=== PATIENT | male | born 1965 | race Caucasian/White ===

== ENCOUNTER 2018-09-24 10:40 | Emergency (ER) | payer MEDICAID, SELFPAY ==
[2018-09-24 10:42] VITALS: BP 162/88; PULSE 69; RESP 16; TEMP 36.2; O2SAT 96; BMI 37.3
--- NOTE | 2018-09-24 11:02 | US_ITS ---
STUDY: SCROTUM ULTRASOUND REASON FOR EXAM: Male, 52 years old. Swelling in the right testicle. TECHNIQUE: Ultrasound evaluation of the scrotum was performed with color Doppler and static sagastume-scale imaging. COMPARISON: None. FINDINGS: RIGHT TESTICLE INTRATESTICULAR: There is a normal size of the right testicle. The right testicle measures 4.3 cm x 3.5 cm x 3.6 cm. There is a homogenous echotexture. There is normal arterial and normal venous vascularity. There is no demonstrated right testicular mass or cyst. EXTRATESTICULAR: The epididymis is normal in size. The epididymis head measures 1.3 cm x 0.7 cm x 0.8 cm. There is normal vascularity of the epididymis. There is no demonstrated epididymal cystic structure. There is a moderate size hydrocele. There is no demonstrated varicocele. There is no demonstrated extratesticular mass or cyst. LEFT TESTICLE INTRATESTICULAR: There is a normal size of the left testicle. The left testicle measures 4.2 cm x 3.5 cm x 3.4 cm. There is a homogenous echotexture. There is normal arterial and normal venous vascularity. There is no demonstrated left testicular mass or cyst. EXTRATESTICULAR: The epididymis is normal in size. The epididymis head measures 1.2 cm x 1 cm. cm. There is normal vascularity of the epididymis. There is no demonstrated epididymal cystic structure. There is a moderate size hydrocele. There is no demonstrated varicocele. There is no demonstrated extratesticular mass or cyst. US/Testicular with Arterial Flow IMPRESSION: Moderate sized bilateral hydroceles. Electronically Signed: Melquiades Stallings MD at 13:40 EDT Tel [phone], Service support ,
[2018-09-24 11:40] VITALS: RESP 14
[2018-09-24 11:49] LABS: Bacteria 0 SEEN /hpf (None Seen); Color, Urine Yellow (Yellow); Glucose, Dipstick Normal (Normal); Ketone-Dipstick Negative (Negative); Leukocyte Esterase-Dipstick 500 /ul (Negative); Mucous, Urine 0 SEEN /hpf (<or=2+); Nitrite-Dipstick Negative (Negative); Occult Blood-Urine 250 /ul (Negative); Protein-Dipstick 30 mg/dl (Negative); Urine Bilirubin Dipstick Negative (Negative); Urine Clarity Sl. Cloudy (Clear); Urine Urobilinogen Normal (Normal)
[2018-09-24 11:56] LABS: Red Blood Cells-Urine 25-50 SEEN /hpf (0-5); Squamous Epithelial Cells - UA 0-5 SEEN /hpf (0-5); White Blood Cells 25-50 SEEN /hpf (0-5)
--- NOTE | 2018-09-24 12:24 | ED.VISSUMM ---
- ER Visit Summary Date of Service: 09/24/18 Chief Complaint: Testicular swelling History of Present Illness: The patient is a 52 M presenting for evaluation secondary to testicular swelling. Patient reports that today when he was washing himself he noted that his right testicle swollen. He is unsure if there is any sort of injury associated with this, and states that he did not really notice it yesterday. He reports that he recently has been having some issues with urinary urgency, and this week he had a single episode of hematuria. Patient denies any presence of fevers or flank pain. Denies any penile discharge. He denies any significant rashes over his groin area. He does have an underlying history of diabetes. Patient reports that he has lost about 100 pounds in the last year and a half that this was intentional. Review of systems otherwise negative. Physical Examination: Vital signs notable for mild hypertension 162/88. Obese male no acute distress. Moist mucous membranes no conjunctival pallor or scleral icterus. Heart was regular rate and rhythm, no JVD was noted. Lung sounds clear no respiratory distress. Abdomen soft nontender. exam shows right testicular swelling with some tenderness to palpation. There is a very minimal amount of scrotal erythema with no evidence of tracking into the perineum no evidence of Mary Jane's gangrene or subcutaneous emphysema. No penile discharge. Testicles appear to be in a normal lie. Test Results: Urinalysis shows up to 50 whites and 50 reds. Testicular ultrasound shows good flow with no evidence of masses Emergency Department Course and Treatment: Patient presented for evaluation secondary to blood in the urine and enlargement of his right testicle. Workup is noted as above and shows some evidence of infection. Patient likely has an element of epididymitis at this point. He will be treated with a course of Cipro and will follow up with primary care. Disposition: Discharge Impression: 1. Epididymitis This note was generated with [employer] dictation software. It may contain incorrect words, spelling, and punctuation that were not noted in review of the chart prior to signing ED Disposition - Plan for ED Patient: Disposition: Home or Assisted Living Chief Complaint: Complaint Diagnosis: Acute epididymitis Instructions: ED Epididymitis Prescriptions: Ciprofloxacin [Cipro] 500 mg PO BID #14 tab Referrals: Galina Darden NP-C [Primary Care Provider] - 5-7 Days
[2018-09-24 14:21] VITALS: BP 176/90; PULSE 80; RESP 17; O2SAT 99
--- NOTE | 2018-09-24 14:21 | ED.RN ---
DISCHARGE INSTRUCTIONS GIVEN TO AND REVIEWED WITH PATIENT, PATIENT DENIES QUESTIONS OR CONCERNS AND VOICES UNDERSTANDING OF DISCHARGE INSTRUCTIONS. PT AMBULATES OUT OF ROOM WITHOUT DIFFICULTY.
== END 2018-09-24 14:23 | disposition home or self-care (01) ==
PROVIDERS: Emergency Provider Emergency Medicine; Family Provider Nurse Practitioner Family; PCP Nurse Practitioner Family
DX: N45.1 Epididymitis (principal); R31.9 Hematuria, unspecified; E66.9 Obesity, unspecified; I11.0 Hypertensive heart disease with heart failure; I50.9 Heart failure, unspecified; J44.9 Chronic obstructive pulmonary disease, unspecified; E11.9 Type 2 diabetes mellitus without complications; I48.91 Unspecified atrial fibrillation; Z79.899 Other long term (current) drug therapy
CPT/HCPCS: 76870; 81001; 93976; 99283

== ENCOUNTER → 2018-10-05 09:57 | Outpatient (CLI) | payer MEDICAID, SELFPAY ==
--- NOTE | 2018-10-05 12:59 | PFT ---
INTRODUCTION: The patient is a 53-year-old male that presents for pulmonary function testing secondary to a diagnosis of COPD. Respiratory therapy reports good patient effort. Bronchodilators were used during testing. INTERPRETATION: Forced expiration spirometry demonstrates no evidence of a large airways obstructive ventilatory defect. There was no significant response to aerosolized bronchodilators. Spirograms are of good quality and plateau normally. The respiratory flow volume loop appears normal. Body plethysmography was performed and reveals lung volumes to be within normal limits. Diffusing capacity by single breath CO is also within normal limits. There has been improvement in the patient's PFTs since they were last completed in 2017. IMPRESSION: Grossly normal pulmonary function testing.
== END ==
PROVIDERS: Family Provider Nurse Practitioner Family; PCP Nurse Practitioner Family; Referring Provider Nurse Practitioner Acute Care; Visit Provider Nurse Practitioner Acute Care
DX: J44.9 Chronic obstructive pulmonary disease, unspecified (principal)
CPT/HCPCS: 94060; 94726; 94729

== ENCOUNTER → 2018-10-06 11:05 | Outpatient (CLI) | payer MEDICAID, SELFPAY ==
[2018-10-06 11:22] VITALS: PULSE 55; PULSE 70; PULSE 88; PULSE 89; PULSE 90; PULSE 91; PULSE 92; O2SAT 92; O2SAT 94; O2SAT 95; O2SAT 96
--- NOTE | 2018-10-06 13:22 | PCM.PSN.6M ---
PSN 6 Minute Walk Test - 6 Minute Walk Test 6 Minute Walk Test: 6 Minute Walk Test PSN:6-Minute Walk Test Start: 10/06/18 11:22 Freq: Status: Active Protocol: RESP.6MINW Document 10/06/18 11:22 PRIETO (Rec: 10/06/18 11:24 PRIETO [id number]) 6 Minute Walk Test Date Performed 10/06/18 Time Performed 11:15 Height 6 ft 4 in Weight: 323 lb Weight in Pounds 323.[address]: Pee Castillo Assistive device used: None Pre-test Oxygen Delivery Method Room Air Pulse Ox (%) 95 Pulse Rate (60-100 beats/min) 55 L Dyspnea Darnell Scale (0-10) 0 Exertion Darnell Scale (6-20) 6 1st minute Oxygen Delivery Method Room Air Pulse Ox (%) 95 Pulse Rate (60-100 beats/min) 88 2nd minute Oxygen Delivery Method Room Air Pulse Ox (%) 92 Pulse Rate (60-100 beats/min) 92 3rd minute Oxygen Delivery Method Room Air Pulse Ox (%) 94 Pulse Rate (60-100 beats/min) 89 4th minute Oxygen Delivery Method Room Air Pulse Ox (%) 94 Pulse Rate (60-100 beats/min) 91 5th minute Oxygen Delivery Method Room Air Pulse Ox (%) 94 Pulse Rate (60-100 beats/min) 90 6th minute Oxygen Delivery Method Room Air Pulse Ox (%) 96 Pulse Rate (60-100 beats/min) 90 Dyspnea Darnell Scale (0-10) 1 Exertion Darnell Scale (6-20) 12 Post-test Oxygen Delivery Method Room Air Pulse Ox (%) 95 Pulse Rate (60-100 beats/min) 70 Full Laps Walked 19 Partial Lap, Number of Tiles Walked 0 Total Distance Walked (ft) 1121 - Interpretation Interpretation: The patient ambulated 1121 feet over the course of 6 minutes beginning on room air without assistive devices or breaks. Pretesting oxygen saturation was noted to be 95% on room air. With ambulation, the yaneth oxygen saturation was 92%. There was no significant exertional oxygen desaturation. - Recommendations Recommendations: There is no indication for the use of supplemental oxygen at this time.
== END ==
PROVIDERS: Family Provider Nurse Practitioner Family; PCP Nurse Practitioner Family; Referring Provider Nurse Practitioner Acute Care; Visit Provider Nurse Practitioner Acute Care
DX: J44.9 Chronic obstructive pulmonary disease, unspecified (principal)
CPT/HCPCS: 94618

== ENCOUNTER 2019-02-21 07:40 | Emergency (ER) | payer MEDICAID, SELFPAY ==
[2018-10-18 13:11] VITALS: BMI 39.4
[2019-02-21 07:42] VITALS: BP 157/89; PULSE 81; RESP 16; TEMP 36.8; O2SAT 97; BMI 37.6
--- NOTE | 2019-02-21 07:58 | RAD_ITS ---
STUDY: X-RAY CHEST REASON FOR EXAM: Male, 53 years old. 12 hour history of shortness of breath. TECHNIQUE: PA and lateral views of the chest. COMPARISON: Comparison is made with prior examination dated November 08, 2010. FINDINGS: EKG electrodes are seen. There is evidence of a focal area of infiltrate in the lateral aspect of the right mid lung. There is also evidence of bowel widening of the right paratracheal space suggestive of possible adenopathy. There is blunting of the right costophrenic angle. Normal size heart. Normal mediastinum and inge. Normal visualized pulmonary arteries. There is atherosclerotic calcification of the aortic arch with tortuosity. There are diffuse degenerative changes of the visualized thoracic spine. Normal visualized ribs, clavicles, and shoulders. There is no demonstrated abnormality of the visualized soft tissue structures of the upper abdomen. RAD/Chest PA and Lateral IMPRESSION: Focal infiltrate in the lateral aspect of the right mid lung with possible right paratracheal lymph nodes. Follow-up is recommended. Electronically Signed: Melquiades Stallings, at 9:02 EDT , Service support ,
--- NOTE | 2019-02-21 08:02 | ED.DCSUM_ITS ---
- ER Visit Summary Date of Service: 02/21/19 Chief Complaint: Shortness of breath History of Present Illness: The patient is a 53 M who presents with shortness of breath that has been getting worse over the past 12 hours. Patient states he has been having some cough with some clear sputum. Patient states the sputum did appear to be pink at times but states she was eaten candy canes last night prior to that. Patient denies any fevers but admits to subjective chills. Patient states he has had an upper respiratory infection with rhinorrhea and sore throat. Patient also admits to right-sided pleuritic chest pain. Patient denies any nausea or vomiting. Patient denies any abdominal pain. Physical Examination: Vital signs are stable. Patient is afebrile. Patient is in no acute distress. Oral mucosa is pink and moist. Neck is supple. Trachea is midline. There is no JVD noted. Heart was irregularly irregular. Lungs were diminished bilaterally. There is adequate respiratory effort noted. Abdomen is soft. Bowel sounds are normal. There is no tenderness. Cranial nerves II through XII are intact. There are no focal motor or sensory deficits noted. The remaining physical exam is within normal limits. Test Results: CBC and comprehensive metabolic profile within normal limits. PA and lateral chest x-ray shows an infiltrate in the lateral right mid lung field. Emergency Department Course and Treatment: Patient was given a DuoNeb aerosol here. Patient was given a prescription for Zithromax. Patient was instructed to follow-up with his primary care physician in 5-7 days. Patient understood and was agreeable with the plan. All questions were answered. Disposition: Discharge home Impression: Community-acquired pneumonia This note was generated with [employer] dictation software. It may contain incorrect words, spelling, and punctuation that were not noted in review of the chart prior to signing ED Disposition - Plan for ED Patient: Disposition: Home or Assisted Living Diagnosis: Community acquired pneumonia Instructions: ED Pneumonia Adult Prescriptions: Azithromycin [Zithromax Z-Robert] 250 mg PO UD #1 box Referrals: Galina Darden, LORI-C [Primary Care Provider] - 5-7 Days
[2019-02-21] MEDS: Ipratropium/Albuterol Sulfate 3 ML AMPUL.NEB INHALATION (08:11)
[2019-02-21 08:13] VITALS: PULSE 64; RESP 17; O2SAT 96
[2019-02-21 08:20] LABS: Absolute Lymphocyte Count 1.44 X10^3/ul (0.83-4.51); Absolute Neutrophil Count 5.2 X10^3/uL (2.0-7.7); Basophil# 0.01 X10^3/uL; Basophil% 0.1 % (0-1); Eosinophil# 0.06 X10^3/uL; Eosinophils% 0.8 % (0-5); Hematocrit 46.2 % (40-54); Hemoglobin 15.7 g/dl (13.0-16.5); Lymphocyte # 1.44 X10^3/ul (4.0); Lymphocyte % 20.1 % (19-41); Mean Corpuscular Hgb 30.4 pg (27.0-32.0); Mean Corpuscular Volume 89.5 fL (80-94); Mean Platelet Vol. 9.9 fl (6.2-12.0); Monocyte# 0.43 X10^3/uL; Neutrophil # 5.23 X10^3/uL (2.7-7.7); POSITIVE COUNT NO; POSITIVE DIFFERENTIAL NO; POSITIVE MORPHOLOGY NO; Platelet Count 211 K/mm3 (150-450); RBC Distribution Width CV 13.5 % (11.6-14.6); RBC Distribution Width SD 44.7 fl (35.1-43.9); Red Blood Count 5.16 M/mm3 (4.6-6.2); White Blood Count 7.2 K/mm3 (4.4-11.0)
[2019-02-21 08:23] VITALS: O2SAT 97
[2019-02-21 08:24] VITALS: BP 159/94; PULSE 74; RESP 18; O2SAT 96; O2SAT 97
[2019-02-21 08:29] LABS: ALB/GLOB Ratio 0.9 RATIO (0.9-2.4); AST(SGOT) 12 U/L (15-37); Alanine Aminotransfer ALT/SGPT 17 U/L (16-61); Albumin, Serum 3.6 g/dL (3.2-5.0); Alkaline Phosphatase 61 U/L (45-117); Anion Gap 7 (5-15); BUN 9 mg/dL (7-18); Calcium,Total 9.3 mg/dL (8.5-10.1); Chloride 103 mmol/L (98-107); EST Glomerular Filtration Rate 83 mL/min (>60); Est Glom Filt Rate - Afr Amer 100 mL/min (>60); Estimated Creatinine Clearance 103.68 ml/min; Glucose 97 mg/dL (74-106); Potassium 3.9 mmol/L (3.5-5.1); Protein, Total 7.6 g/dL (6.4-8.2); Sodium Level 139 mmol/L (136-145)
[2019-02-21] MEDS: Acetaminophen 500 MG Tablet 1000 MG PO (08:51)
[2019-02-21 09:21] VITALS: PULSE 70; RESP 20; O2SAT 94
== END 2019-02-21 09:22 | disposition home or self-care (01) ==
PROVIDERS: Emergency Provider Emergency Medicine; Family Provider Nurse Practitioner Family; PCP Nurse Practitioner Family
DX: J18.9 Pneumonia, unspecified organism (principal); J45.909 Unspecified asthma, uncomplicated; I10 Essential (primary) hypertension; E78.00 Pure hypercholesterolemia, unspecified; G47.33 Obstructive sleep apnea (adult) (pediatric); I48.91 Unspecified atrial fibrillation; Z72.0 Tobacco use; Z79.51 Long term (current) use of inhaled steroids; Z79.899 Other long term (current) drug therapy
CPT/HCPCS: 71046; 80053; 85025; 94640; 99285; A4216

== ENCOUNTER 2019-02-26 13:50 | Inpatient (IN) | payer MEDICAID, SELFPAY ==
[2019-02-26] VITALS (12 sets, daily range): BP systolic 170–202; BP diastolic 68–98; PULSE 85–111; RESP 16–26; TEMP 36.9–38.8; O2SAT 92–96; BMI 36.6; BMI 36.4; BMI 36.5
--- NOTE | 2019-02-26 13:58 | EKG12_ITS ---
Test Reason : SOB Blood Pressure : / mmHG Vent. Rate : 098 BPM Atrial Rate : 083 BPM P-R Int : 000 ms QRS Dur : 074 ms QT Int : 334 ms P-R-T Axes : 000 -38 074 degrees QTc Int : 426 ms Atrial fibrillation Left axis deviation Anteroseptal infarct (cited on or before 11-APR-2016), age undetermined Abnormal ECG Confirmed by ANNA BARKLEY, HÉCTOR ([id number]), features editor SARY OLIVO ([id number]) on 03/01/2019 1:09:38 PM Referred By: DEANNE Confirmed By:HÉCTOR CASTILLO MD
--- NOTE | 2019-02-26 15:25 | RAD_ITS ---
STUDY: X-RAY CHEST REASON FOR EXAM: Male, 53 years old. Coughing up blood TECHNIQUE: AP COMPARISON: 02/21/2019 FINDINGS: EKG leads project over the chest. Airspace consolidation of the lateral right upper lobe is worse since the prior study. There is no demonstrated pleural abnormality. Normal size heart. Normal mediastinum and inge. Normal visualized pulmonary arteries. Normal visualized aortic arch and descending thoracic aorta. Normal visualized thoracic spine. Normal visualized ribs, clavicles, and shoulders. There is no demonstrated abnormality of the visualized soft tissue structures of the upper abdomen. RAD/Chest 1 View (Portable) IMPRESSION: 1. Worsening right upper lobe consolidation compatible with pneumonia. Electronically Signed: Wilfred Burgess MD at 15:51 EDT , Service support ,
--- NOTE | 2019-02-26 15:28 | ED.VISSUMM ---
- ER Visit Summary Date of Service: 02/26/19 Chief Complaint: Cough History of Present Illness: The patient is a 53 M who was seen in the ER on the for pneumonia. He was treated with a Z-Robert and states he took his last dose yesterday. Patient still has significant cough, short of breath with any exertion, and chills. He states he was using his CPAP a couple nights ago when the water ran out. He woke up very dry and it did have some bloody sputum when he was coughing. Today he sat with his CPAP on all day because he felt like he could not catch his breath. Past history is significant for COPD, diabetes, hypertension, high cholesterol, atrial fibrillation. Patient is currently on Xarelto. Physical Examination: Blood pressure is 185/95, temperature 99.2 in triage, heart rate 85, respiratory rate 26, pulse ox 95% on room air. The time of my exam his oral temperature is 100.4. Patient sitting upright in bed. He is nontoxic appearing. He has dry mucous membranes. Heart is irregular. Lungs sounds are slightly diminished throughout. Abdomen is soft nontender. Test Results: EKG is A. fib at 98 with no sign of acute ischemia. Portable chest x-ray shows worsening right upper lobe consolidation compatible with pneumonia. CBC was normal white count but left shift is noted with 80% neutrophils. Chemistry studies reveal a sodium of 133. Lactate is normal at 1.2. Blood cultures were sent. Emergency Department Course and Treatment: Patient was given Tylenol for fever along with a DuoNeb treatment and IV fluids. Patient had only been given Zithromax previously. He is given Rocephin and Zithromax at this time. Patient be admitted for further antibiotic treatment. Treatment Plan: [] Disposition: Admit Impression: Pneumonia with failed outpatient management This note was generated with [employer] dictation software. It may contain incorrect words, spelling, and punctuation that were not noted in review of the chart prior to signing ED Disposition - Plan for ED Patient: Referrals: Galina Darden NP-C [Primary Care Provider] -
[2019-02-26] MEDS: Acetaminophen 500 MG Tablet 1000 MG PO (15:31)
[2019-02-26] MEDS: 0.9% Normal Saline 1,000 ML 150 ML IV (15:31)
[2019-02-26] MEDS: Ipratropium/Albuterol Sulfate 3 ML AMPUL.NEB INHALATION (15:42)
[2019-02-26 15:46] LABS: Absolute Lymphocyte Count 0.72 X10^3/ul (0.83-4.51); Absolute Neutrophil Count 7.2 X10^3/uL (2.0-7.7); Basophil# 0.01 X10^3/uL; Basophil% 0.1 % (0-1); Eosinophil# 0.01 X10^3/uL; Eosinophils% 0.1 % (0-5); Hematocrit 46.1 % (40-54); Hemoglobin 15.8 g/dl (13.0-16.5); Lymphocyte # 0.72 X10^3/ul (4.0); Lymphocyte % 8.1 % (19-41); Mean Corp Hgb Conc 34.3 g/gl (32-36); Mean Corpuscular Hgb 30.3 pg (27.0-32.0); Mean Corpuscular Volume 88.3 fL (80-94); Mean Platelet Vol. 10.4 fl (6.2-12.0); Monocyte# 1.02 X10^3/uL; Monocyte% 11.4 % (0-10); Neutrophil # 7.17 X10^3/uL (2.7-7.7); Neutrophil % 80.2 % (47-70); Platelet Count 239 K/mm3 (150-450); RBC Distribution Width CV 13.1 % (11.6-14.6); RBC Distribution Width SD 42.4 fl (35.1-43.9); Red Blood Count 5.22 M/mm3 (4.6-6.2); White Blood Count 8.9 K/mm3 (4.4-11.0)
[2019-02-26 15:48] LABS: POSITIVE COUNT NO; POSITIVE DIFFERENTIAL NO; POSITIVE MORPHOLOGY NO
[2019-02-26 15:53] LABS: Anion Gap 5 (5-15); BUN 8 mg/dL (7-18); BUN/Creat Ratio 9.2 RATIO (10-20); Calcium,Total 9.2 mg/dL (8.5-10.1); Chloride 103 mmol/L (98-107); Creatinine, Serum 0.87 mg/dL (0.70-1.30); EST Glomerular Filtration Rate 97 mL/min (>60); Est Glom Filt Rate - Afr Amer 118 mL/min (>60); Estimated Creatinine Clearance 119.17 ml/min; Glucose 114 mg/dL (74-106); Potassium 4.5 mmol/L (3.5-5.1); Sodium Level 133 mmol/L (136-145)
[2019-02-26] MEDS: Azithromycin 250 MG Tablet 500 MG PO (16:29)
[2019-02-26 16:33] LABS: Lactic Acid 1.2 mmol/L (0.4-2.0)
[2019-02-26] MEDS: Ceftriaxone 1 GM/50 ML BAG IV (16:41)
--- NOTE | 2019-02-26 17:42 | PCM.HP.STD ---
<Hernandez Haynesssica - Last Filed: 02/26/19 17:58> Problem List (1) 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 classification Status: Chronic Comment: 76% predicted (2) Marijuana abuse Status: Chronic (3) Tobacco abuse Status: Chronic (4) Lung nodule Status: Chronic (5) Edema Status: Chronic (6) ALEX (obstructive sleep apnea) Status: Chronic Comment: CPAP 10 cm of water (7) Asthma, moderate persistent Status: Chronic (8) HTN (hypertension) Status: Chronic (9) Nicotine abuse Status: Chronic (10) Persistent atrial fibrillation Status: Chronic (11) Diabetes mellitus Status: Chronic (12) Hyperlipidemia Status: Chronic History of Present Illness Date of Admission: 02/26/19 Chief Complaint: Cough, fever, malaise. The patient is a 53 year old M who presents emergency room due to cough, fever and general malaise. He reports he initially presented to ER on Thursday and was diagnosed with pneumonia and discharged on Z-Robert which he completed last dose yesterday. His symptoms have not improved. He reports shortness of breath, productive cough. He also reports intermittent nausea, vomiting, diarrhea which he states is currently resolved. He denies other associated symptoms. He has a past medical history of COPD, ALEX, persistent atrial fibrillation, type 2 diabetes mellitus, hypertension, hyperlipidemia, marijuana and tobacco dependence. Past Medical History Past Medical History (Chronic Problems): Chronic Problems (Last Reviewed 10/18/18 @ 13:27 by Yesi Zuniga) 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 classification (Chronic) 76% predicted Marijuana abuse (Chronic) Tobacco abuse (Chronic) Lung nodule (Chronic) Edema (Chronic) ALEX (obstructive sleep apnea) (Chronic) CPAP 10 cm of water Asthma, moderate persistent (Chronic) HTN (hypertension) (Chronic) Nicotine abuse (Chronic) Persistent atrial fibrillation (Chronic) Diabetes mellitus (Chronic) Hyperlipidemia (Chronic) Medical History: Medical History (Last Reviewed 10/18/18 @ 13:27 by Yesi Zuniga) Marijuana abuse (Chronic) F12.10 Tobacco abuse (Chronic) Z72.0 Lung nodule (Chronic) R91.1 Chest pain (Chronic) R07.9 Edema (Chronic) R60.9 ALEX (obstructive sleep apnea) (Chronic) G47.33 CPAP 10 cm of water Asthma, moderate persistent (Chronic) J45.40 HTN (hypertension) (Chronic) I10 Persistent atrial fibrillation (Chronic) I48.1 Diabetes mellitus (Chronic) E11.9 Hyperlipidemia (Chronic) E78.5 Allergies pioglitazone HCl [From [employer]] Adverse Reaction (Verified 02/26/19 13:54) Other Home Medications: Ambulatory Orders Medication Instructions Recorded Fluoxetine [Prozac] 60 mg PO DAILY 02/05/15 Metoprolol(XL)Succ [Toprol Xl 50 mg PO DAILY 02/05/15 (Beta Eufemia)] Albuterol Sulfate [Proair 2 puff IH Q4H PRN PRN 04/11/16 Respiclick] Fluticasone 0.05% [Flonase Nasal 2 spray NASAL DAILY PRN PRN 04/11/16 [place]] Furosemide [Lasix] 40 mg PO MOWEFR 04/11/16 Pravastatin [Pravachol] 40 mg PO QHS 04/11/16 rivaroxaban 20 mg tablet 20 mg PO QDAY #30 tab 01/18/18 fluticasone furoate 200 1 inh INHALATION QDAY #60 ea 09/17/18 mcg-vilanterol 25 mcg/dose inhalation powder tiotropium bromide 2.5 2 puff INHALATION DAILY #4 g 10/18/18 mcg/actuation mist for inhalation amlodipine 5 mg tablet 5 mg PO DAILY #30 tab 12/17/18 doxazosin 2 mg tablet 2 mg PO QHS #30 tab 12/17/18 losartan 50 mg tablet 50 mg PO BID #180 tab 12/17/18 Azithromycin [Zithromax Z-Robert] 250 mg PO UD #1 box 02/21/19 Surgical History: Surgical History (Last Reviewed 02/26/19 @ 17:47 by ROBERT Torres) History of stomach ulcers Z87.19 cauterization History of tonsillectomy (Resolved) Z98.890, Z90.89 Pilonidal cyst (Resolved) Onset Date: ~1986 L Surgical History: tonsillectomy Psychiatric History: No pertinent psych hx Lives: With Family Smoking Status: Current every day smoker Tobacco Use: Cigarettes Alcohol: None Drugs: Marijuana - *Family History Maternal Family History: Family History (Last Reviewed 02/26/19 @ 17:48 by ROBERT Torres) Father CVA (cerebral vascular accident) Hypertension CAD (coronary artery disease) Mother Sudden cardiac Other Family history of hyperlipidemia Family history of hypertension Family history of sudden cardiac Paternal Family History: Family History (Last Reviewed 02/26/19 @ 17:48 by ROBERT Torres) Father CVA (cerebral vascular accident) Hypertension CAD (coronary artery disease) Mother Sudden cardiac Other Family history of hyperlipidemia Family history of hypertension Family history of sudden cardiac Review of Systems Constitutional: Reports: Chills, Fever, Malaise HEENT: Reports: Sinus Congestion. Denies: Head Aches, Sinus Drainage Cardiovascular: Denies: Chest Pain, Palpitations Respiratory: Reports: Cough, Shortness of Breath, Sputum production Gastrointestinal: Reports: Diarrhea, Nausea, Vomiting. Denies: Abdominal Pain Genitourinary: Denies: Dysuria Musculoskeletal: Denies: Joint Pain, Joint Tenderness Skin: Denies: Rash, Wounds Neurological: Denies: Numbness, Tingling, Focal weakness Psychiatric: Denies: Anxiety, Depression, Homicidal Ideations, Suicidal Ideations Hematologic/ Lymphatic: Denies: Easy Bruising, Easy Bleeding VTE Information - Inpt Only VTE Present on Admission: No VTE Mechan Device Prophylaxis: None VTE Pharm Prophylaxis ordered?: Yes - Physical Exam General: Alert, Oriented x3, Cooperative HEENT: Atraumatic, PERRLA, EOMI, Normocephalic Oral: Moist Mucosa Neck: Supple, No JVD, Negative Carotid Bruits Lungs: Clear to auscultation, Diminished Cardiovascular: Regular Rhythm, Normal S1, Normal S2, No murmurs, Tachycardic Abdomen: Bowel Sounds Present, Soft, Non Tender, Non-Distended, Obese Extremities: No clubbing, No cyanosis, No edema, Capillary Refill Less than 3 Seconds Skin: No rashes, No breakdown, - - Chronic skin changes with hyperpigmentation bilateral lower extremities. Musculoskeletal: No Tenderness to Palpation of Joints or Extremities Neurological: Cranial nerves II-XII grossly intact, Neuro grossly intact Psych/Mental Status: Normal Affect, Appropriate Vital Signs Temp Pulse Resp BP Pulse Ox 100.4 F H 110 H 16 184/71 H 96 02/26/19 16:13 02/26/19 16:13 02/26/19 16:13 02/26/19 16:13 02/26/19 16:13 Oxygen Flow Rate (L/min) 2 Oxygen Delivery Method Nasal Cannula Weight: 301 lb Body Mass Index (BMI) 36.6 Laboratory Tests Past 24 Hrs 02/26/19 02/26/19 02/26/19 15:34 15:34 15:50 WBC 8.9 RBC 5.22 Hgb 15.8 Hct 46.1 MCV 88.3 MCH 30.3 MCHC 34.3 RDW 13.1 RDW Differential 42.4 Plt Count 239 MPV 10.4 Immature Gran % (Auto) 0.100 Neut % (Auto) 80.2 H Lymph % (Auto) 8.1 L [place] % (Auto) 11.4 H Eos % (Auto) 0.1 Baso % (Auto) 0.1 Absolute Neuts (auto) 7.2 Absolute Lymphs (auto) 0.72 L Total Counted Not Reportable Sodium 133 L Potassium 4.5 Chloride 103 Carbon Dioxide 25.0 Anion Gap 5 BUN 8 Creatinine 0.87 Estim Creat Clear Calc 119.17 Est GFR (MDRD) Af Amer 118 Est GFR (MDRD) Non-Af 97 BUN/Creatinine Ratio 9.2 L Glucose 114 H Lactic Acid 1.2 Calcium 9.2 Assessment/Plan All Active Problems (Last Reviewed 02/26/19 @ 17:47 by Yesi Haynes, LORI-C) History of tonsillectomy (Resolved) Pilonidal cyst (Resolved ~1986) 1. Acute community-acquired right upper lobe pneumonia, failed outpatient antibiotic therapy with Z-Robert-chest x-ray on admission with worsening right upper lobe consolidation compatible with pneumonia. Patient was placed on supplemental oxygen although he was not noted to be hypoxic. Send sputum for culture. Blood cultures pending. Urine for strep and Legionella. Albuterol and DuoNeb aerosols. Wean oxygen as tolerated. IV unasyn. Given patient's report of nausea/vomiting/diarrhea which has since resolved, suspicious for viral etiology along with pneumonia. Will check respiratory panel/influenza. 2. Chronic COPD-no acute exacerbation. Follows with Dr. Castillo. 3. ALEX-continue home CPAP regimen. 4. Persistent atrial fibrillation-continue home metoprolol, Xarelto regimen. 5. Type 2 diabetes mellitus-hold oral regimen. Accu-Cheks AC at bedtime with sliding scale insulin. 6. Hypertension-stable, continue home amlodipine, losartan, metoprolol regimen. 7. Hyperlipidemia- continue statin. 8. Marijuana and tobacco dependence-encourage smoking cessation. Requesting nicotine replacement patch. 9. Obesity-reports 140 pound weight loss in the past year. Encouraged continued diet lifestyle modifications. DVT prophylaxis-Lovenox subcu This patient was seen by ROBERT Torres under the supervision of Dr. Peace. <Soham Peace Mariano - Last Filed: 02/26/19 18:03> History of Present Illness The patient is a 53 year old M [] Past Medical History Medical History: Medical History (Last Reviewed 10/18/18 @ 13:27 by Yesi Zuniga) Marijuana abuse (Chronic) F12.10 Tobacco abuse (Chronic) Z72.0 Lung nodule (Chronic) R91.1 Chest pain (Chronic) R07.9 Edema (Chronic) R60.9 ALEX (obstructive sleep apnea) (Chronic) G47.33 CPAP 10 cm of water Asthma, moderate persistent (Chronic) J45.40 HTN (hypertension) (Chronic) I10 Persistent atrial fibrillation (Chronic) I48.1 Diabetes mellitus (Chronic) E11.9 Hyperlipidemia (Chronic) E78.5 Allergies pioglitazone HCl [From [employer]] Adverse Reaction (Verified 02/26/19 13:54) Other Surgical History: Surgical History (Last Reviewed 02/26/19 @ 17:47 by ROBERT Torres) History of stomach ulcers Z87.19 cauterization History of tonsillectomy (Resolved) Z98.890, Z90.89 Pilonidal cyst (Resolved) Onset Date: ~1986 L05.91 - *Family History Maternal Family History: Family History (Last Reviewed 02/26/19 @ 17:48 by ROBERT Torres) Father CVA (cerebral vascular accident) Hypertension CAD (coronary artery disease) Mother Sudden cardiac Other Family history of hyperlipidemia Family history of hypertension Family history of sudden cardiac Paternal Family History: Family History (Last Reviewed 02/26/19 @ 17:48 by ROBERT Torres) Father CVA (cerebral vascular accident) Hypertension CAD (coronary artery disease) Mother Sudden cardiac Other Family history of hyperlipidemia Family history of hypertension Family history of sudden cardiac - Physical Exam Vital Signs Temp Pulse Resp BP Pulse Ox 100.4 F H 110 H 16 184/71 H 96 02/26/19 16:13 02/26/19 16:13 02/26/19 16:13 02/26/19 16:13 02/26/19 16:13 Oxygen Flow Rate (L/min) 2 Oxygen Delivery Method Nasal Cannula Weight: 301 lb Body Mass Index (BMI) 36.6 Laboratory Tests Past 24 Hrs 02/26/19 02/26/19 02/26/19 15:34 15:34 15:50 WBC 8.9 RBC 5.22 Hgb 15.8 Hct 46.1 MCV 88.3 MCH 30.3 MCHC 34.3 RDW 13.1 RDW Differential 42.4 Plt Count 239 MPV 10.4 Immature Gran % (Auto) 0.100 Neut % (Auto) 80.2 H Lymph % (Auto) 8.1 L [place] % (Auto) 11.4 H Eos % (Auto) 0.1 Baso % (Auto) 0.1 Absolute Neuts (auto) 7.2 Absolute Lymphs (auto) 0.72 L Total Counted Not Reportable Sodium 133 L Potassium 4.5 Chloride 103 Carbon Dioxide 25.0 Anion Gap 5 BUN 8 Creatinine 0.87 Estim Creat Clear Calc 119.17 Est GFR (MDRD) Af Amer 118 Est GFR (MDRD) Non-Af 97 BUN/Creatinine Ratio 9.2 L Glucose 114 H Lactic Acid 1.2 Calcium 9.2 Code Visit Addendum: Dr. Peace I personally examined the patient and reviewed the chart. I agree with the above. 53-year-old male who presented to the ER 5 days ago was found to have a right midlung infiltrate and was discharged on Z-Robert. He presents back today with no improvement and actually feels a little bit worse than when he was in the ER previously. He is found to have a larger consolidation on his right mid lung and is now requiring oxygen via nasal cannula to maintain his O2 sat above 92%. Will admit for community-acquired pneumonia and provide Unasyn and azithromycin. He did receive a dose of azithromycin in the ER today. Inpatient E&M: 78443 Init Hosp L3
[2019-02-26] MEDS: 0.9% Normal Saline 1,000 ML 125 ML IV (19:48)
--- NOTE | 2019-02-26 20:10 | EKG12_ITS ---
Test Reason : CHEST PAIN Blood Pressure : / mmHG Vent. Rate : 102 BPM Atrial Rate : 127 BPM P-R Int : 000 ms QRS Dur : 074 ms QT Int : 338 ms P-R-T Axes : 000 -42 099 degrees QTc Int : 440 ms Atrial fibrillation with premature ventricular or aberrantly conducted complexes Left axis deviation Septal infarct , age undetermined , cannot be excluded T wave abnormality, consider lateral ischemia Abnormal ECG Confirmed by TOMAS BARKLEY, ANDREY ([id number]), photograph editor SARY OLIVO ([id number]) on 03/07/2019 11:58:20 AM Referred By: PRIMO Confirmed By:ANDREY MARIN MD
[2019-02-26] MEDS: Metoprolol(XL)Succ 50 MG Tablet PO (20:19)
[2019-02-26] MEDS: Pravastatin 40 MG Tablet PO (20:19)
[2019-02-26] MEDS: Rivaroxaban 20 MG Tablet PO (20:20)
[2019-02-26] MEDS: Losartan Potassium 50 MG Tablet PO (20:20)
[2019-02-26] MEDS: ALPRAZolam 0.5 MG Tablet PO (22:20)
[2019-02-27] VITALS (11 sets, daily range): BP systolic 136–188; BP diastolic 76–104; PULSE 72–111; RESP 16–22; TEMP 36.9–38.2; O2SAT 90–96
[2019-02-27] MEDS: 0.9% Normal Saline 1,000 ML 125 ML IV ×3 (04:06→22:26)
[2019-02-27 06:37] LABS: Absolute Lymphocyte Count 1.22 X10^3/ul (0.83-4.51); Absolute Neutrophil Count 9.5 X10^3/uL (2.0-7.7); Basophil# 0.01 X10^3/uL; Basophil% 0.1 % (0-1); Hematocrit 45.8 % (40-54); Hemoglobin 15.7 g/dl (13.0-16.5); Lymphocyte # 1.22 X10^3/ul (4.0); Lymphocyte % 9.8 % (19-41); Mean Corp Hgb Conc 34.3 g/gl (32-36); Mean Corpuscular Hgb 30.3 pg (27.0-32.0); Mean Corpuscular Volume 88.4 fL (80-94); Mean Platelet Vol. 10.6 fl (6.2-12.0); Monocyte# 1.72 X10^3/uL; Monocyte% 13.8 % (0-10); Neutrophil % 76.1 % (47-70); Platelet Count 238 K/mm3 (150-450); RBC Distribution Width CV 13.1 % (11.6-14.6); RBC Distribution Width SD 42.8 fl (35.1-43.9); Red Blood Count 5.18 M/mm3 (4.6-6.2); White Blood Count 12.5 K/mm3 (4.4-11.0)
[2019-02-27 06:40] LABS: Anion Gap 8 (5-15); BUN 7 mg/dL (7-18); BUN/Creat Ratio 8.4 RATIO (10-20); Chloride 105 mmol/L (98-107); Creatinine, Serum 0.83 mg/dL (0.70-1.30); Differential Indicated SCAN CRITERIA MET; EST Glomerular Filtration Rate 103 mL/min (>60); Est Glom Filt Rate - Afr Amer 124 mL/min (>60); Estimated Creatinine Clearance 124.91 ml/min; Glucose 119 mg/dL (74-106); POSITIVE COUNT NO; POSITIVE DIFFERENTIAL YES; POSITIVE MORPHOLOGY NO; Potassium 3.2 mmol/L (3.5-5.1); Sodium Level 136 mmol/L (136-145)
[2019-02-27] MEDS: hydroCHLOROthiazide 12.5mg 12.5 MG PO (07:11)
[2019-02-27] MEDS: Acetaminophen 325 MG Tablet 650 MG PO ×2 (07:11→13:39)
[2019-02-27] MEDS: levoFLOXacin IV 750 MG/150 ML BAG 100 MG IV (09:37)
[2019-02-27] MEDS: guaiFENesin 1,200 MG Tablet 1200 MG PO ×2 (09:37→22:17)
[2019-02-27] MEDS: Doxazosin 1 MG Tablet 2 MG PO (09:38)
[2019-02-27] MEDS: Losartan Potassium 50 MG Tablet PO ×2 (09:38→22:17)
[2019-02-27] MEDS: FLUoxetine 20 MG Capsule 60 MG PO (09:38)
[2019-02-27] MEDS: amLODIPine 5 MG Tablet PO (09:39)
[2019-02-27] MEDS: Ensure Clear 120 ML Liquid PO ×2 (09:59→13:28)
[2019-02-27] MEDS: Ipratropium/Albuterol Sulfate 3 ML AMPUL.NEB INHALATION ×2 (10:42→15:24)
--- NOTE | 2019-02-27 11:54 | PN_ITS ---
Subjective: Patient seen and examined. Reports he continues to feel terrible. Reports multiple episodes of diarrhea this morning with one episode of incontinence where he was not able to make it to the bathroom. - Physical Exam General: Alert, Oriented x3, Cooperative HEENT: Atraumatic, PERRLA, EOMI, Normocephalic Oral: Moist Mucosa Neck: Supple, No JVD, Negative Carotid Bruits Lungs: Clear to auscultation, Diminished Cardiovascular: Regular rate, Regular Rhythm, Normal S1, Normal S2, No murmurs Abdomen: Bowel Sounds Present, Soft, Non Tender, Non-Distended, Obese Extremities: No clubbing, No cyanosis, No edema, Capillary Refill Less than 3 Seconds Skin: No rashes, No breakdown, - - Chronic skin changes with hyperpigmentation bilateral lower extremities. Musculoskeletal: No Tenderness to Palpation of Joints or Extremities Neurological: Cranial nerves II-XII grossly intact, Neuro grossly intact Psych/Mental Status: Normal Affect, Appropriate Vital Signs Temp Pulse Resp BP Pulse Ox 98.9 F 84 20 H 136/84 H 92 02/27/19 09:29 02/27/19 10:42 02/27/19 10:42 02/27/19 09:29 02/27/19 11:27 Oxygen Flow Rate (L/min) 2 Oxygen Delivery Method Room Air Weight: 299 lb 9.731 oz Body Mass Index (BMI) 36.4 Intake and Output for Last 24 Hours 02/25/19 02/26/19 02/27/19 23:59 23:59 23:59 Intake Total 2278 / 2278 Balance 2278 / 2278 Microbiology Past 72 Hours 02/26/19 19:45 Respiratory Panel (PCR) - Final Mucosa - Nasopharyngeal Laboratory Tests Past 24 Hrs 02/26/19 02/26/19 02/26/19 15:34 15:34 15:50 WBC 8.9 RBC 5.22 Hgb 15.8 Hct 46.1 MCV 88.3 MCH 30.3 MCHC 34.3 RDW 13.1 RDW Differential 42.4 Plt Count 239 MPV 10.4 Immature Gran % (Auto) 0.100 Neut % (Auto) 80.2 H Lymph % (Auto) 8.1 L [place] % (Auto) 11.4 H Eos % (Auto) 0.1 Baso % (Auto) 0.1 Absolute Neuts (auto) 7.2 Absolute Lymphs (auto) 0.72 L Total Counted Not Reportable Sodium 133 L Potassium 4.5 Chloride 103 Carbon Dioxide 25.0 Anion Gap 5 BUN 8 Creatinine 0.87 Estim Creat Clear Calc 119.17 Est GFR (MDRD) Af Amer 118 Est GFR (MDRD) Non-Af 97 BUN/Creatinine Ratio 9.2 L Glucose 114 H Lactic Acid 1.2 Calcium 9.2 MRSA (PCR) 02/27/19 02/27/19 02/27/19 05:48 05:48 10:00 WBC 12.5 H RBC 5.18 Hgb 15.7 Hct 45.8 MCV 88.4 MCH 30.3 MCHC 34.3 RDW 13.1 RDW Differential 42.8 Plt Count 238 MPV 10.6 Immature Gran % (Auto) 0.200 Neut % (Auto) 76.1 H Lymph % (Auto) 9.8 L [place] % (Auto) 13.8 H Eos % (Auto) 0.0 Baso % (Auto) 0.1 Absolute Neuts (auto) 9.5 H Absolute Lymphs (auto) 1.22 Total Counted Not Reportable Sodium 136 Potassium 3.2 L Chloride 105 Carbon Dioxide 23.0 Anion Gap 8 BUN 7 Creatinine 0.83 Estim Creat Clear Calc 124.91 Est GFR (MDRD) Af Amer 124 Est GFR (MDRD) Non-Af 103 BUN/Creatinine Ratio 8.4 L Glucose 119 H Lactic Acid Calcium 9.0 MRSA (PCR) Pending Medical Necessity - Tobacco Use Smoking Status: Current every day smoker Tobacco Use: Cigarettes Assessment/Plan All Active Problems (Last Reviewed 02/26/19 @ 17:47 by Yesi Haynes NP-C) History of tonsillectomy (Resolved) Pilonidal cyst (Resolved ~1986) 1. Acute community-acquired right upper lobe pneumonia, failed outpatient antibiotic therapy with Z-Robert-chest x-ray on admission with worsening right upper lobe consolidation compatible with pneumonia. Patient was placed on supplemental oxygen although he was not noted to be hypoxic. Wean oxygen as tolerated. Sputum culture pending. Blood cultures pending. Albuterol and DuoNeb aerosols. IV Levaquin. Respiratory panel negative. 2. Acute diarrhea- stool for c.diff and enteric bacteriology pending. If negative, can initiate Imodium. 3. Chronic COPD-no acute exacerbation. Follows with Dr. Castillo. 4. ALEX-continue home CPAP regimen. 5. Persistent atrial fibrillation-continue home metoprolol, Xarelto regimen. 6. Type 2 diabetes mellitus-hold oral regimen. Accu-Cheks AC at bedtime with sliding scale insulin. 7. Hypertension-stable, continue home amlodipine, losartan, metoprolol regimen. 8. Hyperlipidemia- continue statin. 9. Marijuana and tobacco dependence-encourage smoking cessation. Requesting nicotine replacement patch. 10. Obesity-reports 140 pound weight loss in the past year. Encouraged continued diet lifestyle modifications. DVT prophylaxis-Xarelto This patient was seen by ROBERT Torres under the supervision of Dr. Dallas.
[2019-02-27 12:09] LABS: M R Staph aureus DNA By PCR Negative (Negative); Probe Check PASS; Specimen Processing Control PASS
[2019-02-27 13:27] LABS: Hemoglobin A1c 5.9 % (4.2-6.3)
[2019-02-27 16:16] LABS: Bedside Glucose 104 mg/dL (70-110)
[2019-02-27] MEDS: Pravastatin 40 MG Tablet PO (18:07)
[2019-02-27] MEDS: Rivaroxaban 20 MG Tablet PO (18:08)
[2019-02-27] MEDS: Metoprolol(XL)Succ 50 MG Tablet PO (18:08)
[2019-02-28] MEDS: Loperamide 2 MG Capsule 4 MG PO (03:53)
[2019-02-28 03:55] VITALS: BP 169/89; PULSE 88; RESP 18; TEMP 37.3; O2SAT 95
[2019-02-28] MEDS: 0.9% Normal Saline 1,000 ML 125 ML IV (06:23)
[2019-02-28 06:49] LABS: Absolute Lymphocyte Count 1.47 X10^3/ul (0.83-4.51); Absolute Neutrophil Count 9.2 X10^3/uL (2.0-7.7); Basophil# 0.01 X10^3/uL; Basophil% 0.1 % (0-1); Eosinophil# 0.02 X10^3/uL; Eosinophils% 0.2 % (0-5); Hematocrit 43.2 % (40-54); Hemoglobin 14.9 g/dl (13.0-16.5); Lymphocyte # 1.47 X10^3/ul (4.0); Lymphocyte % 12.2 % (19-41); Mean Corp Hgb Conc 34.5 g/gl (32-36); Mean Corpuscular Hgb 30.4 pg (27.0-32.0); Mean Corpuscular Volume 88.2 fL (80-94); Mean Platelet Vol. 9.8 fl (6.2-12.0); Monocyte# 1.41 X10^3/uL; Monocyte% 11.7 % (0-10); Neutrophil # 9.16 X10^3/uL (2.7-7.7); Neutrophil % 75.6 % (47-70); Platelet Count 244 K/mm3 (150-450); RBC Distribution Width CV 13.1 % (11.6-14.6); RBC Distribution Width SD 42.1 fl (35.1-43.9); White Blood Count 12.1 K/mm3 (4.4-11.0)
[2019-02-28 06:50] VITALS: PULSE 92; RESP 20; O2SAT 93
[2019-02-28] MEDS: Ipratropium/Albuterol Sulfate 3 ML AMPUL.NEB INHALATION (06:50)
[2019-02-28 06:58] LABS: POSITIVE COUNT NO; POSITIVE DIFFERENTIAL NO; POSITIVE MORPHOLOGY NO
[2019-02-28 07:17] LABS: Anion Gap 9 (5-15); BUN 9 mg/dL (7-18); Calcium,Total 9.2 mg/dL (8.5-10.1); Chloride 107 mmol/L (98-107); Creatinine, Serum 0.82 mg/dL (0.70-1.30); EST Glomerular Filtration Rate 104 mL/min (>60); Est Glom Filt Rate - Afr Amer 126 mL/min (>60); Estimated Creatinine Clearance 126.44 ml/min; Glucose 111 mg/dL (74-106); Potassium 3.5 mmol/L (3.5-5.1); Sodium Level 139 mmol/L (136-145)
--- NOTE | 2019-02-28 09:21 | DCINST_ITS ---
You will use the following diet at home:: Cardiac Discharge Activity: Return to Normal Activity Call your doctor if you observe: Fever of 101 or Higher, Shortness of breath, Dizziness, Fainting spells, Chest pain Allergies/Adverse Reactions: Allergies pioglitazone HCl [From [employer]] Adverse Reaction (Verified 02/26/19 13:54) Other Medications to take at Discharge Fluoxetine [Prozac] 60 mg PO DAILY 02/05/15 Metoprolol(XL)Succ [Toprol Xl (Beta Eufemia)] 50 mg PO DINNER 02/05/15 Albuterol Sulfate [Proair Respiclick] 2 puff IH Q4H PRN PRN 04/11/16 Fluticasone 0.05% [Flonase Nasal [place]] 2 spray NASAL DAILY PRN PRN 04/11/16 Furosemide [Lasix] 40 mg PO MOWEFR 04/11/16 Pravastatin [Pravachol] 40 mg PO DINNER 04/11/16 rivaroxaban 20 mg tablet 20 mg PO QDAY #30 tab 01/18/18 fluticasone furoate 200 mcg-vilanterol 25 mcg/dose inhalation powder 1 inh INHALATION QDAY #60 ea 09/17/18 tiotropium bromide 2.5 mcg/actuation mist for inhalation 2 puff INHALATION DAILY #4 g 10/18/18 doxazosin 2 mg tablet 2 mg PO QHS #30 tab 12/17/18 losartan 50 mg tablet 50 mg PO BID #180 tab 12/17/18 Amlodipine [Norvasc] 10 mg PO DAILY #30 tablet 02/28/19 Levofloxacin [Levaquin] 750 mg PO DAILY #5 tablet 02/28/19 Loperamide [Imodium] 4 mg PO Q6H PRN PRN #10 capsule 02/28/19 hydroCHLOROthiazide [Hydrochlorothiazide] 12.5 mg PO DAILY #30 capsule 02/28/19 The following prescriptions were given: Loperamide [Imodium] 4 mg PO Q6H PRN PRN #10 capsule PRN Reason: Diarrhea Amlodipine [Norvasc] 10 mg PO DAILY #30 tablet hydroCHLOROthiazide [Hydrochlorothiazide] 12.5 mg PO DAILY #30 capsule Levofloxacin [Levaquin] 750 mg PO DAILY #5 tablet Primary Care Physician: Galina Darden NP-C [Primary Care Provider] - Please follow up with your Primary Care Physician in: 1 Week Test Results: Test results from this visit will be discussed in further detail at your follow- up appointment, if applicable. Please Follow Up With: Pee Castillo MD - Or Amanda Rivero When: 2 Weeks Please Follow Up With: Tamanna Fischer PA When: As scheduled, 03/01/19 Proposed Discharge Date: 02/28/19
[2019-02-28 09:52] VITALS: BP 162/95; PULSE 103; RESP 18; TEMP 37.6; O2SAT 95
--- NOTE | 2019-02-28 09:52 | PCM.DC.SUM ---
<Yesi Haynes - Last Filed: 02/28/19 10:06> Discharge Date and Diagnosis Date of Admission: 02/26/19 Date of Discharge: 02/28/19 - Primary Discharge Diagnosis 1. Acute community-acquired right upper lobe pneumonia, failed outpatient antibiotic therapy 2. Acute diarrhea, suspected secondary to #1 3. Hypertensive urgency 4. ALEX 5. Persistent atrial fibrillation 6. Chronic COPD 7. Type 2 diabetes mellitus? Reported history however hemoglobin A1c WNL 8. Hyperlipidemia 9. Marijuana and tobacco dependence 10. Obesity - Secondary Discharge Diagnosis Chronic Problems (Last Reviewed 10/18/18 @ 13:27 by Yesi Zuniga) 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 classification (Chronic) 76% predicted Marijuana abuse (Chronic) Tobacco abuse (Chronic) Lung nodule (Chronic) Edema (Chronic) ALEX (obstructive sleep apnea) (Chronic) CPAP 10 cm of water Asthma, moderate persistent (Chronic) HTN (hypertension) (Chronic) Nicotine abuse (Chronic) Persistent atrial fibrillation (Chronic) Diabetes mellitus (Chronic) Hyperlipidemia (Chronic) Hospital Course and Treatment Imaging Results: Diagnostic Data Chest X-Ray 02/26/19 15:25 IMPRESSION: 1. Worsening right upper lobe consolidation compatible with pneumonia. Electronically Signed: Wilfred Burgess MD at 15:51 EDT , Service support , Operations: None Procedures: None Summary of Care Provided: The patient is a 53 year old M admitted 02/26/2019 due to cough, fever, malaise. 1. Acute community-acquired right upper lobe pneumonia, failed outpatient antibiotic therapy with Z-Robert-chest x-ray on admission with worsening right upper lobe consolidation compatible with pneumonia. Patient was placed on supplemental oxygen although he was not noted to be hypoxic. Oxygen stable on room air. Sputum culture unremarkable. Blood cultures show no growth thus far. Respiratory panel negative. Continue home inhaler/aerosol regimen. Levaquin 750 mg p.o. daily times 5 days at discharge. Follow-up with primary care provider in 1 week. 2. Acute diarrhea, suspected secondary to #1. C. difficile and enteric bacteriology negative. Can continue as needed Imodium. 3. Hypertensive urgency-blood pressure poorly controlled. Home metoprolol and losartan regimen continued. Home amlodipine regimen increased to 10 mg daily. He was additionally started on HCTZ 12.5 mg daily. May require further titration as outpatient. He has cardiology follow-up tomorrow, 03/01/19. 4. ALEX-continue home CPAP regimen. 5. Persistent atrial fibrillation-continue home metoprolol, Xarelto regimen. 6. Type 2 diabetes mellitus-patient has documented history of type 2 diabetes mellitus however hemoglobin A1c 5.9%. This may be due to significant weight loss in the past year. Continue carb controlled diet. 7. Chronic COPD-no acute exacerbation. Follows with Dr. Castillo. 8. Hyperlipidemia- continue statin. 9. Marijuana and tobacco dependence-encourage smoking cessation. 10. Obesity-reports 140 pound weight loss in the past year. Encouraged continued diet lifestyle modifications. General: Alert, Oriented x3, Cooperative HEENT: Atraumatic, PERRLA, EOMI, Normocephalic Oral: Moist Mucosa Neck: Supple, No JVD, Negative Carotid Bruits Lungs: Clear to auscultation, Diminished Cardiovascular: Regular rate, Regular Rhythm, Normal S1, Normal S2, No murmurs Abdomen: Bowel Sounds Present, Soft, Non Tender, Non-Distended, Obese Extremities: No clubbing, No cyanosis, No edema, Capillary Refill Less than 3 Seconds Skin: No rashes, No breakdown, - - Chronic skin changes with hyperpigmentation bilateral lower extremities. Musculoskeletal: No Tenderness to Palpation of Joints or Extremities Neurological: Cranial nerves II-XII grossly intact, Neuro grossly intact Psych/Mental Status: Normal Affect, Appropriate Patient seen and examined prior to discharge. Physical assessment as noted above. Patient is stable for discharge with follow up recommendations as noted above. This patient was seen by ROBERT Torres under the supervision of Dr. Peace. - Physical Exam Vital Signs Temp Pulse Resp BP Pulse Ox 99.1 F 92 20 H 169/89 H 93 02/28/19 03:55 02/28/19 06:50 02/28/19 06:50 02/28/19 03:55 02/28/19 06:50 Oxygen Flow Rate (L/min) 2 Oxygen Delivery Method Room Air Weight: 299 lb 9.731 oz Body Mass Index (BMI) 36.4 Intake and Output for Last 24 Hours 02/26/19 02/27/19 02/28/19 23:59 23:59 23:59 Intake Total 4769 / 4769 7 / 2217 Output Total 350 / 350 Balance 4419 / 4419 2216 / 221 Microbiology Past 72 Hours 02/27/19 09:35 Gram Stain - Final Sputum, Expectorated/Coughed 02/27/19 14:30 Streptococcus pneumoniae Antigen (M - Final Urine, Clean Catch 02/27/19 14:30 Legionella Antigen - Final Urine, Clean Catch 02/27/19 11:00 Enteric Bacteriology - Final Stool 02/27/19 11:00 C. difficile DNA Amplification - Final Stool 02/26/19 19:45 Respiratory Panel (PCR) - Final Mucosa - Nasopharyngeal Laboratory Tests Past 24 Hrs 02/27/19 02/27/19 02/28/19 05:48 10:00 06:30 WBC 12.1 H RBC 4.90 Hgb 14.9 Hct 43.2 MCV 88.2 MCH 30.4 MCHC 34.5 RDW 13.1 RDW Differential 42.1 Plt Count 244 MPV 9.8 Immature Gran % (Auto) 0.200 Neut % (Auto) 75.6 H Lymph % (Auto) 12.2 L [place] % (Auto) 11.7 H Eos % (Auto) 0.2 Baso % (Auto) 0.1 Absolute Neuts (auto) 9.2 H Absolute Lymphs (auto) 1.47 Total Counted Not Reportable Sodium Potassium Chloride Carbon Dioxide Anion Gap BUN Creatinine Estim Creat Clear Calc Est GFR (MDRD) Af Amer Est GFR (MDRD) Non-Af BUN/Creatinine Ratio Glucose Hemoglobin A1c 5.9 Calcium MRSA (PCR) Negative 02/28/19 06:30 WBC RBC Hgb Hct MCV MCH MCHC RDW RDW Differential Plt Count MPV Immature Gran % (Auto) Neut % (Auto) Lymph % (Auto) [place] % (Auto) Eos % (Auto) Baso % (Auto) Absolute Neuts (auto) Absolute Lymphs (auto) Total Counted Sodium 139 Potassium 3.5 Chloride 107 Carbon Dioxide 23.0 Anion Gap 9 BUN 9 Creatinine 0.82 Estim Creat Clear Calc 126.44 Est GFR (MDRD) Af Amer 126 Est GFR (MDRD) Non-Af 104 BUN/Creatinine Ratio 11.0 Glucose 111 H Hemoglobin A1c Calcium 9.2 MRSA (PCR) POC Glucose 02/27/19 16:11 POC Glucose 104 Discharge Diet: Low fat/ Low Cholesterol Discharge Activity: Return to Normal Activity Call your doctor if you observe: Fever of 101 or Higher, Shortness of breath, Dizziness, Fainting spells, Chest pain Home Medications: Medications to take at Discharge Fluoxetine [Prozac] 60 mg PO DAILY 02/05/15 Metoprolol(XL)Succ [Toprol Xl (Beta Efuemia)] 50 mg PO DINNER 02/05/15 Albuterol Sulfate [Proair Respiclick] 2 puff IH Q4H PRN PRN 04/11/16 Fluticasone 0.05% [Flonase Nasal [place]] 2 spray NASAL DAILY PRN PRN 04/11/16 Furosemide [Lasix] 40 mg PO MOWEFR 04/11/16 Pravastatin [Pravachol] 40 mg PO DINNER 04/11/16 rivaroxaban 20 mg tablet 20 mg PO QDAY #30 tab 01/18/18 fluticasone furoate 200 mcg-vilanterol 25 mcg/dose inhalation powder 1 inh INHALATION QDAY #60 ea 09/17/18 tiotropium bromide 2.5 mcg/actuation mist for inhalation 2 puff INHALATION DAILY #4 g 10/18/18 doxazosin 2 mg tablet 2 mg PO QHS #30 tab 12/17/18 losartan 50 mg tablet 50 mg PO BID #180 tab 12/17/18 Amlodipine [Norvasc] 10 mg PO DAILY #30 tablet 02/28/19 Levofloxacin [Levaquin] 750 mg PO DAILY #5 tablet 02/28/19 Loperamide [Imodium] 4 mg PO Q6H PRN PRN #10 capsule 02/28/19 hydroCHLOROthiazide [Hydrochlorothiazide] 12.5 mg PO DAILY #30 capsule 02/28/19 Following Prescrptions Were Given to Patient: Loperamide [Imodium] 4 mg PO Q6H PRN PRN #10 capsule PRN Reason: Diarrhea Amlodipine [Norvasc] 10 mg PO DAILY #30 tablet hydroCHLOROthiazide [Hydrochlorothiazide] 12.5 mg PO DAILY #30 capsule Levofloxacin [Levaquin] 750 mg PO DAILY #5 tablet Primary Care Physician: Galina Darden NP-C [Primary Care Provider] - Please follow up with your Primary Care Physician in: 1 Week Please Follow Up With: Pee Castillo MD - Or Amanda Rivero When: 2 Weeks Please Follow Up With: Tamanna Fischer PA When: As scheduled, 03/01/19 Disposition: Home Minutes spent on discharge:: 35 Patient Condition:: Stable Medical Necessity - Tobacco Use Smoking Status: Current every day smoker Tobacco Use: Cigarettes Meaningful Use Info Meaningful Use Diagnoses (Choose all that apply): None applicable <Soham Peace Mariano - Last Filed: 02/28/19 11:48> Discharge Date and Diagnosis - Secondary Discharge Diagnosis Chronic Problems (Last Reviewed 10/18/18 @ 13:27 by Yesi Zuniga) 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 classification (Chronic) 76% predicted Marijuana abuse (Chronic) Tobacco abuse (Chronic) Lung nodule (Chronic) Edema (Chronic) ALEX (obstructive sleep apnea) (Chronic) CPAP 10 cm of water Asthma, moderate persistent (Chronic) HTN (hypertension) (Chronic) Nicotine abuse (Chronic) Persistent atrial fibrillation (Chronic) Diabetes mellitus (Chronic) Hyperlipidemia (Chronic) Hospital Course and Treatment Summary of Care Provided: The patient is a 53 year old M [] - Physical Exam Vital Signs Temp Pulse Resp BP Pulse Ox 99.6 F H 103 H 18 159/97 H 96 02/28/19 09:52 02/28/19 09:52 02/28/19 09:52 02/28/19 10:24 02/28/19 10:14 Oxygen Flow Rate (L/min) 2 Oxygen Delivery Method Room Air Weight: 299 lb 9.731 oz Body Mass Index (BMI) 36.4 Intake and Output for Last 24 Hours 02/26/19 02/27/19 02/28/19 23:59 23:59 23:59 Intake Total 4769 / 4769 2217 / 2217 Output Total 350 / 350 Balance 4419 / 4419 2217 / 2217 Microbiology Past 72 Hours 02/27/19 09:35 Gram Stain - Final Sputum, Expectorated/Coughed Respiratory Culture - Preliminary Presumptive C albicans Gram negative ap 02/27/19 14:30 Streptococcus pneumoniae Antigen (M - Final Urine, Clean Catch 02/27/19 14:30 Legionella Antigen - Final Urine, Clean Catch 02/27/19 11:00 Enteric Bacteriology - Final Stool 02/27/19 11:00 C. difficile DNA Amplification - Final Stool 02/26/19 19:45 Respiratory Panel (PCR) - Final Mucosa - Nasopharyngeal Laboratory Tests Past 24 Hrs 02/27/19 02/27/19 02/28/19 05:48 10:00 06:30 WBC 12.1 H RBC 4.90 Hgb 14.9 Hct 43.2 MCV 88.2 MCH 30.4 MCHC 34.5 RDW 13.1 RDW Differential 42.1 Plt Count 244 MPV 9.8 Immature Gran % (Auto) 0.200 Neut % (Auto) 75.6 H Lymph % (Auto) 12.2 L [place] % (Auto) 11.7 H Eos % (Auto) 0.2 Baso % (Auto) 0.1 Absolute Neuts (auto) 9.2 H Absolute Lymphs (auto) 1.47 Total Counted Not Reportable Sodium Potassium Chloride Carbon Dioxide Anion Gap BUN Creatinine Estim Creat Clear Calc Est GFR (MDRD) Af Amer Est GFR (MDRD) Non-Af BUN/Creatinine Ratio Glucose Hemoglobin A1c 5.9 Calcium MRSA (PCR) Negative 02/28/19 06:30 WBC RBC Hgb Hct MCV MCH MCHC RDW RDW Differential Plt Count MPV Immature Gran % (Auto) Neut % (Auto) Lymph % (Auto) [place] % (Auto) Eos % (Auto) Baso % (Auto) Absolute Neuts (auto) Absolute Lymphs (auto) Total Counted Sodium 139 Potassium 3.5 Chloride 107 Carbon Dioxide 23.0 Anion Gap 9 BUN 9 Creatinine 0.82 Estim Creat Clear Calc 126.44 Est GFR (MDRD) Af Amer 126 Est GFR (MDRD) Non-Af 104 BUN/Creatinine Ratio 11.0 Glucose 111 H Hemoglobin A1c Calcium 9.2 MRSA (PCR) POC Glucose 02/27/19 16:11 POC Glucose 104 Code Visit Addendum: Dr. Peace I personally reviewed the chart. I agree with the above. 53-year-old male who I admitted 2 days ago presenting with community-acquired pneumonia that had worsened over the course of the previous week. He completed a Z-Robert as well as 2 doses of azithromycin and then was transitioned to Levaquin. He has continued to improve and was stable for discharge today. He will be discharged on Levaquin for 5 more days. Inpatient E&M: [id number] Disch Hosp
[2019-02-28] MEDS: Ensure Clear 120 ML Liquid PO (09:56)
[2019-02-28] MEDS: Doxazosin 1 MG Tablet 2 MG PO (09:56)
[2019-02-28] MEDS: guaiFENesin 1,200 MG Tablet 1200 MG PO (09:57)
[2019-02-28] MEDS: hydroCHLOROthiazide 12.5mg 12.5 MG PO (09:57)
[2019-02-28] MEDS: Losartan Potassium 50 MG Tablet PO (09:57)
[2019-02-28] MEDS: FLUoxetine 20 MG Capsule 60 MG PO (09:58)
[2019-02-28] MEDS: amLODIPine 10 MG Tablet PO (10:12)
[2019-02-28 10:14] VITALS: O2SAT 96
[2019-02-28 10:24] VITALS: BP 159/97
[2019-02-28 10:30] VITALS: BP 159/97; PULSE 103; RESP 18; TEMP 37.6; O2SAT 95
--- NOTE | 2019-02-28 10:54 | CASEMGMT ---
RN CM attempted to complete assessment with patient. Patient was discharged to home prior to RN CM completing assessment.
--- NOTE | 2019-03-01 16:21 | CASEMGMT ---
CORTNEY CM DC PHONE CALL DC DATE: 02/28/19 DC Disposition: [phone] LACE/STRATA: 11/02 Attempted call to phone. Message not left as there was no identifier. Jewell PRITCHARDN RN ACM
== END 2019-02-28 10:30 | disposition home or self-care (01) | DRG 139 ==
LOC: ED 15:34 → MS3 18:13
PROVIDERS: Family Medicine; Admitting Provider Family Medicine; Emergency Provider Emergency Medicine; Family Provider Nurse Practitioner Family; PCP Nurse Practitioner Family; Visit Provider Family Medicine
DX: J18.9 Pneumonia, unspecified organism (principal); G47.33 Obstructive sleep apnea (adult) (pediatric); E78.5 Hyperlipidemia, unspecified; I10 Essential (primary) hypertension; Z79.84 Long term (current) use of oral hypoglycemic drugs; E66.9 Obesity, unspecified; Z68.36 Body mass index [BMI] 36.0-36.9, adult; I48.1 Persistent atrial fibrillation; Z79.01 Long term (current) use of anticoagulants; I16.0 Hypertensive urgency; J44.9 Chronic obstructive pulmonary disease, unspecified; F17.210 Nicotine dependence, cigarettes, uncomplicated; R19.7 Diarrhea, unspecified; F12.20 Cannabis dependence, uncomplicated; J45.40 Moderate persistent asthma, uncomplicated
CPT/HCPCS: 36415; 71045; 80048; 82962; 83036; 83605; 85025; 87040; 87070; 87106; 87186; 87205; 87449; 87493; 87506; 87633; 87641; 93005; 94640; 94660; 94760; 97802; 99283; J7030; J0295

== ENCOUNTER → 2019-04-08 | Outpatient (CLI) | payer MEDICAID, SELFPAY ==
[2019-03-11 09:53] VITALS: BMI 36.7
--- NOTE | 2019-04-08 08:10 | CT_ITS ---
STUDY: CT CHEST WITHOUT CONTRAST REASON FOR EXAM: Male, 53 years old. Nodule follow-up RADIATION DOSAGE (If Supplied By Facility): CTDIvol = ( 20.15 ) mGy, DLP = ( 760.27 ) mGycm TECHNIQUE: Transaxial imaging was performed without the administration of intravenous contrast material. Multiplanar coronal and sagittal images were reformatted. Individualized dose optimization techniques were used for this CT. COMPARISON: 09/25/2017 FINDINGS: Moderate volume pleural effusion with compressive atelectasis of the right lower lobe. There are multiple spiculated masslike consolidations of the right upper lobe with the largest along the periphery measuring 2.9 x 3.6 cm. Bulky adenopathy of the mediastinum and right hilum new since the prior study. Anterior and superior mediastinal (Station 2R) lymph nodes measure 1.5 cm in short axis on image 42. Paratracheal (station 4) adenopathy measure up to 1.3 cm in short axis on image 43. Precarinal (station 4) kristin mass is a short axis of 2.1 cm on image 54. A kristin mass in the subcarinal (station 7) measures 2.8 x 4.9 cm. The mediastinal adenopathy is contiguous with right hilar (station 10-11) adenopathy although measurements are difficult given lack of IV contrast. No obvious adenopathy of the left side. There is an enlarged lymph node posterior to the right jugular vein (Station 1) on image 5 with short axis measuring 1.4 cm with additional small lymph nodes extending inferiorly to the mediastinum. A 1.1 cm lymph node anterior to the right jugular vein is seen on image 7. Left lung is unremarkable without evidence of mass or focal infiltrate. Normal heart and pericardium. There are calcifications of the coronary arteries. Normal unenhanced pulmonary arteries. There is atherosclerotic calcification of the aortic arch with tortuosity and elongation of the aortic arch and descending thoracic aorta. There are multi-level degenerative changes of the thoracic spine. There is no demonstrated abnormality of the visualized upper abdomen. CT/Chest without Contrast IMPRESSION: 1. Masslike consolidation of the right upper lobe (multifocal) with bulky mediastinal, right hilar and right supraclavicular adenopathy very worrisome for neoplasm. Tissue sampling suggested. Moderate size right pleural effusion with compressive atelectasis of the right lower lobe. Electronically Signed: Wilfred Burgess MD at 22:17 EDT , Service support ,
== END | disposition home or self-care (01) ==
LOC: CT 08:09
PROVIDERS: Family Provider Nurse Practitioner Family; PCP Nurse Practitioner Family; Referring Provider Nurse Practitioner Acute Care; Visit Provider Nurse Practitioner Acute Care
DX: R91.1 Solitary pulmonary nodule (principal)
CPT/HCPCS: 71250

== ENCOUNTER → 2019-04-15 | Outpatient (CLI) | payer MEDICAID, SELFPAY ==
[2019-03-01 09:50] VITALS: BMI 36.7
[2019-03-11 09:53] VITALS: BMI 36.7
--- NOTE | 2019-04-15 13:54 | ECHOD_ITS ---
Reason For Study: Afib, Aflutter Procedure This was a 2D Doppler, Color Flow transthoracic echocardiogram. Exam performed in department. Left Ventricle Normal LV size. Left ventricular systolic function is normal. The estimated ejection fraction is 60 %. Unable to assess diastolic dysfunction due to arrhythmia. No regional wall motion abnormalities noted. Right Ventricle Normal RV size. Normal systolic function. Atria Normal left atrium. Normal right atrium. Mitral Valve Normal mitral valve. Trivial eccentric mitral valve insufficiency. Tricuspid Valve Normal tricuspid valve. Mild (1+) tricuspid valve insufficiency. Pulmonary artery systolic pressure is 30 mmHg. Aortic Valve Normal aortic valve. Trisinus/trileaflet aortic valve. Pulmonic Valve Normal pulmonic valve. Great Vessels Normal aortic root. The pulmonary artery is normal size. Normal inferior vena cava. Pericardium/Pleural No pericardial effusion. MMode/2D Measurements & Calculations LVIDd: 4.7 cm IVSd: 2.0 cm Ao root diam: 3.6 cm LVIDs: 3.4 cm LVPWd: 1.5 cm RVDd: 3.5 cm FS: 26.8 % LAV(MOD-bp): 93.3 ml LVAd ap4: 31.2 cm2 SV(MOD-sp4): 55.2 ml LAV(MOD-bp) Indexed: 35.6 ml/m2 EDV(MOD-sp4): 99.1 ml LAV(MOD-sp2): 92.4 ml EDV(sp4-el): 103.8 ml LAV(MOD-sp4): 88.3 ml LVAs ap4: 19.2 cm2 ESV(MOD-sp4): 43.9 ml ESV(sp4-el): 45.3 ml EF(MOD-sp4): 55.7 % EF(sp4-el): 56.3 % SV(sp4-el): 58.5 ml LA A4 area: 25.7 cm2 LA dimension(2D): 5.4 cm RA A4 area: 18.7 cm2 Doppler Measurements & Calculations MV E max raad: 109.7 cm/sec Ao V2 max: 132.6 cm/sec LV V1 max: 105.6 cm/sec Ao max P.1 mmHg LV V1 max P.5 mmHg Ao V2 mean: 97.1 cm/sec Ao mean P.1 mmHg Ao V2 VTI: 27.2 cm PA V2 max: 91.8 cm/sec TR max raad: 259.4 cm/sec TR max P.9 mmHg Interpretation Summary Normal LV size. Left ventricular systolic function is normal. The estimated ejection fraction is 60 %. Unable to assess diastolic dysfunction due to arrhythmia. Mild (1+) tricuspid valve insufficiency. Compared to prior study, there is no significant change. Ordering Physician: Tamanna Fischer Referring Physician: Olga Amor [facility] Performed By: Beckie Ashley, NA, RVT
== END | disposition home or self-care (01) ==
LOC: CVS 13:50
PROVIDERS: Referring Provider Physician Assistant Medical; Visit Provider Physician Assistant Medical
DX: I48.1 Persistent atrial fibrillation (principal); I10 Essential (primary) hypertension; R06.00 Dyspnea, unspecified
CPT/HCPCS: 93306

== ENCOUNTER 2019-04-29 11:34 | Day surgery (SDC) | payer MEDICAID, SELFPAY ==
[2019-04-15 14:47] VITALS: BMI 36.7
[2019-04-28 10:43] LABS: Platelet Count 262 K/mm3 (150-450)
[2019-04-28 10:53] LABS: International Normalized Ratio 1.2; Partial Thromboplast Time 34.8 Seconds (24.1-36.2); Prothrombin Time (Protime)PT. 15.3 SECONDS (11.7-14.9)
[2019-04-29] VITALS (9 sets, daily range): BP systolic 89–125; BP diastolic 49–81; PULSE 58–73; RESP 16–22; TEMP 36.1–36.6; O2SAT 87–95; BMI 35.2
--- NOTE | 2019-04-29 | IMM_PTH ---
PATIENT: RONALDO ADAM LOC: EN U#:[id number] AGE/SX: 53/M ROOM: RE04/29/[address]: Dr. Pee Castillo MD : 1965 BED: DIS: 04/29/2019 SPEC #: [id number] RECD: 05/03/19 10:19 STATUS: WALE REQ #: [id number] WILFREDO: 04/29/19 00:[address]: Pee Castillo DEPT: IMMUNOHISTOCHEMISTRY RECD BY: Marybeth Olguin ENTERED: 05/03/19 10:21 SP TYPE: IMMUNO OTHR DR: Galina Darden, PRUNER-C [facility] Tissues: E - Lung, NOS Procedures: Synapto (add) NAPSIN A (add) CD45 (add) CD56 (add) CHROMO (add) CK20 (add) CK7 (add) CK8 (add) GORDON-2 (add) KI-67 (add) P53 (add) TTF1 (add) NEUROFIL (add) Pankeratin (initial) P40 (add) NSE (add) PHYSICIAN & INSTITUTION [address] [address] SPECIMEN INFORMATION: Tissue Source: E - TBNA, site 7 Clinical Info: Lung mass Specimen Number: [id number] CPT code: 33528, 83195 x15 METHODOLOGY: Deparaffinized sections of prefer/formalin-fixed tissue or PAP/DQ stained slides are incubated with monoclonal/polyclonal antibodies/oligonucleotide probes. Localization is made via biotin free immunoperoxidase method. Appropriate controls are performed and reacted as expected. Results on target cell population are indicated in the following table: RESULTS: ANTIBODY / CLONE RESULT Block E AE1-3 (AE1/AE3/PCK26) positive CK7 (OV-TL12/30) positive CK8 (19ksljN51) positive CK20 (KS20.8) negative CD45 (RP2/18) negative P40 (BC28) negative CD56 (123C3.D5) positive Chromo (LK2H10) positive, focal Synapto (polyclonal) positive Neurofil (2F11) negative NSE Neuron Specific Enolase positive TTF-1 (8G7G3/1) positive, dim, focal Napsin A (Rabbit Polyclonal) negative Ki-67 (30-9) positive, >95% P53 (DO-7) positive, 10% GORDON-2 (SP21) negative These tests were developed and their performance characteristics determined by [facility]. They may not have been cleared or approved by the U.S. Food and Drug Administration. The FDA has determined that such clearance or approval is not necessary. INTERPRETATION: E. TBNA, EBUS, site 7: Positive for malignant cells consistent with small cell carcinoma of lung. AM:terra 05/04/19
--- NOTE | 2019-04-29 | FLU_PTH ---
PATIENT: RONALDO ADAM LOC: EN U#:[id number] AGE/SX: 53/M ROOM: RE04/29/[address]: Dr. Pee Castillo MD : 1965 BED: DIS: 04/29/2019 SPEC #: [id number] RECD: 04/29/19 14:23 STATUS: WALE KODI #: [id number] WILFREDO: 04/29/19 00:[address]: Pee Castillo DEPT: CYTOLOGY RECD BY: Joselito Ling ENTERED: 04/29/19 14:24 SP TYPE: Fluid OTHR DR: Galina Darden, FORKLIFT OPERATOR-C [facility] Tissues: A - Lung, NOS B - Lung, NOS C - Lung, NOS D - Lung, NOS E - Lung, NOS F - Lung, NOS Procedures: Special Stain Group II Surgery Specimen Level IV Cytospin Fluid Cytology Other HEADER OPERATION: Endobronchial ultrasound PRE-OP DIAGNOSIS: Lung mass TISSUE SUBMITTED: A & B - EBUS, site 4R, C & D - EBUS, site 7, E - TBNA, site 7, F - TBNR, site?7, G - Fluid DIAGNOSIS CYTOLOGY A. EBUS, aspiration 1, site 4R (smears): Blood and macrophages. B. EBUS, aspiration 2, site 4R (smears): Blood, macrophages and respiratory epithelial cells. C. EBUS, aspiration 3, site 7 (smears): Positive for malignant cells consistent with small cell carcinoma of lung origin. D. EBUS, aspiration 4, site 7 (smears): Positive for malignant cells consistent with small cell carcinoma of lung origin. E. 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 F. Transbronchial needle aspiration, EBUS, site 7 (cytospin and cell block): Positive for malignant cells consistent with small cell carcinoma. See comment. G. Lung washings (cytospin and cell block): Negative for malignant cells. Scattered bacterial colonies present. AM:terra 05/04/19 AM:terra 07/31/20 COMMENT The specimen is evaluated at the time of procedure by Dr. Post. Immediate evaluation: A. EBUS, aspiration 1, site 4R: Blood and macrophages. Reported at 1:09 p.m. B. EBUS, aspiration 2, site 4R: Blood and respiratory epithelial cells. Reported at 1:14 p.m. C. EBUS, aspiration 3, site 7: Positive for malignant cells suspicious for small cell carcinoma. Reported at 1:27 p.m. D. EBUS, aspiration 4, site 7: Positive for malignant cells suspicious for small cell carcinoma. Reported at 1:29 p.m. F. Immunohistochemistry ([id number]) supports the above diagnosis. Case has been reviewed in consultation with Dr. Alvarenga who concurs with the above diagnosis. IDC:SJ CYTOLOGY STUDY Slides are reviewed. CYTOLOGY GROSS A - Received labeled with the patient's name and , and designated EBUS, aspiration 1, site 4R. The specimen consists of two smears that are submitted for immediate cytologic evaluation (wet read). B - Received labeled with the patient's name and , and designated EBUS, aspiration 2, site 4R. The specimen consists of two smears that are submitted for immediate cytologic evaluation (wet read). C - Received labeled with the patient's name and , and designated EBUS, aspiration 3, site 7. The specimen consists of two smears that are submitted for immediate cytologic evaluation (wet read). D - Received labeled with the patient's name and , and designated EBUS, aspiration 4, site 7. The specimen consists of two smears that are submitted for immediate cytologic evaluation (wet read). E - Received labeled with the patient's name and , and designated TBNA, site 7. The specimen consists of two smears. F - Received labeled with the patient's name and , and designated TBNR, site 7. The specimen consists of two smears and cell block. G - Received is 20 ml of red cloudy fluid labeled with the patient's name and and designated per the requisition as washing. Submitted for cytology preparation including cell block. / AM:terra 04/29/19 TC:0 CPT: 94207 x2, 92092 x4, 96478 x2, 60794 x3
--- NOTE | 2019-04-29 | FLU_PTH ---
PATIENT: RONALDO ADAM LOC: EN U#:[id number] AGE/SX: 53/M ROOM: RE04/29/[address]: Dr. Pee Castillo MD : 1965 BED: DIS: 04/29/2019 SPEC #: [id number] RECD: 04/29/19 14:23 STATUS: WALE KODI #: [id number] WILFREDO: 04/29/19 00:[address]: Pee Castillo DEPT: CYTOLOGY RECD BY: Joselito Ling ENTERED: 04/29/19 14:24 SP TYPE: Fluid OTHR DR: Galina Darden, [employer] Tissues: A - Lung, NOS B - Lung, NOS C - Lung, NOS D - Lung, NOS E - Lung, NOS F - Lung, NOS Procedures: Special Stain Group II Surgery Specimen Level IV Cytospin Fluid Cytology Other HEADER OPERATION: Endobronchial ultrasound PRE-OP DIAGNOSIS: Lung mass TISSUE SUBMITTED: A & B - EBUS, site 4R, C & D - EBUS, site 7, E - TBNA, site 7, F - TBNR, site 7, G - Fluid DIAGNOSIS CYTOLOGY A. EBUS, aspiration 1, site 4R (smears): Blood and macrophages. B. EBUS, aspiration 2, site 4R (smears): Blood, macrophages and respiratory epithelial cells. C. EBUS, aspiration 3, site 7 (smears): Positive for malignant cells consistent with small cell carcinoma of lung origin. D. EBUS, aspiration 4, site 7 (smears): Positive for malignant cells consistent with small cell carcinoma of lung origin. E. Transbronchial needle aspiration, EBUS, site 7 (cytospin and cell block): Positive for malignant cells consistent with small cell carcinoma of lung origin. F. Transbronchial needle aspiration, EBUS, site 7 (cytospin and cell block): Positive for malignant cells consistent with small cell carcinoma. See comment. G. Lung washings (cytospin and cell block): Negative for malignant cells. Scattered bacterial colonies present. AM:terra 05/04/19 COMMENT The specimen is evaluated at the time of procedure by Dr. Post. Immediate evaluation: A. EBUS, aspiration 1, site 4R: Blood and macrophages. Reported at 1:09 p.m. B. EBUS, aspiration 2, site 4R: Blood and respiratory epithelial cells. Reported at 1:14 p.m. C. EBUS, aspiration 3, site 7: Positive for malignant cells suspicious for small cell carcinoma. Reported at 1:27 p.m. D. EBUS, aspiration 4, site 7: Positive for malignant cells suspicious for small cell carcinoma. Reported at 1:29 p.m. F. Immunohistochemistry ([id number]) supports the above diagnosis. Case has been reviewed in consultation with Dr. Alvarenga who concurs with the above diagnosis. IDC:SJ CYTOLOGY STUDY Slides are reviewed. CYTOLOGY GROSS A - Received labeled with the patient's name and , and designated EBUS, aspiration 1, site 4R. The specimen consists of two smears that are submitted for immediate cytologic evaluation (wet read). B - Received labeled with the patient's name and , and designated EBUS, aspiration 2, site 4R. The specimen consists of two smears that are submitted for immediate cytologic evaluation (wet read). C - Received labeled with the patient's name and , and designated EBUS, aspiration 3, site 7. The specimen consists of two smears that are submitted for immediate cytologic evaluation (wet read). D - Received labeled with the patient's name and , and designated EBUS, aspiration 4, site 7. The specimen consists of two smears that are submitted for immediate cytologic evaluation (wet read). E - Received labeled with the patient's name and , and designated TBNA, site 7. The specimen consists of two smears and cell block. F - Received labeled with the patient's name and , and designated TBNR, site 7. The specimen consists of two smears and cell block. G - Received is 20 ml of red cloudy fluid labeled with the patient's name and and designated per the requisition as washing. Submitted for cytology preparation including cell block. / AM:terra 04/29/19 TC:0 CPT: 02801 x2, 92150 x4, 81610 x2, 67937 x3
--- NOTE | 2019-04-29 12:09 | PCM.HP.STD ---
Problem List (1) Lung mass Status: Acute (2) 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 classification Status: Chronic Comment: 76% predicted (3) Marijuana abuse Status: Chronic (4) Tobacco abuse Status: Chronic (5) Lung nodule Status: Chronic (6) Edema Status: Chronic (7) ALEX (obstructive sleep apnea) Status: Chronic Comment: CPAP 10 cm of water (8) Asthma, moderate persistent Status: Chronic Qualifiers: (9) HTN (hypertension) Status: Chronic Qualifiers: (10) Persistent atrial fibrillation Status: Chronic (11) Diabetes mellitus Status: Chronic (12) Hyperlipidemia Status: Chronic Qualifiers: History of Present Illness Date of Admission: 04/29/19 Chief Complaint: Bronchoscopy The patient is a 53 year old M, with past medical history listed below and well-known to me from the outpatient office, who presents today for bronchoscopy secondary to lung mass and mediastinal lymphadenopathy. Patient is on Brio and Spiriva at baseline. Patient also takes Xarelto therapy on a daily basis secondary to A. fib. CT scan of the chest was completed on March 09, 2019 showing a masslike consolidation of the right upper lobe, pleural effusion and mediastinal lymphadenopathy. After review in the outpatient setting, it was determined patient would benefit from an endobronchial ultrasound bronchoscopy. Patient has not used his inhalers today. Past Medical History Past Medical History (Chronic Problems): Chronic Problems (Last Reviewed 04/15/19 @ 14:45 by Betsy Junior) 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 classification (Chronic) 76% predicted Marijuana abuse (Chronic) Tobacco abuse (Chronic) Lung nodule (Chronic) Edema (Chronic) ALEX (obstructive sleep apnea) (Chronic) CPAP 10 cm of water Asthma, moderate persistent (Chronic) HTN (hypertension) (Chronic) Nicotine abuse (Chronic) Persistent atrial fibrillation (Chronic) Diabetes mellitus (Chronic) Hyperlipidemia (Chronic) Medical History: Medical History (Last Reviewed 04/15/19 @ 14:45 by Betsy Junior) Marijuana abuse (Chronic) F12.10 Tobacco abuse (Chronic) Z72.0 Lung nodule (Chronic) R91.1 Edema (Chronic) R60.9 ALEX (obstructive sleep apnea) (Chronic) G47.33 CPAP 10 cm of water Asthma, moderate persistent (Chronic) J45.40 HTN (hypertension) (Chronic) I10 Persistent atrial fibrillation (Chronic) I48.1 Diabetes mellitus (Chronic) E11.9 Hyperlipidemia (Chronic) E78.5 Allergies pioglitazone HCl [From Netlist] Adverse Reaction (Verified 04/26/19 12:04) Other Home Medications: Ambulatory Orders Medication Instructions Recorded Fluoxetine [Prozac] 60 mg PO DAILY 02/05/15 Metoprolol(XL)Succ [Toprol Xl 50 mg PO DINNER 02/05/15 (Beta Eufemia)] Fluticasone 0.05% [Flonase Nasal 2 spray NASAL DAILY PRN PRN 04/11/16 [place]] Furosemide [Lasix] 40 mg PO DAILY 04/11/16 Pravastatin [Pravachol] 40 mg PO DINNER 04/11/16 rivaroxaban 20 mg tablet 20 mg PO QDAY #30 tab 01/18/18 fluticasone furoate 200 1 inh INHALATION QDAY #60 ea 09/17/18 mcg-vilanterol 25 mcg/dose inhalation powder tiotropium bromide 2.5 2 puff INHALATION DAILY #4 g 10/18/18 mcg/actuation mist for inhalation losartan 50 mg tablet 50 mg PO BID #180 tab 12/17/18 Amlodipine [Norvasc] 10 mg PO DAILY #30 tab 02/28/19 Loperamide [Imodium] 4 mg PO Q6H PRN PRN #10 cap 02/28/19 doxazosin 2 mg tablet 2 mg PO DAILY tab 03/01/19 albuterol sulfate 90 mcg/actuation 2 inh INHALATION Q4H PRN PRN #1 ea 04/13/19 breath activated powder inhaler Surgical History: Surgical History (Last Reviewed 04/15/19 @ 14:45 by Betsy Junior) History of stomach ulcers Z87.19 cauterization History of tonsillectomy (Resolved) Z98.890, Z90.89 Pilonidal cyst (Resolved) Onset Date: ~1986 L05.91 Surgical History: tonsillectomy Psychiatric History: No pertinent psych hx Smoking Status: Light Smoker (<10/day) Tobacco Use: Cigarettes Review of Systems Comment: See HPI, otherwise negative x10 systems VTE Information - Inpt Only VTE Present on Admission: No VTE Mechan Device Prophylaxis: SCD's VTE Pharm Prophylaxis ordered?: No Reason prophylaxis not ordered:: Treatment Not Indicated Objective: Ct reviewed just prior to the procedure. 4R and 7 are areas of concern - Physical Exam General: Alert, Oriented x3, Cooperative, No apparent distress, Well developed, Well nourished HEENT: Atraumatic, PERRLA, EOMI, Normocephalic Oral: Moist Mucosa, No Gingival or Mucosal Lesions/ Ulcerations, - - Fair dentition. M3 Neck: Supple, No JVD, No Nodes, Trachea Midline Lungs: No rhonchi, No wheeze, No rales, Diminished Cardiovascular: Normal S1, Normal S2, No murmurs, Irregular Rate, No rub noted, No Gallop Abdomen: Bowel Sounds Present, Soft, Non Tender, Non-Distended, No Hepato-splenomegaly, Obese Extremities: No clubbing, No cyanosis, No edema Skin: No rashes, No breakdown Musculoskeletal: No Tenderness to Palpation of Joints or Extremities Lymphatic: No Cervical, Supraclavicular, or Inguinal Adenopathy Neurological: Cranial nerves II-XII grossly intact, Neuro grossly intact, Motor Exam 5/5 strength throughout Psych/Mental Status: Alert and oriented to time, place, person, mood and affect Vital Signs Temp Pulse Resp BP Pulse Ox 36.6 C 73 16 125/81 H 95 04/29/19 11:55 04/29/19 11:55 04/29/19 11:55 04/29/19 11:55 04/29/19 11:55 Oxygen Delivery Method Room Air Weight: 131.4 kg Body Mass Index (BMI) 35.2 Laboratory Tests 04/29/19 04/28/19 04/28/19 Range/Units 12:04 10:12 10:12 Plt Count 262 (150-450) K/mm3 PT 15.3 H (11.7-14.9) SECONDS INR 1.2 APTT 34.8 (24.1-36.2) Seconds POC Glucose 100 (70-110) mg/dL Assessment/Plan All Active Problems (Last Reviewed 04/15/19 @ 14:45 by Betsy Junior) Lung mass (Acute) History of tonsillectomy (Resolved) Pilonidal cyst (Resolved ~1986) RECOMMENDATIONS: 1. Proceed with endobronchial ultrasound 2. Await outcome of SANTOSH evaluation 3. Further instructions following the procedure IMPRESSIONS: 1. Lung mass with mediastinal adenopathy We will proceed with operative procedure as previously planned. Patient will receive general anesthesia per anesthesia. All questions were answered prior to the procedure. Sisters at bedside also.
[2019-04-29 12:15] LABS: Bedside Glucose 100 mg/dL (70-110)
--- NOTE | 2019-04-29 14:18 | OP.ENDO_ITS ---
Patient Name: Syd Cantu Procedure Date: 04/29/2019 12:12 PM Date of : 1965 Age: 53 Procedure: Bronchoscopy Indications: Atelectasis of the right upper lobe, Hilar lymphadenopathy of the right side, Mediastinal adenopathy, Lung mass, Abnormal CT scan of chest, Hemoptysis with abnormal CXR, Shortness of breath Providers: Pee Castillo MD Referring MD: Pee Castillo MD Medicines: General Anesthesia Complications: No immediate complications Procedure: Pre-Anesthesia Assessment: - A History and Physical has been performed. The patient's medications, allergies and sensitivities have been reviewed. - The risks and benefits of the procedure and the sedation options and risks were discussed with the patient. All questions were answered and informed consent was obtained. - Patient identification and proposed procedure were verified prior to the procedure by the physician, the nurse and the anesthesiologist. The procedure was verified in the procedure room. - The anesthesia plan was to use monitored anesthesia care (MAC). After I obtained informed consent, the scope was passed under direct vision. Throughout the procedure, the patient's blood pressure, pulse, and oxygen saturations were monitored continuously. The ultrasound bronchoscope was introduced through the mouth, via laryngeal mask airway and advanced to the tracheobronchial tree of both lungs. The procedure was unusually difficult due to the presence of excessive secretions, the patient's respiratory instability (hypoxia) and the patient's body habitus. Successful completion of the procedure was aided by increasing supplemental oxygen and receiving assistance from Anesthesiology. Findings: The laryngeal mask airway is in good position. The vocal cords appear normal. The subglottic space is normal. The trachea is of normal caliber. The scott is sharp. The tracheobronchial tree of the left lung was examined to at least the first subsegmental level. Bronchial mucosa and anatomy are normal; there are no endobronchial lesions, and no secretions. Right Lung Abnormalities: Notable, mucoid, tenacious, white secretions were found throughout the right tracheobronchial tree. They were not obstructing the airway. Extrinsic compression was found in the bronchus intermedius, in the anterior segment of the right upper lobe (B3), in the right middle lobe and in the right lower lobe. The airway lumen is about 50% occluded. The lesion was successfully traversed. Transbronchial needle aspiration of a mass was performed in the right paratracheal area and in the subcarinal area using an Olympus EBUS-TBNA 19 gauge needle and sent for cell count and differential and routine cytology. The procedure was guided by ultrasound. 4 samples (2 from 4R and 2 from 7) were obtained. Stage N2. Suctioning was performed and the airway was cleared. Rapid On-Site Evaluation (SANTOSH): Preliminary cytology of the lesions in the right paratracheal area and in the subcarinal area was suggestive of small cell carcinoma (final results are pending). Impression: - Atelectasis of the right upper lobe - Hilar lymphadenopathy of the right side - Mediastinal adenopathy - Lung mass - Abnormal CT scan of chest - Hemoptysis with abnormal CXR - Shortness of breath - The airway examination of the left lung was normal. - Notable, mucoid, tenacious, white secretions were found throughout the tracheobronchial tree. - Extrinsic compression was found in the bronchus intermedius, in the anterior segment of the right upper lobe (B3), in the right middle lobe and in the right lower lobe likely secondary to a mass. - A transbronchial needle aspiration was performed. - Rapid On-Site Evaluation (SANTOSH): Preliminary cytology of the lesion in the right paratracheal area and in the subcarinal area was suggestive of small cell carcinoma (final results are pending). - The findings are suspicious for aspiration of foreign body. - Lung cancer was identified. Recommendation: - The patient will be observed post-procedure, until all discharge criteria are met. - Await cytology and washing results. - Patient has a contact number available for emergencies. The signs and symptoms of potential delayed complications were discussed with the patient. Return to normal activities tomorrow. Written discharge instructions were provided to the patient. Procedure Code(s): --- Professional --- 79338, Bronchoscopy, rigid or flexible, including fluoroscopic guidance, when performed; with transbronchial needle aspiration biopsy(s), trachea, main stem and/or lobar bronchus(i) 69743, Bronchoscopy, rigid or flexible, including fluoroscopic guidance, when performed; with transendoscopic endobronchial ultrasound (EBUS) during bronchoscopic diagnostic or therapeutic intervention(s) for peripheral lesion(s) (List separately in addition to code for primary procedure[s]) Diagnosis Code(s): --- Professional --- R59.0, Localized enlarged lymph nodes J98.11, Atelectasis C34.90, Malignant neoplasm of unspecified part of unspecified bronchus or lung R09.89, Other specified symptoms and signs involving the circulatory and respiratory systems CPT copyright 2017 [employer]. All rights reserved. The codes documented in this report are preliminary and upon unix developer review may be revised to meet current compliance requirements. MD Pee Ceron MD 04/29/2019 2:17:58 PM This report has been signed electronically. Number of Addenda: 0 Note Initiated On: 04/29/2019 12:12 PM
[2019-04-29 14:30] LABS: Bedside Glucose 108 mg/dL (70-110)
[2019-04-29 14:45] LABS: Cytology, Washings SEE PATHOLOGY REPORT
[2019-04-29 16:24] LABS: Appearance/Body Fluid TURBID; Color/Body Fluid RED
[2019-04-29 18:30] LABS: White Blood Count/Body Fluid 27 /mm3
[2019-04-29 18:46] LABS: Lymphocytes 3 %; Neutrophil (Segs) 29 %
[2019-04-29 18:47] LABS: Mesothelial Cells 68 %
[2019-04-29 18:48] LABS: Body Fluid QC Type(s) BF1Q,BF2Q
[2019-04-29 18:54] LABS: Source- Body Fluid BRONCHIAL LAVAGE
[2019-05-02 15:08] LABS: Pathologist Comment/Body Fluid Reviewed
== END 2019-04-29 16:13 | disposition home or self-care (01) ==
LOC: EN 11:36 → AC 11:37
PROVIDERS: Nurse Practitioner Acute Care; Referring Provider Internal Medicine Critical Care Medicine; Visit Provider Internal Medicine Critical Care Medicine
PROC: BB4BZZZ Ultrasonography of Pleura (ICD-10-PCS; CPT 31629; principal; 2019-04-29 12:00)
DX: C34.91 Malignant neoplasm of unspecified part of right bronchus or lung (principal); J98.11 Atelectasis; J44.9 Chronic obstructive pulmonary disease, unspecified; J45.40 Moderate persistent asthma, uncomplicated; G47.33 Obstructive sleep apnea (adult) (pediatric); I10 Essential (primary) hypertension; I48.1 Persistent atrial fibrillation; E11.9 Type 2 diabetes mellitus without complications; E78.5 Hyperlipidemia, unspecified; F41.9 Anxiety disorder, unspecified; F32.9 Major depressive disorder, single episode, unspecified; Z87.19 Personal history of other diseases of the digestive system; Z86.2 Personal history of diseases of the blood and blood-forming organs and certain disorders involving the immune mechanism; Z79.01 Long term (current) use of anticoagulants; Z79.899 Other long term (current) drug therapy; F12.10 Cannabis abuse, uncomplicated; F17.210 Nicotine dependence, cigarettes, uncomplicated
CPT/HCPCS: 31629; 31652; 36415; 82962; 85049; 85610; 85730; 88108; 88161; 88305; 88313; 88341; 88342; 89050; J7120; J2405

== ENCOUNTER → 2019-05-21 | Outpatient (CLI) | payer MEDICAID, SELFPAY ==
[2019-05-05 14:44] VITALS: BMI 35.3
[2019-05-21 08:18] LABS: Creatinine, Serum 0.94 mg/dL (0.70-1.30); EST Glomerular Filtration Rate 88 mL/min (>60); Est Glom Filt Rate - Afr Amer 107 mL/min (>60)
== END | disposition home or self-care (01) ==
LOC: LAB 07:51
PROVIDERS: Referring Provider Nurse Practitioner Acute Care; Visit Provider Nurse Practitioner Acute Care
DX: C34.90 Malignant neoplasm of unspecified part of unspecified bronchus or lung (principal)
CPT/HCPCS: 36415; 82565

== ENCOUNTER → 2019-05-23 | Outpatient (CLI) | payer MEDICAID, SELFPAY ==
[2019-05-05 14:44] VITALS: BMI 35.3
--- NOTE | 2019-05-23 09:45 | PET_ITS ---
EXAMINATION: FDG PET CT INDICATIONS: A 53-year-old male with reported history of primary lung carcinoma presenting for initial staging examination. COMPARISON EXAMINATION: CT of the chest report dated 04/08/19. INDEX LESION SIZE SUV INTERPRETATION Mediastinal structures, right thoracic perihilum 60.5 mm x 31.3 mm largest (frame 217) 8.9 (max) Fulfills quantitative criteria for viable neoplasm Right supraclavicular region, right anterior neck 32.5 mm largest (frame 263) 7.1 (max) Fulfills quantitative criteria for viable neoplasm Right upper-mid posterior lung field heterogeneous 6.1 cm (frame 238) 2.8 May necessitate histopathologic investigation Distal rectal vault nodular 41.3 mm (frame 49) 9.7 Warrants further evaluation-digital examination NON-INDEX LESION SIZE SUV INTERPRETATION Left lateral neck level II B 1.9 Quantitative criteria for viable neoplasm are not fulfilled TECHNIQUE: Following the intravenous administration of 15.27 mCi of F-18 deoxyglucose via the right antecubital fossa, multiplanar image acquisitions of the neck, chest, abdomen and pelvis to level of mid thigh, obtained at one hour post radiopharmaceutical administration contemporaneously interpreted with the current CT of the neck, chest, abdomen and pelvis to level of mid thigh, dated 05/23/[address] of the chest report dated 04/08/19 reveal: SERUM GLUCOSE LEVEL: 93 mg/dl. HEIGHT: 76 inches. WEIGHT: 286 lbs. FINDINGS: 1. Increased glucose metabolism is defined in the right upper-mid hemithorax pulmonary parenchyma, heterogeneous in presentation. The calculated maximum standard uptake value is 2.8. The maximal axial diameter of the largest conglomerate density on review of CT of the chest dated 05/23/19 is 6.1 cm (AP). 2. Facilitated FDG concentration is noted in the superior, subcarinal mediastinum and right thoracic perihilar region generating a calculated maximum standard uptake value of 8.9. The maximal axial diameter of the largest metabolic, morphologic abnormality on review of CT of the chest dated 05/23/19 is 60.5 mm (transverse) x 31.3 mm (AP). 3. Enhanced fluorine-labeled glucose uptake is demonstrated in the right supraclavicular region, right paramedian anterior neck involving level VII generating a calculated maximum standard uptake value of 7.1. The maximal axial diameter of the largest individual hypermetabolic soft tissue density on review of CT of the chest dated 05/23/19 is 32.5 mm (transverse). 4. An intense focus of increased FDG concentration is noted in the lower midline perineum contiguous to the distal rectal vault, nodular in presentation generating a calculated maximum standard uptake value of 9.7. The maximal axial diameter of the corresponding metabolic abnormality on review of CT of the pelvis dated 05/23/19 is 41.3 mm (AP). 5. Subtle increased glucose concentration is observed in the left lateral neck involving level II B with a calculated standard uptake value of 1.9. The corresponding soft tissue density demonstrates fatty hilus formation on review of the neck dated 05/23/19. 6. Normal physiologic distribution of the radiopharmaceutical is apparent in the hepatic (2.7) and splenic parenchyma, both renal units, bladder and visualized intestinal tract. There is uniform distribution of the radiopharmaceutical concentration defined in the visualized cerebellar hemispheres and cerebral cortical structures.? Prominent glucose metabolism is defined in the pharyngeal mucosal space, tongue base without evidence of soft tissue thickening most consistent with physiologic distribution of the radiopharmaceutical. Pertinent CT findings are as follows. CHEST: Atherosclerotic calcification is defined in the thoracic aorta without evidence of dilatation, aneurysm formation. Subtle coronary arterial calcification is observed. A right hemithorax pleural effusion is defined without evidence of quantitatively significant enhanced FDG uptake. Bilateral axillary soft tissue densities are ametabolic. ABDOMEN AND PELVIS: Atherosclerotic calcification is defined in the abdominal aorta without evidence of dilatation, aneurysm formation. Abdominal-pelvic arterial calcification is observed. Right-left inguinal subcentimeter soft tissue densities with fatty hilus formation are non-glucose avid. SKELETAL: Degenerative changes defined in the cervical, thoracic and lumbar spine demonstrate no evidence for glucose hypermetabolism. PET/PET/CT Tumor Base -Thigh Init IMPRESSION: 1. ABNORMAL EXAMINATION INDICATIVE OF MALIGNANT-VIABLE NEOPLASM. 2. Increased glucose concentration identified in the superior-subcarinal mediastinum and right thoracic perihilum fulfills quantitative criteria for malignant transformation. (Norma et al, Journal of Clinical Oncology 16:2142, 1998). 3. Viable neoplastic transformation appears evident in the right supraclavicular region and right anterior neck. 4. Facilitated uptake visualized in the right upper-mid posterior lung field fulfills quantitative criteria for viable neoplasm with single-point technique. 5. The increase in fluorine-labeled glucose uptake noted in the distal rectal vault may be further investigated with digital examination secondary to the quantitative degree of uptake. (Cally et al, Journal of Nuclear Medicine, 30:W418, 2003). 6. Mild facilitated tracer concentration noted in the left lateral neck associated with soft tissue with fatty hilus formation does not fulfill quantitative criteria for viable neoplasm. Electronic Signature Pb Zamarripa D.O. Electronically Signed: Pb Zamarripa DO at 10:51 EDT Tel , Service support ,
== END | disposition home or self-care (01) ==
PROVIDERS: Family Provider Nurse Practitioner Family; PCP Nurse Practitioner Family; Referring Provider Nurse Practitioner Acute Care; Visit Provider Nurse Practitioner Acute Care
DX: C34.90 Malignant neoplasm of unspecified part of unspecified bronchus or lung (principal)
CPT/HCPCS: 78815; A9552

== ENCOUNTER → 2019-05-24 | Outpatient (CLI) | payer MEDICAID, SELFPAY ==
[2019-05-05 14:44] VITALS: BMI 35.3
--- NOTE | 2019-05-24 06:28 | MRI_ITS ---
STUDY: MRI BRAIN WITH AND WITHOUT CONTRAST REASON FOR EXAM: Male, 53 years old. small cell lung ca staging, headaches. TECHNIQUE: Standardized multiplanar fat and water weighted pulse sequences were obtained. 25 IV Dotarem was administered for the contrast portion of the examination. COMPARISON: None. FINDINGS: Normal size of the ventricles and extra-axial spaces for the patient's age. Normal white matter tracts of the supratentorial brain. Normal bilateral basal ganglia. Normal thalami. There is no extra-axial fluid accumulation. Normal flow voids within the major intracranial circulation suggesting patency by spin echo criteria. Normal venous enhancement. There is no enhancing intra-axial or extra-axial abnormality. Normal sella turcica, pituitary gland, infundibular stalk, optic chiasm and hypothalamus. Normal tectal plate and pineal gland. Normal midbrain, yuliana and medulla. Normal cerebellum. Normal basal cisterns. MRI/Brain W/WO Contrast IMPRESSION: No evidence of intracranial metastatic disease. Electronically Signed: Wesley Bansal MD at 9:05 EDT Tel , Service support ,
== END | disposition home or self-care (01) ==
LOC: MRI 06:27
PROVIDERS: Referring Provider Nurse Practitioner Acute Care; Visit Provider Nurse Practitioner Acute Care
DX: C34.90 Malignant neoplasm of unspecified part of unspecified bronchus or lung (principal)
CPT/HCPCS: 70553; A9575

== ENCOUNTER → 2019-06-07 | Outpatient (CLI) | payer MEDICAID, SELFPAY ==
[2019-05-30 13:43] VITALS: BMI 34.2
[2019-06-01 10:36] VITALS: BMI 34.1
--- NOTE | 2019-06-07 | FLU_PTH ---
PATIENT: RONALDO ADAM LOC: [facility]#:[id number] AGE/SX: 53/M ROOM: RE06/07/[address]: Dr. Cristiana Johnson MD : [id number] BED: DIS: 06/07/2019 SPEC #: [id number] RECD: 06/08/19 14:13 STATUS: WALE KODI #: [id number] WILFREDO: 06/07/19 00:[address]: Cristiana Johnson DEPT: CYTOLOGY RECD BY: Joselito Ling ENTERED: 06/08/19 14:13 SP TYPE: Fluid OTHR DR: Galina Darden, LAUNDRY AGENT-C [facility] Tissues: THORACIC FLUID Procedures: Special Stain Group II Surgery Specimen Level IV Cytospin Fluid HEADER OPERATION: Ultrasound-guided thoracentesis PRE-OP DIAGNOSIS: Right pleural effusion TISSUE SUBMITTED: Thoracentesis fluid for cytology DIAGNOSIS CYTOLOGY Thoracentesis fluid for cytology (cytospin and cell block): Negative for malignant cells. See cytology study and comment. SJ:rg 06/09/19 COMMENT Please make reference to previous specimen ([id number]) EBUS, aspiration site 7 with diagnosis of small cell carcinoma of lung origin. Case has been reviewed in consultation with Dr. Post who concurs with the above diagnosis. IDC:AM CYTOLOGY STUDY Slides are reviewed. The specimen consists of mesothelial cells, macrophages and inflammatory cells including numerous small lymphocytes. The findings are consistent with lymphocytic effusion. CYTOLOGY GROSS Received is 120 ml of yellow cloudy fluid labeled with the patient's name and and designated per the requisition as thoracentesis. Submitted for cytology preparation including cell block. / 06/08/19 TC:5 CPT: 95942, 98912
[2019-06-07 10:59] VITALS: BMI 33.7
--- NOTE | 2019-06-07 12:27 | US_ITS ---
PROCEDURE: ULTRASOUND GUIDED THORACENTESIS. DATE: June 07, 2019.. INDICATION: Male, 53 years old. Right pleural effusion. PHYSICIAN: Melquiades Stallings M.D. PROCEDURE: The risks, benefits, and alternatives to the procedure were explained to the patient. The specific risks of bleeding, infection, and pneumothorax requiring chest tube insertion were discussed and accepted. Written informed consent was obtained. Ultrasonographic evaluation of the right lower pleural space was carried out. An adequate pocket was identified. The patient was placed in the sitting, upright position. The overlying skin was prepped and draped in sterile fashion. 1% lidocaine was administered subcutaneously for local anesthesia. Under ultrasound guidance, a 5 Lao thoracentesis needle/catheter system was advanced into the right posterior lower pleural fluid collection. Approximately 2220 mL of linda-colored fluid was drained. The catheter was removed, and a sterile dressing was applied. A specimen was collected and sent to the laboratory for analysis, as requested by the referring clinician. The patient tolerated the procedure well. A chest x-ray was ordered. US/Thoracentesis W US IMPRESSION: Ultrasound-guided right thoracentesis. Electronically Signed: Melquiades Stallings, at 15:55 EDT , Service support ,
[2019-06-07 13:43] VITALS: BP 117/76; BP 126/71; BP 129/61; PULSE 62; PULSE 76; PULSE 78; RESP 18; O2SAT 96; O2SAT 97; O2SAT 98
--- NOTE | 2019-06-07 13:59 | RAD_ITS ---
STUDY: X-RAY CHEST REASON FOR EXAM: Male, 53 years old. Status post right thoracentesis. TECHNIQUE: AP inspiration and expiration views. COMPARISON: Comparison is made with prior study dated February 26, 2019. FINDINGS: The patient is status post right thoracentesis. There is no evidence of pneumothorax. Residual patchy right upper lobe infiltrates.. RAD/Chest Insp/Exp 2 View IMPRESSION: Status post right thoracentesis. There is no evidence of pneumothorax. Electronically Signed: Melquiades Stallings, at 15:41 EDT , Service support ,
[2019-06-07 14:12] LABS: Cytology, Body Fluid / CSF SEE PATHOLOGY REPORT
== END | disposition home or self-care (01) ==
LOC: US 12:25
PROVIDERS: Referring Provider Internal Medicine Hematology & Oncology; Visit Provider Internal Medicine Hematology & Oncology
DX: J90 Pleural effusion, not elsewhere classified (principal)
CPT/HCPCS: 32555; 36415; 71046; 85025; 85610; 85730; 87070; 87075; 87205; 88108; 88305; 88313

== ENCOUNTER 2019-06-13 11:58 | Day surgery (SDC) | payer MEDICAID, SELFPAY ==
--- NOTE | 2019-05-31 01:20 | HP_ITS ---
Intake Vital Signs 05/31/19 Body Mass Index (BMI) 34.2 05/31/19 Height 6 ft 5 in 05/31/19 Weight: 281 lb 05/31/19 Body Mass Index (BMI) 33.3 05/31/19 Blood Pressure 113/68 05/31/19 Blood Pressure Location Lt brachial 05/31/19 Blood Pressure Position Sitting 05/31/19 Respiratory Rate 16 Intake Visit Reasons: Port Placement Consult Chief Complaint: Lung cancer, new diagnosis Lime Mixer Required: No Is patient in pain?: No Allergies pioglitazone HCl [From [employer]] Adverse Reaction (Severe, Verified 05/31/19 13:03) Other Medications Fluoxetine [Prozac] 60 mg PO DAILY 02/05/15 [History Confirmed 05/31/19] Metoprolol(XL)Succ [Toprol Xl (Beta Eufemia)] 50 mg PO DINNER 02/05/15 [History Confirmed 05/31/19] Fluticasone 0.05% [Flonase Nasal [place]] 2 spray NASAL DAILY PRN PRN 04/11/16 [History Confirmed 05/31/19] Furosemide [Lasix] 40 mg PO DAILY 04/11/16 [History Confirmed 05/31/19] Pravastatin [Pravachol] 40 mg PO DINNER 04/11/16 [History Confirmed 05/31/19] rivaroxaban 20 mg tablet 20 mg PO QDAY #30 tab 01/18/18 [Rx Confirmed 05/31/19] tiotropium bromide 2.5 mcg/actuation mist for inhalation 2 puff INHALATION DAILY #4 g 10/18/18 [Rx Confirmed 05/31/19] losartan 50 mg tablet 50 mg PO BID #180 tab 12/17/18 [Rx Confirmed 05/31/19] Amlodipine [Norvasc] 10 mg PO DAILY #30 tab 02/28/19 [Rx Confirmed 05/31/19] Loperamide [Imodium] 4 mg PO Q6H PRN PRN #10 cap 02/28/19 [Rx Confirmed 05/31/19] doxazosin 2 mg tablet 2 mg PO DAILY tab 03/01/19 [History Confirmed 05/31/19] albuterol sulfate 90 mcg/actuation breath activated powder inhaler 2 inh INHALATION Q4H PRN PRN #1 ea 04/13/19 [Rx Confirmed 05/31/19] fluconazole 100 mg tablet 100 mg PO QDAY #7 tab 05/05/19 [Rx Confirmed 05/31/19] fluticasone furoate 200 mcg-vilanterol 25 mcg/dose inhalation powder 1 inh INHALATION QDAY #60 ea 05/09/19 [Rx Confirmed 05/31/19] [facility] Medical History Marijuana abuse (Chronic) Tobacco abuse (Chronic) Edema (Chronic) ALEX (obstructive sleep apnea) (Chronic) Asthma, moderate persistent (Chronic) HTN (hypertension) (Chronic) Persistent atrial fibrillation (Chronic) Diabetes mellitus (Chronic) Hyperlipidemia (Chronic) Surgical History History of stomach ulcers (Resolved) History of tonsillectomy (Resolved) Pilonidal cyst (Resolved ~1986) Family History Father CAD (coronary artery disease) Hx CABG Hypertension CVA (cerebral vascular accident) Family history of hyperlipidemia Family history of hypertension Mother , Age 55 Sudden cardiac Family history of hypertension Sister Family history of hyperlipidemia Family history of hypertension Grandfather CVA (cerebral vascular accident) Grandmother CVA (cerebral vascular accident) Social History (Updated 05/31/19 @ 13:20 by Eric Vance MD) Smoking Status: Current every day smoker quit status: considering quitting alcohol intake: never details: occasional substance use type: marijuana caffeine: Yes Type: carbonated beverages, coffee what type of physical activity do you participate in: none seatbelt use: always do you feel safe at home: Yes HPI HPI HPI: RONALDO ADAM, is a 53 M who presents to the office today for HPI HPI Surgical H&P: Yes HPI: RONALDO ADAM, is a 53 M who presents to the office today for evaluation for port placement. Patient was recently diagnosed with right lung cancer with pleural effusion. Patient was sent for port placement. Patient also was noted to have increased uptake in the distal rectal vault. Patient reports that he is not having any pain with defecation but he has had some black tarry stools. He does not have any distal rectal pain. ROS General General: Yes weight change and fatigue Musc Musculoskeletal: Yes back problems Cardio Cardiovascular: Yes atrial fibrillation and high blood pressure; no murmur, pacemaker, heart disease, heart attack, heart stent, palpitations, shortness of breat with exertion or chest pain Psych Psychiatric: Yes depression; no anxiety Resp Respiratory: Yes shortness of breath, Yes sleep apnea, No cough, No COPD, No asthma, No emphysema, No wheezing Gastro Gastrointestinal: No abdominal pain, No nausea or vomiting, Yes diarrhea, No constipation, Yes blood in stool, No acid reflux, Yes hemorrhoids, No ulcers, No gallbladder problem, Yes black,tarry stools Cornel Hematologic: Yes blood thinners Exam Const General: cooperative Orientation: alert, oriented x3 Resp Effort & Inspection: normal respiratory effort Auscultation: diminished lung sounds on the right Cardio Rate: regular rate Rhythm: regular rhythm Heart Sounds: no murmurs GI Inspection: non-distended Palpation: soft, nontender Rectal Exam: visual inspection normal, normal sphincter tone, No lesions, No mass Assessment & Plan Problems 1. Small cell lung cancer, right upper lobe C34.11 2. Encounter for insertion of venous access port Z45.2 Plan The patient has a lung mass and needs port access for chemotherapy. I will place a left chest port. I discussed chest port placement with the patient in detail. I discussed the risks including but not limited to bleeding, infection, pneumothorax, DVT. Patient understands the risks and is willing to proceed. I have asked the patient to hold his Xarelto for 2 days prior to the procedure. The patient had uptake in the distal rectal vault on PET scan. On digital rectal exam I did not feel any masses or note any lesions. After reviewing the PET scan I am concerned for possible ability that this is prostate. I will order a PSA. If the PSA is significantly elevated I will refer him to urology. If the PSA is normal I will perform a flex sig at the same time as port placement to check the distal rectal vault. Patient had full colonoscopy 2 to 3 years ago which was normal. Eric Vance MD Pager: [facility] [address] [place] [address], [address] [place] [address] Office: Orders Orders: PSA,Total- Diagnostic Today Z12.5 Coding Level of Care Code Off vis,new,level 3 Diagnoses Small cell lung cancer, right upper lobe C34.11 Encounter for insertion of venous access port Z45.2 05/31/19 1320 <Electronically signed by Eric garcia MD> Date _ Eric Vance MD I have re-examined the patient. There are no clinical changes since date of exam.
[2019-06-01 10:36] VITALS: BMI 34.1
[2019-06-07 10:59] VITALS: BMI 33.7
[2019-06-13] VITALS (7 sets, daily range): BP systolic 107–144; BP diastolic 62–93; PULSE 68–88; RESP 16–18; TEMP 36.2–36.3; O2SAT 89–97; BMI 33.5
[2019-06-13 13:20] LABS: Bedside Glucose 99 mg/dL (70-110)
[2019-06-13] MEDS: Cefazolin 2 GM in 0.9% Normal Saline 100 ML IV (14:10)
[2019-06-13] MEDS: Bupiv/Epi 0.5% Mpf 30 ML Vial (14:47)
--- NOTE | 2019-06-13 15:04 | RAD_ITS ---
STUDY: X-RAY CHEST REASON FOR EXAM: Male, 53 years old. Line placement TECHNIQUE: Frontal view of the chest COMPARISON: 06/07/2019 FINDINGS: There is a left-sided port with its tip in the superior vena cava. There is no pneumothorax. There is stable patchy opacity in the right mid to upper lung field. The left lung is clear. There is stable scarring in the right apex. The heart is normal in size. The visualized osseous structures are within normal limits. RAD/CXR for Line Placement IMPRESSION: Left-sided port with its tip in the superior vena cava. No pneumothorax. Electronically Signed: Jozef Oswald, at 16:14 EDT Tel , Service support ,
--- NOTE | 2019-06-13 15:15 | OP.ENDO_ITS ---
06/13/2019 Olga Amor [facility] Re : Flexible Sigmoid[facility] This procedure was performed on Thursday, June 13, 2019. My impressions and recommendations are as follows: Impressions : - The entire examined colon is normal. - No specimens collected. Recommendations : - Continue present medications. - Discharge patient to home (ambulatory). - Continue anticoagulant medication at prior dose. My findings are described in the full procedure note, which is enclosed. If I can be of further assistance, please feel free to contact me at Doctor phone number(s): , Work: . Sincerely, Eric Vance MD 06/13/2019 3:14:41 PM This report has been signed electronically.
--- NOTE | 2019-06-13 15:16 | SUR.OPER ---
OR NURSES & TECHS REMAIN IN ROOM DURING FLEX SIG.
--- NOTE | 2019-06-13 15:36 | PCM.OPRPT ---
Problem List (1) Encounter for adjustment or management of vascular access device Status: Acute (2) Abnormal PET scan of colon Status: Acute (3) Small cell lung cancer, right upper lobe Status: Acute Report of Operation Date of Procedure: 06/13/19 Pre-Operative Diagnosis: 1. Need for vascular access for chemotherapy. 2. Right lung cancer. 3. Abnormal PET scan of anal canal Post-Operative Diagnosis: Need for vascular access. Normal flexible sigmoidoscopy Surgery/Procedure Performed:: 1. Ultrasound and fluoroscopy guided left chest port placement utilizing left IJ. 2. Flexible sigmoidoscopy Description of Procedure: After obtaining informed consent patient was brought back to the operating room MAC anesthesia was induced and the left chest and neck were prepped in normal sterile fashion. Ultrasound was used to evaluate both IJs and the left IJ was selected. Next, using a needle, the left IJ was accessed and a guidewire was passed on into the superior vena cava under fluoroscopy guidance. A small incision was made over the puncture site and the dilator introducer was placed over the guidewire. Next this was capped and the pocket was made for the port. 1% lidocaine with epinephrine was injected in the proposed port site. An incision was made with scalpel. Electrocautery was used to make a pocket under the skin and subcutaneous tissue. Hemostasis was obtained. Next, the catheter was tunneled up to the neck incision site and placed through the introducer. The peel-away introducer was removed and the position of the catheter was confirmed on fluoroscopy. Next, the catheter was trimmed and attached to the port with the locking device. Interrupted 2-0 Vicryl sutures were used to anchor the port to the chest wall and then the port was placed inside the pocket. The pocket was then flushed with saline and the port irrigated with saline. There was good blood return and the port flushed easily. Next, heparin was injected into the port. The skin was closed with subcutaneous interrupted 3-0 Vicryl sutures. A single 3-0 Vicryl sutures placed under the skin at the neck incision site. Steri-Strips were placed as well as op sites. Patient was turned in the left lateral decubitus position and a well-lubricated finger was placed into the anus. The patient did have some rectal bleeding on digital rectal exam but the anal canal is soft with no appreciable masses. Next a well-lubricated scope was placed into the anus and retroflexed. The rectum appeared normal as did the distal rectum and anal canal. There were no hemorrhoids only to skin piles. There were no appreciable masses in the rectum. The scope was straightened and slowly withdrawn through the anal canal. The anal canal appeared normal with no masses or mucosal abnormalities. The external anus was normal as well. Patient tolerated procedure well, was taken to PACU in stable condition. Chest x-ray will be obtained. Grafts/Implants Used: 8 [employer] PowerPort - Admit VTE Documentation VTE Present on Admission: No VTE Mechan Device Prophylaxis: SCD's
== END 2019-06-13 16:37 | disposition home or self-care (01) ==
LOC: SDC 11:59 → AC 12:00
PROVIDERS: Referring Provider Surgery; Visit Provider Surgery
PROC: (CPT 36561; principal; 2019-06-13 13:45)
PROC: 0DJD8ZZ Inspection of Lower Intestinal Tract, Via Natural or Artificial Opening Endoscopic (ICD-10-PCS; CPT 45330; principal; 2019-06-13 13:55)
DX: Z45.2 Encounter for adjustment and management of vascular access device (principal); C34.11 Malignant neoplasm of upper lobe, right bronchus or lung; E11.9 Type 2 diabetes mellitus without complications; F41.9 Anxiety disorder, unspecified; F32.9 Major depressive disorder, single episode, unspecified; I10 Essential (primary) hypertension; J44.9 Chronic obstructive pulmonary disease, unspecified; G47.33 Obstructive sleep apnea (adult) (pediatric); E78.5 Hyperlipidemia, unspecified; Z79.01 Long term (current) use of anticoagulants; Z79.899 Other long term (current) drug therapy; I48.1 Persistent atrial fibrillation; F17.200 Nicotine dependence, unspecified, uncomplicated; R94.8 Abnormal results of function studies of other organs and systems
CPT/HCPCS: 36561; 45330; 71045; 77001; 82962; J7120; C1788

== ENCOUNTER → 2019-07-01 | Outpatient (CLI) | payer MEDICAID, SELFPAY ==
[2019-06-07 10:59] VITALS: BMI 33.7
[2019-06-27 12:08] VITALS: BMI 34.2
--- NOTE | 2019-07-01 07:33 | MRI_ITS ---
STUDY: MR PELVIS WITH T WITHOUT CONTRAST REASON FOR EXAM: Male, 53 years old. Abnormal findings on PET scan. Rectal pain. Bloody stools. PET/CT scan of 05/23/2019 increased radiotracer uptake associated with the distal rectal vault. TECHNIQUE: Standardized fat and water weighted pulse sequences were obtained in all 3 orthogonal planes, pre-and post contrast administration. 25 IV Dotarem was administered for the contrast portion of the examination. COMPARISON: PET/CT 05/23/2019 FINDINGS: Body wall soft tissues and osseous structures within the [id number] exhibit no acute process. Circumferential thickening of wall the urinary bladder is likely associated with detrusor muscle hypertrophy. There is mild prostatomegaly, craniocaudal 4.1 cm, transverse 4.7 cm, anterior-posterior 3.6) meters. No discrete prostate lesion is apparent. The study is not optimized for prostatic evaluation. Normal seminal vesicles. Evaluated portions of small bowel are unremarkable. A few small inguinal lymph nodes are present bilaterally. Small lymph nodes are present in the distal iliac chains bilaterally, just deep to the inguinal rings. There is no perirectal adenopathy. Anorectum: Localizing to the mid rectum, there is an ill-defined nodular focus projecting from the mucosa measuring approximately 18 x 13 x 14 mm. This focus is best observed on sagittal series 7 image 15, coronal oblique series 10 image 9, axial series 9 image 6 on axial postcontrast series 16 image 40 this focus exhibits increased enhancement and aberrant morphology as compared to adjacent normal mucosa. Miller images are saved to the PACS archive. This may merely represent a fold in the gastric mucosa. There is a sharp turn of the rectum at this location. There is no apparent extension of any abnormal process from the wall of the perirectal fat. This focus lies at a depth of approximately 4.4 cm cephalad of the incisure of the puborectalis muscle, and 8 cm proximal to the anal verge. Direct visualization is recommended. There appears to be mild circumferential thickening of wall the intravenous, without masslike features. Of note, the FDG uptake seen on the recent PET scan was confined to the anus, and was circumferential, circular in morphology, conforming to the wall of the anus. Inflammatory features are favored. MRI/Pelvis W/WO Contrast IMPRESSION: Questionable lesion of the mid rectum. Differential considerations include benign fold in the rectal wall, or polypoid neoplasm. Direct visualization is recommended. There is no perirectal lymphadenopathy. There is mild circumferential thickening of the wall of the anus without masslike features which conforms to the morphology of the FDG uptake on recent PET scan. Likely inflammatory. Electronically Signed: Pb De Oliveira MD at 14:30 EDT Tel , Service support ,
== END | disposition home or self-care (01) ==
LOC: MRI 07:31
PROVIDERS: Referring Provider Student in an Organized Health Care Education/Training Program; Visit Provider Student in an Organized Health Care Education/Training Program
DX: K62.89 Other specified diseases of anus and rectum (principal)
CPT/HCPCS: 72197; A9575; A4216

== ENCOUNTER 2019-07-06 10:52 | Outpatient (RCR) | payer MEDICAID, SELFPAY ==
[2019-06-07 10:59] VITALS: BMI 33.7
[2019-06-27 12:08] VITALS: BMI 34.2
== END 2019-07-30 23:59 ==
LOC: NS 10:52
PROVIDERS: Visit Provider Student in an Organized Health Care Education/Training Program
DX: C34.91 Malignant neoplasm of unspecified part of right bronchus or lung (principal); R63.4 Abnormal weight loss

== ENCOUNTER 2019-07-09 08:25 | Inpatient (IN) | payer MEDICAID, SELFPAY ==
[2019-06-07 10:59] VITALS: BMI 33.7
[2019-07-08 12:58] VITALS: BMI 34.7
[2019-07-09] VITALS (24 sets, daily range): BP systolic 127–167; BP diastolic 79–105; PULSE 76–110; RESP 17–27; TEMP 36.7–38.1; O2SAT 89–99; BMI 34.7; BMI 34.1
--- NOTE | 2019-07-09 08:32 | EKG12_ITS ---
Test Reason : CP Blood Pressure : / mmHG Vent. Rate : 095 BPM Atrial Rate : 468 BPM P-R Int : 000 ms QRS Dur : 088 ms QT Int : 328 ms P-R-T Axes : 000 029 131 degrees QTc Int : 412 ms Atrial fibrillation Nonspecific T wave abnormality Abnormal ECG Confirmed by TOMAS BARKLEY, ANDREY ([id number]), assistant film editor FRANSISCA SOLARSE ([id number]) on 07/11/2019 1:41:53 PM Referred By: Dwayne Amezcua Confirmed By:ANDREY MARIN MD
--- NOTE | 2019-07-09 08:40 | RAD_ITS ---
STUDY: X-RAY CHEST REASON FOR EXAM: Male, 53 years old. Chest pain, shortness of breath, history of lung cancer TECHNIQUE: Single AP portable view of the chest. COMPARISON: 06/13/2019 FINDINGS: EKG leads overlie the chest. Stable appearance of a left subclavian port. Chronic interstitial changes in the left lung which is free of superimposed process there is increased opacification the right lung base, a likely combination of atelectasis and effusion. Follow-up recommended to assure complete resolution. There is no demonstrated pleural abnormality. Normal size heart. Normal mediastinum and inge. Normal visualized pulmonary arteries. Normal visualized aortic arch and descending thoracic aorta. There are diffuse degenerative changes of the visualized thoracic spine. Normal visualized ribs, clavicles, and shoulders. There is no demonstrated abnormality of the visualized soft tissue structures of the upper abdomen. RAD/Chest 1 View (Portable) IMPRESSION: Increased opacification in the right lung base compared to the previous study suggests a combination of atelectasis, effusion and perhaps infiltrate, follow-up recommended to assure resolution Electronically Signed: Arnel Chawla MD at 9:17 EDT , Service support ,
--- NOTE | 2019-07-09 08:45 | ED.VIS.GEN ---
History of Present Illness Chief Complaint: Shortness of Breath Detail of Chief Complaint: Chest pain, shortness of breath Informant: Patient, Family Onset: Today Current Severity: Moderate Maximum Severity: Moderate Narrative: Patient has a history of lung cancer and is undergoing radiation and chemotherapy treatments. Patient states he woke at 2:00 this morning with chest pressure and heaviness along with shortness of breath. He does not feel like he is wheezing. He has had mild cough. Pain does not radiate into the neck or abdomen. Past Medical History - Allergies and Home Meds Allergies/Adverse Reactions: Allergies pioglitazone HCl [From [employer]] Adverse Reaction (Severe, Verified 07/04/19 08:58) Other WEIGHT GAIN Primary Care Physician: Olga Wisdom [Primary Care Provider] - Prior records reviewed: Yes Past Medical History: - - Reviewed Surgical History: tonsillectomy Lives: Spouse/ Significant Other Smoking Status: Current every day smoker Review of Systems General: Denies: Chills, Fever Eyes: Denies: Visual changes - bilaterally ENT: Denies: Bilateral ear pain Cardiovascular: Reports: Chest pain Respiratory: Reports: Dyspnea, Cough Gastrointestinal: Denies: Abdominal pain, Vomiting, Diarrhea Genitourinary: Denies: Dysuria Musculoskeletal: Denies: Back pain Skin: Denies: Rash Neurological: Denies: Headache Hematologic: Denies: Easy bruising Allergy: Denies: Uticaria Physical Exam Vital Signs/Narrative: Vital Signs Temp Pulse Resp BP Pulse Ox 07/09/19 08:26 99 F 107 H 24 H 158/79 H 99 Inital Vital Signs reviewed: Yes General: Well nourished, Well developed Head: Normocephalic ENT: Moist mucous membranes Neck: Supple Cardiovascular: Irregular, Tachycardia Respiratory: CTA bilaterally - Tachypneic. Diminished at right lung base. Abdomen: Soft, Nontender Extremities: Nontender, No edema Skin: Normal color Neurological: Alert, Oriented x3 Psychological: Normal affect Diagnostic/Tx/Re-eval Impressions Chest X-Ray 07/09/19 08:40 IMPRESSION: Increased opacification in the right lung base compared to the previous study suggests a combination of atelectasis, effusion and perhaps infiltrate, follow-up recommended to assure resolution Electronically Signed: Arnel Chawla MD at 9:17 EDT , Service support , 07/09/19 08:40 Chest 1 View (Portable) [RAD] Stat Laboratory Results 07/09/19 07/09/19 07/09/19 08:40 08:40 08:40 WBC 16.2 H RBC 4.31 L Hgb 12.8 L Hct 38.9 L MCV 90.3 MCH 29.7 MCHC 32.9 RDW Std Deviation 47.1 H RDW Coeff of Benjamin 14.7 H Plt Count 342 MPV 9.1 Immature Gran % (Auto) 0.800 Neut % (Auto) 96.2 H Lymph % (Auto) 2.2 L [place] % (Auto) 0.7 Eos % (Auto) 0.0 Baso % (Auto) 0.1 Absolute Neuts (auto) 15.6 H Absolute Lymphs (auto) 0.36 L Nucleated RBC % 0 PT 17.4 H INR 1.4 APTT 50.9 H Sodium 137 Potassium 4.1 Chloride 103 Carbon Dioxide 27.0 Anion Gap 7 BUN 12 Creatinine 0.72 Estim Creat Clear Calc 144.00 Est GFR (MDRD) Af Amer 147 Est GFR (MDRD) Non-Af 122 BUN/Creatinine Ratio 16.8 Glucose 128 H Calcium 8.9 Total Bilirubin 0.60 Direct Bilirubin 0.19 AST 10 L ALT 19 Alkaline Phosphatase 56 Troponin I < 0.015 B-Natriuretic Peptide Total Protein 7.3 Albumin 3.4 Globulin 3.9 07/09/19 08:40 WBC RBC Hgb Hct MCV MCH MCHC RDW Std Deviation RDW Coeff of Benjamin Plt Count MPV Immature Gran % (Auto) Neut % (Auto) Lymph % (Auto) [place] % (Auto) Eos % (Auto) Baso % (Auto) Absolute Neuts (auto) Absolute Lymphs (auto) Nucleated RBC % PT INR APTT Sodium Potassium Chloride Carbon Dioxide Anion Gap BUN Creatinine Estim Creat Clear Calc Est GFR (MDRD) Af Amer Est GFR (MDRD) Non-Af BUN/Creatinine Ratio Glucose Calcium Total Bilirubin Direct Bilirubin AST ALT Alkaline Phosphatase Troponin I B-Natriuretic Peptide 280.8 H Total Protein Albumin Globulin - EKG Initial EKG Interpretation: Atrial Fibrillation - A. fib at [address] change. - Medical Decision Making Patient presents with onset of chest heaviness and shortness of breath since 2 AM. He has been undergoing radiation and chemotherapy this past week for lung cancer. He is currently anticoagulated with Xarelto. DuoNeb treatment was attempted. He states this did not help his breathing at all. His O2 sats were here in the high 80s on nasal cannula. He is noted to be mouth breathing. He is currently in a 50% Ventimask and satting 92%. I discussed x-ray results with him. Patient does not feel he can lay down currently for a CT scan. I offered a BiPAP mask to help redistribute fluid but patient is refusing that at this time. Patient will be admitted for further care and treatment. Talk with hospitalist regarding concern for possible aspiration. We will cover him with a dose of Unasyn and Zithromax at this time. Patient does not have significant cough or fever. His white count may be elevated secondary to his recent treatments. This will continue to be monitored on the floor. ED Disposition - Plan for ED Patient: Disposition: Acute Care Hospital [facility] Diagnosis: Dyspnea, Lung cancer, Consolidation of right lower lobe of lung Referrals: Olga Wisdom [Primary Care Provider] -
[2019-07-09 08:54] LABS: Absolute Lymphocyte Count 0.36 X10^3/uL (0.83-4.51); Absolute Neutrophil Count 15.6 X10^3/uL (2.0-7.7); Basophil# 0.02 X10^3/uL; Basophil% 0.1 % (0-1); Hematocrit 38.9 % (40-54); Hemoglobin 12.8 g/dL (13.0-16.5); Lymphocyte # 0.36 X10^3/ul (4.0); Lymphocyte % 2.2 % (19-41); Mean Corp Hgb Conc 32.9 g/dL (32-36); Mean Corpuscular Hgb 29.7 pg (27.0-32.0); Mean Corpuscular Volume 90.3 fL (80-94); Mean Platelet Vol. 9.1 fl (6.2-12.0); Monocyte# 0.12 X10^3/uL; Monocyte% 0.7 % (0-10); NRBC Flagged by Analyzer 0 % (0-5); Neutrophil # 15.57 X10^3/uL (2.7-7.7); Neutrophil % 96.2 % (47-70); POSITIVE DIFFERENTIAL YES; Platelet Count 342 K/mm3 (150-450); RBC Distribution Width CV 14.7 % (11.6-14.6); RBC Distribution Width SD 47.1 fl (35.1-43.9); Red Blood Count 4.31 M/mm3 (4.6-6.2); White Blood Count 16.2 K/mm3 (4.4-11.0)
[2019-07-09 08:59] LABS: Differential Indicated SCAN CRITERIA MET; International Normalized Ratio 1.4; Prothrombin Time (Protime)PT. 17.4 SECONDS (11.7-14.9)
[2019-07-09 09:00] LABS: Partial Thromboplast Time 50.9 Seconds (24.1-36.2)
[2019-07-09] MEDS: Ipratropium/Albuterol Sulfate 3 ML AMPUL.NEB INHALATION ×2 (09:00→19:32)
[2019-07-09 09:11] LABS: AST(SGOT) 10 U/L (15-37); Alanine Aminotransfer ALT/SGPT 19 U/L (16-61); Albumin, Serum 3.4 g/dL (3.2-5.0); Alkaline Phosphatase 56 U/L (45-117); Anion Gap 7 (5-15); BUN 12 mg/dL (7-18); BUN/Creat Ratio 16.8 RATIO (10-20); Bilirubin, Direct 0.19 mg/dL (0.00-0.30); Calcium,Total 8.9 mg/dL (8.5-10.1); Chloride 103 mmol/L (98-107); Creatinine, Serum 0.72 mg/dL (0.70-1.30); EST Glomerular Filtration Rate 122 mL/min (>60); Est Glom Filt Rate - Afr Amer 147 mL/min (>60); Globulin 3.9 g/dL (2.2-4.2); Glucose 128 mg/dL (74-106); Potassium 4.1 mmol/L (3.5-5.1); Protein, Total 7.3 g/dL (6.4-8.2); Sodium Level 137 mmol/L (136-145)
[2019-07-09] MEDS: 0.9% Normal Saline 1,000 ML 150 ML IV (09:20)
[2019-07-09] MEDS: Ondansetron 4 MG/2 ML Vial IV (09:20)
[2019-07-09] MEDS: Morphine 4 MG/ML Syringe IV (09:20)
[2019-07-09 09:23] LABS: BNP,B-Type NATRIURETIC PEPTIDE 280.8 pg/mL (0-100)
--- NOTE | 2019-07-09 12:32 | HP.PCM_ITS ---
Problem List (1) 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 classification Status: Chronic Comment: 76% predicted (2) Small cell lung cancer, right upper lobe Status: Acute (3) Regional lymph node metastasis present Status: Acute (4) Dyspnea Status: Acute (5) Consolidation of right lower lobe of lung Status: Acute (6) ALEX (obstructive sleep apnea) Status: Chronic Comment: CPAP 10 cm of water (7) HTN (hypertension) Status: Chronic Qualifiers: Hypertension type: essential hypertension Qualified Code(s): I10 - Essential (primary) hypertension (8) Persistent atrial fibrillation Status: Chronic (9) Diabetes mellitus Status: Chronic (10) Hyperlipidemia Status: Chronic Qualifiers: Hyperlipidemia type: pure hypercholesterolemia Qualified Code(s): E78.00 - Pure hypercholesterolemia, unspecified; E78.0 - Pure hypercholesterolemia History of Present Illness Date of Admission: 07/09/19 Chief Complaint: Shortness of breath The patient is a 53 year old M with a PMH as below who presents with acute onset shortness of breath and chest pressure. He states that it started around this morning at 2 AM and has slowly gotten worse. He presented to the ER where a chest x-ray was obtained demonstrating a right lower lobe consolidation compared to a chest x-ray obtained on 06/07/2019. He also had an elevated white blood cell count and a fever. He denies any cough, but he did have a pneumonia in his middle lobe in January of this year. BNP in the ER was elevated to 280, however he has an echo in March of this year with a normal EF, however because he is in A. fib there is no diastolic evaluation. He denies any history of orthopnea until today, and does not have any lower extremity swelling. He is also on Xarelto w hich makes PE extremely unlikely. A CT scan could not be done in the ER because of his inability to lie flat. He states that he is started chemotherapy and radiation, he had his first round of chemo this week and has been having 2 rounds of radiation therapy each day this week and he has 2 more weeks of that radiation schedule followed by another round of chemotherapy. Past Medical History Past Medical History (Chronic Problems): Chronic Problems (Last Reviewed 07/04/19 @ 08:58 by Carine Dave) Nicotine abuse (Chronic) 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 classification (Chronic) 76% predicted Marijuana abuse (Chronic) Tobacco abuse (Chronic) Edema (Chronic) ALEX (obstructive sleep apnea) (Chronic) CPAP 10 cm of water Asthma, moderate persistent (Chronic) HTN (hypertension) (Chronic) Persistent atrial fibrillation (Chronic) Diabetes mellitus (Chronic) Hyperlipidemia (Chronic) Medical History: Medical History (Last Reviewed 07/04/19 @ 08:58 by Carine Dave) Marijuana abuse (Chronic) F12.10 Tobacco abuse (Chronic) Z72.0 Edema (Chronic) R60.9 ALEX (obstructive sleep apnea) (Chronic) G47.33 CPAP 10 cm of water Asthma, moderate persistent (Chronic) J45.40 HTN (hypertension) (Chronic) I10 Persistent atrial fibrillation (Chronic) I48.1 Diabetes mellitus (Chronic) E11.9 Hyperlipidemia (Chronic) E78.5 PORT PLACEMENT 05-31-19 Allergies pioglitazone HCl [From [employer]] Adverse Reaction (Severe, Verified 07/04/19 08:58) Other WEIGHT GAIN Home Medications: Ambulatory Orders Medication Instructions Recorded Fluoxetine [Prozac] 60 mg PO DAILY 02/05/15 Metoprolol(XL)Succ [Toprol Xl 50 mg PO DINNER 02/05/15 (Beta Eufemia)] Fluticasone 0.05% [Flonase Nasal 2 spray NASAL DAILY PRN PRN 04/11/16 [place]] Furosemide [Lasix] 40 mg PO DAILY 04/11/16 Pravastatin [Pravachol] 40 mg PO DINNER 04/11/16 rivaroxaban 20 mg tablet 20 mg PO QDAY #30 tab 01/18/18 losartan 50 mg tablet 50 mg PO BID #180 tab 12/17/18 Amlodipine [Norvasc] 10 mg PO DAILY #30 tab 02/28/19 Loperamide [Imodium] 4 mg PO Q6H PRN PRN #10 cap 02/28/19 doxazosin 2 mg tablet 2 mg PO DAILY tab 03/01/19 albuterol sulfate 90 mcg/actuation 2 inh INHALATION Q4H PRN PRN #1 ea 04/13/19 breath activated powder inhaler fluticasone furoate 200 1 inh INHALATION QDAY #60 ea 05/09/19 mcg-vilanterol 25 mcg/dose inhalation powder Lidocaine/Prilocaine 1 applicatio TP DAILY PRN PRN 30 06/01/19 [Lidocaine-Prilocaine Cream] Days #1 tube Ondansetron [Ondansetron Odt] 8 mg PO Q8H PRN PRN 10 Days #30 06/01/19 tab.yohan Prochlorperazine Maleate 10 mg PO Q6H PRN PRN 5 Days #30 tab 06/14/19 tiotropium bromide 2.5 2 puff INHALATION DAILY #4 g 06/24/19 mcg/actuation mist for inhalation Omeprazole 20 mg PO DAILY #30 tablet. 07/05/19 Sucralfate [Carafate] 1 gm PO 4X/DAY #60 tab 07/05/19 Surgical History: Surgical History (Last Reviewed 07/04/19 @ 08:58 by Carine Dave) History of stomach ulcers Z87.19 cauterization History of tonsillectomy (Resolved) Z98.890, Z90.89 Pilonidal cyst (Resolved) Onset Date: ~1986 L05. Surgical History: tonsillectomy Psychiatric History: No pertinent psych hx Lives: Spouse/ Significant Other Smoking Status: Former smoker Review of Systems Constitutional: Reports: Fever, Weakness. Denies: Chills, Weight Change HEENT: Denies: Head Aches, Sinus Congestion, Sinus Drainage Cardiovascular: Reports: Chest Pressure. Denies: Chest Pain, Palpitations Respiratory: Reports: Shortness of Breath. Denies: Cough, Shortness of breath at rest, Sputum production Gastrointestinal: Denies: Abdominal Pain, Nausea, Vomiting Genitourinary: Denies: Dysuria Musculoskeletal: Denies: Joint Pain, Joint Tenderness Skin: Denies: Rash, Wounds Neurological: Denies: Numbness, Tingling, Focal weakness Psychiatric: Denies: Anxiety, Depression Hematologic/ Lymphatic: Denies: Easy Bruising, Easy Bleeding VTE Information - Inpt Only VTE Present on Admission: No Patient Problems: Active and Suspected Problems (Last Reviewed 07/04/19 @ 08:58 by Carine Dave) Rectal pain (Acute) Nocturia (Acute) Dyspnea (Acute) Lung cancer (Acute) Consolidation of right lower lobe of lung (Acute) - Physical Exam General: Alert, Oriented x3, Cooperative, - - Difficulty breathing HEENT: Atraumatic, PERRLA, EOMI, Normocephalic Oral: Dry Mucosa Neck: Supple, No JVD Lungs: Clear to auscultation, Normal air movement, No rhonchi, No wheeze, No rales, - - Breath sounds significantly diminished on the right compared to the left Cardiovascular: Normal S1, Normal S2, No murmurs, Tachycardic, - - Irregular rhythm Abdomen: Soft, Non Tender, Non-Distended, No Hepato-splenomegaly Extremities: No edema, Capillary Refill Less than 3 Seconds Skin: No rashes, No breakdown Neurological: Neuro grossly intact, Sensory exam intact to light touch and pain Psych/Mental Status: Normal Affect, Appropriate Vital Signs Temp Pulse Resp BP Pulse Ox 99.1 F 108 H 26 H 167/105 H 93 07/09/19 11:40 07/09/19 11:40 07/09/19 11:40 07/09/19 11:40 07/09/19 11:40 Oxygen Flow Rate (L/min) 5 Oxygen Delivery Method Nasal Cannula Weight: 280 lb 3.2 oz Body Mass Index (BMI) 34.1 Laboratory Tests Past 24 Hrs 07/09/19 07/09/19 07/09/19 08:40 08:40 08:40 WBC 16.2 H RBC 4.31 L Hgb 12.8 L Hct 38.9 L MCV 90.3 MCH 29.7 MCHC 32.9 RDW Std Deviation 47.1 H RDW Coeff of Benjamin 14.7 H Plt Count 342 MPV 9.1 Immature Gran % (Auto) 0.800 Neut % (Auto) 96.2 H Lymph % (Auto) 2.2 L [place] % (Auto) 0.7 Eos % (Auto) 0.0 Baso % (Auto) 0.1 Absolute Neuts (auto) 15.6 H Absolute Lymphs (auto) 0.36 L Nucleated RBC % 0 PT 17.4 H INR 1.4 APTT 50.9 H Sodium 137 Potassium 4.1 Chloride 103 Carbon Dioxide 27.0 Anion Gap 7 BUN 12 Creatinine 0.72 Estim Creat Clear Calc 144.00 Est GFR (MDRD) Af Amer 147 Est GFR (MDRD) Non-Af 122 BUN/Creatinine Ratio 16.8 Glucose 128 H Lactic Acid Calcium 8.9 Total Bilirubin 0.60 Direct Bilirubin 0.19 AST 10 L ALT 19 Alkaline Phosphatase 56 Troponin I < 0.015 B-Natriuretic Peptide Total Protein 7.3 Albumin 3.4 Globulin 3.9 07/09/19 07/09/19 08:40 11:44 WBC RBC Hgb Hct MCV MCH MCHC RDW Std Deviation RDW Coeff of Benjamin Plt Count MPV Immature Gran % (Auto) Neut % (Auto) Lymph % (Auto) [place] % (Auto) Eos % (Auto) Baso % (Auto) Absolute Neuts (auto) Absolute Lymphs (auto) Nucleated RBC % PT INR APTT Sodium Potassium Chloride Carbon Dioxide Anion Gap BUN Creatinine Estim Creat Clear Calc Est GFR (MDRD) Af Amer Est GFR (MDRD) Non-Af BUN/Creatinine Ratio Glucose Lactic Acid 1.0 Calcium Total Bilirubin Direct Bilirubin AST ALT Alkaline Phosphatase Troponin I B-Natriuretic Peptide 280.8 H Total Protein Albumin Globulin Assessment/Plan All Active Problems (Last Reviewed 07/04/19 @ 08:58 by Carine Dave) Small cell lung cancer, right upper lobe (Acute) Regional lymph node metastasis present (Acute) Pleural effusion, right (Acute) Encounter for education (Acute) Tooth pain (Acute) Encounter for adjustment or management of vascular access device (Acute) Abnormal PET scan of colon (Acute) Rectal pain (Acute) Nocturia (Acute) Dyspnea (Acute) Lung cancer (Acute) Consolidation of right lower lobe of lung (Acute) History of tonsillectomy (Resolved) Pilonidal cyst (Resolved ~1986) 1. Sepsis secondary to RLL community-acquired pneumonia from gram-positive organism/acute hypoxic respiratory failure secondary to RLL pneumonia -We will start on Unasyn and azithromycin, he states that he did have 2 L thoracentesis done about a month ago -We will obtain blood cultures, lactate was 1 -We will try to obtain a sputum culture as well as Legionella and strep urine antigens -He is refusing to wear BiPAP because he does not like her masks or our machines, I have indicated to him that he needs to then have his bring in his CPAP mask, because it his respiratory rate currently he will not be able to remain off of the vent if this continues. 2. Persistent A. fib/HTN/HLD/ALEX -Rates are currently in the low 100s, will discontinue to monitor for now -We can continue his home blood pressure medications, as well as his cholesterol medications -Continue with Xarelto, but will hold the Lasix while receiving IV fluids for his sepsis -His will bring in his CPAP machine 3. Limited stage small cell lung cancer involving the right hilum/continued tobacco use -Once again advised cessation of tobacco especially given that he is being treated for lung cancer which was caused by his tobacco use -He is undergoing chemoradiation currently, he is received his first week of radiation treatments, and he is received 10 with 2 treatments every day, there could be a component of radiation pneumonitis causing his shortness of breath DVT: Xarelto Code Visit Inpatient E&M: 95283 Init Hosp L3
[2019-07-09] MEDS: FLUoxetine 20 MG Capsule 60 MG PO (15:04)
[2019-07-09] MEDS: amLODIPine 10 MG Tablet PO (15:05)
[2019-07-09] MEDS: Losartan Potassium 50 MG Tablet PO ×2 (15:05→22:28)
[2019-07-09] MEDS: Acetaminophen 325 MG Tablet 650 MG PO (15:37)
[2019-07-09] MEDS: Pravastatin 40 MG Tablet PO (15:38)
[2019-07-09] MEDS: Metoprolol(XL)Succ 50 MG Tablet PO (15:39)
[2019-07-09] MEDS: Rivaroxaban 20 MG Tablet PO (15:42)
--- NOTE | 2019-07-09 17:24 | CM.UR ---
Attempted to meet with patient for RN case mgmt assessment approx 2pm however he was sleeping quietly on bipap. New admission today. Joce Hector RN, CCM.
[2019-07-09] MEDS: 0.9% Normal Saline 1,000 ML 100 ML IV (18:02)
[2019-07-09] MEDS: Budesonide Respules 0.5 MG/2 ML AMPUL.NEB. INHALATION (19:32)
[2019-07-09] MEDS: Sucralfate 1 GM Tablet PO (22:27)
[2019-07-10] VITALS (13 sets, daily range): BP systolic 132–148; BP diastolic 69–87; PULSE 77–93; RESP 16–20; TEMP 36.6–36.8; O2SAT 93–97
--- NOTE | 2019-07-10 00:49 | NURSING ---
Placed STAT Mg lab order in per Dr. Madden for lab to come and draw on patient for a VTACH run of 6. Lab added Mg on from blood that was drawn from 0840 this AM. Called lab for them to come up to obtain a fresh tube for his Mg level. Lab is unable to delete the Mg level they placed as an add on and requested I put in a new stat order for Mg so they can complete it.
[2019-07-10 00:58] LABS: Magnesium 1.8 mg/dL (1.6-2.6)
[2019-07-10] MEDS: 0.9% Normal Saline 1,000 ML 100 ML IV (05:20)
[2019-07-10 06:20] LABS: Absolute Lymphocyte Count 0.51 X10^3/uL (0.83-4.51); Basophil# 0.01 X10^3/uL; Basophil% 0.2 % (0-1); Hematocrit 33.8 % (40-54); Lymphocyte # 0.51 X10^3/ul (4.0); Lymphocyte % 8.9 % (19-41); Mean Corp Hgb Conc 32.5 g/dL (32-36); Mean Corpuscular Hgb 29.2 pg (27.0-32.0); Mean Corpuscular Volume 89.7 fL (80-94); Mean Platelet Vol. 9.6 fl (6.2-12.0); Monocyte# 0.09 X10^3/uL; Monocyte% 1.6 % (0-10); NRBC Flagged by Analyzer 0 % (0-5); Neutrophil # 5.04 X10^3/uL (2.7-7.7); Neutrophil % 88.1 % (47-70); POSITIVE DIFFERENTIAL YES; Platelet Count 254 K/mm3 (150-450); RBC Distribution Width SD 47.5 fl (35.1-43.9); Red Blood Count 3.77 M/mm3 (4.6-6.2); White Blood Count 5.7 K/mm3 (4.4-11.0)
[2019-07-10 06:24] LABS: Differential Indicated SCAN CRITERIA MET
[2019-07-10] MEDS: Pantoprazole Sodium 20 MG Tablet PO (06:31)
[2019-07-10] MEDS: Sucralfate 1 GM Tablet PO ×4 (06:31→22:02)
[2019-07-10 06:33] LABS: Anion Gap 3 (5-15); BUN 10 mg/dL (7-18); BUN/Creat Ratio 17.4 RATIO (10-20); Calcium,Total 8.8 mg/dL (8.5-10.1); Chloride 105 mmol/L (98-107); Creatinine, Serum 0.57 mg/dL (0.70-1.30); EST Glomerular Filtration Rate 157 mL/min (>60); Est Glom Filt Rate - Afr Amer 190 mL/min (>60); Estimated Creatinine Clearance 177.07 ml/min; Glucose 107 mg/dL (74-106); Potassium 4.2 mmol/L (3.5-5.1); Sodium Level 137 mmol/L (136-145)
[2019-07-10] MEDS: Budesonide Respules 0.5 MG/2 ML AMPUL.NEB. INHALATION ×2 (07:25→19:55)
[2019-07-10] MEDS: Ipratropium/Albuterol Sulfate 3 ML AMPUL.NEB INHALATION ×3 (07:25→19:45)
[2019-07-10] MEDS: Losartan Potassium 50 MG Tablet PO ×2 (08:20→22:02)
[2019-07-10] MEDS: amLODIPine 10 MG Tablet PO (08:20)
[2019-07-10] MEDS: FLUoxetine 20 MG Capsule 60 MG PO (08:20)
--- NOTE | 2019-07-10 13:21 | PCM.PN.HOSP ---
Patient Problems: Active and Suspected Problems (Last Reviewed 07/04/19 @ 08:58 by Carine Dave) Rectal pain (Acute) Nocturia (Acute) Dyspnea (Acute) Lung cancer (Acute) Consolidation of right lower lobe of lung (Acute) Subjective: Breathing much better today after his brought him in his CPAP, he is currently on room air. Vitals/I&O's: Vital Signs Temp Pulse Resp BP Pulse Ox 98.3 F 87 20 H 145/69 H 96 07/10/19 08:13 07/10/19 08:13 07/10/19 08:13 07/10/19 08:13 07/10/19 08:13 Oxygen Flow Rate (L/min) 5 Oxygen Delivery Method Room Air Weight: 280 lb 3.2 oz Body Mass Index (BMI) 34.1 Intake and Output for Last 24 Hours 07/08/19 07/09/19 07/10/19 23:59 23:59 23:59 Intake Total 1746 / 1746 1953 / 1953 Output Total 700 / 700 750 / 750 Balance 1046 / 1046 1203 / 1203 General: Alert, Oriented x3, Cooperative, no acute distress HEENT: Atraumatic, PERRLA, EOMI, Normocephalic Oral: Dry Mucosa Neck: Supple, No JVD Lungs: Clear to auscultation, Normal air movement, No rhonchi, No wheeze, No rales, diminished on right compared to left Cardiovascular: Normal S1, Normal S2, No murmurs, Tachycardic, - - Irregular rhythm Abdomen: Soft, Non Tender, Non-Distended, No Hepato-splenomegaly Extremities: No edema, Capillary Refill Less than 3 Seconds Skin: No rashes, No breakdown Neurological: Neuro grossly intact, Sensory exam intact to light touch and pain Psych/Mental Status: Normal Affect, Appropriate Microbiology Past 72 Hours 07/10/19 04:50 Urine, Random Legionella Antigen - Final 07/10/19 04:50 Urine, Random Streptococcus pneumoniae Antigen (M - Final Laboratory Results 07/09/19 08:40: Magnesium Cancelled 07/10/19 00:35: Magnesium 1.8 07/10/19 05:40: Sodium 137, Potassium 4.2, Chloride 105, Carbon Dioxide 29.0, Anion Gap 3 L, BUN 10, Creatinine 0.57 L, Estim Creat Clear Calc 177.07, Est GFR (MDRD) Af Amer 190, Est GFR (MDRD) Non-Af 157, BUN/Creatinine Ratio 17.4, Glucose 107 H, Calcium 8.8 07/10/19 05:40: WBC 5.7, RBC 3.77 L, Hgb 11.0 L, Hct 33.8 L, MCV 89.7, MCH 29.2, MCHC 32.5, RDW Std Deviation 47.5 H, RDW Coeff of Benjamin 15.0 H, Plt Count 254, MPV 9.6, Immature Gran % (Auto) 1.200 H, Neut % (Auto) 88.1 H, Lymph % (Auto) 8.9 L, [place] % (Auto) 1.6, Eos % (Auto) 0.0, Baso % (Auto) 0.2, Absolute Neuts (auto) 5.0, Absolute Lymphs (auto) 0.51 L, Nucleated RBC % 0, Differential Comment Current Medications Acetaminophen (Tylenol) 650 mg PO Q6H PRN PRN PRN Reason: fever Last Admin: 07/09/19 15:37 Dose: 650 mg Documented by: Albuterol Sulfate (Ventolin Aerosols) 2.5 mg INHALATION Q4H PRN PRN PRN Reason: SOB &/OR WHEEZING Albuterol/Ipratropium (Duoneb) 3 ml INHALATION Q6HWA.RT [facility] Last Admin: 07/10/19 13:15 Dose: 3 ml Documented by: Amlodipine Besylate (Norvasc) 10 mg PO DAILY CLINT Last Admin: 07/10/19 08:20 Dose: 10 mg Documented by: Budesonide (Pulmicort Aerosol) 0.5 mg INHALATION Q12H.RT CLINT Last Admin: 07/10/19 07:25 Dose: 0.5 mg Documented by: Fluoxetine HCl (Prozac) 60 mg PO DAILY CLINT Last Admin: 07/10/19 08:20 Dose: 60 mg Documented by: Heparin Sodium (Beef Lung) () 50 units IV UD PRN PRN Reason: HEPARIN FLUSH Sodium Chloride () 1,000 mls @ 100 mls/hr IV .Q10H CLINT Last Admin: 07/10/19 05:20 Dose: 100 mls/hr Documented by: Azithromycin 500 mg/ Dextrose 255 mls @ 250 mls/hr IV Q24 CLINT Stop: 07/11/19 11:02 Last Admin: 07/10/19 08:21 Dose: 250 mls/hr Documented by: Sodium Chloride () 250 mls @ 15 mls/hr IV .[id number] PRN PRN Reason: SALINE FLUSH Ampicillin Sodium/Sulbactam Sodium 3,000 mg/ Sodium Chloride 100 mls @ 150 mls/hr IV Q8 [facility] Stop: 07/14/19 22:01 Loperamide HCl (Imodium) 4 mg PO Q6H PRN PRN PRN Reason: Diarrhea Losartan Potassium (Cozaar) 50 mg PO BID [facility] Last Admin: 07/10/19 08:20 Dose: 50 mg Documented by: Metoprolol Succinate (Toprol Xl (Beta Eufemia)) 50 mg PO DINNER [facility] Last Admin: 07/09/19 15:39 Dose: 50 mg Documented by: Ondansetron HCl (Zofran) 8 mg PO Q8H PRN PRN PRN Reason: NAUSEA Pantoprazole Sodium (Protonix) 20 mg PO DAILY@0730 [facility] Last Admin: 07/10/19 06:31 Dose: 20 mg Documented by: Pravastatin Sodium (Pravachol) 40 mg PO DINNER [facility] Last Admin: 07/09/19 15:38 Dose: 40 mg Documented by: Rivaroxaban (Xarelto) 20 mg PO DINNER [facility] Last Admin: 07/09/19 15:42 Dose: 20 mg Documented by: Sodium Chloride () 10 - 40 ml IV UD PRN PRN Reason: VAD FLUSH Sucralfate (Carafate) 1 gm PO 1HR_ACHS [facility] Last Admin: 07/10/19 11:04 Dose: 1 gm Documented by: Medical Necessity - Tobacco Use Smoking Status: Former smoker Assessment/Plan All Active Problems (Last Reviewed 07/04/19 @ 08:58 by Carine Dave) Small cell lung cancer, right upper lobe (Acute) Regional lymph node metastasis present (Acute) Pleural effusion, right (Acute) Encounter for education (Acute) Tooth pain (Acute) Encounter for adjustment or management of vascular access device (Acute) Abnormal PET scan of colon (Acute) Rectal pain (Acute) Nocturia (Acute) Dyspnea (Acute) Lung cancer (Acute) Consolidation of right lower lobe of lung (Acute) History of tonsillectomy (Resolved) Pilonidal cyst (Resolved ~1986) 1. Sepsis secondary to RLL community-acquired pneumonia from gram-positive organism/acute hypoxic respiratory failure secondary to RLL pneumonia -We will start on Unasyn and azithromycin, he states that he did have 2 L thoracentesis done about a month ago -We will obtain blood cultures, lactate was 1 -We will try to obtain a sputum culture, Legionella and strep urine antigens are negative -Continue with CPAP at night, and oxygen as needed -We will discontinue his IV fluids, and monitor fluid status 2. Persistent A. fib/HTN/HLD/ALEX -Rates are now under control, will continue to monitor -We can continue his home blood pressure medications, as well as his cholesterol medications -Continue with Xarelto, but will hold the Lasix, monitor and if he becomes overloaded can restart his Lasix otherwise plan to restart Lasix on discharge -His will bring in his CPAP machine 3. Limited stage small cell lung cancer involving the right hilum/continued tobacco use -Once again advised cessation of tobacco especially given that he is being treated for lung cancer which was caused by his tobacco use -He is undergoing chemoradiation currently, he is received his first week of radiation treatments, and he is received 10 with 2 treatments every day, there could be a component of radiation pneumonitis causing his shortness of breath DVT: Dinah Code Visit Inpatient E&M: 50068 Subs Hosp L2
[2019-07-10] MEDS: Acetaminophen 325 MG Tablet 650 MG PO (13:47)
[2019-07-10] MEDS: Ondansetron 8 MG Tablet PO (13:48)
[2019-07-10] MEDS: Metoprolol(XL)Succ 50 MG Tablet PO (16:07)
[2019-07-10] MEDS: Pravastatin 40 MG Tablet PO (16:07)
[2019-07-10] MEDS: Rivaroxaban 20 MG Tablet PO (16:07)
[2019-07-11 02:59] VITALS: PULSE 98
[2019-07-11 04:00] VITALS: BP 141/81; PULSE 76; RESP 18; TEMP 36.7; O2SAT 95
[2019-07-11] MEDS: Pantoprazole Sodium 20 MG Tablet PO (06:34)
[2019-07-11] MEDS: Sucralfate 1 GM Tablet PO ×2 (06:34→10:18)
[2019-07-11] MEDS: 0.9% NaCl VAD Flush IV ×2 (06:35→11:56)
[2019-07-11 06:50] VITALS: PULSE 89; RESP 20; O2SAT 96
[2019-07-11] MEDS: Ipratropium/Albuterol Sulfate 3 ML AMPUL.NEB INHALATION (06:50)
[2019-07-11] MEDS: Budesonide Respules 0.5 MG/2 ML AMPUL.NEB. INHALATION (06:50)
[2019-07-11 07:10] VITALS: PULSE 91
[2019-07-11 10:00] VITALS: BP 137/87; PULSE 91; RESP 16; TEMP 36.6; O2SAT 94
[2019-07-11] MEDS: Doxazosin 1 MG Tablet 2 MG PO (10:18)
[2019-07-11] MEDS: Losartan Potassium 50 MG Tablet PO (10:22)
[2019-07-11] MEDS: amLODIPine 10 MG Tablet PO (10:22)
[2019-07-11] MEDS: FLUoxetine 20 MG Capsule 60 MG PO (10:22)
--- NOTE | 2019-07-11 11:14 | DCINST_ITS ---
- Discharge Diagnoses Current Active Problems: Current Active and Chronic Problems (Last Reviewed 07/04/19 @ 08:58 by Carine Dave) Rectal pain (Acute) Nocturia (Acute) Dyspnea (Acute) Lung cancer (Acute) Consolidation of right lower lobe of lung (Acute) You will use the following diet at home:: Calorie/Carbohydrate Controlled (specify 1200, 1400, etc) - 1800 Your food should be the consistency of: Regular Discharge Activity: Return to Normal Activity Allergies/Adverse Reactions: Allergies pioglitazone HCl [From [employer]] Adverse Reaction (Severe, Verified 07/11/19 08:41) Other WEIGHT GAIN Medications to take at Discharge Fluoxetine [Prozac] 60 mg PO DAILY 02/05/15 Metoprolol(XL)Succ [Toprol Xl (Beta Eufemia)] 50 mg PO DINNER 02/05/15 Fluticasone 0.05% [Flonase Nasal [place]] 2 spray NASAL DAILY PRN PRN 04/11/16 Furosemide [Lasix] 40 mg PO DAILY 04/11/16 Pravastatin [Pravachol] 40 mg PO DINNER 04/11/16 Loperamide [Imodium] 4 mg PO Q6H PRN PRN #10 cap 02/28/19 doxazosin 2 mg tablet 2 mg PO DAILY tab 03/01/19 albuterol sulfate 90 mcg/actuation breath activated powder inhaler 2 inh INHALATION Q4H PRN PRN #1 ea 04/13/19 Lidocaine/Prilocaine [Lidocaine-Prilocaine Cream] 1 applicatio TP DAILY PRN PRN 30 Days #1 tube 06/01/19 Ondansetron [Ondansetron Odt] 8 mg PO Q8H PRN PRN 10 Days #30 tab.rapdis 06/01/19 Prochlorperazine Maleate 10 mg PO Q6H PRN PRN 5 Days #30 tab 06/14/19 Omeprazole 20 mg PO DAILY #30 tablet.dr 07/05/19 Sucralfate [Carafate] 1 gm PO 4X/DAY #60 tab 07/05/19 Amlodipine [Norvasc] 10 mg PO DAILY 07/09/19 Fluticasone/Vilanterol [Breo Ellipta 200-25 Mcg INH] 1 inh INHALATION QDAY 07/09/19 Losartan Potassium [Cozaar] 50 mg PO BID 07/09/19 Rivaroxaban [Xarelto] 20 mg PO QDAY 07/09/19 Tiotropium [place] [Spiriva Respimat] 2 puff INHALATION DAILY 07/09/19 Levofloxacin [Levaquin] 750 mg PO DAILY #5 tab 07/11/19 The following prescriptions were given: Levofloxacin [Levaquin] 750 mg PO DAILY #5 tab Transmission Status: Pending to [facility]/pharmacy #[id number] Primary Care Physician: Olga Wisdom [Primary Care Provider] - Test Results: Test results from this visit will be discussed in further detail at your follow- up appointment, if applicable. Please Follow Up With: Cristiana Johnson MD When: FOR RADIATION THERAPY ON 07/11/2019 Proposed Discharge Date: 07/11/19
--- NOTE | 2019-07-11 11:16 | PCM.DC.SUM ---
<Azeem Huerta - Last Filed: 07/11/19 15:15> Discharge Date and Diagnosis - Problem List Patient Problems: Active and Suspected Problems (Last Reviewed 07/04/19 @ 08:58 by Carine Dave) Rectal pain (Acute) Nocturia (Acute) - Primary Discharge Diagnosis Active and Suspected Problems (Last Reviewed 07/04/19 @ 08:58 by Carine Dave) Rectal pain (Acute) Nocturia (Acute) - Secondary Discharge Diagnosis Chronic Problems (Last Reviewed 07/04/19 @ 08:58 by Carine Dave) Nicotine abuse (Chronic) 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 classification (Chronic) 76% predicted Marijuana abuse (Chronic) Tobacco abuse (Chronic) Edema (Chronic) ALEX (obstructive sleep apnea) (Chronic) CPAP 10 cm of water Asthma, moderate persistent (Chronic) HTN (hypertension) (Chronic) Persistent atrial fibrillation (Chronic) Diabetes mellitus (Chronic) Hyperlipidemia (Chronic) Hospital Course and Treatment Consults: Seven - radiation oncology Operations: None Procedures: None Summary of Care Provided: Hospital course: The patient is a 53 year old M with past medical history of small cell lung cancer currently undergoing radiation therapy, also with a history of obstructive sleep apnea, tobacco abuse, COPD, type 2 diabetes, chronic atrial fibrillation, hypertension hyperlipidemia, who presented to the emergency room with increased shortness of breath that began the morning of presentation. This progressively worsened until he came to the emergency room. Chest x-ray demonstrated right lower lobe infiltrate and he had significant leukocytosis and a fever of 100.1. He was also tachycardic. Lactic acid was negative. He was felt to have right lower lobe community-acquired pneumonia. He was admitted to the PCU on telemetry. He initially required oxygen delivered by a 50% Ventimask in order to maintain good sats. The patient responded very well to antibiotics over the next 2 days. He was treated with IV Unasyn is in azithromycin. Urine antigens were negative, blood cultures were negative at 48 hours. His fevers resolved. His leukocytosis resolved. He was able to be weaned completely off oxygen. He had no further shortness of breath at rest or with exertion. The patient continued his radiation therapy while here. He was transitioned to oral Levaquin for discharge. He was discharged home in stable condition. He will need follow-up with his PCP in 1 to 2 weeks. He should follow-up with oncology as directed. This patient was seen by Azeem Huerta PA-C under the supervision of Doctor Kia. [] Patient Problems: Active and Suspected Problems (Last Reviewed 07/04/19 @ 08:58 by Carine Dave) Rectal pain (Acute) Nocturia (Acute) - Physical Exam General: Alert, Oriented x3, Cooperative HEENT: Atraumatic, PERRLA, EOMI, Normocephalic Neck: Supple, No JVD, Negative Carotid Bruits Lungs: Clear to auscultation, Normal air movement Cardiovascular: Regular rate, No murmurs Abdomen: Bowel Sounds Present, Soft, Non Tender Extremities: No edema, Capillary Refill Less than 3 Seconds Skin: No rashes, No breakdown Musculoskeletal: No Tenderness to Palpation of Joints or Extremities Neurological: Cranial nerves II-XII grossly intact Psych/Mental Status: Normal Affect, Appropriate Vital Signs Temp Pulse Resp BP Pulse Ox 98 F 91 16 137/87 H 94 07/11/19 10:00 07/11/19 10:00 07/11/19 10:00 07/11/19 10:00 07/11/19 10:00 Oxygen Flow Rate (L/min) 5 Oxygen Delivery Method Room Air Weight: 280 lb 3.2 oz Body Mass Index (BMI) 34.1 Intake and Output for Last 24 Hours 07/09/19 07/10/19 07/11/19 23:59 23:59 23:59 Intake Total 1746 / 1746 3557 / 3557 240 / 240 Output Total 700 / 700 750 / 750 Balance 1046 / 1046 2807 / 2807 240 / 240 Microbiology Past 72 Hours 07/09/19 11:48 Blood Culture - Preliminary Blood Culture (Wb) - Right Forearm No growth in 48 hours. 07/09/19 11:44 Blood Culture - Preliminary Blood Culture (Wb) - Anticubital Right No growth in 48 hours. 07/10/19 04:50 Legionella Antigen - Final Urine, Random 07/10/19 04:50 Streptococcus pneumoniae Antigen (M - Final Urine, Random Home Medications: Medications to take at Discharge Fluoxetine [Prozac] 60 mg PO DAILY 02/05/15 Metoprolol(XL)Succ [Toprol Xl (Beta Eufemia)] 50 mg PO DINNER 02/05/15 Fluticasone 0.05% [Flonase Nasal [place]] 2 spray NASAL DAILY PRN PRN 04/11/16 Furosemide [Lasix] 40 mg PO DAILY 04/11/16 Pravastatin [Pravachol] 40 mg PO DINNER 04/11/16 Loperamide [Imodium] 4 mg PO Q6H PRN PRN #10 cap 02/28/19 doxazosin 2 mg tablet 2 mg PO DAILY tab 03/01/19 albuterol sulfate 90 mcg/actuation breath activated powder inhaler 2 inh INHALATION Q4H PRN PRN #1 ea 04/13/19 Lidocaine/Prilocaine [Lidocaine-Prilocaine Cream] 1 applicatio TP DAILY PRN PRN 30 Days #1 tube 06/01/19 Ondansetron [Ondansetron Odt] 8 mg PO Q8H PRN PRN 10 Days #30 tab.rapdis 06/01/19 Prochlorperazine Maleate 10 mg PO Q6H PRN PRN 5 Days #30 tab 06/14/19 Omeprazole 20 mg PO DAILY #30 tablet. 07/05/19 Sucralfate [Carafate] 1 gm PO 4X/DAY #60 tab 07/05/19 Amlodipine [Norvasc] 10 mg PO DAILY 07/09/19 Fluticasone/Vilanterol [Breo Ellipta 200-25 Mcg INH] 1 inh INHALATION QDAY 07/09/19 Losartan Potassium [Cozaar] 50 mg PO BID 07/09/19 Rivaroxaban [Xarelto] 20 mg PO QDAY 07/09/19 Tiotropium [place] [Spiriva Respimat] 2 puff INHALATION DAILY 07/09/19 Levofloxacin [Levaquin] 750 mg PO DAILY #5 tab 07/11/19 Following Prescrptions Were Given to Patient: Levofloxacin [Levaquin] 750 mg PO DAILY #5 tab Transmission Status: Received by [facility]/pharmacy #[id number] Primary Care Physician: Olga Wisdom [Primary Care Provider] - Meaningful Use Info Meaningful Use Diagnoses (Choose all that apply): None applicable <Eren Adam - Last Filed: 07/11/19 15:35> Discharge Date and Diagnosis Date of Admission: 07/09/19 Date of Discharge: 07/11/19 - Primary Discharge Diagnosis Active and Suspected Problems (Last Reviewed 07/04/19 @ 08:58 by Cairne Dave) Rectal pain (Acute) Nocturia (Acute) Dyspnea (Acute) Lung cancer (Acute) Consolidation of right lower lobe of lung (Acute) - Secondary Discharge Diagnosis Chronic Problems (Last Reviewed 07/04/19 @ 08:58 by Carine Dave) Nicotine abuse (Chronic) 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 classification (Chronic) 76% predicted Marijuana abuse (Chronic) Tobacco abuse (Chronic) Edema (Chronic) ALEX (obstructive sleep apnea) (Chronic) CPAP 10 cm of water Asthma, moderate persistent (Chronic) HTN (hypertension) (Chronic) Persistent atrial fibrillation (Chronic) Diabetes mellitus (Chronic) Hyperlipidemia (Chronic) Hospital Course and Treatment Operations: None Summary of Care Provided: This patient was seen in conjunction with Azeem Huerta PA-C . I have independently interviewed and examined the patient and reviewed pertinent historical, laboratory, and other data. Please refer to Azeem Huerta PA-C note for details of this patient's presentation, findings, and recommendations. I have reviewed Azeem Huerta PA-C note and concur with documented findings. In brief, patient is a 53-year-old male currently undergoing chemoradiation for small cell lung cancer admitted with sepsis secondary to community-acquired pneumonia involving the right lower lobe. Patient was admitted to a regular nursing floor managed per protocol. He did experience rapid improvement discharged home to continue with his therapy Hospital course as documented above by Azeem Huerta PA-C - Physical Exam Vital Signs Temp Pulse Resp BP Pulse Ox 98 F 91 16 137/87 H 94 07/11/19 10:00 07/11/19 10:00 07/11/19 10:00 07/11/19 10:00 07/11/19 10:00 Oxygen Flow Rate (L/min) 5 Oxygen Delivery Method Room Air Weight: 127.097 kg Body Mass Index (BMI) 34.1 Intake and Output for Last 24 Hours 07/09/19 07/10/19 07/11/19 23:59 23:59 23:59 Intake Total 1746 / 1746 3557 / 3557 240 / 240 Output Total 700 / 700 750 / 750 Balance 1046 / 1046 2807 / 2807 240 / 240 Microbiology Past 72 Hours 07/10/19 04:50 Legionella Antigen - Final Urine, Random 07/10/19 04:50 Streptococcus pneumoniae Antigen (M - Final Urine, Random Discharge Activity: Return to Normal Activity Please Follow Up With: Cristiana Johnson MD When: FOR RADIATION THERAPY ON 07/11/2019 Medical Necessity - Tobacco Use Smoking Status: Former smoker Code Visit Inpatient E&M: 51856 Disch Hosp
--- NOTE | 2019-07-11 11:35 | CASEMGMT ---
CORTNEY MORA assessment: Face to Face with patient for initial transition planning/care coordination assessment. CORTNEY MORA introduced self and role at [facility], pt voices understanding and consents to assessment at this time. Pt is lying in bed in no distress at this time. Pt is A/Ox4 at this time and answers all questions appropriately at this time. Pt has acute small cell lung CA with regional lymph node mets and is currently getting radiation and chemo. Pt states next radiation treatment is at 1500 today and pt would like to be discharged to go straight there. Care providers, pharmacy, and demographics verified/updated at this time. PCP: Olga Amor Specialists: Vitaliy onc; dell Amezcua onc Preferred Pharmacy: [facility] Insurance: [facility] Prescription Benefit: CRS Living Will/HPOA: Pt states does not have LW/HPOA and declines info at this time. LNOK: Eimly Gomez, sister; Heather Cantu, sister Living Arrangements: Pt states lives with his sister, Emily, his niece, and her 3 children in a duplex with stairs. Pt states no concerns with ADL's at this time. Transportation: Pt states drives self and states no transportation concerns at this time. DME/HHC: Pt states has a cane that he uses occasionally and cpap thru [employer] that he uses nightly. Pt states no need for any further DME at this time. Pt states no hx of HHC or SNF in the past. Pt states no concerns with going home at time of discharge. 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 Pt states that he quit smoking once he found out he had cancer but states that he smoked a pack/day for 40 years prior to that. Pt states rarely drinks ETOH, but states that he occasionally smokes cannabis. Pt states no further concerns/needs at this time. CM to follow for any further discharge planning/needs. Advised pt to ask for CM if any further questions/concerns/needs arise, voices understanding. Pt Goal: Home Plan: [place] CORTNEY MORA
--- NOTE | 2019-07-11 11:42 | PHA.DC.COU ---
Pharmacy Services has performed discharge medication counseling for this patient. The patient was counseled on the following discharge medications and changes in medications for homegoing review. 1. LEVOFLOXACIN 750MT PO DAILY X5 DAYS The Reason for Use, instructions for use, and potential side effects were reviewed for all new medications. The patient's questions regarding all of their medications were answered. The patient was able to verbally demonstrate an understanding of their discharge medications.
--- NOTE | 2019-07-12 13:18 | CASEMGMT ---
CORTNEY CM DC PHONE CALL DC DATE: 07/12/19 DC Disposition: Home Diagnosis on Discharge: LACE/STRATA: 11/02 Attempted call to patient. Voicemail did not have name identifier. Jewell PRITCHARDN RN ACM
== END 2019-07-11 14:29 | disposition home or self-care (01) | DRG 720 ==
LOC: ED 09:27 → PCU 11:10
PROVIDERS: Hospitalist; Admitting Provider Family Medicine; Emergency Provider Emergency Medicine; Referring Provider Student in an Organized Health Care Education/Training Program; Visit Provider Internal Medicine
DX: A41.9 Sepsis, unspecified organism (principal); J18.9 Pneumonia, unspecified organism; J96.01 Acute respiratory failure with hypoxia; I48.1 Persistent atrial fibrillation; E78.5 Hyperlipidemia, unspecified; G47.33 Obstructive sleep apnea (adult) (pediatric); I10 Essential (primary) hypertension; C34.11 Malignant neoplasm of upper lobe, right bronchus or lung; Z92.3 Personal history of irradiation; Z87.891 Personal history of nicotine dependence; Z79.899 Other long term (current) drug therapy
CPT/HCPCS: 36415; 36591; 71045; 77014; 77290; 77336; 77386; 80048; 80076; 83605; 83735; 83880; 84484; 85025; 85610; 85730; 87040; 87449; 93005; 94640; 97802; 99285; J7030; J7040; Q9967; A4216; J0295; J2405; J9181

== ENCOUNTER → 2019-09-21 12:51 | Outpatient (CLI) | payer MEDICAID, SELFPAY ==
[2019-06-07 10:59] VITALS: BMI 33.7
[2019-08-23 09:25] VITALS: BMI 32.8
[2019-08-26 13:50] VITALS: BMI 34.0
--- NOTE | 2019-09-21 12:52 | CT_ITS ---
HISTORY: RESTAGINGLUNG CA W/ CHEMO Tamp; RAD TX TECHNIQUE: Helically acquired images were obtained of the abdomen and pelvis following the intravenous administration of 100CC ml of Isovue 370 Iodinated contrast. 2D reformats. Oral contrast was administered. A radiation dose optimization technique was used for this scan. COMPARISON: None FINDINGS: # of images incl. paperwork: 404 LUNG BASES: Large right pleural effusion. Minimal basilar atelectasis. CT abdomen: Degenerative disc disease The gallbladder is distended. There appears to be some pericolic cystic fluid near the gallbladder fundus. This is new.. Liver, spleen, pancreas,, left adrenal gland are normal . An 11 mm right adrenal nodule has a central density of 36 Hounsfield units I believe this is new since May 23, 2019, and suspicious for metastasi.. The kidneys are normal. The aorta is diseased with severe atherosclerotic plaque, but without aneurysm or dissection CT/Abdomen WITH IV Contrast IMPRESSION: Gallbladder wall thickening with pericholecystic fluid and a distended gallbladder suggestive of acute cholecystitis. Persistent large right pleural effusion with basilar atelectasis. Right adrenal nodule that is new and/or larger since May 23, 2019 and suspicious for metastatic disease. Individualized dose optimization techniques were used for this CT. at 0609 Reported and signed by: Anibal Farris MD Electronically Signed: Anibal Farris MD at 6:07 EDT Tel , Service support ,
--- NOTE | 2019-09-21 12:52 | CT_ITS ---
STUDY: CT CHEST WITH CONTRAST REASON FOR EXAM: Male, 53 years old. Restaging. Patient has history of the lung cancer treated with chemotherapy and radiation therapy. RADIATION DOSAGE (If Supplied By Facility): CTDIvol = ( 22.01 ) mGy, DLP = ( 1932.07 ) mGycm TECHNIQUE: Transaxial imaging was performed following intravenous administration of IV Isovue 370 100CC. Multiplanar coronal and sagittal images were reformatted. Individualized dose optimization techniques were used for this CT. COMPARISON: Comparison is made with prior study dated April 08, 2019. FINDINGS: A left-sided portacatheter is once again seen in the superior vena cava. Moderate sized right pleural effusion. This has increased slightly as compared to prior study. Since prior study, the pleural-based masses in the lateral aspect of the right upper lobe have decreased in size. Air bronchogram is seen within it suggestive of possible post radiation pneumonitis. The largest measures 3.3 cm x 2.5 cm. The previously seen mass lesions in the right middle lobe and peripheral aspect of the right lower lobe have almost completely resolved. There are calcifications of the coronary arteries. Residual right hilar lymphadenopathy although there has been a marked degree of improvement as compared to prior study. Mild residual mediastinal lymphadenopathy. Improvement in the right paratracheal adenopathy. This is worse in the subcarinal region. Normal enhanced pulmonary arteries. Normal aorta arch and descending thoracic aorta. There are multi-level degenerative changes of the thoracic spine. There is no demonstrated abnormality of the visualized upper abdomen. CT/Chest WITH Contrast IMPRESSION: Residual moderate size right pleural effusion with improvement of the masses seen in the right middle lobe and right lower lobe as described. Interval improvement of the mediastinal and right hilar lymphadenopathy. Electronically Signed: Melquiades Stallings, at 15:51 EDT , Service support ,
== END ==
PROVIDERS: Referring Provider Internal Medicine Hematology & Oncology; Visit Provider Internal Medicine Hematology & Oncology
DX: C34.11 Malignant neoplasm of upper lobe, right bronchus or lung (principal); C77.9 Secondary and unspecified malignant neoplasm of lymph node, unspecified
CPT/HCPCS: 71260; 74160; Q9967; A4216

== ENCOUNTER → 2019-10-06 10:25 | Outpatient (CLI) | payer MEDICAID, SELFPAY ==
[2019-06-07 10:59] VITALS: BMI 33.7
[2019-08-26 13:50] VITALS: BMI 34.0
[2019-09-26 11:29] VITALS: BMI 33.5
--- NOTE | 2019-10-06 10:32 | MRI_ITS ---
STUDY: MRI BRAIN WITH AND WITHOUT CONTRAST REASON FOR EXAM: Male, 54 years old. Small cell lung cancer TECHNIQUE: Standardized multiplanar fat and water weighted pulse sequences were obtained. IV Dotarem 25 was administered for the contrast portion of the examination. COMPARISON: 05/24/2019 FINDINGS: There is mild cerebral atrophy with widening of the extra-axial spaces and ventricular dilatation. Normal white matter tracts of the supratentorial brain. There is no evidence for recent intracranial ischemia or other cause of cytotoxic edema on diffusion weighted imaging (DWI). Normal T2* images of the brain without demonstrated susceptibility artifact. There is no demonstrated hemosiderin stain. Chronic lacunar infarct of the left putamen. Normal thalami. There is no extra-axial fluid accumulation. Normal flow voids within the major intracranial circulation suggesting patency by spin echo criteria. Normal venous enhancement. There is no enhancing intra-axial or extra-axial abnormality. Normal sella turcica, pituitary gland, infundibular stalk, optic chiasm and hypothalamus. Normal tectal plate and pineal gland. Normal midbrain, yuliana and medulla. Normal cerebellum. Normal basal cisterns. Normal bilateral temporal bones. Normal bilateral internal auditory canals. No demonstrated orbital abnormality, within the constraints of a routine brain study. Normal visualized paranasal sinuses. Normal calvarium and skull base. Normal visualized soft tissue structures. Normal visualized upper cervical spine. MRI/Brain W/WO Contrast IMPRESSION: No MR evidence of metastatic disease per Electronically Signed: Pb Troncoso MD at 11:51 EST Tel , Service support ,
== END ==
PROVIDERS: Referring Provider Student in an Organized Health Care Education/Training Program; Visit Provider Student in an Organized Health Care Education/Training Program
DX: C34.90 Malignant neoplasm of unspecified part of unspecified bronchus or lung (principal)
CPT/HCPCS: 70553; A9575

== ENCOUNTER → 2019-11-28 09:02 | Outpatient (CLI) | payer MEDICAID, SELFPAY ==
[2019-06-07 10:59] VITALS: BMI 33.7
[2019-09-26 11:29] VITALS: BMI 33.5
[2019-11-28 07:31] VITALS: BMI 30.7
--- NOTE | 2019-11-28 09:03 | CT_ITS ---
STUDY: CT ABDOMEN WITH CONTRAST REASON FOR EXAM: Male, 54 years old. F/U SMALL CELL LUNG CA -- LAST CHEMO 06/2019, RAD TX 05/2019 -- +SMOKER RADIATION DOSAGE (If Supplied By Facility): CTDIvol = ( 22.81 ) mGy, DLP = ( 2927.86 ) mGycm TECHNIQUE: Transaxial images were obtained post I.V. administration of IV 100mL Isovue-300, and without oral contrast. Sagittal and coronal images were reconstructed. Individualized dose optimization techniques were used for this CT. COMPARISON: Previous study of 09/21/2019 FINDINGS: There is a moderate right-sided pleural effusion. This is stable in the interval. The visualized portions of the heart are within normal limits. Normal liver. Normal gallbladder and extrahepatic biliary system. Normal spleen. Normal pancreas. Normal bilateral adrenal glands. Normal right kidney. Normal left kidney. Normal visualized stomach. Normal small intestine. Normal colon. The appendix is visualized and appears normal. There are calcified plaques of the abdominal aorta. Normal inferior vena cava. Normal retroperitoneum. Normal abdominal wall. There are degenerative changes of the visualized thoracolumbar spine. CT/Abdomen WITH IV Contrast IMPRESSION: 1. Moderate right-sided pleural effusion, stable in the interval. 2. Calcified plaques of the abdominal aorta. 3. Degenerative changes of the visualized thoracolumbar spine. 4. There is no evidence of free intra-abdominal or intrapelvic air, fluid, or inflammatory process. 5. A suspected right adrenal nodule reported on the prior study is not identified at this time. Electronically Signed: Malvin Vasquez MD at 20:04 EST , Service support ,
--- NOTE | 2019-11-28 09:03 | CT_ITS ---
STUDY: CT CHEST WITH CONTRAST REASON FOR EXAM: Male, 54 years old. F/U SMALL CELL LUNG CA -- LAST CHEMO 06/2019, RAD TX 05/2019 -- +SMOKER RADIATION DOSAGE (If Supplied By Facility): CTDIvol = ( 22.81 ) mGy, DLP = ( 2927.86 ) mGycm TECHNIQUE: Transaxial imaging was performed following intravenous administration of IV 100mL Isovue-300. Multiplanar coronal and sagittal images were reformatted. Individualized dose optimization techniques were used for this CT. COMPARISON: CT chest September 21, 2019 FINDINGS: There is a left-sided portacatheter tip is in the right atrium. There is a persistent large effusion right chest with right upper lobe and especially right middle lobe patchy groundglass opacity and atelectasis crowding in the right hilum with associated bronchiectasis. Findings are similar to the prior study. The left lung is relatively clear. There is a peripheral nodule within the right upper lobe stable since prior study measuring 1.3 cm. The heart is of normal size. There is minimal coronary calcification. Normal mediastinum. There is a carotid appearance of the right hilum narrowed appearance of the right mainstem bronchus. Normal enhanced pulmonary arteries. There is atherosclerotic calcification of the aortic arch with tortuosity and elongation of the aortic arch and descending thoracic aorta. There are multi-level degenerative changes of the thoracic spine. There is no demonstrated abnormality of the visualized upper abdomen. CT/Chest WITH Contrast IMPRESSION: Relatively stable chest large right effusion stable right upper lobe nodule stable crowding ground glass opacities in the right upper lobe. Electronically Signed: Ree Ang MD at 9:20 EST Tel , Service support ,
--- NOTE | 2019-11-28 09:03 | CT_ITS ---
STUDY: CT SOFT TISSUE NECK WITH CONTRAST REASON FOR EXAM: Male, 54 years old. F/U SMALL CELL LUNG CA -- LAST CHEMO 06/2019, RAD TX 05/2019 -- +SMOKER RADIATION DOSAGE (If Supplied By Facility): CTDIvol = ( 22.81 ) mGy, DLP = ( 2927.86 ) mGycm TECHNIQUE: The patient was scanned in a multi-detector CT scanner. High resolution transaxial imaging was performed following intravenous administration of IV 100mL Isovue-300. Sagittal and coronal images were reconstructed. Individualized dose optimization techniques were used for this CT. COMPARISON: None. FINDINGS: Normal bilateral parotid glands. 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 Normal bilateral parapharyngeal spaces. Normal bilateral carotid spaces. Normal bilateral sublingual and submandibular glands and spaces. Normal visualized nasopharynx. Normal retropharyngeal space. Normal perivertebral space. There is enlargement and nodularity of the faucial tonsils. The right faucial tonsil demonstrates a 4 mm low-attenuation focus within. The visualized tongue, tongue base and oropharynx are normal. The visualized cervical lymph nodes (levels I-) are within normal size limits, and maintain normal morphology. There is no demonstrated solid or cystic mass lesion. There is no abnormal contrast enhancement. Normal epiglottis, bilateral vallecula and hypopharynx. The pre-epiglottic and paraglottic adipose spaces are normal. Normal visualized bilateral piriform sinuses, aryepiglottic folds, vocal cords, and arytenoid-cricoid articulations. Normal subglottic trachea. Normal bilateral lobes of the thyroid gland. There is extensive pleural thickening of the visualized right upper hemithorax. There is mucosal thickening of the right maxillary sinus. There is mucosal thickening and opacification of multiple ethmoid air cells bilaterally. The right frontal sinus is aplastic. There are diffuse degenerative changes of the mid to lower cervical spine. CT/Soft Tissue Neck WITH Contrast IMPRESSION: 1. Enlargement and nodularity of the tonsils. The right tonsil demonstrates a 4 mm low-attenuation focus within which is of unknown significance. 2. Extensive pleural thickening of the visualized right upper hemithorax. 3. Chronic pansinusitis. Aplastic right frontal sinus. 4. Diffuse degenerative changes of the mid to lower cervical spine. 5. No pathologically enlarged cervical nodes are evident. Electronically Signed: Malvin Vasquez MD at 22:23 EST , Service support ,
[2019-11-28 09:31] LABS: CREATININE FINGERSTICK 1.2 mg/dL (0.70-1.30); EGFR FINGERSTICK > 60.0000 mL/min (>60)
[2019-11-28] MEDS: 0.9% Saline Lock 10 ML Syringe IV (09:57)
== END ==
PROVIDERS: Referring Provider Internal Medicine Hematology & Oncology; Visit Provider Internal Medicine Hematology & Oncology
DX: C34.11 Malignant neoplasm of upper lobe, right bronchus or lung (principal); C77.9 Secondary and unspecified malignant neoplasm of lymph node, unspecified
CPT/HCPCS: 70491; 71260; 74160; Q9967; A4216

== ENCOUNTER → 2020-01-03 12:26 | Outpatient (CLI) | payer MEDICAID, SELFPAY ==
[2019-06-07 10:59] VITALS: BMI 33.7
[2019-09-26 11:29] VITALS: BMI 33.5
[2019-12-06 11:36] VITALS: BMI 34.4
--- NOTE | 2020-01-03 12:34 | MRI_ITS ---
STUDY: MRI BRAIN WITH AND WITHOUT CONTRAST REASON FOR EXAM: Male, 54 years old. Observation for mets, Small cell lung cancer. No complaints from patient TECHNIQUE: Standardized multiplanar fat and water weighted pulse sequences were obtained. 25ml Dotarem via port injection was administered for the contrast portion of the examination. COMPARISON: October 06, 2019 FINDINGS: Normal size of the ventricles and extra-axial spaces for the patient''s age. Normal white matter tracts of the supratentorial brain. Small perivascular space within the left basal ganglia. Normal right basal ganglia. Normal thalami. There is no extra-axial fluid accumulation. Normal flow voids within the major intracranial circulation suggesting patency by spin echo criteria. Normal venous enhancement. There is no enhancing intra-axial or extra-axial abnormality. Normal sella turcica, pituitary gland, infundibular stalk, optic chiasm and hypothalamus. Normal tectal plate and pineal gland. Normal midbrain, yuliana and medulla. Normal cerebellum. Normal basal cisterns. Normal bilateral temporal bones. Normal bilateral internal auditory canals. No demonstrated orbital abnormality, within the constraints of a routine brain study. Normal visualized paranasal sinuses. Normal calvarium and skull base. Normal visualized soft tissue structures. Normal visualized upper cervical spine. No significant change since prior exam MRI/Brain W/WO Contrast IMPRESSION: Normal unenhanced and enhanced MRI of the brain. Electronically Signed: Jamir Soto MD at 18:32 EST , Service support ,
[2020-01-03] MEDS: 0.9% Saline Lock 10 ML Syringe IV (13:30)
== END ==
PROVIDERS: Referring Provider Student in an Organized Health Care Education/Training Program; Visit Provider Student in an Organized Health Care Education/Training Program
DX: C34.90 Malignant neoplasm of unspecified part of unspecified bronchus or lung (principal)
CPT/HCPCS: 70553; A9575; A4216

== ENCOUNTER → 2020-01-31 09:47 | Outpatient (CLI) | payer MEDICAID, SELFPAY ==
[2019-06-07 10:59] VITALS: BMI 33.7
[2019-08-10 09:25] VITALS: BMI 32.1
[2019-12-06 11:36] VITALS: BMI 34.4
--- NOTE | 2020-01-31 15:29 | PFTCOMP_ITS ---
COMPLETE PULMONARY FUNCTION TEST INTERPRETATION Brief HPI: Patient is a 54 year old male, currently under the care of myself, who presents to [facility] for complete pulmonary function tests secondary to diagnosis of ALEX. Respiratory therapist reports good effort and reproducible results. Interpretation: Forced expiration spirometry shows no large airways obstructive ventilatory defect with an FEV1 of 69% predicted. There is no significant bronchodilator response by strict ATS criteria. Spirograms are of good quality and plateau normally. The respiratory flow volume loop shows decreased expiratory flow rates at high lung volumes consistent with small airways obstruction. Lung volumes by body plethysmography show decreased total lung capacity at 6.79 L, 83% predicted. All other lung volumes are reduced symmetrically. Diffusion capacity by carbon monoxide is decreased at 72% predicted. The airway resistance is elevated. Compared to previous pulmonary function tests from 10/05/2018, there is been a significant reduction in FVC, FEV1, TLC and DLCO by 24%, 24%, 18% and 34% respectively. Impression: Mild restrictive ventilatory defect with a symmetric reduction diffusing capacity and significant worsening compared to previous testing.
== END ==
PROVIDERS: PCP Nurse Practitioner Family; Referring Provider Internal Medicine Critical Care Medicine; Visit Provider Internal Medicine Critical Care Medicine
DX: J45.40 Moderate persistent asthma, uncomplicated (principal); G47.33 Obstructive sleep apnea (adult) (pediatric)
CPT/HCPCS: 94060; 94726; 94729

== ENCOUNTER → 2020-02-15 12:26 | Outpatient (CLI) | payer MEDICAID, SELFPAY ==
[2019-06-07 10:59] VITALS: BMI 33.7
[2019-12-06 11:36] VITALS: BMI 34.4
[2020-02-14 08:59] LABS: International Normalized Ratio 1.2; Partial Thromboplast Time 34.4 Seconds (24.1-36.2); Platelet Count 213 K/mm3 (150-450); Prothrombin Time (Protime)PT. 15.3 SECONDS (11.7-14.9)
--- NOTE | 2020-02-15 12:26 | US_ITS ---
PROCEDURE: ULTRASOUND GUIDED THORACENTESIS. DATE: February 15, 2020. INDICATION: Male, 54 years old. Right pleural effusion PHYSICIAN: Melquiades Stallings M.D. PROCEDURE: The risks, benefits, and alternatives to the procedure were explained to the patient. The specific risks of bleeding, infection, and pneumothorax requiring chest tube insertion were discussed and accepted. Written informed consent was obtained. Ultrasonographic evaluation of the right lower pleural space was carried out. An adequate pocket was identified. The patient was placed in the sitting, upright position. The overlying skin was prepped and draped in sterile fashion. 1% lidocaine was administered subcutaneously for local anesthesia. Under ultrasound guidance, a 5French thoracentesis needle/catheter system was advanced into the right posterior lower pleural fluid collection. Approximately 2100 mL of linda-colored fluid was drained. The catheter was removed, and a sterile dressing was applied. The patient tolerated the procedure well. A chest x-ray was ordered. US/Thoracentesis W US IMPRESSION: Ultrasound-guided right thoracentesis. Electronically Signed: Melquiades Stallnigs, at 13:39 EDT , Service support ,
[2020-02-15 12:42] VITALS: BP 120/70; BP 126/80; BP 128/67; BP 133/70; PULSE 63; PULSE 73; PULSE 74; PULSE 78; RESP 16; RESP 18; TEMP 36.7; O2SAT 96; O2SAT 97
--- NOTE | 2020-02-15 13:00 | RAD_ITS ---
STUDY: X-RAY CHEST REASON FOR EXAM: Male, 54 years old. Post thorax TECHNIQUE: AP inspiration and expiration views. COMPARISON: Comparison is made with prior study July 09, 2019. FINDINGS: The patient is status post right thoracentesis. There is no evidence of pneumothorax. Stable tenting of the right hemidiaphragm. RAD/Chest Insp/Exp 2 View IMPRESSION: Status post right thoracentesis. There is no evidence of pneumothorax. Electronically Signed: Melquiades Stallings, at 13:20 EDT , Service support ,
== END ==
PROVIDERS: Referring Provider Nurse Practitioner Acute Care; Visit Provider Nurse Practitioner Acute Care
DX: J90 Pleural effusion, not elsewhere classified (principal)
CPT/HCPCS: 32555; 36415; 71046; 85049; 85610; 85730

== ENCOUNTER → 2020-02-27 07:56 | Outpatient (CLI) | payer MEDICAID, SELFPAY ==
[2019-06-07 10:59] VITALS: BMI 33.7
[2019-12-06 11:36] VITALS: BMI 34.4
--- NOTE | 2020-02-27 07:57 | CT_ITS ---
STUDY: CT ABDOMEN WITH CONTRAST REASON FOR EXAM: Male, 54 years old. SURVEILLANCE OF LUNG CA-HAD CHEMO AND RAD TX, HTN, ASTHMA, A-FIB, DB, PREV STOMACH ULCER REPAIR, +SMOKER RADIATION DOSAGE (If Supplied By Facility): CTDIvol = ( 23.30 ) mGy, DLP = ( 1930.49 ) mGycm TECHNIQUE: Transaxial images were obtained post I.V. administration of IV 100mL OPTIRAY 320, and without oral contrast. Sagittal and coronal images were reconstructed. Individualized dose optimization techniques were used for this CT. COMPARISON: Comparison is made with prior examination dated November 28, 2019. FINDINGS: Moderate size right pleural effusion. This is essentially unchanged. Fluid is also seen in the right major fissure. The visualized portions of the heart are within normal limits. Normal liver. Normal gallbladder and extrahepatic biliary system. Normal spleen. Normal pancreas. There is a small, circumscribed, smooth, low attenuation right adrenal mass, consistent with an adrenal adenoma. This measures 1.7 cm. Normal left adrenal gland. Normal right kidney. Normal left kidney. Normal visualized stomach. Normal small intestine. Normal colon. The appendix is visualized and appears normal. There is diffuse atherosclerotic calcification of the abdominal aorta and major visceral branches, without a demonstrated aneurysm. Normal inferior vena cava. There is borderline retroperitoneal lymphadenopathy with enlarged nodes no greater than 10mm in the short axis diameter. Normal abdominal wall. There are degenerative changes of the visualized lumbar spine. CT/Abdomen WITH IV Contrast IMPRESSION: Moderate size right pleural effusion. There has been essentially no change since prior study. Electronically Signed: Melquiades Stallings, at 8:46 EDT , Service support ,
--- NOTE | 2020-02-27 07:57 | CT_ITS ---
STUDY: CT CHEST WITH CONTRAST REASON FOR EXAM: Male, 54 years old. SURVEILLANCE OF LUNG CA-HAD CHEMO AND RAD TX, HTN, ASTHMA, A-FIB, DB, PREV STOMACH ULCER REPAIR, +SMOKER RADIATION DOSAGE (If Supplied By Facility): CTDIvol = ( 23.30 ) mGy, DLP = ( 1930.49 ) mGycm TECHNIQUE: Transaxial imaging was performed following intravenous administration of IV 100mL OPTIRAY 320. Multiplanar coronal and sagittal images were reformatted. Individualized dose optimization techniques were used for this CT. COMPARISON: Comparison is made with prior examination dated November 28, 2019. FINDINGS: A left-sided portacatheter is seen with the tip in the superior vena cava. Stable moderate-sized right pleural effusion. Stable appearance of the bronchiectasis and scarring in the right upper lobe and right middle lobe most likely secondary to prior radiation and post radiation fibrosis. Stable 1.3 cm nodule in the peripheral aspect of the right upper lobe. The left lung remains clear. Normal heart and pericardium. Stable soft tissue fullness in the precarinal and subcarinal regions. Stable prominence of the right hilum with evidence of scarring in the region of the right hilum. Normal enhanced pulmonary arteries. There is atherosclerotic calcification of the aortic arch with tortuosity and elongation of the aortic arch and descending thoracic aorta. There are multi-level degenerative changes of the thoracic spine. The findings in the abdomen were discussed on the dedicated CT scan of the abdomen examination. CT/Chest WITH Contrast IMPRESSION: Essentially stable examination with evidence of a right pleural effusion with post radiation scarring in the right upper and right lower lobes as described. Stable 1.3 cm nodule in the peripheral lateral aspect of the right upper lobe. Electronically Signed: Melquiades Stallings, at 8:52 EDT , Service support ,
[2020-02-27 08:21] LABS: EGFR FINGERSTICK > 60.0000 mL/min (>60)
[2020-02-27] MEDS: 0.9% Saline Lock 10 ML Syringe IV (08:25)
== END ==
PROVIDERS: Referring Provider Internal Medicine Hematology & Oncology; Visit Provider Internal Medicine Hematology & Oncology
DX: C34.11 Malignant neoplasm of upper lobe, right bronchus or lung (principal); C77.9 Secondary and unspecified malignant neoplasm of lymph node, unspecified; E27.9 Disorder of adrenal gland, unspecified
CPT/HCPCS: 71260; 74160; Q9967; A4216

== ENCOUNTER → 2020-03-02 08:02 | Outpatient (CLI) | payer MEDICAID, SELFPAY ==
[2019-06-07 10:59] VITALS: BMI 33.7
[2019-12-06 11:36] VITALS: BMI 34.4
--- NOTE | 2020-03-02 08:06 | NM_ITS ---
CLINICAL: 54-year-old male with reported history of primary lung carcinoma status post recent traumatic fall. WHOLE BODY 99m Tc MDP RADIONUCLIDE BONE SCINTIGRAPHY COMPARISON: CT of the chest abdomen and pelvis reports 02/27/2020 FINDINGS: Following the intravenous administration of 26.0 mCi of 99m Tc MDP, whole body bone images reveal: 1. Increased radiopharmaceutical concentration is identified in the acromioclavicular compartments of both shoulders, patellofemoral compartments of the right and left knees, medial tibiofemoral compartment of the left knee, the bilateral mid foot and right ankle. 2. The remaining skeletal structures are scintigraphically unremarkable with normal-appearing renal images and urinary bladder activity identified. NM/Bone Scan Whole Body IMPRESSION: 1. The increase in radiopharmaceutical concentration identified in the bilateral shoulders, knees bilaterally, right-left mid foot and right ankle is commensurate with degenerative arthritis. 2. There is no definitive typical scintigraphic evidence of diffuse axial skeletal metastatic disease or trauma-fracture on the current examination. Electronically Signed: Pb Zamarripa DO at 9:33 EDT Tel , Service support ,
== END ==
PROVIDERS: Referring Provider Internal Medicine Hematology & Oncology; Visit Provider Internal Medicine Hematology & Oncology
DX: C34.11 Malignant neoplasm of upper lobe, right bronchus or lung (principal); C77.9 Secondary and unspecified malignant neoplasm of lymph node, unspecified; E27.9 Disorder of adrenal gland, unspecified
CPT/HCPCS: 78306

== ENCOUNTER → 2020-04-02 09:27 | Outpatient (CLI) | payer MEDICAID, SELFPAY ==
[2019-06-07 10:59] VITALS: BMI 33.7
[2019-12-06 11:36] VITALS: BMI 34.4
[2020-03-06 13:31] VITALS: BMI 36.3
--- NOTE | 2020-04-02 09:32 | MRI_ITS ---
STUDY: MRI BRAIN WITH AND WITHOUT CONTRAST REASON FOR EXAM: Male, 54 years old. recheck for mets, small cell lung ca TECHNIQUE: Standardized multiplanar fat and water weighted pulse sequences were obtained. IV Dotarem 25ml was administered for the contrast portion of the examination. COMPARISON: 01/03/2020 FINDINGS: Normal size of the ventricles and extra-axial spaces for the patient''s age. Normal white matter tracts of the supratentorial brain. There is no evidence for recent intracranial ischemia or other cause of cytotoxic edema on diffusion weighted imaging (DWI). Normal T2* images of the brain without demonstrated susceptibility artifact. There is no demonstrated hemosiderin stain. Normal bilateral basal ganglia. Normal thalami. There is no extra-axial fluid accumulation. Normal flow voids within the major intracranial circulation suggesting patency by spin echo criteria. Normal venous enhancement. There is no enhancing intra-axial or extra-axial abnormality. Normal sella turcica, pituitary gland, infundibular stalk, optic chiasm and hypothalamus. Normal tectal plate and pineal gland. Normal midbrain, yuliana and medulla. Normal cerebellum. Normal basal cisterns. Normal bilateral temporal bones. Normal bilateral internal auditory canals. No demonstrated orbital abnormality, within the constraints of a routine brain study. Normal visualized paranasal sinuses. Normal calvarium and skull base. Normal visualized soft tissue structures. Normal visualized upper cervical spine. MRI/Brain W/WO Contrast IMPRESSION: Normal unenhanced and enhanced MRI of the brain. No MR evidence of metastatic disease. Electronically Signed: Pb Troncoso MD at 11:05 EDT Tel , Service support ,
[2020-04-02] MEDS: 0.9% Saline Lock 10 ML Syringe IV (10:20)
== END ==
PROVIDERS: Referring Provider Student in an Organized Health Care Education/Training Program; Visit Provider Student in an Organized Health Care Education/Training Program
DX: C34.90 Malignant neoplasm of unspecified part of unspecified bronchus or lung (principal)
CPT/HCPCS: 70553; A9575; A4216

== ENCOUNTER → 2020-07-05 09:38 | Outpatient (CLI) | payer MEDICAID, SELFPAY ==
[2019-06-07 10:59] VITALS: BMI 33.7
[2020-03-06 13:31] VITALS: BMI 36.3
[2020-07-05 08:57] VITALS: BMI 38.5
--- NOTE | 2020-07-05 09:38 | MRI_ITS ---
STUDY: MRI BRAIN WITH AND WITHOUT CONTRAST REASON FOR EXAM: Male, 54 years old. follow up monitoring for brain mets, hx small cell lung ca TECHNIQUE: Standardized multiplanar fat and water weighted pulse sequences were obtained. IV Yes YES was administered for the contrast portion of the examination. COMPARISON: 04/02/2020 FINDINGS: Normal size of the ventricles and extra-axial spaces for the patient''s age. Normal white matter tracts of the supratentorial brain. There is no evidence for recent intracranial ischemia or other cause of cytotoxic edema on diffusion weighted imaging (DWI). Normal T2* images of the brain without demonstrated susceptibility artifact. There is no demonstrated hemosiderin stain. Normal bilateral basal ganglia. Normal thalami. There is no extra-axial fluid accumulation. Normal flow voids within the major intracranial circulation suggesting patency by spin echo criteria. Normal venous enhancement. There is no enhancing intra-axial or extra-axial abnormality. Normal sella turcica, pituitary gland, infundibular stalk, optic chiasm and hypothalamus. Normal tectal plate and pineal gland. Normal midbrain, yuliana and medulla. Normal cerebellum. Normal basal cisterns. Normal bilateral temporal bones. Normal bilateral internal auditory canals. No demonstrated orbital abnormality, within the constraints of a routine brain study. Normal visualized paranasal sinuses. Normal calvarium and skull base. Normal visualized soft tissue structures. Normal visualized upper cervical spine. MRI/Brain W/WO Contrast IMPRESSION: Normal unenhanced and enhanced MRI of the brain. No MR evidence metastatic disease. Electronically Signed: Pb Troncoso MD at 12:15 EDT Tel , Service support ,
--- NOTE | 2020-07-05 09:38 | RAD_ITS ---
STUDY: X-RAY CHEST REASON FOR EXAM: Male, 54 years old. right side pleural effusion TECHNIQUE: PA and lateral views of the chest. COMPARISON: 02/15/2020 FINDINGS: Left internal jugular chest port which is unchanged. The lungs are clear and expanded. Moderate size right-sided pleural effusion. Normal size heart. Normal mediastinum and inge. Normal visualized pulmonary arteries. Normal visualized aortic arch and descending thoracic aorta. Normal visualized thoracic spine. Normal visualized ribs, clavicles, and shoulders. There is no demonstrated abnormality of the visualized soft tissue structures of the upper abdomen. RAD/Chest PA and Lateral IMPRESSION: Moderate right pleural effusion. Electronically Signed: Pb Troncoso MD at 17:13 EDT Tel , Service support ,
[2020-07-05] MEDS: 0.9% Saline Lock 10 ML Syringe IV (11:46)
[2020-07-06 07:53] LABS: SARS-COV-2 TOTAL ABS Nonreactive (Nonreactive)
== END ==
PROVIDERS: Internal Medicine Critical Care Medicine; Referring Provider Student in an Organized Health Care Education/Training Program; Visit Provider Student in an Organized Health Care Education/Training Program
DX: C34.11 Malignant neoplasm of upper lobe, right bronchus or lung (principal); J90 Pleural effusion, not elsewhere classified
CPT/HCPCS: 70553; 71046; 86769; A9575; A4216

== ENCOUNTER → 2020-07-13 11:59 | Outpatient (CLI) | payer MEDICAID, SELFPAY ==
[2019-06-07 10:59] VITALS: BMI 33.7
[2020-07-05 08:57] VITALS: BMI 38.5
--- NOTE | 2020-07-13 12:00 | US_ITS ---
PROCEDURE: ULTRASOUND GUIDED THORACENTESIS. DATE: 07/13/2020. INDICATION: Male, 54 years old. Right pleural effusion. PHYSICIAN: Melquiades Stallings M.D. PROCEDURE: The risks, benefits, and alternatives to the procedure were explained to the patient. The specific risks of bleeding, infection, and pneumothorax requiring chest tube insertion were discussed and accepted. Written informed consent was obtained. Ultrasonographic evaluation of the right lower pleural space was carried out. An adequate pocket was identified. The patient was placed in the sitting, upright position. The overlying skin was prepped and draped in sterile fashion. 1% lidocaine was administered subcutaneously for local anesthesia. Under ultrasound guidance, a 5 Mongolian thoracentesis needle/catheter system was advanced into the right posterior lower pleural fluid collection. Approximately 1700 mL of linda and blood-tinged fluid was drained. The catheter was removed, and a sterile dressing was applied. The patient tolerated the procedure well. A chest x-ray was ordered. US/Thoracentesis W US IMPRESSION: Ultrasound-guided right thoracentesis. Electronically Signed: Melquiades Stallings, at 13:35 EDT , Service support ,
[2020-07-13 12:25] VITALS: BP 107/70; BP 96/57; BP 99/60; PULSE 69; PULSE 83; PULSE 85; RESP 18; RESP 20; TEMP 37.4; O2SAT 96; O2SAT 97
--- NOTE | 2020-07-13 12:50 | RAD_ITS ---
STUDY: X-RAY CHEST REASON FOR EXAM: Male, 54 years old. Post thoracentesis INS and EXP TECHNIQUE: AP inspiration and expiration views. COMPARISON: Comparison is made with prior study dated 07/05/2020. FINDINGS: A left-sided portacatheter is seen with the tip at the junction of the superior vena cava and right atrium. The patient is status post right thoracentesis. There is no evidence of pneumothorax. Residual pleural parenchymal changes at the right lung base. RAD/Chest Insp/Exp 2 View IMPRESSION: Status post right thoracentesis. There is no evidence of pneumothorax. Electronically Signed: Melquiades Stallings, at 13:13 EDT , Service support ,
== END ==
PROVIDERS: Referring Provider Internal Medicine Critical Care Medicine; Visit Provider Internal Medicine Critical Care Medicine
DX: J90 Pleural effusion, not elsewhere classified (principal)
CPT/HCPCS: 32555; 71046

== ENCOUNTER → 2020-07-24 07:38 | Outpatient (CLI) | payer MEDICAID, SELFPAY ==
[2019-06-07 10:59] VITALS: BMI 33.7
[2020-07-05 08:57] VITALS: BMI 38.5
--- NOTE | 2020-07-24 07:39 | ECHOCS_ITS ---
Reason For Study: DYSPNEA Procedure This was a 2D Doppler, Color Flow transthoracic echocardiogram. The study was technically difficult. Due to body habitus. Contrast injection was performed. Exam performed in department. Left Ventricle Normal LV size. Left ventricular systolic function is normal. The estimated ejection fraction is 60 %. No regional wall motion abnormalities noted. Right Ventricle Normal RV size. Normal systolic function. Atria The left atrium is moderately enlarged. Normal right atrium. Mitral Valve Mitral valve not well visualized. Tricuspid Valve The tricuspid valve is not well visualized. Aortic Valve The aortic valve is not well visualized. Pulmonic Valve The pulmonic valve is not well visualized. Great Vessels Normal aortic root. The pulmonary artery is normal size. Normal inferior vena cava. Pericardium/Pleural No pericardial effusion. Medication 22 gauge I.V. with prn adaptor inserted into right arm. Diluted definity 3.0ml given slow IV push to enhance endocardial definition. MMode/2D Measurements & Calculations LVIDd: 5.7 cm IVSd: 1.3 cm Ao root diam: 3.6 cm LVIDs: 4.2 cm LVPWd: 1.3 cm RVDd: 4.2 cm FS: 26.4 % LAV(MOD-bp): 92.0 ml LA A4 area: 27.1 cm2 LA dimension(2D): 4.8 cm LAV(MOD-bp) Indexed: 34.2 ml/m2 LAV(MOD-sp2): 92.4 ml LAV(MOD-sp4): 90.8 ml Doppler Measurements & Calculations MV E max raad: 120.6 cm/sec Ao V2 max: 112.3 cm/sec LV V1 max: 75.8 cm/sec Ao max P.0 mmHg LV V1 max P.3 mmHg PA V2 max: 81.9 cm/sec Interpretation Summary Normal LV size. Left ventricular systolic function is normal. The estimated ejection fraction is 60 %. Contrast injection was performed. The study was technically limited. The study was technically difficult. Ordering Physician: Regan Schaefer Referring Physician: Olga [facility] Performed By: Gardenia Mayers RDCS, RVT
--- NOTE | 2020-07-24 07:50 | RAD_ITS ---
STUDY: X-RAY CHEST REASON FOR EXAM: Male, 54 years old. PLEURAL EFF., SOB, PAIN TECHNIQUE: PA and lateral views of the chest. COMPARISON: Comparison is made with prior study dated 07/13/2020. FINDINGS: A left-sided portacatheter is seen with the tip at the junction of the superior vena cava and right atrium. Since prior study, there has been a progression of the right pleural effusion with right basilar infiltration. There is evidence of a decreased bronchovascular markings in the upper lobes suggestive of emphysematous changes. Normal size heart. Normal mediastinum and inge. Normal visualized pulmonary arteries. There is atherosclerotic calcification of the aortic arch with tortuosity. There are diffuse degenerative changes of the visualized thoracic spine. Normal visualized ribs, clavicles, and shoulders. There is no demonstrated abnormality of the visualized soft tissue structures of the upper abdomen. RAD/Chest PA and Lateral IMPRESSION: Increasing pleural-parenchymal changes on the right side as compared to prior study. The remainder the examination is unchanged. Electronically Signed: Melquiades Stallings, at 8:18 EDT , Service support ,
== END ==
PROVIDERS: Referring Provider Internal Medicine Cardiovascular Disease; Visit Provider Internal Medicine Cardiovascular Disease
DX: I48.11 Longstanding persistent atrial fibrillation (principal); R06.00 Dyspnea, unspecified
CPT/HCPCS: 71046; 93306; Q9957; A4216; C8929

== ENCOUNTER → 2020-07-27 12:50 | Outpatient (CLI) | payer MEDICAID, SELFPAY ==
[2019-06-07 10:59] VITALS: BMI 33.7
[2020-07-05 08:57] VITALS: BMI 38.5
--- NOTE | 2020-07-27 | FLU_PTH ---
PATIENT: RONALDO ADAM LOC: [facility]#:[id number] AGE/SX: 60/M ROOM: RE07/27/[address]: Dr. Cristiana Johnson MD : 1965 BED: DIS: SPEC #: [id number] RECD: 07/27/20 13:47 STATUS: WALE KODI #: [id number] WILFREDO: 07/27/20 00:[address]: Cristiana Johnson DEPT: CYTOLOGY RECD BY: Joselito Ling ENTERED: 07/30/20 09:03 SP TYPE: Fluid OTHR DR: Galina Darden, LAY OUT MAKER-C [facility] Tissues: THORACIC FLUID Procedures: Special Stain Group II Surgery Specimen Level IV Cytospin Fluid HEADER OPERATION: Ultrasound-guided right thoracentesis PRE-OP DIAGNOSIS: Pleural effusion TISSUE SUBMITTED: Thoracentesis fluid for cytology DIAGNOSIS CYTOLOGY Thoracentesis fluid for cytology (cytospin and cell block): Rare atypical cells with degenerative changes noted. See comment. SJ:terra 07/31/20 COMMENT Please make reference to previous specimens ([id number]) EBUS, aspiration, site 7 with diagnosis of positive for malignant cells consistent with small cell carcinoma and ([id number]) thoracentesis fluid for cytology with diagnosis of negative for malignant cells. Clinical correlation and appropriate follow up are necessary. Case has been reviewed in consultation with Dr. Post who concurs with the above diagnosis. IDC:AM CYTOLOGY STUDY Slides are reviewed. CYTOLOGY GROSS Received is 40 ml of red cloudy fluid labeled with the patient's name and and designated per the requisition as thoracentesis. Submitted for cytology preparation including cell block. / terra 07/30/20 TC:5 CPT: 86269, 70674
--- NOTE | 2020-07-27 12:50 | US_ITS ---
PROCEDURE: ULTRASOUND GUIDED THORACENTESIS. DATE: 07/27/2020. INDICATION: Male, 54 years old. Right pleural effusion. PHYSICIAN: Melquiades Stallings M.D. PROCEDURE: The risks, benefits, and alternatives to the procedure were explained to the patient. The specific risks of bleeding, infection, and pneumothorax requiring chest tube insertion were discussed and accepted. Written informed consent was obtained. Ultrasonographic evaluation of the right lower pleural space was carried out. An adequate pocket was identified. The patient was placed in the sitting, upright position. The overlying skin was prepped and draped in sterile fashion. 1% lidocaine was administered subcutaneously for local anesthesia. Under ultrasound guidance, a 5 Yoruba thoracentesis needle/catheter system was advanced into the right posterior lower pleural fluid collection. Approximately 70 mL of blood tinged fluid was drained. The catheter was removed, and a sterile dressing was applied. A specimen was collected and sent to the laboratory for analysis, as requested by the referring clinician. The patient tolerated the procedure well. A chest x-ray was ordered. US/Thoracentesis W US IMPRESSION: Ultrasound-guided right thoracentesis. Electronically Signed: Melquiades Stallings, at 14:10 EDT , Service support ,
[2020-07-27 13:09] LABS: Absolute Lymphocyte Count 0.87 X10^3/uL (0.83-4.51); Basophil# 0.02 X10^3/uL; Basophil% 0.3 % (0-1); Eosinophil# 0.15 X10^3/uL; Eosinophils% 2.3 % (0-5); Hematocrit 40.7 % (40-54); Hemoglobin 13.3 g/dL (13.0-16.5); Lymphocyte # 0.87 X10^3/ul (4.0); Lymphocyte % 13.4 % (19-41); Mean Corp Hgb Conc 32.7 g/dL (32-36); Mean Corpuscular Hgb 30.4 pg (27.0-32.0); Mean Corpuscular Volume 93.1 fL (80-94); Mean Platelet Vol. 8.8 fl (6.2-12.0); Monocyte# 0.43 X10^3/uL; Monocyte% 6.6 % (0-10); NRBC Flagged by Analyzer 0 % (0-5); Neutrophil # 4.98 X10^3/uL (2.7-7.7); Neutrophil % 76.9 % (47-70); Platelet Count 265 K/mm3 (150-450); RBC Distribution Width SD 47.8 fl (35.1-43.9); Red Blood Count 4.37 M/mm3 (4.6-6.2); White Blood Count 6.5 K/mm3 (4.4-11.0)
[2020-07-27 13:19] LABS: International Normalized Ratio 1.1; Prothrombin Time (Protime)PT. 14.1 SECONDS (11.7-14.9)
[2020-07-27 13:20] LABS: Partial Thromboplast Time 29.6 Seconds (24.1-36.2)
--- NOTE | 2020-07-27 13:30 | RAD_ITS ---
STUDY: X-RAY CHEST REASON FOR EXAM: Male, 54 years old. POST THORA TECHNIQUE: AP inspiration and expiration views. COMPARISON: Comparison is made with prior examination dated 07/24/2020. FINDINGS: A left-sided portacatheter is seen with the tip at the junction of the superior vena cava and right atrium. The patient is status post right thoracentesis. Residual pleural parenchymal changes at the right lung base. No evidence of pneumothorax. RAD/Chest Insp/Exp 2 View IMPRESSION: Residual pleural parenchymal changes at the right lung base. No evidence of pneumothorax. Electronically Signed: Melquiades Stallings, at 13:56 EDT , Service support ,
[2020-07-27 13:50] LABS: Cytology, Body Fluid / CSF SEE PATHOLOGY REPORT
[2020-07-27 13:57] VITALS: BP 100/47; BP 103/60; BP 104/51; BP 98/50; BP 98/57; PULSE 68; PULSE 77; PULSE 81; PULSE 86; PULSE 90; RESP 14; RESP 16; TEMP 38.6; O2SAT 95
== END ==
PROVIDERS: Referring Provider Internal Medicine Hematology & Oncology; Visit Provider Internal Medicine Hematology & Oncology
DX: Z01.818 Encounter for other preprocedural examination (principal); C34.11 Malignant neoplasm of upper lobe, right bronchus or lung; J90 Pleural effusion, not elsewhere classified; Z79.01 Long term (current) use of anticoagulants
CPT/HCPCS: 32555; 36415; 71046; 85025; 85610; 85730; 88108; 88305; 88313

== ENCOUNTER 2020-08-13 09:46 | Emergency (ER) | payer MEDICAID, SELFPAY ==
[2019-06-07 10:59] VITALS: BMI 33.7
[2020-08-13 09:46] VITALS: BMI 38.5
[2020-08-13 09:48] VITALS: BP 141/63; PULSE 92; RESP 17; TEMP 37.3; O2SAT 97; BMI 36.9
[2020-08-13 10:27] VITALS: BP 141/63; PULSE 92; RESP 17; TEMP 37.3; O2SAT 97
--- NOTE | 2020-08-13 10:40 | CT_ITS ---
STUDY: CT ABDOMEN AND PELVIS WITHOUT CONTRAST REASON FOR EXAM: Male, 54 years old. ABD PAIN SINCE JUL 13, FEVER SINCE THU, BLOOD IN STOOL. RADIATION DOSAGE (If Supplied By Facility): CTDIvol = ( 23.98 ) mGy, DLP = ( 1330.10 ) mGycm TECHNIQUE: Transaxial images were obtained from the dome of the diaphragm to the symphysis pubis without oral contrast, and without intravenous contrast. Sagittal and coronal images were reconstructed. Individualized dose optimization techniques were used for this CT. COMPARISON: Comparison is made with prior study dated 02/27/2020. FINDINGS: Small joint effusion with air-fluid levels seen within it. This may represent either infection or changes due to a recent thoracentesis. There is also evidence of infiltration with bronchiectasis in the right middle lobe and right lower lobes. Coronary artery calcifications. Normal liver. Normal gallbladder and extrahepatic biliary system. Normal spleen. Normal pancreas. There is a small, circumscribed, smooth, low attenuation right adrenal mass, consistent with an adrenal adenoma. This is unchanged. Normal left adrenal gland. Normal right kidney. Normal left kidney. Normal visualized stomach. Normal small intestine. Normal colon. The appendix is visualized and appears normal. There is diffuse atherosclerotic calcification of the abdominal aorta and its major visceral branches, without a demonstrated aneurysm. Normal inferior vena cava. There is borderline retroperitoneal lymphadenopathy with enlarged nodes no greater than 10mm in the short axis diameter. Contracted urinary bladder with thickening of the bladder wall.. There are prostatic calcifications. Normal abdominal wall. There are diffuse degenerative changes of the visualized lumbar spine. CT/Abdomen/Pelvis without Cont IMPRESSION: Small right pleural effusion with multiple air-fluid levels suggestive of either infection versus recent thoracentesis. Infiltration in the right middle lobe and right lower lobe. The remainder of the examination is unchanged. Electronically Signed: Melquiades Stallings, at 11:20 EDT , Service support ,
--- NOTE | 2020-08-13 10:52 | ED.VIS.GEN ---
History of Present Illness Chief Complaint: Abd Pain Narrative: Patient presents with abdominal pain that is right upper quadrant that is been somewhat chronic but worse recently he also has some sweats with it and subjective fevers. No documented fevers. No radiation to the back. He does have chronic pleural effusion, he just had a PET scan and is due to get the results in the next 15 minutes but did not go to his appointment because of his abdominal pain. The pain is right upper quadrant. Some epigastric pain. No lower abdominal pain no urinary symptoms. Currently no dyspnea. He continues to smoke. Past Medical History - Allergies and Home Meds Allergies/Adverse Reactions: Allergies pioglitazone HCl [From Actos] Adverse Reaction (Severe, Verified 08/13/20 09:47) Other WEIGHT GAIN [facility] - Past Medical History: - - Hypertension, hypercholesterolemia, diabetes, diet controlled Surgical History: tonsillectomy Smoking Status: Current every day smoker Review of Systems General: Reports: Fever, Subjective Eyes: Denies: Visual changes - bilaterally ENT: Denies: Rhinorrhea, Sore throat Cardiovascular: Denies: Chest pain Respiratory: Denies: Dyspnea, Cough Gastrointestinal: Reports: Abdominal pain. Denies: Nausea, Vomiting, Diarrhea, Constipation Genitourinary: Denies: Dysuria Musculoskeletal: Denies: Myalgias Skin: Denies: Rash, Abscess Neurological: Denies: Headache, Weakness Endocrine: Denies: Polyuria Hematologic: Denies: Easy bruising Physical Exam Vital Signs/Narrative: Vital Signs Temp Pulse Resp BP Pulse Ox 08/13/20 10:27 99.2 F H 92 17 141/63 H 97 08/13/20 09:48 99.2 F H 92 17 141/63 H 97 General: Obese, - - Appears chronically ill. He does not appear in acute distress ENT: Moist mucous membranes Neck: Supple, Nontender Cardiovascular: Regular rate, Regular rhythm, No murmurs Respiratory: - - Diminished breath sounds in the right lung region. Otherwise speaks in full sentences with no respiratory distress. He is not tachypneic. Abdomen: - - Soft, there is epigastric and right upper quadrant abdominal pain without any guarding or rebound. No lower abdominal pain Back: Nontender. Negative for: CVA tenderness Extremities: Nontender Skin: Normal color Neurological: Alert, Normal Strength, Normal Sensation Diagnostic/Tx/Re-eval - Medical Decision Making The ED work-up is negative. I did review his PET scan, I does show metastatic disease. I discussed with oncology they were able to accommodate and he has an appointment at 3 which is 2-1/2 hours from now. He tells me he will follow-up with them in 2-1/2 hours. Otherwise he is stable for discharge. ED Disposition - Plan for ED Patient: Disposition: LEFT WITHOUT BEING SEEN Diagnosis: Abdominal pain, Metastatic disease Instructions: ED Unknown Causes of Abdominal Pain Male Additional Instructions: Follow-up with your oncologist at 3 PM today.
[2020-08-13 11:03] LABS: Absolute Lymphocyte Count 0.45 X10^3/uL (0.83-4.51); Absolute Neutrophil Count 2.9 X10^3/uL (2.0-7.7); Basophil# 0.01 X10^3/uL; Basophil% 0.2 % (0-1); Eosinophil# 0.06 X10^3/uL; Eosinophils% 1.5 % (0-5); Hematocrit 40.1 % (40-54); Hemoglobin 13.3 g/dL (13.0-16.5); Lymphocyte # 0.45 X10^3/ul (4.0); Mean Corp Hgb Conc 33.2 g/dL (32-36); Mean Corpuscular Volume 90.5 fL (80-94); Mean Platelet Vol. 9.3 fl (6.2-12.0); Monocyte# 0.63 X10^3/uL; Monocyte% 15.4 % (0-10); NRBC Flagged by Analyzer 0 % (0-5); Neutrophil # 2.93 X10^3/uL (2.7-7.7); Neutrophil % 71.4 % (47-70); POSITIVE DIFFERENTIAL YES; Platelet Count 224 K/mm3 (150-450); RBC Distribution Width SD 46.5 fl (35.1-43.9); Red Blood Count 4.43 M/mm3 (4.6-6.2); White Blood Count 4.1 K/mm3 (4.4-11.0)
[2020-08-13 11:09] LABS: Differential Indicated SCAN CRITERIA MET
[2020-08-13 11:22] LABS: ALB/GLOB Ratio 0.6 RATIO (0.9-2.4); AST(SGOT) 14 U/L (15-37); Alanine Aminotransfer ALT/SGPT 15 U/L (16-61); Albumin, Serum 2.8 g/dL (3.2-5.0); Alkaline Phosphatase 59 U/L (45-117); Anion Gap 4 (5-15); BUN 10 mg/dL (7-18); BUN/Creat Ratio 10.9 RATIO (10-20); Chloride 107 mmol/L (98-107); Creatinine, Serum 0.92 mg/dL (0.70-1.30); EST Glomerular Filtration Rate 91 mL/min (>60); Est Glom Filt Rate - Afr Amer 110 mL/min (>60); Estimated Creatinine Clearance 111.38 ml/min; Globulin 4.5 g/dL (2.2-4.2); Glucose 104 mg/dL (74-106); Lipase 105 U/L (73-393); Potassium 3.7 mmol/L (3.5-5.1); Protein, Total 7.3 g/dL (6.4-8.2); Sodium Level 138 mmol/L (136-145)
[2020-08-13 11:57] LABS: Differential Comment SCANNED
[2020-08-13 12:43] VITALS: PULSE 87; RESP 17; TEMP 37.4; O2SAT 98
[2020-08-14 13:02] LABS: Pathologist Review Reviewed
--- NOTE | 2021-03-22 09:13 | ONC.CONS.INP ---
Subjective Chief Complaint: 3 month f/u Past Medical History: Chronic Problems (Last Reviewed 03/15/21 @ 08:23 by Shabana Garcia) Anxiety and depression (Chronic) Dyspnea (Chronic) Longstanding persistent atrial fibrillation (Chronic) Essential (primary) hypertension (Chronic) Hyperlipidemia (Chronic) Small cell lung cancer, right upper lobe (Chronic) Regional lymph node metastasis present (Chronic) Consolidation of right lower lobe of lung (Chronic) Pleural effusion, right (Chronic) Adrenal nodule (Chronic) Chemotherapy induced neutropenia (Chronic) ALEX (obstructive sleep apnea) (Chronic) CPAP 18 cm of water Nicotine dependence (Chronic) 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 classification (Chronic) 76% predicted Past Medical/Surgical History: Past Medical History (Last Reviewed 03/15/21 @ 08:23 by Shabana Garcia) Dyspnea (Chronic) Longstanding persistent atrial fibrillation (Chronic) Essential (primary) hypertension (Chronic) Hyperlipidemia (Chronic) Small cell lung cancer, right upper lobe (Chronic) Regional lymph node metastasis present (Chronic) Consolidation of right lower lobe of lung (Chronic) Pleural effusion, right (Chronic) Adrenal nodule (Chronic) Chemotherapy induced neutropenia (Chronic) ALEX (obstructive sleep apnea) (Chronic) Nicotine dependence (Chronic) 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 classification (Chronic) Abnormal PET scan of colon (Chronic) Asthma, moderate persistent (Chronic) Diabetes mellitus (Chronic) Lung cancer (Chronic) Marijuana abuse (Chronic) Nocturia (Chronic) Obesity (Chronic) Radiation dermatitis (Chronic) Rectal pain (Chronic) Persistent atrial fibrillation (Inactive) Past Surgical History (Last Reviewed 03/15/21 @ 08:23 by Shabana Garcia) History of cardioversion (Resolved 03/2016) History of stomach ulcers (Resolved) History of thoracentesis (Resolved 01/2020) History of tonsillectomy (Resolved) PORT PLACEMENT (Resolved) Pilonidal cyst (Resolved ~1986) - Social History Smoking Status: Former smoker Allergies/Adverse Reactions: Allergy/AdvReac Type Severity Reaction Status Date / Time pioglitazone HCl [From Actos] AdvReac Severe Other Verified 03/15/21 08:20 Vital Signs Temperature 99.3 F H 08/13/20 12:43 Temperature Source Temporal 08/13/20 10:27 Pulse Rate 87 08/13/20 12:43 Respiratory Rate 17 08/13/20 12:43 Blood Pressure 141/63 H 09/14/20 10:27 Blood Pressure Mean 89 08/13/20 10:27 Pulse Ox 98 08/13/20 12:43 Oxygen Delivery Method Room Air 08/13/20 10:27 Diagnostic Data: Diagnostic Data Abdomen/Pelvis CT 08/13/20 10:40 IMPRESSION: Small right pleural effusion with multiple air-fluid levels suggestive of either infection versus recent thoracentesis. Infiltration in the right middle lobe and right lower lobe. The remainder of the examination is unchanged. Electronically Signed: Melquiades Stallings, at 11:20 EDT , Service support , Assessment and Plan Primary Care Provider: [facility] Referring Provider:
== END 2020-08-13 12:44 | disposition left against medical advice (07) ==
PROVIDERS: Emergency Provider Emergency Medicine
DX: R10.11 Right upper quadrant pain (principal); C79.9 Secondary malignant neoplasm of unspecified site; J90 Pleural effusion, not elsewhere classified; I10 Essential (primary) hypertension; E11.9 Type 2 diabetes mellitus without complications; E78.00 Pure hypercholesterolemia, unspecified; Z79.899 Other long term (current) drug therapy; F17.200 Nicotine dependence, unspecified, uncomplicated
CPT/HCPCS: 74176; 80053; 83690; 85025; 99283; A4216

== ENCOUNTER → 2020-08-13 17:50 | Outpatient (CLI) | payer MEDICAID, SELFPAY ==
[2019-06-07 10:59] VITALS: BMI 33.7
[2020-08-13 09:48] VITALS: BMI 36.9
[2020-08-14 00:27] LABS: Probe Check PASS; Specimen Processing Control PASS
== END ==
PROVIDERS: Referring Provider Internal Medicine Hematology & Oncology; Visit Provider Internal Medicine Hematology & Oncology
DX: Z01.812 Encounter for preprocedural laboratory examination (principal); R50.9 Fever, unspecified; R10.11 Right upper quadrant pain; C79.9 Secondary malignant neoplasm of unspecified site; J90 Pleural effusion, not elsewhere classified; I10 Essential (primary) hypertension; E11.9 Type 2 diabetes mellitus without complications; E78.00 Pure hypercholesterolemia, unspecified; Z79.899 Other long term (current) drug therapy; F17.200 Nicotine dependence, unspecified, uncomplicated
CPT/HCPCS: 74176; 80053; 83690; 85025; 87635; 99283; C9803; A4216; U0003

== ENCOUNTER 2020-08-17 10:02 | Day surgery (SDC) | payer MEDICAID, SELFPAY ==
[2019-06-07 10:59] VITALS: BMI 33.7
--- NOTE | 2020-08-17 | IMM_PTH ---
PATIENT: RONALDO ADAM LOC: EN U#:[id number] AGE/SX: 54/M ROOM: RE08/17/[address]: Dr. Pee Castillo MD : 1965 BED: DIS: 08/17/2020 SPEC #: [id number] RECD: 08/20/20 13:12 STATUS: WALE REQ #: [id number] WILFREDO: 08/17/20 00:[address]: Pee Castillo DEPT: IMMUNOHISTOCHEMISTRY RECD BY: Marybeth Olguin ENTERED: 08/20/20 13:14 SP TYPE: IMMUNO OTHR DR: Galina Darden, IT SECURITY ANALYST-C [facility] Tissues: C - Lung, NOS Procedures: Synapto (add) CD45 (add) CD56 (add) CHROMO (add) CK20 (add) CK7 (add) CK8 (add) TTF1 (add) Pankeratin (initial) PHYSICIAN & INSTITUTION [place] [phone] SPECIMEN INFORMATION: Tissue Source: C - EBUS, TBNA site 7 Clinical Info: Small lung CA Specimen Number: [id number] CPT code: 58502, 91014 x8 METHODOLOGY: Deparaffinized sections of prefer/formalin-fixed tissue or PAP/DQ stained slides are incubated with monoclonal/polyclonal antibodies/oligonucleotide probes. Localization is made via biotin free immunoperoxidase method. Appropriate controls are performed and reacted as expected. Results on target cell population are indicated in the following table: RESULTS: ANTIBODY / CLONE RESULT Block C AE1-3 (AE1/AE3/PCK26) positive CK7 (OV-TL12/30) negative CK8 (57pgkoY47) positive CK20 (KS20.8) negative CD45 (RP2/18) negative CD56 (123C3.D5) positive Chromo (LK2H10) positive, rare cells Synapto (polyclonal) positive TTF-1 (8G7G3/1) positive These tests were developed and their performance characteristics determined by [facility]. They may not have been cleared or approved by the U.S. Food and Drug Administration. The FDA has determined that such clearance or approval is not necessary. The above immunohistochemical/dualISH markers are ordered and reviewed by the Pathologist. INTERPRETATION: C. EBUS, TBNA site 7: Malignant cells present derived from small cell carcinoma. SJ:terra 08/20/20
--- NOTE | 2020-08-17 | ASPIG_PTH ---
PATIENT: RONALDO ADAM LOC: EN U#:[id number] AGE/SX: 54/M ROOM: RE08/17/[address]: Dr. Pee Castillo MD : 1965 BED: DIS: 08/17/2020 SPEC #: [id number] RECD: 08/17/20 12:52 STATUS: WALE KODI #: [id number] WILFREDO: 08/17/20 00:[address]: Pee Castillo DEPT: CYTOLOGY RECD BY: Yo Guaman ENTERED: 08/17/20 12:53 SP TYPE: ASP OUT OTHR DR: Galina Darden, POKER MANAGER-C [facility] Tissues: A - Lung, NOS B - Lung, NOS C - Lung, NOS Procedures: FNA Specimen Adequacy Special Stain Group II Surgery Specimen Level IV Cytology Other HEADER OPERATION: Endobronchial ultrasound PRE-OP DIAGNOSIS: Small lung CA TISSUE SUBMITTED: A - EBUS, TBNA site 7 #1, B - EBUS, TBNA site 7 #2, C - EBUS, TBNA site 7 DIAGNOSIS CYTOLOGY A. EBUS, TBNA site 7 #1 (smears): Malignant cells present derived from small cell carcinoma. B. EBUS, TBNA site 7 #2 (smears): Malignant cells present derived from small cell carcinoma. C. EBUS, TBNA site 7 fluid (cell block): Malignant cells present derived from small cell carcinoma. SJ:terra 08/20/20 COMMENT The specimen is evaluated at the time of procedure by Dr. Alvarenga. Rapid onsite evaluation: A. EBUS, TBNA site 7 #1: Positive for small cell carcinoma. B. EBUS, TBNA site 7 #2: Positive for small cell carcinoma. C. Immunohistochemistry ([id number]) supports the above diagnosis. Molecular studies on the tumor can be performed if clinically indicated. Please make reference to previous specimens ([id number]) transbronchial needle aspiration, EBUS site 7 (cytospin and cell block) with diagnosis of positive for malignant cells consistent with small cell carcinoma and ([id number]) thoracentesis fluid for cytology with diagnosis of rare atypical cells with degenerative changes and ([id number]) thoracentesis fluid for cytology with diagnosis of negative for malignant cells. CYTOLOGY STUDY Slides are reviewed. CYTOLOGY GROSS A - Received labeled with the patient's name and and designated EBUS, TBNA site 7 #1. The specimen consists of two stained smears for SANTOSH. B - Received labeled with the patient's name and and designated EBUS, TBNA site 7 #2. The specimen consists of two stained smears for SANTOSH. C - Received in RPMI is 30 ml of pink fluid, needle rinsed fluid (#1 and 2) labeled with the patient's name and and designated EBUS, TBNA site 7. The specimen is submitted for cell block preparation. / SUMAN:terra 08/17/20 TC:0 CPT: 18904, 84507, 30779, 90865
--- NOTE | 2020-08-17 10:30 | PCM.HP.BLA ---
Problem List (1) Longstanding persistent atrial fibrillation Status: Chronic (2) Essential (primary) hypertension Status: Chronic (3) Hyperlipidemia Status: Chronic Qualifiers: (4) Small cell lung cancer, right upper lobe Status: Chronic (5) Pleural effusion, right Status: Chronic (6) Chemotherapy induced neutropenia Status: Chronic (7) ALEX (obstructive sleep apnea) Status: Chronic Comment: CPAP 18 cm of water (8) Nicotine dependence Status: Chronic (9) 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 classification Status: Chronic Comment: 76% predicted History and Physical Date of Admission: 08/17/20 Patient is a 54-year-old male, well-known to me from the office, who presents today for an elective endobronchial ultrasound secondary to a positive PET scan. Patient has been diagnosed with small cell lung cancer in the past that was thought to be in remission. Patient had developed a pleural effusion showing malignant cells. This was followed by a PET scan showing hypermetabolic areas in the subcarinal and right hilar area. Oncology has requested the patient have an endobronchial ultrasound for evaluation. Patient has been reporting URI type symptoms recently. Patient has had increased shortness of breath, fever and cough. Patient did have a COVID test that was negative earlier this week. Patient has been holding anticoagulation for 2 days. Workup otherwise negative Most recent testing showed: Compliance report (May 2020): Attempted therapy only 4 out of the last 30 days for an average of 9 hours 33 minutes on CPAP 14 cmH2O with a residual AHI of 10.15 and well-controlled leak. CT chest (11/28/2019): Relatively large stable right pleural effusion with right upper lobe nodule and groundglass opacities Complete PFT (01/31/2020): Mild restrictive ventilatory defect with a symmetric reduction diffusion capacity and significant worsening compared to previous (FVC 67%, FEV1 69%, TLC 83%, DLCO 72%) Thoracentesis (02/15/2020): 2100 cc of linda-colored fluid were removed from the right chest CT chest (02/27/2020): Stable examination with evidence of a right pleural effusion, radiation scarring and a stable 1.3 cm nodule in the peripheral aspect of the right upper lobe Intake Visit Reasons: 3 M FU DME Vendor: Jackie Allergies pioglitazone HCl [From Actos] Adverse Reaction (Severe, Verified 06/11/20 10:34) Other Medications Fluoxetine [Prozac] 60 mg PO DAILY 02/05/15 [History Confirmed 06/11/20] Metoprolol(XL)Succ [Toprol Xl (Beta Eufemia)] 50 mg PO DINNER 02/05/15 [History Confirmed 06/11/20] Fluticasone 0.05% [Flonase Nasal [place]] 2 spray NASAL DAILY PRN PRN 04/11/16 [History Confirmed 06/11/20] Furosemide [Lasix] 40 mg PO DAILY 04/11/16 [History Confirmed 06/11/20] Pravastatin [Pravachol] 40 mg PO DINNER 04/11/16 [History Confirmed 06/11/20] albuterol sulfate 90 mcg/actuation breath activated powder inhaler 2 inh INHALATION Q4H PRN PRN #1 ea 04/13/19 [Rx Confirmed 06/11/20] Lidocaine/Prilocaine [Lidocaine-Prilocaine Cream] 1 applicatio TP DAILY PRN PRN 30 Days #1 tube 06/01/19 [Rx Confirmed 06/11/20] Amlodipine [Norvasc] 10 mg PO DAILY 07/09/19 [History Confirmed 06/11/20] Tiotropium [place] [Spiriva Respimat] 2 puff INHALATION DAILY 07/09/19 [History Confirmed 06/11/20] doxazosin 2 mg tablet 2 mg PO DAILY #90 tab 12/22/19 [Rx Confirmed 06/11/20] losartan 50 mg tablet 50 mg PO BID #180 tab 01/02/20 [Rx Confirmed 06/11/20] budesonide-formoterol HFA 160 mcg-4.5 mcg/actuation aerosol inhaler 2 puff INHALATION BID #1 ea 02/21/20 [Rx Confirmed 06/11/20] rivaroxaban 20 mg tablet 20 mg PO QDAY #30 tab 04/17/20 [Rx Confirmed 06/11/20] [facility] Medical History Marijuana abuse (Chronic) Tobacco abuse (Chronic) Edema (Chronic) ALEX (obstructive sleep apnea) (Chronic) Asthma, moderate persistent (Chronic) HTN (hypertension) (Chronic) Persistent atrial fibrillation (Chronic) Diabetes mellitus (Chronic) Hyperlipidemia (Chronic) PORT PLACEMENT (Acute) Surgical History History of stomach ulcers (Resolved) History of tonsillectomy (Resolved) Pilonidal cyst (Resolved ~1986) Family History Father CAD (coronary artery disease) Hx CABG Family history of hypertension Family history of hyperlipidemia Hypertension CVA (cerebral vascular accident) Mother , Age 55 Sudden cardiac Family history of hypertension Sister Family history of hypertension Family history of hyperlipidemia Grandfather CVA (cerebral vascular accident) Grandmother CVA (cerebral vascular accident) Uncle Lung cancer Social History (Updated 06/11/20 @ 12:[address] Pee Castillo MD) Smoking Status: Current every day smoker tobacco type: cigarettes quit status: considering quitting alcohol intake: never details: occasional substance use type: marijuana caffeine: Yes Type: carbonated beverages, coffee what type of physical activity do you participate in: none seatbelt use: always do you feel safe at home: Yes Review of Systems Const CONSTITUTIONAL: No anorexia, No body ache, No chills, No daytime sleepiness, No fever(s), No night sweats, No stops breathing during sleep, No weight loss, No weight gain, No sleeping in chair, No orthopnea, No fatigue, No headache(s), No frequent colds, No seasonal allergies, No other EETM Ear Nose Throat Mouth: No hoarseness, No Dry mouth in morning, No change in vision, No itchy eyes, No eye pain, No Swallowing Difficulty, No ear pain, No nose bleed, No headache(s), No mouth pain, No nasal congestion, No nasal discharge, No sinus pain, No sinus pressure, No sore throat, No other Cardio Cadriovascular: No chest pain, No chest pain at rest, No chest pain with activity, No irregular heart rhythm, No shortness of breath when lying down, No palpitations, No other Resp Respiratory: Yes as per HPI Gastro Gastrointestional: Negative bloody stools, change in appetite, difficulty swallowing, reflux, hematemesis, melena stool, loose stool, constipation or other Genitourinary: Negative blood in urine, nocturia, pain with urination or other Musc Musculoskeletal: Negative body pain, back pain, neck pain or other Skin/Breast Skin/Breast: No dry skin, No itching, No unusual bruising, No breast lump, No other Neuro Neurological: Negative restless legs, confusion, weakness or other Psych Psychocological: Negative abnormal sleep pattern, anxiety, thoughts of hurting self/others, hopelessness or other Lymph Lymphatic: No easy bleeding, No easy bruising, No other Exam Const Constitutional: Positive conversant, cooperative, in no acute respiratory distress, healthy appearing, well developed, well nourished, obese and appears older than stated age; negative dyspenic, wearing supplemental oxygen or ill appearing Head Head: Yes normocephalic, Yes atraumatic Eyes Eye: Positive clear conjunctiva; negative nystagmus Ears Ear: Positive hearing normal and external ears normal; negative hard of hearing Nose Nose: Yes external nose normal, No nasal polyp, Yes septum normal Mouth Mouth: Positive oral mucosae normal, no lesions, poor dentition and crowded posterior oropharynx; negative malodorous breath, oral thrush present or post nasal drip Mallampati Score: IV: Mallampati Score Neck Neck: Positive normal visual inspection, thick neck, full ROM and trachea midline; negative lymphadenopathy or JVD Chest Wall Chest: Positive normal inspection of the chest and symmetric chest movement; negative crepitus or tenderness Resp lung sounds: Positive diminished and prolonged expiratory time; negative wheezes, wheeze present on forced exhalation, rhonchi, rales, dullness to percussion or use of accessory muscles Cardio Cardiac: Positive regular rate, regular rhythm, S1 normal and S2 normal; negative murmur, rub or gallop GI GI: Positive obese Genitourinary: Positive deferred Musc Musculoskeletal: Positive steady gait; negative using an assistive device for ambulation, kyphosis or scoliosis Skin Pulmonary Skin Exam: Positive intact and dermal atrophy; negative lesion, rash, ulcers, erythema or scaly Erythema noted at the right sternal clavicular area. No skin breakdown or exudate noted. No fluctuance appreciated. Pulses Pulse: Yes radial pulses present Extremities Extremities: Yes capillary refill normal, No clubbing, No cyanosis, No edema, Yes stasis dermatitis Neuro Neurologic: Yes conversant Lymph Lymphatic: No lymphadenopathy, No tenderness, No cervical adenopathy Psych Appearance: Positive grossly normal Mental Status: Positive mental status grossly normal Mood: Positive anxious mood Affect: Positive animated and anxious affect A/P: Plan to proceed with endobronchial ultrasound for verification of probable recurrence of small cell lung cancer. Await findings of biopsy results.
[2020-08-17 10:46] VITALS: BP 124/82; PULSE 94; RESP 18; TEMP 36.5; O2SAT 96; BMI 36.4
[2020-08-17] MEDS: Lactated Ringers 1,000 ML 75 ML IV ×2 (11:20→12:43)
[2020-08-17] MEDS: Lidocaine 2% Jelly 1 APPLIC Tube (11:55)
--- NOTE | 2020-08-17 12:03 | SUR.PREOP ---
AT 11:10, ACCESSED LEFT SUBCLAVIAN VAD WITHOUT DIFFICULTY. VAD FLUSHES EASILY WITH STERILE NS, BUT DOES NOT HAVE A BLOOD RETURN. DECISION MADE TO START PERIPHERAL IV. VAD FLUSHED WITH STERILE DILUTE HEPARIN AND DEACCESSED. NO BLEEDING FROM INSERTION SITE.
[2020-08-17 12:33] VITALS: BP 124/82; BP 80/60; PULSE 83; RESP 18; TEMP 36.8; O2SAT 96
[2020-08-17 12:45] VITALS: BP 124/82; BP 88/54; PULSE 83; RESP 18; O2SAT 97
--- NOTE | 2020-08-17 12:55 | OP.BRONCH_ITS ---
Patient Name: Syd Cantu Procedure Date: 08/17/2020 11:33 AM Date of : 1965 Age: 54 Procedure: Bronchoscopy Indications: Right lower lobe lung mass suspicious for cancer, Mediastinal adenopathy Providers: Pee Castillo MD Referring MD: Olga Amor [facility] Medicines: See the Anesthesia note for documentation of the administered medications Complications: No immediate complications Procedure: Pre-Anesthesia Assessment: - A History and Physical has been performed. Patient meds and allergies have been reviewed. The risks and benefits of the procedure and the sedation options and risks were discussed with the patient. All questions were answered and informed consent was obtained. Patient identification and proposed procedure were verified prior to the procedure by the physician and the nurse in the pre-procedure area. Mental Status Examination: alert and oriented. Airway Examination: normal oropharyngeal airway. Respiratory Examination: clear to auscultation in the left lung and rhonchi in the right lung. CV Examination: normal. Prior Anticoagulants: The patient has taken Xarelto (rivaroxaban), last dose was 2 days prior to procedure. ASA Grade Assessment: III - A patient with severe systemic disease. After reviewing the risks and benefits, the patient was deemed in satisfactory condition to undergo the procedure. The anesthesia plan was to use monitored anesthesia care (MAC). Immediately prior to administration of medications, the patient was re-assessed for adequacy to receive sedatives. The heart rate, respiratory rate, oxygen saturations, blood pressure, adequacy of pulmonary ventilation, and response to care were monitored throughout the procedure. The physical status of the patient was re-assessed after the procedure. After I obtained informed consent, the scope was passed under direct vision. Throughout the procedure, the patient's blood pressure, pulse, and oxygen saturations were monitored continuously. The ultrasound bronchoscope was introduced through the mouth, via laryngeal mask airway and advanced to the tracheobronchial tree. The patient tolerated the procedure well. Findings: The nasopharynx/oropharynx appears normal. The larynx appears normal. The vocal cords appear normal. The subglottic space is normal. The trachea is of normal caliber. The scott is sharp. The tracheobronchial tree of the left lung was examined to at least the first subsegmental level. Bronchial mucosa and anatomy in the left lung are normal; there are no endobronchial lesions, and no secretions. Right Lung Abnormalities: Narrowing was found in the anterior segment of the right upper lobe (B3) and in the right middle lobe. The narrowing appears to be from an extrinsic mass. The airway lumen is about 75% occluded. The lesion was not traversed. Transbronchial needle aspiration of a mass was performed in the subcarinal area using an Olympus EBUS-TBNA 19 gauge needle and sent for routine cytology. The procedure was guided by ultrasound. Three samples were obtained. Stage N2. Rapid On-Site Evaluation (SANTOSH): Preliminary cytology of the lesion in the subcarinal area was suggestive of small cell carcinoma (final results are pending). The patient's condition was unchanged after the intervention. Estimated blood loss: minimal. Impression: - Right lower lobe lung mass suspicious for cancer - Mediastinal adenopathy - The airway examination of the left lung was normal. - A narrowing was found in the anterior segment of the right upper lobe (B3) and in the right middle lobe. The narrowing appears to be from an extrinsic mass. - A transbronchial needle aspiration was performed. - Rapid On-Site Evaluation (SANTOSH): Preliminary cytology of the lesion in the subcarinal area was suggestive of small cell carcinoma (final results are pending). - The patient's condition was unchanged after the intervention. - Systematic lymph node sizing, sampling, ultrasound visualization and preliminary cytology was performed. Tissue was obtained from this exam. The preliminary diagnosis is malignancy. This was staged as N2. Recommendation: - The patient will be observed post-procedure, until all discharge criteria are met. - Await cytology results. - Patient has a contact number available for emergencies. The signs and symptoms of potential delayed complications were discussed with the patient. Return to normal activities tomorrow. Written discharge instructions were provided to the patient. - Follow up with bronchoscopist as previously scheduled. - The patient was advised to call or return to the clinic if there are signs or symptoms suggesting a complication/adverse reaction from the procedure. Procedure Code(s): --- Professional --- 04087, Bronchoscopy, rigid or flexible, including fluoroscopic guidance, when performed; with transbronchial needle aspiration biopsy(s), trachea, main stem and/or lobar bronchus(i) 97786, Bronchoscopy, rigid or flexible, including fluoroscopic guidance, when performed; with transendoscopic endobronchial ultrasound (EBUS) during bronchoscopic diagnostic or therapeutic intervention(s) for peripheral lesion(s) (List separately in addition to code for primary procedure[s]) Diagnosis Code(s): --- Professional --- R59.0, Localized enlarged lymph nodes R91.8, Other nonspecific abnormal finding of lung field CPT copyright 2017 [employer]. All rights reserved. The codes documented in this report are preliminary and upon medical biller coder review may be revised to meet current compliance requirements. MD Pee Ceron MD 08/17/2020 12:55:00 PM This report has been signed electronically. Number of Addenda: 0 Note Initiated On: 08/17/2020 11:33 AM
[2020-08-17 13:00] VITALS: BP 124/82; BP 86/64; PULSE 78; RESP 16; O2SAT 92
[2020-08-17 13:09] VITALS: BP 103/68; BP 124/82; PULSE 79; RESP 16; TEMP 36.3; O2SAT 98
[2020-08-17 13:42] VITALS: BP 105/73; BP 124/82; PULSE 79; RESP 16; TEMP 36.4; O2SAT 96
== END 2020-08-17 13:49 | disposition home or self-care (01) ==
LOC: EN 10:02 → AC 10:03
PROVIDERS: Visit Provider Internal Medicine Critical Care Medicine
PROC: BB4BZZZ Ultrasonography of Pleura (ICD-10-PCS; CPT 31653; principal; 2020-08-17 11:00)
DX: C34.31 Malignant neoplasm of lower lobe, right bronchus or lung (principal); J44.9 Chronic obstructive pulmonary disease, unspecified; J45.40 Moderate persistent asthma, uncomplicated; G47.33 Obstructive sleep apnea (adult) (pediatric); I10 Essential (primary) hypertension; F32.9 Major depressive disorder, single episode, unspecified; F41.9 Anxiety disorder, unspecified; E11.9 Type 2 diabetes mellitus without complications; E78.5 Hyperlipidemia, unspecified; I48.11 Longstanding persistent atrial fibrillation; E78.00 Pure hypercholesterolemia, unspecified; Z86.2 Personal history of diseases of the blood and blood-forming organs and certain disorders involving the immune mechanism; Z79.01 Long term (current) use of anticoagulants; Z79.899 Other long term (current) drug therapy; F17.210 Nicotine dependence, cigarettes, uncomplicated
CPT/HCPCS: 31653; 88161; 88172; 88305; 88313; 88341; 88342; J7120; A4216; J2405

== ENCOUNTER 2020-09-12 10:27 | Day surgery (SDC) | payer MEDICAID, SELFPAY ==
[2019-06-07 10:59] VITALS: BMI 33.7
[2020-09-03 08:35] VITALS: BMI 36.3
[2020-09-12] VITALS (7 sets, daily range): BP systolic 115–129; BP diastolic 70–94; PULSE 69–79; RESP 16–18; TEMP 36.1; O2SAT 96–100; BMI 36.3
[2020-09-12] MEDS: Lactated Ringers 1,000 ML 100 ML IV (11:12)
--- NOTE | 2020-09-12 11:12 | PCM.HP.BLA ---
Problem List (1) Abnormal PET scan of colon Status: Acute History and Physical Date of Admission: 09/12/20 Intake Vital Signs 09/03/20 Height 6 ft 4 in 09/03/20 Weight: 306 lb 09/03/20 BMI 37.2 09/03/20 BP 100/64 09/03/20 Blood Pressure Location Rt brachial 09/03/20 Position Sitting 09/03/20 Respiration 16 09/03/20 Pulse 61 09/03/20 Pulse Source Monitor 09/03/20 Temp 97.8 F 09/03/20 Temp Source Temporal 09/03/20 Pulse Oximetry (%) 97 09/03/20 Oxygen Delivery Method room air Intake Visit Reasons: Sigmoidscopy abnormal pet Chief Complaint: Discuss Sigmoidoscopy Automation And Controls Instructor Required: No Is patient in pain?: No Allergies pioglitazone HCl [From [place] ([employer])] Adverse Reaction (Severe, Verified 09/03/20 08:30) Other Medications Fluoxetine [Prozac] 60 mg PO DAILY 02/05/15 [History Confirmed 09/03/20] Fluticasone 0.05% [Flonase Nasal [place]] 2 spray NASAL DAILY PRN PRN 04/11/16 [History Confirmed 09/03/20] albuterol sulfate 90 mcg/actuation breath activated powder inhaler 2 inh INHALATION Q4H PRN PRN #1 ea 04/13/19 [Rx Confirmed 09/03/20] Lidocaine/Prilocaine [Lidocaine-Prilocaine Cream] 1 applicatio TP DAILY PRN PRN 30 Days #1 tube 06/01/19 [Rx Confirmed 09/03/20] doxazosin 2 mg tablet 2 mg PO DAILY #90 tab 12/22/19 [Rx Confirmed 09/03/20] rivaroxaban 20 mg tablet 20 mg PO QDAY #30 tab 04/17/20 [Rx Confirmed 09/03/20] amlodipine 10 mg tablet 10 mg PO DAILY #90 tab 07/05/20 [Rx Confirmed 09/03/20] furosemide 40 mg tablet 40 mg PO DAILY #90 tab 07/05/20 [Rx Confirmed 09/03/20] losartan 50 mg tablet 50 mg PO BID #180 tab 07/05/20 [Rx Confirmed 09/03/20] metoprolol succinate 50 mg tablet,extended release 24 hr 50 mg PO DINNER #90 tab 07/05/20 [Rx Confirmed 09/03/20] pravastatin 40 mg tablet 40 mg PO DINNER #90 tab 07/05/20 [Rx Confirmed 09/03/20] tiotropium bromide 2.5 mcg/actuation mist for inhalation 2 puff INHALATION DAILY #4 g 07/25/20 [Rx Confirmed 09/03/20] Ondansetron [Zofran] 8 mg PO Q8H PRN PRN 30 Days #30 tab 08/23/20 [Rx Confirmed 09/03/20] Prochlorperazine Maleate 10 mg PO Q6H PRN PRN 10 Days #30 tab 08/23/20 [Rx Confirmed 09/03/20] budesonide-formoterol HFA 160 mcg-4.5 mcg/actuation aerosol inhaler 2 puff INHALATION BID #1 ea 08/31/20 [Rx Confirmed 09/03/20] Loperamide [Imodium] 2 mg PO Q2H PRN PRN 30 Days #30 cap 09/04/20 [Rx] PFSH Medical History Dyspnea (Chronic) Longstanding persistent atrial fibrillation (Chronic) Essential (primary) hypertension (Chronic) Hyperlipidemia (Chronic) Small cell lung cancer, right upper lobe (Acute) Regional lymph node metastasis present (Acute) Consolidation of right lower lobe of lung (Chronic) Pleural effusion, right (Chronic) Adrenal nodule (Chronic) Chemotherapy induced neutropenia (Chronic) ALEX (obstructive sleep apnea) (Chronic) Nicotine dependence (Chronic) 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 classification (Chronic) Abnormal PET scan of colon (Chronic) Asthma, moderate persistent (Chronic) Diabetes mellitus (Chronic) Lung cancer (Chronic) Marijuana abuse (Chronic) Nocturia (Chronic) Obesity (Chronic) Radiation dermatitis (Chronic) Rectal pain (Chronic) Persistent atrial fibrillation (Inactive) Surgical History History of cardioversion (Resolved 03/2016) History of stomach ulcers (Resolved) History of thoracentesis (Resolved 01/2020) History of tonsillectomy (Resolved) PORT PLACEMENT (Resolved) Pilonidal cyst (Resolved ~1986) Family History Father CAD (coronary artery disease) Hx CABG Family history of hypertension Family history of hyperlipidemia Hypertension CVA (cerebral vascular accident) Mother , Age 55 Sudden cardiac Family history of hypertension Sister Family history of hypertension Family history of hyperlipidemia Grandfather CVA (cerebral vascular accident) Grandmother CVA (cerebral vascular accident) Uncle Lung cancer Social History (Updated 09/04/20 @ 11:[address] Eric Vance MD) Smoking Status: Current every day smoker tobacco type: cigarettes how long ago did patient quit smokin days ago quit status: quit date established alcohol intake: never details: occasional substance use type: marijuana caffeine: Yes Type: carbonated beverages, coffee what type of physical activity do you participate in: none seatbelt use: always do you feel safe at home: Yes HPI HPI HPI: RONALDO ADAM, is a 54 M who presents to the office today for HPI HPI HPI: RONALDO ADAM, is a 54 M who presents to the office today for evaluation of rectal vault. The patient had a PET scan which showed increased uptake in the rectal vault. His last colonoscopy was 3 years ago and was normal. Patient has not been having abdominal pain but he does note that he has had some blood in the stool and ribbonlike stools. ROS General General: Yes weight change and fatigue; no appetite, colon cancer, breast cancer or weakness HEENT HEENT: Yes difficulty swallowing; no eye injury, eye surgery, swollen glands or hoarseness Endo Endocrine: No thyroid disease, diabetes mellitus, thyroid cancer, Hair loss, heat intolerance or cold intolerance Skin Skin: No rash or changing moles Musc Musculoskeletal: Yes back problems; no arthritis, rheumatoid arthritis, gout or joint pain Cardio Cardiovascular: Yes atrial fibrillation and high blood pressure; no murmur, pacemaker, heart disease, heart attack, heart stent, palpitations, shortness of breat with exertion or chest pain Psych Psychiatric: Yes depression; no anxiety or hearing voices Resp Respiratory: Yes shortness of breath, Yes sleep apnea, No cough, No COPD, No asthma, No emphysema, No wheezing Gastro Gastrointestinal: No abdominal pain, No nausea or vomiting, Yes diarrhea, No constipation, Yes blood in stool, No acid reflux, Yes hemorrhoids, No ulcers, No gallbladder problem, Yes black,tarry stools Cornel Hematologic: Yes blood thinners, No blood disorders, No bleeding, No anemia, No blood clots Neuro Neurologic: No system reviewed and no additional complaints, except as docu, No as per HPI, No abnormal walking, No abnormal hearing, No abnormal movements, No abnormal speech, No behavioral changes, No burning sensations, No confusion, No seizure-like activity, No unsteadiness, No dizziness, No localized weakness, No frequent falls, No headache(s), No lack of coordination, No loss of vision, No memory loss, No numbness, No other visual disturbances, No radiating pain, No restless legs, No sensory deficit, No fainting, No tingling, No tremor(s), No weakness, No other Exam Const General: cooperative Orientation: alert, oriented x3 Resp Effort & Inspection: normal respiratory effort Auscultation: clear to auscultation bilaterally Cardio Rate: regular rate Rhythm: regular rhythm Heart Sounds: no murmurs GI Inspection: non-distended Palpation: soft, nontender Assessment & Plan Problems 1. Abnormal positron emission tomography (PET) of colon R94.8 Plan Patient had increased uptake in the rectal vault. He refused rectal exam. I discussed flexible sigmoidoscopy with him in detail. I discussed the risks including not limited to bleeding, perforation. Patient understands the risks. I will have him stop his blood thinners for 2 days prior to the procedure. He will take a fleets enema the night prior and the morning of. Plan for flexible sigmoidoscopy with possible biopsies. Eric Vance MD Pager: [facility] [address] [place] [address], [address] [place] [address] Office: I have re-examined the patient. There are no clinical changes since date of exam.
[2020-09-12 11:20] LABS: Bedside Glucose 102 mg/dL (70-110)
--- NOTE | 2020-09-12 11:38 | OP.FLEXSIG_ITS ---
Patient Name: Syd Cantu Procedure Date: 09/12/2020 10:57 AM Date of : 1965 Age: 54 Procedure: Flexible Sigmoidoscopy Indications: Abnormal PET scan of the GI tract Providers: Eric Vance MD Referring MD: Olga Amor [facility] Medicines: Monitored Anesthesia Care Patient Profile: This is a 54 year old male. Refer to note in patient chart for documentation of history and physical. Complications: No immediate complications. Estimated blood loss: Minimal. Procedure: Pre-Anesthesia Assessment: - Prior to the procedure, a History and Physical was performed, and patient medications and allergies were reviewed. The patient's tolerance of previous anesthesia was also reviewed. The risks and benefits of the procedure and the sedation options and risks were discussed with the patient. All questions were answered, and informed consent was obtained. Prior Anticoagulants: The patient has taken Eliquis (apixaban), last dose was 2 days prior to procedure. After reviewing the risks and benefits, the patient was deemed in satisfactory condition to undergo the procedure. After obtaining informed consent, the endoscope was passed under direct vision. Throughout the procedure, the patient's blood pressure, pulse, and oxygen saturations were monitored continuously. The Colonoscope was introduced through the anus and advanced to the rectosigmoid junction. The flexible sigmoidoscopy was accomplished without difficulty. The patient tolerated the procedure well. The quality of the bowel preparation was good. Scope In: 11:30:23 AM Scope Out: 11:33:02 AM Total Procedure Duration Time 0 hours 2 minutes 39 seconds Findings: An anal fissure was found on perianal exam. The entire examined colon appeared normal. Impression: - Anal fissure found on perianal exam. - The entire examined colon is normal. - No specimens collected. Recommendation: - Continue present medications. Procedure Code(s): --- Professional --- 49790, 52, Sigmoidoscopy, flexible; diagnostic, including collection of specimen(s) by brushing or washing, when performed (separate procedure) Diagnosis Code(s): --- Professional --- K60.2, Anal fissure, unspecified R93.3, Abnormal findings on diagnostic imaging of other parts of digestive tract CPT copyright 2017 [employer]. All rights reserved. The codes documented in this report are preliminary and upon defensive driving instructor review may be revised to meet current compliance requirements. Eric Vance MD 09/12/2020 11:37:23 AM This report has been signed electronically. Number of Addenda: 0 Note Initiated On: 09/12/2020 10:57 AM
--- NOTE | 2020-09-12 11:38 | OP.CCLET_ITS ---
09/12/2020 Cristiana Johnson [address] [place] [address] Re : Flexible Sigmoidoscopy procedure for Syd Cantu Dear Dr. Johnson This procedure was performed on Saturday, September 12, 2020. My impressions and recommendations are as follows: Impressions : - Anal fissure found on perianal exam. - The entire examined colon is normal. - No specimens collected. Recommendations : - Continue present medications. My findings are described in the full procedure note, which is enclosed. If I can be of further assistance, please feel free to contact me at Doctor phone number(s): , Work: . Sincerely, Eric Vance MD 09/12/2020 11:37:23 AM This report has been signed electronically.
== END 2020-09-12 12:25 | disposition home or self-care (01) ==
LOC: EN 10:27 → AC 10:28
PROVIDERS: Anesthesiology; Visit Provider Surgery
PROC: 0DJD8ZZ Inspection of Lower Intestinal Tract, Via Natural or Artificial Opening Endoscopic (ICD-10-PCS; CPT 45330; principal; 2020-09-12 11:25)
DX: K60.2 Anal fissure, unspecified (principal); Z11.59 Encounter for screening for other viral diseases; I10 Essential (primary) hypertension; I48.11 Longstanding persistent atrial fibrillation; G47.33 Obstructive sleep apnea (adult) (pediatric); J44.9 Chronic obstructive pulmonary disease, unspecified; J45.40 Moderate persistent asthma, uncomplicated; E11.9 Type 2 diabetes mellitus without complications; F32.9 Major depressive disorder, single episode, unspecified; F41.9 Anxiety disorder, unspecified; E66.9 Obesity, unspecified; Z68.37 Body mass index [BMI] 37.0-37.9, adult; E78.00 Pure hypercholesterolemia, unspecified; C34.11 Malignant neoplasm of upper lobe, right bronchus or lung; Z86.2 Personal history of diseases of the blood and blood-forming organs and certain disorders involving the immune mechanism; Z87.19 Personal history of other diseases of the digestive system; Z79.01 Long term (current) use of anticoagulants; Z79.899 Other long term (current) drug therapy; F12.10 Cannabis abuse, uncomplicated; F17.210 Nicotine dependence, cigarettes, uncomplicated
CPT/HCPCS: 45330; 82962; 87635; C9803; J7120; U0003

== ENCOUNTER → 2020-10-11 06:41 | Outpatient (CLI) | payer MEDICAID, SELFPAY ==
[2019-06-07 10:59] VITALS: BMI 33.7
[2020-07-05 08:57] VITALS: BMI 38.5
[2020-10-10 08:14] VITALS: BMI 35.5
--- NOTE | 2020-10-11 06:42 | MRI_ITS ---
STUDY: MRI BRAIN WITH AND WITHOUT CONTRAST REASON FOR EXAM: Male, 55 years old. small cell lung ca, eval for mets TECHNIQUE: Standardized multiplanar fat and water weighted pulse sequences were obtained. IV Yes YES was administered for the contrast portion of the examination. COMPARISON: 07/05/2020 FINDINGS: There is mild cerebral atrophy with widening of the extra-axial spaces and ventricular dilatation. Normal white matter tracts of the supratentorial brain. Normal bilateral basal ganglia. Normal thalami. There is no extra-axial fluid accumulation. Normal flow voids within the major intracranial circulation suggesting patency by spin echo criteria. Normal venous enhancement. There is no enhancing intra-axial or extra-axial abnormality. Normal sella turcica, pituitary gland, infundibular stalk, optic chiasm and hypothalamus. Normal tectal plate and pineal gland. Normal midbrain, yuliana and medulla. Normal cerebellum. MRI/Brain W/WO Contrast IMPRESSION: No evidence of metastatic disease. Electronically Signed: Wesley Bansal MD at 15:57 EST Tel , Service support ,
== END ==
PROVIDERS: Referring Provider Student in an Organized Health Care Education/Training Program; Visit Provider Student in an Organized Health Care Education/Training Program
DX: C34.11 Malignant neoplasm of upper lobe, right bronchus or lung (principal)
CPT/HCPCS: 70553; A9575

== ENCOUNTER → 2020-10-23 07:50 | Outpatient (CLI) | payer MEDICAID, SELFPAY ==
[2019-06-07 10:59] VITALS: BMI 33.7
[2020-06-05 13:33] VITALS: BMI 37.5
[2020-10-12 11:00] VITALS: BMI 35.5
--- NOTE | 2020-10-23 07:51 | CT_ITS ---
STUDY: CT CHEST WITH CONTRAST REASON FOR EXAM: Male, 55 years old. LUNG CA -CURRENTLY CHEMO, HAD RAD TX LAST YEAR, JUST QUIT SMOKING, HX-A-FIB, HTN, ASTHMA, DB, HAS POWER PORT RADIATION DOSAGE (If Supplied By Facility): CTDIvol = ( 22.99 ) mGy, DLP = ( 2122.73 ) mGycm TECHNIQUE: Transaxial imaging was performed following intravenous administration of IV 100mL Isovue-300. Multiplanar coronal and sagittal images were reformatted. Individualized dose optimization techniques were used for this CT. COMPARISON: PET scan 08/07/2020, CT 02/27/2020 FINDINGS: Left jugular chest port is stable. Stable moderate-sized pleural effusion at the right lung base similar since prior PET scan. Stable bronchiectasis and scarring in the right upper lobe and right middle lobe likely due to to post radiation fibrosis. The nodule in the right lower lobe with abnormal FDG activity on prior PET scan has involuted with only a small reticular density in this same region (image 75 of the current study) without a discrete mass. The left lung is unchanged. Normal heart and pericardium. There are calcifications of the coronary arteries. Subcarinal lymph node has decreased in size currently measuring 1.1 x 2.1 cm (previously measured 2.6 x 4.7 cm on prior PET scan). Persistent soft tissue thickening in the right hilum without discrete solid mass. Normal enhanced pulmonary arteries. There is atherosclerotic calcification of the aortic arch with tortuosity and elongation of the aortic arch and descending thoracic aorta. There are multi-level degenerative changes of the thoracic spine. Upper abdomen described on abdomen/pelvis CT report. CT/Chest WITH Contrast IMPRESSION: 1. Since 08/07/2020, favorable change. Complete involution of right lower lobe solid PET positive nodule with only minimal residual reticulation. Decreased size of Station 7 subcarinal adenopathy. 2. 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 3. Similar volume right pleural effusion, predominantly at the right chest base. Electronically Signed: Wilfred Burgess MD ([place]) at 18:37 EST , Service support ,
--- NOTE | 2020-10-23 07:51 | CT_ITS ---
EXAMINATION: CT ABDOMEN WITH IV CONTRAST CT Abdomen W/ Contrast Injection CLINICAL HISTORY: 55 years Male, LUNG CA -CURRENTLY CHEMO, HAD RAD TX LAST YEAR, JUST QUIT SMOKING, HX-A-FIB, HTN, ASTHMA, DB, HAS POWER PORT COMPARISON: Previous CT scan of the abdomen and pelvis obtained on 08/13/2020 TECHNIQUE: A CT scan of the abdomen was performed with IV contrast contrast administration. Coronal and sagittal reconstruction images were reviewed. This exam was performed according to our departmental dose-optimization program, which includes automated exposure control, adjustment of the mA and/or kV according to patient size and/or use of iterative reconstruction technique. FINDINGS: The lung bases show a moderate right lung base pleural effusion. This is unchanged from the previous CT scan. The liver is normal.The spleen is normal.The adrenal glands are normal.The head, body, and tail of the pancreas are normal. The right and left kidneys were examined and appear to be normal. Both ureters appear to be normal, and no obstructive uropathy is identified. The abdominal aortal is normal along its course and distribution. No paraortic lymphadenopathy is seen. No abdominal masses or lesions are seen. Bone scanning windows of the lumbar spine and pelvis were reviewed in the coronal and sagittal planes and appear to be normal. CT/Abdomen WITH IV Contrast IMPRESSION: A moderate right lung base pleural effusion is again identified, in this otherwise normal CT scan of the abdomen. Electronically Signed: Cosmo Pinon, at 11:52 EST Tel , Service support ,
== END ==
PROVIDERS: Referring Provider Internal Medicine Hematology & Oncology; Visit Provider Internal Medicine Hematology & Oncology
DX: C34.11 Malignant neoplasm of upper lobe, right bronchus or lung (principal)
CPT/HCPCS: 71260; 74160; Q9967; A4216

== ENCOUNTER → 2020-11-27 07:58 | Outpatient (CLI) | payer MEDICAID, SELFPAY ==
[2019-06-07 10:59] VITALS: BMI 33.7
[2020-11-26 13:23] VITALS: BMI 34.4
--- NOTE | 2020-11-27 08:04 | CT_ITS ---
STUDY: CTA CHEST REASON FOR EXAM: Male, 55 years old. WORSENING EXERTIONAL DYSPNEA, LUNG CANCER WITH CHEMO/RADIATION RADIATION DOSAGE (If Supplied By Facility): CTDIvol = ( 18.6 ) mGy, DLP = ( 561.23 ) mGycm TECHNIQUE: The examination was performed with the intravenous administration of IV 100mL Isovue-370. Post-processing of the angiographic images was performed, with multiplanar reformation and 3D reconstruction. Individualized dose optimization techniques were used for this CT. COMPARISON: 10/23/2020 FINDINGS: Normal enhancement of the main pulmonary artery and right and left pulmonary arteries. Normal enhancement of the bilateral peripheral pulmonary arteries. There is no demonstrated pulmonary embolism. There is atherosclerotic calcification of the aortic arch with tortuosity. There is no demonstrated aortic dissection. Normal heart and pericardium. Normal mediastinum. No change in the scarring in the hilum of the right lung and right-sided mediastinum. Normal visualized trachea and bronchi. The lungs are well expanded. Normal pulmonary parenchyma. Moderate right pleural effusion. Normal chest wall structures. Normal osseous structures. Normal visualized upper abdomen. CT/CTA Chest W/WO Contrast IMPRESSION: 1. No CT evidence of pulmonary embolism. 2. Scarring and pleural effusion at the right lung consistent with treated bronchial carcinoma. Electronically Signed: Pb Troncoso MD at 8:56 EST Tel , Service support ,
== END ==
PROVIDERS: PCP Internal Medicine; Referring Provider Nurse Practitioner Family; Visit Provider Nurse Practitioner Family
DX: C34.11 Malignant neoplasm of upper lobe, right bronchus or lung (principal); R06.00 Dyspnea, unspecified
CPT/HCPCS: 71275; Q9967

== ENCOUNTER → 2020-12-24 12:08 | Outpatient (CLI) | payer MEDICAID, SELFPAY ==
[2019-06-07 10:59] VITALS: BMI 33.7
[2020-12-11 09:31] VITALS: BMI 34.2
[2020-12-18 09:18] VITALS: BMI 35.3
--- NOTE | 2020-12-24 12:09 | CT_ITS ---
STUDY: CT CHEST WITH CONTRAST REASON FOR EXAM: Male, 55 years old. SMALL CELL LUNG CA - RESPONSE TO TREATMENT. RADIATION DOSAGE (If Supplied By Facility): CTDIvol = ( 24.54 ) mGy, DLP = ( 2258.48 ) mGycm TECHNIQUE: Transaxial imaging was performed following intravenous administration of IV 100mL Isovue-300. Multiplanar coronal and sagittal images were reformatted. Individualized dose optimization techniques were used for this CT. COMPARISON: CT chest 11/27/2020. 10/23/2020. FINDINGS: Left internal jugular approach catheter with tip in the superior vena cava. Stable volume loss in the right hemithorax with shift of heart, mediastinum and trachea to the right, stable right inge and right mediastinal scarring with distortion of parenchyma, central airspace opacification, bronchiectasis and fibrotic changes. Stable irregular pleural thickening along the anterior right upper lobe and right middle lobe, thickening of the major fissure. Faint nodular right upper lobe opacification on previous examination imaged 113 series 2 of 0.5 cm in longest faintly visualized on current examination image 34 series 6. The left upper lobe demonstrate faint areas off groundglass opacities. Stable moderate right pleural effusion in the base which may be loculated.. Normal heart and pericardium. There are calcifications of the coronary arteries. There is no pericardial fluid. There are subcarinal lymph nodes, largest 1 x 1.4 cm image 68 series 2 with mild enhancement and adjacent smaller lymph nodes appears stable. There is a stable left paraesophageal low-attenuation nodule image 46 series 2 measuring 0.75 cm. There are additional smaller periesophageal nodules. Right hilar lymph node may be present measuring 1.2 x 1.5 cm image 56 series 2. The esophageal wall appears thickened. The minimal fluid in the mediastinum appears more pronounced. Normal enhanced pulmonary arteries. There is atherosclerotic tortuosity of the aortic arch and descending thoracic aorta. There are multi-level degenerative changes of the thoracic spine. There are no destructive osseous lesions. For a description of findings in the abdomen, please refer to the dedicated CT report performed by the abdominal imaging section the same day. CT/Chest WITH Contrast IMPRESSION: Stable central airspace disease with volume loss, scarring, bronchiectasis likely fibrosis along the right hilum and right para mediastinal pleura with moderate right pleural effusion. Stable mediastinal and probable right hilar lymph node enlargement. Interval development of hazy groundglass opacities in the left upper lobe, possible inflammatory in nature. Previously seen faint nodular density posterior right upper lobe without enlargement. Other nonacute findings as outlined above. Electronically Signed: Joselyn Mccartney MD at 5:44 EST , Service support ,
--- NOTE | 2020-12-24 12:09 | CT_ITS ---
STUDY: CT ABDOMEN WITH CONTRAST REASON FOR EXAM: Male, 55 years old. SMALL CELL LUNG CA - RESPONSE TO TREATMENT. RADIATION DOSAGE (If Supplied By Facility): CTDIvol = ( 24.54 ) mGy, DLP = ( 2258.48 ) mGycm TECHNIQUE: Transaxial images were obtained post I.V. administration of IV 100mL Isovue-300, and without oral contrast. Sagittal and coronal images were reconstructed. Individualized dose optimization techniques were used for this CT. COMPARISON: CT abdomen 10/23/2020. CT abdomen pelvis 08/13/2020 FINDINGS: For a description of findings in the chest, please refer to the dedicated CT report performed by the Chest Imaging section the same day. There is lobular in contour with an enlarged right hepatic lobe measuring 17.5 cm craniocaudal. There is no focal liver lesion. Normal gallbladder and extrahepatic biliary system. Normal spleen. Normal pancreas. Normal bilateral adrenal glands. Normal right kidney. Normal left kidney. Normal visualized stomach. Normal small intestine. Normal colon. The appendix is visualized and appears normal. There is diffuse atherosclerotic calcification of the abdominal aorta and greater branches, without a demonstrated aneurysm. Normal inferior vena cava. Normal retroperitoneum. Normal abdominal wall. There are degenerative changes of the visualized lumbar spine. There are no destructive osseous lesions. CT/Abdomen WITH IV Contrast IMPRESSION: Stable lobular liver with enlargement of the right hepatic lobe. No lymphadenopathy, masses in the liver or adrenal glands. Diffuse arterial sclerosis without change. Electronically Signed: Joselyn Mccartney MD at 6:15 EST , Service support ,
== END ==
PROVIDERS: Referring Provider Internal Medicine Hematology & Oncology; Visit Provider Internal Medicine Hematology & Oncology
DX: C34.11 Malignant neoplasm of upper lobe, right bronchus or lung (principal); C77.9 Secondary and unspecified malignant neoplasm of lymph node, unspecified
CPT/HCPCS: 71260; 74160; Q9967; A4216

== ENCOUNTER → 2021-01-08 11:57 | Outpatient (CLI) | payer MEDICAID, SELFPAY ==
[2019-06-07 10:59] VITALS: BMI 33.7
[2021-01-01 09:03] VITALS: BMI 34.5
--- NOTE | 2021-01-08 12:08 | US_ITS ---
PROCEDURE: ULTRASOUND GUIDED THORACENTESIS. DATE: 01/08/2021. INDICATION: Male, 55 years old. Right pleural effusion. PHYSICIAN: Melquiades Stallings M.D. PROCEDURE: The risks, benefits, and alternatives to the procedure were explained to the patient. The specific risks of bleeding, infection, and pneumothorax requiring chest tube insertion were discussed and accepted. Written informed consent was obtained. Ultrasonographic evaluation of the right lower pleural space was carried out. An adequate pocket was identified. The patient was placed in the sitting, upright position. The overlying skin was prepped and draped in sterile fashion. 1% lidocaine was administered subcutaneously for local anesthesia. Under ultrasound guidance, a 5 Ethiopian thoracentesis needle/catheter system was advanced into the right posterior lower pleural fluid collection. Approximately 100 mL of linda-colored fluid was drained. The catheter was removed, and a sterile dressing was applied. A specimen was collected and sent to the laboratory for analysis, as requested by the referring clinician. The patient tolerated the procedure well. A chest x-ray was ordered. US/Thoracentesis W US IMPRESSION: Ultrasound-guided right thoracentesis. Electronically Signed: Melquiades Stallings MD at 13:04 EST , Service support ,
[2021-01-08 12:22] VITALS: BP 109/74; BP 95/58; BP 96/47; PULSE 65; PULSE 75; PULSE 83; RESP 18; TEMP 36.9; O2SAT 97; O2SAT 98
--- NOTE | 2021-01-08 12:40 | RAD_ITS ---
STUDY: X-RAY CHEST REASON FOR EXAM: Male, 55 years old. Post thoracentesis TECHNIQUE: AP inspiration and expiration views. COMPARISON: Comparison is made with prior examination dated 07/27/2020. FINDINGS: A left-sided Port-A-Cath is seen with the tip at the junction of the superior vena cava and right atrium. The patient is status post right thoracentesis. There is no evidence of pneumothorax. Residual pleural parenchymal changes are seen at the right lung base. RAD/Chest Insp/Exp 2 View IMPRESSION: Status post right thoracentesis. No evidence of pneumothorax. Stable pleural parenchymal changes at the right lung base. Electronically Signed: Melquiades Stallings MD at 12:55 EST , Service support ,
--- NOTE | 2021-01-08 12:43 | FLU_PTH ---
PATIENT: RONALDO ADAM LOC: [facility]#:[id number] AGE/SX: 60/M ROOM: RE01/08/[address]: Dr. Cristiana Johnson MD : 1965 BED: DIS: SPEC #: [id number] RECD: 01/09/21 13:18 STATUS: WALE KODI #: [id number] WILFREDO: 01/08/21 12:[address]: Cristiana Johnson DEPT: CYTOLOGY RECD BY: Yolanda Pressley ENTERED: 01/09/21 13:18 SP TYPE: Fluid OTHR DR: Dr. Lizzeth Velasquez MD Tissues: THORACIC FLUID Procedures: Special Stain Group II Surgery Specimen Level IV Cytospin Fluid HEADER OPERATION: Thoracentesis PRE-OP DIAGNOSIS: Pleural effusion TISSUE SUBMITTED: Thoracentesis fluid for cytology DIAGNOSIS CYTOLOGY Thoracentesis fluid for cytology (cytospin and cell block): Negative for malignant cells. AM:terra 01/10/2021 CYTOLOGY STUDY Slides are reviewed. CYTOLOGY GROSS Received is 90 ml of yellow cloudy fluid labeled with the patient's name and and designated per the requisition as thoracentesis. Submitted for cytology preparation including cell block. / rg 01/09/2021 TC:5 CPT: 07894, 84717
[2021-01-08 12:50] VITALS: BP 111/69; PULSE 75; RESP 18; O2SAT 98
[2021-01-08 13:04] LABS: Cytology, Body Fluid / CSF SEE PATHOLOGY REPORT
[2021-01-08 13:26] LABS: Absolute Neutrophil Count 4.1 X10^3/uL (2.0-7.7); Basophil# 0.02 X10^3/uL; Basophil% 0.3 % (0-1); Eosinophil# 0.04 X10^3/uL; Eosinophils% 0.6 % (0-5); Hematocrit 34.5 % (40-54); Hemoglobin 10.6 g/dL (13.0-16.5); Lymphocyte % 20.7 % (19-41); Mean Corp Hgb Conc 30.7 g/dL (32-36); Mean Corpuscular Hgb 32.1 pg (27.0-32.0); Mean Corpuscular Volume 104.5 fL (80-94); Mean Platelet Vol. 9.5 fl (6.2-12.0); Monocyte# 0.81 X10^3/uL; Monocyte% 12.9 % (0-10); NRBC Flagged by Analyzer 0 % (0-5); Neutrophil # 4.07 X10^3/uL (2.7-7.7); POSITIVE MORPHOLOGY YES; Platelet Count 287 K/mm3 (150-450); RBC Distribution Width CV 18.9 % (11.6-14.6); RBC Distribution Width SD 72.3 fl (35.1-43.9); White Blood Count 6.3 K/mm3 (4.4-11.0)
[2021-01-08 13:31] LABS: International Normalized Ratio 1.2; Prothrombin Time (Protime)PT. 14.5 SECONDS (11.7-14.9)
[2021-01-08 13:32] LABS: Partial Thromboplast Time 33.4 Seconds (24.1-36.2)
[2021-01-08 13:39] LABS: Differential Indicated SCAN CRITERIA MET
[2021-01-08 14:01] LABS: Anisocytosis 1+; Macrocytosis 1+; Polychromasia 1+; Rouleaux 1+
[2021-01-08 20:01] LABS: Xtra Tube EP Lab EXTRA TUBE
== END ==
PROVIDERS: PCP Internal Medicine; Referring Provider Internal Medicine Hematology & Oncology; Visit Provider Internal Medicine Hematology & Oncology
DX: Z01.818 Encounter for other preprocedural examination (principal); J90 Pleural effusion, not elsewhere classified; R06.00 Dyspnea, unspecified; C34.11 Malignant neoplasm of upper lobe, right bronchus or lung
CPT/HCPCS: 32555; 36415; 71046; 85025; 85610; 85730; 88108; 88305; 88313

== ENCOUNTER → 2021-03-22 07:54 | Outpatient (CLI) | payer MEDICAID, SELFPAY ==
[2019-06-07 10:59] VITALS: BMI 33.7
[2021-03-05 08:35] VITALS: BMI 34.5
[2021-03-15 08:16] VITALS: BMI 34.0
--- NOTE | 2021-03-22 08:03 | CT_ITS ---
STUDY: CT CHEST T ABDOMEN WITH CONTRAST REASON FOR EXAM: Male, 55 years old. Assess response to treatment. The patient has a history of small cell lung cancer. RADIATION DOSAGE (If Supplied By Facility): CTDIvol = ( 24.60 ) mGy, DLP = ( 2134.72 ) mGycm TECHNIQUE: Transaxial imaging was performed following intravenous administration of . Individualized dose optimization techniques were used for this CT. COMPARISON: Comparison is made with prior examination dated 12/24/2020. FINDINGS: CHEST A left-sided portacatheter is seen with the tip in the superior vena cava. Stable volume loss in the right hemithorax. 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 Stable small right pleural effusion with a loculated fluid in the lateral aspect of the right hemithorax. The left lung is clear and hyperexpanded. There are calcifications of the coronary arteries. Stable appearance of the subcarinal lymph nodes. Normal hilar regions. Normal unenhanced pulmonary arteries. Atherosclerotic calcific plaques of the aortic arch. There are multi-level degenerative changes of the thoracic spine. There is no demonstrated abnormality of the visualized upper abdomen. ABDOMEN Normal liver. Normal gallbladder and extrahepatic biliary system. Normal spleen. Normal pancreas. Normal bilateral adrenal glands. Normal right kidney. Normal left kidney. Normal visualized stomach. Normal small intestine. Normal colon. The appendix is visualized and appears normal. There is diffuse atherosclerotic calcification of the abdominal aorta and its major visceral branches, without a demonstrated aneurysm. Normal inferior vena cava. Normal retroperitoneum. Normal abdominal wall. There are diffuse degenerative changes of the visualized lumbar spine. CT/CT Chest AND Abd W/ Contrast IMPRESSION: Stable examination of the chest. No new abnormality is seen. Electronically Signed: Melquiades Stallings MD at 9:50 EDT , Service support ,
[2021-03-22 08:28] LABS: AST(SGOT) 9 U/L (15-37); Alanine Aminotransfer ALT/SGPT 11 U/L (16-61); Albumin, Serum 2.9 g/dL (3.2-5.0); Alkaline Phosphatase 72 U/L (45-117); Bilirubin, Direct 0.12 mg/dL (0.00-0.30); Cholesterol 153 mg/dL (200); Globulin 5.5 g/dL (2.2-4.2); High Density Lipoprotein 40 mg/dL; Protein, Total 8.4 g/dL (6.4-8.2); Triglycerides 99 mg/dL; Very Low Density Lipoprotein 20 mg/dL (5-40)
[2021-03-22] MEDS: 0.9% Saline Lock 10 ML Syringe IV (08:30)
== END ==
PROVIDERS: Nurse Practitioner Family; PCP Internal Medicine; Referring Provider Nurse Practitioner Family; Visit Provider Nurse Practitioner Family
DX: C34.11 Malignant neoplasm of upper lobe, right bronchus or lung (principal); E78.5 Hyperlipidemia, unspecified; I10 Essential (primary) hypertension; I48.11 Longstanding persistent atrial fibrillation
CPT/HCPCS: 36415; 71260; 74160; 80061; 80076; Q9967; A4216

== ENCOUNTER → 2021-04-15 07:10 | Outpatient (CLI) | payer MEDICAID, SELFPAY ==
[2019-06-07 10:59] VITALS: BMI 33.7
[2021-04-08 11:09] VITALS: BMI 33.9
--- NOTE | 2021-04-15 07:11 | MRI_ITS ---
STUDY: MRI BRAIN WITH AND WITHOUT CONTRAST REASON FOR EXAM: Male, 55 years old. fatigue, small cell lung cancer TECHNIQUE: Standardized multiplanar fat and water weighted pulse sequences were obtained. IV 25ml Dotarem was administered for the contrast portion of the examination. COMPARISON: 10/11/2020 FINDINGS: Normal size of the ventricles and extra-axial spaces for the patient''s age. Normal white matter tracts of the supratentorial brain. There is no evidence for recent intracranial ischemia or other cause of cytotoxic edema on diffusion weighted imaging (DWI). Normal T2* images of the brain without demonstrated susceptibility artifact. There is no demonstrated hemosiderin stain. Normal bilateral basal ganglia. Normal thalami. There is no extra-axial fluid accumulation. Normal flow voids within the major intracranial circulation suggesting patency by spin echo criteria. Normal venous enhancement. There is no enhancing intra-axial or extra-axial abnormality. Normal sella turcica, pituitary gland, infundibular stalk, optic chiasm and hypothalamus. Normal tectal plate and pineal gland. Normal midbrain, yuliana and medulla. Normal cerebellum. Normal basal cisterns. Normal bilateral temporal bones. Normal bilateral internal auditory canals. No demonstrated orbital abnormality, within the constraints of a routine brain study. Normal visualized paranasal sinuses. Normal calvarium and skull base. Normal visualized soft tissue structures. Normal visualized upper cervical spine. MRI/Brain W/WO Contrast IMPRESSION: Normal unenhanced and enhanced MRI of the brain. No MR evidence metastatic disease. Electronically Signed: Pb Troncoso MD at 9:02 EDT Tel , Service support ,
== END ==
PROVIDERS: PCP Internal Medicine; Referring Provider Nurse Practitioner Family; Visit Provider Nurse Practitioner Family
DX: C34.11 Malignant neoplasm of upper lobe, right bronchus or lung (principal); R53.83 Other fatigue
CPT/HCPCS: 70553; A9575

== ENCOUNTER → 2021-05-14 12:17 | Outpatient (CLI) | payer MEDICAID, SELFPAY ==
[2019-06-07 10:59] VITALS: BMI 33.7
[2021-03-11 08:10] VITALS: BMI 34.2
[2021-05-07 08:13] VITALS: BMI 33.8
[2021-05-14 12:48] VITALS: PULSE 104; PULSE 109; PULSE 112; PULSE 114; PULSE 75; PULSE 83; PULSE 89; PULSE 98; O2SAT 94; O2SAT 95
--- NOTE | 2021-05-15 14:19 | WT_ITS ---
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 Assistive device used: None Pre-test Oxygen Delivery Method Room Air Pulse Ox (%) 94 Pulse Rate (60-100 beats/min) 83 Dyspnea Darnell Scale (0-10) 0 1st minute Oxygen Delivery Method Room Air Pulse Ox (%) 95 Pulse Rate (60-100 beats/min) 89 Dyspnea Darnell Scale (0-10) 1 Number of Rests Taken 0 2nd minute Oxygen Delivery Method Room Air Pulse Ox (%) 94 Pulse Rate (60-100 beats/min) 98 Dyspnea Darnell Scale (0-10) 1 Number of Rests Taken 0 3rd minute Oxygen Delivery Method Room Air Pulse Ox (%) 95 Pulse Rate (60-100 beats/min) 104 H Dyspnea Darnell Scale (0-10) 2 Number of Rests Taken 0 Reported Symptoms Increased Work of Breathing 4th minute Oxygen Delivery Method Room Air Pulse Ox (%) 94 Pulse Rate (60-100 beats/min) 109 H Dyspnea Darnell Scale (0-10) 2 Number of Rests Taken 0 Reported Symptoms Increased Work of Breathing 5th minute Oxygen Delivery Method Room Air Pulse Ox (%) 95 Pulse Rate (60-100 beats/min) 112 H Dyspnea Darnell Scale (0-10) 2 Number of Rests Taken 0 Reported Symptoms Increased Work of Breathing 6th minute Oxygen Delivery Method Room Air Pulse Ox (%) 95 Pulse Rate (60-100 beats/min) 114 H Dyspnea Darnell Scale (0-10) 2 Number of Rests Taken 0 Reported Symptoms Increased Work of Breathing Post-test Oxygen Delivery Method Room Air Pulse Ox (%) 95 Pulse Rate (60-100 beats/min) 75 Dyspnea Darnell Scale (0-10) 0 Full Laps Walked 17 Partial Lap, Number of Tiles Walked 37 Total Distance Walked (ft) 1040 Interpretation Interpretation: The patient ambulated 1040 feet over the course of 6 minutes beginning on room air without assistive devices. Pretesting oxygen saturation was noted to be 94% on room air. With ambulation, the yaneth oxygen saturation was 94%. There was no significant exertional oxygen desaturation. Recommendations Recommendations: There is no indication for the use of supplemental oxygen at this time.
== END ==
PROVIDERS: PCP Internal Medicine; Referring Provider Nurse Practitioner Acute Care; Visit Provider Nurse Practitioner Acute Care
DX: R06.00 Dyspnea, unspecified (principal)
CPT/HCPCS: 94618

== ENCOUNTER → 2021-05-16 06:54 | Outpatient (CLI) | payer MEDICAID, SELFPAY ==
[2019-06-07 10:59] VITALS: BMI 33.7
[2021-03-11 08:10] VITALS: BMI 34.2
[2021-05-07 08:13] VITALS: BMI 33.8
--- NOTE | 2021-05-17 08:04 | PFT ---
INTRODUCTION: The patient is a 55-year-old male that presents for pulmonary function studies secondary to a diagnosis of dyspnea. Respiratory therapy reports good patient effort. Bronchodilators were used during testing. INTERPRETATION: Forced expiration spirometry demonstrates the presence of a moderate large airways obstructive ventilatory defect. There was a significant response to aerosolized bronchodilators. Spirograms are of good quality and plateau gradually indicating slow emptying of the lungs. Body plethysmography was performed and revealed a decreased TLC to 6.29 L, 77% of predicted, indicative of a mild restrictive ventilatory impairment. Diffusing capacity by single breath CO is reduced to 67% of predicted. IMPRESSION: Fully reversible moderate mixed ventilatory defect with symmetric reduction in diffusing capacity.
== END ==
PROVIDERS: PCP Internal Medicine; Referring Provider Nurse Practitioner Acute Care; Visit Provider Nurse Practitioner Acute Care
DX: R06.00 Dyspnea, unspecified (principal)
CPT/HCPCS: 94060; 94726; 94729

== ENCOUNTER 2021-06-05 14:03 | Inpatient (IN) | payer MEDICAID, SELFPAY ==
[2019-06-07 10:59] VITALS: BMI 33.7
[2021-06-05] VITALS (24 sets, daily range): BP systolic 81–153; BP diastolic 64–106; PULSE 19–137; RESP 16–134; TEMP 36.1–37.1; O2SAT 85–944; BMI 33.1; BMI 33.0; BMI 33.5
--- NOTE | 2021-06-05 14:20 | EKG12_ITS ---
Test Reason : SOB Blood Pressure : / mmHG Vent. Rate : 144 BPM Atrial Rate : 166 BPM P-R Int : 000 ms QRS Dur : 092 ms QT Int : 272 ms P-R-T Axes : 000 -16 115 degrees QTc Int : 421 ms Atrial fibrillation Abnormal ECG Confirmed by ANNA BARKLEY, HÉCTOR ([id number]), newspaper editor managing SARY OLIVO ([id number]) on 06/10/2021 12:52:26 PM Referred By: HAMIDA Confirmed By:HÉCTOR CASTILLO MD
--- NOTE | 2021-06-05 14:21 | EX.ED.DYSGE1 ---
HPI <Dr. Charles Cage, DO - Last Filed: 06/05/21 16:38> History of Present Illness Chief Complaint: Shortness of Breath Informant: patient Narrative Narrative: 55-year-old male presents to the emergency department with a chief complaint of dyspnea. Patient states he has a history of atrial fibrillation and feels that his heart is really racing fast today. He states that the dyspnea has been ongoing for about 1 week. There is been no change in his chronic cough. He has a history of recurrent small cell lung cancer. He is currently on immunotherapy. He was noted to be 88% at his oncologist office. He was given supplemental oxygen which she states is greatly helping him. He notes increasing nausea in the past week. He notes a chest pressure. Patient reports he has not missed any doses of his Xarelto. He states he has not drank as much as he normally would because he was not feeling well over the weekend. He states that his veins look very flat to him. He states he went camping last week and the heat and the smoke really affected his lungs. He eventually left and came home. He notes that he had T-max 101.3 last week. Labs were drawn at his oncologist office today showed a white count was 7.7 platelet count of 371 and hemoglobin level of 10.2. CMP was essentially negative. [facility] <Dr. Charles Cage, DO - Last Filed: 06/05/21 16:38> [facility] Medical History Abnormal PET scan of colon Adrenal nodule Asthma, moderate persistent Chemotherapy induced neutropenia Chest pain Consolidation of right lower lobe of lung Diabetes mellitus Dyspnea Encounter for education Essential (primary) hypertension Fatigue Hyperlipidemia Longstanding persistent atrial fibrillation Lung cancer Marijuana abuse Nausea Nicotine dependence Nocturia Obesity ALEX (obstructive sleep apnea) Persistent atrial fibrillation Pleural effusion, right Radiation dermatitis Rectal pain Regional lymph node metastasis present 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 classification Home Medications fluticasone propionate 2 spray NASAL DAILY PRN PRN 04/11/16 [History Last Taken Unknown] lidocaine-prilocaine 1 applicatio TP DAILY PRN PRN 30 Days #1 tube 06/01/19 [Rx Last Taken Unknown] rivaroxaban 20 mg tablet 20 mg PO QDAY #30 tablet 04/17/20 [Rx Last Taken Unknown] tiotropium bromide 2.5 mcg/actuation mist for inhalation 2 puff INHALATION DAILY #4 gm 07/25/20 [Rx Last Taken Unknown] ondansetron HCl 8 mg PO Q8H PRN PRN 30 Days #30 tablet 08/23/20 [Rx Last Taken Unknown] prochlorperazine maleate 10 mg PO Q6H PRN PRN 10 Days #30 tablet 08/23/20 [Rx Last Taken Unknown] doxazosin 2 mg tablet 2 mg PO DAILY #90 tablet 12/27/20 [Rx Last Taken Unknown] albuterol sulfate 90 mcg/actuation breath activated powder inhaler 2 inh INHALATION Q4H PRN PRN #1 each 01/21/21 [Rx Last Taken Unknown] fluoxetine 20 mg capsule 60 mg PO DAILY #270 cap 02/05/21 [Rx Last Taken Unknown] Disability Placard #1 ea 03/11/21 [Rx Last Taken Unknown] polyethylene glycol 3350 17 gram oral powder packet 17 g PO DAILY PRN 30 Days #30 packet 05/02/21 [Rx Last Taken Unknown] pravastatin 40 mg tablet 40 mg PO DINNER #90 tablet 05/02/21 [Rx Last Taken Unknown] budesonide-formoterol [Symbicort] 2 puff INHALATION BID 06/05/21 [History Last Taken Unknown] cholecalciferol (vitamin D3) 1,250 mcg PO QWEEK 06/05/21 [History Last Taken Unknown] Allergy/AdvReac Type Severity Reaction Status Date / Time pioglitazone HCl [From Actos] AdvReac Severe Other Verified 06/05/21 13:20 Family History Father CAD (coronary artery disease) Hx CABG Family history of hypertension Family history of hyperlipidemia Hypertension CVA (cerebral vascular accident) Mother , Age 55 Sudden cardiac Family history of hypertension Sister Family history of hypertension Family history of hyperlipidemia Diabetes Grandfather CVA (cerebral vascular accident) Grandmother CVA (cerebral vascular accident) Uncle Lung cancer Surgical History History of cardioversion (03/2016) History of stomach ulcers History of thoracentesis (01/2020) History of tonsillectomy Pilonidal cyst (~1986) PORT PLACEMENT Social History Smoking Status: Unknown if ever smoked alcohol intake: never details: occasional substance use type: marijuana caffeine: Yes Type: carbonated beverages and coffee what type of physical activity do you participate in: none romero/pentecostalism: Yarsani seatbelt use: always do you feel safe at home: Yes ROS <Dr. Charles Cage, DO - Last Filed: 06/05/21 16:38> ROS ED Constitutional Constitutional ED: Denies chills or weight loss Eyes Eyes: Denies change in vision or diplopia ENT ENT ED: Denies ear pain, rhinorrhea or sore throat Cardiovascular Cardiovascular: Reports chest pain and racing heartbeat; Denies orthopnea or palpitations Respiratory/Chest Respiratory/Chest: Reports cough and dyspnea; Denies orthopnea Gastrointestinal Gastrointestinal: Denies abdominal pain, diarrhea, nausea or vomiting Genitourinary Genitourinary ED: Denies dysuria, hematuria or urinary frequency Musculoskeletal Musculoskeletal: Denies arthralgias or myalgias Integumentary Denies abscess or rash Neurologic Neurologic: Denies headache(s) or weakness Psychiatric Psychiatric: Denies anxiety, depression, suicidal ideation or suicidal thoughts Endocrine Endocrinology: Denies polydipsia, polyphagia or polyuria Allergic/Immunologic Allergic/Immunologic ED: Denies mouth swelling, tongue swelling or urticaria EXAM <Dr. Charles Cage, DO - Last Filed: 06/05/21 16:38> Physical Exam Const Vital Signs: 06/05/21 14:04 06/05/21 14:07 06/05/21 14:35 Temperature 97.8 F 97.8 F Temperature Source Temporal Temporal Pulse Rate 129 H 129 H Respiratory Rate 20 H 20 H Respiratory Effort Blood Pressure 97/64 97/64 Blood Pressure Mean 75 75 Pulse Ox 88 88 94 Oxygen Delivery Method Room Air Room Air Room Air Oxygen Flow Rate (L/min) 06/05/21 14:37 06/05/21 14:54 06/05/21 15:01 Temperature Temperature Source Pulse Rate 130 H Respiratory Rate 134 H Respiratory Effort Non-Labored Blood Pressure 81/72 L 110/73 Blood Pressure Mean 75 85 Pulse Ox 96 Oxygen Delivery Method Room Air Nasal Cannula Oxygen Flow Rate (L/min) 2 06/05/21 15:07 06/05/21 16:00 06/05/21 16:11 Temperature 98 F 97 F L Temperature Source Temporal Temporal Pulse Rate 120 H 19 L 127 H Respiratory Rate 29 H 17 18 Respiratory Effort Blood Pressure 110/73 121/89 H Blood Pressure Mean 85 99 Pulse Ox 95 95 96 Oxygen Delivery Method Nasal Cannula Room Air Nasal Cannula Oxygen Flow Rate (L/min) 2 2.5 06/05/21 16:57 06/05/21 17:00 Temperature 98.8 F 98.7 F Temperature Source Temporal Temporal Pulse Rate 112 H 120 H Respiratory Rate 24 H 18 Respiratory Effort Blood Pressure 127/106 H 127/106 H Blood Pressure Mean 113 113 Pulse Ox 944 94 Oxygen Delivery Method Nasal Cannula Nasal Cannula Oxygen Flow Rate (L/min) 2 2 Positive well nourished and well developed General Appearance ED: well developed HEENT Reports normocephalic, head/scalp atraumatic and moist mucous membranes Eyes PERRL and EOMs intact bilaterally Neck no lymphadenopathy, supple and no JVD Chest Wall Chest Narrative: Port site has been accessed appears clean dry and intact Resp normal respiratory effort and clear to auscultation bilaterally Cardio no murmurs Rate: other Other Details: Irregularly irregular tachycardic rhythm GI normal to inspection, nondistended, normoactive bowel sounds and non-tender Palpation: soft Back/Spine no CVA tenderness and normal ROM Extremity normal to inspection General Extremety ED: Yes edema General Extremity: edema Neuro oriented x3 and CN's II-XII intact bilaterally Sensorium / Orientation: alert Motor Exam: strength 5/5 throughout Psych mental status grossly normal Mood & Affect: Negative for depressed or tearful Skin no rashes or lesions noted and no wounds <Dr. Román Richards MD - Last Filed: 06/05/21 17:33> Physical Exam Const Vital Signs: 06/05/21 14:04 06/05/21 14:07 06/05/21 14:35 Temperature 97.8 F 97.8 F Temperature Source Temporal Temporal Pulse Rate 129 H 129 H Respiratory Rate 20 H 20 H Respiratory Effort Blood Pressure 97/64 97/64 Blood Pressure Mean 75 75 Pulse Ox 88 88 94 Oxygen Delivery Method Room Air Room Air Room Air Oxygen Flow Rate (L/min) 06/05/21 14:37 06/05/21 14:54 06/05/21 15:01 Temperature Temperature Source Pulse Rate 130 H Respiratory Rate 134 H Respiratory Effort Non-Labored Blood Pressure 81/72 L 110/73 Blood Pressure Mean 75 85 Pulse Ox 96 Oxygen Delivery Method Room Air Nasal Cannula Oxygen Flow Rate (L/min) 2 06/05/21 15:07 06/05/21 16:00 06/05/21 16:11 Temperature 98 F 97 F L Temperature Source Temporal Temporal Pulse Rate 120 H 19 L 127 H Respiratory Rate 29 H 17 18 Respiratory Effort Blood Pressure 110/73 121/89 H Blood Pressure Mean 85 99 Pulse Ox 95 95 96 Oxygen Delivery Method Nasal Cannula Room Air Nasal Cannula Oxygen Flow Rate (L/min) 2 2.5 06/05/21 16:57 06/05/21 17:00 Temperature 98.8 F 98.7 F Temperature Source Temporal Temporal Pulse Rate 112 H 120 H Respiratory Rate 24 H 18 Respiratory Effort Blood Pressure 127/106 H 127/106 H Blood Pressure Mean 113 113 Pulse Ox 944 94 Oxygen Delivery Method Nasal Cannula Nasal Cannula Oxygen Flow Rate (L/min) 2 2 [facility] <Dr. Charles Cage, DO - Last Filed: 06/05/21 16:38> [facility] Narrative Medical decision making narrative: Beta natruretic peptide is 232. Lactic acid 1.1. Troponin I 7.4. INR 2.5 with a PTT of 49.7. Blood cultures were obtained. Patient received 2 L bolus of IV fluids. Blood pressure has significantly improved. Heart rate has come down to around 110. My interpretation of the chest x-ray is left-sided infiltrates.CTA of the chest was ordered. Results of this is pending. He has received vancomycin and Zosyn. He also received a DuoNeb. Did not really hear any significant wheezing. At this point I will touch base with the hospitalist for admission. Lab Data Attestation: I reviewed the patient's lab results. Labs: Laboratory Results - last 24 hr 06/05/21 06/05/21 06/05/21 14:37 14:37 14:37 PT 26.2 H INR 2.5 APTT 49.7 H Lactic Acid 1.1 Troponin I High Sens 7.4 B-Natriuretic Peptide 06/05/21 14:37 PT INR APTT Lactic Acid Troponin I High Sens B-Natriuretic Peptide 232.2 H Radiography Diagnostic Testing: Radiology Impression Chest CTA 06/05/21 15:34 IMPRESSION: 1. No CT evidence of pulmonary embolism. 2. No change in moderate right pleural effusion and right lung scarring with volume loss. 3. Diffuse bilateral groundglass opacities consistent with subsegmental atelectasis, pneumonitis, pulmonary edema, or ARDS. Imaging features can be seen with Covid 19 pneumonia, though are nonspecific and can occur with a variety of infectious and noninfectious processes. Electronically Signed: Pb Troncoso MD at 17:09 EDT Tel , Service support , EKG Initial EKG: Attestation: I personally reviewed and interpreted this EKG as follows: Comments: Atrial fibrillation with rapid ventricular response of 144 bpm. No concerning features of ACS or ectopy noted <Dr. Román Richards MD - Last Filed: 06/05/21 17:33> [facility] MDM Narrative Medical decision making narrative: To go over for this patient. CT angiography of the chest as below, no evidence of pulmonary embolism. Shows evidence of infectious etiology, patient is already being treated for that. Will be admitted. Lab Data Labs: Laboratory Results - last 24 hr 06/05/21 06/05/21 06/05/21 14:37 14:37 14:37 PT 26.2 H INR 2.5 APTT 49.7 H Lactic Acid 1.1 Troponin I High Sens 7.4 B-Natriuretic Peptide 06/05/21 14:37 PT INR APTT Lactic Acid Troponin I High Sens B-Natriuretic Peptide 232.2 H Radiography Diagnostic Testing: Radiology Impression Chest CTA 06/05/21 15:34 IMPRESSION: 1. No CT evidence of pulmonary embolism. 2. No change in moderate right pleural effusion and right lung scarring with volume loss. 3. Diffuse bilateral groundglass opacities consistent with subsegmental atelectasis, pneumonitis, pulmonary edema, or ARDS. Imaging features can be seen with Covid 19 pneumonia, though are nonspecific and can occur with a variety of infectious and noninfectious processes. Electronically Signed: Pb Troncoso MD at 17:09 EDT Tel , Service support , Discharge Plan Dx/Rx/DC Orders Clinical Impression: Pneumonia, Severe sepsis, Hypoxia, Atrial fibrillation with rapid ventricular response Disposition Disposition: Acute Care Hospital [facility]
[2021-06-05 14:57] LABS: International Normalized Ratio 2.5; Partial Thromboplast Time 49.7 Seconds (24.1-36.2); Prothrombin Time (Protime)PT. 26.2 SECONDS (11.7-14.9)
[2021-06-05] MEDS: 0.9% Normal Saline 1,000 ML 999 ML IV ×2 (15:00→16:14)
[2021-06-05 15:01] LABS: BNP,B-Type NATRIURETIC PEPTIDE 232.2 pg/mL (0-100)
[2021-06-05 15:04] LABS: Troponin-I HS 7.4 pg/mL (3.0-78.5)
[2021-06-05 15:11] LABS: Lactic Acid 1.1 mmol/L (0.4-1.9)
--- NOTE | 2021-06-05 15:13 | ED.RN ---
provider of sepsis alert, no new orders at this time.
--- NOTE | 2021-06-05 15:23 | RAD_ITS ---
STUDY: X-RAY CHEST REASON FOR EXAM: Male, 55 years old. PT CONCERNED HE HAS PNEUMONIA. STATES SOB ON THURSDAY. TECHNIQUE: Single AP portable view of the chest. COMPARISON: Comparison is made with prior examination dated 01/08/2021. FINDINGS: A left-sided portacatheter is in psych unit with the tip at the junction of the superior vena cava and right atrium. Stable pleural parenchymal changes with volume loss in the right hemithorax. New infiltrates in the left lung. Follow-up is recommended. Normal size heart. Normal mediastinum and inge. Normal visualized pulmonary arteries. Normal visualized aortic arch and descending thoracic aorta. There are diffuse degenerative changes of the visualized thoracic spine. Normal visualized ribs, clavicles, and shoulders. There is no demonstrated abnormality of the visualized soft tissue structures of the upper abdomen. RAD/Chest 1 View (Portable) IMPRESSION: New pulmonary infiltrates in the left hemithorax. Stable changes in the right hemithorax. Electronically Signed: Melquiades Stallings MD at 15:35 EDT , Service support ,
--- NOTE | 2021-06-05 15:34 | CT_ITS ---
STUDY: CTA CHEST REASON FOR EXAM: Male, 55 years old. hypoxia RADIATION DOSAGE (If Supplied By Facility): CTDIvol = ( 14.96 ) mGy, DLP = ( 603.09 ) mGycm TECHNIQUE: The examination was performed with the intravenous administration of IV 100mL [id number]-[id number]. Post-processing of the angiographic images was performed, with multiplanar reformation and 3D reconstruction. Individualized dose optimization techniques were used for this CT. COMPARISON: Chest x-ray earlier today, CT 03/22/2021 FINDINGS: Left internal jugular chest port. Normal enhancement of the main pulmonary artery and right and left pulmonary arteries. Normal enhancement of the bilateral peripheral pulmonary arteries. There is no demonstrated pulmonary embolism. Normal thoracic aorta and visualized great vessels. There is no demonstrated aortic dissection. Normal heart and pericardium. Normal mediastinum. Normal hilar regions. Normal visualized trachea and bronchi. The lungs are well expanded. Bilateral diffuse groundglass opacities consistent with subsegmental atelectasis, pneumonitis, pulmonary edema, or ARDS. Moderate right pleural effusion with right lung scarring which is unchanged. Normal chest wall structures. Normal osseous structures. Normal visualized upper abdomen. CT/CTA Chest W/WO Contrast IMPRESSION: 1. No CT evidence of pulmonary embolism. 2. No change in moderate right pleural effusion and right lung scarring with volume loss. 3. Diffuse bilateral groundglass opacities consistent with subsegmental atelectasis, pneumonitis, pulmonary edema, or ARDS. Imaging features can be seen with Covid 19 pneumonia, though are nonspecific and can occur with a variety of infectious and noninfectious processes. Electronically Signed: Pb Troncoso MD at 17:09 EDT Tel , Service support ,
[2021-06-05] MEDS: Ipratropium/Albuterol Sulfate 3 ML AMPUL.NEB INHALATION ×2 (16:07→21:10)
--- NOTE | 2021-06-05 17:16 | PCM.HP.STD ---
Documented by User: ROBERT Manuel 06/05/21 17:46 HPI - General General Date of Admission: 06/05/21 Date of Service: 06/05/21 Chief Complaint: Dyspnea HPI Narrative RONALDO ADAM, is a 55 M who presents with complaints of shortness of breath. Patient states that he has been dyspneic x1 week and has been experiencing racing heart during this time. Previous to arrival at ER patient was noted to be hypoxic at 88% at oncologist office which was improved by supplemental oxygen. Patient reports a history of small cell lung cancer for which he receives immunotherapy, last treatment May 28, 2021. Patient states that he has not had any change to his chronic cough. Patient also reports fever, chest pressure, nausea. Patient denies chest pain, vomiting, diarrhea, constipation. [facility] Medical History Abnormal PET scan of colon Adrenal nodule Asthma, moderate persistent Atrial fibrillation BiPAP (biphasic positive airway pressure) dependence Bipolar disorder Chemotherapy induced neutropenia Chest pain Consolidation of right lower lobe of lung Diabetes mellitus Dyspnea Encounter for education Essential (primary) hypertension Fatigue Hyperlipidemia Irregular heart beat Longstanding persistent atrial fibrillation Lung cancer Marijuana abuse Migraines Nausea Nicotine dependence Nocturia Obesity ALEX (obstructive sleep apnea) Persistent atrial fibrillation Pleural effusion, right Radiation dermatitis Rectal pain Regional lymph node metastasis present Sleep apnea Smoker 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 classification Home Medications fluticasone propionate 2 spray NASAL DAILY PRN PRN 04/11/16 [History Last Taken Unknown] rivaroxaban 20 mg tablet 20 mg PO QDAY #30 tablet 04/17/20 [Rx Last Taken 06/05/21] tiotropium bromide 2.5 mcg/actuation mist for inhalation 2 puff INHALATION DAILY #4 gm 07/25/20 [Rx Last Taken 06/05/21] ondansetron HCl 8 mg PO Q8H PRN PRN 30 Days #30 tablet 08/23/20 [Rx Last Taken Unknown] prochlorperazine maleate 10 mg PO Q6H PRN PRN 10 Days #30 tablet 08/23/20 [Rx Last Taken Unknown] doxazosin 2 mg tablet 2 mg PO DAILY #90 tablet 12/27/20 [Rx Last Taken 06/05/21] albuterol sulfate 90 mcg/actuation breath activated powder inhaler 2 inh INHALATION Q4H PRN PRN #1 each 01/21/21 [Rx Last Taken 06/05/21] fluoxetine 20 mg capsule 60 mg PO DAILY #270 cap 02/05/21 [Rx Last Taken 06/05/21] Disability Placard #1 ea 03/11/21 [Rx Last Taken Unknown] polyethylene glycol 3350 17 gram oral powder packet 17 g PO DAILY PRN 30 Days #30 packet 05/02/21 [Rx Last Taken Unknown] pravastatin 40 mg tablet 40 mg PO DINNER #90 tablet 05/02/21 [Rx Last Taken 06/05/21] budesonide-formoterol [Symbicort] 2 puff INHALATION BID 06/05/21 [History Last Taken 06/05/21] cholecalciferol (vitamin D3) 1,250 mcg PO SA 06/05/21 [History Last Taken 06/01/21] Allergy/AdvReac Type Severity Reaction Status Date / Time pioglitazone HCl [From Actos] AdvReac Severe Other Verified 06/05/21 13:20 Family History Father CAD (coronary artery disease) Hx CABG Family history of hypertension Family history of hyperlipidemia Hypertension CVA (cerebral vascular accident) Mother , Age 55 Sudden cardiac Family history of hypertension Sister Family history of hypertension Family history of hyperlipidemia Diabetes Grandfather CVA (cerebral vascular accident) Grandmother CVA (cerebral vascular accident) Uncle Lung cancer Surgical History History of cardioversion (03/2016) History of stomach ulcers History of thoracentesis (01/2020) History of tonsillectomy Pilonidal cyst (~1986) PORT PLACEMENT Social History Smoking Status: Unknown if ever smoked alcohol intake: never details: occasional substance use type: marijuana caffeine: Yes Type: carbonated beverages and coffee what type of physical activity do you participate in: none romero/denominational: Anglican seatbelt use: always do you feel safe at home: Yes ROS Constitutional Constitutional: Reports fever(s) and malaise; Denies chills or weakness Cardiovascular Cardiovascular: Reports dyspnea, nausea and racing heartbeat; Denies chest pain Respiratory/Chest Respiratory/Chest: Reports cough; Denies hemoptysis Gastrointestinal Gastrointestinal: Reports nausea; Denies abdominal pain, constipation, diarrhea or vomiting Genitourinary Genitourinary: Denies dysuria Musculoskeletal Musculoskeletal: Denies back pain, extremity pain, joint pain or joint stiffness Integumentary Integumentary: Denies dry skin Neurologic Neurologic: Denies abnormal gait, abnormal speech, confusion, dizziness or focal weakness Psychiatric Psychiatric: Denies anxiety or depression Endocrine Endocrinology: Denies change in body appearance Hematologic/Lymphatic Hematologic/Lymphatic: Denies easy bleeding or easy bruising Vital Signs Vital Signs Vital Signs: 06/05/21 14:04 06/05/21 14:07 06/05/21 14:35 Temperature 97.8 F 97.8 F Temperature Source Temporal Temporal Pulse Rate 129 H 129 H Respiratory Rate 20 H 20 H Respiratory Effort Blood Pressure 97/64 97/64 Blood Pressure Mean 75 75 Pulse Ox 88 88 94 Oxygen Delivery Method Room Air Room Air Room Air Oxygen Flow Rate (L/min) 06/05/21 14:37 06/05/21 14:54 06/05/21 15:01 Temperature Temperature Source Pulse Rate 130 H Respiratory Rate 134 H Respiratory Effort Non-Labored Blood Pressure 81/72 L 110/73 Blood Pressure Mean 75 85 Pulse Ox 96 Oxygen Delivery Method Room Air Nasal Cannula Oxygen Flow Rate (L/min) 2 06/05/21 15:07 06/05/21 16:00 06/05/21 16:11 Temperature 98 F 97 F L Temperature Source Temporal Temporal Pulse Rate 120 H 19 L 127 H Respiratory Rate 29 H 17 18 Respiratory Effort Blood Pressure 110/73 121/89 H Blood Pressure Mean 85 99 Pulse Ox 95 95 96 Oxygen Delivery Method Nasal Cannula Room Air Nasal Cannula Oxygen Flow Rate (L/min) 2 2.5 06/05/21 16:57 06/05/21 17:00 Temperature 98.8 F 98.7 F Temperature Source Temporal Temporal Pulse Rate 112 H 120 H Respiratory Rate 24 H 18 Respiratory Effort Blood Pressure 127/106 H 127/106 H Blood Pressure Mean 113 113 Pulse Ox 944 94 Oxygen Delivery Method Nasal Cannula Nasal Cannula Oxygen Flow Rate (L/min) 2 2 Weight Weight: 272 lb Body Mass Index (BMI) 33.0 Physical Exam Const alert and oriented x3 General Appearance: cooperative HEENT normocephalic and head/scalp atraumatic Eyes conjunctivae normal and no scleral icterus Neck no lymphadenopathy, supple and no JVD General: trachea midline Resp normal respiratory effort and normal air movement Auscultation: diminished lung sounds Cardio S1 normal heart sound and S2 normal heart sound Rate: tachycardic Rhythm: abnormal rhythm irregularly irregular GI normal to inspection, nondistended, normoactive bowel sounds, soft to palpation and non-tender Extremity normal capillary refill and no clubbing, cyanosis or edema General Extremity: no tenderness to palpation of joints or extremities Skin General Skin Exam: no breakdown and turgor normal Lesions: no lesions Rashes: no rashes Neuro no focal motor deficits and no sensory deficits noted Speech: speech normal Motor Exam: general weakness Psych thought process normal, cooperative and affect normal Appearance: appropriate Results Lab / Micro Data Labs: Laboratory Results - last 24 hr 06/05/21 06/05/21 06/05/21 14:37 14:37 14:37 PT 26.2 H INR 2.5 APTT 49.7 H Lactic Acid 1.1 Troponin I High Sens 7.4 B-Natriuretic Peptide 06/05/21 14:37 PT INR APTT Lactic Acid Troponin I High Sens B-Natriuretic Peptide 232.2 H Radiology Impression Chest CTA 06/05/21 15:34 IMPRESSION: 1. No CT evidence of pulmonary embolism. 2. No change in moderate right pleural effusion and right lung scarring with volume loss. 3. Diffuse bilateral groundglass opacities consistent with subsegmental atelectasis, pneumonitis, pulmonary edema, or ARDS. Imaging features can be seen with Covid 19 pneumonia, though are nonspecific and can occur with a variety of infectious and noninfectious processes. Electronically Signed: Pb Troncoso MD at 17:09 EDT Tel , Service support , Assessment & Plan Assessment/Plan (1) Pneumonia: QUALIFIERS: Laterality: bilateral Lung location: unspecified part of lung Pneumonia type: due to unspecified organism Qualified Code(s): J18.9 - Pneumonia, unspecified organism (2) Atrial fibrillation with rapid ventricular response: PLAN: 1. Pneumonia -Admit to PCU for cardiac monitoring -Continue on Vanco and Zosyn, first dose given in ER -Urine strep and Legionella ordered -Encourage incentive spirometry -Oxygen per protocol -CBC and BMP ordered daily -PT and OT to eval and treat -Scheduled duo nebs with as needed albuterol nebulizer treatments ordered 2. Atrial fibrillation with rapid ventricular response -Continuous cardiac monitoring -Echo ordered for a.m. -Cardizem bolus with continuous Cardizem drip ordered -Cardiac heart healthy diet ordered -Consult cardiology -Patient currently on Xarelto, will continue 3. Anxiety and depression -Continue fluoxetine 4. Essential hypertension -Continue doxazosin -Vital signs as ordered per protocol 5. Hyperlipidemia -Continue atorvastatin 6. Small cell lung cancer, right upper lobe -Per patient report currently stable, patient receives immunotherapy last dose 05/28/2021 -Patient quit smoking August 2020 -We will continue as needed antiemetics per home regimen DVT prophylaxis-SCDs This patient was seen by Taylor Guzman NP-C under the supervision of Dr. Broussard. Documented by User: Dr. Fredi Broussard DO 06/05/21 18:38 HPI - General General Date of Admission: 06/05/21 Date of Service: 06/05/21 Chief Complaint: shortness of breath HPI Narrative 55-year-old male presents with progressive shortness of breath. Has been ongoing for a week. At home was having a fever. Resented to the emergency room hypoxic and a subsequent improved with submental oxygen. Patient had a CAT scan that showed no PE but did show areas are concerning for pneumonia or ARDS. Patient did receive vancomycin and Pipracil and tazobactam. Patient was also in atrial fibrillation with RVR which she has not had before. Patient has been vaccinated for COVID-19. Patient had recently done camping trip but was not feeling well while he was there. [facility] Medical History Abnormal PET scan of colon Adrenal nodule Asthma, moderate persistent Atrial fibrillation BiPAP (biphasic positive airway pressure) dependence Bipolar disorder Chemotherapy induced neutropenia Chest pain Consolidation of right lower lobe of lung Diabetes mellitus Dyspnea Encounter for education Essential (primary) hypertension Fatigue Hyperlipidemia Irregular heart beat Longstanding persistent atrial fibrillation Lung cancer Marijuana abuse Migraines Nausea Nicotine dependence Nocturia Obesity ALEX (obstructive sleep apnea) Persistent atrial fibrillation Pleural effusion, right Radiation dermatitis Rectal pain Regional lymph node metastasis present Sleep apnea Smoker 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 classification Home Medications fluticasone propionate 2 spray NASAL DAILY PRN PRN 04/11/16 [History Last Taken Unknown] rivaroxaban 20 mg tablet 20 mg PO QDAY #30 tablet 04/17/20 [Rx Last Taken 06/05/21] tiotropium bromide 2.5 mcg/actuation mist for inhalation 2 puff INHALATION DAILY #4 gm 07/25/20 [Rx Last Taken 06/05/21] ondansetron HCl 8 mg PO Q8H PRN PRN 30 Days #30 tablet 08/23/20 [Rx Last Taken Unknown] prochlorperazine maleate 10 mg PO Q6H PRN PRN 10 Days #30 tablet 08/23/20 [Rx Last Taken Unknown] doxazosin 2 mg tablet 2 mg PO DAILY #90 tablet 12/27/20 [Rx Last Taken 06/05/21] albuterol sulfate 90 mcg/actuation breath activated powder inhaler 2 inh INHALATION Q4H PRN PRN #1 each 01/21/21 [Rx Last Taken 06/05/21] fluoxetine 20 mg capsule 60 mg PO DAILY #270 cap 02/05/21 [Rx Last Taken 06/05/21] Disability Placard #1 ea 03/11/21 [Rx Last Taken Unknown] polyethylene glycol 3350 17 gram oral powder packet 17 g PO DAILY PRN 30 Days #30 packet 05/02/21 [Rx Last Taken Unknown] pravastatin 40 mg tablet 40 mg PO DINNER #90 tablet 05/02/21 [Rx Last Taken 06/05/21] budesonide-formoterol [Symbicort] 2 puff INHALATION BID 06/05/21 [History Last Taken 06/05/21] cholecalciferol (vitamin D3) 1,250 mcg PO SA 06/05/21 [History Last Taken 06/01/21] Allergy/AdvReac Type Severity Reaction Status Date / Time pioglitazone HCl [From Actos] AdvReac Severe Other Verified 06/05/21 13:20 Family History Father CAD (coronary artery disease) Hx CABG Family history of hypertension Family history of hyperlipidemia Hypertension CVA (cerebral vascular accident) Mother , Age 55 Sudden cardiac Family history of hypertension Sister Family history of hypertension Family history of hyperlipidemia Diabetes Grandfather CVA (cerebral vascular accident) Grandmother CVA (cerebral vascular accident) Uncle Lung cancer Surgical History History of cardioversion (03/2016) History of stomach ulcers History of thoracentesis (01/2020) History of tonsillectomy Pilonidal cyst (~1986) PORT PLACEMENT Social History Smoking Status: Unknown if ever smoked alcohol intake: never details: occasional substance use type: marijuana caffeine: Yes Type: carbonated beverages and coffee what type of physical activity do you participate in: none romero/denominational: Anglican seatbelt use: always do you feel safe at home: Yes ROS ROS Narrative All review of systems were negative except as mentioned above in the history of present illness and the other review of systems. Physical Exam Narrative No respiratory stress. No conversational dyspnea. Patient goes on a lot of tangents but is very reorientable and appropriate. Nontoxic-appearing. Const alert and no apparent distress General Appearance: cooperative HEENT normocephalic and head/scalp atraumatic Eyes Eyes Narrative: No icterus Neck supple and no JVD Resp normal respiratory effort Resp Narrative: Coarse breath sounds bilaterally Cardio regular rate, regular rhythm, S1 normal heart sound and S2 normal heart sound GI normal to inspection, nondistended, normoactive bowel sounds, soft to palpation, non-tender and non-distended Extremity no clubbing, cyanosis or edema Psych affect normal Appearance: appropriate Results Lab / Micro Data Attestation: I reviewed the patient's lab results. Labs: CBC: White count 7.7, hemoglobin 10.2 and platelets of 371 INR 2.5 BMP: Sodium 135, potassium 4.1, chloride 98 creatinine 0.91 High-sensitivity troponin of 7.4 BNP 232.2 COVID-[address] of the chest personally reviewed and shows a right lower lobe pleural effusion. Groundglass opacity bilaterally but more prominent on the left emphysematous changes. Effusion was present back CAT scan from March 20 but does appear to be more prominent now. The groundglass opacity was not present at that time. Assessment & Plan Assessment/Plan (1) Hypoxia: (2) Pleural effusion, right: (3) Pneumonia: PLAN: 1. Pneumonia Presumed pneumococcal given the extent of it we will treat him with broad-spectrum antibiotics with vancomycin and Pipracil/tazobactam. Check urinary antigens for Streptococcus and Legionella Follow-up COVID-19 testing. Patient has been vaccinated for COVID-19 but certainly is immunocompromise and could be resistant susceptible to recurrent or new delta variance. Pulmonary toilet Patient does not have a white count nor fever at this time but was having fever apparently as outpatient. Other possibilities could be ARDS versus COVID-19 versus CHF versus radiation pneumonitis. Patient echo June 2020 where his EF was 60% at that time 2. A. fib with RVR Exacerbated due to the underlying pulmonary process Not on any rate controlling medication at baseline Will bolus with diltiazem and start drip Patient already anticoagulated on rivaroxaban 3. Acute hypoxic respiratory insufficiency Pulse ox 88% on room air when he presented. Currently stable on 2 L nasal cannula. Wean oxygen as tolerated 4. Lung cancer, metastatic small cell Stage IIIb Complicates overall care and recovery Follow-up with oncology 5. VTE prophylaxis: Not indicated as patient is already anticoagulated. Charges/Coding Visit Charges Inpatient E&M: 39246 Init Hosp L3
--- NOTE | 2021-06-05 18:00 | ECHOCS_ITS ---
Reason For Study: AFIB/FLUTTER Procedure This was a 2D Doppler, Color Flow transthoracic echocardiogram. The study was technically difficult. Due to body habitus. Contrast injection was performed. Exam performed portable in patient room. Left Ventricle Normal left ventricle. Left ventricular systolic function is normal. The estimated ejection fraction is 55 %. No regional wall motion abnormalities noted. Right Ventricle Normal RV size. Normal systolic function. Atria No thrombus is detected in the left atrial appendage. Mitral Valve Normal mitral valve. Tricuspid Valve Normal tricuspid valve. Aortic Valve The aortic valve is not well visualized. Great Vessels Normal aortic root. The pulmonary artery is normal size. Normal inferior vena cava. Pericardium/Pleural No pericardial effusion. Medication Diluted definity 4.0ml given slow IV push to enhance endocardial definition. MMode/2D Measurements & Calculations Ao root diam: 3.8 cm LAV(MOD-bp): 109.3 ml LVAd ap4: 36.0 cm2 LAV(MOD-bp) Indexed: 43.1 ml/m2 LVLd ap4: 9.1 cm LAV(MOD-sp2): 103.8 ml EDV(MOD-sp4): 115.7 ml LAV(MOD-sp4): 110.2 ml EDV(sp4-el): 121.3 ml LVAs ap4: 20.5 cm2 LVLs ap4: 7.8 cm ESV(MOD-sp4): 43.8 ml ESV(sp4-el): 45.9 ml EF(MOD-sp4): 62.2 % EF(sp4-el): 62.2 % LVAd ap2: 46.1 cm2 SV(MOD-sp4): 71.9 ml SV(MOD-sp2): 97.6 ml LVLd ap2: 10.3 cm EDV(MOD-sp2): 163.4 ml EDV(sp2-el): 174.4 ml LVAs ap2: 26.4 cm2 LVLs ap2: 8.6 cm ESV(MOD-sp2): 65.7 ml ESV(sp2-el): 68.3 ml EF(MOD-sp2): 59.8 % SV(sp4-el): 75.4 ml LA dimension(2D): 4.3 cm LA A4 area: 30.9 cm2 RA A4 area: 22.9 cm2 Doppler Measurements & Calculations MV E max raad: 115.3 cm/sec Ao V2 max: 124.8 cm/sec LV V1 max: 96.4 cm/sec Ao max P.2 mmHg LV V1 max P.7 mmHg ECHO/Echo Complete W/ Contrast Interpretation Summary Normal left ventricle. Left ventricular systolic function is normal. The estimated ejection fraction is 55 %. Contrast injection was performed. Ordering Physician: Taylor Guzman Referring Physician: Lizzeth Velasquez Performed By: Gardenia Mayers RDCS, RVT
[2021-06-05] MEDS: dilTIAZem 25 MG/5 ML Vial 10 MG IV BOLUS (18:38)
[2021-06-05] MEDS: 0.9% Saline Lock 10 ML Syringe IV ×3 (18:38→21:46)
--- NOTE | 2021-06-05 18:56 | PCM.CONS.C ---
Assessment & Plan Assessment/Plan (1) Atrial fibrillation with rapid ventricular response: PLAN: He does have a known history of atrial fibrillation with a controlled ventricular response rate. He has failed DC cardioversion previously and has been relegated to rate control and anticoagulation. I would recommend that he continue with his anticoagulation regimen at this time. He is being started on intravenous diltiazem for rate control and this should be continued and transitioned eventually to his beta-rashi. (2) Dyspnea: QUALIFIERS: Dyspnea type: dyspnea on exertion Qualified Code(s): R06.00 - Dyspnea, unspecified PLAN: He does have dyspnea which appears to be mild diastolic dysfunction, and congestive heart failure. I would recommend a regimen of diuresis as he improves from his lung condition. (3) Essential (primary) hypertension: PLAN: His blood pressure appears to be stable at this time I would not recommend that we make any major changes. Thank you for allowing me to participate in the care of your patient. Please don't hesitate to call if any issues arise. HPI Consult Data Date of Consult: 06/05/21 HPI Narrative HPI Narrative: RONALDO ADAM, is a 55 M who presents with progressive shortness of breath which has been going on for approximately a week. He has also noted that he has been having fever which has been ongoing. He does have a history of non-small cell carcinoma. He was noted to be hypoxic at his oncologist office and therefore was sent to the emergency room. In the emergency room he was noted to be in atrial fibrillation with rapid ventricular response rate which was apparently new for him. A chest x-ray demonstrated evidence of a right pleural effusion and a CAT scan of the chest confirmed the same, with no pulmonary emboli, with diffuse groundglass changes noted. He was started on intravenous antibiotics. He apparently has been vaccinated against COVID-19 but recently went on a camping trip. He denies any chest pain. He does have a history of chronic persistent atrial fibrillation with a controlled ventricular response rate and preserved ejection fraction. He had an echocardiogram performed in June 2020 demonstrating preserved ejection fraction and left atrial enlargement. [facility] Medical History Abnormal PET scan of colon Adrenal nodule Asthma, moderate persistent Atrial fibrillation BiPAP (biphasic positive airway pressure) dependence Bipolar disorder Chemotherapy induced neutropenia Chest pain Consolidation of right lower lobe of lung Diabetes mellitus Dyspnea Encounter for education Essential (primary) hypertension Fatigue Hyperlipidemia Irregular heart beat Longstanding persistent atrial fibrillation Lung cancer Marijuana abuse Migraines Nausea Nicotine dependence Nocturia Obesity ALEX (obstructive sleep apnea) Persistent atrial fibrillation Pleural effusion, right Radiation dermatitis Rectal pain Regional lymph node metastasis present Sleep apnea Smoker 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 classification Home Medications fluticasone propionate 2 spray NASAL DAILY PRN PRN 04/11/16 [History Last Taken Unknown] rivaroxaban 20 mg tablet 20 mg PO QDAY #30 tablet 04/17/20 [Rx Last Taken 06/05/21] tiotropium bromide 2.5 mcg/actuation mist for inhalation 2 puff INHALATION DAILY #4 gm 07/25/20 [Rx Last Taken 06/05/21] ondansetron HCl 8 mg PO Q8H PRN PRN 30 Days #30 tablet 08/23/20 [Rx Last Taken Unknown] prochlorperazine maleate 10 mg PO Q6H PRN PRN 10 Days #30 tablet 08/23/20 [Rx Last Taken Unknown] doxazosin 2 mg tablet 2 mg PO DAILY #90 tablet 12/27/20 [Rx Last Taken 06/05/21] albuterol sulfate 90 mcg/actuation breath activated powder inhaler 2 inh INHALATION Q4H PRN PRN #1 each 01/21/21 [Rx Last Taken 06/05/21] fluoxetine 20 mg capsule 60 mg PO DAILY #270 cap 02/05/21 [Rx Last Taken 06/05/21] Disability Placard #1 ea 03/11/21 [Rx Last Taken Unknown] polyethylene glycol 3350 17 gram oral powder packet 17 g PO DAILY PRN 30 Days #30 packet 05/02/21 [Rx Last Taken Unknown] pravastatin 40 mg tablet 40 mg PO DINNER #90 tablet 05/02/21 [Rx Last Taken 06/05/21] budesonide-formoterol [Symbicort] 2 puff INHALATION BID 06/05/21 [History Last Taken 06/05/21] cholecalciferol (vitamin D3) 1,250 mcg PO SA 06/05/21 [History Last Taken 06/01/21] Allergy/AdvReac Type Severity Reaction Status Date / Time pioglitazone HCl [From Actos] AdvReac Severe Other Verified 06/05/21 13:20 Family History Father CAD (coronary artery disease) Hx CABG Family history of hypertension Family history of hyperlipidemia Hypertension CVA (cerebral vascular accident) Mother , Age 55 Sudden cardiac Family history of hypertension Sister Family history of hypertension Family history of hyperlipidemia Diabetes Grandfather CVA (cerebral vascular accident) Grandmother CVA (cerebral vascular accident) Uncle Lung cancer Surgical History History of cardioversion (03/2016) History of stomach ulcers History of thoracentesis (01/2020) History of tonsillectomy Pilonidal cyst (~1986) PORT PLACEMENT Social History Smoking Status: Unknown if ever smoked alcohol intake: never details: occasional substance use type: marijuana caffeine: Yes Type: carbonated beverages and coffee what type of physical activity do you participate in: none romero/taoist: Sikhism seatbelt use: always do you feel safe at home: Yes ROS Constitutional Constitutional: Denies fever(s) or weight loss Eyes Eyes: Reports as per HPI ENT HEENT: Reports as per HPI Cardiovascular Cardiovascular: Reports other Respiratory/Chest Respiratory/Chest: Reports other Gastrointestinal Gastrointestinal: Denies change in bowel habits, nausea, vomiting or weight changes Genitourinary Genitourinary: Denies difficulty urinating Musculoskeletal Musculoskeletal: Denies joint stiffness or muscle weakness Integumentary Integumentary: Denies lesions Neurologic Neurologic: Denies dizziness or syncope Psychiatric Psychiatric: Denies anxiety Endocrine Endocrinology: Denies excessive sweating or fatigue Hematologic/Lymphatic Hematologic/Lymphatic: Denies anemia Allergic/Immunologic Allergic/Immunologic: Denies seasonal rhinorrhea Physical Exam Const oriented x3 and healthy appearing Orientation / Consciousness: awake HEENT normocephalic Eyes PERRL and conjunctivae normal Neck supple, no JVD and no carotid bruits Chest inspection of chest normal Resp normal respiratory effort and clear to auscultation bilaterally Cardio Palpation: normal PMI Rate: regular rate Rhythm: abnormal rhythm irregularly irregular Heart Sounds: S1 normal and S2 normal Peripheral Pulses: pulses 2+ throughout GI normal to inspection, nondistended, normoactive bowel sounds Extremity normal to inspection and no clubbing, cyanosis or edema Psych mental status grossly normal Objective Data Vital Signs: Vital Signs Temp Pulse Resp BP Pulse Ox 97.9 F 114 H 16 126/80 H 94 06/05/21 18:45 06/05/21 18:45 06/05/21 18:45 06/05/21 18:45 06/05/21 18:45 Oxygen Flow Rate (L/min) 3 Oxygen Delivery Method Nasal Cannula Weight: 275 lb Body Mass Index (BMI) 33.5 Intake & Output: Intake and Output for Last 24 Hours 06/03/21 06/04/21 06/05/21 23:59 23:59 23:59 Intake Total 2099 Balance 2099 Lab / Micro Data Labs: Laboratory Results - last 24 hr 06/05/21 06/05/21 06/05/21 14:37 14:37 14:37 PT 26.2 H INR 2.5 APTT 49.7 H Lactic Acid 1.1 Troponin I High Sens 7.4 B-Natriuretic Peptide 06/05/21 14:37 PT INR APTT Lactic Acid Troponin I High Sens B-Natriuretic Peptide 232.2 H Cardiology Labs/Tests 06/05/21 14:37: PT 26.2 H, INR 2.5, APTT 49.7 H 06/05/21 14:37: Lactic Acid 1.1 06/05/21 14:37: B-Natriuretic Peptide 232.2 H Rhythm: Persistent atrial fibrillation with a controlled rate EKG: ECHO: Preserved ejection fraction of 60% from June 2020 Stress Test: Cardiac Cath: PCI: CT Surgery: Holter monitor: EPS: PPM: CXR: Chest CT Scan: Radiography Diagnostic Testing: Radiology Impression Chest CTA 06/05/21 15:34 IMPRESSION: 1. No CT evidence of pulmonary embolism. 2. No change in moderate right pleural effusion and right lung scarring with volume loss. 3. Diffuse bilateral groundglass opacities consistent with subsegmental atelectasis, pneumonitis, pulmonary edema, or ARDS. Imaging features can be seen with Covid 19 pneumonia, though are nonspecific and can occur with a variety of infectious and noninfectious processes. Electronically Signed: Pb Troncoso MD at 17:09 EDT Tel , Service support ,
[2021-06-05 19:45] LABS: Anion Gap 5 (5-15); BUN 9 mg/dL (7-18); BUN/Creat Ratio 9.6 RATIO (10-20); Calcium,Total 9.8 mg/dL (8.5-10.1); Chloride 100 mmol/L (98-107); Creatinine, Serum 0.94 mg/dL (0.70-1.30); EST Glomerular Filtration Rate 88 mL/min (>60); Est Glom Filt Rate - Afr Amer 107 mL/min (>60); Estimated Creatinine Clearance 107.73 ml/min; Glucose 105 mg/dL (74-106); Potassium 4.2 mmol/L (3.5-5.1); Sodium Level 133 mmol/L (136-145)
--- NOTE | 2021-06-05 20:02 | PCM.RX.CS ---
Consult Pharmacy has been consulted to manage selected antiobiotic: Vancomycin Type of Consult: New start Labs: Sodium 133 mmol/L (136-145) L 06/05/21 14:37 Potassium 4.2 mmol/L (3.5-5.1) 06/05/21 14:37 Chloride 100 mmol/L (98-107) 06/05/21 14:37 Carbon Dioxide 28.0 mmol/L (21.0-32.0) 06/05/21 14:37 Anion Gap 5 (5-15) 06/05/21 14:37 BUN 9 mg/dL (7-18) 06/05/21 14:37 Creatinine 0.94 mg/dL (0.70-1.30) 06/05/21 14:37 Est GFR (MDRD) Af Amer 107 mL/min (>60) 06/05/21 14:37 Est GFR (MDRD) Non-Af 88 mL/min (>60) 06/05/21 14:37 BUN/Creatinine Ratio 9.6 RATIO (10-20) L 06/05/21 14:37 Glucose 105 mg/dL (74-106) 06/05/21 14:37 Goal Trough: 15-20 mcg/mL Pharmacy Plan for Drug Dosing: NEW START IV VANCOMYCIN Consulting Physician: Taylor Guzman NP Indication: Pneumonia Goal Trough: 15-20 SrCr: 0.94 CrCl: 107 mL/min Comments: 22g x1 in ED 06/05 @1720 Vancomcyin Dose: 1500 mg IV Q8h to start 06/06/21 @0100 Pending Level: 06/06/21 @1630, prior to 4th total dose per protocol Pharmacy Service will continue to monitor and adjust dosing as required.
[2021-06-06] VITALS (42 sets, daily range): BP systolic 86–148; BP diastolic 50–104; PULSE 80–125; RESP 15–36; TEMP 36.6–37.1; O2SAT 50–98; BMI 33.5
[2021-06-06] MEDS: Ipratropium/Albuterol Sulfate 3 ML AMPUL.NEB INHALATION ×6 (00:18→20:45)
[2021-06-06 05:44] LABS: Absolute Lymphocyte Count 0.96 X10^3/uL (0.83-4.51); Absolute Neutrophil Count 6.3 X10^3/uL (2.0-7.7); Basophil# 0.03 X10^3/uL; Basophil% 0.4 % (0-1); Eosinophils% 4.8 % (0-5); Hematocrit 31.9 % (40-54); Hemoglobin 9.6 g/dL (13.0-16.5); Lymphocyte # 0.96 X10^3/ul (0.83-4.51); Lymphocyte % 11.4 % (19-41); Mean Corp Hgb Conc 30.1 g/dL (32-36); Mean Corpuscular Hgb 27.5 pg (27.0-32.0); Mean Corpuscular Volume 91.4 fL (80-94); Mean Platelet Vol. 9.6 fl (6.2-12.0); Monocyte# 0.66 X10^3/uL; Monocyte% 7.8 % (0-10); NRBC Flagged by Analyzer 0 % (0-5); Neutrophil # 6.33 X10^3/uL (2.7-7.7); Neutrophil % 75.1 % (47-70); Platelet Count 335 K/mm3 (150-450); RBC Distribution Width CV 16.1 % (11.6-14.6); Red Blood Count 3.49 M/mm3 (4.6-6.2); White Blood Count 8.4 K/mm3 (4.4-11.0)
[2021-06-06 06:06] LABS: Anion Gap 6 (5-15); BUN 7 mg/dL (7-18); Calcium,Total 9.3 mg/dL (8.5-10.1); Chloride 102 mmol/L (98-107); Creatinine, Serum 0.78 mg/dL (0.70-1.30); EST Glomerular Filtration Rate 109 mL/min (>60); Est Glom Filt Rate - Afr Amer 132 mL/min (>60); Estimated Creatinine Clearance 129.83 ml/min; Glucose 122 mg/dL (74-106); Potassium 3.9 mmol/L (3.5-5.1); Sodium Level 136 mmol/L (136-145)
[2021-06-06] MEDS: Acetaminophen 325 MG Tablet 650 MG PO ×3 (06:59→21:34)
[2021-06-06] MEDS: Budesonide Respules 0.5 MG/2 ML AMPUL.NEB. INHALATION ×2 (07:36→20:45)
--- NOTE | 2021-06-06 07:44 | PCM.PN.CARD ---
Subjective Subjective Patient seen and evaluated. Appears to be doing well. Objective Data Vital Signs: Vital Signs Temp Pulse Resp BP Pulse Ox 97.8 F 95 28 H 134/82 H 93 06/06/21 07:00 06/06/21 07:00 06/06/21 07:00 06/06/21 07:00 06/06/21 07:00 Oxygen Flow Rate (L/min) 4 Oxygen Delivery Method Venturi Mask Weight: 275 lb Body Mass Index (BMI) 33.5 Intake & Output: Intake and Output for Last 24 Hours 06/04/21 06/05/21 06/06/21 23:59 23:59 23:59 Intake Total 2806.25 / 3213.75 1356.50 / 1356.50 Output Total 1780 / 1780 Balance 2806.25 / 2913.75 -423.50 / -423.50 Lab / Micro Data Result Diagrams: 06/06/21 05:30 06/06/21 05:30 Labs: Laboratory Results - last 24 hr 06/05/21 06/05/21 06/05/21 14:37 14:37 14:37 WBC RBC Hgb Hct MCV MCH MCHC RDW Std Deviation RDW Coeff of Benjamin Plt Count MPV Immature Gran % (Auto) Neut % (Auto) Lymph % (Auto) [place] % (Auto) Eos % (Auto) Baso % (Auto) Absolute Neuts (auto) Absolute Lymphs (auto) Nucleated RBC % PT 26.2 H INR 2.5 APTT 49.7 H Sodium Potassium Chloride Carbon Dioxide Anion Gap BUN Creatinine Estim Creat Clear Calc Est GFR (MDRD) Af Amer Est GFR (MDRD) Non-Af BUN/Creatinine Ratio Glucose Lactic Acid 1.1 Calcium Troponin I High Sens 7.4 B-Natriuretic Peptide COVID-19 (DOV) 06/05/21 06/05/21 06/05/21 14:37 14:37 17:07 WBC RBC Hgb Hct MCV MCH MCHC RDW Std Deviation RDW Coeff of Benjamin Plt Count MPV Immature Gran % (Auto) Neut % (Auto) Lymph % (Auto) [place] % (Auto) Eos % (Auto) Baso % (Auto) Absolute Neuts (auto) Absolute Lymphs (auto) Nucleated RBC % PT INR APTT Sodium 133 L Potassium 4.2 Chloride 100 Carbon Dioxide 28.0 Anion Gap 5 BUN 9 Creatinine 0.94 Estim Creat Clear Calc 107.73 Est GFR (MDRD) Af Amer 107 Est GFR (MDRD) Non-Af 88 BUN/Creatinine Ratio 9.6 L Glucose 105 Lactic Acid Calcium 9.8 Troponin I High Sens B-Natriuretic Peptide 232.2 H COVID-19 (DOV) Not Detected 06/06/21 06/06/21 05:30 05:30 WBC 8.4 RBC 3.49 L Hgb 9.6 L Hct 31.9 L MCV 91.4 MCH 27.5 MCHC 30.1 L RDW Std Deviation 54.0 H RDW Coeff of Benjamin 16.1 H Plt Count 335 MPV 9.6 Immature Gran % (Auto) 0.500 Neut % (Auto) 75.1 H Lymph % (Auto) 11.4 L [place] % (Auto) 7.8 Eos % (Auto) 4.8 Baso % (Auto) 0.4 Absolute Neuts (auto) 6.3 Absolute Lymphs (auto) 0.96 Nucleated RBC % 0 PT INR APTT Sodium 136 Potassium 3.9 Chloride 102 Carbon Dioxide 28.0 Anion Gap 6 BUN 7 Creatinine 0.78 Estim Creat Clear Calc 129.83 Est GFR (MDRD) Af Amer 132 Est GFR (MDRD) Non-Af 109 BUN/Creatinine Ratio 9.0 L Glucose 122 H Lactic Acid Calcium 9.3 Troponin I High Sens B-Natriuretic Peptide COVID-19 (DOV) Micro: Microbiology 06/05/21 21:30 Urine, Clean Catch Legionella Antigen - Final 06/05/21 21:30 Urine, Clean Catch Streptococcus pneumoniae Antigen (M - Final Cardiology Labs/Tests 06/05/21 14:37: PT 26.2 H, INR 2.5, APTT 49.7 H 06/05/21 14:37: Lactic Acid 1.1 06/05/21 14:37: B-Natriuretic Peptide 232.2 H 06/05/21 14:37: Sodium 133 L, Potassium 4.2, Chloride 100, Carbon Dioxide 28.0, Anion Gap 5, BUN 9, Creatinine 0.94, Est GFR (MDRD) Af Amer 107, Est GFR (MDRD) Non-Af 88, BUN/Creatinine Ratio 9.6 L, Glucose 105, Calcium 9.8 06/06/21 05:30: WBC 8.4, RBC 3.49 L, Hgb 9.6 L, Hct 31.9 L, MCV 91.4, MCH 27.5, MCHC 30.1 L, Plt Count 335, MPV 9.6, Immature Gran % (Auto) 0.500, Neut % (Auto) 75.1 H, Lymph % (Auto) 11.4 L, [place] % (Auto) 7.8, Eos % (Auto) 4.8, Baso % (Auto) 0.4, Absolute Neuts (auto) 6.3, Nucleated RBC % 0 06/06/21 05:30: Sodium 136, Potassium 3.9, Chloride 102, Carbon Dioxide 28.0, Anion Gap 6, BUN 7, Creatinine 0.78, Est GFR (MDRD) Af Amer 132, Est GFR (MDRD) Non-Af 109, BUN/Creatinine Ratio 9.0 L, Glucose 122 H, Calcium 9.3 Rhythm: EKG: ECHO: Stress Test: Cardiac Cath: PCI: CT Surgery: Holter monitor: EPS: PPM: CXR: Chest CT Scan: Radiography Diagnostic Testing: Radiology Impression Chest CTA 06/05/21 15:[address]PRESS[address]: 1[address] No CT evidence of pulmonary embolism. 2. No change in moderate right pleural effusion and right lung scarring with volume loss. 3. Diffuse bilateral groundglass opacities consistent with subsegmental atelectasis, pneumonitis, pulmonary edema, or ARDS. Imaging features can be seen with Covid 19 pneumonia, though are nonspecific and can occur with a variety of infectious and noninfectious processes. Electronically Signed: Pb Troncoso MD at 17:09 EDT Tel , Service support , Physical Exam Const oriented x3 and healthy appearing Orientation / Consciousness: awake HEENT normocephalic Eyes PERRL and conjunctivae normal Neck supple, no JVD and no carotid bruits Chest inspection of chest normal Resp normal respiratory effort and clear to auscultation bilaterally Cardio Palpation: normal PMI Rate: regular rate Rhythm: abnormal rhythm irregularly irregular Heart Sounds: S1 normal and S2 normal Peripheral Pulses: pulses 2+ throughout GI normal to inspection, nondistended, normoactive bowel sounds Extremity normal to inspection and no clubbing, cyanosis or edema Psych mental status grossly normal Assessment & Plan Assessment/Plan (1) Atrial fibrillation with rapid ventricular response: PLAN: He does have a known history of atrial fibrillation with a controlled ventricular response rate. He has failed DC cardioversion previously and has been relegated to rate control and anticoagulation. I would recommend that he continue with his anticoagulation regimen at this time. He is being started on intravenous diltiazem for rate control and this should be continued and transitioned eventually to his beta-rashi. (2) Dyspnea: QUALIFIERS: Dyspnea type: dyspnea on exertion Qualified Code(s): R06.00 - Dyspnea, unspecified PLAN: He does have dyspnea which appears to be mild diastolic dysfunction, and congestive heart failure. I would recommend a regimen of diuresis as he improves from his lung condition. We will reevaluate his echocardiogram. (3) Essential (primary) hypertension: PLAN: His blood pressure appears to be stable at this time I would not recommend that we make any major changes. Thank you for allowing me to participate in the care of your patient. Please don't hesitate to call if any issues arise.
[2021-06-06] MEDS: FLUoxetine 20 MG Capsule 60 MG PO (09:27)
[2021-06-06] MEDS: Doxazosin 1 MG Tablet 2 MG PO (09:27)
--- NOTE | 2021-06-06 10:41 | PN.HOSP_ITS ---
Documented by User: Cosmo PACK 06/06/21 11:03 Subjective Subjective Patient is a 55-year-old male comfortably resting in bed, alert and orient x3. Patient reports improvement with his shortness of breath. Denies chest pain, palpitations, fever, chills, N/V/D. Objective Data Objective Data Vital Signs: Vital Signs Temp Pulse Resp BP Pulse Ox 97.8 F 92 27 H 98/71 92 06/06/21 10:00 06/06/21 10:00 06/06/21 10:00 06/06/21 10:00 06/06/21 10:00 Oxygen Flow Rate (L/min) 4 Oxygen Delivery Method Nasal Cannula Weight: 275 lb Body Mass Index (BMI) 33.5 Intake & Output: Intake and Output for Last 24 Hours 06/04/21 06/05/21 06/06/21 23:59 23:59 23:59 Intake Total 2806.25 / 3213.75 1401.50 / 1401.50 Output Total 1780 / 1780 Balance 2806.25 / 2913.75 -378.50 / -378.50 Lab / Micro Data Result Diagrams: 06/06/21 05:30 06/06/21 05:30 Labs: Laboratory Results - last 24 hr 06/05/21 06/05/21 06/05/21 14:37 14:37 14:37 WBC RBC Hgb Hct MCV MCH MCHC RDW Std Deviation RDW Coeff of Benjamin Plt Count MPV Immature Gran % (Auto) Neut % (Auto) Lymph % (Auto) [place] % (Auto) Eos % (Auto) Baso % (Auto) Absolute Neuts (auto) Absolute Lymphs (auto) Nucleated RBC % PT 26.2 H INR 2.5 APTT 49.7 H Sodium Potassium Chloride Carbon Dioxide Anion Gap BUN Creatinine Estim Creat Clear Calc Est GFR (MDRD) Af Amer Est GFR (MDRD) Non-Af BUN/Creatinine Ratio Glucose Lactic Acid 1.1 Calcium Troponin I High Sens 7.4 B-Natriuretic Peptide COVID-19 (DOV) 06/05/21 06/05/21 06/05/21 14:37 14:37 17:07 WBC RBC Hgb Hct MCV MCH MCHC RDW Std Deviation RDW Coeff of Benjamin Plt Count MPV Immature Gran % (Auto) Neut % (Auto) Lymph % (Auto) [place] % (Auto) Eos % (Auto) Baso % (Auto) Absolute Neuts (auto) Absolute Lymphs (auto) Nucleated RBC % PT INR APTT Sodium 133 L Potassium 4.2 Chloride 100 Carbon Dioxide 28.0 Anion Gap 5 BUN 9 Creatinine 0.94 Estim Creat Clear Calc 107.73 Est GFR (MDRD) Af Amer 107 Est GFR (MDRD) Non-Af 88 BUN/Creatinine Ratio 9.6 L Glucose 105 Lactic Acid Calcium 9.8 Troponin I High Sens B-Natriuretic Peptide 232.2 H COVID-19 (DOV) Not Detected 06/06/21 06/06/21 05:30 05:30 WBC 8.4 RBC 3.49 L Hgb 9.6 L Hct 31.9 L MCV 91.4 MCH 27.5 MCHC 30.1 L RDW Std Deviation 54.0 H RDW Coeff of Benjamin 16.1 H Plt Count 335 MPV 9.6 Immature Gran % (Auto) 0.500 Neut % (Auto) 75.1 H Lymph % (Auto) 11.4 L [place] % (Auto) 7.8 Eos % (Auto) 4.8 Baso % (Auto) 0.4 Absolute Neuts (auto) 6.3 Absolute Lymphs (auto) 0.96 Nucleated RBC % 0 PT INR APTT Sodium 136 Potassium 3.9 Chloride 102 Carbon Dioxide 28.0 Anion Gap 6 BUN 7 Creatinine 0.78 Estim Creat Clear Calc 129.83 Est GFR (MDRD) Af Amer 132 Est GFR (MDRD) Non-Af 109 BUN/Creatinine Ratio 9.0 L Glucose 122 H Lactic Acid Calcium 9.3 Troponin I High Sens B-Natriuretic Peptide COVID-19 (DOV) Micro: Microbiology 06/05/21 21:30 Urine, Clean Catch Legionella Antigen - Final 06/05/21 21:30 Urine, Clean Catch Streptococcus pneumoniae Antigen (M - Final Radiography Diagnostic Testing: Radiology Impression Chest CTA 06/05/21 15:34 IMPRESSION: 1. No CT evidence of pulmonary embolism. 2. No change in moderate right pleural effusion and right lung scarring with volume loss. 3. Diffuse bilateral groundglass opacities consistent with subsegmental atelectasis, pneumonitis, pulmonary edema, or ARDS. Imaging features can be seen with Covid 19 pneumonia, though are nonspecific and can occur with a variety of infectious and noninfectious processes. Electronically Signed: Pb Troncoso MD at 17:09 EDT Tel , Service support , Echocardiogram 06/05/21 18:00 Interpretation Summary Normal left ventricle. Left ventricular systolic function is normal. The estimated ejection fraction is 55 %. Contrast injection was performed. Ordering Physician: Taylor Guzman Referring Physician: Lizzeth Velasquez Performed By: Gardenia Mayers, MARISSACS, RVT Physical Exam Const alert, oriented x3 and no apparent distress HEENT head/scalp atraumatic and moist oral mucous membranes Head and Scalp: normocephalic Eyes PERRL, EOMs intact bilaterally and conjunctivae normal Neck no lymphadenopathy, supple and no JVD Resp normal respiratory effort, no retractions and no use of accessory muscles Cardio regular rate, regular rhythm, no murmurs and no JVD GI normal to inspection, nondistended, normoactive bowel sounds, soft to palpation and non-tender Extremity normal to inspection, full ROM and no clubbing, cyanosis or edema Skin no rashes or lesions noted, no wounds and skin turgor normal Neuro CN's II-XII intact bilaterally Psych affect normal Assessment & Plan Assessment/Plan (1) Pneumonia: (2) Atrial fibrillation with rapid ventricular response: (3) Anxiety and depression: (4) Essential (primary) hypertension: (5) Hyperlipidemia: QUALIFIERS: Hyperlipidemia type: unspecified Qualified Code(s): E78.5 - Hyperlipidemia, unspecified (6) Small cell lung cancer, right upper lobe: PLAN: Day 2: See subjective for patient presentation. Discharge planning: Patient remained admitted overnight however desires to return home upon discharge. 1) Dyspnea, suspect secondary to CHF vs Pneumonia vs Radiation pneumonitis . Respiratory rate still elevated at over 25 breaths/min, patient currently satting at 92% nasal cannula. Other vital signs stable and patient is afebrile. CBC is unremarkable and does not demonstrate a leukocytosis. Blood cultures ordered and pending. Legionella and strep pneumo urinary antigen is negative. ECHO 06/06; normal LV function and size, an estimated EF of 55%. Plan; continue empiric vancomycin and Zosyn until culutres return. 2) A. Fib w/ RVR Patient already anticoagulated on Xarelto. Patient not on any rate controlling medications at home, was on metoprolol but was taken off due to syncope. Plan; Continue diltiazem drip, reinitiate metoprolol at a lower dose. 3) Acute hypoxic respiratory insufficiency Hypoxic on admission. Currently stable on 4 L via nasal cannula. 4) Lung cancer, metastatic small cell Stage IIIb, follow with oncology as an oupatient. DVT Prophylaxis - continue home Xarelto. Patient seen by Cosmo Mane PA-C, under the supervision of Dr. Broussard. Documented by User: Dr. Fredi Broussard, 06/06/21 13:02 Objective Data Lab / Micro Data Attestation: I reviewed the patient's lab results. Result Diagrams: 06/06/21 05:30 06/06/21 05:30 Physical Exam Const alert Exam Limitations: no limitations HEENT head/scalp atraumatic Head and Scalp: normocephalic Neck Neck Narrative: +JVD Resp Resp Narrative: coarse breath sounds bilaterally. Cardio regular rate, regular rhythm, S1 normal heart sound and S2 normal heart sound Extremity no clubbing, cyanosis or edema Neuro Sensorium / Orientation: awake Psych affect normal Assessment & Plan Assessment/Plan (1) Hypoxia: (2) Pleural effusion, right: PLAN: 1. Pneumonia Presumed pneumococcal given the extent of it we will treat him with broad- spectrum antibiotics with vancomycin and Pipracil/tazobactam. Check urinary antigens for Streptococcus and Legionella Follow-up COVID-19 testing. Patient has been vaccinated for COVID-19 but certainly is immunocompromise and could be resistant susceptible to recurrent or new delta variance. Pulmonary toilet Patient does not have a white count nor fever at this time but was having fever apparently as outpatient. Other possibilities could be ARDS versus COVID-19 versus CHF versus radiation pneumonitis. Patient echo June 2020 where his EF was 60% at that time Unclear if infectious. Will continue abx for another 24h pending cx results. Add furosemide 2. A. fib with RVR improved Exacerbated due to the underlying pulmonary process Not on any rate controlling medication at baseline Will bolus with diltiazem and start drip Patient already anticoagulated on rivaroxaban 3. Acute hypoxic respiratory insufficiency Pulse ox 88% on room air when he presented. Currently stable on 2 L nasal cannula. Wean oxygen as tolerated 4. Lung cancer, metastatic small cell Stage IIIb Complicates overall care and recovery Follow-up with oncology 5. VTE prophylaxis: Not indicated as patient is already anticoagulated. Charges/Coding Visit Charges Inpatient E&M: 56348 [facility] L3
[2021-06-06] MEDS: 0.9% Saline Lock 10 ML Syringe IV ×4 (11:19→21:38)
[2021-06-06] MEDS: Furosemide 40 MG/4 ML Vial IV ×2 (11:19→17:04)
--- NOTE | 2021-06-06 11:22 | CASEMGMT ---
CORTNEY MORA assessment: Face to Face with patient for initial transition planning/care coordination assessment. RN MORGAN introduced self and role at [facility], pt voices understanding and consents to assessment. Pt is lying in bed in no distress on venti mask. Pt is A/Ox4 and answers all questions appropriately. Care providers, pharmacy, and demographics verified. Presentation: Pt c/o SOB since last week-pt is currently getting immunotherapy every 3 weeks Admitting dx: Pneumonia/sepsis PCP: Eva Specialists: Jonathan pulleo; Vitaliy, onc; Olive, cardio Preferred Pharmacy: [facility] Insurance: [facility] Prescription Benefit: [facility] Living Will/HPOA: Pt states does not have LW/HPOA and declines AD info. Pt aware he can complete at oncology office as well. LNOK: Emily Gomez, sister; Heather Cantu, sister Living Arrangements: Pt lives alone in duplex with flight of stairs to bathroom and states his sister, Emily, lives in other side of duplex with her kids and able to help, if needed. Pt states independent with ADL's. Transportation: Pt states drives self and states no transportation concerns. DME/HHC: Pt states has a cane and cpap thru [employer]. Pt states would like to use [employer], if qualifies for home oxygen at discharge. Pt states no hx of HHC or SNF. Pt states no concerns with going home at time of discharge. Pt is unemployed. Pt states quit smoking cigarettes on 09/01/20 after 40 year hx but has been smoking cannibis through out his cancer treatment for nausea and to help increased appetite. Pt states recently stopped cannibis and started vaping but that does not help. Pt states rarely drinks ETOH. Pt states no further concerns/needs. CM to follow for PT/OT evals, home oxygen need, and any further discharge planning/needs. Advised pt to ask for CM if any further questions/concerns/needs arise, voices understanding. Pt Goal: Home Plan: Home, pending PT/OT evals, home oxygen testing. SStaten CORTNEY MORA
--- NOTE | 2021-06-06 12:14 | NT.THERAPY_ITS ---
Medical Nutrition Therapy - History Nutrition Services has been consulted to:: Manage nutrient details of diet order Current diet/nutrition support order:: Cardiac - heart healthy diet. Regular food consistency. Regular/thin liquid consistency. No ONS at this time. - Anthropometric Measurements Height:: 6 ft 4 in Weight:: 124.738 kg Body Mass Index (BMI):: 33.5 - Relevant Labs Relevant Labs:: RBC 3.49 M/mm3 (4.6-6.2) L 06/06/21 05:30 Hgb 9.6 g/dL (13.0-16.5) L 06/06/21 05:30 Hct 31.9 % (40-54) L 06/06/21 05:30 MCHC 30.1 g/dL (32-36) L 06/06/21 05:30 RDW Std Deviation 54.0 fl (35.1-43.9) H 06/06/21 05:30 RDW Coeff of Benjamin 16.1 % (11.6-14.6) H 06/06/21 05:30 Neut % (Auto) 75.1 % (47-70) H 06/06/21 05:30 Lymph % (Auto) 11.4 % (19-41) L 06/06/21 05:30 PT 26.2 SECONDS (11.7-14.9) H 06/05/21 14:37 APTT 49.7 Seconds (24.1-36.2) H 06/05/21 14:37 Sodium 133 mmol/L (136-145) L 06/05/21 14:37 BUN/Creatinine Ratio 9.0 RATIO (10-20) L 06/06/21 05:30 Glucose 122 mg/dL (74-106) H 06/06/21 05:30 B-Natriuretic Peptide 232.2 pg/mL (0-100) H 06/05/21 14:37 - Assessment Food and Nutrient Intake: Pt states that he has been consuming approximately 1 cup of food per day x5 days because food doesn't taste good anymore. States that he was able to eat 50% of his breakfast this morning. Pt reports that he has been losing weight consistently since 2017 when he started his cancer treatment. Pt reports that he weighed 289# when he was weighed one month ago. Pt's UBW is 289# and CBW is 275# representing 14#/5% unintentional weight loss x1 month. - Nutrition Diagnosis: Clinical Problem Chronic Disease or Condition Related Malnutrition Clinical Problem - Etiology: moderate malnutrition r/t inadequate oral intake and increased metabolic needs d/t cancer Clinical Problem - Signs/Symptoms: as evidenced by pt reports of decreased appetite, pt meeting <75% of energy requirements x1 month, and unintentional weight loss of 14#/5% x1 month. Status: Active Problem - Protein Calorie Malnutrition Evidence of Malnutrition Exists: Yes Moderate Protein Calorie Malnutrition: Chronic - Nutrition Intervention Nutrition Prescription: 2,500-2,700kcal/day (RMR x 1.3 -500). Protein 120- 125g/day (1.0g/kg). Fluid 2,500-2,600mL/day (20mL/kg) - Food / Nutrient Delivery Interventions Summary of nutrition intervention:: Adjust diet order, Provide oral nutrition supplement Nutrition support ordered as / adjusted to:: Liberalize diet to regular - general diet given malnutrition. Add strawberry ensure enlive TID at meals to add more calories and protein to diet if consumed. - MNT Monitoring Active Nutrition Patient: Yes Nutrition Status: Requires Follow Up 3-5 Days
[2021-06-06 13:10] LABS: Magnesium 1.9 mg/dL (1.6-2.6)
--- NOTE | 2021-06-06 14:24 | CASEMGMT ---
[facility] palliative screening tool completed and pt qualifies for palliative referral. Dr. Broussard aware and agreeable to referral. Referral faxed to palliative. Pelon BARR CM
[2021-06-06] MEDS: Rivaroxaban 20 MG Tablet PO (17:04)
[2021-06-06] MEDS: Pravastatin 40 MG Tablet PO (17:04)
[2021-06-06 17:10] LABS: Vancomycin, Trough Level 23.9 ug/mL (5.0-15.0)
--- NOTE | 2021-06-06 18:47 | PCM.RX.CS ---
Consult Pharmacy has been consulted to manage selected antiobiotic: Vancomycin Type of Consult: Follow-up Prior Doses of Antibiotics Received/Current Regimen: VANCOMYCIN LOAD OF 2000MG AND 1500MG Q8H FOR 3 DOSES Labs: Sodium 136 mmol/L (136-145) 06/06/21 05:30 Potassium 3.9 mmol/L (3.5-5.1) 06/06/21 05:30 Chloride 102 mmol/L (98-107) 06/06/21 05:30 Carbon Dioxide 28.0 mmol/L (21.0-32.0) 06/06/21 05:30 Anion Gap 6 (5-15) 06/06/21 05:30 BUN 7 mg/dL (7-18) 06/06/21 05:30 Creatinine 0.78 mg/dL (0.70-1.30) 06/06/21 05:30 Est GFR (MDRD) Af Amer 132 mL/min (>60) 06/06/21 05:30 Est GFR (MDRD) Non-Af 109 mL/min (>60) 06/06/21 05:30 BUN/Creatinine Ratio 9.0 RATIO (10-20) L 06/06/21 05:30 Glucose 122 mg/dL (74-106) H 06/06/21 05:30 Vancomycin Trough 23.9 ug/mL (5.0-15.0) H 06/06/21 16:21 Microbiology: Microbiology 06/05/21 21:30 Urine, Clean Catch Legionella Antigen - Final 06/05/21 21:30 Urine, Clean Catch Streptococcus pneumoniae Antigen (M - Final Goal Trough: 15-20 mcg/mL Pharmacy Plan for Drug Dosing: RANDOM LEVEL OF VANCOMYCIN ORDERED FOR 06/07/21 WITH AM LABS DUE TO TROUGH LEVEL OF 23.9 06/06/21 Pharmacy Service will continue to monitor and adjust dosing as required. Follow-Up Labs: Trough Vancomycin Labs to be done on [date and time ordered]: 06/07/21 WITH AM LABS
[2021-06-06] MEDS: Ondansetron 4 MG/2 ML Vial IV (19:04)
--- NOTE | 2021-06-06 21:17 | CPS ---
pt on own cpap 18 with 15L bled in
[2021-06-06] MEDS: Amiodarone 200 MG Tablet PO (21:35)
[2021-06-07] VITALS (49 sets, daily range): BP systolic 83–118; BP diastolic 53–73; PULSE 65–99; RESP 14–33; TEMP 36.4–37.3; O2SAT 88–99
--- NOTE | 2021-06-07 04:56 | CPS ---
pts own cpap with 12 L o2 bled in
[2021-06-07 06:03] LABS: Absolute Lymphocyte Count 0.81 X10^3/uL (0.83-4.51); Basophil# 0.04 X10^3/uL; Basophil% 0.4 % (0-1); Eosinophil# 0.79 X10^3/uL; Eosinophils% 8.5 % (0-5); Hematocrit 32.4 % (40-54); Hemoglobin 9.8 g/dL (13.0-16.5); Lymphocyte # 0.81 X10^3/ul (0.83-4.51); Lymphocyte % 8.7 % (19-41); Mean Corp Hgb Conc 30.2 g/dL (32-36); Mean Corpuscular Hgb 27.5 pg (27.0-32.0); Mean Platelet Vol. 9.7 fl (6.2-12.0); Monocyte# 0.71 X10^3/uL; Monocyte% 7.6 % (0-10); NRBC Flagged by Analyzer 0 % (0-5); Neutrophil # 6.97 X10^3/uL (2.7-7.7); Neutrophil % 74.6 % (47-70); Platelet Count 338 K/mm3 (150-450); RBC Distribution Width CV 16.1 % (11.6-14.6); RBC Distribution Width SD 53.2 fl (35.1-43.9); Red Blood Count 3.56 M/mm3 (4.6-6.2); White Blood Count 9.3 K/mm3 (4.4-11.0)
[2021-06-07 06:44] LABS: Anion Gap 6 (5-15); BUN 11 mg/dL (7-18); BUN/Creat Ratio 9.5 RATIO (10-20); Calcium,Total 9.8 mg/dL (8.5-10.1); Chloride 99 mmol/L (98-107); Creatinine, Serum 1.16 mg/dL (0.70-1.30); EST Glomerular Filtration Rate 69 mL/min (>60); Est Glom Filt Rate - Afr Amer 84 mL/min (>60); Glucose 120 mg/dL (74-106); Potassium 3.6 mmol/L (3.5-5.1); Sodium Level 135 mmol/L (136-145)
[2021-06-07 06:46] LABS: Vancomycin, Random Level 19.9 ug/mL (0.0-15.0)
[2021-06-07] MEDS: Ipratropium/Albuterol Sulfate 3 ML AMPUL.NEB INHALATION ×4 (07:43→19:22)
[2021-06-07] MEDS: Budesonide Respules 0.5 MG/2 ML AMPUL.NEB. INHALATION (07:43)
[2021-06-07] MEDS: Ondansetron 4 MG/2 ML Vial IV (07:48)
[2021-06-07] MEDS: 0.9% Saline Lock 10 ML Syringe IV ×6 (07:49→23:51)
--- NOTE | 2021-06-07 07:50 | PCM.RX.CS ---
Consult Pharmacy has been consulted to manage selected antiobiotic: Vancomycin Type of Consult: Follow-up Suspected Infection: Pneumonia Prior Doses of Antibiotics Received/Current Regimen: the patient had been on 1500mg q8h until it was held yesterday evening Labs: Sodium 135 mmol/L (136-145) L 06/07/21 05:50 Potassium 3.6 mmol/L (3.5-5.1) 06/07/21 05:50 Chloride 99 mmol/L (98-107) 06/07/21 05:50 Carbon Dioxide 30.0 mmol/L (21.0-32.0) 06/07/21 05:50 Anion Gap 6 (5-15) 06/07/21 05:50 BUN 11 mg/dL (7-18) 06/07/21 05:50 Creatinine 1.16 mg/dL (0.70-1.30) 06/07/21 05:50 Est GFR (MDRD) Af Amer 84 mL/min (>60) 06/07/21 05:50 Est GFR (MDRD) Non-Af 69 mL/min (>60) 06/07/21 05:50 BUN/Creatinine Ratio 9.5 RATIO (10-20) L 06/07/21 05:50 Glucose 120 mg/dL (74-106) H 06/07/21 05:50 Vancomycin Trough 23.9 ug/mL (5.0-15.0) H 06/06/21 16:21 Random Vancomycin 19.9 ug/mL (0.0-15.0) H 06/07/21 05:50 Microbiology: Microbiology 06/05/21 21:30 Urine, Clean Catch Legionella Antigen - Final 06/05/21 21:30 Urine, Clean Catch Streptococcus pneumoniae Antigen (M - Final Weight used for dosin.7 kg Estimated Creatinine Clearance: 87ml/min Goal Trough: 15-20 mcg/mL Pharmacy Plan for Drug Dosing: The patient's dose of 1500mg q8h had been held yesterday evening after a high trough of 23.9. The vanc random level taken this morning at 05:50 was 19.9. Will resume dosing since it is back below 20. Noting also that the patient's SCr has gone up to 1.16, will resume at a reduced dose of 1500mg q12h. Will repeat a trough before the 4th dose of the new regimen. Pharmacy Service will continue to monitor and adjust dosing as required. Follow-Up Labs: Trough Vancomycin Labs to be done on [date and time ordered]: 06/08/21 20:30
[2021-06-07] MEDS: Doxazosin 1 MG Tablet 2 MG PO (09:41)
[2021-06-07] MEDS: Amiodarone 200 MG Tablet PO ×2 (09:41→21:30)
[2021-06-07] MEDS: Metoprolol Tartrate 50 MG Tablet PO (09:41)
[2021-06-07] MEDS: Furosemide 40 MG/4 ML Vial IV (09:41)
[2021-06-07] MEDS: FLUoxetine 20 MG Capsule 60 MG PO (09:41)
[2021-06-07] MEDS: Acetaminophen 325 MG Tablet 650 MG PO (11:19)
--- NOTE | 2021-06-07 11:20 | PCM.PN.HOSP ---
Documented by User: Cosmo PACK 06/07/21 11:30 Subjective Subjective Patient is a 55-year-old male comfortably resting in bed, alert and orient x3. Patient reports improvement of his shortness of breath from yesterday. Chest pain, palpitations, fever, chills, N/V/D. Objective Data Objective Data Vital Signs: Vital Signs Temp Pulse Resp BP Pulse Ox 97.6 F L 92 22 H 109/65 91 06/07/21 10:00 06/07/21 11:00 06/07/21 11:00 06/07/21 11:00 06/07/21 11:00 Oxygen Flow Rate (L/min) 12 Oxygen Delivery Method Venturi Mask Weight: 275 lb 0.003 oz Body Mass Index (BMI) 33.5 Intake & Output: Intake and Output for Last 24 Hours 06/05/21 06/06/21 06/07/21 23:59 23:59 23:59 Intake Total 2806.25 / 3213.75 3659.25 / 3914.25 1269.00 / 1269.00 Output Total 5230 / 5730 500 / 500 Balance 2806.25 / 2913.75 -1570.75 / -1815.75 769.00 / 769.00 Lab / Micro Data Result Diagrams: 06/07/21 05:50 06/07/21 05:50 Labs: Laboratory Results - last 24 hr 06/06/21 06/06/21 06/07/21 05:36 16:21 05:50 WBC 9.3 RBC 3.56 L Hgb 9.8 L Hct 32.4 L MCV 91.0 MCH 27.5 MCHC 30.2 L RDW Std Deviation 53.2 H RDW Coeff of Benjamin 16.1 H Plt Count 338 MPV 9.7 Immature Gran % (Auto) 0.200 Neut % (Auto) 74.6 H Lymph % (Auto) 8.7 L Howard % (Auto) 7.6 Eos % (Auto) 8.5 H Baso % (Auto) 0.4 Absolute Neuts (auto) 7.0 Absolute Lymphs (auto) 0.81 L Nucleated RBC % 0 Sodium Potassium Chloride Carbon Dioxide Anion Gap BUN Creatinine Estim Creat Clear Calc Est GFR (MDRD) Af Amer Est GFR (MDRD) Non-Af BUN/Creatinine Ratio Glucose Calcium Magnesium 1.9 Vancomycin Trough 23.9 H Random Vancomycin 06/07/21 06/07/21 05:50 05:50 WBC RBC Hgb Hct MCV MCH MCHC RDW Std Deviation RDW Coeff of Benjamin Plt Count MPV Immature Gran % (Auto) Neut % (Auto) Lymph % (Auto) Howard % (Auto) Eos % (Auto) Baso % (Auto) Absolute Neuts (auto) Absolute Lymphs (auto) Nucleated RBC % Sodium 135 L Potassium 3.6 Chloride 99 Carbon Dioxide 30.0 Anion Gap 6 BUN 11 Creatinine 1.16 Estim Creat Clear Calc 87.30 Est GFR (MDRD) Af Amer 84 Est GFR (MDRD) Non-Af 69 BUN/Creatinine Ratio 9.5 L Glucose 120 H Calcium 9.8 Magnesium Vancomycin Trough Random Vancomycin 19.9 H Micro: Microbiology 06/05/21 21:30 Urine, Clean Catch Legionella Antigen - Final 06/05/21 21:30 Urine, Clean Catch Streptococcus pneumoniae Antigen (M - Final Physical Exam Const alert, oriented x3 and no apparent distress HEENT head/scalp atraumatic and moist oral mucous membranes Head and Scalp: normocephalic Eyes EOMs intact bilaterally and conjunctivae normal Neck no lymphadenopathy, supple and no JVD Resp normal respiratory effort, no retractions, no use of accessory muscles and clear to auscultation bilaterally Cardio regular rate, regular rhythm, no murmurs and no JVD GI normal to inspection, nondistended, normoactive bowel sounds, soft to palpation, non-tender and non-distended Extremity normal to inspection, full ROM and no clubbing, cyanosis or edema Skin no rashes or lesions noted, no wounds and skin turgor normal Neuro CN's II-XII intact bilaterally Psych affect normal Assessment & Plan Assessment/Plan (1) Pneumonia: QUALIFIERS: Pneumonia type: due to unspecified organism Laterality: bilateral Lung location: unspecified part of lung Qualified Code(s): J18.9 - Pneumonia, unspecified organism (2) Small cell lung cancer, right upper lobe: (3) Atrial fibrillation with rapid ventricular response: (4) Hyperlipidemia: QUALIFIERS: Hyperlipidemia type: unspecified Qualified Code(s): E78.5 - Hyperlipidemia, unspecified (5) Essential (primary) hypertension: PLAN: Day 3: See subjective for patient presentation. Discharge planning: Patient remained admitted overnight however desires to return home upon discharge. 1) Dyspnea, suspect secondary to CHF vs Pneumonia vs Radiation pneumonitis . Respiratory rate currenty at 22 breaths per minute, patient currently satting at 91% via venturi mask. Other vital signs stable and patient is afebrile. CBC is unremarkable and does not demonstrate a leukocytosis. Blood cultures ordered and pending. Legionella and strep pneumo urinary antigen is negative. ECHO 06/06; normal LV function and size, an estimated EF of 55%. Plan; continue empiric vancomycin and Zosyn until culutres return, continue furosemide 40 mg IV twice daily. 2) A. Fib w/ RVR Patient already anticoagulated on Xarelto. Patient has been intiiated on Metoprolol 50 milligrams p.o. twice daily and amiodarone 200 mg p.o. twice daily for rate and rhythm control per cardiology. 3) Acute hypoxic respiratory insufficiency Hypoxic on admission. Plan; as above. 4) Lung cancer, metastatic small cell Stage IIIb, follow with oncology as an oupatient. DVT Prophylaxis - continue home Xarelto. Patient seen by Cosmo Mane PA-C, under the supervision of Dr. Broussard. Documented by User: Dr. Fredi Broussard, DO 06/07/21 11:44 Subjective Subjective Feels better overall. Placed on VM. Denies LE edema. Requesting pulmonary consult. Last had XRT ~1 year ago which was right sided. Objective Data Lab / Micro Data Attestation: I reviewed the patient's lab results. Result Diagrams: 06/07/21 05:50 06/07/21 05:50 Radiography Diagnostic Testing: Personally reviewed CT images. Right side loculated pleural effusion (present on 03/20), diffuse GGO, not present 03/20 Physical Exam Const alert Constitutional Narrative: on VM. no respiratory distress. No conversational dyspnea. HEENT moist oral mucous membranes Head and Scalp: normocephalic Eyes PERRL Neck no lymphadenopathy Resp normal respiratory effort and no retractions Resp Narrative: coarse breath sounds bilaterally. Cardio regular rate, regular rhythm, S1 normal heart sound and S2 normal heart sound GI normal to inspection, nondistended, normoactive bowel sounds, non-tender and non-distended Extremity normal to inspection Extremity Narrative: no edema Skin Skin Narrative: chronic stasis dermatitis Neuro Sensorium / Orientation: awake Assessment & Plan Assessment/Plan (1) Pneumonia: QUALIFIERS: Pneumonia type: due to unspecified organism Laterality: bilateral Lung location: unspecified part of lung Qualified Code(s): J18.9 - Pneumonia, unspecified organism (2) Respiratory failure: QUALIFIERS: Chronicity: acute Respiratory failure complication: hypoxia Qualified Code(s): J96.01 - Acute respiratory failure with hypoxia PLAN: Patient seen and examined independently. Data reviewed. I agree with the above note by the physician civil engineering assistant. 1. Pneumonia Presumed pneumococcal given the extent of it we will treat him with broad-spectrum antibiotics with vancomycin and Pipracil/tazobactam. urinary antigens for Streptococcus and Legionella negative Follow-up COVID-19 testing. Patient has been vaccinated for COVID-19 but certainly is immunocompromise and could be resistant susceptible to recurrent or new delta variance. Pulmonary toilet Patient does not have a white count nor fever at this time but was having fever apparently as outpatient. Other possibilities could be ARDS versus COVID-19 versus CHF versus radiation pneumonitis. Patient echo June 2020 where his EF was 60% at that time Unclear if infectious. Will continue abx for another 24h pending cx results. Add furosemide 2. A. fib with RVR improved Exacerbated due to the underlying pulmonary process Not on any rate controlling medication at baseline dilt gtt and amiodarone Patient already anticoagulated on rivaroxaban 3. Acute hypoxic respiratory insufficiency Ongoing 2/2 lung cancer, pleural effusion, GGO Pulse ox 88% on room air when he presented. Currently on VM. Wean oxygen as tolerated Pulm consult 4. Lung cancer, metastatic small cell Stage IIIb Complicates overall care and recovery Follow-up with oncology 5. VTE prophylaxis: Not indicated as patient is already anticoagulated. Charges/Coding Visit Charges Inpatient E&M: 50270 Subs Hosp L3
[2021-06-07] MEDS: MethylPREDNISolone 125 MG/2 ML Vial 250 MG IV (12:02)
--- NOTE | 2021-06-07 12:17 | CON.PCM.CC_ITS ---
Assessment & Plan Assessment/Plan (1) Respiratory failure: QUALIFIERS: Chronicity: acute Respiratory failure complication: hypoxia Qualified Code(s): J96.01 - Acute respiratory failure with hypoxia (2) Small cell lung cancer, right upper lobe: (3) Pancytopenia due to chemotherapy: (4) Atrial fibrillation with rapid ventricular response: (5) Pleural effusion, right: (6) ALEX (obstructive sleep apnea): PLAN: RECOMMENDATIONS: 1. Initiate systemic steroids with load 2. Transition to Airvo and BiPAP therapy to support oxygenation 3. Discontinue budesonide. Continue empiric antibiotics 4. Rate control and diuresis per cardiology 5. Hold Xarelto for possible thoracentesis on Thursday 6. Obtain sputum culture. Possible bronc if intubated IMPRESSIONS: 1. Acute hypoxic respiratory failure Unclear etiology at this time. Congestive heart failure secondary to A. fib with RVR would be a consideration. However, findings on CT scan are more consistent with pneumonitis on my review. This could be secondary to patient's immunotherapy. Will initiate IV steroids immediately. Infection would also be a consideration. Patient is already on broad-spectrum antibiotics. If patient deteriorates to the point of intubation, bronchoscopy would be a consideration for BAL to exclude atypical infection such as fungus. Patient is not on chronic steroid therapy to suggest PCP as an etiology. Patient has not improved with diuretic therapy and rate control suggesting CHF is less likely. Cardiology is following. Patient is willing to be intubated if necessary. Will transition to Airvo and BiPAP to help with oxygenation and respiratory muscle fatigue. Cannot exclude the need to move patient to the intensive care unit in the next 24 to 48 hours. Low clinical suspicion for PE given radiographic pattern and baseline anticoagulation. Patient's pleural effusion is significant on the right, but does not appear to be grossly changed from February when patient was relatively asymptomatic. 2. A. fib with RVR/chronic diastolic CHF Patient with significant A. fib with RVR on presentation. However, ejection fraction was preserved when tested recently. Cardiology is currently following. Defer to them on rate control. Anticoagulation will be held given patient's high likelihood of needing procedures during this hospitalization. Patient does not appear to be responding to diuretics and rate control from a respiratory standpoint. 3. 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 Radiographic pattern is concerning for grade 3/4 pneumonitis on my review. This may account for fever and relates temporally to the onset of symptoms. There is been a significant change compared to February surveillance by oncology. Patient does not have significant lobe collapse to suggest an etiology of progression of cancer leading to hypoxic respiratory failure. 4. Cannabis use/obesity/hypertension/hyperlipidemia/anxiety/depression Complicates care, management, recovery and prognosis. Okay to continue with baseline medications from my perspective. Anticoagulation will be held for possible needs for intervention. HPI Consult Data Date of Consult: 06/07/21 HPI Narrative HPI Narrative: RONALDO ADAM is a 55 M, with a past medical history listed below and well-known to me from the outpatient office, who presented to [facility] on 06/05/2021 secondary to progressive dyspnea over the prev ious week. Patient states that he had been having increased palpitations over the course of time. Patient is currently on suppressive therapy for recurrent small cell lung cancer and was noted to be 88% in his oncologist office. Patient had also reported increased nausea and chest pressure. Patient is on Xarelto at baseline and states he had not missed any doses. Patient was suspecting that he was dehydrated. Patient states he did go camping prior to presentation and also had a chemotherapy approximately a week ago. Patient states he did have a temperature of 101.3 ?F last week. Patient has had a cough, but states that her production is not different from baseline. In the ER, patient was afebrile, but tachycardic at 130 bpm and hypoxic at 88% on room air. Patient's blood pressure was lower at 97/64 and saturations improved on 2 L nasal cannula. Patient's BNP was slightly elevated at 232, but troponin was within normal limits. Patient received 2 L of IV fluids with the significant improvement in blood pressure and heart rate. Chest x-ray showed left-sided infiltrates, so CTA was obtained. Patient was given vancomycin, Zosyn and DuoNeb and was admitted to the hospital. Since being in the hospital, patient has progressively declined. Patient is currently requiring a 50% Ventimask to maintain saturations in the upper 80s and low 90s. Patient also had to have 15 L of oxygen bled into his baseline CPAP 18 cm of water to maintain saturations overnight while sleeping patient has been reporting palpitations and states he feels like the water is coming out of my right chest. Patient did state that he has had some diarrhea. Patient is decreased his cannabis by 50% secondary to feeling more ill. Patient has had more nausea associated with decrease cannabis use. Patient does state that he is willing to be intubated if necessary. Patient feels that a thoracentesis may be helpful. Review of systems otherwise negative from a constitutional, HEENT, respiratory, cardiovascular, GI, genitourinary, musculoskeletal, skin, neurologic, psychiatric and hematologic system unless stated above. [facility] Medical History Abnormal PET scan of colon Adrenal nodule Asthma, moderate persistent Atrial fibrillation BiPAP (biphasic positive airway pressure) dependence Bipolar disorder Chemotherapy induced neutropenia Chest pain Consolidation of right lower lobe of lung Diabetes mellitus Dyspnea Encounter for education Essential (primary) hypertension Fatigue Hyperlipidemia Irregular heart beat Longstanding persistent atrial fibrillation Lung cancer Marijuana abuse Migraines Nausea Nicotine dependence Nocturia Obesity ALEX (obstructive sleep apnea) Persistent atrial fibrillation Pleural effusion, right Radiation dermatitis Rectal pain Regional lymph node metastasis present Sleep apnea Smoker 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 classification Home Medications fluticasone propionate 2 spray NASAL DAILY PRN PRN 04/11/16 [History Last Taken Unknown] rivaroxaban 20 mg tablet 20 mg PO QDAY #30 tablet 04/17/20 [Rx Last Taken 06/05/21] tiotropium bromide 2.5 mcg/actuation mist for inhalation 2 puff INHALATION DAILY #4 gm 07/25/20 [Rx Last Taken 06/05/21] ondansetron HCl 8 mg PO Q8H PRN PRN 30 Days #30 tablet 08/23/20 [Rx Last Taken Unknown] prochlorperazine maleate 10 mg PO Q6H PRN PRN 10 Days #30 tablet 08/23/20 [Rx Last Taken Unknown] doxazosin 2 mg tablet 2 mg PO DAILY #90 tablet 12/27/20 [Rx Last Taken 06/05/21] albuterol sulfate 90 mcg/actuation breath activated powder inhaler 2 inh INHALATION Q4H PRN PRN #1 each 01/21/21 [Rx Last Taken 06/05/21] fluoxetine 20 mg capsule 60 mg PO DAILY #270 cap 02/05/21 [Rx Last Taken 06/05/21] Disability Placard #1 ea 03/11/21 [Rx Last Taken Unknown] polyethylene glycol 3350 17 gram oral powder packet 17 g PO DAILY PRN 30 Days #30 packet 05/02/21 [Rx Last Taken Unknown] pravastatin 40 mg tablet 40 mg PO DINNER #90 tablet 05/02/21 [Rx Last Taken 06/05/21] budesonide-formoterol [Symbicort] 2 puff INHALATION BID 06/05/21 [History Last Taken 06/05/21] cholecalciferol (vitamin D3) 1,250 mcg PO SA 06/05/21 [History Last Taken 06/01/21] Allergy/AdvReac Type Severity Reaction Status Date / Time pioglitazone HCl [From Actos] AdvReac Severe Other Verified 06/05/21 13:20 Family History Father CAD (coronary artery disease) Hx CABG Family history of hypertension Family history of hyperlipidemia Hypertension CVA (cerebral vascular accident) Mother , Age 55 Sudden cardiac Family history of hypertension Sister Family history of hypertension Family history of hyperlipidemia Diabetes Grandfather CVA (cerebral vascular accident) Grandmother CVA (cerebral vascular accident) Uncle Lung cancer Surgical History History of cardioversion (03/2016) History of stomach ulcers History of thoracentesis (01/2020) History of tonsillectomy Pilonidal cyst (~1986) PORT PLACEMENT Social History Smoking Status: Unknown if ever smoked alcohol intake: never details: occasional substance use type: marijuana caffeine: Yes Type: carbonated beverages and coffee what type of physical activity do you participate in: none romero/holiness: [employer] seatbelt use: always do you feel safe at home: Yes ROS ROS Narrative See HPI Physical Exam Const alert and oriented x3 General Appearance: cooperative, well developed and in distress Positive for moderate Nutritional Appearance: obese HEENT normocephalic, head/scalp atraumatic and moist oral mucous membranes Eyes PERRL and EOMs intact bilaterally Neck full ROM and no lymphadenopathy Chest inspection of chest normal Resp normal respiratory effort Effort and Inspection: able to speak in complete sentences and symmetric chest movement; Negative for uses accessory muscles, tracheal deviation or tripod positioning Auscultation: clear to auscultation bilaterally, rales right and wheezes expiratory wheezes; Negative for rhonchi Percussion: Negative for dullness Cardio regular rate, S1 normal heart sound, S2 normal heart sound, no murmurs, no rub and no gallops Rhythm: abnormal rhythm irregularly irregular GI normal to inspection, nondistended, normoactive bowel sounds no CVA tenderness Extremity no clubbing, cyanosis or edema Skin no rashes or lesions noted Neuro oriented x3, CN's II-XII intact bilaterally, moves all extremities and no focal motor deficits Psych cooperative and affect normal Lab / Micro Data Result Diagrams: 06/07/21 05:50 06/07/21 05:50 Labs: Laboratory Results - last 24 hr 06/06/21 06/06/21 06/07/21 05:36 16:21 05:50 WBC 9.3 RBC 3.56 L Hgb 9.8 L Hct 32.4 L MCV 91.0 MCH 27.5 MCHC 30.2 L RDW Std Deviation 53.2 H RDW Coeff of Benjamin 16.1 H Plt Count 338 MPV 9.7 Immature Gran % (Auto) 0.200 Neut % (Auto) 74.6 H Lymph % (Auto) 8.7 L [place] % (Auto) 7.6 Eos % (Auto) 8.5 H Baso % (Auto) 0.4 Absolute Neuts (auto) 7.0 Absolute Lymphs (auto) 0.81 L Nucleated RBC % 0 Sodium Potassium Chloride Carbon Dioxide Anion Gap BUN Creatinine Estim Creat Clear Calc Est GFR (MDRD) Af Amer Est GFR (MDRD) Non-Af BUN/Creatinine Ratio Glucose Calcium Magnesium 1.9 Vancomycin Trough 23.9 H Random Vancomycin 06/07/21 06/07/21 05:50 05:50 WBC RBC Hgb Hct MCV MCH MCHC RDW Std Deviation RDW Coeff of Benjamin Plt Count MPV Immature Gran % (Auto) Neut % (Auto) Lymph % (Auto) [place] % (Auto) Eos % (Auto) Baso % (Auto) Absolute Neuts (auto) Absolute Lymphs (auto) Nucleated RBC % Sodium 135 L Potassium 3.6 Chloride 99 Carbon Dioxide 30.0 Anion Gap 6 BUN 11 Creatinine 1.16 Estim Creat Clear Calc 87.30 Est GFR (MDRD) Af Amer 84 Est GFR (MDRD) Non-Af 69 BUN/Creatinine Ratio 9.5 L Glucose 120 H Calcium 9.8 Magnesium Vancomycin Trough Random Vancomycin 19.9 H Radiology Impression Chest X-Ray 06/05/21 15:23 IMPRESSION: New pulmonary infiltrates in the left hemithorax. Stable changes in the right hemithorax. Electronically Signed: Melquiades Stallings MD at 15:35 EDT , Service support , Charges/Coding Visit Charges Inpatient E&M: 28722 Init Hosp L3
--- NOTE | 2021-06-07 13:28 | CON.PCM.PA_ITS ---
Assessment & Plan Assessment/Plan (1) Dyspnea: QUALIFIERS: Dyspnea type: dyspnea on exertion Qualified Code(s): R06.00 - Dyspnea, unspecified (2) Fatigue: QUALIFIERS: Fatigue type: due to neoplasm Qualified Code(s): R53.0 - Neoplastic (malignant) related fatigue (3) Chest pain: QUALIFIERS: Chest pain type: unspecified Qualified Code(s): R07.9 - Chest pain, unspecified (4) Atrial fibrillation with rapid ventricular response: (5) Pneumonia: QUALIFIERS: Pneumonia type: due to unspecified organism Laterality: bilateral Lung location: unspecified part of lung Qualified Code(s): J18.9 - Pneumonia, unspecified organism (6) Small cell lung cancer, right upper lobe: (7) Thrombocytopenia: (8) Constipation: QUALIFIERS: Constipation type: chronic idiopathic constipation Qualified Code(s): K59.04 - Chronic idiopathic constipation (9) Anxiety and depression: (10) CINV (chemotherapy-induced nausea and vomiting): (11) Longstanding persistent atrial fibrillation: (12) Essential (primary) hypertension: (13) Hyperlipidemia: QUALIFIERS: Hyperlipidemia type: unspecified Qualified Code(s): E78.5 - Hyperlipidemia, unspecified (14) Regional lymph node metastasis present: (15) ALEX (obstructive sleep apnea): (16) 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 classification: (17) Acute respiratory failure with hypoxia: PLAN: 55-year-old male with small cell lung cancer, recent recurrence, on immunotherapy, seen today for palliative care consultation secondary to shortness of breath and cancer related symptom management. 1. Shortness of breath and fatigue: Has been progressive since hospitalized, cancer center director/pulmonary consulted. He does follow with Dr. Castillo as an outpatient. Now requiring Airvo and prn BiPAP. Treat underlying etiology. defer management 2. Small cell lung CA: possible progression. f/u with oncology. If symptoms arise r/t his cancer, we would be happy to assist with management if the patient desires to enroll in palliative. 3. Constipation: Chronic, controlled, he has MiraLAX as needed. 4. Anxiety and depression: Appears he is somewhat anxious, does have a history of bipolar as well. He is having a hard time staying on track with conversation. He takes fluoxetine 60 mg daily. He also states that he self medicates with daily cannabis since he was 15 years old. No recommendations at this time, states he is happy with current POC 5. ALEX/stage II COPD/hyperlipidemia/A. fib/thrombocytopenia/chemotherapy induced nausea and vomiting/pneumonia/chest pain: Complicates overall care, management, recovery, and prognosis. Follow-up with PCP. See below. Thank you for the opportunity to participate in this patient's care, please do not hesitate to contact [facility] with any further questions or concerns. Palliative direct line is [phone]. Patient has declined palliative services at this time. Offered a liaison to come out and explained in further detail, however he is quite anxious over the subject and would like to continue his current plan of care. Greater than 50% of F2F visit dedicated to education and counseling of palliative care services, medications, comorbid conditions and potential assistance with management, and plan of care moving forward. Reviewed medications. Start time: 1328 End time: 1430 HPI Consult Data Date of Consult: 06/07/21 HPI Narrative HPI Narrative: RONALDO ADAM, is a 55 M, H as below, who presented to [facility] 06/05/2021 from his oncologist office at the direction of Lo Bird NP secondary to fever, persistent nausea and vomiting, dyspnea, and progressive chest pain. Patient has history of recurrent small cell lung cancer and is currently on immunotherapy. He was admitted to the hospital for further evaluation management. Seen today for palliative care consultation secondary to his cancer and associated symptoms. Patient was hypoxic at 88% at his oncologist office. He had been camping over the weekend and has not been feeling well ever since. Complained of palpitations, has a history of A. fib. He was found to be in A. fib with RVR and was initiated on Cardizem drip, cardiology consulted. Already anticoagulated with Xarelto. Echocardiogram showed normal LV systolic function, estimated EF of 55%. Diuresis was recommended for suspected CHF with mild diastolic dysfunction. Chest x-ray showed left-sided infiltrate so CTA was performed. There was no evidence of PE, no change in moderate right pleural effusion and right lung scarring with volume loss, there was diffuse bilateral groundglass opacities consistent with subsegmental atelectasis, pneumonitis, pulmonary edema, or ARDS. Hypoxemia worsening and patient has been progressively declining. Chemistry Professor was consulted. He was on a 50% Ventimask and was placed on AirVo. He seems to be improving on that. He ate some of his lunch and tolerated it well. No N/V. Had some diarrhea but recently took some MiraLAX, which does help with his chronic constipation. He remains on broad-spectrum antibiotics. He has received some IV fluids and is feeling better. He was given a loading dose of systemic steroids. Pulmonary once Xarelto held for possible thoracentesis on Thursday. Also reports cannot exclude needing to transfer patient to the ICU in the next 24 to 48 hours, we will see how he does. Able to speak in complete sentences. Denies any current shortness of breath or chest discomfort. Lives at home by himself, no children. States he lives an alternative lifestyle. He is very candid about his life. He lives with his sister and helps care for her children. Patient has not been smoking as much cannabis secondary to feeling ill, but has smoked ever since he was 15 years old. He quit smoking cigarettes in August 2020. He is wondering if palliative care would be too many hands in the pot. I did explain palliative services to the patient and that we help with symptom management associated with his cancer, however his attention span was quite short. He states his cancer is fine and he is improving, does not feel he will ever get worse. I left him with a packet of information on services and contact information if he would be interested in the future. Encouraged him to reach out with any questions. Also informed him we could send out a liaison to give him more in-depth information if he would desire in the future. [facility] Medical History Abnormal PET scan of colon Adrenal nodule Asthma, moderate persistent Atrial fibrillation BiPAP (biphasic positive airway pressure) dependence Bipolar disorder Chemotherapy induced neutropenia Chest pain Consolidation of right lower lobe of lung Diabetes mellitus Dyspnea Encounter for education Essential (primary) hypertension Fatigue Hyperlipidemia Irregular heart beat Longstanding persistent atrial fibrillation Lung cancer Marijuana abuse Migraines Nausea Nicotine dependence Nocturia Obesity ALEX (obstructive sleep apnea) Persistent atrial fibrillation Pleural effusion, right Radiation dermatitis Rectal pain Regional lymph node metastasis present Sleep apnea Smoker 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 classification Home Medications fluticasone propionate 2 spray NASAL DAILY PRN PRN 04/11/16 [History Last Taken Unknown] rivaroxaban 20 mg tablet 20 mg PO QDAY #30 tablet 04/17/20 [Rx Last Taken 06/05/21] tiotropium bromide 2.5 mcg/actuation mist for inhalation 2 puff INHALATION DAILY #4 gm 07/25/20 [Rx Last Taken 06/05/21] ondansetron HCl 8 mg PO Q8H PRN PRN 30 Days #30 tablet 08/23/20 [Rx Last Taken Unknown] prochlorperazine maleate 10 mg PO Q6H PRN PRN 10 Days #30 tablet 08/23/20 [Rx Last Taken Unknown] doxazosin 2 mg tablet 2 mg PO DAILY #90 tablet 12/27/20 [Rx Last Taken 06/05/21] albuterol sulfate 90 mcg/actuation breath activated powder inhaler 2 inh INHALATION Q4H PRN PRN #1 each 01/21/21 [Rx Last Taken 06/05/21] fluoxetine 20 mg capsule 60 mg PO DAILY #270 cap 02/05/21 [Rx Last Taken 06/05/21] Disability Placard #1 ea 03/11/21 [Rx Last Taken Unknown] polyethylene glycol 3350 17 gram oral powder packet 17 g PO DAILY PRN 30 Days #30 packet 05/02/21 [Rx Last Taken Unknown] pravastatin 40 mg tablet 40 mg PO DINNER #90 tablet 05/02/21 [Rx Last Taken 06/05/21] budesonide-formoterol [Symbicort] 2 puff INHALATION BID 06/05/21 [History Last Taken 06/05/21] cholecalciferol (vitamin D3) 1,250 mcg PO SA 06/05/21 [History Last Taken 06/01/21] Allergy/AdvReac Type Severity Reaction Status Date / Time pioglitazone HCl [From Actos] AdvReac Severe Other Verified 06/05/21 13:20 Family History Father CAD (coronary artery disease) Hx CABG Family history of hypertension Family history of hyperlipidemia Hypertension CVA (cerebral vascular accident) Mother , Age 55 Sudden cardiac Family history of hypertension Sister Family history of hypertension Family history of hyperlipidemia Diabetes Grandfather CVA (cerebral vascular accident) Grandmother CVA (cerebral vascular accident) Uncle Lung cancer Surgical History History of cardioversion (03/2016) History of stomach ulcers History of thoracentesis (01/2020) History of tonsillectomy Pilonidal cyst (~1986) PORT PLACEMENT Social History Smoking Status: Unknown if ever smoked alcohol intake: never details: occasional substance use type: marijuana caffeine: Yes Type: carbonated beverages and coffee what type of physical activity do you participate in: none romero/jehovah's witness: [employer] seatbelt use: always do you feel safe at home: Yes ROS ROS Narrative Review of systems otherwise negative from a constitutional, HEENT, respiratory, cardiovascular, GI, genitourinary, musculoskeletal, skin, neurologic, psychiatric and hematologic system unless stated above. Physical Exam Const alert, oriented x3 and no apparent distress General Appearance: cooperative and comfortable HEENT normocephalic and head/scalp atraumatic Neck supple General: trachea midline Resp normal respiratory effort Effort and Inspection: able to speak in complete sentences and symmetric chest movement Auscultation: rales right, wheezes and diminished lung sounds; Negative for rhonchi Cardio S1 normal heart sound and S2 normal heart sound Rate: regular rate Rhythm: abnormal rhythm GI normal to inspection, nondistended, normoactive bowel sounds Extremity no clubbing, cyanosis or edema Skin no rashes or lesions noted Neuro CN's II-XII intact bilaterally and no focal motor deficits Psych Appearance: grossly normal Activity / Motor Behavior: appropriate eye contact Speech: normal speech Attention / Concentration: other attention fair. difficult to carry on a conversation. jumping from subject to subject. Memory / Cognition: memory grossly intact Insight: fair
--- NOTE | 2021-06-07 14:49 | PN.CARD_ITS ---
Subjective Subjective Patient seen and evaluated. Appears to be doing much better this morning. Heart rate is better. Objective Data Vital Signs: Vital Signs Temp Pulse Resp BP Pulse Ox 98.5 F 65 20 H 95/72 94 06/07/21 14:00 06/07/21 14:00 06/07/21 14:00 06/07/21 14:00 06/07/21 14:00 Oxygen Flow Rate (L/min) 12 Oxygen Delivery Method Airvo Weight: 275 lb 0.003 oz Body Mass Index (BMI) 33.5 Intake & Output: Intake and Output for Last 24 Hours 06/05/21 06/06/21 06/07/21 23:59 23:59 23:59 Intake Total 2806.25 / 3213.75 3659.25 / 3914.25 1670.25 / 1670.25 Output Total 5230 / 5730 1400 / 1400 Balance 2806.25 / 2913.75 -1570.75 / -1815.75 270.25 / 270.25 Lab / Micro Data Result Diagrams: 06/07/21 05:50 06/07/21 05:50 Labs: Laboratory Results - last 24 hr 06/06/21 06/07/21 06/07/21 16:21 05:50 05:50 WBC 9.3 RBC 3.56 L Hgb 9.8 L Hct 32.4 L MCV 91.0 MCH 27.5 MCHC 30.2 L RDW Std Deviation 53.2 H RDW Coeff of Benjamin 16.1 H Plt Count 338 MPV 9.7 Immature Gran % (Auto) 0.200 Neut % (Auto) 74.6 H Lymph % (Auto) 8.7 L [place] % (Auto) 7.6 Eos % (Auto) 8.5 H Baso % (Auto) 0.4 Absolute Neuts (auto) 7.0 Absolute Lymphs (auto) 0.81 L Nucleated RBC % 0 Sodium 135 L Potassium 3.6 Chloride 99 Carbon Dioxide 30.0 Anion Gap 6 BUN 11 Creatinine 1.16 Estim Creat Clear Calc 87.30 Est GFR (MDRD) Af Amer 84 Est GFR (MDRD) Non-Af 69 BUN/Creatinine Ratio 9.5 L Glucose 120 H Calcium 9.8 Vancomycin Trough 23.9 H Random Vancomycin 06/07/21 05:50 WBC RBC Hgb Hct MCV MCH MCHC RDW Std Deviation RDW Coeff of Benjamin Plt Count MPV Immature Gran % (Auto) Neut % (Auto) Lymph % (Auto) [place] % (Auto) Eos % (Auto) Baso % (Auto) Absolute Neuts (auto) Absolute Lymphs (auto) Nucleated RBC % Sodium Potassium Chloride Carbon Dioxide Anion Gap BUN Creatinine Estim Creat Clear Calc Est GFR (MDRD) Af Amer Est GFR (MDRD) Non-Af BUN/Creatinine Ratio Glucose Calcium Vancomycin Trough Random Vancomycin 19.9 H Micro: Microbiology 06/05/21 15:00 Blood Culture (Wb) - Right Wrist Blood Culture - Preliminary No growth in 48 hours. 06/05/21 14:37 Blood Culture (Wb) - Port Blood Culture - Preliminary No growth in 48 hours. 06/05/21 21:30 Urine, Clean Catch Legionella Antigen - Final 06/05/21 21:30 Urine, Clean Catch Streptococcus pneumoniae Antigen (M - Final Cardiology Labs/Tests 06/07/21 05:50: WBC 9.3, RBC 3.56 L, Hgb 9.8 L, Hct 32.4 L, MCV 91.0, MCH 27.5, MCHC 30.2 L, Plt Count 338, MPV 9.7, Immature Gran % (Auto) 0.200, Neut % (Auto) 74.6 H, Lymph % (Auto) 8.7 L, [place] % (Auto) 7.6, Eos % (Auto) 8.5 H, Baso % (Auto) 0.4, Absolute Neuts (auto) 7.0, Nucleated RBC % 0 06/07/21 05:50: Sodium 135 L, Potassium 3.6, Chloride 99, Carbon Dioxide 30.0, Anion Gap 6, BUN 11, Creatinine 1.16, Est GFR (MDRD) Af Amer 84, Est GFR (MDRD) Non-Af 69, BUN/Creatinine Ratio 9.5 L, Glucose 120 H, Calcium 9.8 Rhythm: Atrial fibrillation with a controlled ventricular response rate EKG: ECHO: Stress Test: Cardiac Cath: PCI: CT Surgery: Holter monitor: EPS: PPM: CXR: Chest CT Scan: Radiography Diagnostic Testing: Radiology Impression Chest X-Ray 06/05/21 15:23 IMPRESSION: New pulmonary infiltrates in the left hemithorax. Stable changes in the right hemithorax. Electronically Signed: Melquiades Stallings MD at 15:35 EDT , Service support , Physical Exam Const oriented x3 and healthy appearing Orientation / Consciousness: awake HEENT normocephalic Eyes PERRL and conjunctivae normal Neck supple, no JVD and no carotid bruits Chest inspection of chest normal Resp normal respiratory effort and clear to auscultation bilaterally Cardio Palpation: normal PMI Rate: regular rate Rhythm: abnormal rhythm irregularly irregular Heart Sounds: S1 normal and S2 normal Peripheral Pulses: pulses 2+ throughout GI normal to inspection, nondistended, normoactive bowel sounds Extremity normal to inspection and no clubbing, cyanosis or edema Psych mental status grossly normal Assessment & Plan Assessment/Plan (1) Atrial fibrillation with rapid ventricular response: PLAN: He does have a known history of atrial fibrillation with a controlled ventricular response rate. He has failed DC cardioversion previously and has been relegated to rate control and anticoagulation. I would recommend that he continue with his anticoagulation regimen at this time. He was started on intravenous diltiazem and will be transitioned to oral beta- rashi. (2) Dyspnea: QUALIFIERS: Dyspnea type: dyspnea on exertion Qualified Code(s): R06.00 - Dyspnea, unspecified PLAN: He does have dyspnea which appears to be mild diastolic dysfunction, and congestive heart failure. I would recommend a regimen of diuresis as he improves from his lung condition. His echocardiogram demonstrated preserved ejection fraction. (3) Essential (primary) hypertension: PLAN: His blood pressure appears to be stable at this time I would not recommend that we make any major changes. Thank you for allowing me to participate in the care of your patient. Please don't hesitate to call if any issues arise.
[2021-06-07] MEDS: Pravastatin 40 MG Tablet PO (17:06)
[2021-06-08] VITALS (22 sets, daily range): BP systolic 98–116; BP diastolic 56–74; PULSE 65–91; RESP 14–23; TEMP 35.6–37.6; O2SAT 92–99
[2021-06-08] MEDS: 0.9% Saline Lock 10 ML Syringe IV ×5 (05:02→23:46)
[2021-06-08 07:23] LABS: Absolute Neutrophil Count 7.5 X10^3/uL (2.0-7.7); Hematocrit 33.2 % (40-54); Hemoglobin 10.3 g/dL (13.0-16.5); Mean Corpuscular Hgb 28.1 pg (27.0-32.0); Mean Corpuscular Volume 90.5 fL (80-94); Monocyte# 0.24 X10^3/uL; Monocyte% 2.9 % (0-10); NRBC Flagged by Analyzer 0 % (0-5); Neutrophil # 7.48 X10^3/uL (2.7-7.7); Neutrophil % 90.3 % (47-70); POSITIVE DIFFERENTIAL YES; Platelet Count 369 K/mm3 (150-450); RBC Distribution Width CV 15.9 % (11.6-14.6); RBC Distribution Width SD 52.9 fl (35.1-43.9); Red Blood Count 3.67 M/mm3 (4.6-6.2); White Blood Count 8.3 K/mm3 (4.4-11.0)
[2021-06-08] MEDS: Acetaminophen 325 MG Tablet 650 MG PO (07:29)
[2021-06-08] MEDS: Ipratropium/Albuterol Sulfate 3 ML AMPUL.NEB INHALATION ×4 (07:34→19:35)
[2021-06-08 07:35] LABS: Differential Indicated SCAN CRITERIA MET
[2021-06-08 07:52] LABS: Anion Gap 5 (5-15); BUN 22 mg/dL (7-18); BUN/Creat Ratio 19.6 RATIO (10-20); Calcium,Total 10.2 mg/dL (8.5-10.1); Chloride 100 mmol/L (98-107); Creatinine, Serum 1.12 mg/dL (0.70-1.30); EST Glomerular Filtration Rate 72 mL/min (>60); Est Glom Filt Rate - Afr Amer 87 mL/min (>60); Estimated Creatinine Clearance 90.42 ml/min; Glucose 137 mg/dL (74-106); Potassium 3.9 mmol/L (3.5-5.1); Sodium Level 136 mmol/L (136-145)
--- NOTE | 2021-06-08 08:12 | PN.CC_ITS ---
Assessment & Plan Assessment/Plan (1) Respiratory failure: QUALIFIERS: Chronicity: acute Respiratory failure complication: hypoxia Qualified Code(s): J96.01 - Acute respiratory failure with hypoxia (2) Small cell lung cancer, right upper lobe: (3) Pancytopenia due to chemotherapy: (4) Atrial fibrillation with rapid ventricular response: (5) Pleural effusion, right: (6) ALEX (obstructive sleep apnea): PLAN: RECOMMENDATIONS: 1. Continue systemic steroids 2. Continue to Airvo and BiPAP therapy to support oxygenation. Wean oxygen as tolerated 3. Continue empiric antibiotics 4. Rate control and diuresis per cardiology 5. Hold Xarelto for possible thoracentesis on Thursday 6. Obtain sputum culture. Possible bronchoscopy if intubated IMPRESSIONS: 1. Acute hypoxic respiratory failure Unclear etiology at this time. Congestive heart failure secondary to A. fib with RVR would be a consideration. However, findings on CT scan are more consistent with pneumonitis on my review. This could be secondary to patient's immunotherapy. Will initiate IV steroids immediately. Infection would also be a consideration. Patient is already on broad-spectrum antibiotics. If patient deteriorates to the point of intubation, bronchoscopy would be a consideration for BAL to exclude atypical infection such as fungus. Patient is not on chronic steroid therapy to suggest PCP as an etiology. Patient has not improved with diuretic therapy and rate control suggesting CHF is less likely. Cardiology is following. Patient is willing to be intubated if necessary. Patient has responded well to Airvo and BiPAP therapy. Anticipate steroids will take 24 to 48 hours to see improvements. Continue to wean oxygen as tolerated. Heart rate much better controlled at this time. 2. A. fib with RVR/chronic diastolic CHF Patient with significant A. fib with RVR on presentation. However, ejection fraction was preserved when tested recently. Cardiology is currently following. Patient does appear to be rate controlled at this time. Anticoagulation will be held given patient's high likelihood of needing procedures during this hospitalization. Patient does not appear to be respo nding to diuretics and rate control from a respiratory standpoint. 3. 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 Radiographic pattern is concerning for grade 3/4 pneumonitis on my review. This may account for fever and relates temporally to the onset of symptoms. There is been a significant change in interstitial pattern compared to February surveillance by oncology. However, the pleural effusion appears to be relatively stable since that time. Patient does not have significant lobe collapse to suggest an etiology of progression of cancer leading to hypoxic respiratory failure. 4. Cannabis use/obesity/hypertension/hyperlipidemia/anxiety/depression Complicates care, management, recovery and prognosis. Okay to continue with baseline medications from my perspective. Anticoagulation will be held for possible needs for intervention. Subjective Subjective Patient did well overnight. Patient's respiratory status is much better controlled with Airvo during the day and BiPAP at night with sleep. Patient has developed a headache overnight, but appears to respond to Tylenol. Patient is not reporting any bleeding and feels subjectively that he is breathing better compared to yesterday. Objective Data Objective Data Vital Signs: Vital Signs Temp Pulse Resp BP Pulse Ox 36.7 C 79 21 H 116/69 92 06/08/21 06:00 06/08/21 07:42 06/08/21 07:35 06/08/21 06:00 06/08/21 07:35 Oxygen Flow Rate (L/min) 40 Oxygen Delivery Method Airvo Weight: 124.738 kg Body Mass Index (BMI) 33.5 Intake & Output: Intake and Output for Last 24 Hours 06/06/21 06/07/21 06/08/21 23:59 23:59 23:59 Intake Total 3659.25 / 3914.25 1820.25 / 1820.25 730 / 730 Output Total 5230 / 5730 1600 / 1600 625 / 625 Balance -1570.75 / -1815.75 220.25 / 220.25 105 / 105 Lab / Micro Data Result Diagrams: 06/08/21 07:03 06/08/21 07:03 Labs: Laboratory Results - last 24 hr 06/08/21 06/08/21 07:03 07:03 WBC 8.3 RBC 3.67 L Hgb 10.3 L Hct 33.2 L MCV 90.5 MCH 28.1 MCHC 31.0 L RDW Std Deviation 52.9 H RDW Coeff of Benjamin 15.9 H Plt Count 369 MPV 10.0 Immature Gran % (Auto) 0.800 Neut % (Auto) 90.3 H Lymph % (Auto) 6.0 L [place] % (Auto) 2.9 Eos % (Auto) 0.0 Baso % (Auto) 0.0 Absolute Neuts (auto) 7.5 Absolute Lymphs (auto) 0.50 L Nucleated RBC % 0 Sodium 136 Potassium 3.9 Chloride 100 Carbon Dioxide 31.0 Anion Gap 5 BUN 22 H Creatinine 1.12 Estim Creat Clear Calc 90.42 Est GFR (MDRD) Af Amer 87 Est GFR (MDRD) Non-Af 72 BUN/Creatinine Ratio 19.6 Glucose 137 H Calcium 10.2 H Micro: Microbiology 06/07/21 12:02 Sputum, Expectorated/Coughed Gram Stain - Final 06/05/21 15:00 Blood Culture (Wb) - Right Wrist Blood Culture - Preliminary No growth in 48 hours. 06/05/21 14:37 Blood Culture (Wb) - Port Blood Culture - Preliminary No growth in 48 hours. 06/05/21 21:30 Urine, Clean Catch Legionella Antigen - Final 06/05/21 21:30 Urine, Clean Catch Streptococcus pneumoniae Antigen (M - Final Radiography Diagnostic Testing: Radiology Impression Chest X-Ray 06/05/21 15:23 IMPRESSION: New pulmonary infiltrates in the left hemithorax. Stable changes in the right hemithorax. Electronically Signed: Melquiades Stallings MD at 15:35 EDT , Service support , Physical Exam Const alert, oriented x3 and no apparent distress General Appearance: cooperative and well developed Nutritional Appearance: obese HEENT normocephalic, head/scalp atraumatic and moist oral mucous membranes Eyes PERRL and EOMs intact bilaterally Neck full ROM and no lymphadenopathy Chest inspection of chest normal Resp normal respiratory effort and no use of accessory muscles Effort and Inspection: able to speak in complete sentences Auscultation: clear to auscultation bilaterally; Negative for rales, rhonchi or wheezes Percussion: Negative for dullness Cardio regular rate, S1 normal heart sound, S2 normal heart sound, no murmurs, no rub and no gallops Rhythm: abnormal rhythm irregularly irregular GI normal to inspection, nondistended, normoactive bowel sounds no CVA tenderness Extremity no clubbing, cyanosis or edema Skin no rashes or lesions noted Neuro oriented x3, CN's II-XII intact bilaterally, moves all extremities and no focal motor deficits Psych cooperative and affect normal Charges/Coding Visit Charges Inpatient E&M: 32104 Subs Hosp L3
[2021-06-08] MEDS: Amiodarone 200 MG Tablet PO ×2 (09:02→21:54)
[2021-06-08] MEDS: Doxazosin 1 MG Tablet 2 MG PO (09:02)
[2021-06-08] MEDS: Furosemide 40 MG/4 ML Vial IV ×2 (09:02→17:27)
[2021-06-08] MEDS: Metoprolol Tartrate 50 MG Tablet PO (09:04)
[2021-06-08] MEDS: FLUoxetine 20 MG Capsule 60 MG PO (09:04)
[2021-06-08] MEDS: Ergocalciferol 1.25 MG (50, 000 UNIT) Capsule PO (09:05)
[2021-06-08 09:31] LABS: Differential Comment SCANNED
--- NOTE | 2021-06-08 10:37 | PCM.PN.HOSP ---
Documented by User: Cosmo PACK 06/08/21 10:47 Subjective Subjective Patient is a 55-year-old male comfortably resting in bed, alert oriented x3. Patient reports subjective improvement in his shortness of breath from yesterday. Denies chest pain, shortness of breath, palpitations, hemoptysis, sputum production, fever, chills, N/V/D. Objective Data Objective Data Vital Signs: Vital Signs Temp Pulse Resp BP Pulse Ox 97.6 F L 90 17 107/74 96 06/08/21 08:46 06/08/21 09:04 06/08/21 08:46 06/08/21 08:46 06/08/21 08:46 Oxygen Flow Rate (L/min) 40 Oxygen Delivery Method Airvo Weight: 275 lb 0.003 oz Body Mass Index (BMI) 33.5 Intake & Output: Intake and Output for Last 24 Hours 06/06/21 06/07/21 06/08/21 23:59 23:59 23:59 Intake Total 3659.25 / 3914.25 1820.25 / 1820.25 780 / 780 Output Total 5230 / 5730 1600 / 1600 625 / 625 Balance -1570.75 / -1815.75 220.25 / 220.25 155 / 155 Lab / Micro Data Result Diagrams: 06/08/21 07:03 06/08/21 07:03 Labs: Laboratory Results - last 24 hr 06/08/21 06/08/21 07:03 07:03 WBC 8.3 RBC 3.67 L Hgb 10.3 L Hct 33.2 L MCV 90.5 MCH 28.1 MCHC 31.0 L RDW Std Deviation 52.9 H RDW Coeff of Benjamin 15.9 H Plt Count 369 MPV 10.0 Immature Gran % (Auto) 0.800 Neut % (Auto) 90.3 H Lymph % (Auto) 6.0 L [place] % (Auto) 2.9 Eos % (Auto) 0.0 Baso % (Auto) 0.0 Absolute Neuts (auto) 7.5 Absolute Lymphs (auto) 0.50 L Nucleated RBC % 0 Differential Comment SCANNED Sodium 136 Potassium 3.9 Chloride 100 Carbon Dioxide 31.0 Anion Gap 5 BUN 22 H Creatinine 1.12 Estim Creat Clear Calc 90.42 Est GFR (MDRD) Af Amer 87 Est GFR (MDRD) Non-Af 72 BUN/Creatinine Ratio 19.6 Glucose 137 H Calcium 10.2 H Micro: Microbiology 06/07/21 12:02 Sputum, Expectorated/Coughed Gram Stain - Final 06/05/21 15:00 Blood Culture (Wb) - Right Wrist Blood Culture - Preliminary No growth in 48 hours. 06/05/21 14:37 Blood Culture (Wb) - Port Blood Culture - Preliminary No growth in 48 hours. 06/05/21 21:30 Urine, Clean Catch Legionella Antigen - Final 06/05/21 21:30 Urine, Clean Catch Streptococcus pneumoniae Antigen (M - Final Radiography Diagnostic Testing: Radiology Impression Chest X-Ray 06/05/21 15:23 IMPRESSION: New pulmonary infiltrates in the left hemithorax. Stable changes in the right hemithorax. Electronically Signed: Melquiades Stallings MD at 15:35 EDT , Service support , Physical Exam Const alert, oriented x3 and no apparent distress HEENT head/scalp atraumatic and moist oral mucous membranes Head and Scalp: normocephalic Eyes EOMs intact bilaterally and conjunctivae normal Neck no lymphadenopathy, supple and no JVD Resp Effort and Inspection: able to speak in complete sentences and labored Auscultation: clear to auscultation bilaterally Cardio regular rate, regular rhythm, no murmurs and no JVD GI normal to inspection, nondistended, normoactive bowel sounds, soft to palpation and non-tender Extremity normal to inspection, full ROM and no clubbing, cyanosis or edema Skin no rashes or lesions noted, no wounds and skin turgor normal Neuro CN's II-XII intact bilaterally Psych affect normal Assessment & Plan Assessment/Plan (1) Pneumonia: QUALIFIERS: Laterality: bilateral Lung location: unspecified part of lung Pneumonia type: due to unspecified organism Qualified Code(s): J18.9 - Pneumonia, unspecified organism (2) Acute respiratory failure with hypoxia: (3) Respiratory failure: QUALIFIERS: Chronicity: acute Respiratory failure complication: hypoxia Qualified Code(s): J96.01 - Acute respiratory failure with hypoxia (4) Small cell lung cancer, right upper lobe: (5) Atrial fibrillation with rapid ventricular response: (6) Essential (primary) hypertension: (7) Hyperlipidemia: QUALIFIERS: Hyperlipidemia type: unspecified Qualified Code(s): E78.5 - Hyperlipidemia, unspecified PLAN: Day 4: See subjective for patient presentation. Discharge planning: Patient remained admitted overnight however desires to return home upon discharge. 1) Dyspnea, suspect secondary to CHF vs Pneumonia vs Radiation pneumonitis . Vital signs stable and patient is afebrile. currently satting 96% on 40 L/min via Airvo. CBC is unremarkable and does not demonstrate a leukocytosis. Blood cultures demonstrate no growth. Legionella and strep pneumo urinary antigen is negative. ECHO 06/06; normal LV function and size, an estimated EF of 55%. Plan; continue empiric vancomycin and Zosyn until culutres return, continue furosemide 40 mg IV twice daily, continue Arava and BiPAP, hold home Xarelto for possible thoracentesis on 06/10, continue Solu Medrol. 2) A. Fib w/ RVR Patient already anticoagulated on Xarelto. Patient has been intiiated on Metoprolol 50 milligrams p.o. twice daily and amiodarone 200 mg p.o. twice daily for rate and rhythm control per cardiology. 3) Acute hypoxic respiratory insufficiency Hypoxic on admission. Plan; as above. 4) Lung cancer, metastatic small cell Stage IIIb, follow with oncology as an oupatient. DVT Prophylaxis - Hold home Xarelto as above. Documented by User: Dr. Fredi Broussard, 06/08/21 11:35 Subjective Subjective Feeling 100% better. Tolerating Airvo. Objective Data Lab / Micro Data Result Diagrams: 06/08/21 07:03 06/08/21 07:03 Physical Exam Const alert Constitutional Narrative: on Airvo Resp normal respiratory effort and no retractions Resp Narrative: coarse breath sounds bilaterally. Cardio regular rate, regular rhythm, S1 normal heart sound and S2 normal heart sound GI normal to inspection, nondistended, normoactive bowel sounds, soft to palpation, non-tender and non-distended Extremity normal to inspection Extremity Narrative: no edema Assessment & Plan Assessment/Plan (1) Acute respiratory failure with hypoxia: PLAN: 1. Pneumonia Presumed pneumococcal given the extent of it we will treat him with broad-spectrum antibiotics with vancomycin and Pipracil/tazobactam. urinary antigens for Streptococcus and Legionella negative Follow-up COVID-19 testing. Patient has been vaccinated for COVID-19 but certainly is immunocompromise and could be resistant susceptible to recurrent or new delta variance. Pulmonary toilet Patient does not have a white count nor fever at this time but was having fever apparently as outpatient. Other possibilities could be ARDS versus COVID-19 versus CHF versus radiation pneumonitis. Patient echo June 2020 where his EF was 60% at that time Unclear if infectious. Will continue abx for another 24h pending cx results. Add furosemide 2. A. fib with RVR improved Exacerbated due to the underlying pulmonary process Not on any rate controlling medication at baseline dilt gtt and amiodarone Patient already anticoagulated on rivaroxaban 3. Acute hypoxic respiratory failure Worse 2/2 lung cancer, pleural effusion, GGO Wean oxygen as tolerated Pulm consult: concerning for pneumonitis, possibly immunotherpay-induced. Started on methylpred. 4. Lung cancer, metastatic small cell Stage IIIb Complicates overall care and recovery Follow-up with oncology 5. VTE prophylaxis: Not indicated as patient is already anticoagulated. Charges/Coding Visit Charges Inpatient E&M: 96173 Subs Hosp L3
--- NOTE | 2021-06-08 11:21 | PCM.PN.CARD ---
Objective Data Vital Signs: Vital Signs Temp Pulse Resp BP Pulse Ox 97.6 F L 90 17 107/74 96 06/08/21 08:46 06/08/21 09:04 06/08/21 08:46 06/08/21 08:46 06/08/21 08:46 Oxygen Flow Rate (L/min) 40 Oxygen Delivery Method Airvo Weight: 275 lb 0.003 oz Body Mass Index (BMI) 33.5 Intake & Output: Intake and Output for Last 24 Hours 06/06/21 06/07/21 06/08/21 23:59 23:59 23:59 Intake Total 3659.25 / 3914.25 1820.25 / 1820.25 780 / 780 Output Total 5230 / 5730 1600 / 1600 625 / 625 Balance -1570.75 / -1815.75 220.25 / 220.25 155 / 155 Lab / Micro Data Result Diagrams: 06/08/21 07:03 06/08/21 07:03 Labs: Laboratory Results - last 24 hr 06/08/21 06/08/21 07:03 07:03 WBC 8.3 RBC 3.67 L Hgb 10.3 L Hct 33.2 L MCV 90.5 MCH 28.1 MCHC 31.0 L RDW Std Deviation 52.9 H RDW Coeff of Benjamin 15.9 H Plt Count 369 MPV 10.0 Immature Gran % (Auto) 0.800 Neut % (Auto) 90.3 H Lymph % (Auto) 6.0 L [place] % (Auto) 2.9 Eos % (Auto) 0.0 Baso % (Auto) 0.0 Absolute Neuts (auto) 7.5 Absolute Lymphs (auto) 0.50 L Nucleated RBC % 0 Differential Comment SCANNED Sodium 136 Potassium 3.9 Chloride 100 Carbon Dioxide 31.0 Anion Gap 5 BUN 22 H Creatinine 1.12 Estim Creat Clear Calc 90.42 Est GFR (MDRD) Af Amer 87 Est GFR (MDRD) Non-Af 72 BUN/Creatinine Ratio 19.6 Glucose 137 H Calcium 10.2 H Micro: Microbiology 06/07/21 12:02 Sputum, Expectorated/Coughed Gram Stain - Final 06/05/21 15:00 Blood Culture (Wb) - Right Wrist Blood Culture - Preliminary No growth in 48 hours. 06/05/21 14:37 Blood Culture (Wb) - Port Blood Culture - Preliminary No growth in 48 hours. 06/05/21 21:30 Urine, Clean Catch Legionella Antigen - Final 06/05/21 21:30 Urine, Clean Catch Streptococcus pneumoniae Antigen (M - Final Cardiology Labs/Tests 06/08/21 07:03: WBC 8.3, RBC 3.67 L, Hgb 10.3 L, Hct 33.2 L, MCV 90.5, MCH 28.1, MCHC 31.0 L, Plt Count 369, MPV 10.0, Immature Gran % (Auto) 0.800, Neut % (Auto) 90.3 H, Lymph % (Auto) 6.0 L, [place] % (Auto) 2.9, Eos % (Auto) 0.0, Baso % (Auto) 0.0, Absolute Neuts (auto) 7.5, Nucleated RBC % 0 06/08/21 07:03: Sodium 136, Potassium 3.9, Chloride 100, Carbon Dioxide 31.0, Anion Gap 5, BUN 22 H, Creatinine 1.12, Est GFR (MDRD) Af Amer 87, Est GFR (MDRD) Non-Af 72, BUN/Creatinine Ratio 19.6, Glucose 137 H, Calcium 10.2 H Rhythm: EKG: ECHO: Stress Test: Cardiac Cath: PCI: CT Surgery: Holter monitor: EPS: PPM: CXR: Chest CT Scan: Radiography Diagnostic Testing: Radiology Impression Chest X-Ray 06/05/21 15:23 IMPRESSION: New pulmonary infiltrates in the left hemithorax. Stable changes in the right hemithorax. Electronically Signed: Melquiades Stallings MD at 15:35 EDT , Service support , Physical Exam Const oriented x3 and healthy appearing Orientation / Consciousness: awake HEENT normocephalic Eyes PERRL and conjunctivae normal Neck supple, no JVD and no carotid bruits Chest inspection of chest normal Resp normal respiratory effort and clear to auscultation bilaterally Cardio Palpation: normal PMI Rate: regular rate Rhythm: abnormal rhythm irregularly irregular Heart Sounds: S1 normal and S2 normal Peripheral Pulses: pulses 2+ throughout GI normal to inspection, nondistended, normoactive bowel sounds Extremity normal to inspection and no clubbing, cyanosis or edema Psych mental status grossly normal Assessment & Plan Assessment/Plan (1) Atrial fibrillation with rapid ventricular response: PLAN: He does have a known history of atrial fibrillation with a controlled ventricular response rate. He has failed DC cardioversion previously and has been relegated to rate control and anticoagulation. I would recommend that he continue with his anticoagulation regimen at this time. He has started on the beta-rashi and is tolerating it together with the oral amiodarone for rate control. (2) Dyspnea: QUALIFIERS: Dyspnea type: dyspnea on exertion Qualified Code(s): R06.00 - Dyspnea, unspecified PLAN: He does have dyspnea which appears to be mild diastolic dysfunction, and congestive heart failure. I would recommend a regimen of diuresis as he improves from his lung condition. His echocardiogram demonstrated preserved ejection fraction. (3) Essential (primary) hypertension: PLAN: His blood pressure appears to be stable at this time I would not recommend that we make any major changes. Thank you for allowing me to participate in the care of your patient. Please don't hesitate to call if any issues arise.
[2021-06-08] MEDS: Pravastatin 40 MG Tablet PO (17:27)
[2021-06-08 20:59] LABS: Vancomycin, Trough Level 28.9 ug/mL (5.0-15.0)
--- NOTE | 2021-06-08 22:20 | NURSING ---
Messaged dr Madden regarding patients blood pressure and lopressor for the evening. Physician returned call states ok to give.
--- NOTE | 2021-06-08 22:29 | PCM.RX.CS ---
Consult Pharmacy has been consulted to manage selected antiobiotic: Vancomycin Type of Consult: Follow-up Suspected Infection: Pneumonia Prior Doses of Antibiotics Received/Current Regimen: Medications Vancomycin HCl 1,500 mg/ (Sodium Chloride) 530 mls @ 250 mls/hr IV Q12H CLINT Last Admin: 06/08/21 21:03 Dose: 250 mls/hr Labs: Sodium 136 mmol/L (136-145) 06/08/21 07:03 Potassium 3.9 mmol/L (3.5-5.1) 06/08/21 07:03 Chloride 100 mmol/L (98-107) 06/08/21 07:03 Carbon Dioxide 31.0 mmol/L (21.0-32.0) 06/08/21 07:03 Anion Gap 5 (5-15) 06/08/21 07:03 BUN 22 mg/dL (7-18) H 06/08/21 07:03 Creatinine 1.12 mg/dL (0.70-1.30) 06/08/21 07:03 Est GFR (MDRD) Af Amer 87 mL/min (>60) 06/08/21 07:03 Est GFR (MDRD) Non-Af 72 mL/min (>60) 06/08/21 07:03 BUN/Creatinine Ratio 19.6 RATIO (10-20) 06/08/21 07:03 Glucose 137 mg/dL (74-106) H 06/08/21 07:03 Vancomycin Trough 28.9 ug/mL (5.0-15.0) H 06/08/21 20:24 Random Vancomycin 19.9 ug/mL (0.0-15.0) H 06/07/21 05:50 Microbiology: Microbiology 06/07/21 12:02 Sputum, Expectorated/Coughed Gram Stain - Final 06/07/21 12:02 Sputum, Expectorated/Coughed Respiratory Culture - Preliminary Presumptive C albicans 06/05/21 15:00 Blood Culture (Wb) - Right Wrist Blood Culture - Preliminary No growth in 48 hours. 06/05/21 14:37 Blood Culture (Wb) - Port Blood Culture - Preliminary No growth in 48 hours. 06/05/21 21:30 Urine, Clean Catch Legionella Antigen - Final 06/05/21 21:30 Urine, Clean Catch Streptococcus pneumoniae Antigen (M - Final Weight used for dosin kg Estimated Creatinine Clearance: 90 Goal Trough: 15-20 mcg/mL Pharmacy Plan for Drug Dosing: Vancomycin trough level was again high, this time at 28.4. Will halt current dosing and re-draw a random trough level 06/09/21 to determine further dosing. Pharmacy Service will continue to monitor and adjust dosing as required. Follow-Up Labs: Trough Vancomycin - random Labs to be done on [date and time ordered]: 06/09/21 @1999
--- NOTE | 2021-06-08 23:10 | NURSING ---
Rechecked patients blood pressure prior to administration of lopressor tonight. Result was 100/60. Pt refused dose of lopressor tonight stating I don't want to pass out.
--- NOTE | 2021-06-08 23:50 | NURSING ---
[facility]IVE [facility] Zosyn dose given late d/t incapatability with vancomycin and only one IV line at this time. Initialized on 06/09/21 04:30 - END OF NOTE
[2021-06-09] VITALS (17 sets, daily range): BP systolic 93–136; BP diastolic 52–82; PULSE 63–109; RESP 14–26; TEMP 36.2–36.8; O2SAT 92–98
--- NOTE | 2021-06-09 04:30 | NURSING ---
Zosyn dose given late d/t incapatability with vancomycin and only one IV line at this time.
[2021-06-09 06:21] LABS: Absolute Neutrophil Count 12.3 X10^3/uL (2.0-7.7); Basophil# 0.01 X10^3/uL; Basophil% 0.1 % (0-1); Hematocrit 31.6 % (40-54); Hemoglobin 9.5 g/dL (13.0-16.5); Lymphocyte % 4.5 % (19-41); Mean Corp Hgb Conc 30.1 g/dL (32-36); Mean Corpuscular Hgb 27.9 pg (27.0-32.0); Mean Corpuscular Volume 92.9 fL (80-94); Mean Platelet Vol. 10.1 fl (6.2-12.0); Monocyte% 2.3 % (0-10); NRBC Flagged by Analyzer 0 % (0-5); Neutrophil # 12.27 X10^3/uL (2.7-7.7); Neutrophil % 92.4 % (47-70); POSITIVE DIFFERENTIAL YES; Platelet Count 395 K/mm3 (150-450); RBC Distribution Width CV 15.9 % (11.6-14.6); RBC Distribution Width SD 54.4 fl (35.1-43.9); White Blood Count 13.3 K/mm3 (4.4-11.0)
[2021-06-09 06:23] LABS: Differential Indicated SCAN CRITERIA MET
[2021-06-09 06:36] LABS: Anion Gap 6 (5-15); BUN 34 mg/dL (7-18); BUN/Creat Ratio 27.6 RATIO (10-20); Calcium,Total 9.9 mg/dL (8.5-10.1); Chloride 100 mmol/L (98-107); Creatinine, Serum 1.23 mg/dL (0.70-1.30); EST Glomerular Filtration Rate 65 mL/min (>60); Est Glom Filt Rate - Afr Amer 78 mL/min (>60); Estimated Creatinine Clearance 82.33 ml/min; Glucose 145 mg/dL (74-106); Potassium 4.1 mmol/L (3.5-5.1); Sodium Level 137 mmol/L (136-145)
[2021-06-09 06:58] LABS: Differential Comment SCANNED; Hypochromasia RARE
[2021-06-09] MEDS: Ipratropium/Albuterol Sulfate 3 ML AMPUL.NEB INHALATION ×3 (07:20→19:10)
--- NOTE | 2021-06-09 07:47 | PCM.PN.INT ---
Assessment & Plan Assessment/Plan (1) Respiratory failure: QUALIFIERS: Chronicity: acute Respiratory failure complication: hypoxia Qualified Code(s): J96.01 - Acute respiratory failure with hypoxia (2) Small cell lung cancer, right upper lobe: (3) Pancytopenia due to chemotherapy: (4) Atrial fibrillation with rapid ventricular response: (5) Pleural effusion, right: (6) ALEX (obstructive sleep apnea): PLAN: RECOMMENDATIONS: 1. Continue systemic steroids 2. Continue to use nasal cannula and BiPAP therapy to support oxygenation. Wean oxygen as tolerated 3. Okay to discontinue antibiotics given negative cultures 4. Rate control and diuresis per cardiology 5. Hold Xarelto for possible thoracentesis on Thursday 6. Obtain sputum culture. Possible bronchoscopy if intubated IMPRESSIONS: 1. Acute hypoxic respiratory failure Unclear etiology at this time. Congestive heart failure secondary to A. fib with RVR would be a consideration. However, findings on CT scan are more consistent with pneumonitis on my review. This could be secondary to patient's immunotherapy. Will initiate IV steroids immediately. Infection would also be a consideration. Patient is already on broad-spectrum antibiotics. If patient deteriorates to the point of intubation, bronchoscopy would be a consideration for BAL to exclude atypical infection such as fungus. Patient is not on chronic steroid therapy to suggest PCP as an etiology. Patient has not improved with diuretic therapy and rate control suggesting CHF is less likely. Cardiology is following. Patient is willing to be intubated if necessary. Patient with some improvement in oxygenation after 48 hours of steroids. We will continue IV steroids at the current rate. Patient may require a protracted prednisone burst. On Thursday, may need to inform oncology about concerns for reaction to immunotherapy. Continue to wean oxygen as tolerated. It is unclear if a thoracentesis will be necessary if patient continues to improve. If thoracentesis is not pursued, reinitiation of anticoagulation would be reasonable. 2. A. fib with RVR/chronic diastolic CHF Patient with significant A. fib with RVR on presentation. However, ejection fraction was preserved when tested recently. Cardiology is currently following. Patient does appear to be rate controlled at this time. Anticoagulation will be held given patient's high likelihood of needing procedures during this hospitalization. Patient does not appear to be responding to diuretics and rate control from a respiratory standpoint. 3. 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 Radiographic pattern is concerning for grade 3/4 pneumonitis on my review. This may account for fever and relates temporally to the onset of symptoms. There is been a significant change in interstitial pattern compared to February surveillance by oncology. However, the pleural effusion appears to be relatively stable since that time. Patient does not have significant lobe collapse to suggest an etiology of progression of cancer leading to hypoxic respiratory failure. Delay, current immunotherapy may have to be changed given this reaction 4. Cannabis use/obesity/hypertension/hyperlipidemia/anxiety/depression Complicates care, management, recovery and prognosis. Okay to continue with baseline medications from my perspective. Anticoagulation will be held for possible needs for intervention. Subjective Subjective Patient feels subjectively improved compared to yesterday. Patient was able to tolerate BiPAP overnight and states his dyspnea is improved compared to yesterday. Patient denies any chest pain. Patient has been using nasal cannula through his mouth as he has difficulty tolerating it through his nose. Objective Data Objective Data Vital Signs: Vital Signs Temp Pulse Resp BP Pulse Ox 36.2 C L 63 18 102/66 96 06/09/21 03:30 06/09/21 03:30 06/09/21 03:30 06/09/21 03:30 06/09/21 03:30 Oxygen Flow Rate (L/min) 12 Oxygen Delivery Method Nasal Cannula Weight: 124.738 kg Body Mass Index (BMI) 33.5 Intake & Output: Intake and Output for Last 24 Hours 06/07/21 06/08/21 06/09/21 23:59 23:59 23:59 Intake Total 1820.25 / 1820.25 2850 / 3150 650 / 650 Output Total 1600 / 1600 925 / 1825 900 / 900 Balance 220.25 / 220.25 1925 / 1325 -250 / -250 Lab / Micro Data Result Diagrams: 06/09/21 04:41 06/09/21 04:41 Labs: Laboratory Results - last 24 hr 06/08/21 06/08/21 06/08/21 07:03 07:03 20:24 WBC RBC Hgb Hct MCV MCH MCHC RDW Std Deviation RDW Coeff of Benjamin Plt Count MPV Immature Gran % (Auto) Neut % (Auto) Lymph % (Auto) [place] % (Auto) Eos % (Auto) Baso % (Auto) Absolute Neuts (auto) Absolute Lymphs (auto) Nucleated RBC % Differential Comment SCANNED Hypochromasia Sodium 136 Potassium 3.9 Chloride 100 Carbon Dioxide 31.0 Anion Gap 5 BUN 22 H Creatinine 1.12 Estim Creat Clear Calc 90.42 Est GFR (MDRD) Af Amer 87 Est GFR (MDRD) Non-Af 72 BUN/Creatinine Ratio 19.6 Glucose 137 H Calcium 10.2 H Vancomycin Trough 28.9 H 06/09/21 06/09/21 04:41 04:41 WBC 13.3 H RBC 3.40 L Hgb 9.5 L Hct 31.6 L MCV 92.9 MCH 27.9 MCHC 30.1 L RDW Std Deviation 54.4 H RDW Coeff of Benjamin 15.9 H Plt Count 395 MPV 10.1 Immature Gran % (Auto) 0.700 Neut % (Auto) 92.4 H Lymph % (Auto) 4.5 L [place] % (Auto) 2.3 Eos % (Auto) 0.0 Baso % (Auto) 0.1 Absolute Neuts (auto) 12.3 H Absolute Lymphs (auto) 0.60 L Nucleated RBC % 0 Differential Comment SCANNED Hypochromasia RARE Sodium 137 Potassium 4.1 Chloride 100 Carbon Dioxide 31.0 Anion Gap 6 BUN 34 H Creatinine 1.23 Estim Creat Clear Calc 82.33 Est GFR (MDRD) Af Amer 78 Est GFR (MDRD) Non-Af 65 BUN/Creatinine Ratio 27.6 H Glucose 145 H Calcium 9.9 Vancomycin Trough Micro: Microbiology 06/07/21 12:02 Sputum, Expectorated/Coughed Gram Stain - Final 06/07/21 12:02 Sputum, Expectorated/Coughed Respiratory Culture - Preliminary Presumptive C albicans 06/05/21 15:00 Blood Culture (Wb) - Right Wrist Blood Culture - Preliminary No growth in 48 hours. 06/05/21 14:37 Blood Culture (Wb) - Port Blood Culture - Preliminary No growth in 48 hours. 06/05/21 21:30 Urine, Clean Catch Legionella Antigen - Final 06/05/21 21:30 Urine, Clean Catch Streptococcus pneumoniae Antigen (M - Final Physical Exam Const alert, oriented x3 and no apparent distress General Appearance: cooperative, well developed and in distress Positive for moderate Nutritional Appearance: obese HEENT normocephalic, head/scalp atraumatic and moist oral mucous membranes Eyes PERRL and EOMs intact bilaterally Neck full ROM and no lymphadenopathy Chest inspection of chest normal Resp normal respiratory effort and no use of accessory muscles Effort and Inspection: able to speak in complete sentences and symmetric chest movement; Negative for uses accessory muscles, tracheal deviation or tripod positioning Auscultation: clear to auscultation bilaterally; Negative for rales, rhonchi or wheezes Percussion: Negative for dullness Cardio regular rate, S1 normal heart sound, S2 normal heart sound, no murmurs, no rub and no gallops Rhythm: abnormal rhythm irregularly irregular GI normal to inspection, nondistended, normoactive bowel sounds no CVA tenderness Extremity no clubbing, cyanosis or edema Skin no rashes or lesions noted Neuro oriented x3, CN's II-XII intact bilaterally, moves all extremities and no focal motor deficits Psych cooperative and affect normal Charges/Coding Visit Charges Inpatient E&M: 05683 Subs Hosp L3
[2021-06-09] MEDS: FLUoxetine 20 MG Capsule 60 MG PO (09:12)
[2021-06-09] MEDS: Metoprolol Tartrate 50 MG Tablet PO (09:12)
[2021-06-09] MEDS: Amiodarone 200 MG Tablet PO ×2 (09:12→21:31)
[2021-06-09] MEDS: Doxazosin 1 MG Tablet 2 MG PO (09:13)
[2021-06-09] MEDS: Furosemide 40 MG/4 ML Vial IV ×2 (10:30→17:03)
[2021-06-09] MEDS: 0.9% Saline Lock 10 ML Syringe IV ×3 (10:31→17:03)
--- NOTE | 2021-06-09 10:54 | PN.CARD_ITS ---
Subjective Subjective Patient seen and evaluated. Appears to be doing well. Objective Data Vital Signs: Vital Signs Temp Pulse Resp BP Pulse Ox 98.1 F 91 16 128/69 H 95 06/09/21 08:46 06/09/21 09:12 06/09/21 08:46 06/09/21 09:12 06/09/21 08:46 Oxygen Flow Rate (L/min) 12 Oxygen Delivery Method Nasal Cannula Weight: 275 lb 0.003 oz Body Mass Index (BMI) 33.5 Intake & Output: Intake and Output for Last 24 Hours 06/07/21 06/08/21 06/09/21 23:59 23:59 23:59 Intake Total 1820.25 / 1820.25 2850 / 3150 700 / 700 Output Total 1600 / 1600 925 / 1825 900 / 900 Balance 220.25 / 220.25 1925 / 1325 -200 / -200 Lab / Micro Data Result Diagrams: 06/09/21 04:41 06/09/21 04:41 Labs: Laboratory Results - last 24 hr 06/08/21 06/09/21 06/09/21 20:24 04:41 04:41 WBC 13.3 H RBC 3.40 L Hgb 9.5 L Hct 31.6 L MCV 92.9 MCH 27.9 MCHC 30.1 L RDW Std Deviation 54.4 H RDW Coeff of Benjamin 15.9 H Plt Count 395 MPV 10.1 Immature Gran % (Auto) 0.700 Neut % (Auto) 92.4 H Lymph % (Auto) 4.5 L [place] % (Auto) 2.3 Eos % (Auto) 0.0 Baso % (Auto) 0.1 Absolute Neuts (auto) 12.3 H Absolute Lymphs (auto) 0.60 L Nucleated RBC % 0 Differential Comment SCANNED Hypochromasia RARE Sodium 137 Potassium 4.1 Chloride 100 Carbon Dioxide 31.0 Anion Gap 6 BUN 34 H Creatinine 1.23 Estim Creat Clear Calc 82.33 Est GFR (MDRD) Af Amer 78 Est GFR (MDRD) Non-Af 65 BUN/Creatinine Ratio 27.6 H Glucose 145 H Calcium 9.9 Vancomycin Trough 28.9 H Micro: Microbiology 06/07/21 12:02 Sputum, Expectorated/Coughed Gram Stain - Final 06/07/21 12:02 Sputum, Expectorated/Coughed Respiratory Culture - Preliminary Presumptive C albicans 06/05/21 15:00 Blood Culture (Wb) - Right Wrist Blood Culture - Preliminary No growth in 48 hours. 06/05/21 14:37 Blood Culture (Wb) - Port Blood Culture - Preliminary No growth in 48 hours. 06/05/21 21:30 Urine, Clean Catch Legionella Antigen - Final 06/05/21 21:30 Urine, Clean Catch Streptococcus pneumoniae Antigen (M - Final Cardiology Labs/Tests 06/09/21 04:41: WBC 13.3 H, RBC 3.40 L, Hgb 9.5 L, Hct 31.6 L, MCV 92.9, MCH 27.9, MCHC 30.1 L, Plt Count 395, MPV 10.1, Immature Gran % (Auto) 0.700, Neut % (Auto) 92.4 H, Lymph % (Auto) 4.5 L, [place] % (Auto) 2.3, Eos % (Auto) 0.0, Baso % (Auto) 0.1, Absolute Neuts (auto) 12.3 H, Nucleated RBC % 0 06/09/21 04:41: Sodium 137, Potassium 4.1, Chloride 100, Carbon Dioxide 31.0, Anion Gap 6, BUN 34 H, Creatinine 1.23, Est GFR (MDRD) Af Amer 78, Est GFR ( MDRD) Non-Af 65, BUN/Creatinine Ratio 27.6 H, Glucose 145 H, Calcium 9.9 Rhythm: EKG: ECHO: Stress Test: Cardiac Cath: PCI: CT Surgery: Holter monitor: EPS: PPM: CXR: Chest CT Scan: Physical Exam Const oriented x3 and healthy appearing Orientation / Consciousness: awake HEENT normocephalic Eyes PERRL and conjunctivae normal Neck supple, no JVD and no carotid bruits Chest inspection of chest normal Resp normal respiratory effort and clear to auscultation bilaterally Cardio Palpation: normal PMI Rate: regular rate Rhythm: abnormal rhythm irregularly irregular Heart Sounds: S1 normal and S2 normal Peripheral Pulses: pulses 2+ throughout GI normal to inspection, nondistended, normoactive bowel sounds Extremity normal to inspection and no clubbing, cyanosis or edema Psych mental status grossly normal Assessment & Plan Assessment/Plan (1) Atrial fibrillation with rapid ventricular response: PLAN: He does have a known history of atrial fibrillation with a controlled ventricular response rate. He has failed DC cardioversion previously and has been relegated to rate control and anticoagulation. I would recommend that he continue with his anticoagulation regimen at this time. He has started on the beta-rashi and is tolerating it together with the oral amiodarone for rate control. (2) Dyspnea: QUALIFIERS: Dyspnea type: dyspnea on exertion Qualified Code(s): R06.00 - Dyspnea, unspecified PLAN: He does have dyspnea which appears to be mild diastolic dysfunction, and congestive heart failure. I would recommend a regimen of diuresis as he improves from his lung condition. His echocardiogram demonstrated preserved ejection fraction. * He appears to be improving with respect to the above and is talking in full sentences. (3) Essential (primary) hypertension: PLAN: His blood pressure appears to be stable at this time I would not recommend that we make any major changes. Thank you for allowing me to participate in the care of your patient. Please don't hesitate to call if any issues arise.
--- NOTE | 2021-06-09 11:36 | PN.HOSP_ITS ---
Documented by User: Cosmo PACK 06/09/21 11:50 Subjective Subjective Patient is a 55-year-old male comfortably resting in bed, alert and orient x3. Patient reports no change or progression in symptoms from yesterday. Denies chest pain, shortness of breath, palpitations, hemoptysis, sputum production, fe pernell, chills, N/V/D. Objective Data Objective Data Vital Signs: Vital Signs Temp Pulse Resp BP Pulse Ox 98.1 F 109 H 21 H 128/69 H 95 06/09/21 08:46 06/09/21 11:28 06/09/21 11:28 06/09/21 09:12 06/09/21 08:46 Oxygen Flow Rate (L/min) 12 Oxygen Delivery Method Nasal Cannula Weight: 275 lb 0.003 oz Body Mass Index (BMI) 33.5 Intake & Output: Intake and Output for Last 24 Hours 06/07/21 06/08/21 06/09/21 23:59 23:59 23:59 Intake Total 1820.25 / 1820.25 2850 / 3150 700 / 700 Output Total 1600 / 1600 925 / 1825 900 / 900 Balance 220.25 / 220.25 1925 / 1325 -200 / -200 Lab / Micro Data Result Diagrams: 06/09/21 04:41 06/09/21 04:41 Labs: Laboratory Results - last 24 hr 06/08/21 06/09/21 06/09/21 20:24 04:41 04:41 WBC 13.3 H RBC 3.40 L Hgb 9.5 L Hct 31.6 L MCV 92.9 MCH 27.9 MCHC 30.1 L RDW Std Deviation 54.4 H RDW Coeff of Benjamin 15.9 H Plt Count 395 MPV 10.1 Immature Gran % (Auto) 0.700 Neut % (Auto) 92.4 H Lymph % (Auto) 4.5 L [place] % (Auto) 2.3 Eos % (Auto) 0.0 Baso % (Auto) 0.1 Absolute Neuts (auto) 12.3 H Absolute Lymphs (auto) 0.60 L Nucleated RBC % 0 Differential Comment SCANNED Hypochromasia RARE Sodium 137 Potassium 4.1 Chloride 100 Carbon Dioxide 31.0 Anion Gap 6 BUN 34 H Creatinine 1.23 Estim Creat Clear Calc 82.33 Est GFR (MDRD) Af Amer 78 Est GFR (MDRD) Non-Af 65 BUN/Creatinine Ratio 27.6 H Glucose 145 H Calcium 9.9 Vancomycin Trough 28.9 H Micro: Microbiology 06/07/21 12:02 Sputum, Expectorated/Coughed Gram Stain - Final 06/07/21 12:02 Sputum, Expectorated/Coughed Respiratory Culture - Preliminary Presumptive C albicans 06/05/21 15:00 Blood Culture (Wb) - Right Wrist Blood Culture - Preliminary No growth in 48 hours. 06/05/21 14:37 Blood Culture (Wb) - Port Blood Culture - Preliminary No growth in 48 hours. 06/05/21 21:30 Urine, Clean Catch Legionella Antigen - Final 06/05/21 21:30 Urine, Clean Catch Streptococcus pneumoniae Antigen (M - Final Physical Exam Const alert, oriented x3 and no apparent distress HEENT head/scalp atraumatic and moist oral mucous membranes Head and Scalp: normocephalic Eyes EOMs intact bilaterally and conjunctivae normal Neck no lymphadenopathy, supple and no JVD Resp normal respiratory effort and no retractions Effort and Inspection: labored Auscultation: diminished lung sounds Cardio regular rate, regular rhythm, no murmurs and no JVD GI normal to inspection, nondistended, normoactive bowel sounds, soft to palpation and non-tender Extremity normal to inspection, full ROM and no clubbing, cyanosis or edema Skin no rashes or lesions noted, no wounds and skin turgor normal Neuro CN's II-XII intact bilaterally Psych affect normal Assessment & Plan Assessment/Plan (1) Pneumonia: QUALIFIERS: Laterality: bilateral Lung location: unspecified part of lung Pneumonia type: due to unspecified organism Qualified Code(s): J18.9 - Pneumonia, unspecified organism (2) Acute respiratory failure with hypoxia: (3) Respiratory failure: QUALIFIERS: Chronicity: acute Respiratory failure complication: hypoxia Qualified Code(s): J96.01 - Acute respiratory failure with hypoxia (4) Small cell lung cancer, right upper lobe: (5) Atrial fibrillation with rapid ventricular response: (6) Essential (primary) hypertension: (7) Hyperlipidemia: QUALIFIERS: Hyperlipidemia type: unspecified Qualified Code(s): E78.5 - Hyperlipidemia, unspecified PLAN: Day 5: See subjective for patient presentation. Discharge planning: Patient remained admitted overnight for possible thoracentesis on Sunday 06/10, however desires to return home upon discharge. 1) Dyspnea, suspect secondary to CHF vs Pneumonia vs Radiation pneumonitis . Vital signs stable and patient is afebrile. currently satting 95% on 12 L/min via NC. WBC's is mildly elevated at 13,000, however could be the result of ongoing Steroid treatments. Sputum cultures demonstrates presumptive C. Albicans, not concerning. Blood cultures demonstrate no growth. Legionella and strep pneumo urinary antigen is negative. ECHO 06/06; normal LV function and size, an estimated EF of 55%. Plan; continue empiric vancomycin and Zosyn until culutres return, continue furosemide 40 mg IV twice daily, continue Arava and B iPAP, hold home Xarelto for possible thoracentesis on 06/10, continue Solu Medrol. 2) A. Fib w/ RVR Patient already anticoagulated on Xarelto. Patient has been intiiated on Metoprolol 50 milligrams p.o. twice daily and amiodarone 200 mg p.o. twice daily for rate and rhythm control per cardiology. 3) Acute hypoxic respiratory insufficiency Hypoxic on admission. Plan; as above. 4) Lung cancer, metastatic small cell Stage IIIb, follow with oncology as an oupatient. DVT Prophylaxis - Hold home Xarelto as above. Patient seen by Cosmo Mane PA-C, under the supervision of Dr. Broussard. Documented by User: Dr. Fredi Broussard, 06/09/21 12:29 Subjective Subjective breathing better. tolerating NC Objective Data Lab / Micro Data Result Diagrams: 06/09/21 04:41 06/09/21 04:41 Physical Exam Const alert Eyes PERRL Resp normal respiratory effort, no retractions, no use of accessory muscles and clear to auscultation bilaterally Cardio regular rate, regular rhythm, S1 normal heart sound and S2 normal heart sound GI normal to inspection, nondistended, normoactive bowel sounds, soft to palpation, non-tender and non-distended Extremity no clubbing, cyanosis or edema Assessment & Plan Assessment/Plan (1) Acute respiratory failure with hypoxia: PLAN: 1. Pneumonia ruled out Cultures negative (C. albicans likely contaminant) DC abx urinary antigens for Streptococcus and Legionella negative Follow-up COVID-19 testing. Patient has been vaccinated for COVID-19 but certainly is immunocompromise and could be resistant susceptible to recurrent or new delta variance. Pulmonary toilet Patient does not have a white count nor fever at this time but was having fever apparently as outpatient. Other possibilities could be ARDS versus COVID-19 versus CHF versus radiation pneumonitis. Patient echo June 2020 where his EF was 60% at that time Add furosemide 2. A. fib with RVR improved Exacerbated due to the underlying pulmonary process Not on any rate controlling medication at baseline amiodarone Patient already anticoagulated on rivaroxaban 3. Acute hypoxic respiratory failure improving 2/2 lung cancer, pleural effusion, GGO Wean oxygen as tolerated Pulm consult: concerning for pneumonitis, possibly immunotherpay-induced. Started on methylpred. plan for thoracentesis 06/10. rivaroxaban currently held for this 4. Lung cancer, metastatic small cell Stage IIIb Complicates overall care and recovery Follow-up with oncology 5. VTE prophylaxis: SCDs Charges/Coding Visit Charges Inpatient E&M: 46147 Subs Hosp L2
[2021-06-09] MEDS: Pravastatin 40 MG Tablet PO (16:59)
[2021-06-10] VITALS (22 sets, daily range): BP systolic 109–141; BP diastolic 61–84; PULSE 63–98; RESP 14–24; TEMP 35.6–36.5; O2SAT 89–100
--- NOTE | 2021-06-10 | FLU_PTH ---
PATIENT: RONALDO ADAM LOC: [facility] U#:[id number] AGE/SX: 55/M ROOM: [facility] RE06/05/[address]: Dr. Gayle Dallas MD : 1965 BED: 1 DIS: 06/14/2021 SPEC #: [id number] RECD: 06/10/21 14:24 STATUS: WALE RE #: [id number] WILFREDO: 06/10/21 00:[address]: Gayle Dallas DEPT: CYTOLOGY RECD BY: Yo Guaman ENTERED: 06/11/21 08:18 SP TYPE: Fluid OTHR DR: MD Dr. Regan Geller MD Dr. Derek Brown, DO Dr. Eric Jopperi, DO Dr. Efewongbe Oleghe, MD Dr. Mansour Isckarus, MD Christina Muller, [employer]ING [employer]ER-C Tissues: THORACIC FLUID Procedures: Special Stain Group II Surgery Specimen Level IV Cytospin Fluid HEADER OPERATION: Thoracentesis PRE-OP DIAGNOSIS: Pleural effusion TISSUE SUBMITTED: Right thoracentesis fluid for cytology DIAGNOSIS CYTOLOGY Right thoracentesis fluid for cytology (cytospin and cell block): Negative for malignant cells. See comment. SUMAN:terra 06/12/2021 COMMENT The specimen is bloody and paucicellular. Clinical correlation and appropriate follow up are necessary. Please make reference to previous specimens ([id number]) transbronchial needle aspiration, EBUS, site 7 with diagnosis of small cell carcinoma of lung origin and ([id number]) EBUS, site 7 with diagnosis of malignant cells present derived from small cell carcinoma. CYTOLOGY STUDY Slides are reviewed. CYTOLOGY GROSS Received is 6 ml of bloody fluid labeled with the patient's name and and designated per the requisition as thoracentesis. Submitted for cytology preparation including cell block. / terra 06/11/2021 TC:5 CPT: 50962, 19970
[2021-06-10 06:40] LABS: Absolute Lymphocyte Count 0.65 X10^3/uL (0.83-4.51); Absolute Neutrophil Count 10.6 X10^3/uL (2.0-7.7); Basophil# 0.01 X10^3/uL; Basophil% 0.1 % (0-1); Hematocrit 32.8 % (40-54); Hemoglobin 9.9 g/dL (13.0-16.5); Lymphocyte # 0.65 X10^3/ul (0.83-4.51); Lymphocyte % 5.6 % (19-41); Mean Corp Hgb Conc 30.2 g/dL (32-36); Mean Corpuscular Hgb 27.6 pg (27.0-32.0); Mean Corpuscular Volume 91.4 fL (80-94); Mean Platelet Vol. 9.9 fl (6.2-12.0); Monocyte# 0.33 X10^3/uL; Monocyte% 2.8 % (0-10); NRBC Flagged by Analyzer 0 % (0-5); Neutrophil # 10.63 X10^3/uL (2.7-7.7); Neutrophil % 90.8 % (47-70); Platelet Count 415 K/mm3 (150-450); RBC Distribution Width CV 16.1 % (11.6-14.6); RBC Distribution Width SD 54.3 fl (35.1-43.9); Red Blood Count 3.59 M/mm3 (4.6-6.2); White Blood Count 11.7 K/mm3 (4.4-11.0)
--- NOTE | 2021-06-10 06:46 | US_ITS ---
PROCEDURE: ULTRASOUND GUIDED THORACENTESIS. DATE: 06/10/2021.. INDICATION: Male, 55 years old. Right pleural effusion. PHYSICIAN: Melquiades Stallings M.D. PROCEDURE: The risks, benefits, and alternatives to the procedure were explained to the patient. The specific risks of bleeding, infection, and pneumothorax requiring chest tube insertion were discussed and accepted. Written informed consent was obtained. Ultrasonographic evaluation of the right lower pleural space was carried out. A small pocket was identified. The patient was placed in the sitting, upright position. The overlying skin was prepped and draped in sterile fashion. 1% lidocaine was administered subcutaneously for local anesthesia. Under ultrasound guidance, a 5 [place]ic thoracentesis needle/catheter system was advanced into the right posterior lower pleural fluid collection. Approximately 10 mL of bloody fluid was drained. The catheter was removed, and a sterile dressing was applied. A specimen was collected and sent to the laboratory for analysis, as requested by the referring clinician. The patient tolerated the procedure well. A chest x-ray was ordered. US/Thoracentesis W US IMPRESSION: Ultrasound-guided right thoracentesis. Electronically Signed: Melquiades Stallings MD at 14:24 EDT , Service support ,
--- NOTE | 2021-06-10 06:48 | PN.HOSP_ITS ---
Objective Data Objective Data Vital Signs: Vital Signs Temp Pulse Resp BP Pulse Ox 96.1 F L 81 18 141/84 H 93 06/10/21 03:23 06/10/21 03:23 06/10/21 03:23 06/10/21 03:23 06/10/21 04:39 Oxygen Flow Rate (L/min) 12 Oxygen Delivery Method Nasal Cannula Weight: 275 lb 0.003 oz Body Mass Index (BMI) 33.5 Intake & Output: Intake and Output for Last 24 Hours 06/08/21 06/09/21 06/10/21 23:59 23:59 23:59 Intake Total 2850 / 3150 2850 / 3250 900 / 900 Output Total 925 / 1825 2650 / 3500 1500 / 1500 Balance 1925 / 1325 200 / -250 -600 / -600 Lab / Micro Data Result Diagrams: 06/10/21 06:29 06/09/21 04:41 Labs: Laboratory Results - last 24 hr 06/09/21 04:41: Differential Comment SCANNED, Hypochromasia RARE 06/10/21 06:29: WBC 11.7 H, RBC 3.59 L, Hgb 9.9 L, Hct 32.8 L, MCV 91.4, MCH 27 .6, MCHC 30.2 L, RDW Std Deviation 54.3 H, RDW Coeff of Benjamin 16.1 H, Plt Count 415, MPV 9.9, Immature Gran % (Auto) 0.700, Neut % (Auto) 90.8 H, Lymph % (Auto) 5.6 L, [place] % (Auto) 2.8, Eos % (Auto) 0.0, Baso % (Auto) 0.1, Absolute Neuts (auto) 10.6 H, Absolute Lymphs (auto) 0.65 L, Nucleated RBC % 0 Micro: Microbiology 06/07/21 12:02 Sputum, Expectorated/Coughed Gram Stain - Final 06/07/21 12:02 Sputum, Expectorated/Coughed Respiratory Culture - Preliminary Presumptive C albicans 06/05/21 15:00 Blood Culture (Wb) - Right Wrist Blood Culture - Preliminary No growth in 48 hours. 06/05/21 14:37 Blood Culture (Wb) - Port Blood Culture - Preliminary No growth in 48 hours. 06/05/21 21:30 Urine, Clean Catch Legionella Antigen - Final 06/05/21 21:30 Urine, Clean Catch Streptococcus pneumoniae Antigen (M - Final
[2021-06-10 07:07] LABS: Anion Gap 4 (5-15); BUN 37 mg/dL (7-18); BUN/Creat Ratio 31.9 RATIO (10-20); Calcium,Total 10.3 mg/dL (8.5-10.1); Chloride 100 mmol/L (98-107); Creatinine, Serum 1.16 mg/dL (0.70-1.30); EST Glomerular Filtration Rate 69 mL/min (>60); Est Glom Filt Rate - Afr Amer 84 mL/min (>60); Glucose 126 mg/dL (74-106); Sodium Level 138 mmol/L (136-145)
--- NOTE | 2021-06-10 07:10 | PCM.PN.INT ---
Assessment & Plan Assessment/Plan (1) Acute respiratory failure with hypoxia: PLAN: RECOMMENDATIONS: 1. Continue to wean supplemental oxygen as tolerated. 2. Continue IV steroids. 3. Consider dose de-escalation of Lasix given elevated bicarbonate. 4. Obtain repeat chest x-ray and if pleural effusion is still present, consider ultrasound-guided thoracentesis. 5. Encourage incentive spirometer use and mobilize patient as tolerated. 6. Continue noninvasive positive pressure ventilatory support as needed. IMPRESSIONS: 1. Acute hypoxemic respiratory failure Clinical concern for multifactorial etiology, including atrial fibrillation with RVR, congestive heart failure and possible medication induced pneumonitis. In addition, the patient's cancer immunotherapy has also been associated with pleural effusion formation. The patient is currently being treated with Tecentriq, which has been known to cause pneumonitis. It is reasonable to continue IV steroid therapy accordingly. Given that his bicarbonate has increased, may wish to consider de-escalation in Lasix regimen. Continue to wean supplemental oxygen as tolerated to maintain saturations at or above 90%. I would also recommend obtaining repeat chest imaging and considering ultrasound-guided thoracentesis, if feasible. Encourage incentive spirometer use and mobilize patient as tolerated. 2. History of atrial fibrillation with RVR/chronic heart failure with preserved ejection fraction The patient was noted to be in atrial fibrillation with RVR on presentation, but is currently rate controlled. Cardiology is currently following. Continue current medical management. 3. History of small cell lung cancer The patient is currently on treatment with atezolizumab. The findings noted on his chest imaging, including the pleural effusion may be secondary to the aforementioned medication. Recommend continuing steroid therapy as ordered. The patient's primary oncology team should be made aware that this is a clinical concern. 4. Obesity/hypertension/hyperlipidemia/anxiety/depression Complicates care, management, recovery and prognosis. Continue home medications as indicated. This note was generated with [employer] dictation software. It may contain incorrect words, spelling, and punctuation that were not noted in checking the note before signing. Subjective Subjective The patient was seen and examined at the bedside this morning. Events from the last 24 hours have been reviewed. The patient is currently afebrile, hemodynamically stable and maintaining appropriate oxygen saturations on 12 L/min via nasal cannula. The patient is currently documented to be overall net +2.9 L for the hospital admission. Serum bicarbonate was elevated to 34 this morning. Objective Data Objective Data The patient's most recent lab work, culture data and imaging studies have all been personally reviewed. Surface echocardiogram revealed normal LV size and function with an ejection fraction of 55%. Coronavirus PCR was negative. Blood, urine and sputum cultures are pending. Vital Signs: Vital Signs Temp Pulse Resp BP Pulse Ox 96.1 F L 81 18 141/84 H 93 06/10/21 03:23 06/10/21 03:23 06/10/21 03:23 06/10/21 03:23 06/10/21 04:39 Oxygen Flow Rate (L/min) 12 Oxygen Delivery Method Nasal Cannula Weight: 275 lb 0.003 oz Body Mass Index (BMI) 33.5 Intake & Output: Intake and Output for Last 24 Hours 06/08/21 06/09/21 06/10/21 23:59 23:59 23:59 Intake Total 2850 / 3150 2850 / 3250 900 / 900 Output Total 925 / 1825 2650 / 3500 1500 / 1500 Balance 1925 / 1325 200 / -250 -600 / -600 Lab / Micro Data Attestation: I reviewed the patient's lab results. Result Diagrams: 06/11/21 05:42 06/11/21 05:42 Labs: Laboratory Results - last 24 hr 06/10/21 06:29: WBC 11.7 H, RBC 3.59 L, Hgb 9.9 L, Hct 32.8 L, MCV 91.4, MCH 27.6, MCHC 30.2 L, RDW Std Deviation 54.3 H, RDW Coeff of Benjamin 16.1 H, Plt Count 415, MPV 9.9, Immature Gran % (Auto) 0.700, Neut % (Auto) 90.8 H, Lymph % (Auto) 5.6 L, [place] % (Auto) 2.8, Eos % (Auto) 0.0, Baso % (Auto) 0.1, Absolute Neuts (auto) 10.6 H, Absolute Lymphs (auto) 0.65 L, Nucleated RBC % 0 06/10/21 06:29: Sodium 138, Potassium 4.0, Chloride 100, Carbon Dioxide 34.0 H, Anion Gap 4 L, BUN 37 H, Creatinine 1.16, Estim Creat Clear Calc 87.30, Est GFR (MDRD) Af Amer 84, Est GFR (MDRD) Non-Af 69, BUN/Creatinine Ratio 31.9 H, Glucose 126 H, Calcium 10.3 H Micro: Microbiology 06/07/21 12:02 Sputum, Expectorated/Coughed Gram Stain - Final 06/07/21 12:02 Sputum, Expectorated/Coughed Respiratory Culture - Preliminary Presumptive C albicans 06/05/21 15:00 Blood Culture (Wb) - Right Wrist Blood Culture - Preliminary No growth in 48 hours. 06/05/21 14:37 Blood Culture (Wb) - Port Blood Culture - Preliminary No growth in 48 hours. 06/05/21 21:30 Urine, Clean Catch Legionella Antigen - Final 06/05/21 21:30 Urine, Clean Catch Streptococcus pneumoniae Antigen (M - Final Physical Exam Const alert and no apparent distress General Appearance: cooperative HEENT normocephalic and head/scalp atraumatic Eyes PERRL, EOMs intact bilaterally and conjunctivae normal Neck supple General: trachea midline Resp no use of accessory muscles Auscultation: diminished lung sounds; Negative for rales, rhonchi or wheezes Cardio regular rate and regular rhythm GI normal to inspection, nondistended, normoactive bowel sounds Extremity no clubbing, cyanosis or edema Skin no rashes or lesions noted Neuro CN's II-XII intact bilaterally and moves all extremities Psych cooperative and affect normal Charges/Coding Visit Charges Inpatient E&M: 09656 Subs Hosp L3
[2021-06-10 07:15] LABS: ALB/GLOB Ratio 0.4 RATIO (0.9-2.4); LDH 234 U/L (87-241); Protein, Total 7.2 g/dL (6.4-8.2)
[2021-06-10] MEDS: Ipratropium/Albuterol Sulfate 3 ML AMPUL.NEB INHALATION ×4 (07:27→19:29)
--- NOTE | 2021-06-10 07:56 | PN.CARD_ITS ---
Subjective Subjective Patient seen and evaluated. Appears to be doing much better this morning. Still in atrial fibrillation with a controlled rate. Objective Data Vital Signs: Vital Signs Temp Pulse Resp BP Pulse Ox 96.1 F L 73 18 141/84 H 93 06/10/21 03:23 06/10/21 07:00 06/10/21 03:23 06/10/21 03:23 06/10/21 04:39 Oxygen Flow Rate (L/min) 12 Oxygen Delivery Method Nasal Cannula Weight: 275 lb 0.003 oz Body Mass Index (BMI) 33.5 Intake & Output: Intake and Output for Last 24 Hours 06/08/21 06/09/21 06/10/21 23:59 23:59 23:59 Intake Total 2850 / 3150 2850 / 3250 900 / 900 Output Total 925 / 1825 2650 / 3500 1500 / 1500 Balance 1925 / 1325 200 / -250 -600 / -600 Lab / Micro Data Result Diagrams: 06/10/21 06:29 06/10/21 06:29 Labs: Laboratory Results - last 24 hr 06/10/21 06:29: WBC 11.7 H, RBC 3.59 L, Hgb 9.9 L, Hct 32.8 L, MCV 91.4, MCH 27.6, MCHC 30.2 L, RDW Std Deviation 54.3 H, RDW Coeff of Benjamin 16.1 H, Plt Count 415, MPV 9.9, Immature Gran % (Auto) 0.700, Neut % (Auto) 90.8 H, Lymph % (Auto) 5.6 L, [place] % (Auto) 2.8, Eos % (Auto) 0.0, Baso % (Auto) 0.1, Absolute Neuts (auto) 10.6 H, Absolute Lymphs (auto) 0.65 L, Nucleated RBC % 0 06/10/21 06:29: Sodium 138, Potassium 4.0, Chloride 100, Carbon Dioxide 34.0 H, Anion Gap 4 L, BUN 37 H, Creatinine 1.16, Estim Creat Clear Calc 87.30, Est GFR (MDRD) Af Amer 84, Est GFR (MDRD) Non-Af 69, BUN/Creatinine Ratio 31.9 H, Glucose 126 H, Calcium 10.3 H 06/10/21 06:29: Lactate Dehydrogenase 234, Total Protein 7.2, Globulin 5.0 H, Albumin/Globulin Ratio 0.4 L Micro: Microbiology 06/07/21 12:02 Sputum, Expectorated/Coughed Gram Stain - Final 06/07/21 12:02 Sputum, Expectorated/Coughed Respiratory Culture - Preliminary Presumptive C albicans Cardiology Labs/Tests 06/10/21 06:29: WBC 11.7 H, RBC 3.59 L, Hgb 9.9 L, Hct 32.8 L, MCV 91.4, MCH 27.6, MCHC 30.2 L, Plt Count 415, MPV 9.9, Immature Gran % (Auto) 0.700, Neut % (Auto) 90.8 H, Lymph % (Auto) 5.6 L, [place] % (Auto) 2.8, Eos % (Auto) 0.0, Baso % (Auto) 0.1, Absolute Neuts (auto) 10.6 H, Nucleated RBC % 0 06/10/21 06:29: Sodium 138, Potassium 4.0, Chloride 100, Carbon Dioxide 34.0 H, Anion Gap 4 L, BUN 37 H, Creatinine 1.16, Est GFR (MDRD) Af Amer 84, Est GFR (MDRD) Non-Af 69, BUN/Creatinine Ratio 31.9 H, Glucose 126 H, Calcium 10.3 H Rhythm: EKG: ECHO: Stress Test: Cardiac Cath: PCI: CT Surgery: Holter monitor: EPS: PPM: CXR: Chest CT Scan: Physical Exam Const oriented x3 and healthy appearing Orientation / Consciousness: awake HEENT normocephalic Eyes PERRL and conjunctivae normal Neck supple, no JVD and no carotid bruits Chest inspection of chest normal Resp normal respiratory effort and clear to auscultation bilaterally Cardio Palpation: normal PMI Rate: regular rate Rhythm: regular rhythm Heart Sounds: S1 normal and S2 normal Peripheral Pulses: pulses 2+ throughout GI normal to inspection, nondistended, normoactive bowel sounds Extremity normal to inspection and no clubbing, cyanosis or edema Psych mental status grossly normal Assessment & Plan Assessment/Plan (1) Atrial fibrillation with rapid ventricular response: PLAN: He does have a known history of atrial fibrillation with a controlled ventricular response rate. He has failed DC cardioversion previously and has been relegated to rate control and anticoagulation. I would recommend that he continue with his anticoagulation regimen at this time. He has started on the beta-rashi and is tolerating it together with the oral amiodarone for rate control. (2) Dyspnea: QUALIFIERS: Dyspnea type: dyspnea on exertion Qualified Code(s): R06.00 - Dyspnea, unspecified PLAN: He does have dyspnea which appears to be mild diastolic dysfunction, and congestive heart failure. I would recommend a regimen of diuresis as he improves from his lung condition. His echocardiogram demonstrated preserved ejection fraction. * He appears to be improving with respect to the above and is talking in full sentences. * To be helpful to obtain a chest x-ray to reevaluate his lungs. (3) Essential (primary) hypertension: PLAN: His blood pressure appears to be stable at this time I would not recommend that we make any major changes. Thank you for allowing me to participate in the care of your patient. Please don't hesitate to call if any issues arise.
[2021-06-10 07:59] LABS: International Normalized Ratio 1.2; Prothrombin Time (Protime)PT. 14.3 SECONDS (11.7-14.9)
[2021-06-10 08:32] LABS: Partial Thromboplast Time 27.5 Seconds (24.1-36.2)
[2021-06-10] MEDS: Doxazosin 1 MG Tablet 2 MG PO (09:09)
[2021-06-10] MEDS: Amiodarone 200 MG Tablet PO ×2 (09:09→20:31)
[2021-06-10] MEDS: Furosemide 40 MG/4 ML Vial IV (09:10)
[2021-06-10] MEDS: FLUoxetine 20 MG Capsule 60 MG PO (09:10)
[2021-06-10] MEDS: Metoprolol Tartrate 50 MG Tablet PO ×2 (09:10→20:31)
[2021-06-10] MEDS: Acetaminophen 325 MG Tablet 650 MG PO (10:43)
[2021-06-10] MEDS: 0.9% Saline Lock 10 ML Syringe IV ×3 (11:41→23:16)
--- NOTE | 2021-06-10 11:45 | PCM.PN.HOSP ---
Documented by User: Cosmo PACK 06/10/21 11:52 Subjective Subjective Patient is a 55-year-old male comfortably resting in bed, alert and oriented x3. Denies chest pain, shortness of breath, palpitations, hemoptysis, sputum production, fever, chills, N/V/D. Objective Data Objective Data Vital Signs: Vital Signs Temp Pulse Resp BP Pulse Ox 97.2 F L 83 18 124/61 H 91 06/10/21 10:00 06/10/21 11:09 06/10/21 10:00 06/10/21 10:00 06/10/21 10:00 Oxygen Flow Rate (L/min) 12 Oxygen Delivery Method Nasal Cannula Weight: 275 lb 0.003 oz Body Mass Index (BMI) 33.5 Intake & Output: Intake and Output for Last 24 Hours 06/08/21 06/09/21 06/10/21 23:59 23:59 23:59 Intake Total 2850 / 3150 2850 / 3250 1620 / 1620 Output Total 925 / 1825 2650 / 3500 1800 / 1800 Balance 1925 / 1325 200 / -250 -180 / -180 Lab / Micro Data Result Diagrams: 06/10/21 06:29 06/10/21 06:29 Labs: Laboratory Results - last 24 hr 06/10/21 06:29: WBC 11.7 H, RBC 3.59 L, Hgb 9.9 L, Hct 32.8 L, MCV 91.4, MCH 27.6, MCHC 30.2 L, RDW Std Deviation 54.3 H, RDW Coeff of Benjamin 16.1 H, Plt Count 415, MPV 9.9, Immature Gran % (Auto) 0.700, Neut % (Auto) 90.8 H, Lymph % (Auto) 5.6 L, [place] % (Auto) 2.8, Eos % (Auto) 0.0, Baso % (Auto) 0.1, Absolute Neuts (auto) 10.6 H, Absolute Lymphs (auto) 0.65 L, Nucleated RBC % 0 06/10/21 06:29: Sodium 138, Potassium 4.0, Chloride 100, Carbon Dioxide 34.0 H, Anion Gap 4 L, BUN 37 H, Creatinine 1.16, Estim Creat Clear Calc 87.30, Est GFR (MDRD) Af Amer 84, Est GFR (MDRD) Non-Af 69, BUN/Creatinine Ratio 31.9 H, Glucose 126 H, Calcium 10.3 H 06/10/21 06:29: Lactate Dehydrogenase 234, Total Protein 7.2, Globulin 5.0 H, Albumin/Globulin Ratio 0.4 L 06/10/21 07:16: PT 14.3, INR 1.2, APTT 27.5 Micro: Microbiology 06/07/21 12:02 Sputum, Expectorated/Coughed Gram Stain - Final 06/07/21 12:02 Sputum, Expectorated/Coughed Respiratory Culture - Preliminary Presumptive C albicans 06/05/21 15:00 Blood Culture (Wb) - Right Wrist Blood Culture - Preliminary No growth in 48 hours. 06/05/21 14:37 Blood Culture (Wb) - Port Blood Culture - Preliminary No growth in 48 hours. 06/05/21 21:30 Urine, Clean Catch Legionella Antigen - Final 06/05/21 21:30 Urine, Clean Catch Streptococcus pneumoniae Antigen (M - Final Physical Exam Const alert, oriented x3 and no apparent distress HEENT head/scalp atraumatic, moist oral mucous membranes and oropharynx normal Head and Scalp: normocephalic Eyes PERRL, EOMs intact bilaterally and conjunctivae normal Neck no lymphadenopathy, supple and no JVD Resp normal respiratory effort, no retractions and no use of accessory muscles Auscultation: diminished lung sounds Cardio regular rate, regular rhythm, no murmurs and no JVD GI normal to inspection, nondistended, normoactive bowel sounds, soft to palpation and non-tender Extremity normal to inspection, full ROM and no clubbing, cyanosis or edema Skin no rashes or lesions noted, no wounds, skin turgor normal and no jaundice Neuro CN's II-XII intact bilaterally Psych affect normal Assessment & Plan Assessment/Plan (1) Pneumonia: QUALIFIERS: Laterality: bilateral Lung location: unspecified part of lung Pneumonia type: due to unspecified organism Qualified Code(s): J18.9 - Pneumonia, unspecified organism (2) Respiratory failure: QUALIFIERS: Chronicity: acute Respiratory failure complication: hypoxia Qualified Code(s): J96.01 - Acute respiratory failure with hypoxia (3) Acute respiratory failure with hypoxia: (4) Small cell lung cancer, right upper lobe: (5) Atrial fibrillation with rapid ventricular response: (6) Essential (primary) hypertension: (7) Hyperlipidemia: QUALIFIERS: Hyperlipidemia type: unspecified Qualified Code(s): E78.5 - Hyperlipidemia, unspecified PLAN: Day 5: See subjective for patient presentation. Discharge planning: Patient to return home upon discharge. 1) Dyspnea, suspect secondary to CHF vs Pneumonia vs Radiation pneumonitis . Vital signs stable and patient is afebrile. currently satting 95% on 12 L/min via NC. WBC's is mildly elevated at 13,000, however could be the result of ongoing Steroid treatments. Sputum cultures demonstrates presumptive C. Albicans, not concerning. Blood cultures demonstrate no growth. Legionella and strep pneumo urinary antigen is negative. Antibiotics discontinued. ECHO 06/06; normal LV function and size, an estimated EF of 55%. Plan; continue furosemide 40 mg IV twice daily, continue Arava and BiPAP, hold home Xarelto for possible thoracentesis on 06/10, continue Solu Medrol, Thoracentesis scheduled for 06/10 @ 1330. 2) A. Fib w/ RVR Patient already anticoagulated on Xarelto. Patient has been intiiated on Metoprolol 50 milligrams p.o. twice daily and amiodarone 200 mg p.o. twice daily for rate and rhythm control per cardiology. 3) Acute hypoxic respiratory insufficiency Hypoxic on admission. Plan; as above. 4) Lung cancer, metastatic small cell Stage IIIb, follow with oncology as an oupatient. DVT Prophylaxis - Hold home Xarelto as above. Patient seen by Cosmo Mane PA-C, under the supervision of Dr. Dallas Documented by User: Dr. Gayle Dallas MD 06/10/21 14:30 Objective Data Lab / Micro Data Result Diagrams: 06/10/21 06:29 06/10/21 06:29
--- NOTE | 2021-06-10 14:00 | RAD_ITS ---
STUDY: X-RAY CHEST REASON FOR EXAM: Male, 55 years old. Post thora TECHNIQUE: AP inspiration and expiration views. COMPARISON: Comparison is made with prior study of 06/05/2021. FINDINGS: A left-sided portacatheter is seen with the tip in the right atrium. The patient is status post right thoracentesis. No evidence of pneumothorax. Stable examination. RAD/Chest Insp/Exp 2 View IMPRESSION: No evidence of pneumothorax on the immediate post right thoracocentesis examination. Electronically Signed: Melquiades Stallings MD at 14:27 EDT , Service support ,
[2021-06-10] MEDS: Lidocaine 2% (20 ml mdv) 20 ML Vial (14:22)
[2021-06-10 14:29] LABS: Cytology, Body Fluid / CSF SEE PATHOLOGY REPORT
[2021-06-10 16:11] LABS: Glucose, Body Fluid 111 mg/dL (40-70); LDH,Body Fluid 277 Units/l (Not Establ.); Protein, Body Fluid 6.5 g/dL (Not Establ.)
[2021-06-10] MEDS: Pravastatin 40 MG Tablet PO (16:55)
[2021-06-11] VITALS (16 sets, daily range): BP systolic 118–133; BP diastolic 70–89; PULSE 62–93; RESP 14–20; TEMP 36.4–36.9; O2SAT 93–98
[2021-06-11] MEDS: 0.9% Saline Lock 10 ML Syringe IV (05:29)
[2021-06-11 06:10] LABS: Absolute Neutrophil Count 9.4 X10^3/uL (2.0-7.7); Basophil# 0.01 X10^3/uL; Basophil% 0.1 % (0-1); Hematocrit 31.9 % (40-54); Hemoglobin 9.7 g/dL (13.0-16.5); Lymphocyte % 6.6 % (19-41); Mean Corp Hgb Conc 30.4 g/dL (32-36); Mean Corpuscular Volume 92.2 fL (80-94); Monocyte# 0.34 X10^3/uL; Monocyte% 3.2 % (0-10); NRBC Flagged by Analyzer 0 % (0-5); Neutrophil # 9.41 X10^3/uL (2.7-7.7); Neutrophil % 88.9 % (47-70); Platelet Count 417 K/mm3 (150-450); RBC Distribution Width SD 54.4 fl (35.1-43.9); Red Blood Count 3.46 M/mm3 (4.6-6.2); White Blood Count 10.6 K/mm3 (4.4-11.0)
[2021-06-11 06:55] LABS: ALB/GLOB Ratio 0.5 RATIO (0.9-2.4); AST(SGOT) 38 U/L (15-37); Alanine Aminotransfer ALT/SGPT 97 U/L (16-61); Albumin, Serum 2.2 g/dL (3.2-5.0); Alkaline Phosphatase 67 U/L (45-117); Anion Gap 5 (5-15); BUN 41 mg/dL (7-18); BUN/Creat Ratio 33.3 RATIO (10-20); Calcium,Total 10.3 mg/dL (8.5-10.1); Chloride 99 mmol/L (98-107); Creatinine, Serum 1.23 mg/dL (0.70-1.30); EST Glomerular Filtration Rate 65 mL/min (>60); Est Glom Filt Rate - Afr Amer 78 mL/min (>60); Estimated Creatinine Clearance 82.33 ml/min; Globulin 4.5 g/dL (2.2-4.2); Glucose 129 mg/dL (74-106); Potassium 3.6 mmol/L (3.5-5.1); Protein, Total 6.7 g/dL (6.4-8.2); Sodium Level 138 mmol/L (136-145)
[2021-06-11] MEDS: Ipratropium/Albuterol Sulfate 3 ML AMPUL.NEB INHALATION ×3 (07:12→19:58)
--- NOTE | 2021-06-11 07:28 | PCM.PN.INT ---
Assessment & Plan Assessment/Plan (1) Acute respiratory failure with hypoxia: PLAN: RECOMMENDATIONS: 1. Continue to wean supplemental oxygen as tolerated. 2. Continue IV steroids. 3. Continue gentle diuresis as tolerated by renal function. 4. Encourage incentive spirometer use and mobilize patient as tolerated. 5. Continue noninvasive positive pressure ventilatory support as needed. IMPRESSIONS: 1. Acute hypoxemic respiratory failure Clinical concern for multifactorial etiology, including atrial fibrillation with RVR, congestive heart failure and possible medication induced pneumonitis. The patient's cancer immunotherapy has also been associated with pleural effusion formation. The patient is currently being treated with Tecentriq, which has been known to cause pneumonitis. It is reasonable to continue IV steroid therapy accordingly. Continue to wean supplemental oxygen as tolerated to maintain saturations at or above 90%. Encourage incentive spirometer use and mobilize patient as tolerated. 2. History of atrial fibrillation with RVR/chronic heart failure with preserved ejection fraction The patient was noted to be in atrial fibrillation with RVR on presentation, but is currently rate controlled. Cardiology is currently following. Continue current medical management. 3. History of small cell lung cancer The patient is currently on treatment with atezolizumab. The findings noted on his chest imaging, including the pleural effusion may be secondary to the aforementioned medication. Recommend continuing steroid therapy as ordered. The patient's primary oncology team should be made aware that this is a clinical concern. 4. Obesity/hypertension/hyperlipidemia/anxiety/depression Complicates care, management, recovery and prognosis. Continue home medications as indicated. This note was generated with [employer] dictation software. It may contain incorrect words, spelling, and punctuation that were not noted in checking the note before signing. Subjective Subjective The patient was seen and examined at the bedside this morning. Events from the last 24 hours have been reviewed. The patient is currently afebrile, hemodynamically stable and maintaining appropriate oxygen saturations on 7 L/min via nasal cannula. The patient is currently documented to be overall net +2.3 L for the hospital admission. The patient does appear to be slowly improving from an oxygenation standpoint with time. Objective Data Objective Data The patient's most recent lab work, culture data and imaging studies have all been personally reviewed. Surface echocardiogram revealed normal LV size and function with an ejection fraction of 55%. Coronavirus PCR was negative. Blood, urine and sputum cultures are pending. Vital Signs: Vital Signs Temp Pulse Resp BP Pulse Ox 98.5 F 74 19 H 126/80 H 95 06/11/21 02:35 06/11/21 03:28 06/11/21 03:01 06/11/21 02:35 06/11/21 03:01 Oxygen Flow Rate (L/min) [1 ( 5 Initial Baseline)] Oxygen Flow Rate (L/min) 7 Oxygen Delivery Method [2] Room Air Oxygen Delivery Method [1 ( Nasal Cannula Initial Baseline)] Oxygen Delivery Method Nasal Cannula Weight: 275 lb 0.003 oz Body Mass Index (BMI) 33.5 Intake & Output: Intake and Output for Last 24 Hours 06/09/21 06/10/21 06/11/21 23:59 23:59 23:59 Intake Total 2850 / 3250 1979 / 1979 Output Total 2650 / 3500 2356 / 2631 900 / 900 Balance 200 / -250 -376 / -651 -900 / -900 Lab / Micro Data Attestation: I reviewed the patient's lab results. Result Diagrams: 06/11/21 05:42 06/11/21 05:42 Labs: Laboratory Results - last 24 hr 06/10/21 07:16: PT 14.3, INR 1.2, APTT 27.5 06/10/21 13:55: Fluid Glucose 111 H, Fluid Total Protein 6.5, Fluid LDH 277 06/10/21 13:55: Fluid pH Cancelled 06/10/21 13:55: Fluid Source Cancelled, Fluid Color Cancelled, Fluid Appearance Cancelled, Fluid WBC Cancelled, Fluid RBC Cancelled, Fluid Tot Cell Count Cancelled, Fld Polynuclear WBCs # Cancelled, Fld Polynuclear WBCs % Cancelled, Fluid Mononuclear WBCs Cancelled, Fld Mononuclear WBCs % Cancelled, Fluid Neutrophils Cancelled, Fluid Lymphocytes Cancelled, Fluid Monocytes Cancelled, Fluid Plasma Cells Cancelled, Fluid Macrophages Cancelled, Fld Mesothelial Cells Cancelled, Fluid Other Cells Cancelled, Fl Pathologist Comment Cancelled, Fluid Comment 2 Cancelled 06/11/21 05:42: WBC 10.6, RBC 3.46 L, Hgb 9.7 L, Hct 31.9 L, MCV 92.2, MCH 28.0, MCHC 30.4 L, RDW Std Deviation 54.4 H, RDW Coeff of Benjamin 16.0 H, Plt Count 417, MPV 10.0, Immature Gran % (Auto) 1.200 H, Neut % (Auto) 88.9 H, Lymph % (Auto) 6.6 L, [place] % (Auto) 3.2, Eos % (Auto) 0.0, Baso % (Auto) 0.1, Absolute Neuts (auto) 9.4 H, Absolute Lymphs (auto) 0.70 L, Nucleated RBC % 0 06/11/21 05:42: Sodium 138, Potassium 3.6, Chloride 99, Carbon Dioxide 34.0 H, Anion Gap 5, BUN 41 H, Creatinine 1.23, Estim Creat Clear Calc 82.33, Est GFR (MDRD) Af Amer 78, Est GFR (MDRD) Non-Af 65, BUN/Creatinine Ratio 33.3 H, Glucose 129 H, Calcium 10.3 H, Total Bilirubin 0.30, AST 38 H, ALT 97 H, Alkaline Phosphatase 67, Total Protein 6.7, Albumin 2.2 L, Globulin 4.5 H, Albumin/Globulin Ratio 0.5 L Micro: Microbiology 06/10/21 13:55 Fluid - Thoracentesis Fluid Gram Stain - Final 06/05/21 15:00 Blood Culture (Wb) - Right Wrist Blood Culture - Final No growth in 5 days. 06/05/21 14:37 Blood Culture (Wb) - Port Blood Culture - Final No growth in 5 days. 06/07/21 12:02 Sputum, Expectorated/Coughed Gram Stain - Final 06/07/21 12:02 Sputum, Expectorated/Coughed Respiratory Culture - Preliminary Presumptive C albicans 06/05/21 21:30 Urine, Clean Catch Legionella Antigen - Final 06/05/21 21:30 Urine, Clean Catch Streptococcus pneumoniae Antigen (M - Final Radiography Diagnostic Testing: Radiology Impression Chest X-Ray 06/10/21 14:00 IMPRESSION: No evidence of pneumothorax on the immediate post right thoracocentesis examination. Electronically Signed: Melquiades Stallings MD at 14:27 EDT , Service support , Physical Exam Const alert and no apparent distress General Appearance: cooperative HEENT normocephalic and head/scalp atraumatic Eyes PERRL, EOMs intact bilaterally and conjunctivae normal Neck supple General: trachea midline Resp no use of accessory muscles Auscultation: diminished lung sounds; Negative for rales, rhonchi or wheezes Cardio regular rate and regular rhythm GI normal to inspection, nondistended, normoactive bowel sounds Extremity no clubbing, cyanosis or edema Skin no rashes or lesions noted Neuro CN's II-XII intact bilaterally and moves all extremities Psych cooperative and affect normal Charges/Coding Visit Charges Inpatient E&M: 68276 Subs Hosp L3
[2021-06-11] MEDS: FLUoxetine 20 MG Capsule 60 MG PO (09:16)
[2021-06-11] MEDS: Amiodarone 200 MG Tablet PO ×2 (09:16→21:00)
[2021-06-11] MEDS: Doxazosin 1 MG Tablet 2 MG PO (09:16)
[2021-06-11] MEDS: Furosemide 40 MG Tablet PO (09:16)
[2021-06-11] MEDS: Metoprolol Tartrate 50 MG Tablet PO ×2 (09:16→21:00)
--- NOTE | 2021-06-11 11:27 | PN.HOSP_ITS ---
Documented by User: Cosmo PACK 06/11/21 11:37 Subjective Subjective Patient is a 55-year-old male comfortably resting in bed, alert and oriented x3. Patient denies any change or progression in symptoms from yesterday. Denies chest pain, shortness of breath, palpitations, hemoptysis, sputum production, fever, chills, N/V/D. Objective Data Objective Data Vital Signs: Vital Signs Temp Pulse Resp BP Pulse Ox 98.5 F 81 20 H 133/70 H 93 06/11/21 02:35 06/11/21 11:02 06/11/21 11:02 06/11/21 09:16 06/11/21 07:10 Oxygen Flow Rate (L/min) [1 ( 5 Initial Baseline)] Oxygen Flow Rate (L/min) 6 Oxygen Delivery Method [2] Room Air Oxygen Delivery Method [1 ( Nasal Cannula Initial Baseline)] Oxygen Delivery Method Nasal Cannula Weight: 275 lb 0.003 oz Body Mass Index (BMI) 33.5 Intake & Output: Intake and Output for Last 24 Hours 06/09/21 06/10/21 06/11/21 23:59 23:59 23:59 Intake Total 2850 / 3250 1980 / 1980 Output Total 2650 / 3500 2356 / 2631 900 / 900 Balance 200 / -250 -376 / -651 -900 / -900 Lab / Micro Data Result Diagrams: 06/11/21 05:42 06/11/21 05:42 Labs: Laboratory Results - last 24 hr 06/10/21 13:55: Fluid Glucose 111 H, Fluid Total Protein 6.5, Fluid LDH 277 06/10/21 13:55: Fluid pH Cancelled 06/10/21 13:55: Fluid Source Cancelled, Fluid Color Cancelled, Fluid Appearance Cancelled, Fluid WBC Cancelled, Fluid RBC Cancelled, Fluid Tot Cell Count Cancelled, Fld Polynuclear WBCs # Cancelled, Fld Polynuclear WBCs % Cancelled, Fluid Mononuclear WBCs Cancelled, Fld Mononuclear WBCs % Cancelled, Fluid Neutrophils Cancelled, Fluid Lymphocytes Cancelled, Fluid Monocytes Cancelled, Fluid Plasma Cells Cancelled, Fluid Macrophages Cancelled, Fld Mesothelial Cells Cancelled, Fluid Other Cells Cancelled, Fl Pathologist Comment Cancelled, Fluid Comment 2 Cancelled 06/11/21 05:42: WBC 10.6, RBC 3.46 L, Hgb 9.7 L, Hct 31.9 L, MCV 92.2, MCH 28.0, MCHC 30.4 L, RDW Std Deviation 54.4 H, RDW Coeff of Benjamin 16.0 H, Plt Count 417, MPV 10.0, Immature Gran % (Auto) 1.200 H, Neut % (Auto) 88.9 H, Lymph % (Auto) 6.6 L, [place] % (Auto) 3.2, Eos % (Auto) 0.0, Baso % (Auto) 0.1, Absolute Neuts (auto) 9.4 H, Absolute Lymphs (auto) 0.70 L, Nucleated RBC % 0 06/11/21 05:42: Sodium 138, Potassium 3.6, Chloride 99, Carbon Dioxide 34.0 H, Anion Gap 5, BUN 41 H, Creatinine 1.23, Estim Creat Clear Calc 82.33, Est GFR (MDRD) Af Amer 78, Est GFR (MDRD) Non-Af 65, BUN/Creatinine Ratio 33.3 H, Glucose 129 H, Calcium 10.3 H, Total Bilirubin 0.30, AST 38 H, ALT 97 H, Alkaline Phosphatase 67, Total Protein 6.7, Albumin 2.2 L, Globulin 4.5 H, Albumin/Globulin Ratio 0.5 L Micro: Microbiology 06/07/21 12:02 Sputum, Expectorated/Coughed Gram Stain - Final 06/07/21 12:02 Sputum, Expectorated/Coughed Respiratory Culture - Final Presumptive C albicans 06/10/21 13:55 Fluid - Thoracentesis Fluid Gram Stain - Final 06/05/21 15:00 Blood Culture (Wb) - Right Wrist Blood Culture - Final No growth in 5 days. 06/05/21 14:37 Blood Culture (Wb) - Port Blood Culture - Final No growth in 5 days. 06/05/21 21:30 Urine, Clean Catch Legionella Antigen - Final 06/05/21 21:30 Urine, Clean Catch Streptococcus pneumoniae Antigen (M - Final Radiography Diagnostic Testing: Radiology Impression Chest X-Ray 06/10/21 14:00 IMPRESSION: No evidence of pneumothorax on the immediate post right thoracocentesis examination. Electronically Signed: Melquiades Stallings MD at 14:27 EDT , Service support , Physical Exam Const alert, oriented x3 and no apparent distress HEENT head/scalp atraumatic and moist oral mucous membranes Head and Scalp: normocephalic Eyes PERRL, EOMs intact bilaterally and conjunctivae normal Neck no lymphadenopathy, supple and no JVD Resp Effort and Inspection: tachypneic Auscultation: diminished lung sounds Cardio regular rate, regular rhythm, no murmurs and no JVD GI normal to inspection, nondistended, normoactive bowel sounds, soft to palpation and non-tender Extremity normal to inspection, full ROM and no clubbing, cyanosis or edema Skin no rashes or lesions noted, no wounds and skin turgor normal Neuro CN's II-XII intact bilaterally Psych affect normal Assessment & Plan Assessment/Plan (1) Acute respiratory failure with hypoxia: (2) Respiratory failure: QUALIFIERS: Chronicity: acute Respiratory failure complication: hypoxia Qualified Code(s): J96.01 - Acute respiratory failure with hypoxia (3) Pneumonia: QUALIFIERS: Laterality: bilateral Lung location: unspecified part of lung Pneumonia type: due to unspecified organism Qualified Code(s): J18.9 - Pneumonia, unspecified organism (4) Small cell lung cancer, right upper lobe: (5) Pneumonia: QUALIFIERS: Laterality: bilateral Lung location: unspecified part of lung Pneumonia type: due to unspecified organism Qualified Code(s): J18.9 - Pneumonia, unspecified organism (6) Atrial fibrillation with rapid ventricular response: (7) Essential (primary) hypertension: PLAN: Day 6: See subjective for patient presentation. Discharge planning: Patient to return home upon discharge. 1) Dyspnea, suspect secondary to CHF vs Pneumonia vs Radiation pneumonitis . Unclear etiology given multiple patient comorbidities as noted above. Suspect patient's episode may be related to his cancer treatments. Spoke with hematology oncology team who agreed to see patient and make an assessment. Thoracentesis completed on 06/10, no complications noted after procedure. Vital signs stable and patient is afebrile. Currently satting 96% on 6 L/min via NC. WBC's currenlty at 10,000. Sputum cultures demonstrates presumptive C. Albicans, not concerning. Blood cultures demonstrate no growth. Legionella and strep pneumo urinary antigen is negative. Antibiotics discontinued. ECHO 06/06; normal LV function and size, an estimated EF of 55%. Plan; continue furosemide 40 mg IV twice daily, continue Arava and BiPAP, continue Solu Medrol, Heme/Onc consult ordered. 2) A. Fib w/ RVR Patient already anticoagulated on Xarelto. Patient has been intiiated on Metoprolol 50 milligrams p.o. twice daily and amiodarone 200 mg p.o. twice daily for rate and rhythm control per cardiology. 3) Acute hypoxic respiratory insufficiency Plan; as above. 4) Lung cancer, metastatic small cell Stage IIIb, follow with oncology as an oupatient. DVT Prophylaxis - Hold home Xarelto. Patient seen by Cosmo Mane PA-C, under the supervision of Dr. Dallas Documented by User: Dr. Gayle Dallas MD 06/11/21 15:33 Objective Data Lab / Micro Data Result Diagrams: 06/11/21 05:42 06/11/21 05:42 Charges/Coding Addendum Addendum: ATTENDING PHYSICIAN NOTE: I have seen and examined the patient independently and agree with the a ssessment, plan, history per Cosmo Mane as noted. Subjective: Patient feels improved this a.m. with less dyspnea, no coughing and decreased oxygenation usage, down to 7 L. Discussed current presentation with transition off of IV Lasix the day prior to oral only and minimal fluid off of thoracentesis with higher suspicion that current ongoing elevated oxygen usage possibly secondary to complications with the immunotherapy. Discussed with patient plan for oncology involvement and continued steroid usage with continuous pulse oximeter and spot checks per Pulmonary recommendation. Patient denies fevers, chills, nausea, emesis, abdominal pain, chest pain or worsened or recurrent dyspnea. VS: As noted below. Physical Examination: General: awake, alert, oriented x 3 and cooperative, seated upright in the PCU bedside chair, no acute distress, improved appearance, denies dyspnea. Skin: normal color, turgor, no icterus, cyanosis. HEENT: AT/NC, EOMI, PERRLA, MMM. Lungs: Diminished BS, > bases, no marked rales, no rhonchi or wheezing, appropriate effort, no evidence of distress, currently on reduced NC supplementation. Heart: Irregular, rate controlled; no gallop, rub audible. Abdomen: soft, obese, NTTP, ND, normal BS. Extremities: no cyanosis, clubbing, or edema. Neurological: patient awake, alert, oriented as noted; cognitive function intact; pupils equally reactive to light and accomodation; cranial nerves II-XII grossly normal, moving all 4 extremities, no focal deficits, strength improving, mildly to moderately globally decreased secondary to acute presentation. Psychiatric: affect appears normal, no acute evidence of depressive or anxiety feelings. Assessment and Plan: The patient is a 55 y/o M w/ PMHx: Small cell lung CA, HTN, HLD, Anxiety and Depression, ALEX, Tobacco use who presents to the [facility] ED on 06/05/21 w/ history of history of dyspnea x1 week with racing heart with hypoxia at patient's oncology office with most recent immunotherapy 05/28/2021 prompting referral to the ED for evaluation. 1. Acute Hypoxic Respiratory Failure, multifactorial including Atrial fibrillation with RVR, Medication Induced Pneumonitis (Immunotherapy, Tecentriq) and Acute Diastolic CHF exacerbation, additionally complicated by underlying small cell lung cancer associated with pleural effusions, recurrent right pleural effusion: Initial ED presentation with dyspnea and racing heart x1 week with hypoxia in the ED with initial ED presentation with atrial fibrillation with RVR and initial evaluation with concern for pneumonia. 06/05/2021 CTPA with no evidence of PE, moderate right-sided pleural effusion with right lung scarring and volume loss, diffuse bilateral ground-glass opacities consistent with subsegmental atelectasis, pneumonitis, pulmonary edema or ARDS. Patient tra nsiently required ICU admission with pulmonary/critical care consultation, initially on air Vo with transition to BiPAP, 06/07/21 started on systemic steroids for concern pneumonitis component, had been on IV vancomycin and Zosyn now d/c, urine antigens negative, respiratory viral panel negative, sputum with presumptive C. albicans only, bld cx NGTD, continued on aerosols, initially on Cardizem drip with bolus however eventually transition to amiodarone and metoprolol with cardiology consulted and following, initially also on IV lasix transitioned to lasix 40 mg daily 06/10/21, echocardiogram with normal LV, normal LV systolic function, EF 55%, attempted thoracentesis 06/10/21 with minimal fluid aspirated with pending cytology/culture but CXR following no marked appearing and chronic component, continue to decrease supplementation as able, will request 06/11/21 Oncology involvement given suspect medication pneumonitis is most critical cause of his current presentation which would mandate avoidance of the agents, continued steroids and supportive care. Additional Co-morbidities: History of small cell lung cancer: Patient noted to be stage III 3B, currently ongoing treatment with atezolizumab, as noted above pleural effusion present possibly associated, thoracentesis 06/10/21 with minimal fluid obtained, pending cytology/culture. Oncology consulted as noted above given suspicion for medication induced pneumonitis. Hypertension: Continue home regimen including doxazosin, metoprolol, Lasix, PRN hydralazine. Anxiety and depression: We will continue patient home fluoxetine regimen. ALEX: BIPAP q HS. Hyperlipidemia: Continue home statin regimen. DVT prophylaxis: SCDs, restarted Xarelto 06/11/21. CODE status: Full Code. Visit Charges Inpatient E&M: 46477 Subs Hosp L2
[2021-06-11] MEDS: Acetaminophen 325 MG Tablet 650 MG PO (11:38)
--- NOTE | 2021-06-11 13:25 | CON.PCM.ON_ITS ---
Assessment & Plan Assessment/Plan (1) Small cell lung cancer, right upper lobe: Status: Chronic Code(s): C34.11 - Malignant neoplasm of upper lobe, right bronchus or lung Plan: Extensive stage disease. On atezolizumab with scans since November 2020 demonstrating continued, partial response to treatment. Received cycle 14 maintenance atezolizumab on 05/28/21. 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 Although fluid studies from thoracentesis are still pending. Per NCCN guidelines, permanently discontinue immune checkpoint inhibitor therapy for grade 3-4 toxicity. Upon discharge, he will require an extended course of steroids, 6 weeks minimum (prednisone 1-2 mg/kg initially- will require prophylaxis with PPI and close follow up with his pcp as anticipate elevated BS). He is advised to keep planned follow up with [facility] on 06/18/21. Case discussed with Dr. Johnson, who was in agreement with the aforementioned plan. HPI Consult Data Date of Service:: 06/11/21 PCP / Referring Provider: Dr. Lizzeth Velasquez MD Attending: Dr. Gayle Dallas MD Chief Complaint Chief Complaint: Extensive stage SCLC History of Present Illness History of Present Illness: Mr Syd Cantu is a very pleasant 55 year gentleman with a PMH positive for inhaled tobacco use, COPD, morbid obesity, hypertension, dyslipidemia, chronic atrial fibrillation (on long-term systemic anticoagulat ion) and persistent abnormality on PET in the rectal area, who was initially diagnosed with Stage IIIB small cell lung cancer March 2019. He is s/p concomitant tlingit & haida based chemoradiation completed May to July 2019. PET/CT July 2020 demonstrated abnormality within the right lung and mediastinal lymph nodes concerning for recurrence, recurrence was later confirmed pathologically by EBUS July 2020. Since metastatic relapse occurred more than 6 months from conclusion of initial therapy, he received combination carboplatin etoposide and atezolizumab x6 cycles completed November 2019 and maintained on immunotherapy, atezolizumab. CT scans since November 2020 have shown stable partial remission of his disease with persistent, residual right- sided pleural effusion. Most recent infusion, cycle 14 atezolizumab was administered on May 28, 2021. *Of note, he has had recurrent right pleural effusion tapped May 2019, January 2020 and June 2020: Cytology negative for malignancy in May 2019, rare atypical cells seen June 2020 highly suspicious for recurrent malignancy stage IV. The patient presented to [facility] on 06/05/2021 for an acute visit at his request with complaints of fever and dyspnea. He was diaphoretic, tachycardic and hypoxic and I advised him to seek care in the ED. In the ED, CBC showed no evidence of leukocytosis, Hgb 10.2 (stable) and jeremy telets preserved. CMP unremarkable. CTA showed no evidence of PE and stable moderate right sided pleural effusion but diffuse bilat ground glass opacities. COVID PCR negative. He was subsequently admitted to PCU for management of acute hypoxia and a fib with RVR. Maintained on Vanco and Zosyn. Underwent echo 06/06/21 which showed normal LV function and EF 55%. Blood, sputum and urine cultures negative. On day 3 of this admission, he was transitioned from supplemental O2 per nc to BiPaP. Pulmonology raised concern for immunotherapy- induced pneumonitis and solumedrol was initiated. Improvement of hypoxia noted, transitioned back to supplemental O2 per nc. Underwent diagnosis and therapeutic thoracentesis on 06/10/21, cytology and microbiology studies pending. Upon entering the room, the patient is sitting upright in bed visiting with sister. Advanced Directives Power of Electric Shipyard Operator: No Living Will: [facility] History Abnormal PET scan of colon Adrenal nodule Asthma, moderate persistent Atrial fibrillation BiPAP (biphasic positive airway pressure) dependence Bipolar disorder Chemotherapy induced neutropenia Chest pain Consolidation of right lower lobe of lung Diabetes mellitus Dyspnea Encounter for education Essential (primary) hypertension Fatigue Hyperlipidemia Irregular heart beat Longstanding persistent atrial fibrillation Lung cancer Marijuana abuse Migraines Nausea Nicotine dependence Nocturia Obesity ALEX (obstructive sleep apnea) Persistent atrial fibrillation Pleural effusion, right Radiation dermatitis Rectal pain Regional lymph node metastasis present Sleep apnea Smoker 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 classification Home Medications fluticasone propionate 2 spray NASAL DAILY PRN PRN 04/11/16 [History Last Taken Unknown] rivaroxaban 20 mg tablet 20 mg PO QDAY #30 tablet 04/17/20 [Rx Last Taken 06/05/21] tiotropium bromide 2.5 mcg/actuation mist for inhalation 2 puff INHALATION DAILY #4 gm 07/25/20 [Rx Last Taken 06/05/21] ondansetron HCl 8 mg PO Q8H PRN PRN 30 Days #30 tablet 08/23/20 [Rx Last Taken Unknown] prochlorperazine maleate 10 mg PO Q6H PRN PRN 10 Days #30 tablet 08/23/20 [Rx Last Taken Unknown] doxazosin 2 mg tablet 2 mg PO DAILY #90 tablet 12/27/20 [Rx Last Taken 06/05/21] albuterol sulfate 90 mcg/actuation breath activated powder inhaler 2 inh INHALATION Q4H PRN PRN #1 each 01/21/21 [Rx Last Taken 06/05/21] fluoxetine 20 mg capsule 60 mg PO DAILY #270 cap 02/05/21 [Rx Last Taken 06/05/21] Disability Placard #1 ea 03/11/21 [Rx Last Taken Unknown] polyethylene glycol 3350 17 gram oral powder packet 17 g PO DAILY PRN 30 Days #30 packet 05/02/21 [Rx Last Taken Unknown] pravastatin 40 mg tablet 40 mg PO DINNER #90 tablet 05/02/21 [Rx Last Taken 06/05/21] budesonide-formoterol [Symbicort] 2 puff INHALATION BID 06/05/21 [History Last Taken 06/05/21] cholecalciferol (vitamin D3) 1,250 mcg PO SA 06/05/21 [History Last Taken 06/01/21] Allergy/AdvReac Type Severity Reaction Status Date / Time pioglitazone HCl [From Actos] AdvReac Severe Other Verified 06/05/21 13:20 Family History Father CAD (coronary artery disease) Hx CABG Family history of hypertension Family history of hyperlipidemia Hypertension CVA (cerebral vascular accident) Mother , Age 55 Sudden cardiac Family history of hypertension Sister Family history of hypertension Family history of hyperlipidemia Diabetes Grandfather CVA (cerebral vascular accident) Grandmother CVA (cerebral vascular accident) Uncle Lung cancer Surgical History History of cardioversion (03/2016) History of stomach ulcers History of thoracentesis (01/2020) History of tonsillectomy Pilonidal cyst (~1986) PORT PLACEMENT Social History Smoking Status: Unknown if ever smoked alcohol intake: never details: occasional substance use type: marijuana caffeine: Yes Type: carbonated beverages and coffee what type of physical activity do you participate in: none romero/episcopalian: Confucianism seatbelt use: always do you feel safe at home: Yes ROS Constitutional Constitutional: Denies difficulty sleeping, fever(s), frequent falls, hea dache(s) or weight loss Eyes Eyes: Denies change in vision Cardiovascular Cardiovascular: Reports fatigue; Denies chest pain, diaphoresis, dizziness, edema or palpitations Respiratory/Chest Respiratory/Chest: Reports dyspnea and wheezing; Denies cough or hemoptysis Gastrointestinal Gastrointestinal: Denies abdominal pain, constipation, diarrhea, dysphagia or early satiety Genitourinary Genitourinary: Denies burning urination, urinary frequency, urinary incontinence or urinary urgency Integumentary Integumentary: Denies lesions or rash Neurologic Neurologic: Denies dizziness, focal weakness, headache(s), numbness or paresthesias Psychiatric Psychiatric: Reports anxiety, depression and other Details: controlled on current medications Hematologic/Lymphatic Hematologic/Lymphatic: Denies easy bleeding or easy bruising Physical Exam Const alert, oriented x3 and no apparent distress HEENT head/scalp atraumatic and moist oral mucous membranes Head and Scalp: normocephalic Eyes PERRL, EOMs intact bilaterally and no scleral icterus Neck supple and no JVD Lymph Lymphatic: no lymphadenopathy noted Resp Auscultation: diminished lung sounds Cardio regular rate and regular rhythm GI normal to inspection, nondistended, normoactive bowel sounds, soft to palpation and non-tender Extremity normal to inspection and no clubbing, cyanosis or edema Extremity Narrative: trophic changes BLE Skin no rashes or lesions noted Neuro CN's II-XII intact bilaterally and moves all extremities Psych affect normal Vital Signs Temperature 98.5 F 06/11/21 02:35 Temperature Source Temporal 06/11/21 02:35 Pulse Rate 81 06/11/21 11:02 Pulse Strength Weak (1+) 06/11/21 07:48 Respiratory Rate 20 H 06/11/21 11:02 Respiratory Effort Non-Labored 06/11/21 09:10 Respiratory Depth Normal 06/11/21 09:10 Respiratory Pattern Normal 06/11/21 11:02 Blood Pressure 133/70 H 06/11/21 09:16 Blood Pressure Mean 95 06/11/21 02:35 Blood Pressure Source Monitor 06/11/21 02:35 Blood Pressure Position Semi-Fowlers 06/11/21 02:35 Blood Pressure Location Left Arm 06/11/21 02:35 Pulse Ox 93 06/11/21 07:10 Oxygen Delivery Method Nasal Cannula 06/11/21 09:10 Oxygen Flow Rate (L/min) 6 06/11/21 09:10 Fraction of Inspired Oxygen (FIO2) 30 06/11/21 03:02 Laboratory Results - last 24 hr 06/10/21 13:55: Fluid Glucose 111 H, Fluid Total Protein 6.5, Fluid LDH 277 06/10/21 13:55: Fluid pH Cancelled 06/10/21 13:55: Fluid Source Cancelled, Fluid Color Cancelled, Fluid Appearance Cancelled, Fluid WBC Cancelled, Fluid RBC Cancelled, Fluid Tot Cell Count Cancelled, Fld Polynuclear WBCs # Cancelled, Fld Polynuclear WBCs % Cancelled, Fluid Mononuclear WBCs Cancelled, Fld Mononuclear WBCs % Cancelled, Fluid Neutrophils Cancelled, Fluid Lymphocytes Cancelled, Fluid Monocytes Cancelled, Fluid Plasma Cells Cancelled, Fluid Macrophages Cancelled, Fld Mesothelial Cells Cancelled, Fluid Other Cells Cancelled, Fl Pathologist Comment Cancelled, Fluid Comment 2 Cancelled 06/11/21 05:42: WBC 10.6, RBC 3.46 L, Hgb 9.7 L, Hct 31.9 L, MCV 92.2, MCH 28.0, MCHC 30.4 L, RDW Std Deviation 54.4 H, RDW Coeff of Benjamin 16.0 H, Plt Count 417, MPV 10.0, Immature Gran % (Auto) 1.200 H, Neut % (Auto) 88.9 H, Lymph % (Auto) 6 .6 L, Yates % (Auto) 3.2, Eos % (Auto) 0.0, Baso % (Auto) 0.1, Absolute Neuts (auto) 9.4 H, Absolute Lymphs (auto) 0.70 L, Nucleated RBC % 0 06/11/21 05:42: Sodium 138, Potassium 3.6, Chloride 99, Carbon Dioxide 34.0 H, Anion Gap 5, BUN 41 H, Creatinine 1.23, Estim Creat Clear Calc 82.33, Est GFR (MDRD) Af Amer 78, Est GFR (MDRD) Non-Af 65, BUN/Creatinine Ratio 33.3 H, Glucose 129 H, Calcium 10.3 H, Total Bilirubin 0.30, AST 38 H, ALT 97 H, Alkaline Phosphatase 67, Total Protein 6.7, Albumin 2.2 L, Globulin 4.5 H, Albumin/Globulin Ratio 0.5 L Microbiology 06/07/21 12:02 Sputum, Expectorated/Coughed Gram Stain - Final 06/07/21 12:02 Sputum, Expectorated/Coughed Respiratory Culture - Final Presumptive C albicans 06/10/21 13:55 Fluid - Thoracentesis Fluid Gram Stain - Final 06/05/21 15:00 Blood Culture (Wb) - Right Wrist Blood Culture - Final No growth in 5 days. 06/05/21 14:37 Blood Culture (Wb) - Port Blood Culture - Final No growth in 5 days. Diagnostic Data Chest CTA 06/05/21 15:[address]: 1[address] evidence of pulmonary embolism. 2. No change in moderate right pleural effusion and right lung scarring with volume loss. 3. Diffuse bilateral groundglass opacities consistent with subsegmental atelectasis, pneumonitis, pulmonary edema, or ARDS. Imaging features can be seen with Covid 19 pneumonia, though are nonspecific and can occur with a variety of infectious and noninfectious processes. Electronically Signed: Pb Troncoso MD at 17:09 EDT Tel , Service support , Echocardiogram 06/05/21 18:00 Interpretation Summary Normal left ventricle. Left ventricular systolic function is normal. The estimated ejection fraction is 55 %. Contrast injection was performed. Ordering Physician: Taylor Guzman Referring Physician: Lizzeth Velasquez Performed By: Gardenia Mayers, RDCS, RVT Chest X-Ray 06/10/21 14:00 IMPRESSION: No evidence of pneumothorax on the immediate post right thoracocentesis examination. Electronically Signed: Melquiades Stallings MD at 14:27 EDT , Service support ,
[2021-06-11] MEDS: Pravastatin 40 MG Tablet PO (17:38)
[2021-06-11] MEDS: Rivaroxaban 20 MG Tablet PO (17:39)
[2021-06-12] VITALS (15 sets, daily range): BP systolic 133–150; BP diastolic 70–80; PULSE 64–90; RESP 14–20; TEMP 35.9–36.9; O2SAT 84–96
[2021-06-12] MEDS: 0.9% Saline Lock 10 ML Syringe IV ×2 (00:21→05:10)
--- NOTE | 2021-06-12 04:52 | CPS ---
Offered bipap to pt, he declined. pt is on 6L nasal o2 satting high 90s , decreased to 5L and notified RN
[2021-06-12] MEDS: Ipratropium/Albuterol Sulfate 3 ML AMPUL.NEB INHALATION ×4 (05:28→19:28)
[2021-06-12 07:16] LABS: Absolute Lymphocyte Count 0.93 X10^3/uL (0.83-4.51); Absolute Neutrophil Count 9.6 X10^3/uL (2.0-7.7); Basophil# 0.02 X10^3/uL; Basophil% 0.2 % (0-1); Eosinophil# 0.01 X10^3/uL; Eosinophils% 0.1 % (0-5); Hematocrit 31.6 % (40-54); Hemoglobin 9.6 g/dL (13.0-16.5); Lymphocyte # 0.93 X10^3/ul (0.83-4.51); Lymphocyte % 8.2 % (19-41); Mean Corp Hgb Conc 30.4 g/dL (32-36); Mean Corpuscular Hgb 27.5 pg (27.0-32.0); Mean Corpuscular Volume 90.5 fL (80-94); Mean Platelet Vol. 9.8 fl (6.2-12.0); Monocyte# 0.49 X10^3/uL; Monocyte% 4.3 % (0-10); NRBC Flagged by Analyzer 0 % (0-5); Neutrophil # 9.63 X10^3/uL (2.7-7.7); Neutrophil % 84.4 % (47-70); Platelet Count 423 K/mm3 (150-450); RBC Distribution Width CV 16.1 % (11.6-14.6); RBC Distribution Width SD 53.4 fl (35.1-43.9); Red Blood Count 3.49 M/mm3 (4.6-6.2); White Blood Count 11.4 K/mm3 (4.4-11.0)
[2021-06-12 07:43] LABS: ALB/GLOB Ratio 0.5 RATIO (0.9-2.4); AST(SGOT) 29 U/L (15-37); Alanine Aminotransfer ALT/SGPT 91 U/L (16-61); Albumin, Serum 2.3 g/dL (3.2-5.0); Alkaline Phosphatase 61 U/L (45-117); Anion Gap 3 (5-15); BUN 38 mg/dL (7-18); BUN/Creat Ratio 36.9 RATIO (10-20); Calcium,Total 10.2 mg/dL (8.5-10.1); Chloride 101 mmol/L (98-107); Creatinine, Serum 1.03 mg/dL (0.70-1.30); EST Glomerular Filtration Rate 79 mL/min (>60); Est Glom Filt Rate - Afr Amer 96 mL/min (>60); Estimated Creatinine Clearance 98.32 ml/min; Globulin 4.2 g/dL (2.2-4.2); Glucose 107 mg/dL (74-106); Potassium 4.2 mmol/L (3.5-5.1); Protein, Total 6.5 g/dL (6.4-8.2); Sodium Level 138 mmol/L (136-145)
[2021-06-12] MEDS: FLUoxetine 20 MG Capsule 60 MG PO (08:52)
[2021-06-12] MEDS: Acetaminophen 325 MG Tablet 650 MG PO ×2 (08:53→19:50)
[2021-06-12] MEDS: Amiodarone 200 MG Tablet PO ×2 (08:53→21:45)
[2021-06-12] MEDS: Metoprolol Tartrate 50 MG Tablet PO ×2 (08:53→21:45)
[2021-06-12] MEDS: Furosemide 40 MG Tablet PO (08:53)
[2021-06-12] MEDS: Doxazosin 1 MG Tablet 2 MG PO (08:53)
--- NOTE | 2021-06-12 10:31 | DCINST_ITS ---
Discharge Instructions Diet Discharge Diet: No restrictions Activity Discharge Activity: Return to Normal Activity Dressing / Incision Call your doctor if you observe: Fever of 101 or Higher, Shortness of breath, Dizziness, Chest pain and Increased palpitations (irregular heartbeat) Follow Up Care Please Follow Up With: Primary care provider When: Within the next two weeks. Test Results: Test results from this visit will be discussed in further detail at your follow-up appointment, if applicable. Discharge Plan Admission Admit Date/Time: 06/05/21 17:14 Primary Reason for Your Visit: Shortness of breath Attending Provider: Gayle Dallas Primary Care Provider: Lizzeth Velasquez Consulting Providers: Regan Schaefer ; Pee Castillo ; Carlitos Philip ; Amanda Rivero NP ; Cristiana Johnson Instructions Patient Instructions: ED Chest Pain, Noncardiac Discharge Orders/Prescriptions Prescriptions: New pantoprazole [Protonix] 40 mg tablet,delayed release (DR/EC) 40 mg PO DAILY Qty: 30 RF: 0 prednisone 20 mg tablet 40 mg PO DAILY Qty: 60 RF: 0 metoprolol tartrate 50 mg tablet 50 mg PO BID Qty: 60 RF: 0 amiodarone 200 mg tablet 200 mg PO BID Qty: 60 RF: 0 Continued (DME) Disability Placard See Rx Instructions .Route .MEDSUPPLY Qty: 1 RF: 0 fluticasone propionate 1 SPRAY spray,suspension 2 spray NASAL DAILY PRN PRN (Reason: Nasal Congestion) RF: 0 ondansetron HCl 8 MG tablet 8 mg PO Q8H PRN PRN (Reason: Nausea) 30 Days Qty: 30 RF: 2 prochlorperazine maleate 10 MG tablet 10 mg PO Q6H PRN PRN (Reason: Nausea) 10 Days Qty: 30 RF: 2 cholecalciferol (vitamin D3) 1,250 mcg (50,000 unit) capsule 1,250 mcg PO SA RF: 0 budesonide-formoterol [Symbicort] 160-4.5 mcg/actuation HFA aerosol inhaler 2 puff INHALATION BID RF: 0 rivaroxaban 20 mg tablet 20 mg PO QDAY Qty: 30 RF: 12 tiotropium bromide 2.5 mcg/actuation mist 2 puff INHALATION DAILY Qty: 4 RF: 11 doxazosin 2 mg tablet 2 mg PO DAILY Qty: 90 RF: 3 albuterol sulfate 90 mcg/actuation aerosol powdr breath activated 2 inh INHALATION Q4H PRN PRN (Reason: Sob &/Or Wheezing) Qty: 1 RF: 6 fluoxetine 20 mg capsule 60 mg PO DAILY Qty: 270 RF: 1 polyethylene glycol 3350 17 gram powder in packet 17 g PO DAILY PRN (Reason: Constipation) 30 Days Qty: 30 RF: 1 pravastatin 40 mg tablet 40 mg PO DINNER Qty: 90 RF: 3 Referrals / Follow Up: Pee Castillo MD [STAFF PHYSICIAN] - In 1 Week Regan Schaefer MD [STAFF PHYSICIAN] - Within 2 Weeks Lizzeth Velasquez MD [Primary Care Provider] - Within 2 Weeks Lo Bird NP, LICENSED SOCIAL WORKER-C [Nurse Practitioner] - In 1 Week (At your scheduled appointment on 06/18/21. ) Disposition Disposition (needs filled in before D/C Order can be placed): Home, Self Care
--- NOTE | 2021-06-12 10:39 | PN.CC_ITS ---
Assessment & Plan Assessment/Plan (1) Acute respiratory failure with hypoxia: PLAN: RECOMMENDATIONS: 1. Continue to wean supplemental oxygen as tolerated. 2. Continue IV steroids. 3. Continue gentle diuresis as tolerated by renal function. 4. Encourage incentive spirometer use and mobilize patient as tolerated. 5. Continue noninvasive positive pressure ventilatory support as needed. 6. At discharge, I would recommend that the patient be placed on 40 mg daily of prednisone. He will likely require a prolonged taper over the course of the next 6 weeks. He should follow-up in the pulmonary medicine clinic 2 weeks after discharge. Recommend performing a walking oximetry study prior to consideration for discharge home. IMPRESSIONS: 1. Acute hypoxemic respiratory failure Clinical concern for multifactorial etiology, including atrial fibrillation with RVR, congestive heart failure and possible medication induced pneumonitis. The patient's cancer immunotherapy has also been associated with pleural effusion formation. The patient is currently being treated with Tecentriq, which has been known to cause pneumonitis. It is reasonable to continue IV steroid therapy accordingly. Continue to wean supplemental oxygen as tolerated to maintain saturations at or above 90%. Encourage incentive spirometer use and mobilize patient as tolerated. 2. History of atrial fibrillation with RVR/chronic heart failure with preserved ejection fraction The patient was noted to be in atrial fibrillation with RVR on presentation, but is currently rate controlled. Cardiology is currently following. Continue current medical management. 3. History of small cell lung cancer The patient is currently on treatment with atezolizumab. The findings noted on his chest imaging, including the pleural effusion may be secondary to the aforementioned medication. Recommend continuing steroid therapy as ordered. The patient's primary oncology team should be made aware that this is a clinical concern. 4. Obesity/hypertension/hyperlipidemia/anxiety/depression Complicates care, management, recovery and prognosis. Continue home medications as indicated. This note was generated with [employer] dictation software. It may contain incorrect words, spelling, and punctuation that were not noted in checking the note before signing. Subjective Subjective The patient was seen and examined at the bedside this morning. Events from the last 24 hours have been reviewed. The patient is currently afebrile, hemodynamically stable and maintaining appropriate oxygen saturations on 4 L/min via nasal cannula. The patient is currently documented to be overall net +1.4 L for the hospital admission. The patient denies any shortness of breath. Objective Data Objective Data The patient's most recent lab work, culture data and imaging studies have all been personally reviewed. Surface echocardiogram revealed normal LV size and function with an ejection fraction of 55%. Coronavirus PCR was negative. Blood, urine and sputum cultures are pending. Vital Signs: Vital Signs Temp Pulse Resp BP Pulse Ox 96.6 F L 82 18 150/80 H 95 06/12/21 08:50 06/12/21 08:53 06/12/21 08:50 06/12/21 08:53 06/12/21 08:50 Oxygen Flow Rate (L/min) [1 ( 5 Initial Baseline)] Oxygen Flow Rate (L/min) 4 Oxygen Delivery Method [2] Room Air Oxygen Delivery Method [1 ( Nasal Cannula Initial Baseline)] Oxygen Delivery Method Nasal Cannula Weight: 275 lb 0.003 oz Body Mass Index (BMI) 33.5 Intake & Output: Intake and Output for Last 24 Hours 06/10/21 06/11/21 06/12/21 23:59 23:59 23:59 Intake Total 1979 / 1979 480 / 480 Output Total 2356 / 2631 1675 / 1950 575 / 575 Balance -376 / -651 -1195 / -1470 -575 / -575 Lab / Micro Data Attestation: I reviewed the patient's lab results. Result Diagrams: 06/12/21 06:44 06/12/21 06:44 Labs: Laboratory Results - last 24 hr 06/12/21 06:44: WBC 11.4 H, RBC 3.49 L, Hgb 9.6 L, Hct 31.6 L, MCV 90.5, MCH 27.5, MCHC 30.4 L, RDW Std Deviation 53.4 H, RDW Coeff of Benjamin 16.1 H, Plt Count 423, MPV 9.8, Immature Gran % (Auto) 2.800 H, Neut % (Auto) 84.4 H, Lymph % (Auto) 8.2 L, Cecil % (Auto) 4.3, Eos % (Auto) 0.1, Baso % (Auto) 0.2, Absolute Neuts (auto) 9.6 H, Absolute Lymphs (auto) 0.93, Nucleated RBC % 0 06/12/21 06:44: Sodium 138, Potassium 4.2, Chloride 101, Carbon Dioxide 34.0 H, Anion Gap 3 L, BUN 38 H, Creatinine 1.03, Estim Creat Clear Calc 98.32, Est GFR (MDRD) Af Amer 96, Est GFR (MDRD) Non-Af 79, BUN/Creatinine Ratio 36.9 H, Gluc ose 107 H, Calcium 10.2 H, Total Bilirubin 0.30, AST 29, ALT 91 H, Alkaline Phosphatase 61, Total Protein 6.5, Albumin 2.3 L, Globulin 4.2, Albumin/Globulin Ratio 0.5 L Micro: Microbiology 06/10/21 13:55 Fluid - Thoracentesis Fluid Gram Stain - Final 06/10/21 13:55 Fluid - Thoracentesis Fluid Body Fluid Culture - Preliminary No growth-Final to follow 06/07/21 12:02 Sputum, Expectorated/Coughed Gram Stain - Final 06/07/21 12:02 Sputum, Expectorated/Coughed Respiratory Culture - Final Presumptive C albicans 06/05/21 15:00 Blood Culture (Wb) - Right Wrist Blood Culture - Final No growth in 5 days. 06/05/21 14:37 Blood Culture (Wb) - Port Blood Culture - Final No growth in 5 days. 06/05/21 21:30 Urine, Clean Catch Legionella Antigen - Final 06/05/21 21:30 Urine, Clean Catch Streptococcus pneumoniae Antigen (M - Final Physical Exam Const alert and no apparent distress General Appearance: cooperative HEENT normocephalic and head/scalp atraumatic Eyes PERRL, EOMs intact bilaterally and conjunctivae normal Neck supple General: trachea midline Resp no use of accessory muscles Auscultation: diminished lung sounds; Negative for rales, rhonchi or wheezes Cardio regular rate and regular rhythm GI normal to inspection, nondistended, normoactive bowel sounds Extremity no clubbing, cyanosis or edema Skin no rashes or lesions noted Neuro CN's II-XII intact bilaterally and moves all extremities Psych cooperative and affect normal Charges/Coding Visit Charges Inpatient E&M: 54194 Subs Hosp L2
--- NOTE | 2021-06-12 12:41 | PN.HOSP_ITS ---
Documented by User: Cosmo PACK 06/12/21 12:57 Subjective Subjective Patient is a 55-year-old male comfortably resting in bed, alert and orient x3. Patient reports resolution of shortness of breath, however with ambulation patient's oxygen saturations dropped to 84% at 8 L. Patient would like to return home however acknowledges that he probably needs 1 more day of admission until his oxygen saturations improve. Denies chest pain, shortness of breath, palpitations, hemoptysis, sputum production, fever, chills, N/V/D. Objective Data Objective Data Vital Signs: Vital Signs Temp Pulse Resp BP Pulse Ox 96.6 F L 82 18 150/80 H 95 06/12/21 08:50 06/12/21 08:53 06/12/21 08:50 06/12/21 08:53 06/12/21 08:50 Oxygen Flow Rate (L/min) [1 ( 5 Initial Baseline)] Oxygen Flow Rate (L/min) 4 Oxygen Delivery Method [2] Room Air Oxygen Delivery Method [1 ( Nasal Cannula Initial Baseline)] Oxygen Delivery Method Nasal Cannula Weight: 275 lb 0.003 oz Body Mass Index (BMI) 33.5 Intake & Output: Intake and Output for Last 24 Hours 06/10/21 06/11/21 06/12/21 23:59 23:59 23:59 Intake Total 1979 / 1979 480 / 480 240 / 240 Output Total 2356 / 2631 1675 / 1950 1025 / 1025 Balance -376 / -651 -1195 / -1470 -785 / -785 Lab / Micro Data Result Diagrams: 06/12/21 06:44 06/12/21 06:44 Labs: Laboratory Results - last 24 hr 06/12/21 06:44: WBC 11.4 H, RBC 3.49 L, Hgb 9.6 L, Hct 31.6 L, MCV 90.5, MCH 27.5, MCHC 30.4 L, RDW Std Deviation 53.4 H, RDW Coeff of Benjamin 16.1 H, Plt Count 423, MPV 9.8, Immature Gran % (Auto) 2.800 H, Neut % (Auto) 84.4 H, Lymph % (Auto) 8.2 L, [place] % (Auto) 4.3, Eos % (Auto) 0.1, Baso % (Auto) 0.2, Absolute Neuts (auto) 9.6 H, Absolute Lymphs (auto) 0.93, Nucleated RBC % 0 06/12/21 06:44: Sodium 138, Potassium 4.2, Chloride 101, Carbon Dioxide 34.0 H, Anion Gap 3 L, BUN 38 H, Creatinine 1.03, Estim Creat Clear Calc 98.32, Est GFR (MDRD) Af Amer 96, Est GFR (MDRD) Non-Af 79, BUN/Creatinine Ratio 36.9 H, Gl ucose 107 H, Calcium 10.2 H, Total Bilirubin 0.30, AST 29, ALT 91 H, Alkaline Phosphatase 61, Total Protein 6.5, Albumin 2.3 L, Globulin 4.2, Albumin/Globulin Ratio 0.5 L Micro: Microbiology 06/10/21 13:55 Fluid - Thoracentesis Fluid Gram Stain - Final 06/10/21 13:55 Fluid - Thoracentesis Fluid Body Fluid Culture - Preliminary No growth-Final to follow 06/07/21 12:02 Sputum, Expectorated/Coughed Gram Stain - Final 06/07/21 12:02 Sputum, Expectorated/Coughed Respiratory Culture - Final Presumptive C albicans 06/05/21 15:00 Blood Culture (Wb) - Right Wrist Blood Culture - Final No growth in 5 days. 06/05/21 14:37 Blood Culture (Wb) - Port Blood Culture - Final No growth in 5 days. 06/05/21 21:30 Urine, Clean Catch Legionella Antigen - Final 06/05/21 21:30 Urine, Clean Catch Streptococcus pneumoniae Antigen (M - Final Physical Exam Const alert, oriented x3 and no apparent distress HEENT head/scalp atraumatic, moist oral mucous membranes and oropharynx normal Head and Scalp: normocephalic Eyes PERRL, EOMs intact bilaterally and conjunctivae normal Neck no lymphadenopathy, supple and no JVD Resp normal respiratory effort, no retractions, no use of accessory muscles and clear to auscultation bilaterally Resp Narrative: Oxygen saturation is 95% at 4 L via nasal cannula at rest, however with ambulation oxygen saturation is dropped to 84% on 8 L. Cardio regular rate, regular rhythm, no murmurs and no JVD GI normal to inspection, nondistended, normoactive bowel sounds, soft to palpation and non-tender Extremity normal to inspection, full ROM and no clubbing, cyanosis or edema Skin no rashes or lesions noted, no wounds, skin turgor normal and no jaundice Neuro CN's II-XII intact bilaterally Psych affect normal Assessment & Plan Assessment/Plan (1) Acute respiratory failure with hypoxia: (2) Respiratory failure: QUALIFIERS: Chronicity: acute Respiratory failure complication: hypoxia Qualified Code(s): J96.01 - Acute respiratory failure with hypoxia (3) Small cell lung cancer, right upper lobe: (4) Atrial fibrillation with rapid ventricular response: (5) Essential (primary) hypertension: PLAN: Day 7: See subjective for patient presentation. Discharge planning: Attempted to discharge patient on 06/12, however due to low oxygen saturation patient remained admitted overnight. Patient to return home on discharge pending improved oxygen saturations. 1) Acute hypoxic Respiratory failure, mulfactorial etiology including Medication induced pneumonitis, A-Fib w/ RVR and Acute diastolic CHF exacerbation. Patient was scheduled to be discharged on 06/12 as he was satting above 95% on 4 liters via nasal cannula. However, w/ ambulation patient was satting 84% on 8 liters. Would prefer if patient could maintain oxygen saturations above 90% on at least 6 liters. Patient will remain admitted overnight and will re-attempt ambulatory pulse ox in am. Patient to follow w/ Heme/Onc, Pulnology, Cardiology and PCP upon discharge. Patient should be discharged on prednisone 40mg until f/u with pulmonolgy. Patient should be discharged on amiodarone and metoprolol at current doses, per cardiology. Patient also should be initiated on Protonix 40 mg daily, per hematology oncology. Plan;continue Arava and BiPAP, continue Solu Medrol, contiue Lasix 40mg daily, continue duonebs, reattempt ambulatory pulse ox in a.m. 2) A. Fib w/ RVR Patient already anticoagulated on Xarelto. Patient has been intiiated on Metoprolol 50 milligrams p.o. twice daily and amiodarone 200 mg p.o. twice daily for rate and rhythm control per cardiology. Plan; as above. 3) Lung cancer, metastatic small cell Stage IIIb. Pateint is to follow up with [facility] on 06/18 after discharge. Recommendations are as follows: Permanently discontinue immune checkpoint inhibitor therapy, initiate prednisone for a minimum of 6 weeks for pneumonitis and initiate PPI. Also, recommend follow-up with PCP for elevated blood sugars due to long-term prednisone prescription. DVT Prophylaxis - Xarelto Patient seen by Cosmo Mane PA-C, under the supervision of Dr. Dallas Documented by User: Dr. Gayle Dallas MD 06/12/21 14:45 Objective Data Lab / Micro Data Result Diagrams: 06/12/21 06:44 06/12/21 06:44
--- NOTE | 2021-06-12 14:33 | DCINST_ITS ---
Discharge Instructions Diet Discharge Diet: Low fat / Low cholesterol Activity Discharge Activity: - (Avoid aggressive activity until oxygen weaned and re- evaluated by pulmonary medicine.) Weight Bearing Status: Weight bearing as tolerated Dressing / Incision Call your doctor if you observe: Fever of 101 or Higher, Shortness of breath, Dizziness, Fainting spells, Swelling in the ankles, Chest pain and Increased palpitations (irregular heartbeat) Follow Up Care Please Follow Up With: Primary care provider Test Results: Test results from this visit will be discussed in further detail at your follow-up appointment, if applicable. Discharge Plan Admission Admit Date/Time: 06/05/21 17:14 Primary Reason for Your Visit: Acute Resp Failure 2/2 Medication Pneumonitis, PAF w/ RVR, Poss CHF Attending Provider: Gayle Dallas Primary Care Provider: Lizzeth Velasquze Consulting Providers: Regan Schaefer ; Pee Castillo ; Carlitos Philip ; Amanda Rivero NP ; Cristiana Johnsno Instructions Patient Instructions: ED Understanding Hypersensitivity Pneumonitis, What Is Heart Failure, What Is Atrial Flutter/Atrial Fibrillation?, Traveling with Oxygen, Using Oxygen Safely, Using Oxygen at Home, Understanding Atrial Fibrillation Additional Instructions / Restrictions: Atrial fibrillation with RVR (irregular heart rhythm): Please continue amiodarone, metoprolol and xarelto regimen. Follow-up with Dr. Schaefer as requested. Suspected Medication Induced Pneumonitis: Please continue the daily prednisone 40 mg until re-evaluation per Pulmonary at follow-up. Please also continue evaluation with Oncology who will discuss alternate treatment options with you at your visit. Continue oxygen supplementation until appropriate weaned per Pulmonary medicine. Concern for possible Heart Failure component: During the admission you were also placed on lengthy course of IV lasix medication eventually transitioned to oral regimen. Please continue this until your re-evaluation with Dr. Schaefer. Discharge Orders/Prescriptions Prescriptions: New pantoprazole [Protonix] 40 mg tablet,delayed release (DR/EC) 40 mg PO DAILY Qty: 30 RF: 0 prednisone 20 mg tablet 40 mg PO DAILY Qty: 60 RF: 0 metoprolol tartrate 50 mg tablet 50 mg PO BID Qty: 60 RF: 0 amiodarone 200 mg tablet 200 mg PO BID Qty: 60 RF: 0 furosemide 40 mg Tablet 40 mg PO DAILY 30 Days Qty: 30 RF: 0 Continued (DME) Disability Placard See Rx Instructions .Route .MEDSUPPLY Qty: 1 RF: 0 fluticasone propionate 1 SPRAY spray,suspension 2 spray NASAL DAILY PRN PRN (Reason: Nasal Congestion) RF: 0 ondansetron HCl 8 MG tablet 8 mg PO Q8H PRN PRN (Reason: Nausea) 30 Days Qty: 30 RF: 2 prochlorperazine maleate 10 MG tablet 10 mg PO Q6H PRN PRN (Reason: Nausea) 10 Days Qty: 30 RF: 2 cholecalciferol (vitamin D3) 1,250 mcg (50,000 unit) capsule 1,250 mcg PO SA RF: 0 budesonide-formoterol [Symbicort] 160-4.5 mcg/actuation HFA aerosol inhaler 2 puff INHALATION BID RF: 0 rivaroxaban 20 mg tablet 20 mg PO QDAY Qty: 30 RF: 12 tiotropium bromide 2.5 mcg/actuation mist 2 puff INHALATION DAILY Qty: 4 RF: 11 doxazosin 2 mg tablet 2 mg PO DAILY Qty: 90 RF: 3 albuterol sulfate 90 mcg/actuation aerosol powdr breath activated 2 inh INHALATION Q4H PRN PRN (Reason: Sob &/Or Wheezing) Qty: 1 RF: 6 fluoxetine 20 mg capsule 60 mg PO DAILY Qty: 270 RF: 1 polyethylene glycol 3350 17 gram powder in packet 17 g PO DAILY PRN (Reason: Constipation) 30 Days Qty: 30 RF: 1 pravastatin 40 mg tablet 40 mg PO DINNER Qty: 90 RF: 3 Referrals / Follow Up: Pee Castillo MD [STAFF PHYSICIAN] - 06/20/21 8:15 am Regan Schaefer MD [STAFF PHYSICIAN] - 06/26/21 1:00 pm Lizzeth Velasquez MD [Primary Care Provider] - None (Please follow-up with your primary care physician within 3-5 days to review prolonged complicated admission.) Disposition Disposition (needs filled in before D/C Order can be placed): Home Health Service
[2021-06-12] MEDS: Polyethylene Glycol 3350 17 GM PACKET PO (16:42)
[2021-06-12] MEDS: Rivaroxaban 20 MG Tablet PO (16:42)
[2021-06-12] MEDS: Pravastatin 40 MG Tablet PO (16:42)
--- NOTE | 2021-06-12 22:00 | NURSING ---
2100 VS late d/t completing and admission at that time Deandre, RN
[2021-06-13] VITALS (18 sets, daily range): BP systolic 131–154; BP diastolic 66–85; PULSE 64–89; RESP 12–18; TEMP 36.4–36.7; O2SAT 84–95
[2021-06-13 06:55] LABS: Basophil# 0.02 X10^3/uL; Basophil% 0.2 % (0-1); Hematocrit 33.4 % (40-54); Hemoglobin 10.2 g/dL (13.0-16.5); Lymphocyte % 7.7 % (19-41); Mean Corp Hgb Conc 30.5 g/dL (32-36); Mean Corpuscular Hgb 27.8 pg (27.0-32.0); Mean Platelet Vol. 9.8 fl (6.2-12.0); Monocyte# 0.46 X10^3/uL; Monocyte% 3.5 % (0-10); NRBC Flagged by Analyzer 0 % (0-5); Neutrophil # 10.99 X10^3/uL (2.7-7.7); Neutrophil % 84.2 % (47-70); Platelet Count 440 K/mm3 (150-450); RBC Distribution Width CV 16.5 % (11.6-14.6); RBC Distribution Width SD 54.4 fl (35.1-43.9); Red Blood Count 3.67 M/mm3 (4.6-6.2); White Blood Count 13.1 K/mm3 (4.4-11.0)
[2021-06-13] MEDS: Acetaminophen 325 MG Tablet 650 MG PO (07:03)
[2021-06-13 07:27] LABS: ALB/GLOB Ratio 0.6 RATIO (0.9-2.4); AST(SGOT) 28 U/L (15-37); Alanine Aminotransfer ALT/SGPT 95 U/L (16-61); Albumin, Serum 2.4 g/dL (3.2-5.0); Alkaline Phosphatase 63 U/L (45-117); Anion Gap 5 (5-15); BUN 38 mg/dL (7-18); BUN/Creat Ratio 33.6 RATIO (10-20); Calcium,Total 9.7 mg/dL (8.5-10.1); Chloride 102 mmol/L (98-107); Creatinine, Serum 1.13 mg/dL (0.70-1.30); EST Glomerular Filtration Rate 71 mL/min (>60); Est Glom Filt Rate - Afr Amer 86 mL/min (>60); Estimated Creatinine Clearance 89.62 ml/min; Globulin 4.1 g/dL (2.2-4.2); Glucose 117 mg/dL (74-106); Potassium 4.2 mmol/L (3.5-5.1); Protein, Total 6.5 g/dL (6.4-8.2); Sodium Level 140 mmol/L (136-145)
[2021-06-13] MEDS: Ipratropium/Albuterol Sulfate 3 ML AMPUL.NEB INHALATION ×4 (07:28→21:51)
[2021-06-13] MEDS: Amiodarone 200 MG Tablet PO ×2 (09:15→21:44)
[2021-06-13] MEDS: Doxazosin 1 MG Tablet 2 MG PO (09:16)
[2021-06-13] MEDS: Furosemide 40 MG Tablet PO (09:16)
[2021-06-13] MEDS: Metoprolol Tartrate 50 MG Tablet PO ×2 (09:16→21:44)
[2021-06-13] MEDS: FLUoxetine 20 MG Capsule 60 MG PO (09:16)
--- NOTE | 2021-06-13 11:41 | PN.HOSP_ITS ---
Documented by User: Yesi Haynes NP, AQUATIC SCIENTIST-C 06/13/21 12:12 Subjective Subjective Patient seen and examined. Denies increased shortness of breath however oxygen increased to 6 L at rest this morning. Denies other symptoms or complaints. Plan to repeat walking oxygen testing today, may discharge when patient maintains 6L or less with ambulation. Objective Data Objective Data Vital Signs: Vital Signs Temp Pulse Resp BP Pulse Ox 97.8 F 72 16 143/85 H 92 06/13/21 11:06/13/21 11:07 06/13/21 11:07 06/13/21 11:07 06/13/21 11:07 Oxygen Flow Rate (L/min) [1 ( 5 Initial Baseline)] Oxygen Flow Rate (L/min) 6 Oxygen Delivery Method [2] Room Air Oxygen Delivery Method [1 ( Nasal Cannula Initial Baseline)] Oxygen Delivery Method Nasal Cannula Weight: 275 lb 0.003 oz Body Mass Index (BMI) 33.5 Intake & Output: Intake and Output for Last 24 Hours 06/11/21 06/12/21 06/13/21 23:59 23:59 23:59 Intake Total 480 / 480 1200 / 1200 240 / 240 Output Total 1675 / 1950 1875 / 1875 700 / 700 Balance -1195 / -1470 -675 / -675 -460 / -460 Lab / Micro Data Result Diagrams: 06/13/21 06:12 06/13/21 06:12 Labs: Laboratory Results - last 24 hr 06/10/21 13:55: Miscellaneous Cytology SEE PATHOLOGY REPORT 06/13/21 06:12: WBC 13.1 H, RBC 3.67 L, Hgb 10.2 L, Hct 33.4 L, MCV 91.0, MCH 27.8, MCHC 30.5 L, RDW Std Deviation 54.4 H, RDW Coeff of Benjamin 16.5 H, Plt Count 440, MPV 9.8, Immature Gran % (Auto) 4.400 H, Neut % (Auto) 84.2 H, Lymph % (Auto) 7.7 L, [place] % (Auto) 3.5, Eos % (Auto) 0.0, Baso % (Auto) 0.2, Absolute Neuts (auto) 11.0 H, Absolute Lymphs (auto) 1.00, Nucleated RBC % 0 06/13/21 06:12: Sodium 140, Potassium 4.2, Chloride 102, Carbon Dioxide 33.0 H, Anion Gap 5, BUN 38 H, Creatinine 1.13, Estim Creat Clear Calc 89.62, Est GFR (MDRD) Af Amer 86, Est GFR (MDRD) Non-Af 71, BUN/Creatinine Ratio 33.6 H, Glucose 117 H, Calcium 9.7, Total Bilirubin 0.30, AST 28, ALT 95 H, Alkaline Phosphatase 63, Total Protein 6.5, Albumin 2.4 L, Globulin 4.1, Albumin/Globulin Ratio 0.6 L Micro: Microbiology 06/10/21 13:55 Fluid - Thoracentesis Fluid Gram Stain - Final 06/10/21 13:55 Fluid - Thoracentesis Fluid Body Fluid Culture - Preliminary No growth-Final to follow 06/10/21 13:55 Fluid - Thoracentesis Fluid Anaerobic Culture - Preliminary No growth in 48 hours. 06/07/21 12:02 Sputum, Expectorated/Coughed Gram Stain - Final 06/07/21 12:02 Sputum, Expectorated/Coughed Respiratory Culture - Final Presumptive C albicans 06/05/21 15:00 Blood Culture (Wb) - Right Wrist Blood Culture - Final No growth in 5 days. 06/05/21 14:37 Blood Culture (Wb) - Port Blood Culture - Final No growth in 5 days. 06/05/21 21:30 Urine, Clean Catch Legionella Antigen - Final 06/05/21 21:30 Urine, Clean Catch Streptococcus pneumoniae Antigen (M - Final Physical Exam Const alert, oriented x3 and no apparent distress Orientation / Consciousness: awake, oriented to person, oriented to place and oriented to time HEENT normocephalic and moist oral mucous membranes Eyes PERRL, EOMs intact bilaterally and conjunctivae normal Neck no lymphadenopathy Resp clear to auscultation bilaterally Auscultation: diminished lung sounds Cardio regular rate, regular rhythm and no murmurs Peripheral Pulses: pulses 2+ throughout GI normal to inspection, nondistended, normoactive bowel sounds, non-tender and non-distended Extremity normal to inspection Skin no rashes or lesions noted Lesions: no lesions Rashes: no rashes Trauma: no lacerations or abrasions Neuro CN's II-XII intact bilaterally, no focal motor deficits, no sensory deficits noted and deep tendon reflexes 2+ bilaterally Psych mental status grossly normal and affect normal Assessment & Plan Assessment/Plan (1) Acute respiratory failure with hypoxia: PLAN: 1. Acute hypoxic respiratory failure, multifactorial secondary to medication induced pneumonitis, atrial fibrillation with RVR, small cell lung cancer with associated pleural effusions, and acute heart failure with preserved ejection fraction-status post diagnostic and therapeutic thoracentesis 06/10/2021. Continue IV Solu-Medrol. Completed course of IV antibiotics. Respiratory panel negative. Sputum culture unremarkable. Blood cultures no growth. Continue scheduled and as needed aerosols. Continue supplement oxygen to maintain O2 at above 90%. Plan for discharge patient is able to tolerate 6 L or less with ambulation. 2. Acute heart failure with preserved ejection fraction-echocardiogram 06/06/21 demonstrates an EF of 55%. Further IV Lasix discontinued. Continue oral Lasix regimen. 3. Persistent atrial fibrillation with RVR-cardiology following. Initially on Cardizem drip on admission. Now stable. Continue metoprolol, amiodarone. On Xarelto. 4. Metastatic small cell lung cancer, stage IIIb-with recurrent malignant pleural effusions. Following with Dr. Johnson. 5. Hypertension-stable, continue with doxazosin, metoprolol, Lasix. 6. Hyperlipidemia-continue statin. 7. Anxiety/depression-on fluoxetine. 8. ALEX-on BiPAP nightly. 9. Chronic COPD-continue as needed albuterol aerosols. 10. History of tobacco use-in remission DVT prophylaxis-Xarelto Discharge plan: Home with O2 when able to ambulate with 6 L or less. This patient was seen by ROBERT Torres under the supervision of Dr. Dallas. Documented by User: Dr. Gayle Dallas MD 06/13/21 18:28 Objective Data Lab / Micro Data Result Diagrams: 06/13/21 06:12 06/13/21 06:12
[2021-06-13] MEDS: Polyethylene Glycol 3350 17 GM PACKET PO (13:36)
--- NOTE | 2021-06-13 14:14 | PN.CC_ITS ---
Assessment & Plan Assessment/Plan (1) Acute respiratory failure with hypoxia: PLAN: RECOMMENDATIONS: 1. Continue to wean supplemental oxygen as tolerated. 2. Continue steroids. 3. Continue gentle diuresis as tolerated by renal function. 4. Encourage incentive spirometer use and mobilize patient as tolerated. 5. Continue noninvasive positive pressure ventilatory support as needed. 6. At discharge, I would recommend that the patient be placed on 40 mg daily of prednisone. He will likely require a prolonged taper over the course of the next 6 weeks. He should follow-up in the pulmonary medicine clinic 2 weeks after discharge. Recommend performing a walking oximetry study prior to consideration for discharge home. Agree that once the patient is able to ambulate on 6 L/min or less of oxygen he can be discharged home. IMPRESSIONS: 1. Acute hypoxemic respiratory failure Clinical concern for multifactorial etiology, including atrial fibrillation with RVR, congestive heart failure and possible medication induced pneumonitis. The patient's cancer immunotherapy has also been associated with pleural effusion formation. The patient was previously being treated with Tecentriq, which has been known to cause pneumonitis. It is reasonable to continue IV steroid therapy accordingly. Continue to wean supplemental oxygen as tolerated to maintain saturations at or above 90%. Encourage incentive spirometer use and mobilize patient as tolerated. 2. History of atrial fibrillation with RVR/chronic heart failure with preserved ejection fraction The patient was noted to be in atrial fibrillation with RVR on presentation, but is currently rate controlled. Cardiology is currently following. Continue current medical management. 3. History of small cell lung cancer The patient is currently on treatment with atezolizumab. The findings noted on his chest imaging, including the pleural effusion may be secondary to the aforementioned medication. Recommend continuing steroid therapy as ordered. 4. Obesity/hypertension/hyperlipidemia/anxiety/depression Complicates care, management, recovery and prognosis. Continue home medications as indicated. This note was generated with [employer] dictation software. It may contain incorrect words, spelling, and punctuation that were not noted in checking the note before signing. Subjective Subjective The patient was seen and examined at the bedside this morning. Events from the last 24 hours have been reviewed. The patient is currently afebrile, hemodynamically stable and maintaining appropriate oxygen saturations on 6 L/min via nasal cannula. The patient denies any shortness of breath. Unfortunately, he did desaturate readily with ambulation yesterday, which precluded his discharge from occurring. Objective Data Objective Data The patient's most recent lab work, culture data and imaging studies have all been personally reviewed. Surface echocardiogram revealed normal LV size and function with an ejection fraction of 55%. Coronavirus PCR was negative. Blood, urine and sputum cultures have shown no growth to date. Vital Signs: Vital Signs Temp Pulse Resp BP Pulse Ox 97.8 F 80 18 143/85 H 84 06/13/21 11:06/13/21 11:19 06/13/21 11:06/13/21 11:06/13/21 13:38 Oxygen Flow Rate (L/min) [1 ( 5 Initial Baseline)] Oxygen Flow Rate (L/min) [ 8 AMBULATING with Oxygen #2] Oxygen Flow Rate (L/min) [ 6 AMBULATING with Oxygen #1] Oxygen Flow Rate (L/min) 6 Oxygen Delivery Method [2] Room Air Oxygen Delivery Method [1 ( Nasal Cannula Initial Baseline)] Oxygen Delivery Method Nasal Cannula Weight: 275 lb 0.003 oz Body Mass Index (BMI) 33.5 Intake & Output: Intake and Output for Last 24 Hours 06/11/21 06/12/21 06/13/21 23:59 23:59 23:59 Intake Total 480 / 480 1200 / 1200 240 / 240 Output Total 1675 / 1950 1875 / 1875 700 / 700 Balance -1195 / -1470 -675 / -675 -460 / -460 Lab / Micro Data Attestation: I reviewed the patient's lab results. Result Diagrams: 06/13/21 06:12 06/13/21 06:12 Labs: Laboratory Results - last 24 hr 06/10/21 13:55: Miscellaneous Cytology SEE PATHOLOGY REPORT 06/13/21 06:12: WBC 13.1 H, RBC 3.67 L, Hgb 10.2 L, Hct 33.4 L, MCV 91.0, MCH 27.8, MCHC 30.5 L, RDW Std Deviation 54.4 H, RDW Coeff of Benjamin 16.5 H, Plt Count 440, MPV 9.8, Immature Gran % (Auto) 4.400 H, Neut % (Auto) 84.2 H, Lymph % (Auto) 7.7 L, [place] % (Auto) 3.5, Eos % (Auto) 0.0, Baso % (Auto) 0.2, Absolute Neuts (auto) 11.0 H, Absolute Lymphs (auto) 1.00, Nucleated RBC % 0 06/13/21 06:12: Sodium 140, Potassium 4.2, Chloride 102, Carbon Dioxide 33.0 H, Anion Gap 5, BUN 38 H, Creatinine 1.13, Estim Creat Clear Calc 89.62, Est GFR (MDRD) Af Amer 86, Est GFR (MDRD) Non-Af 71, BUN/Creatinine Ratio 33.6 H, Glucose 117 H, Calcium 9.7, Total Bilirubin 0.30, AST 28, ALT 95 H, Alkaline Phosphatase 63, Total Protein 6.5, Albumin 2.4 L, Globulin 4.1, Albumin/Globulin Ratio 0.6 L Micro: Microbiology 06/10/21 13:55 Fluid - Thoracentesis Fluid Gram Stain - Final 06/10/21 13:55 Fluid - Thoracentesis Fluid Body Fluid Culture - Preliminary No growth-Final to follow 06/10/21 13:55 Fluid - Thoracentesis Fluid Anaerobic Culture - Preliminary No growth in 48 hours. 06/07/21 12:02 Sputum, Expectorated/Coughed Gram Stain - Final 06/07/21 12:02 Sputum, Expectorated/Coughed Respiratory Culture - Final Presumptive C albicans 06/05/21 15:00 Blood Culture (Wb) - Right Wrist Blood Culture - Final No growth in 5 days. 06/05/21 14:37 Blood Culture (Wb) - Port Blood Culture - Final No growth in 5 days. 06/05/21 21:30 Urine, Clean Catch Legionella Antigen - Final 06/05/21 21:30 Urine, Clean Catch Streptococcus pneumoniae Antigen (M - Final Physical Exam Const alert and no apparent distress General Appearance: cooperative HEENT normocephalic and head/scalp atraumatic Eyes PERRL, EOMs intact bilaterally and conjunctivae normal Neck supple General: trachea midline Resp no use of accessory muscles Auscultation: diminished lung sounds; Negative for rales, rhonchi or wheezes Cardio regular rate and regular rhythm GI normal to inspection, nondistended, normoactive bowel sounds Extremity no clubbing, cyanosis or edema Skin no rashes or lesions noted Neuro CN's II-XII intact bilaterally and moves all extremities Psych cooperative and affect normal Charges/Coding Visit Charges Inpatient E&M: 70709 Subs Hosp L2
[2021-06-13] MEDS: Pravastatin 40 MG Tablet PO (16:56)
[2021-06-13] MEDS: Rivaroxaban 20 MG Tablet PO (16:56)
[2021-06-13] MEDS: 0.9% Saline Lock 10 ML Syringe IV (23:59)
[2021-06-14] VITALS (9 sets, daily range): BP systolic 150–154; BP diastolic 78–85; PULSE 50–84; RESP 14–20; TEMP 36.2–36.6; O2SAT 80–98
[2021-06-14 05:48] LABS: Absolute Lymphocyte Count 0.82 X10^3/uL (0.83-4.51); Absolute Neutrophil Count 9.4 X10^3/uL (2.0-7.7); Basophil# 0.02 X10^3/uL; Basophil% 0.2 % (0-1); Hematocrit 32.3 % (40-54); Hemoglobin 9.8 g/dL (13.0-16.5); Lymphocyte # 0.82 X10^3/ul (0.83-4.51); Lymphocyte % 7.4 % (19-41); Mean Corp Hgb Conc 30.3 g/dL (32-36); Mean Corpuscular Hgb 27.9 pg (27.0-32.0); Mean Platelet Vol. 9.7 fl (6.2-12.0); Monocyte# 0.38 X10^3/uL; Monocyte% 3.4 % (0-10); NRBC Flagged by Analyzer 0 % (0-5); Neutrophil # 9.44 X10^3/uL (2.7-7.7); Neutrophil % 84.9 % (47-70); Platelet Count 418 K/mm3 (150-450); RBC Distribution Width CV 16.9 % (11.6-14.6); RBC Distribution Width SD 55.3 fl (35.1-43.9); Red Blood Count 3.51 M/mm3 (4.6-6.2); White Blood Count 11.1 K/mm3 (4.4-11.0)
[2021-06-14 06:10] LABS: ALB/GLOB Ratio 0.6 RATIO (0.9-2.4); AST(SGOT) 21 U/L (15-37); Alanine Aminotransfer ALT/SGPT 82 U/L (16-61); Albumin, Serum 2.3 g/dL (3.2-5.0); Alkaline Phosphatase 61 U/L (45-117); Anion Gap 4 (5-15); BUN 40 mg/dL (7-18); BUN/Creat Ratio 37.4 RATIO (10-20); Calcium,Total 9.5 mg/dL (8.5-10.1); Chloride 101 mmol/L (98-107); Creatinine, Serum 1.07 mg/dL (0.70-1.30); EST Glomerular Filtration Rate 76 mL/min (>60); Est Glom Filt Rate - Afr Amer 92 mL/min (>60); Estimated Creatinine Clearance 94.64 ml/min; Globulin 3.8 g/dL (2.2-4.2); Glucose 122 mg/dL (74-106); Potassium 4.2 mmol/L (3.5-5.1); Protein, Total 6.1 g/dL (6.4-8.2); Sodium Level 139 mmol/L (136-145)
[2021-06-14] MEDS: 0.9% Saline Lock 10 ML Syringe IV ×2 (06:29→13:14)
[2021-06-14] MEDS: Ipratropium/Albuterol Sulfate 3 ML AMPUL.NEB INHALATION (07:07)
[2021-06-14] MEDS: FLUoxetine 20 MG Capsule 60 MG PO (09:13)
[2021-06-14] MEDS: Doxazosin 1 MG Tablet 2 MG PO (09:13)
[2021-06-14] MEDS: Metoprolol Tartrate 50 MG Tablet PO (09:13)
[2021-06-14] MEDS: Amiodarone 200 MG Tablet PO (09:14)
[2021-06-14] MEDS: Furosemide 40 MG Tablet PO (09:14)
--- NOTE | 2021-06-14 10:16 | CASEMGMT ---
Per therapy, pt does not need any further therapy. Pt does qualify for home oxygen 5L at rest and 6L w/ ambulation. [place] [facility] [place] [facility] [place]. CM to follow for any further discharge planning/needs. Pelon BARR CM
--- NOTE | 2021-06-14 10:38 | DCINST_ITS ---
Discharge Instructions Diet Discharge Diet: Low fat / Low cholesterol Activity Weight Bearing Status: Weight bearing as tolerated Additional Activity Instructions:: Avoid aggressive activity until oxygen weaned and re-evaluated by pulmonary medicine. Dressing / Incision Call your doctor if you observe: Fever of 101 or Higher, Shortness of breath, Dizziness, Fainting spells, Swelling in the ankles, Chest pain and Increased palpitations (irregular heartbeat) Follow Up Care Please Follow Up With: Primary care provider Test Results: Test results from this visit will be discussed in further detail at your follow-up appointment, if applicable. Discharge Plan Admission Admit Date/Time: 06/05/21 17:14 Primary Reason for Your Visit: Acute Resp Failure 2/2 Medication Pneumonitis, PAF w/ RVR, Poss CHF Attending Provider: Gayle Dallas Primary Care Provider: Lizzeth Velasquez Consulting Providers: Regan Schaefer ; Pee Castillo ; Carlitos Philip ; Amanda Rivero NP ; Cristiana Johnson Instructions Patient Instructions: ED Understanding Hypersensitivity Pneumonitis, What Is Heart Failure, What Is Atrial Flutter/Atrial Fibrillation?, Traveling with Oxygen, Using Oxygen Safely, Using Oxygen at Home, Understanding Atrial Fibrillation Additional Instructions / Restrictions: Atrial fibrillation with RVR (irregular heart rhythm): Please continue amiodarone, metoprolol and xarelto regimen. Follow-up with Dr. Schaefer as requested. Suspected Medication Induced Pneumonitis: Please continue the daily prednisone 40 mg until re-evaluation per Pulmonary at follow-up. Please also continue eval uation with Oncology who will discuss alternate treatment options with you at your visit. Continue oxygen supplementation until appropriate weaned per Pulmonary medicine. Concern for possible Heart Failure component: During the admission you were also placed on lengthy course of IV lasix medication eventually transitioned to oral regimen. Please continue this until your re-evaluation with Dr. Schaefer. Discharge Orders/Prescriptions Prescriptions: New pantoprazole [Protonix] 40 mg tablet,delayed release (DR/EC) 40 mg PO DAILY Qty: 30 RF: 0 prednisone 20 mg tablet 40 mg PO DAILY Qty: 60 RF: 0 metoprolol tartrate 50 mg tablet 50 mg PO BID Qty: 60 RF: 0 amiodarone 200 mg tablet 200 mg PO BID Qty: 60 RF: 0 furosemide 40 mg Tablet 40 mg PO DAILY 30 Days Qty: 30 RF: 0 Continued (DME) Disability Placard See Rx Instructions .Route .MEDSUPPLY Qty: 1 RF: 0 fluticasone propionate 1 SPRAY spray,suspension 2 spray NASAL DAILY PRN PRN (Reason: Nasal Congestion) RF: 0 ondansetron HCl 8 MG tablet 8 mg PO Q8H PRN PRN (Reason: Nausea) 30 Days Qty: 30 RF: 2 prochlorperazine maleate 10 MG tablet 10 mg PO Q6H PRN PRN (Reason: Nausea) 10 Days Qty: 30 RF: 2 cholecalciferol (vitamin D3) 1,250 mcg (50,000 unit) capsule 1,250 mcg PO SA RF: 0 budesonide-formoterol [Symbicort] 160-4.5 mcg/actuation HFA aerosol inhaler 2 puff INHALATION BID RF: 0 rivaroxaban 20 mg tablet 20 mg PO QDAY Qty: 30 RF: 12 tiotropium bromide 2.5 mcg/actuation mist 2 puff INHALATION DAILY Qty: 4 RF: 11 doxazosin 2 mg tablet 2 mg PO DAILY Qty: 90 RF: 3 albuterol sulfate 90 mcg/actuation aerosol powdr breath activated 2 inh INHALATION Q4H PRN PRN (Reason: Sob &/Or Wheezing) Qty: 1 RF: 6 fluoxetine 20 mg capsule 60 mg PO DAILY Qty: 270 RF: 1 polyethylene glycol 3350 17 gram powder in packet 17 g PO DAILY PRN (Reason: Constipation) 30 Days Qty: 30 RF: 1 pravastatin 40 mg tablet 40 mg PO DINNER Qty: 90 RF: 3 Referrals / Follow Up: Pee Castillo MD [STAFF PHYSICIAN] - 06/20/21 8:15 am Regan Schaefer MD [STAFF PHYSICIAN] - 06/26/21 1:00 pm Lizzeth Velasquez MD [Primary Care Provider] - None (Please follow-up with your primary care physician within 3-5 days to review prolonged complicated adm ission.) Disposition Disposition (needs filled in before D/C Order can be placed): Home Health Service
--- NOTE | 2021-06-14 10:44 | DS.PCM_ITS ---
Documented by User: Yesi Haynes NP, RETAIL LOSS PREVENTION OFFICER-C 06/14/21 10:59 Providers Date of Admission: 06/05/21 Date of Discharge: 06/14/21 Primary Care Physician: Dr. Lizzeth Velasquez MD Consultations 06/05/21 18:00 Consult: Cardiology Routine Consulting Provider: Regan Schaefer Reason for Consult: afib with rvr EMERGENT Consult: No MD Notified: Yes Date Notified: 06/05/21 Time Notified: 18:24 Method of Notification: Text Method of Consult:: In-Person 06/07/21 11:20 Consult: Business Practices Officer / Pulmonary Medicine Routine Consulting Provider: Pulmonary Medicine trina Munford Reason for Consult: resp failure EMERGENT Consult: No MD Notified: Yes Date Notified: 06/07/21 Time Notified: 11:20 Method of Notification: Text 06/11/21 07:12 Consult: Oncology/Hematology Routine Consulting Provider: Cristiana Johnson Reason for Consult: Hypoxia, PNA, Lung CA w/ ongoing treatments EMERGENT Consult: No MD Notified: Yes Date Notified: 06/11/21 Time Notified: 07:12 Method of Notification: Verbal Comments:: spoke with Lo Bird Reason For Visit: PNEUMONIA, SEPSIS Diagnosis Discharge Diagnosis (1) Acute respiratory failure with hypoxia: Status: Resolved Code(s): J96.01 - Acute respiratory failure with hypoxia Medications at Discharge Home Medications fluticasone propionate 2 spray NASAL DAILY PRN PRN 04/11/16 rivaroxaban 20 mg tablet 20 mg PO QDAY #30 tablet 04/17/20 tiotropium bromide 2.5 mcg/actuation mist for inhalation 2 puff INHALATION DAILY #4 gm 07/25/20 ondansetron HCl 8 mg PO Q8H PRN PRN 30 Days #30 tablet 08/23/20 prochlorperazine maleate 10 mg PO Q6H PRN PRN 10 Days #30 tablet 08/23/20 doxazosin 2 mg tablet 2 mg PO DAILY #90 tablet 12/27/20 albuterol sulfate 90 mcg/actuation breath activated powder inhaler 2 inh INHALATION Q4H PRN PRN #1 each 01/21/21 fluoxetine 20 mg capsule 60 mg PO DAILY #270 cap 02/05/21 Disability Placard #1 ea 03/11/21 polyethylene glycol 3350 17 gram oral powder packet 17 g PO DAILY PRN 30 Days #30 packet 05/02/21 pravastatin 40 mg tablet 40 mg PO DINNER #90 tablet 05/02/21 budesonide-formoterol [Symbicort] 2 puff INHALATION BID 06/05/21 cholecalciferol (vitamin D3) 1,250 mcg PO SA 06/05/21 amiodarone 200 mg PO BID #60 tab 06/12/21 furosemide 40 mg PO DAILY 30 Days #30 tab 06/12/21 metoprolol tartrate 50 mg PO BID #60 tab 06/12/21 pantoprazole [Protonix] 40 mg PO DAILY #30 tab 06/12/21 prednisone 40 mg PO DAILY #60 tab 06/12/21 Hospital Course Operations None Procedures 2-D Echocardiogram and Thoracentesis Summary of Care Provided Minutes Spent on Discharge: 35 Hospital Course: Patient is a 55-year-old male admitted 06/05/21 due to shortness of breath. 1. Acute hypoxic respiratory failure, multifactorial secondary to medication induced pneumonitis, atrial fibrillation with RVR, small cell lung cancer with associated pleural effusions, and acute heart failure with preserved ejection fraction-status post diagnostic and therapeutic thoracentesis 06/10/2021. IV Tomasa u-Medrol during admission. Completed course of IV antibiotics. Respiratory panel negative. Sputum culture unremarkable. Blood cultures no growth. Discharged on prednisone 40 mg daily until further pulmonary follow-up. Patient ambulated day of discharge and oxygen remained 90% on 6 L nasal cannula. Patient will require 6 L at rest and with ambulation. He is ambulatory in the home. Encouraged patient to obtain a pulse oximeter to monitor oxygen levels at home. Follow-up with pulmonary medicine as scheduled 06/20/2021. 2. Acute heart failure with preserved ejection fraction-echocardiogram 06/06/21 demonstrates an EF of 55%. Further IV Lasix discontinued. Continue oral Lasix regimen. 3. Persistent atrial fibrillation with RVR-cardiology consulted during admission. Initially on Cardizem drip on admission. Now stable. Continue metoprolol, amiodarone. On Xarelto. 4. Metastatic small cell lung cancer, stage IIIb-with recurrent malignant pleural effusions. Following with Dr. Johnson. 5. Hypertension-stable, continue with doxazosin, metoprolol, Lasix. 6. Hyperlipidemia-continue statin. 7. Anxiety/depression-on fluoxetine. 8. ALEX-on BiPAP nightly. 9. Chronic COPD-continue as needed albuterol aerosols. 10. History of tobacco use-in remission. Physical Exam Const alert, oriented x3 and no apparent distress Orientation / Consciousness: awake, oriented to person, oriented to place and oriented to time HEENT normocephalic and moist oral mucous membranes Eyes PERRL, EOMs intact bilaterally and conjunctivae normal Neck no lymphadenopathy Resp clear to auscultation bilaterally Auscultation: diminished lung sounds Cardio regular rate, regular rhythm and no murmurs Peripheral Pulses: pulses 2+ throughout GI normal to inspection, nondistended, normoactive bowel sounds, non-tender and non-distended Extremity normal to inspection Skin no rashes or lesions noted Lesions: no lesions Rashes: no rashes Trauma: no lacerations or abrasions Neuro CN's II-XII intact bilaterally, no focal motor deficits, no sensory deficits noted and deep tendon reflexes 2+ bilaterally Psych mental status grossly normal and affect normal Patient seen and examined prior to discharge. Physical assessment as noted above. Patient is stable for discharge with follow up recommendations as noted above. This patient was seen by ROBERT Torres under the supervision of Dr. Dallas. Weight / BMI Weight Weight: 275 lb 0.003 oz Body Mass Index (BMI) 33.5 ABG / Lab / Microbiology Data Result Diagrams: 06/14/21 05:18 06/14/21 05:18 Laboratory: Laboratory Results - last 24 hr 06/14/21 05:18: WBC 11.1 H, RBC 3.51 L, Hgb 9.8 L, Hct 32.3 L, MCV 92.0, MCH 27.9, MCHC 30.3 L, RDW Std Deviation 55.3 H, RDW Coeff of Benjamin 16.9 H, Plt Count 418, MPV 9.7, Immature Gran % (Auto) 4.100 H, Neut % (Auto) 84.9 H, Lymph % (Auto) 7.4 L, [place] % (Auto) 3.4, Eos % (Auto) 0.0, Baso % (Auto) 0.2, Absolute Neuts (auto) 9.4 H, Absolute Lymphs (auto) 0.82 L, Nucleated RBC % 0 06/14/21 05:18: Sodium 139, Potassium 4.2, Chloride 101, Carbon Dioxide 34.0 H, Anion Gap 4 L, BUN 40 H, Creatinine 1.07, Estim Creat Clear Calc 94.64, Est GFR (MDRD) Af Amer 92, Est GFR (MDRD) Non-Af 76, BUN/Creatinine Ratio 37.4 H, Glucose 122 H, Calcium 9.5, Total Bilirubin 0.40, AST 21, ALT 82 H, Alkaline Phosphatase 61, Total Protein 6.1 L, Albumin 2.3 L, Globulin 3.8, Albumin/Globulin Ratio 0.6 L Microbiology: Microbiology 06/10/21 13:55 Fluid - Thoracentesis Fluid Gram Stain - Final 06/10/21 13:55 Fluid - Thoracentesis Fluid Body Fluid Culture - Final Culture exhibits no growth. 06/10/21 13:55 Fluid - Thoracentesis Fluid Anaerobic Culture - Preliminary No growth in 48 hours. 06/07/21 12:02 Sputum, Expectorated/Coughed Gram Stain - Final 06/07/21 12:02 Sputum, Expectorated/Coughed Respiratory Culture - Final Presumptive C albicans 06/05/21 15:00 Blood Culture (Wb) - Right Wrist Blood Culture - Final No growth in 5 days. 06/05/21 14:37 Blood Culture (Wb) - Port Blood Culture - Final No growth in 5 days. 06/05/21 21:30 Urine, Clean Catch Legionella Antigen - Final 06/05/21 21:30 Urine, Clean Catch Streptococcus pneumoniae Antigen (M - Final D/C Instructions Discharge Diet: Low fat / Low cholesterol Weight Bearing Status: Weight bearing as tolerated Additional Activity Instructions: Avoid aggressive activity until oxygen weaned and re-evaluated by pulmonary medicine. Call your doctor if you observe: Fever of 101 or Higher, Shortness of breath, Dizziness, Fainting spells, Swelling in the ankles, Chest pain and Increased palpitations (irregular heartbeat) Please Follow Up With: Primary care provider When: Within the next two weeks. Meaningful Use Info Meaningful Use Diagnoses (Choose all that apply): None applicable Discharge Plan Admission Admit Date/Time: 06/05/21 17:14 Primary Reason for Your Visit: Acute Resp Failure 2/2 Medication Pneumonitis, PAF w/ RVR, Poss CHF Attending Provider: Gayle Dallas Primary Care Provider: Lizzeth Velasquez Consulting Providers: Regan Schaefer ; Pee Castillo ; Carlitos Philip ; Amanda Rivero RETAIL LOSS PREVENTION OFFICER ; Cristiana Johnson Instructions Patient Instructions: ED Understanding Hypersensitivity Pneumonitis, What Is Heart Failure, What Is Atrial Flutter/Atrial Fibrillation?, Traveling with Oxygen, Using Oxygen Safely, Using Oxygen at Home, Understanding Atrial Fibrillation Additional Instructions / Restrictions: Patient Problems: Altered Health Status related to Hospitalization Patient Goals: *Optimal Level of Health *Keep Appointments *Medication Compliance *Remain SafeAtrial fibrillation with RVR (irregular heart rhythm): Please continue amiodarone, metoprolol and xarelto regimen. Follow-up with Dr. Schaefer as requested. Suspected Medication Induced Pneumonitis: Please continue the daily prednisone 40 mg until re-evaluation per Pulmonary at follow-up. Please also continue evaluation with Oncology who will discuss alternate treatment options with you at your visit. Continue oxygen supplementation until appropriate weaned per Pulmonary medicine. Concern for possible Heart Failure component: During the admission you were also placed on lengthy course of IV lasix medication eventually transitioned to oral regimen. Please continue this until your re-evaluation with Dr. Schaefer. Discharge Orders/Prescriptions Prescriptions: New pantoprazole [Protonix] 40 mg tablet,delayed release (DR/EC) 40 mg PO DAILY Qty: 30 RF: 0 prednisone 20 mg tablet 40 mg PO DAILY Qty: 60 RF: 0 metoprolol tartrate 50 mg tablet 50 mg PO BID Qty: 60 RF: 0 amiodarone 200 mg tablet 200 mg PO BID Qty: 60 RF: 0 furosemide 40 mg Tablet 40 mg PO DAILY 30 Days Qty: 30 RF: 0 Continued (DME) Disability Placard See Rx Instructions .Route .MEDSUPPLY Qty: 1 RF: 0 fluticasone propionate 1 SPRAY spray,suspension 2 spray NASAL DAILY PRN PRN (Reason: Nasal Congestion) RF: 0 ondansetron HCl 8 MG tablet 8 mg PO Q8H PRN PRN (Reason: Nausea) 30 Days Qty: 30 RF: 2 prochlorperazine maleate 10 MG tablet 10 mg PO Q6H PRN PRN (Reason: Nausea) 10 Days Qty: 30 RF: 2 cholecalciferol (vitamin D3) 1,250 mcg (50,000 unit) capsule 1,250 mcg PO SA RF: 0 budesonide-formoterol [Symbicort] 160-4.5 mcg/actuation HFA aerosol inhaler 2 puff INHALATION BID RF: 0 rivaroxaban 20 mg tablet 20 mg PO QDAY Qty: 30 RF: 12 tiotropium bromide 2.5 mcg/actuation mist 2 puff INHALATION DAILY Qty: 4 RF: 11 doxazosin 2 mg tablet 2 mg PO DAILY Qty: 90 RF: 3 albuterol sulfate 90 mcg/actuation aerosol powdr breath activated 2 inh INHALATION Q4H PRN PRN (Reason: Sob &/Or Wheezing) Qty: 1 RF: 6 fluoxetine 20 mg capsule 60 mg PO DAILY Qty: 270 RF: 1 polyethylene glycol 3350 17 gram powder in packet 17 g PO DAILY PRN (Reason: Constipation) 30 Days Qty: 30 RF: 1 pravastatin 40 mg tablet 40 mg PO DINNER Qty: 90 RF: 3 Referrals / Follow Up: Pee Castillo MD [STAFF PHYSICIAN] - 06/20/21 8:15 am Regan Schaefer MD [STAFF PHYSICIAN] - 06/26/21 1:00 pm Lizzeth Velasquez MD [Primary Care Provider] - 06/18/21 1:30 pm (Please follow-up with your primary care physician within 3-5 days to review prolonged complicated admission. Your follow up appointment is with [facility] They are also keeping your June appointment.) Disposition Disposition (needs filled in before D/C Order can be placed): Home Health Service Documented by User: Dr. Gayle Dallas MD 06/14/21 13:35 Providers Date of Admission: 06/05/21 Reason For Visit: PNEUMONIA, SEPSIS Medications at Discharge Home Medications fluticasone propionate 2 spray NASAL DAILY PRN PRN 04/11/16 rivaroxaban 20 mg tablet 20 mg PO QDAY #30 tablet 04/17/20 tiotropium bromide 2.5 mcg/actuation mist for inhalation 2 puff INHALATION DAILY #4 gm 07/25/20 ondansetron HCl 8 mg PO Q8H PRN PRN 30 Days #30 tablet 08/23/20 prochlorperazine maleate 10 mg PO Q6H PRN PRN 10 Days #30 tablet 08/23/20 doxazosin 2 mg tablet 2 mg PO DAILY #90 tablet 12/27/20 albuterol sulfate 90 mcg/actuation breath activated powder inhaler 2 inh INHALATION Q4H PRN PRN #1 each 01/21/21 fluoxetine 20 mg capsule 60 mg PO DAILY #270 cap 02/05/21 Disability Placard #1 ea 03/11/21 polyethylene glycol 3350 17 gram oral powder packet 17 g PO DAILY PRN 30 Days #30 packet 05/02/21 pravastatin 40 mg tablet 40 mg PO DINNER #90 tablet 05/02/21 budesonide-formoterol [Symbicort] 2 puff INHALATION BID 06/05/21 cholecalciferol (vitamin D3) 1,250 mcg PO SA 06/05/21 amiodarone 200 mg PO BID #60 tab 06/12/21 furosemide 40 mg PO DAILY 30 Days #30 tab 06/12/21 metoprolol tartrate 50 mg PO BID #60 tab 06/12/21 pantoprazole [Protonix] 40 mg PO DAILY #30 tab 06/12/21 prednisone 40 mg PO DAILY #60 tab 06/12/21 ABG / Lab / Microbiology Data Result Diagrams: 06/14/21 05:18 06/14/21 05:18 Discharge Plan Admission Admit Date/Time: 06/05/21 17:14 Primary Reason for Your Visit: Acute Resp Failure 2/2 Medication Pneumonitis, PAF w/ RVR, Poss CHF Attending Provider: Gayle Dallas Primary Care Provider: Lizzeth Velasquez Consulting Providers: Regan Schaefer ; Pee Castillo ; Carlitos Philip ; Scott Rivero RETAIL LOSS PREVENTION OFFICER ; Cristiana Johnson Instructions Patient Instructions: ED Understanding Hypersensitivity Pneumonitis, What Is Heart Failure, What Is Atrial Flutter/Atrial Fibrillation?, Traveling with Oxygen, Using Oxygen Safely, Using Oxygen at Home, Understanding Atrial Fibrillation Additional Instructions / Restrictions: Patient Problems: Altered Health Status related to Hospitalization Patient Goals: *Optimal Level of Health *Keep Appointments *Medication Compliance *Remain SafeAtrial fibrillation with RVR (irregular heart rhythm): Please continue amiodarone, metoprolol and xarelto regimen. Follow-up with Dr. Schaefer as requested. Suspected Medication Induced Pneumonitis: Please continue the daily prednisone 40 mg until re-evaluation per Pulmonary at follow-up. Please also continue evaluation with Oncology who will discuss alternate treatment options with you at your visit. Continue oxygen supplementation until appropriate weaned per Pulmonary medicine. Concern for possible Heart Failure component: During the admission you were also placed on lengthy course of IV lasix medication eventually transitioned to oral regimen. Please continue this until your re-evaluation with Dr. Schaefer. Discharge Orders/Prescriptions Prescriptions: New pantoprazole [Protonix] 40 mg tablet,delayed release (DR/EC) 40 mg PO DAILY Qty: 30 RF: 0 prednisone 20 mg tablet 40 mg PO DAILY Qty: 60 RF: 0 metoprolol tartrate 50 mg tablet 50 mg PO BID Qty: 60 RF: 0 amiodarone 200 mg tablet 200 mg PO BID Qty: 60 RF: 0 furosemide 40 mg Tablet 40 mg PO DAILY 30 Days Qty: 30 RF: 0 Continued (DME) Disability Placard See Rx Instructions .Route .MEDSUPPLY Qty: 1 RF: 0 fluticasone propionate 1 SPRAY spray,suspension 2 spray NASAL DAILY PRN PRN (Reason: Nasal Congestion) RF: 0 ondansetron HCl 8 MG tablet 8 mg PO Q8H PRN PRN (Reason: Nausea) 30 Days Qty: 30 RF: 2 prochlorperazine maleate 10 MG tablet 10 mg PO Q6H PRN PRN (Reason: Nausea) 10 Days Qty: 30 RF: 2 cholecalciferol (vitamin D3) 1,250 mcg (50,000 unit) capsule 1,250 mcg PO SA RF: 0 budesonide-formoterol [Symbicort] 160-4.5 mcg/actuation HFA aerosol inhaler 2 puff INHALATION BID RF: 0 rivaroxaban 20 mg tablet 20 mg PO QDAY Qty: 30 RF: 12 tiotropium bromide 2.5 mcg/actuation mist 2 puff INHALATION DAILY Qty: 4 RF: 11 doxazosin 2 mg tablet 2 mg PO DAILY Qty: 90 RF: 3 albuterol sulfate 90 mcg/actuation aerosol powdr breath activated 2 inh INHALATION Q4H PRN PRN (Reason: Sob &/Or Wheezing) Qty: 1 RF: 6 fluoxetine 20 mg capsule 60 mg PO DAILY Qty: 270 RF: 1 polyethylene glycol 3350 17 gram powder in packet 17 g PO DAILY PRN (Reason: Constipation) 30 Days Qty: 30 RF: 1 pravastatin 40 mg tablet 40 mg PO DINNER Qty: 90 RF: 3 Referrals / Follow Up: Pee Castillo MD [STAFF PHYSICIAN] - 06/20/21 8:15 am Regan Schaefer MD [STAFF PHYSICIAN] - 06/26/21 1:00 pm Lizzeth Velasquez MD [Primary Care Provider] - 06/18/21 1:30 pm (Please follow-up with your primary care physician within 3-5 days to review prolonged complicated admission. Your follow up appointment is with [facility] N.P. They are also keeping your June appointment.) Disposition Disposition (needs filled in before D/C Order can be placed): Home Health Service
[2021-06-14] MEDS: Acetaminophen 325 MG Tablet 650 MG PO (10:53)
[2021-06-14] MEDS: Calcium Carbonate 500 MG Tablet 1000 MG PO (11:06)
--- NOTE | 2021-06-14 11:16 | CASEMGMT ---
This RN CM to room to discuss discharge plan. Pt states no need for any further therapy and is aware of the the need for home oxygen, 5L at rest and 6L with exertion. Pt already has cpap thru [employer] and will need 5L bleed in as well. CM to follow for any further discharge planning/needs. S[place]en CORTNEY CM
--- NOTE | 2021-06-14 12:06 | PHA.DC.MC ---
Pharmacy Service has performed discharge medication reconciliation and counseling for this patient. 1. AMIODARONE 200MG PO BID 2. FUROSEMIDE 40MG PO DAILY 3. METOPROLOL TARTRATE 50MG PO BID 4. PANTOPRAZOLE 40MG PO DAILY 5. PREDNISONE 40MG PO DAILY (UNTIL PULMONOLOGY FOLLOW-UP) The patient's discharge medication list was reviewed for discrepancies and discrepancies were resolved. Home Medications fluticasone propionate 2 spray NASAL DAILY PRN PRN 04/11/16 rivaroxaban 20 mg tablet 20 mg PO QDAY #30 tablet 04/17/20 tiotropium bromide 2.5 mcg/actuation mist for inhalation 2 puff INHALATION DAILY #4 gm 07/25/20 ondansetron HCl 8 mg PO Q8H PRN PRN 30 Days #30 tablet 08/23/20 prochlorperazine maleate 10 mg PO Q6H PRN PRN 10 Days #30 tablet 08/23/20 doxazosin 2 mg tablet 2 mg PO DAILY #90 tablet 12/27/20 albuterol sulfate 90 mcg/actuation breath activated powder inhaler 2 inh INHALATION Q4H PRN PRN #1 each 01/21/21 fluoxetine 20 mg capsule 60 mg PO DAILY #270 cap 02/05/21 Disability Placard #1 ea 03/11/21 polyethylene glycol 3350 17 gram oral powder packet 17 g PO DAILY PRN 30 Days #30 packet 05/02/21 pravastatin 40 mg tablet 40 mg PO DINNER #90 tablet 05/02/21 budesonide-formoterol [Symbicort] 2 puff INHALATION BID 06/05/21 cholecalciferol (vitamin D3) 1,250 mcg PO SA 06/05/21 amiodarone 200 mg PO BID #60 tab 06/12/21 furosemide 40 mg PO DAILY 30 Days #30 tab 06/12/21 metoprolol tartrate 50 mg PO BID #60 tab 06/12/21 pantoprazole [Protonix] 40 mg PO DAILY #30 tab 06/12/21 prednisone 40 mg PO DAILY #60 tab 06/12/21 The patient was counseled on the following discharge medications and changes in medications for homegoing were reviewed. The Reason for Use, instructions for use, and potential side effects were reviewed for all new medications. The patient's questions regarding all of their medications were answered. The patient was able to verbally demonstrate an understanding of their discharge medications.
--- NOTE | 2021-06-14 12:19 | PN.CC_ITS ---
Assessment & Plan Assessment/Plan (1) Acute respiratory failure with hypoxia: PLAN: RECOMMENDATIONS: 1. Continue to wean supplemental oxygen as tolerated. 2. Continue steroids. 3. Continue gentle diuresis as tolerated by renal function. 4. Encourage incentive spirometer use and mobilize patient as tolerated. 5. Continue noninvasive positive pressure ventilatory support as needed. 6. At discharge, I would recommend that the patient be placed on 40 mg daily of prednisone. He will likely require a prolonged taper over the course of the next 6 weeks. He should follow-up in the pulmonary medicine clinic 2 weeks after discharge. Recommend performing a walking oximetry study prior to consideration for discharge home. Agree that once the patient is able to ambulate on 6 L/min or less of oxygen he can be discharged home. IMPRESSIONS: 1. Acute hypoxemic respiratory failure Clinical concern for multifactorial etiology, including atrial fibrillation with RVR, congestive heart failure and possible medication induced pneumonitis. The patient's cancer immunotherapy has also been associated with pleural effusion formation. The patient was previously being treated with Tecentriq, which has been known to cause pneumonitis. It is reasonable to continue IV steroid therapy accordingly. Continue to wean supplemental oxygen as tolerated to maintain saturations at or above 90%. Encourage incentive spirometer use and mobilize patient as tolerated. 2. History of atrial fibrillation with RVR/chronic heart failure with preserved ejection fraction The patient was noted to be in atrial fibrillation with RVR on presentation, but is currently rate controlled. Cardiology is currently following. Continue current medical management. 3. History of small cell lung cancer The patient is currently on treatment with atezolizumab. The findings noted on his chest imaging, including the pleural effusion may be secondary to the aforementioned medication. Recommend continuing steroid therapy as ordered. 4. Obesity/hypertension/hyperlipidemia/anxiety/depression Complicates care, management, recovery and prognosis. Continue home medications as indicated. This note was generated with [employer] dictation software. It may contain incorrect words, spelling, and punctuation that were not noted in checking the note before signing. Subjective Subjective The patient was seen and examined at the bedside this morning. Events from the last 24 hours have been reviewed. The patient is currently afebrile, hemodynamically stable and maintaining appropriate oxygen saturations on 5 L/min via nasal cannula. The patient was able to ambulate in the hallway today and maintain appropriate oxygen saturations on 6 L/min via nasal cannula. Objective Data Objective Data The patient's most recent lab work, culture data and imaging studies have all been personally reviewed. Surface echocardiogram revealed normal LV size and function with an ejection fraction of 55%. Coronavirus PCR was negative. Blo od, urine and sputum cultures have shown no growth to date. Vital Signs: Vital Signs Temp Pulse Resp BP Pulse Ox 97.2 F L 50 L 20 H 154/78 H 87 06/14/21 09:08 06/14/21 09:13 06/14/21 09:08 06/14/21 09:08 06/14/21 09:42 Oxygen Flow Rate (L/min) [1 ( 5 Initial Baseline)] Oxygen Flow Rate (L/min) [At 4 REST with Oxygen] Oxygen Flow Rate (L/min) [ 6 AMBULATING with Oxygen #2] Oxygen Flow Rate (L/min) [ 5 AMBULATING with Oxygen #1] Oxygen Flow Rate (L/min) 5 Oxygen Delivery Method [2] Room Air Oxygen Delivery Method [1 ( Nasal Cannula Initial Baseline)] Oxygen Delivery Method Nasal Cannula Weight: 124.738 kg Body Mass Index (BMI) 33.5 Intake & Output: Intake and Output for Last 24 Hours 06/12/21 06/13/21 06/14/21 23:59 23:59 23:59 Intake Total 1200 / 1200 240 / 480 480 / 480 Output Total 1875 / 1875 1200 / 1200 650 / 650 Balance -675 / -675 -960 / -720 -170 / -170 Lab / Micro Data Attestation: I reviewed the patient's lab results. Result Diagrams: 06/14/21 05:18 06/14/21 05:18 Labs: Laboratory Results - last 24 hr 06/14/21 05:18: WBC 11.1 H, RBC 3.51 L, Hgb 9.8 L, Hct 32.3 L, MCV 92.0, MCH 27.9, MCHC 30.3 L, RDW Std Deviation 55.3 H, RDW Coeff of Benjamin 16.9 H, Plt Count 418, MPV 9.7, Immature Gran % (Auto) 4.100 H, Neut % (Auto) 84.9 H, Lymph % (Auto) 7.4 L, [place] % (Auto) 3.4, Eos % (Auto) 0.0, Baso % (Auto) 0.2, Absolute Neuts (auto) 9.4 H, Absolute Lymphs (auto) 0.82 L, Nucleated RBC % 0 06/14/21 05:18: Sodium 139, Potassium 4.2, Chloride 101, Carbon Dioxide 34.0 H, Anion Gap 4 L, BUN 40 H, Creatinine 1.07, Estim Creat Clear Calc 94.64, Est GFR (MDRD) Af Amer 92, Est GFR (MDRD) Non-Af 76, BUN/Creatinine Ratio 37.4 H, Glucose 122 H, Calcium 9.5, Total Bilirubin 0.40, AST 21, ALT 82 H, Alkaline Phosphatase 61, Total Protein 6.1 L, Albumin 2.3 L, Globulin 3.8, Album in/Globulin Ratio 0.6 L Micro: Microbiology 06/10/21 13:55 Fluid - Thoracentesis Fluid Gram Stain - Final 06/10/21 13:55 Fluid - Thoracentesis Fluid Body Fluid Culture - Final Culture exhibits no growth. 06/10/21 13:55 Fluid - Thoracentesis Fluid Anaerobic Culture - Preliminary No growth in 48 hours. 06/07/21 12:02 Sputum, Expectorated/Coughed Gram Stain - Final 06/07/21 12:02 Sputum, Expectorated/Coughed Respiratory Culture - Final Presumptive C albicans 06/05/21 15:00 Blood Culture (Wb) - Right Wrist Blood Culture - Final No growth in 5 days. 06/05/21 14:37 Blood Culture (Wb) - Port Blood Culture - Final No growth in 5 days. 06/05/21 21:30 Urine, Clean Catch Legionella Antigen - Final 06/05/21 21:30 Urine, Clean Catch Streptococcus pneumoniae Antigen (M - Final Physical Exam Const alert and no apparent distress General Appearance: cooperative HEENT normocephalic and head/scalp atraumatic Eyes PERRL, EOMs intact bilaterally and conjunctivae normal Neck supple General: trachea midline Resp no use of accessory muscles Auscultation: diminished lung sounds; Negative for rales, rhonchi or wheezes Cardio regular rate and regular rhythm GI normal to inspection, nondistended, normoactive bowel sounds Extremity no clubbing, cyanosis or edema Skin no rashes or lesions noted Neuro CN's II-XII intact bilaterally and moves all extremities Psych cooperative and affect normal Charges/Coding Visit Charges Inpatient E&M: 26311 Subs Hosp L2
--- NOTE | 2021-06-17 14:31 | CASEMGMT ---
CORTNEY MORA Discharge Follow-up Phone Call: TONNY: Bart Strata: 4 Call Date: 06/17/21 Discharge Date: 06/14/21 Time of Call: 1430 Duration: 3 min Admitting Diagnosis: Pneumonia, sepsis CORTNEY MORA completed follow-up phone call after recent hospitalization. Patient states he is doing well. States he is breathing well and wearing his oxygen. Patient has no questions or concerns regarding discharge instructions. Patient was able to fill prescriptions without any issues. Patient states he has follow-up appts scheduled. Patient has no further concerns at this time.
== END 2021-06-14 13:32 | disposition home health service (06) | DRG 143 ==
LOC: ED 15:55 → PCU 17:23
PROVIDERS: Nurse Practitioner Family; Physician Assistant; Emergency Provider Emergency Medicine; PCP Internal Medicine; Visit Provider Family Medicine
DX: J70.0 Acute pulmonary manifestations due to radiation (principal); J96.01 Acute respiratory failure with hypoxia; C34.11 Malignant neoplasm of upper lobe, right bronchus or lung; J91.0 Malignant pleural effusion; C77.9 Secondary and unspecified malignant neoplasm of lymph node, unspecified; D61.810 Antineoplastic chemotherapy induced pancytopenia; T45.1X5A Adverse effect of antineoplastic and immunosuppressive drugs, initial encounter; Y92.9 Unspecified place or not applicable; E11.9 Type 2 diabetes mellitus without complications; I11.0 Hypertensive heart disease with heart failure; I50.31 Acute diastolic (congestive) heart failure; I48.19 Other persistent atrial fibrillation; E66.9 Obesity, unspecified; E78.5 Hyperlipidemia, unspecified; F17.200 Nicotine dependence, unspecified, uncomplicated; E44.1 Mild protein-calorie malnutrition; F31.9 Bipolar disorder, unspecified; F41.9 Anxiety disorder, unspecified; G47.33 Obstructive sleep apnea (adult) (pediatric); J44.9 Chronic obstructive pulmonary disease, unspecified; G43.909 Migraine, unspecified, not intractable, without status migrainosus; J45.40 Moderate persistent asthma, uncomplicated; K21.9 Gastro-esophageal reflux disease without esophagitis; F12.90 Cannabis use, unspecified, uncomplicated; K59.09 Other constipation; Z68.33 Body mass index [BMI] 33.0-33.9, adult; Z79.01 Long term (current) use of anticoagulants; Z79.899 Other long term (current) drug therapy
CPT/HCPCS: 32555; 36415; 36591; 71045; 71046; 71275; 80048; 80053; 80202; 82945; 83605; 83615; 83735; 83880; 84156; 84157; 84484; 85025; 85610; 85730; 87040; 87070; 87075; 87205; 87449; 87635; 88108; 88305; 88313; 93005; 93306; 94003; 94640; 94660; 94667; 94668; 94762; 97161; 97162; 97166; 97802; 97803; 99251; 99284; J7030; J7040; Q9957; Q9967; U0005; A4216; C8929; G0463; J1940; J2405; J3490; U0003

== ENCOUNTER → 2021-07-04 13:09 | Outpatient (CLI) | payer MEDICAID, SELFPAY ==
[2021-06-14 10:52] VITALS: BMI 33.7
[2021-06-18 13:41] VITALS: BMI 32.8
[2021-06-27 05:34] VITALS: BMI 33.3
[2021-07-04] MEDS: 0.9% Saline Lock 10 ML Syringe IV ×2 (13:30→13:45)
--- NOTE | 2021-07-04 13:34 | CT_ITS ---
STUDY: CT CHEST T ABDOMEN WITH CONTRAST REASON FOR EXAM: Male, 55 years old. Assess for progressive disease, small cell lung cancer RADIATION DOSAGE (If Supplied By Facility): CTDIvol = ( 26.50 ) mGy, DLP = ( 1916.56 ) mGycm TECHNIQUE: Transaxial imaging was performed following intravenous administration of IV 100mL Isovue-300. Multiplanar coronal and sagittal images were reformatted. Individualized dose optimization techniques were used for this CT. COMPARISON: 07/04/2021 FINDINGS: CHEST Left chest port stable. Stable chronic volume loss in the right hemithorax. Stable multifocal interstitial fibrosis with generalized volume loss of the right hemithorax, stable. No discrete focal mass/nodule. Stable small right pleural effusion with loculated fluid in the lateral aspect of the right hemithorax, mildly smaller since the prior study with small locules of air suggesting intervening intervention/thoracentesis. The left lung is clear and hyperexpanded. There are calcifications of the coronary arteries. Heart size is stable. Stable mediastinal lymph nodes without dominant kristin mass. Normal hilar regions. Normal unenhanced pulmonary arteries. Atherosclerotic calcific plaques of the aortic arch. There are multi-level degenerative changes of the thoracic spine. ABDOMEN No hepatic masses. Gallbladder is partially contracted. Normal spleen. Normal pancreas. Normal bilateral adrenal glands. Normal right kidney. Normal left kidney. Normal visualized stomach. Normal visualized small intestine. Normal visualized colon. There is non-visualization of the appendix. There is diffuse atherosclerotic calcification of the abdominal aorta and its major visceral branches, without a demonstrated aneurysm. Normal inferior vena cava. Normal retroperitoneum. Normal abdominal wall. There are diffuse degenerative changes of the visualized lumbar spine. CT/CT Chest AND Abd W/ Contrast IMPRESSION: 1. Since 03/22/2021, overall stable (other than intervening right thoracentesis with residual loculated pleural air). Electronically Signed: Wilfred Burgess MD ([place]) at 18:11 EDT , Service support ,
== END ==
PROVIDERS: PCP Internal Medicine; Referring Provider Nurse Practitioner Family; Visit Provider Nurse Practitioner Family
DX: C34.11 Malignant neoplasm of upper lobe, right bronchus or lung (principal)
CPT/HCPCS: 71260; 74160; Q9967; A4216

== ENCOUNTER 2021-08-13 09:14 | Inpatient (IN) | payer MEDICAID, SELFPAY ==
[2021-06-14 10:52] VITALS: BMI 33.7
[2021-08-13] VITALS (13 sets, daily range): BP systolic 115–132; BP diastolic 69–92; PULSE 62–97; RESP 11–22; TEMP 35.9–36.9; O2SAT 92–97; BMI 37.0; BMI 35.9
--- NOTE | 2021-08-13 09:32 | EKG12_ITS ---
Test Reason : SOB Blood Pressure : / mmHG Vent. Rate : 075 BPM Atrial Rate : 170 BPM P-R Int : 000 ms QRS Dur : 090 ms QT Int : 384 ms P-R-T Axes : 000 -15 069 degrees QTc Int : 428 ms Atrial fibrillation with premature ventricular or aberrantly conducted complexes ST & T wave abnormality, consider lateral ischemia Abnormal ECG Confirmed by TOMAS BARKLEY, ANDREY ([id number]), associate entertainment editor SARY OLIVO ([id number]) on 08/14/2021 1:21:20 PM Referred By: RADHA/ESTEBAN Confirmed By:ANDREY MARIN MD
--- NOTE | 2021-08-13 09:33 | CT_ITS ---
STUDY: CTA CHEST REASON FOR EXAM: Male, 55 years old. Dyspnea RADIATION DOSAGE (If Supplied By Facility): CTDIvol = ( 12.66 ) mGy, DLP = ( 503.34 ) mGycm TECHNIQUE: The examination was performed with the intravenous administration of IV 100mL Isovue-370. Post-processing of the angiographic images was performed, with multiplanar reformation and 3D reconstruction. Individualized dose optimization techniques were used for this CT. COMPARISON: 07/04/2021 FINDINGS: Left internal jugular chest port. Normal enhancement of the main pulmonary artery and right and left pulmonary arteries. Normal enhancement of the bilateral peripheral pulmonary arteries. There is no demonstrated pulmonary embolism. Normal thoracic aorta and visualized great vessels. There is no demonstrated aortic dissection. Normal heart and pericardium. Normal mediastinum. Normal hilar regions. Normal visualized trachea and bronchi. The lungs are well expanded. Continued thickening of the interlobular septa consistent with chronic interstitial lung disease likely radiographic liver process. Alveolar density in the superior segment of the right lower lobe consistent with pneumonia. Some scarring and volume loss in the right lung. Moderate right pleural effusion and small left pleural effusion. Normal chest wall structures. Normal osseous structures. Normal visualized upper abdomen. CT/CTA Chest W/WO Contrast IMPRESSION: 1. No CT evidence of pulmonary embolism. 2. Chronic interstitial lung disease with superimposed right lower lobe pneumonia. 3. Moderate right pleural effusion and small left pleural effusion. Electronically Signed: Pb Troncoso MD at 10:55 EDT Tel , Service support ,
[2021-08-13 09:54] LABS: Absolute Lymphocyte Count 0.57 X10^3/uL (0.83-4.51); Absolute Neutrophil Count 9.3 X10^3/uL (2.0-7.7); Basophil# 0.01 X10^3/uL; Basophil% 0.1 % (0-1); Eosinophil# 0.02 X10^3/uL; Eosinophils% 0.2 % (0-5); Hematocrit 35.2 % (40-54); Hemoglobin 10.6 g/dL (13.0-16.5); Lymphocyte # 0.57 X10^3/ul (0.83-4.51); Lymphocyte % 5.4 % (19-41); Mean Corp Hgb Conc 30.1 g/dL (32-36); Mean Corpuscular Hgb 29.9 pg (27.0-32.0); Mean Corpuscular Volume 99.4 fL (80-94); Mean Platelet Vol. 9.8 fl (6.2-12.0); Monocyte# 0.46 X10^3/uL; Monocyte% 4.4 % (0-10); NRBC Flagged by Analyzer 0 % (0-5); Neutrophil # 9.32 X10^3/uL (2.7-7.7); Neutrophil % 88.6 % (47-70); POSITIVE DIFFERENTIAL YES; POSITIVE MORPHOLOGY YES; Platelet Count 220 K/mm3 (150-450); RBC Distribution Width CV 18.7 % (11.6-14.6); RBC Distribution Width SD 69.5 fl (35.1-43.9); Red Blood Count 3.54 M/mm3 (4.6-6.2); White Blood Count 10.5 K/mm3 (4.4-11.0)
[2021-08-13 09:56] LABS: Differential Indicated SCAN CRITERIA MET
[2021-08-13 10:00] LABS: International Normalized Ratio 1.4; Prothrombin Time (Protime)PT. 16.5 SECONDS (11.7-14.9)
[2021-08-13 10:01] LABS: ALB/GLOB Ratio 0.7 RATIO (0.9-2.4); AST(SGOT) 12 U/L (15-37); Alanine Aminotransfer ALT/SGPT 24 U/L (16-61); Albumin, Serum 2.7 g/dL (3.2-5.0); Alkaline Phosphatase 37 U/L (45-117); Anion Gap 4 (5-15); BUN 26 mg/dL (7-18); BUN/Creat Ratio 22.8 RATIO (10-20); Calcium,Total 8.9 mg/dL (8.5-10.1); Chloride 101 mmol/L (98-107); Creatinine, Serum 1.14 mg/dL (0.70-1.30); EST Glomerular Filtration Rate 70 mL/min (>60); Est Glom Filt Rate - Afr Amer 85 mL/min (>60); Estimated Creatinine Clearance 88.83 ml/min; Globulin 3.7 g/dL (2.2-4.2); Glucose 97 mg/dL (74-106); Partial Thromboplast Time 29.9 Seconds (24.1-36.2); Potassium 3.7 mmol/L (3.5-5.1); Protein, Total 6.4 g/dL (6.4-8.2); Sodium Level 140 mmol/L (136-145); Troponin-I HS 12 pg/mL (3.0-78.0)
[2021-08-13 10:06] LABS: Lactic Acid 2.3 mmol/L (0.4-1.9)
[2021-08-13 10:15] LABS: BNP,B-Type NATRIURETIC PEPTIDE 174.6 pg/mL (0-100)
[2021-08-13 10:25] LABS: Anisocytosis 1+
--- NOTE | 2021-08-13 13:06 | ED.VIS.DYS ---
HPI History of Present Illness Chief Complaint: Shortness of Breath Informant: patient Onset/Context/Timing Onset: Today Context: gradual Timing: Continuous Quality: Positive for Dyspnea on exertion Worsened by: Exertion and Lying flat Relieved by: Oxygen Associated Symptoms cough, rhinorrhea and yellow sputum; Negative for ear pain, fever, sore throat or chills Chest Pain: Positive for None Narrative Narrative: Patient presents with shortness of breath and hypoxia that began this morning. Patient went to his oncologist appointment today. Patient walked into the office and then noted his sats were in the 40s. He is normally on 6 L of oxygen by nasal cannula at home. He was placed on a nonrebreather mask. He is feeling better. Patient states his breathing is worse anytime he walks a short distance. Patient has a history of lung cancer. Patient admits to a cough with some yellow sputum. Patient also admits to some rhinorrhea. Patient was recently started on steroids. PE Risk Factors: Positive for Cancer [facility] Medical History Abnormal PET scan of colon Adrenal nodule Anxiety and depression Asthma, moderate persistent Atrial fibrillation Atrial fibrillation with rapid ventricular response BiPAP (biphasic positive airway pressure) dependence Bipolar disorder Borderline type 2 diabetes mellitus Chemotherapy induced neutropenia Chest pain CINV (chemotherapy-induced nausea and vomiting) Consolidation of right lower lobe of lung Diabetes mellitus Dyspnea Encounter for education Essential (primary) hypertension Fatigue Hyperlipidemia Irregular heart beat Longstanding persistent atrial fibrillation Lung cancer Marijuana abuse Migraines Nausea Nicotine dependence Nocturia Obesity Oral candidiasis ALEX (obstructive sleep apnea) Pancytopenia due to chemotherapy Persistent atrial fibrillation Pleural effusion, right Radiation dermatitis Rectal pain Regional lymph node metastasis present Sleep apnea Smoker 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 classification Home Medications fluticasone propionate 2 spray NASAL DAILY PRN PRN 04/11/16 [History Last Taken Unknown] tiotropium bromide 2.5 mcg/actuation mist for inhalation 2 puff INHALATION DAILY #4 gm 07/25/20 [Rx Last Taken 08/13/21] doxazosin 2 mg tablet 2 mg PO DAILY #90 tablet 12/27/20 [Rx Last Taken 08/13/21] albuterol sulfate 90 mcg/actuation breath activated powder inhaler 2 inh INHALATION Q4H PRN PRN #1 each 01/21/21 [Rx Last Taken 08/13/21] pravastatin 40 mg tablet 40 mg PO DINNER #90 tablet 05/02/21 [Rx Last Taken 08/12/21] budesonide-formoterol [Symbicort] 2 puff INHALATION BID 06/05/21 [History Last Taken 08/13/21] cholecalciferol (vitamin D3) 1,250 mcg PO SA 06/05/21 [History Last Taken 08/10/21] furosemide 40 mg PO DAILY 30 Days #30 tab 06/12/21 [Rx Last Taken 08/13/21] metoprolol tartrate 50 mg PO BID #60 tab 06/12/21 [Rx Last Taken 08/13/21] Disability Placard #1 ea 06/20/21 [Rx Last Taken Unknown] amiodarone 200 mg tablet 200 mg PO DAILY #60 tab 06/26/21 [Rx Last Taken 08/13/21] rivaroxaban 20 mg tablet 20 mg PO QDAY #30 tablet 06/26/21 [Rx Last Taken 08/12/21] prednisone 10 mg tablet 10 mg PO QDAY #180 tab 06/27/21 [Rx Last Taken 08/13/21] pantoprazole 40 mg tablet,delayed release 40 mg PO DAILY #30 tab 07/15/21 [Rx Last Taken 08/13/21] nystatin 100,000 unit/mL oral suspension 5 ml PO Q6H #250 ml 07/25/21 [Rx Last Taken 08/13/21] polyethylene glycol 3350 17 gram oral powder packet 17 g PO DAILY PRN 30 Days #30 packet 07/25/21 [Rx Last Taken 08/13/21] fluoxetine 20 mg capsule 60 mg PO DAILY #270 cap 07/30/21 [Rx Last Taken 08/13/21] Allergy/AdvReac Type Severity Reaction Status Date / Time atezolizumab AdvReac Severe Pneumonia Verified 08/13/21 09:16 pioglitazone HCl [From Actos] AdvReac Severe Other Verified 08/13/21 09:16 Family History Father CAD (coronary artery disease) Hx CABG Family history of hypertension Family history of hyperlipidemia Hypertension CVA (cerebral vascular accident) Mother , Age 55 Sudden cardiac Family history of hypertension Sister Family history of hypertension Family history of hyperlipidemia Diabetes Grandfather CVA (cerebral vascular accident) Grandmother CVA (cerebral vascular accident) Uncle Lung cancer Surgical History History of cardioversion (03/2016) History of stomach ulcers History of thoracentesis (01/2020) History of tonsillectomy Pilonidal cyst (~1986) PORT PLACEMENT Social History Smoking Status: Former smoker quit date: 09/01/20 alcohol intake: never details: occasional substance use type: marijuana caffeine: Yes Type: carbonated beverages and coffee what type of physical activity do you participate in: none romero/yazidi: Presybeterian seatbelt use: always do you feel safe at home: Yes ROS ROS ED Constitutional Constitutional ED: Denies chills or fever(s) Eyes Eyes: Denies blurry vision or change in vision ENT ENT ED: Reports rhinorrhea; Denies sore throat Cardiovascular Cardiovascular: Reports palpitations; Denies chest pain Respiratory/Chest Respiratory/Chest: Reports cough and dyspnea Gastrointestinal Gastrointestinal: Denies nausea or vomiting Genitourinary Genitourinary ED: Denies dysuria or hematuria Musculoskeletal Musculoskeletal: Denies back pain or neck pain Integumentary Reports rash; Denies abscess Neurologic Neurologic: Denies headache(s) or weakness Allergic/Immunologic Allergic/Immunologic ED: Denies mouth swelling or urticaria EXAM Physical Exam Const Vital Signs: 08/13/21 09:16 08/13/21 09:20 08/13/21 12:59 Temperature 96.8 F L 96.8 F L 96.7 F L Temperature Source Temporal Temporal Temporal Pulse Rate 76 76 68 Respiratory Rate 11 L 11 L 17 Respiratory Effort Short of Breath Labored Accessory Muscle Use Blood Pressure 115/71 115/71 122/69 H Blood Pressure Mean 85 85 86 Pulse Ox 92 92 97 Oxygen Delivery Method Non-Rebreather Non-Rebreather Nasal Cannula Oxygen Flow Rate (L/min) 6 Positive well nourished and well developed General Appearance ED: well developed HEENT Reports moist mucous membranes Neck supple and no JVD Resp normal respiratory effort Auscultation: diminished lung sounds bilateral lower Cardio regular rate and no murmurs Rhythm: abnormal rhythm irregularly irregular GI normal to inspection, nondistended, normoactive bowel sounds and non-tender Palpation: soft Extremity normal to inspection General Extremety ED: Negative for edema or tenderness General Extremity: Negative for edema Neuro oriented x3, CN's II-XII intact bilaterally and no sensory deficits noted Sensorium / Orientation: alert Motor Exam: strength 5/5 throughout Psych mental status grossly normal Skin no rashes or lesions noted MDM MDM MDM Narrative Medical decision making narrative: CTA of the chest was obtained. There is no evidence of pulmonary embolism. There are chronic changes and a right lower lobe infiltrate. This was interpreted by the radiologist and reviewed by myself. CBC was within normal limits. PT with INR and PTT were essentially within normal limits. Comprehensive metabolic profile showed a slightly elevated BUN of 26 which is consistent with prior results. High-sensitivity troponin was 12. Lactate was elevated 2.3. BNP was slightly elevated at 174.6. Blood cultures were obtained and are pending. Patient was started on Rocephin and Zithromax. Case was discussed with the hospitalist. He will admit the patient to ICU. Patient was discussed with the ornament stapler. He agrees with treatment. Patient understood and was agreeable with the plan. All questions were answered. Lab Data Attestation: I reviewed the patient's lab results. Labs: Laboratory Results - last 24 hr 08/13/21 08/13/21 08/13/21 09:25 09:25 09:25 WBC 10.5 RBC 3.54 L Hgb 10.6 L Hct 35.2 L MCV 99.4 H MCH 29.9 MCHC 30.1 L RDW Std Deviation 69.5 H RDW Coeff of Benjamin 18.7 H Plt Count 220 MPV 9.8 Immature Gran % (Auto) 1.300 H Neut % (Auto) 88.6 H Lymph % (Auto) 5.4 L [place] % (Auto) 4.4 Eos % (Auto) 0.2 Baso % (Auto) 0.1 Absolute Neuts (auto) 9.3 H Absolute Lymphs (auto) 0.57 L Nucleated RBC % 0 Differential Comment COMMENT Anisocytosis 1+ PT 16.5 H INR 1.4 APTT 29.9 Sodium 140 Potassium 3.7 Chloride 101 Carbon Dioxide 35.0 H Anion Gap 4 L BUN 26 H Creatinine 1.14 Estim Creat Clear Calc 88.83 Est GFR (MDRD) Af Amer 85 Est GFR (MDRD) Non-Af 70 BUN/Creatinine Ratio 22.8 H Glucose 97 Lactic Acid Calcium 8.9 Total Bilirubin 0.40 AST 12 L ALT 24 Alkaline Phosphatase 37 L Troponin I High Sens 12 B-Natriuretic Peptide Total Protein 6.4 Albumin 2.7 L Globulin 3.7 Albumin/Globulin Ratio 0.7 L 08/13/21 08/13/21 09:25 09:25 WBC RBC Hgb Hct MCV MCH MCHC RDW Std Deviation RDW Coeff of Benjamin Plt Count MPV Immature Gran % (Auto) Neut % (Auto) Lymph % (Auto) [place] % (Auto) Eos % (Auto) Baso % (Auto) Absolute Neuts (auto) Absolute Lymphs (auto) Nucleated RBC % Differential Comment Anisocytosis PT INR APTT Sodium Potassium Chloride Carbon Dioxide Anion Gap BUN Creatinine Estim Creat Clear Calc Est GFR (MDRD) Af Amer Est GFR (MDRD) Non-Af BUN/Creatinine Ratio Glucose Lactic Acid 2.3 H* Calcium Total Bilirubin AST ALT Alkaline Phosphatase Troponin I High Sens B-Natriuretic Peptide 174.6 H Total Protein Albumin Globulin Albumin/Globulin Ratio Radiography Diagnostic Testing: Radiology Impression Chest CTA 08/13/21 09:33 IMPRESSION: 1. No CT evidence of pulmonary embolism. 2. Chronic interstitial lung disease with superimposed right lower lobe pneumonia. 3. Moderate right pleural effusion and small left pleural effusion. Electronically Signed: Pb Troncoso MD at 10:55 EDT Tel , Service support , EKG Initial EKG: Attestation: I personally reviewed and interpreted this EKG as follows: Interpretation: No Acute Injury Pattern and Atrial Fibrillation (75) Treatment and Re-Evaluation Vital Sign Attestation:: Vital signs were reviewed prior to admission. They are stable. Critical Care Time Critical Care Time: Yes Critical care time (excluding procedures): 30-74 minutes (33), Including time spent:, Discussing w/Patient &/or Family/Plaster Mixer, Discussing w/Consultants, Arranging Admission or Transfer and Performing Direct Patient Care at Bedside Discharge Plan Dx/Rx/DC Orders Clinical Impression: Pneumonia, Hypoxia Disposition Disposition: Acute Care Hospital [facility] Discharge Date/Time: 08/13/21 15:18
--- NOTE | 2021-08-13 13:38 | NURSING ---
ICU ANTHONY PNEUMONIA, HYPOXIA, SEVERE SEPSIS
[2021-08-13 13:41] LABS: Reflex Lactate? Y
--- NOTE | 2021-08-13 14:00 | HP.PCM.HOS_ITS ---
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 His pulse ox was found in 40s. At home his baseline oxygen requirement is 6 L and supposed to sleep on CPAP but he does not use and uses na ying cannula instead. Patient is stated he also recently gained 35 pounds, gets short of breath easily on walking small dyspnea, dyspnea on exertion. He also has chronic cough with some yellow sputum. Usually when he wakes up he has more cough and wheezing which clears after bronchodilator use. Denies any fever chills, nausea vomiting, headache or alteration in bowel movement. Patient has left upper chest port Twelve-lead EKG shows A. fib at 75 beats minute with PVCs, QTC [address]-T abnormality. His previous EKG was also A. fib 144 bpm. CTA chest does not show PE but chronic interstitial lung disease with superimposed RLL pneumonia and moderate right pleural effusion small left pleural effusion. Patient was last admitted in May 2021 for acute hypoxic respiratory failure secondary to pneumonitis, A. fib and heart failure. Patient recently had pneumonia on left side during previous admission. [facility] Medical History Abnormal PET scan of colon Adrenal nodule Anxiety and depression Asthma, moderate persistent Atrial fibrillation Atrial fibrillation with rapid ventricular response BiPAP (biphasic positive airway pressure) dependence Bipolar disorder Borderline type 2 diabetes mellitus Chemotherapy induced neutropenia Chest pain CINV (chemotherapy-induced nausea and vomiting) Consolidation of right lower lobe of lung Diabetes mellitus Dyspnea Encounter for education Essential (primary) hypertension Fatigue Hyperlipidemia Irregular heart beat Longstanding persistent atrial fibrillation Lung cancer Marijuana abuse Migraines Nausea Nicotine dependence Nocturia Obesity Oral candidiasis ALEX (obstructive sleep apnea) Pancytopenia due to chemotherapy Persistent atrial fibrillation Pleural effusion, right Radiation dermatitis Rectal pain Regional lymph node metastasis present Sleep apnea Smoker 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 classification Home Medications fluticasone propionate 2 spray NASAL DAILY PRN PRN 04/11/16 [History Last Taken Unknown] tiotropium bromide 2.5 mcg/actuation mist for inhalation 2 puff INHALATION DAILY #4 gm 07/25/20 [Rx Last Taken 06/05/21] ondansetron HCl 8 mg PO Q8H PRN PRN 30 Days #30 tablet 08/23/20 [Rx Last Taken Unknown] prochlorperazine maleate 10 mg PO Q6H PRN PRN 10 Days #30 tablet 08/23/20 [Rx Last Taken Unknown] doxazosin 2 mg tablet 2 mg PO DAILY #90 tablet 12/27/20 [Rx Last Taken 06/05/21] albuterol sulfate 90 mcg/actuation breath activated powder inhaler 2 inh INHALATION Q4H PRN PRN #1 each 01/21/21 [Rx Last Taken 06/05/21] pravastatin 40 mg tablet 40 mg PO DINNER #90 tablet 05/02/21 [Rx Last Taken 06/05/21] budesonide-formoterol [Symbicort] 2 puff INHALATION BID 06/05/21 [History Last Taken 06/05/21] cholecalciferol (vitamin D3) 1,250 mcg PO SA 06/05/21 [History Last Taken 06/01/21] furosemide 40 mg PO DAILY 30 Days #30 tab 06/12/21 [Rx Last Taken Unknown] metoprolol tartrate 50 mg PO BID #60 tab 06/12/21 [Rx Last Taken Unknown] Disability Placard #1 ea 06/20/21 [Rx Last Taken Unknown] amiodarone 200 mg tablet 200 mg PO DAILY #60 tab 06/26/21 [Rx Last Taken Unknown] rivaroxaban 20 mg tablet 20 mg PO QDAY #30 tablet 06/26/21 [Rx Last Taken Unknown] prednisone 10 mg tablet 10 mg PO QDAY #180 tab 06/27/21 [Rx Last Taken Unknown] pantoprazole 40 mg tablet,delayed release 40 mg PO DAILY #30 tab 07/15/21 [Rx Last Taken Unknown] nystatin 100,000 unit/mL oral suspension 5 ml PO Q6H #250 ml 07/25/21 [Rx Last Taken Unknown] polyethylene glycol 3350 17 gram oral powder packet 17 g PO DAILY PRN 30 Days #30 packet 07/25/21 [Rx Last Taken Unknown] fluoxetine 20 mg capsule 60 mg PO DAILY #270 cap 07/30/21 [Rx Last Taken Unknown] Allergy/AdvReac Type Severity Reaction Status Date / Time atezolizumab AdvReac Severe Pneumonia Verified 08/13/21 09:16 pioglitazone HCl [From Actos] AdvReac Severe Other Verified 08/13/21 09:16 Family History Father CAD (coronary artery disease) Hx CABG Family history of hypertension Family history of hyperlipidemia Hypertension CVA (cerebral vascular accident) Mother , Age 55 Sudden cardiac Family history of hypertension Sister Family history of hypertension Family history of hyperlipidemia Diabetes Grandfather CVA (cerebral vascular accident) Grandmother CVA (cerebral vascular accident) Uncle Lung cancer Surgical History History of cardioversion (03/2016) History of stomach ulcers History of thoracentesis (01/2020) History of tonsillectomy Pilonidal cyst (~1986) PORT PLACEMENT Social History Smoking Status: Unknown if ever smoked alcohol intake: never details: occasional substance use type: marijuana caffeine: Yes Type: carbonated beverages and coffee what type of physical activity do you participate in: none romero/scientology: Zoroastrian seatbelt use: always do you feel safe at home: Yes ROS ROS Narrative Constitutional: Reports fatigue and weakness. Patient had Covid vaccine in February. HEENT: Reports systems reviewed and no addt'l complaints, except as documented Respiratory/Chest: Dyspnea on exertion. No chest pain/Pressure. Bilateral leg swelling and weight gain Gastrointestinal: Denies coffee ground emesis, hematemesis or vomiting Genitourinary: Denies burning urination or new urinary tract symptoms Musculoskeletal: Reports mild joint pain and limited range of motion Neurologic: Denies seizure-like activity skin: No ulcer. No rash Endocrinology: Reports systems reviewed and no addt'l complaints, except as documented Hematologic/Lymphatic: Reports systems reviewed and no addt'l complaints, except as documented Rest 12 ROS are negative except as mentioned in HPI Vital Signs Vital Signs Vital Signs: 08/13/21 09:16 08/13/21 09:20 08/13/21 12:59 Temperature 96.8 F L 96.8 F L 96.7 F L Temperature Source Temporal Temporal Temporal Pulse Rate 76 76 68 Respiratory Rate 11 L 11 L 17 Respiratory Effort Short of Breath Labored Accessory Muscle Use Blood Pressure 115/71 115/71 122/69 H Blood Pressure Mean 85 85 86 Pulse Ox 92 92 97 Oxygen Delivery Method Non-Rebreather Non-Rebreather Nasal Cannula Oxygen Flow Rate (L/min) 6 Weight Weight: 304 lb 3.806 oz Body Mass Index (BMI) 37.0 Physical Exam Narrative General: Alert, Oriented x3, Cooperative. HEENT: Atraumatic, PERRLA, EOMI, Normocephalic Oral: No Gingival or Mucosal Lesions/ Ulcerations Neck: Supple, No JVD, Negative Carotid Bruits. Left upper chest MediPort present Lungs: Air entry diminished in right posterior lung. On 6 L oxygen. Right more than left Bilateral pleural effusion. Right lung base crepitations present. Cardiovascular: A. fib, heart rate controlled. Normal S1, Normal S2, No murmurs. Abdomen: Bowel Sounds Present, Soft, Non Tender, Non-Distended : No renal angle tenderness. No suprapubic tenderness. Extremities: Bilateral leg moderate edema, Capillary Refill Less than 3 Seconds Skin: No rashes, No breakdown Musculoskeletal: No Tenderness to Palpation of Joints or Extremities Neurological: Cranial nerves II-XII grossly intact, DTR 2+/4 and Symmetrical, Neuro grossly intact Psych/Mental Status: Normal Affect, Appropriate. Results Lab / Micro Data Result Diagrams: 08/13/21 09:25 08/13/21 09:25 Labs: Laboratory Results - last 24 hr 08/13/21 09:25: WBC 10.5, RBC 3.54 L, Hgb 10.6 L, Hct 35.2 L, MCV 99.4 H, MCH 29.9, MCHC 30.1 L, RDW Std Deviation 69.5 H, RDW Coeff of Benjamin 18.7 H, Plt Count 220, MPV 9.8, Immature Gran % (Auto) 1.300 H, Neut % (Auto) 88.6 H, Lymph % (Auto) 5.4 L, [place] % (Auto) 4.4, Eos % (Auto) 0.2, Baso % (Auto) 0.1, Absolute Neuts (auto) 9.3 H, Absolute Lymphs (auto) 0.57 L, Nucleated RBC % 0, Differential Comment COMMENT, Anisocytosis 1+ 08/13/21 09:25: PT 16.5 H, INR 1.4, APTT 29.9 08/13/21 09:25: Sodium 140, Potassium 3.7, Chloride 101, Carbon Dioxide 35.0 H, Anion Gap 4 L, BUN 26 H, Creatinine 1.14, Estim Creat Clear Calc 88.83, Est GFR (MDRD) Af Amer 85, Est GFR (MDRD) Non-Af 70, BUN/Creatinine Ratio 22.8 H, Gluco se 97, Calcium 8.9, Total Bilirubin 0.40, AST 12 L, ALT 24, Alkaline Phosphatase 37 L, Troponin I High Sens 12, Total Protein 6.4, Albumin 2.7 L, Globulin 3.7, Albumin/Globulin Ratio 0.7 L 08/13/21 09:25: Lactic Acid 2.3 H* 08/13/21 09:25: B-Natriuretic Peptide 174.6 H Micro: Microbiology 08/13/21 09:55 Nasal Secretion SARS-CoV-2 Antigen (Rapid) - Final Radiology Impression Chest CTA 08/13/21 09:33 IMPRESSION: 1. No CT evidence of pulmonary embolism. 2. Chronic interstitial lung disease with superimposed right lower lobe pneumonia. 3. Moderate right pleural effusion and small left pleural effusion. Electronically Signed: Pb Troncoso MD at 10:55 EDT Tel , Service support , Assessment & Plan Assessment/Plan (1) Pneumonia: PLAN: 1. Acute on chronic hypoxic respiratory failure due to RLL pneumonia, bilateral R> L moderate pleural effusion, CHF exacerbation: Lactic acid elevated which qualifies for severe sepsis. Lactic acid may also be admitted by hypoxia, effective plasma volume. Initially patient was planned to admit in ICU but there is no currently been open and patient blood pressure and heart rate in acceptable limit therefore admitted in PCU. Discussed with consulting senior practice director. Started on vancomycin and Zosyn. Pneumonia work-up ordered. 2. Acute on chronic HFpEF with chronic/persistent A. fib: BNP elevated. High- sensitivity?troponin normal. No chest pain. Patient recent 2D echo in May 2021 shows EF 55% with normal LV systolic function. Normal RV size and systolic function. No thrombus in LA appendage. Lasix is started on 40 mg IV twice daily as per tolerated by hemodynamics, electrolytes and kidney function. Patient on Xarelto continued. Heart rate is controlled. Continue amiodarone. Patient follows Dr. Schaefer. 3. COPD, metastatic small cell cancer, recurrent bilateral pleural effusion, possible malignant effusion: Patient follows Dr. Castillo on baseline inhalers. DuoNeb every 6 hourly. Does not seem to be in acute exacerbation. Follows Dr. Johnson. Patient had right sided thoracocentesis last time. Monitor patient stated there was not much effusion. 4. Other multiple comorbidities include hypertension, dyslipidemia, anxiety and depression, ALEX on CPAP at night, history of smoking. As per patient he quit smoking. No medication reconciliation done. Living will/advanced directive/end of life care: Patient does not remember whether he has living will or advanced directive but he signed some paper. After discussion of benefits/risks procedures involved with full code, DNR CC arrest and DNR CC, the patient wants to be tried for 1 time including intubation, ventilator, CPR/life support measures but does not want to prolong if he becomes with stable. Therefore full code. Patient does want artificial life support including intubation, tube feed, ventilator and/chest compression, central venous catheter, vasopressor and DC shock if needed Total time spent in [id number] encounter in discussion of advanced directive 16 minutes. Charges/Coding Visit Charges Inpatient E&M: 75375 Init Hosp L3 Procedures Hospitalists Procedures: 00108 Advncd Care Plan 30 Min
[2021-08-13 14:33] LABS: Lactic Acid 1.9 mmol/L (0.4-1.9)
--- NOTE | 2021-08-13 15:46 | PCS.PANDOC ---
PANDEMIC DOCUMENTATION INITIATED: Date: 07/15/2021 Time: 190
[2021-08-13] MEDS: 0.9% Saline Lock 10 ML Syringe IV (16:09)
[2021-08-13] MEDS: Furosemide 40 MG/4 ML Vial IV (16:09)
[2021-08-13] MEDS: Pravastatin 40 MG Tablet PO (17:02)
[2021-08-13] MEDS: Rivaroxaban 20 MG Tablet PO (17:02)
--- NOTE | 2021-08-13 17:26 | PCM.RX.CS ---
Consult Pharmacy has been consulted to manage selected antiobiotic: Vancomycin Type of Consult: New start Suspected Infection: Pneumonia Labs: Sodium 140 mmol/L (136-145) 08/13/21 09:25 Potassium 3.7 mmol/L (3.5-5.1) 08/13/21 09:25 Chloride 101 mmol/L (98-107) 08/13/21 09:25 Carbon Dioxide 35.0 mmol/L (21.0-32.0) H 08/13/21 09:25 Anion Gap 4 (5-15) L 08/13/21 09:25 BUN 26 mg/dL (7-18) H 08/13/21 09:25 Creatinine 1.14 mg/dL (0.70-1.30) 08/13/21 09:25 Est GFR (MDRD) Af Amer 85 mL/min (>60) 08/13/21 09:25 Est GFR (MDRD) Non-Af 70 mL/min (>60) 08/13/21 09:25 BUN/Creatinine Ratio 22.8 RATIO (10-20) H 08/13/21 09:25 Glucose 97 mg/dL (74-106) 08/13/21 09:25 Microbiology: Microbiology 08/13/21 09:55 Nasal Secretion SARS-CoV-2 Antigen (Rapid) - Final Goal Trough: 15-20 mcg/mL Pharmacy Plan for Drug Dosing: NEW START IV VANCOMYCIN Consulting Physician: Dr. Aguilar Indication: RLL Pneumonia Goal Trough: 15-20 SrCr: 1.14 CrCl: 88 mL/min Comments: 2g IV x1 ordered and administered 08/13/21 @1620. Patient was recently admitted and on vancomycin. On previous admission, pt was therapeutic on 1500mg IV Q12hr at that time. Will start the patient on their previous dosing, rather than following the nomogram at this time. Of note: patient's renal function fluctuated last visit, but current SCr is similar to that of when the patient was therapeutic on the 1500mg IV Q12hr dosing. Vancomcyin Dose: 1500mg IV Q12hr to start 08/14/21 @0400 Pending Level: 08/15/21 @0330 Pharmacy Service will continue to monitor and adjust dosing as required.
[2021-08-13] MEDS: Ipratropium/Albuterol Sulfate 3 ML AMPUL.NEB INHALATION (20:31)
[2021-08-13] MEDS: guaiFENesin 1,200 MG Tablet 1200 MG PO (22:22)
[2021-08-13] MEDS: Metoprolol Tartrate 50 MG Tablet PO (22:22)
[2021-08-13] MEDS: Nystatin Powder 15gm Bottle 1 APPLIC TOPICAL (22:22)
[2021-08-14] VITALS (18 sets, daily range): BP systolic 106–139; BP diastolic 76–91; PULSE 49–89; RESP 12–22; TEMP 36.6–37; O2SAT 93–100
[2021-08-14] MEDS: 0.9% Saline Lock 10 ML Syringe IV (03:57)
--- NOTE | 2021-08-14 04:51 | NURSING ---
looked like needed to collect a MRSA swab. Once opened order it was collected in ER. I called the lab and they said that there is no record of it. So I recollected it and sent down the old order with it.
[2021-08-14 06:26] LABS: M R Staph aureus DNA By PCR POSITIVE (Negative); Probe Check PASS
[2021-08-14] MEDS: Ipratropium/Albuterol Sulfate 3 ML AMPUL.NEB INHALATION ×3 (07:11→19:43)
[2021-08-14 07:14] LABS: Absolute Lymphocyte Count 1.36 X10^3/uL (0.83-4.51); Absolute Neutrophil Count 3.8 X10^3/uL (2.0-7.7); Basophil# 0.01 X10^3/uL; Basophil% 0.2 % (0-1); Eosinophil# 0.05 X10^3/uL; Eosinophils% 0.9 % (0-5); Hematocrit 33.7 % (40-54); Hemoglobin 10.1 g/dL (13.0-16.5); Lymphocyte # 1.36 X10^3/ul (0.83-4.51); Mean Corpuscular Hgb 30.1 pg (27.0-32.0); Mean Corpuscular Volume 100.3 fL (80-94); Monocyte% 7.1 % (0-10); NRBC Flagged by Analyzer 0 % (0-5); Neutrophil % 66.9 % (47-70); POSITIVE MORPHOLOGY YES; Platelet Count 179 K/mm3 (150-450); RBC Distribution Width CV 18.9 % (11.6-14.6); RBC Distribution Width SD 69.8 fl (35.1-43.9); Red Blood Count 3.36 M/mm3 (4.6-6.2); White Blood Count 5.7 K/mm3 (4.4-11.0)
[2021-08-14 07:15] LABS: Differential Indicated SCAN CRITERIA MET
[2021-08-14 07:38] LABS: Anion Gap 1 (5-15); BUN 29 mg/dL (7-18); BUN/Creat Ratio 23.2 RATIO (10-20); Calcium,Total 9.3 mg/dL (8.5-10.1); Chloride 101 mmol/L (98-107); Creatinine, Serum 1.25 mg/dL (0.70-1.30); EST Glomerular Filtration Rate 63 mL/min (>60); Est Glom Filt Rate - Afr Amer 77 mL/min (>60); Estimated Creatinine Clearance 81.01 ml/min; Glucose 87 mg/dL (74-106); Magnesium 2.3 mg/dL (1.6-2.6); Phosphorus 3.3 mg/dL (2.5-4.9); Potassium 4.4 mmol/L (3.5-5.1); Sodium Level 140 mmol/L (136-145)
[2021-08-14 07:41] LABS: Anisocytosis 1+
[2021-08-14] MEDS: Nystatin Powder 15gm Bottle 1 APPLIC TOPICAL ×2 (08:57→21:00)
[2021-08-14] MEDS: Pantoprazole Sodium 40 MG Tablet PO (08:58)
[2021-08-14] MEDS: FLUoxetine 20 MG Capsule 60 MG PO (08:58)
[2021-08-14] MEDS: guaiFENesin 1,200 MG Tablet 1200 MG PO ×2 (08:58→21:00)
[2021-08-14] MEDS: Doxazosin 1 MG Tablet 2 MG PO (08:58)
[2021-08-14] MEDS: predniSONE 10 MG Tablet 40 MG PO (08:58)
[2021-08-14] MEDS: Metoprolol Tartrate 50 MG Tablet PO ×2 (08:58→21:00)
[2021-08-14] MEDS: Amiodarone 200 MG Tablet PO (08:58)
[2021-08-14] MEDS: Furosemide 40 MG/4 ML Vial IV (11:32)
--- NOTE | 2021-08-14 12:15 | CASEMGMT ---
CORTNEY MORA assessment: CORTNEY MORA to room to meet with patient for initial transition planning/care coordination assessment. CORTNEY MORA introduced self and role at [facility].? Pt voices understanding and consents to assessment at this time.? Pt resting in bed in no distress at this time.? Pt's sister, Augustina, @ bedside and pt is agreeable to her being present during assessment. Pt is A/O at this time and answers all questions appropriately.?? Care providers, pharmacy, and demographics verified/updated at this time. PCP: Dr Velasquez Specialists: Dr Castillo, pulmonology; Dr Burks, oncology; Dr Schaefer, cardiology Referral to Palliative care was made last admission, but per pt, he states he does not think he signed up to receive their services at that time. He is interested in talking w/someone again re: Palliative Care, and states he has no preference if they meet w/him while @ [facility] or if they f/u with him once he returns home. PCU CM, Miguelina Garcia, made aware. Preferred Pharmacy: [facility] Retail Insurance: [employer] Prescription Benefit: yes Living Will/HPOA: Interested in more information and would like to talk w/SW. CLAIRE Monae, made aware. LNOK: Emily Gomez, sister; Heather Segundoedvin, sister; Augustina, sister Living Arrangements: Pt lives alone in duplex with flight of stairs to bathroom and states his sister, Emily, lives in other side of duplex with her kids and able to help, if needed. Pt states independent with ADL's. Emily buys groceries and prepares most meals and does his laundry. Pt declines wanting info for Meals on Wheels at this time. Pt states there is no bathroom on the main floor and the steps are difficult to navigate d/t SOB. Transportation: Pt states drives self and states no transportation concerns. DME: Pt states has a cane, CPAP, and O2 through [employer]. Current orders are for 5 L/M @ rest and 6 L/M w/exertion, but pt states he has been using 6 L/M continuously. Pt states he is supposed to be doing O2 bleed-in thru the CPAP, but states he does not use the CPAP @ HS, only the 6 L/M via NC. He states he has the attachment for the O2 bleed-in and tried to use it a couple of times when he returned home from last hospitalization, but states he doesn't like it with the O2, so he stopped using the CPAP altogether. Pt states he would like a BSC. Provided w/list of local DME companies and he has no preference. HHC/SNF: Pt states no hx of HHC or SNF. Pt wishes to return home and states has no concerns with going home at time of discharge.? CM to follow for any increase in home oxygen needs and any further discharge planning/needs.? Pt voices no further concerns/needs at this time.? Advised pt to ask for CM if any further questions/concerns/needs arise.? Voices understanding. PLAN: ?Home w/family support and discharge plans in place. CM to assist w/getting BSC and to follow for any increase in O2 needs. SW to meet w/pt for AD. Rudy QUINTANILLA RN CM
--- NOTE | 2021-08-14 14:10 | PN.HOSP_ITS ---
Subjective Subjective Patient is mildly comfortable as compared to yesterday. Bicarb and BUN went up with only 1 dose of IV Lasix. No chest pain. Objective Data Objective Data Vital Signs: Vital Signs Temp Pulse Resp BP Pulse Ox 98.6 F 76 16 139/76 H 93 08/14/21 08:52 08/14/21 08:58 08/14/21 08:52 08/14/21 08:52 08/14/21 08:52 Oxygen Flow Rate (L/min) 6 Oxygen Delivery Method Nasal Cannula Weight: 297 lb 9.985 oz Body Mass Index (BMI) 35.9 Intake & Output: Intake and Output for Last 24 Hours 08/12/21 08/13/21 08/14/21 23:59 23:59 23:59 Intake Total 1375 / 1375 890 / 890 Output Total 950 / 950 820 / 820 Balance 425 / 425 70 / 70 Lab / Micro Data Result Diagrams: 08/14/21 07:00 08/14/21 07:00 Labs: Laboratory Results - last 24 hr 08/13/21 14:00: Lactic Acid 1.9 08/13/21 14:04: COVID-19 (DOV) Not Detected 08/14/21 04:50: MRSA (PCR) POSITIVE H 08/14/21 07:00: WBC 5.7, RBC 3.36 L, Hgb 10.1 L, Hct 33.7 L, MCV 100.3 H, MCH 30.1, MCHC 30.0 L, RDW Std Deviation 69.8 H, RDW Coeff of Benjamin 18.9 H, Plt Count 179, MPV 9.0, Immature Gran % (Auto) 0.900, Neut % (Auto) 66.9, Lymph % (Auto) 24.0, [place] % (Auto) 7.1, Eos % (Auto) 0.9, Baso % (Auto) 0.2, Absolute Neuts (auto) 3.8, Absolute Lymphs (auto) 1.36, Nucleated RBC % 0, Anisocytosis 1+ 08/14/21 07:00: Sodium 140, Potassium 4.4, Chloride 101, Carbon Dioxide 38.0 H, Anion Gap 1 L, BUN 29 H, Creatinine 1.25, Estim Creat Clear Calc 81.01, Est GFR (MDRD) Af Amer 77, Est GFR (MDRD) Non-Af 63, BUN/Creatinine Ratio 23.2 H, Glucose 87, Calcium 9.3, Phosphorus 3.3, Magnesium 2.3 Micro: Microbiology 08/13/21 16:00 Mucosa - Nasopharyngeal Respiratory Panel (PCR) - Final 08/13/21 09:55 Nasal Secretion SARS-CoV-2 Antigen (Rapid) - Final Physical Exam Narrative Physical exam: General: Alert, Oriented x3, Cooperative. HEENT: Atraumatic, PERRLA, EOMI, Normocephalic Oral: No Gingival or Mucosal Lesions/ Ulcerations Neck: Supple, No JVD, Negative Carotid Bruits. Left upper chest MediPort present Lungs: Air entry diminished in right posterior lung. Right more than left Bilateral pleural effusion. No crepitation heard. Cardiovascular: A. fib, heart rate controlled. Normal S1, Normal S2, No murmurs. Abdomen: Bowel Sounds Present, Soft, Non Tender, Non-Distended : No renal angle tenderness. No suprapubic tenderness. Extremities: Bilateral leg moderate edema, Capillary Refill Less than 3 Seconds Skin: No rashes, No breakdown Musculoskeletal: No Tenderness to Palpation of Joints or Extremities Neurological: Cranial nerves II-XII grossly intact, DTR 2+/4 and Symmetrical, Neuro grossly intact Psych/Mental Status: Normal Affect, Appropriate. Assessment & Plan Assessment/Plan (1) Pneumonia: PLAN: 1. Acute on chronic hypoxic respiratory failure due to RLL pneumonia, bilateral R> L moderate pleural effusion, CHF exacerbation: Lactic ac id elevated which qualifies for severe sepsis. Lactic acid may also be admitted by hypoxia, effective plasma volume. Admitted in PCU. Discussed with customer advocacy manager. Started on vancomycin and Zosyn. 08/14: Respiratory panel negative. Urinary antigens are still not collected. MRSA PCR nasal screen positive continue IV antibiotics. Library Supervisor and ID are consulted. 2. Acute on chronic HFpEF with chronic/persistent A. fib: BNP elevated. High- sensitivity?troponin normal. No chest pain. Patient recent 2D echo in May 2021 shows EF 55% with normal LV systolic function. Normal RV size and systolic function. No thrombus in LA appendage. Lasix is started on 40 mg IV twice daily as per tolerated by hemodynamics, electrolytes and kidney function. Patient on Xarelto continued. Heart rate is controlled. Continue amiodarone. Patient follows Dr. Schaefer. 08/14: Patient had significant rise in bicarb and BUN after 1 dose of Lasix. Lisinopril decreased to 40 mg IV daily. 3. COPD, metastatic small cell cancer, recurrent bilateral pleural effusion, possible malignant effusion: Patient follows Dr. Castillo on baseline inhalers. DuoNeb every 6 hourly. Does not seem to be in acute exacerbation. Follows Dr. Johnson. Patient had right sided thoracocentesis last time. Monitor patient stated there was not much effusion. 4. Other multiple comorbidities include hypertension, dyslipidemia, anxiety and depression, ALEX on CPAP at night, history of smoking. As per patient he quit smoking. No medication reconciliation done. Living will/advanced directive/end of life care: Full code. Microbiology Past 72 Hours 08/13/21 16:00 Mucosa - Nasopharyngeal Respiratory Panel (PCR) - Final 08/13/21 09:55 Nasal Secretion SARS-CoV-2 Antigen (Rapid) - Final Laboratory Results 08/13/21 14:00: Lactic Acid 1.9 08/13/21 14:04: COVID-19 (DOV) Not Detected 08/14/21 04:50: MRSA (PCR) POSITIVE H 08/14/21 07:00: WBC 5.7, RBC 3.36 L, Hgb 10.1 L, Hct 33.7 L, MCV 100.3 H, MCH 30.1, MCHC 30.0 L, RDW Std Deviation 69.8 H, RDW Coeff of Benjamin 18.9 H, Plt Count 179, MPV 9.0, Immature Gran % (Auto) 0.900, Neut % (Auto) 66.9, Lymph % (Auto) 24.0, [place] % (Auto) 7.1, Eos % (Auto) 0.9, Baso % (Auto) 0.2, Absolute Neuts (auto) 3.8, Absolute Lymphs (auto) 1.36, Nucleated RBC % 0, Anisocytosis 1+ 08/14/21 07:00: Sodium 140, Potassium 4.4, Chloride 101, Carbon Dioxide 38.0 H, Anion Gap 1 L, BUN 29 H, Creatinine 1.25, Estim Creat Clear Calc 81.01, Est GFR (MDRD) Af Amer 77, Est GFR (MDRD) Non-Af 63, BUN/Creatinine Ratio 23.2 H, Glucose 87, Calcium 9.3, Phosphorus 3.3, Magnesium 2.3 Charges/Coding Visit Charges Inpatient E&M: 63872 Subs Hosp L2
--- NOTE | 2021-08-14 14:14 | CASEMGMT ---
SW assisted pt in completing LW/POA forms, pt put sister Emily Gomez as POA. SW gave pt the original and copies, and placed a copy in the chart. MIKO Weiner
--- NOTE | 2021-08-14 15:59 | CON.PCM.CC_ITS ---
Assessment & Plan Assessment/Plan (1) Hypoxia: (2) ALEX (obstructive sleep apnea): (3) Small cell lung cancer, right upper lobe: (4) Consolidation of right lower lobe of lung: PLAN: RECOMMENDATIONS: 1. Antibiotics per infectious disease 2. Aggressive diuretic therapy 3. Wean oxygen as tolerated 4. Hold on thoracentesis for now 5. Okay to continue with baseline medications from a respiratory standpoint IMPRESSIONS: 1. Acute hypoxic respiratory failure Unclear etiology at this time. Patient does have staph growing in his sputum, but does not appear sick enough to be staph pneumonia. Patient recently had an inflammatory state associated with immunotherapy and still has right lower lobe findings. Patient does have a pleural effusion, but this does not appear to be significant enough to lead to the current findings. Patient does report significant dietary indiscretions and a significant weight gain. Would recommend aggressive diuretic therapy. Antibiotics can be given per infectious disease. Wean oxygen as tolerated. 2. ALEX/stage II COPD/recent immunotherapy induced pneumonitis Patient should be continued on his baseline therapy at a minimum. Patient is on CPAP 18 cm of water at baseline. Patient does not appear to be in acute exacerbation of COPD. Okay to continue baseline medications from my perspective. Patient may be more open to BiPAP therapy while this hypoxic. 3. History of A. fib/acute on chronic diastolic CHF/small cell lung cancer/anxiety/depression/bipolar/hyperlipidemia Complicates care, management, recovery and prognosis. Patient would likely benefit from aggressive diuresis. Continue with baseline psychiatric me dications. HPI Consult Data Date of Consult: 08/14/21 HPI Narrative HPI Narrative: RONALDO ADAM is a 55 M, with past medical history listed below and well-known to me from the outpatient office, who presents to [facility] 08/13/2021 secondary to hypoxemia. Patient was recently hospitalized at [facility] secondary to breathing difficulties associated with immunotherapy. Patient has subsequently been on steroid therapy. Patient is normally on 6 L/min at home, but presented to his oncologist's appointment and found to have a saturation in the 40s. Patient was placed on a nonrebreather with improvement in symptoms. Patient had reported significant dyspnea on exertion, but had attributed this to his untreated cancer. Patient does have a cough productive of yellow sputum and some mild rhinorrhea. Patient has been on steroids since his last hospitalization and readily admits that he has been eating like crap. Patient also reports a 30 pound weight gain since that time. In the ER, patient was afebrile and normotensive. Patient was requiring a nonrebreather to maintain saturations. Laboratory work-up showed a white count of 10.5, hemoglobin of 10.6 and a slightly elevated creatinine of 1.14. LFTs are within normal limits. Lactate is slightly elevated 2.3 and BNP was 174. CTA of the chest showed no acute PE, but right lower lobe pneumonia with a moderate right pleural effusion that appeared to be loculated. [facility] Medical History Abnormal PET scan of colon Adrenal nodule Anxiety and depression Asthma, moderate persistent Atrial fibrillation Atrial fibrillation with rapid ventricular response BiPAP (biphasic positive airway pressure) dependence Bipolar disorder Borderline type 2 diabetes mellitus Chemotherapy induced neutropenia Chest pain CINV (chemotherapy-induced nausea and vomiting) Consolidation of right lower lobe of lung Diabetes mellitus Dyspnea Encounter for education Essential (primary) hypertension Fatigue Hyperlipidemia Irregular heart beat Longstanding persistent atrial fibrillation Lung cancer Marijuana abuse Migraines Nausea Nicotine dependence Nocturia Obesity Oral candidiasis ALEX (obstructive sleep apnea) Pancytopenia due to chemotherapy Persistent atrial fibrillation Pleural effusion, right Radiation dermatitis Rectal pain Regional lymph node metastasis present Sleep apnea Smoker 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 classification Home Medications fluticasone propionate 2 spray NASAL DAILY PRN PRN 04/11/16 [History Last Taken Unknown] tiotropium bromide 2.5 mcg/actuation mist for inhalation 2 puff INHALATION DAILY #4 gm 07/25/20 [Rx Last Taken 08/13/21] doxazosin 2 mg tablet 2 mg PO DAILY #90 tablet 12/27/20 [Rx Last Taken 08/13/21] albuterol sulfate 90 mcg/actuation breath activated powder inhaler 2 inh INHALATION Q4H PRN PRN #1 each 01/21/21 [Rx Last Taken 08/13/21] pravastatin 40 mg tablet 40 mg PO DINNER #90 tablet 05/02/21 [Rx Last Taken 08/12/21] budesonide-formoterol [Symbicort] 2 puff INHALATION BID 06/05/21 [History Last Taken 08/13/21] cholecalciferol (vitamin D3) 1,250 mcg PO SA 06/05/21 [History Last Taken 08/10/21] furosemide 40 mg PO DAILY 30 Days #30 tab 06/12/21 [Rx Last Taken 08/13/21] metoprolol tartrate 50 mg PO BID #60 tab 06/12/21 [Rx Last Taken 08/13/21] Disability Placard #1 ea 06/20/21 [Rx Last Taken Unknown] amiodarone 200 mg tablet 200 mg PO DAILY #60 tab 06/26/21 [Rx Last Taken 08/13/21] rivaroxaban 20 mg tablet 20 mg PO QDAY #30 tablet 06/26/21 [Rx Last Taken 08/12/21] prednisone 10 mg tablet 10 mg PO QDAY #180 tab 06/27/21 [Rx Last Taken 08/13/21] pantoprazole 40 mg tablet,delayed release 40 mg PO DAILY #30 tab 07/15/21 [Rx Last Taken 08/13/21] nystatin 100,000 unit/mL oral suspension 5 ml PO Q6H #250 ml 07/25/21 [Rx Last Taken 08/13/21] polyethylene glycol 3350 17 gram oral powder packet 17 g PO DAILY PRN 30 Days #30 packet 07/25/21 [Rx Last Taken 08/13/21] fluoxetine 20 mg capsule 60 mg PO DAILY #270 cap 07/30/21 [Rx Last Taken 08/13/21] Allergy/AdvReac Type Severity Reaction Status Date / Time atezolizumab AdvReac Severe Pneumonia Verified 08/13/21 09:16 pioglitazone HCl [From Actos] AdvReac Severe Other Verified 08/13/21 09:16 Family History Father CAD (coronary artery disease) Hx CABG Family history of hypertension Family history of hyperlipidemia Hypertension CVA (cerebral vascular accident) Mother , Age 55 Sudden cardiac Family history of hypertension Sister Family history of hypertension Family history of hyperlipidemia Diabetes Grandfather CVA (cerebral vascular accident) Grandmother CVA (cerebral vascular accident) Uncle Lung cancer Surgical History History of cardioversion (03/2016) History of stomach ulcers History of thoracentesis (01/2020) History of tonsillectomy Pilonidal cyst (~1986) PORT PLACEMENT Social History Smoking Status: Former smoker quit date: 09/01/20 alcohol intake: never details: occasional substance use type: marijuana caffeine: Yes Type: carbonated beverages and coffee what type of physical activity do you participate in: none romero/faith: [employer] seatbelt use: always do you feel safe at home: Yes ROS ROS Narrative See HPI Physical Exam Const alert and no apparent distress General Appearance: cooperative HEENT normocephalic and head/scalp atraumatic Eyes PERRL, EOMs intact bilaterally and conjunctivae normal Neck supple General: trachea midline Chest inspection of chest normal Chest: symmetrical chest wall rise; Negative for crepitus Resp no use of accessory muscles Auscultation: diminished lung sounds; Negative for rales, rhonchi or wheezes Cardio regular rate, S1 normal heart sound, S2 normal heart sound, no murmurs, no rub and no gallops Rhythm: abnormal rhythm irregularly irregular GI normal to inspection, nondistended, normoactive bowel sounds Extremity General Extremity: edema; Negative for clubbing or cyanosis Skin Skin Narrative: Vascular insufficiency changes of the lower extremities Neuro CN's II-XII intact bilaterally and moves all extremities Psych cooperative and affect normal Lab / Micro Data Result Diagrams: 08/14/21 07:00 08/14/21 07:00 Labs: Laboratory Results - last 24 hr 08/13/21 14:04: COVID-19 (DOV) Not Detected 08/14/21 04:50: MRSA (PCR) POSITIVE H 08/14/21 07:00: WBC 5.7, RBC 3.36 L, Hgb 10.1 L, Hct 33.7 L, MCV 100.3 H, MCH 30.1, MCHC 30.0 L, RDW Std Deviation 69.8 H, RDW Coeff of Benjamin 18.9 H, Plt Count 179, MPV 9.0, Immature Gran % (Auto) 0.900, Neut % (Auto) 66.9, Lymph % (Auto) 24.0, [place] % (Auto) 7.1, Eos % (Auto) 0.9, Baso % (Auto) 0.2, Absolute Neuts (auto) 3.8, Absolute Lymphs (auto) 1.36, Nucleated RBC % 0, Anisocytosis 1+ 08/14/21 07:00: Sodium 140, Potassium 4.4, Chloride 101, Carbon Dioxide 38.0 H, Anion Gap 1 L, BUN 29 H, Creatinine 1.25, Estim Creat Clear Calc 81.01, Est GFR (MDRD) Af Amer 77, Est GFR (MDRD) Non-Af 63, BUN/Creatinine Ratio 23.2 H, Glucose 87, Calcium 9.3, Phosphorus 3.3, Magnesium 2.3 Micro: Microbiology 08/13/21 16:00 Mucosa - Nasopharyngeal Respiratory Panel (PCR) - Final Charges/Coding Visit Charges Inpatient E&M: 37131 Init Hosp L2
[2021-08-14] MEDS: Rivaroxaban 20 MG Tablet PO (16:54)
[2021-08-14] MEDS: Pravastatin 40 MG Tablet PO (16:54)
--- NOTE | 2021-08-14 20:32 | PCM.CONS.GEN ---
Assessment & Plan Assessment/Plan (1) Hypoxia: PLAN: No fever, minimal sputum, rapid improvement after admit. Not consistent with true bacterial pneumonia, on empiric vanc/zosyn for now. Has completed covid vaccine. Will see if he can give sputum sample. Will follow, thank you, d/w Dr. Castillo (2) Small cell lung cancer, right upper lobe: HPI Consult Data Date of Consult: 08/14/21 HPI Narrative HPI Narrative: RONALDO ADAM, is a 55 M who presented with progressive dyspnea on exertion over past few weeks. Took a shower, came back and sat was 47% off of O2. Minimal yellow sputum, no sick contacts, no fever or chills. Has gained about 30lbs in past few months. Notices increased BLE edema. Sleeps in a chair. Has gotten covid vaccine. On immunotherapy for small cell lung cancer. Came to ED, CT neg for PE. Admitted on vanc/zosyn, feeling better. Full ROS performed and neg except as noted above. [facility] Medical History Abnormal PET scan of colon Adrenal nodule Anxiety and depression Asthma, moderate persistent Atrial fibrillation Atrial fibrillation with rapid ventricular response BiPAP (biphasic positive airway pressure) dependence Bipolar disorder Borderline type 2 diabetes mellitus Chemotherapy induced neutropenia Chest pain CINV (chemotherapy-induced nausea and vomiting) Consolidation of right lower lobe of lung Diabetes mellitus Dyspnea Encounter for education Essential (primary) hypertension Fatigue Hyperlipidemia Irregular heart beat Longstanding persistent atrial fibrillation Lung cancer Marijuana abuse Migraines Nausea Nicotine dependence Nocturia Obesity Oral candidiasis ALEX (obstructive sleep apnea) Pancytopenia due to chemotherapy Persistent atrial fibrillation Pleural effusion, right Radiation dermatitis Rectal pain Regional lymph node metastasis present Sleep apnea Smoker 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 classification Home Medications fluticasone propionate 2 spray NASAL DAILY PRN PRN 04/11/16 [History Last Taken Unknown] tiotropium bromide 2.5 mcg/actuation mist for inhalation 2 puff INHALATION DAILY #4 gm 07/25/20 [Rx Last Taken 08/13/21] doxazosin 2 mg tablet 2 mg PO DAILY #90 tablet 12/27/20 [Rx Last Taken 08/13/21] albuterol sulfate 90 mcg/actuation breath activated powder inhaler 2 inh INHALATION Q4H PRN PRN #1 each 01/21/21 [Rx Last Taken 08/13/21] pravastatin 40 mg tablet 40 mg PO DINNER #90 tablet 05/02/21 [Rx Last Taken 08/12/21] budesonide-formoterol [Symbicort] 2 puff INHALATION BID 06/05/21 [History Last Taken 08/13/21] cholecalciferol (vitamin D3) 1,250 mcg PO SA 06/05/21 [History Last Taken 08/10/21] furosemide 40 mg PO DAILY 30 Days #30 tab 06/12/21 [Rx Last Taken 08/13/21] metoprolol tartrate 50 mg PO BID #60 tab 06/12/21 [Rx Last Taken 08/13/21] Disability Placard #1 ea 06/20/21 [Rx Last Taken Unknown] amiodarone 200 mg tablet 200 mg PO DAILY #60 tab 06/26/21 [Rx Last Taken 08/13/21] rivaroxaban 20 mg tablet 20 mg PO QDAY #30 tablet 06/26/21 [Rx Last Taken 08/12/21] prednisone 10 mg tablet 10 mg PO QDAY #180 tab 06/27/21 [Rx Last Taken 08/13/21] pantoprazole 40 mg tablet,delayed release 40 mg PO DAILY #30 tab 07/15/21 [Rx Last Taken 08/13/21] nystatin 100,000 unit/mL oral suspension 5 ml PO Q6H #250 ml 07/25/21 [Rx Last Taken 08/13/21] polyethylene glycol 3350 17 gram oral powder packet 17 g PO DAILY PRN 30 Days #30 packet 07/25/21 [Rx Last Taken 08/13/21] fluoxetine 20 mg capsule 60 mg PO DAILY #270 cap 07/30/21 [Rx Last Taken 08/13/21] Allergy/AdvReac Type Severity Reaction Status Date / Time atezolizumab AdvReac Severe Pneumonia Verified 08/13/21 09:16 pioglitazone HCl [From Actos] AdvReac Severe Other Verified 08/13/21 09:16 Family History Father CAD (coronary artery disease) Hx CABG Family history of hypertension Family history of hyperlipidemia Hypertension CVA (cerebral vascular accident) Mother , Age 55 Sudden cardiac Family history of hypertension Sister Family history of hypertension Family history of hyperlipidemia Diabetes Grandfather CVA (cerebral vascular accident) Grandmother CVA (cerebral vascular accident) Uncle Lung cancer Surgical History History of cardioversion (03/2016) History of stomach ulcers History of thoracentesis (01/2020) History of tonsillectomy Pilonidal cyst (~1986) PORT PLACEMENT Social History Smoking Status: Former smoker quit date: 09/01/20 alcohol intake: never details: occasional substance use type: marijuana caffeine: Yes Type: carbonated beverages and coffee what type of physical activity do you participate in: none romero/holiness: [employer] seatbelt use: always do you feel safe at home: Yes Physical Exam Const alert, oriented x3 and no apparent distress General Appearance: cooperative Exam Limitations: no limitations HEENT normocephalic and head/scalp atraumatic Eyes PERRL and EOMs intact bilaterally Neck supple and No nodes Resp clear to auscultation bilaterally Auscultation: diminished lung sounds Cardio regular rate and regular rhythm GI normal to inspection, nondistended, normoactive bowel sounds Extremity General Extremity: edema Skin no rashes or lesions noted Neuro CN's II-XII intact bilaterally Lab / Micro Data Result Diagrams: 08/14/21 07:00 08/14/21 07:00 Labs: Laboratory Results - last 24 hr 08/14/21 04:50: MRSA (PCR) POSITIVE H 08/14/21 07:00: WBC 5.7, RBC 3.36 L, Hgb 10.1 L, Hct 33.7 L, MCV 100.3 H, MCH 30.1, MCHC 30.0 L, RDW Std Deviation 69.8 H, RDW Coeff of Benjamin 18.9 H, Plt Count 179, MPV 9.0, Immature Gran % (Auto) 0.900, Neut % (Auto) 66.9, Lymph % (Auto) 24.0, [place] % (Auto) 7.1, Eos % (Auto) 0.9, Baso % (Auto) 0.2, Absolute Neuts (auto) 3.8, Absolute Lymphs (auto) 1.36, Nucleated RBC % 0, Anisocytosis 1+ 08/14/21 07:00: Sodium 140, Potassium 4.4, Chloride 101, Carbon Dioxide 38.0 H, Anion Gap 1 L, BUN 29 H, Creatinine 1.25, Estim Creat Clear Calc 81.01, Est GFR (MDRD) Af Amer 77, Est GFR (MDRD) Non-Af 63, BUN/Creatinine Ratio 23.2 H, Glucose 87, Calcium 9.3, Phosphorus 3.3, Magnesium 2.3 Micro: Microbiology 08/13/21 16:00 Mucosa - Nasopharyngeal Respiratory Panel (PCR) - Final
[2021-08-15] VITALS (16 sets, daily range): BP systolic 128–152; BP diastolic 62–105; PULSE 56–74; RESP 12–21; TEMP 36.1–36.8; O2SAT 93–100
[2021-08-15 04:27] LABS: Vancomycin, Trough Level 23.1 ug/mL (5.0-15.0)
--- NOTE | 2021-08-15 04:34 | PCM.RX.CS ---
Consult Pharmacy has been consulted to manage selected antiobiotic: Vancomycin Type of Consult: Follow-up Suspected Infection: Pneumonia Prior Doses of Antibiotics Received/Current Regimen: Medications Vancomycin HCl 1,500 mg/ (Sodium Chloride) 530 mls @ 250 mls/hr IV Q12H CLINT Last Admin: 08/15/21 03:28 Dose: 250 mls/hr Labs: Sodium 140 mmol/L (136-145) 08/14/21 07:00 Potassium 4.4 mmol/L (3.5-5.1) 08/14/21 07:00 Chloride 101 mmol/L (98-107) 08/14/21 07:00 Carbon Dioxide 38.0 mmol/L (21.0-32.0) H 08/14/21 07:00 Anion Gap 1 (5-15) L 08/14/21 07:00 BUN 29 mg/dL (7-18) H 08/14/21 07:00 Creatinine 1.25 mg/dL (0.70-1.30) 08/14/21 07:00 Est GFR (MDRD) Af Amer 77 mL/min (>60) 08/14/21 07:00 Est GFR (MDRD) Non-Af 63 mL/min (>60) 08/14/21 07:00 BUN/Creatinine Ratio 23.2 RATIO (10-20) H 08/14/21 07:00 Glucose 87 mg/dL (74-106) 08/14/21 07:00 Vancomycin Trough 23.1 ug/mL (5.0-15.0) H 08/15/21 03:42 Microbiology: Microbiology 08/14/21 17:50 Urine, Clean Catch Legionella Antigen - Final 08/14/21 17:50 Urine, Clean Catch Streptococcus pneumoniae Antigen (M - Final 08/13/21 16:00 Mucosa - Nasopharyngeal Respiratory Panel (PCR) - Final 08/13/21 09:55 Nasal Secretion SARS-CoV-2 Antigen (Rapid) - Final Weight used for dosin kg Estimated Creatinine Clearance: 81 Goal Trough: 15-20 mcg/mL Pharmacy Plan for Drug Dosing: Vancomycin trough was drawn 08/15 at 0342, however the next dose had already been hung at 0328. This explains the high level of 23.1, but doesn't allow for accurate dosing. Another trough will be drawn prior to the next dose. Pharmacy Service will continue to monitor and adjust dosing as required. Follow-Up Labs: Trough Vancomycin Labs to be done on [date and time ordered]: 08/15/21 @[id number]
[2021-08-15] MEDS: Ipratropium/Albuterol Sulfate 3 ML AMPUL.NEB INHALATION ×3 (07:15→19:25)
[2021-08-15] MEDS: predniSONE 10 MG Tablet 40 MG PO (08:33)
--- NOTE | 2021-08-15 08:54 | EKGRS_ITS ---
Test Reason : CHEST PAIN Blood Pressure : / mmHG Vent. Rate : 076 BPM Atrial Rate : 076 BPM P-R Int : 000 ms QRS Dur : 090 ms QT Int : 400 ms P-R-T Axes : 000 -12 094 degrees QTc Int : 450 ms Atrial fibrillation Abnormal ECG When compared with ECG of 13-AUG-2021 09:25, No significant change was found Confirmed by ANNA BARKLEY, HÉCTOR ([id number]), script editor SARY OLIVO ([id number]) on 08/15/2021 2:14:47 PM Referred By: ANTHONY Confirmed By:HÉCTOR CASTILLO MD
[2021-08-15 09:26] LABS: Absolute Lymphocyte Count 1.29 X10^3/uL (0.83-4.51); Absolute Neutrophil Count 4.1 X10^3/uL (2.0-7.7); Basophil# 0.01 X10^3/uL; Basophil% 0.2 % (0-1); Eosinophil# 0.02 X10^3/uL; Eosinophils% 0.3 % (0-5); Hematocrit 34.6 % (40-54); Hemoglobin 10.1 g/dL (13.0-16.5); Lymphocyte # 1.29 X10^3/ul (0.83-4.51); Mean Corp Hgb Conc 29.2 g/dL (32-36); Mean Corpuscular Hgb 30.3 pg (27.0-32.0); Mean Corpuscular Volume 103.9 fL (80-94); Mean Platelet Vol. 10.5 fl (6.2-12.0); Monocyte# 0.47 X10^3/uL; NRBC Flagged by Analyzer 0 % (0-5); Neutrophil # 4.05 X10^3/uL (2.7-7.7); POSITIVE MORPHOLOGY YES; Platelet Count 189 K/mm3 (150-450); RBC Distribution Width CV 18.9 % (11.6-14.6); RBC Distribution Width SD 73.1 fl (35.1-43.9); Red Blood Count 3.33 M/mm3 (4.6-6.2); White Blood Count 5.9 K/mm3 (4.4-11.0)
[2021-08-15 09:27] LABS: Differential Indicated SCAN CRITERIA MET
[2021-08-15 09:50] LABS: Anion Gap 8 (5-15); BUN 27 mg/dL (7-18); BUN/Creat Ratio 24.1 RATIO (10-20); Calcium,Total 8.8 mg/dL (8.5-10.1); Chloride 104 mmol/L (98-107); Creatinine, Serum 1.12 mg/dL (0.70-1.30); EST Glomerular Filtration Rate 72 mL/min (>60); Est Glom Filt Rate - Afr Amer 87 mL/min (>60); Estimated Creatinine Clearance 90.42 ml/min; Glucose 107 mg/dL (74-106); Potassium 4.2 mmol/L (3.5-5.1); Sodium Level 140 mmol/L (136-145)
[2021-08-15] MEDS: Furosemide 40 MG/4 ML Vial IV (10:04)
[2021-08-15] MEDS: Metoprolol Tartrate 50 MG Tablet PO ×2 (10:05→21:42)
[2021-08-15] MEDS: guaiFENesin 1,200 MG Tablet 1200 MG PO ×2 (10:05→21:42)
[2021-08-15] MEDS: FLUoxetine 20 MG Capsule 60 MG PO (10:06)
[2021-08-15] MEDS: Nystatin Powder 15gm Bottle 1 APPLIC TOPICAL ×2 (10:06→21:42)
[2021-08-15] MEDS: Doxazosin 1 MG Tablet 2 MG PO (10:06)
[2021-08-15] MEDS: Amiodarone 200 MG Tablet PO (10:06)
[2021-08-15] MEDS: Pantoprazole Sodium 40 MG Tablet PO (10:06)
[2021-08-15 10:19] LABS: Anisocytosis 2+; Differential Comment SCANNED; Macrocytosis 1+; Microcytosis 1+
--- NOTE | 2021-08-15 11:33 | CASEMGMT ---
Call to Gill at palliative and she states pt was referred previously but did not sign up for palliative at this time and per CM note from yesterday, pt is interested in palliative c/s again. Referral faxed and order placed. Pelon BARR CM
--- NOTE | 2021-08-15 14:51 | PN.CC_ITS ---
Assessment & Plan Assessment/Plan (1) Hypoxia: (2) ALEX (obstructive sleep apnea): (3) Small cell lung cancer, right upper lobe: (4) Consolidation of right lower lobe of lung: PLAN: RECOMMENDATIONS: 1. Antibiotics per infectious disease. Consider discontinuation from my perspective 2. Aggressive diuretic therapy 3. Wean oxygen as tolerated 4. Hold on thoracentesis for now 5. Okay to continue with baseline medications from a respiratory standpoint IMPRESSIONS: 1. Acute hypoxic respiratory failure Unclear etiology at this time. Patient does have staph growing in his sputum, but does not appear sick enough to be staph pneumonia. Patient recently had an inflammatory state associated with immunotherapy and still has right lower lobe findings. Patient does have a pleural effusion, but this does not appear to be significant enough to lead to the current findings. Patient does report significant dietary indiscretions and a significant weight gain. With rapid response to diuretic therapy and lack of constitutional symptoms consistent with pneumonia, I would be okay with discontinuation of antibiotics. Defer to infectious disease. Wean oxygen as tolerated. 2. ALEX/stage II COPD/recent immunotherapy induced pneumonitis Patient should be continued on his baseline therapy at a minimum. Patient is on CPAP 18 cm of water at baseline. Patient does not appear to be in acute exacerbation of COPD. Okay to continue baseline medications from my perspective. Patient may be more open to BiPAP therapy while this hypoxic. 3. History of A. fib/acute on chronic diastolic CHF/small cell lung cancer/anxiety/depression/bipolar/hyperlipidemia Complicates care, management, recovery and prognosis. Patient would likely benefit from aggressive diuresis. Continue with baseline psychiatric medications. Subjective Subjective Patient did well overnight. Patient feels subjectively improved compared to previous. Patient did state that he is gained approximately 30 pounds and zainab terrazas his dry weight is around 270. Patient states he is not coughing. No fevers or chills have been noted. Objective Data Objective Data Vital Signs: Vital Signs Temp Pulse Resp BP Pulse Ox 36.7 C 65 18 133/83 H 93 08/15/21 09:59 08/15/21 13:06 08/15/21 13:06 08/15/21 10:05 08/15/21 09:59 Oxygen Flow Rate (L/min) 4 Oxygen Delivery Method Nasal Cannula Weight: 134 kg Body Mass Index (BMI) 35.9 Intake & Output: Intake and Output for Last 24 Hours 08/13/21 08/14/21 08/15/21 23:59 23:59 23:59 Intake Total 1375 / 1375 1470 / 1670 1490 / 1490 Output Total 950 / 950 3070 / 3270 1100 / 1100 Balance 425 / 425 -1600 / -1600 390 / 390 Lab / Micro Data Result Diagrams: 08/15/21 03:42 08/15/21 03:42 Labs: Laboratory Results - last 24 hr 08/15/21 03:42: Vancomycin Trough 23.1 H 08/15/21 03:42: WBC 5.9, RBC 3.33 L, Hgb 10.1 L, Hct 34.6 L, MCV 103.9 H, MCH 30.3, MCHC 29.2 L, RDW Std Deviation 73.1 H, RDW Coeff of Benjamin 18.9 H, Plt Count 189, MPV 10.5, Immature Gran % (Auto) 0.500, Neut % (Auto) 69.0, Lymph % (Auto) 22.0, [place] % (Auto) 8.0, Eos % (Auto) 0.3, Baso % (Auto) 0.2, Absolute Neuts (auto) 4.1, Absolute Lymphs (auto) 1.29, Nucleated RBC % 0, Differential Comment SCANNED, Anisocytosis 2+, Microcytosis 1+, Macrocytosis 1+ 08/15/21 03:42: Sodium 140, Potassium 4.2, Chloride 104, Carbon Dioxide 28.0, Anion Gap 8, BUN 27 H, Creatinine 1.12, Estim Creat Clear Calc 90.42, Est GFR (MDRD) Af Amer 87, Est GFR (MDRD) Non-Af 72, BUN/Creatinine Ratio 24.1 H, Glucose 107 H, Calcium 8.8 Micro: Microbiology 08/13/21 12:50 Blood Culture (Wb) - Anticubital Right Blood Culture - Preliminary No growth in 48 hours. 08/13/21 09:25 Blood Culture (Wb) - Chest Blood Culture - Preliminary No growth in 48 hours. 08/14/21 17:50 Urine, Clean Catch Legionella Antigen - Final 08/14/21 17:50 Urine, Clean Catch Streptococcus pneumoniae Antigen (M - Final 08/13/21 16:00 Mucosa - Nasopharyngeal Respiratory Panel (PCR) - Final 08/13/21 09:55 Nasal Secretion SARS-CoV-2 Antigen (Rapid) - Final Physical Exam Const alert and no apparent distress General Appearance: cooperative HEENT normocephalic and head/scalp atraumatic Eyes PERRL, EOMs intact bilaterally and conjunctivae normal Neck supple General: trachea midline Chest inspection of chest normal Chest: symmetrical chest wall rise; Negative for crepitus Resp no use of accessory muscles Auscultation: diminished lung sounds; Negative for rales, rhonchi or wheezes Cardio regular rate, S1 normal heart sound, S2 normal heart sound, no murmurs, no rub and no gallops Rhythm: abnormal rhythm irregularly irregular GI normal to inspection, nondistended, normoactive bowel sounds Extremity General Extremity: edema; Negative for clubbing or cyanosis Skin Skin Narrative: Vascular insufficiency changes of the lower extremities Neuro CN's II-XII intact bilaterally and moves all extremities Psych cooperative and affect normal Charges/Coding Visit Charges Inpatient E&M: 30651 Subs Hosp L2
--- NOTE | 2021-08-15 16:18 | PCM.RX.CS ---
Consult Pharmacy has been consulted to manage selected antiobiotic: Vancomycin Type of Consult: Follow-up Suspected Infection: Pneumonia Labs: Sodium 140 mmol/L (136-145) 08/15/21 03:42 Potassium 4.2 mmol/L (3.5-5.1) 08/15/21 03:42 Chloride 104 mmol/L (98-107) 08/15/21 03:42 Carbon Dioxide 28.0 mmol/L (21.0-32.0) 08/15/21 03:42 Anion Gap 8 (5-15) 08/15/21 03:42 BUN 27 mg/dL (7-18) H 08/15/21 03:42 Creatinine 1.12 mg/dL (0.70-1.30) 08/15/21 03:42 Est GFR (MDRD) Af Amer 87 mL/min (>60) 08/15/21 03:42 Est GFR (MDRD) Non-Af 72 mL/min (>60) 08/15/21 03:42 BUN/Creatinine Ratio 24.1 RATIO (10-20) H 08/15/21 03:42 Glucose 107 mg/dL (74-106) H 08/15/21 03:42 Vancomycin Trough 20.0 ug/mL (5.0-15.0) H 08/15/21 15:20 Microbiology: Microbiology 08/13/21 12:50 Blood Culture (Wb) - Anticubital Right Blood Culture - Preliminary No growth in 48 hours. 08/13/21 09:25 Blood Culture (Wb) - Chest Blood Culture - Preliminary No growth in 48 hours. 08/14/21 17:50 Urine, Clean Catch Legionella Antigen - Final 08/14/21 17:50 Urine, Clean Catch Streptococcus pneumoniae Antigen (M - Final 08/13/21 16:00 Mucosa - Nasopharyngeal Respiratory Panel (PCR) - Final 08/13/21 09:55 Nasal Secretion SARS-CoV-2 Antigen (Rapid) - Final Goal Trough: 15-20 mcg/mL Pharmacy Plan for Drug Dosing: VANCOMYCIN LEVEL RECEIVED Current Vancomycin Dose: 1500mg q12h (,) Number of Doses Received: 2000mg x1, 1500mg x4 Vancomycin Level: 20.0 Hours Since Last Dose: 12 Renal Function: SrCr 1.12 Renal Function Trend: stable Lab/Micro: Vancomycin Plan/Comments: recommend decreasing dose to 1250mg q12h. pt trough resulted at 20.0, and its possible to keep accumulating. will check trough before the 3rd dose and adjust accordingly Pending Level: 08/17/21 at 1730 Pharmacy Service will continue to monitor and adjust dosing as required. Follow-Up Labs: Trough Vancomycin - 08/17/21 at 1730
[2021-08-15] MEDS: Furosemide 40 MG Tablet PO (17:05)
[2021-08-15] MEDS: Rivaroxaban 20 MG Tablet PO (17:06)
[2021-08-15] MEDS: Pravastatin 40 MG Tablet PO (18:15)
--- NOTE | 2021-08-15 18:22 | PCM.PN.HOSP ---
Subjective Subjective Seen and examined. Patient shortness of breath has improved. No chest pain. Still feels tired. Dyspnea on exertion Objective Data Objective Data Vital Signs: Vital Signs Temp Pulse Resp BP Pulse Ox 98.2 F 72 16 149/79 H 96 08/15/21 17:04 08/15/21 17:04 08/15/21 17:04 08/15/21 17:04 08/15/21 17:04 Oxygen Flow Rate (L/min) 3 Oxygen Delivery Method Nasal Cannula Weight: 295 lb 6.711 oz Body Mass Index (BMI) 35.9 Intake & Output: Intake and Output for Last 24 Hours 08/13/21 08/14/21 08/15/21 23:59 23:59 23:59 Intake Total 1375 / 1375 1470 / 1670 1490 / 1490 Output Total 950 / 950 3070 / 3270 1100 / 1100 Balance 425 / 425 -1600 / -1600 390 / 390 Lab / Micro Data Result Diagrams: 08/15/21 03:42 08/15/21 03:42 Labs: Laboratory Results - last 24 hr 08/15/21 03:42: Vancomycin Trough 23.1 H 08/15/21 03:42: WBC 5.9, RBC 3.33 L, Hgb 10.1 L, Hct 34.6 L, MCV 103.9 H, MCH 30.3, MCHC 29.2 L, RDW Std Deviation 73.1 H, RDW Coeff of Benjamin 18.9 H, Plt Count 189, MPV 10.5, Immature Gran % (Auto) 0.500, Neut % (Auto) 69.0, Lymph % (Auto) 22.0, [place] % (Auto) 8.0, Eos % (Auto) 0.3, Baso % (Auto) 0.2, Absolute Neuts (auto) 4.1, Absolute Lymphs (auto) 1.29, Nucleated RBC % 0, Differential Comment SCANNED, Anisocytosis 2+, Microcytosis 1+, Macrocytosis 1+ 08/15/21 03:42: Sodium 140, Potassium 4.2, Chloride 104, Carbon Dioxide 28.0, Anion Gap 8, BUN 27 H, Creatinine 1.12, Estim Creat Clear Calc 90.42, Est GFR (MDRD) Af Amer 87, Est GFR (MDRD) Non-Af 72, BUN/Creatinine Ratio 24.1 H, Glucose 107 H, Calcium 8.8 08/15/21 15:20: Vancomycin Trough 20.0 H Micro: Microbiology 08/13/21 12:50 Blood Culture (Wb) - Anticubital Right Blood Culture - Preliminary No growth in 48 hours. 08/13/21 09:25 Blood Culture (Wb) - Chest Blood Culture - Preliminary No growth in 48 hours. 08/14/21 17:50 Urine, Clean Catch Legionella Antigen - Final 08/14/21 17:50 Urine, Clean Catch Streptococcus pneumoniae Antigen (M - Final 08/13/21 16:00 Mucosa - Nasopharyngeal Respiratory Panel (PCR) - Final 08/13/21 09:55 Nasal Secretion SARS-CoV-2 Antigen (Rapid) - Final Physical Exam Narrative Physical exam: General: Alert, Oriented x3, Cooperative. HEENT: Atraumatic, PERRLA, EOMI, Normocephalic Oral: No Gingival or Mucosal Lesions/ Ulcerations Neck: Supple, No JVD, Negative Carotid Bruits. Left upper chest MediPort present Lungs: Air entry diminished in right posterior lung. Right more than left Bilateral pleural effusion. No crepitation heard. Cardiovascular: A. fib, heart rate controlled. Normal S1, Normal S2, No murmurs. Abdomen: Bowel Sounds Present, Soft, Non Tender, Non-Distended : No renal angle tenderness. No suprapubic tenderness. Extremities: Bilateral leg moderate edema, Capillary Refill Less than 3 Seconds Skin: No rashes, No breakdown Musculoskeletal: No Tenderness to Palpation of Joints or Extremities Neurological: Cranial nerves II-XII grossly intact, DTR 2+/4 and Symmetrical, Neuro grossly intact Psych/Mental Status: Normal Affect, Appropriate. Assessment & Plan Assessment/Plan (1) Pneumonia: PLAN: 1. Acute on chronic hypoxic respiratory failure due to RLL pneumonia, bilateral R> L moderate pleural effusion, CHF exacerbation: Lactic acid elevated which qualifies for severe sepsis. Lactic acid may also be admitted by hypoxia, effective plasma volume. Admitted in PCU. Discussed with extension course counselor. Started on vancomycin and Zosyn. 08/14: Respiratory panel negative. MRSA PCR nasal screen positive continue IV antibiotics. [employer] and ID are consulted. 08/15: ID consult reviewed. On empiric Vanco and Zosyn. As per his note, not consistent with true bacterial pneumonia. Urinary antigens are negative. 2. Acute on chronic HFpEF with chronic/persistent A. fib: BNP elevated. High-sensitivity?troponin normal. No chest pain. Patient recent 2D echo in May 2021 shows EF 55% with normal LV systolic function. Normal RV size and systolic function. No thrombus in LA appendage. Lasix is started on 40 mg IV twice daily as per tolerated by hemodynamics, electrolytes and kidney function. Patient on Xarelto continued. Heart rate is controlled. Continue amiodarone. Patient follows Dr. Schaefer. 08/14: Patient had significant rise in bicarb and BUN after 1 dose of Lasix. Lisinopril decreased to 40 mg IV daily. 08/15: Continue diuretic treatment as per tolerated. Does not need thoracocentesis for now. Bicarb is trended down to 28. BUN is holding up 27. Patient has chronic leg edema also due to varicose vein and venous reflux. Grayish discoloration of both lower legs. Anticipate discharge tomorrow. 3. COPD, metastatic small cell cancer, recurrent bilateral pleural effusion, possible malignant effusion: Patient follows Dr. Castillo on baseline inhalers. DuoNeb every 6 hourly. Does not seem to be in acute exacerbation. Follows Dr. Johnson. Patient had right sided thoracocentesis last time. Monitor patient stated there was not much effusion. 4. Other multiple comorbidities include hypertension, dyslipidemia, anxiety and depression, ALEX on CPAP at night, history of smoking. As per patient he quit smoking. No medication reconciliation done. Living will/advanced directive/end of life care: Full code. Microbiology Past 72 Hours 08/13/21 12:50 Blood Culture (Wb) - Anticubital Right Blood Culture - Preliminary No growth in 48 hours. 08/13/21 09:25 Blood Culture (Wb) - Chest Blood Culture - Preliminary No growth in 48 hours. 08/14/21 17:50 Urine, Clean Catch Legionella Antigen - Final 08/14/21 17:50 Urine, Clean Catch Streptococcus pneumoniae Antigen (M - Final 08/13/21 16:00 Mucosa - Nasopharyngeal Respiratory Panel (PCR) - Final 08/13/21 09:55 Nasal Secretion SARS-CoV-2 Antigen (Rapid) - Final Laboratory Results 08/15/21 03:42: Vancomycin Trough 23.1 H 08/15/21 03:42: WBC 5.9, RBC 3.33 L, Hgb 10.1 L, Hct 34.6 L, MCV 103.9 H, MCH 30.3, MCHC 29.2 L, RDW Std Deviation 73.1 H, RDW Coeff of Benjamin 18.9 H, Plt Count 189, MPV 10.5, Immature Gran % (Auto) 0.500, Neut % (Auto) 69.0, Lymph % (Auto) 22.0, Cassia % (Auto) 8.0, Eos % (Auto) 0.3, Baso % (Auto) 0.2, Absolute Neuts (auto) 4.1, Absolute Lymphs (auto) 1.29, Nucleated RBC % 0, Differential Comment SCANNED, Anisocytosis 2+, Microcytosis 1+, Macrocytosis 1+ 08/15/21 03:42: Sodium 140, Potassium 4.2, Chloride 104, Carbon Dioxide 28.0, Anion Gap 8, BUN 27 H, Creatinine 1.12, Estim Creat Clear Calc 90.42, Est GFR (MDRD) Af Amer 87, Est GFR (MDRD) Non-Af 72, BUN/Creatinine Ratio 24.1 H, Glucose 107 H, Calcium 8.8 08/15/21 15:20: Vancomycin Trough 20.0 H Charges/Coding Visit Charges Inpatient E&M: 57433 Subs Hosp L2
[2021-08-16] VITALS (8 sets, daily range): BP systolic 141–161; BP diastolic 92–100; PULSE 55–64; RESP 13–20; TEMP 35.8–36.7; O2SAT 93–98
[2021-08-16 05:22] LABS: Absolute Lymphocyte Count 1.59 X10^3/uL (0.83-4.51); Absolute Neutrophil Count 4.1 X10^3/uL (2.0-7.7); Basophil# 0.01 X10^3/uL; Basophil% 0.2 % (0-1); Eosinophil# 0.04 X10^3/uL; Eosinophils% 0.6 % (0-5); Hemoglobin 11.1 g/dL (13.0-16.5); Lymphocyte # 1.59 X10^3/ul (0.83-4.51); Lymphocyte % 25.4 % (19-41); Mean Corpuscular Hgb 29.5 pg (27.0-32.0); Mean Corpuscular Volume 98.4 fL (80-94); Mean Platelet Vol. 9.7 fl (6.2-12.0); Monocyte# 0.48 X10^3/uL; Monocyte% 7.7 % (0-10); NRBC Flagged by Analyzer 0 % (0-5); Neutrophil # 4.11 X10^3/uL (2.7-7.7); Neutrophil % 65.6 % (47-70); POSITIVE MORPHOLOGY YES; Platelet Count 213 K/mm3 (150-450); RBC Distribution Width CV 18.6 % (11.6-14.6); RBC Distribution Width SD 68.3 fl (35.1-43.9); Red Blood Count 3.76 M/mm3 (4.6-6.2); White Blood Count 6.3 K/mm3 (4.4-11.0)
[2021-08-16 05:32] LABS: Differential Indicated SCAN CRITERIA MET
[2021-08-16] MEDS: NYSTATIN 500,000 UNIT/5 ML UDC 500000 UNIT PO (05:41)
[2021-08-16 05:47] LABS: Anion Gap 6 (5-15); BUN 26 mg/dL (7-18); Calcium,Total 9.4 mg/dL (8.5-10.1); Chloride 101 mmol/L (98-107); Creatinine, Serum 1.24 mg/dL (0.70-1.30); EST Glomerular Filtration Rate 64 mL/min (>60); Est Glom Filt Rate - Afr Amer 77 mL/min (>60); Estimated Creatinine Clearance 81.67 ml/min; Glucose 94 mg/dL (74-106); Potassium 3.6 mmol/L (3.5-5.1); Sodium Level 137 mmol/L (136-145)
[2021-08-16 06:40] LABS: Anisocytosis RARE; Differential Comment SCANNED; Macrocytosis RARE
[2021-08-16] MEDS: Ipratropium/Albuterol Sulfate 3 ML AMPUL.NEB INHALATION (06:46)
[2021-08-16] MEDS: predniSONE 10 MG Tablet 40 MG PO (08:55)
[2021-08-16] MEDS: Potassium Chloride Oral Tablet 20 MEQ 40 MEQ PO (08:55)
[2021-08-16] MEDS: Furosemide 40 MG/4 ML Vial IV (08:56)
[2021-08-16] MEDS: Metoprolol Tartrate 50 MG Tablet PO (08:56)
[2021-08-16] MEDS: guaiFENesin 1,200 MG Tablet 1200 MG PO (08:56)
[2021-08-16] MEDS: Pantoprazole Sodium 40 MG Tablet PO (08:56)
[2021-08-16] MEDS: FLUoxetine 20 MG Capsule 60 MG PO (08:56)
[2021-08-16] MEDS: Doxazosin 1 MG Tablet 2 MG PO (08:56)
[2021-08-16] MEDS: Amiodarone 200 MG Tablet PO (08:57)
[2021-08-16] MEDS: Nystatin Powder 15gm Bottle 1 APPLIC TOPICAL (08:57)
--- NOTE | 2021-08-16 09:15 | CASEMGMT ---
Addendum entered by Miguelina Emerson 08/16/21 11:48: This RN CM to room and pt updated on all, voices understanding. Pt voices no further questions/concerns/needs. Pt ready for discharge. Pelon BARR CM Original Note: Per [facility], pt's home oxygen order is for 5L at rest and for 6L nc with exertion. Val BARR aware and pt tested on same. Per Val BARR, pt does not qualify for any increased oxygen at this time. Order for BSC faxed to [facility] as [facility] does not supply BSC's. CM to follow for any further discharge planning/needs. Pelon BARR CM
--- NOTE | 2021-08-16 10:40 | PCM.PN.INT ---
Assessment & Plan Assessment/Plan (1) Hypoxia: (2) ALEX (obstructive sleep apnea): (3) Small cell lung cancer, right upper lobe: (4) Consolidation of right lower lobe of lung: PLAN: RECOMMENDATIONS: 1. No antibiotics indicated from my perspective 2. Continue low-salt diet and appropriate diuretic therapy 3. Wean oxygen as tolerated 4. Hold on thoracentesis for now 5. Okay to follow-up with pulmonary as previously scheduled IMPRESSIONS: 1. Acute hypoxic respiratory failure Unclear etiology at this time. Patient does have staph growing in his sputum, but does not appear sick enough to be staph pneumonia. Patient recently had an inflammatory state associated with immunotherapy and still has right lower lobe findings. Patient does have a pleural effusion, but this does not appear to be significant enough to lead to the current findings. Patient does report significant dietary indiscretions and a significant weight gain. With rapid response to diuretic therapy and lack of constitutional symptoms consistent with pneumonia, I would be okay with discontinuation of antibiotics. Defer to infectious disease. Wean oxygen as tolerated. Long discussion with the patient about the appropriate diet and diuretic regimen. 2. ALEX/stage II COPD/recent immunotherapy induced pneumonitis Patient should be continued on his baseline therapy at a minimum. Patient is on CPAP 18 cm of water at baseline. Patient does not appear to be in acute exacerbation of COPD. Okay to continue baseline medications from my perspective. Patient may be more open to BiPAP therapy while this hypoxic. 3. History of A. fib/acute on chronic diastolic CHF/small cell lung cancer/anxiety/depression/bipolar/hyperlipidemia Complicates care, management, recovery and prognosis. Patient would likely benefit from aggressive diuresis. Continue with baseline psychiatric medications. Subjective Subjective Patient did well overnight. Patient states he was able to walk around his room on 3 L maintain a saturation of 95%. Long discussion with the patient about the appropriate low-salt diet and using daily weights to guide diuretic needs. Objective Data Objective Data Vital Signs: Vital Signs Temp Pulse Resp BP Pulse Ox 35.8 C L 61 13 161/100 H 96 08/16/21 08:17 08/16/21 08:56 08/16/21 08:17 08/16/21 08:17 08/16/21 09:15 Oxygen Flow Rate (L/min) [ 3 AMBULATING with Oxygen #1] Oxygen Flow Rate (L/min) [At 3 REST with Oxygen] Oxygen Flow Rate (L/min) 3 Oxygen Delivery Method Nasal Cannula Weight: 130.9 kg Body Mass Index (BMI) 35.9 Intake & Output: Intake and Output for Last 24 Hours 08/14/21 08/15/21 08/16/21 23:59 23:59 23:59 Intake Total 1470 / 1670 1935 / 2235 915 / 915 Output Total 3070 / 3270 2700 / 2950 650 / 650 Balance -1600 / -1600 -765 / -715 265 / 265 Lab / Micro Data Result Diagrams: 08/16/21 05:00 08/16/21 05:00 Labs: Laboratory Results - last 24 hr 08/15/21 15:20: Vancomycin Trough 20.0 H 08/16/21 05:00: WBC 6.3, RBC 3.76 L, Hgb 11.1 L, Hct 37.0 L, MCV 98.4 H D, MCH 29.5, MCHC 30.0 L, RDW Std Deviation 68.3 H, RDW Coeff of Benjamin 18.6 H, Plt Count 213, MPV 9.7, Immature Gran % (Auto) 0.500, Neut % (Auto) 65.6, Lymph % (Auto) 25.4, [place] % (Auto) 7.7, Eos % (Auto) 0.6, Baso % (Auto) 0.2, Absolute Neuts (auto) 4.1, Absolute Lymphs (auto) 1.59, Nucleated RBC % 0, Differential Comment SCANNED, Anisocytosis RARE, Macrocytosis RARE 08/16/21 05:00: Sodium 137, Potassium 3.6, Chloride 101, Carbon Dioxide 30.0, Anion Gap 6, BUN 26 H, Creatinine 1.24, Estim Creat Clear Calc 81.67, Est GFR (MDRD) Af Amer 77, Est GFR (MDRD) Non-Af 64, BUN/Creatinine Ratio 21.0 H, Glucose 94, Calcium 9.4 Micro: Microbiology 08/13/21 12:50 Blood Culture (Wb) - Anticubital Right Blood Culture - Preliminary No growth in 48 hours. 08/13/21 09:25 Blood Culture (Wb) - Chest Blood Culture - Preliminary No growth in 48 hours. 08/14/21 17:50 Urine, Clean Catch Legionella Antigen - Final 08/14/21 17:50 Urine, Clean Catch Streptococcus pneumoniae Antigen (M - Final 08/13/21 16:00 Mucosa - Nasopharyngeal Respiratory Panel (PCR) - Final 08/13/21 09:55 Nasal Secretion SARS-CoV-2 Antigen (Rapid) - Final Physical Exam Const alert and no apparent distress General Appearance: cooperative HEENT normocephalic and head/scalp atraumatic Eyes PERRL, EOMs intact bilaterally and conjunctivae normal Neck supple General: trachea midline Chest inspection of chest normal Chest: symmetrical chest wall rise; Negative for crepitus Resp normal respiratory effort and no use of accessory muscles Effort and Inspection: able to speak in complete sentences Auscultation: clear to auscultation bilaterally; Negative for rales, rhonchi or wheezes Cardio regular rate, S1 normal heart sound, S2 normal heart sound, no murmurs, no rub and no gallops Rhythm: abnormal rhythm irregularly irregular GI normal to inspection, nondistended, normoactive bowel sounds Extremity General Extremity: edema; Negative for clubbing or cyanosis Skin Skin Narrative: Vascular insufficiency changes of the lower extremities Neuro CN's II-XII intact bilaterally and moves all extremities Psych cooperative and affect normal Charges/Coding Visit Charges Inpatient E&M: 28827 Subs Hosp L2
--- NOTE | 2021-08-16 10:53 | PCM.DC ---
Discharge Instructions Diet Discharge Diet: No restrictions Activity Discharge Activity: Return to Normal Activity Weight Bearing Status: Full weight bearing Follow Up Care Test Results: Test results from this visit will be discussed in further detail at your follow-up appointment, if applicable. Discharge Plan Admission Admit Date/Time: 08/13/21 13:04 Primary Reason for Your Visit: respiratory failure Attending Provider: Morris Chowdhury Primary Care Provider: Lizzeth Velasquez Consulting Providers: Pee Castillo ; Carlitos Philip ; Amanda Rivero NP ; Dimas Levin Instructions Patient Instructions: ED Chest Pain, Noncardiac Additional Instructions / Restrictions: Continue CPAP at home, use oxygen at 3 L at rest and while ambulating Discharge Orders/Prescriptions Prescriptions: New potassium chloride 10 mEq capsule, extended release 20 meq PO DAILY Qty: 60 RF: 0 Continued prednisone 10 mg tablet 10 mg PO QDAY Qty: 180 RF: 2 (DME) Disability Placard See Rx Instructions .Route .MEDSUPPLY Qty: 1 RF: 0 rivaroxaban 20 mg tablet 20 mg PO QDAY Qty: 30 RF: 12 amiodarone 200 mg tablet 200 mg PO DAILY Qty: 60 RF: 3 fluticasone propionate 1 SPRAY spray,suspension 2 spray NASAL DAILY PRN PRN (Reason: Nasal Congestion) RF: 0 cholecalciferol (vitamin D3) 1,250 mcg (50,000 unit) capsule 1,250 mcg PO SA RF: 0 budesonide-formoterol [Symbicort] 160-4.5 mcg/actuation HFA aerosol inhaler 2 puff INHALATION BID RF: 0 metoprolol tartrate 50 mg tablet 50 mg PO BID Qty: 60 RF: 0 tiotropium bromide 2.5 mcg/actuation mist 2 puff INHALATION DAILY Qty: 4 RF: 11 doxazosin 2 mg tablet 2 mg PO DAILY Qty: 90 RF: 3 albuterol sulfate 90 mcg/actuation aerosol powdr breath activated 2 inh INHALATION Q4H PRN PRN (Reason: Sob &/Or Wheezing) Qty: 1 RF: 6 pravastatin 40 mg tablet 40 mg PO DINNER Qty: 90 RF: 3 pantoprazole [Protonix] 40 mg tablet,delayed release (DR/EC) 40 mg PO DAILY Qty: 30 RF: 3 nystatin 100,000 unit/mL suspension 5 ml PO Q6H Qty: 250 RF: 1 polyethylene glycol 3350 17 gram powder in packet 17 g PO DAILY PRN (Reason: Constipation) 30 Days Qty: 30 RF: 1 fluoxetine 20 mg capsule 60 mg PO DAILY Qty: 270 RF: 1 Changed furosemide 40 mg Tablet 60 mg PO DAILY 30 Days Qty: 1 RF: 0 Referrals / Follow Up: Lizzeth Velasquez MD [Primary Care Provider] - Pee Castillo MD [STAFF PHYSICIAN] - Within 2 Weeks OliveRegan krishnamurthy MD [STAFF PHYSICIAN] - See Referral Note (as directed-next visit or within 3 weeks) Disposition Disposition (needs filled in before D/C Order can be placed): Home, Self Care
--- NOTE | 2021-08-16 12:06 | PHA.DC.MR ---
Pharmacy Service has performed discharge medication reconciliation for this patient. The patient's discharge medication list was reviewed for discrepancies and discrepancies were resolved. Did not certified alcohol drug counselor, per Dr. Crandall patient has potassium chloride tablets at home. Home Medications fluticasone propionate 2 spray NASAL DAILY PRN PRN 04/11/16 tiotropium bromide 2.5 mcg/actuation mist for inhalation 2 puff INHALATION DAILY #4 gm 07/25/20 doxazosin 2 mg tablet 2 mg PO DAILY #90 tablet 12/27/20 albuterol sulfate 90 mcg/actuation breath activated powder inhaler 2 inh INHALATION Q4H PRN PRN #1 each 01/21/21 pravastatin 40 mg tablet 40 mg PO DINNER #90 tablet 05/02/21 budesonide-formoterol [Symbicort] 2 puff INHALATION BID 06/05/21 cholecalciferol (vitamin D3) 1,250 mcg PO SA 06/05/21 metoprolol tartrate 50 mg PO BID #60 tab 06/12/21 Disability Placard #1 ea 06/20/21 amiodarone 200 mg tablet 200 mg PO DAILY #60 tab 06/26/21 rivaroxaban 20 mg tablet 20 mg PO QDAY #30 tablet 06/26/21 prednisone 10 mg tablet 10 mg PO QDAY #180 tab 06/27/21 pantoprazole 40 mg tablet,delayed release 40 mg PO DAILY #30 tab 07/15/21 nystatin 100,000 unit/mL oral suspension 5 ml PO Q6H #250 ml 07/25/21 polyethylene glycol 3350 17 gram oral powder packet 17 g PO DAILY PRN 30 Days #30 packet 07/25/21 fluoxetine 20 mg capsule 60 mg PO DAILY #270 cap 07/30/21 furosemide 60 mg PO DAILY 30 Days #1 tab 08/16/21 potassium chloride 20 meq PO DAILY #60 cap 08/16/21
[2021-08-16] MEDS: 0.9% Saline Lock 10 ML Syringe IV (12:15)
--- NOTE | 2021-08-16 20:38 | PCM.DC.SUM ---
Providers Date of Admission: 08/13/21 Date of Discharge: 08/16/21 Primary Care Physician: Dr. Lizzeth Velasquez MD Consultations 08/14/21 10:29 Consult: Infectious Disease Routine Consulting Provider: Dimas Levin Reason for Consult: Pneumonia. Bilateral effusion. Probably malignant effusion EMERGENT Consult: No MD Notified: Yes Date Notified: 08/15/21 Time Notified: 06:44 Method of Notification: Text 08/14/21 10:30 Consult: Barrel Dedenting Machine Operator / Pulmonary Medicine Routine Consulting Provider: Pulmonary Medicine [facility] Reason for Consult: acute on chr hypoxic resp failure, malignant effusion?, need thoracocente? EMERGENT Consult: No Notified: Yes Date Notified: 08/13/21 Time Notified: 16:30 Method of Notification: Verbal Reason For Visit: ACUTE HYPOXIC RESPIRATORY FAILURE;PNEUMONIA Diagnosis Discharge Diagnosis (1) Hypoxia: Status: Acute Code(s): R09.02 - Hypoxemia (2) ALEX (obstructive sleep apnea): Status: Acute Code(s): G47.33 - Obstructive sleep apnea (adult) (pediatric) (3) Small cell lung cancer, right upper lobe: Status: Chronic Code(s): C34.11 - Malignant neoplasm of upper lobe, right bronchus or lung (4) Consolidation of right lower lobe of lung: Status: Chronic Code(s): J18.1 - Lobar pneumonia, unspecified organism Plan: Final diagnosis: #1 acute on chronic hypoxic respiratory failure-multifactorial, immunotherapy induced pneumonitis, acute on chronic congestive heart failure #2 obstructive sleep apnea #3 chronic obstructive pulmonary disease #4 immunotherapy induced pneumonitis #5 acute on chronic congestive heart failure #6 small cell lung cancer Patient was not thought to have infectious pneumonia Medications at Discharge Home Medications fluticasone propionate 2 spray NASAL DAILY PRN PRN 04/11/16 tiotropium bromide 2.5 mcg/actuation mist for inhalation 2 puff INHALATION DAILY #4 gm 07/25/20 doxazosin 2 mg tablet 2 mg PO DAILY #90 tablet 12/27/20 albuterol sulfate 90 mcg/actuation breath activated powder inhaler 2 inh INHALATION Q4H PRN PRN #1 each 01/21/21 pravastatin 40 mg tablet 40 mg PO DINNER #90 tablet 05/02/21 budesonide-formoterol [Symbicort] 2 puff INHALATION BID 06/05/21 cholecalciferol (vitamin D3) 1,250 mcg PO SA 06/05/21 metoprolol tartrate 50 mg PO BID #60 tab 06/12/21 Disability Placard #1 ea 06/20/21 amiodarone 200 mg tablet 200 mg PO DAILY #60 tab 06/26/21 rivaroxaban 20 mg tablet 20 mg PO QDAY #30 tablet 06/26/21 prednisone 10 mg tablet 10 mg PO QDAY #180 tab 06/27/21 pantoprazole 40 mg tablet,delayed release 40 mg PO DAILY #30 tab 07/15/21 nystatin 100,000 unit/mL oral suspension 5 ml PO Q6H #250 ml 07/25/21 polyethylene glycol 3350 17 gram oral powder packet 17 g PO DAILY PRN 30 Days #30 packet 07/25/21 fluoxetine 20 mg capsule 60 mg PO DAILY #270 cap 07/30/21 furosemide 60 mg PO DAILY 30 Days #1 tab 08/16/21 potassium chloride 20 meq PO DAILY #60 cap 08/16/21 Hospital Course Operations None Procedures None Summary of Care Provided Minutes Spent on Discharge: 32 Hospital Course: This 55-year-old white male was seen in the emergency room at [facility] with a chief complaint of shortness of breath and hypoxia, patient was normally on 6 L of oxygen by nasal cannula at home and in his oncologist's office the day he was evaluated in the ER, his oxygen saturation was noted to be in the 40s. Patient admitted to a cough with some yellow sputum. Work-up in the emergency room included a CT of the chest which showed no evidence of pulmonary embolism, there was chronic changes and a right lower lobe infiltrate, CBC was within normal limits, lactate was elevated 2.3. Beta natruretic peptide was slightly elevated at 174. Patient was started on Rocephin IV and Zithromax IV, he was admitted to ICU where he was seen in consultation by pulmonary medicine and infectious diseases, infectious diseases did not feel the patient had infectious pneumonia, pulmonary medicine felt that the patient had a pneumonitis from immunotherapy for his lung cancer and also felt that the patient had acute on chronic diastolic CHF. Patient was diuresed and eventually moved up to U. On 08/16/2021, patient was seen and examined: On examination he appeared in good health and spirits. Vital signs as documented. Skin warm and dry and without overt rashes. Neck without JVD, neck was supple, trachea midline, thyroid was normal. Lungs clear bilaterally, normal air movement was noted. Heart exam notable for regular rhythm, normal sounds and absence of murmurs, rubs or gallops. Abdomen unremarkable and without evidence of organomegaly, masses, or abdominal aortic enlargement. Bowel sounds are present, abdomen is not distended. Extremities nonedematous, no cyanosis was noted, no clubbing was noted. Neuro: Cranial nerves II through XII are grossly intact, no focal motor deficits were noted, sensation to light touch and pinprick intact, motor exam 5/5 throughout. Psych: Patient is alert and oriented x3, he does not appear anxious or depressed, he does not appear agitated. Patient appears to be stable for discharge on 08/16/2021, patient required 3 L of oxygen at rest and on ambulating for home O2 use, he was expected to use oxygen inside the home and outside his home as directed. Weight / BMI Weight Weight: 130.9 kg Body Mass Index (BMI) 35.9 ABG / Lab / Microbiology Data Result Diagrams: 08/16/21 05:00 08/16/21 05:00 Laboratory: Laboratory Results - last 24 hr 08/16/21 05:00: WBC 6.3, RBC 3.76 L, Hgb 11.1 L, Hct 37.0 L, MCV 98.4 H D, MCH 29.5, MCHC 30.0 L, RDW Std Deviation 68.3 H, RDW Coeff of Benjamin 18.6 H, Plt Count 213, MPV 9.7, Immature Gran % (Auto) 0.500, Neut % (Auto) 65.6, Lymph % (Auto) 25.4, [place] % (Auto) 7.7, Eos % (Auto) 0.6, Baso % (Auto) 0.2, Absolute Neuts (auto) 4.1, Absolute Lymphs (auto) 1.59, Nucleated RBC % 0, Differential Comment SCANNED, Anisocytosis RARE, Macrocytosis RARE 08/16/21 05:00: Sodium 137, Potassium 3.6, Chloride 101, Carbon Dioxide 30.0, Anion Gap 6, BUN 26 H, Creatinine 1.24, Estim Creat Clear Calc 81.67, Est GFR (MDRD) Af Amer 77, Est GFR (MDRD) Non-Af 64, BUN/Creatinine Ratio 21.0 H, Glucose 94, Calcium 9.4 Microbiology: Microbiology 08/13/21 12:50 Blood Culture (Wb) - Anticubital Right Blood Culture - Preliminary No growth in 48 hours. 08/13/21 09:25 Blood Culture (Wb) - Chest Blood Culture - Preliminary No growth in 48 hours. 08/14/21 17:50 Urine, Clean Catch Legionella Antigen - Final 08/14/21 17:50 Urine, Clean Catch Streptococcus pneumoniae Antigen (M - Final 08/13/21 16:00 Mucosa - Nasopharyngeal Respiratory Panel (PCR) - Final 08/13/21 09:55 Nasal Secretion SARS-CoV-2 Antigen (Rapid) - Final D/C Instructions Discharge Diet: No restrictions Weight Bearing Status: Full weight bearing Meaningful Use Info Meaningful Use Diagnoses (Choose all that apply): None applicable Discharge Plan Admission Admit Date/Time: 08/13/21 13:04 Primary Reason for Your Visit: respiratory failure Attending Provider: Morris Chowdhury Primary Care Provider: Lizzeth Velasquez Consulting Providers: Pee Castillo ; Carlitos Philip ; Amanda Rivero SOFTWARE QUALITY AUTOMATION ENGINEER ; Dimas Levin Instructions Patient Instructions: ED Chest Pain, Noncardiac Additional Instructions / Restrictions: Patient Problems: Altered Health Status related to Hospitalization Patient Goals: *Optimal Level of Health *Keep Appointments *Medication Compliance *Remain SafeContinue CPAP at home, use oxygen at 3 L at rest and while ambulating Discharge Orders/Prescriptions Prescriptions: New potassium chloride 10 mEq capsule, extended release 20 meq PO DAILY Qty: 60 RF: 0 Continued prednisone 10 mg tablet 10 mg PO QDAY Qty: 180 RF: 2 (DME) Disability Placard See Rx Instructions .Route .MEDSUPPLY Qty: 1 RF: 0 rivaroxaban 20 mg tablet 20 mg PO QDAY Qty: 30 RF: 12 amiodarone 200 mg tablet 200 mg PO DAILY Qty: 60 RF: 3 fluticasone propionate 1 SPRAY spray,suspension 2 spray NASAL DAILY PRN PRN (Reason: Nasal Congestion) RF: 0 cholecalciferol (vitamin D3) 1,250 mcg (50,000 unit) capsule 1,250 mcg PO SA RF: 0 budesonide-formoterol [Symbicort] 160-4.5 mcg/actuation HFA aerosol inhaler 2 puff INHALATION BID RF: 0 metoprolol tartrate 50 mg tablet 50 mg PO BID Qty: 60 RF: 0 tiotropium bromide 2.5 mcg/actuation mist 2 puff INHALATION DAILY Qty: 4 RF: 11 doxazosin 2 mg tablet 2 mg PO DAILY Qty: 90 RF: 3 albuterol sulfate 90 mcg/actuation aerosol powdr breath activated 2 inh INHALATION Q4H PRN PRN (Reason: Sob &/Or Wheezing) Qty: 1 RF: 6 pravastatin 40 mg tablet 40 mg PO DINNER Qty: 90 RF: 3 pantoprazole [Protonix] 40 mg tablet,delayed release (DR/EC) 40 mg PO DAILY Qty: 30 RF: 3 nystatin 100,000 unit/mL suspension 5 ml PO Q6H Qty: 250 RF: 1 polyethylene glycol 3350 17 gram powder in packet 17 g PO DAILY PRN (Reason: Constipation) 30 Days Qty: 30 RF: 1 fluoxetine 20 mg capsule 60 mg PO DAILY Qty: 270 RF: 1 Changed furosemide 40 mg Tablet 60 mg PO DAILY 30 Days Qty: 1 RF: 0 Referrals / Follow Up: Pee Castillo MD [STAFF PHYSICIAN] - Within 2 Weeks Regan Schaefer MD [STAFF PHYSICIAN] - See Referral Note (as directed-next visit or within 3 weeks) Lizzeth Velasquez MD [Primary Care Provider] - Disposition Disposition (needs filled in before D/C Order can be placed): Home, Self Care Charges/Coding Visit Charges Inpatient E&M: 25731 Disch Hosp
--- NOTE | 2021-08-19 14:58 | CASEMGMT ---
CORTNEY MORA Discharge Follow-up Phone Call: TONNY: Charanjit Strata: 3 Call Date: 08/19/21 Discharge Date: 08/16/21 Time of Call: 1450 Admitting Diagnosis: a/c chf This CORTNEY MORA contacted pt via phone in follow-up from pt's discharge. Pt states he has been doing pretty good. Pt reports to have his oxygen down to 2l/min per NC and his PO to be 96% and HR less than 100 although reports his HR to increased above 100 slightly with activity. Pt states his PO has decreased to the high 80's with activity and states when he has taken it off to shower it has decreased to the 70's. Pt states his concentrator tubing does not reach to the shower and his portable device does not have tubing long enought for his to use it in the shower. Pt states he is a quick showerer and tolerates this well. Pt states they are delivering a BSC today although pt reports he is tolerating the steps to the bathroom much better. Pt states he has not picked up his KCL prescription and reports to be eating bananas until he can come into [place] tomorrow for an appointment. Pt states he was able to get an appointment with Dr. Castillo on 08/29, and is awaiting a call back from Dr. Schaefer's office to schedule a follow-up. Encouraged pt to fruit or nut picker his KCL prescription as soon as able. Pt denies any questions or concerns and states he is feeling much better. Pt states his goal is to stay out of [facility] but then states I don't always follow through on my goals. Rekha Santos RN CM
== END 2021-08-16 12:42 | disposition home or self-care (01) | DRG 144 ==
LOC: ED 13:19 → PCU 16:59
PROVIDERS: Hospitalist; Admitting Provider Internal Medicine; Emergency Provider Emergency Medicine; PCP Internal Medicine; Visit Provider Internal Medicine
DX: J70.2 Acute drug-induced interstitial lung disorders (principal); I50.33 Acute on chronic diastolic (congestive) heart failure; J96.11 Chronic respiratory failure with hypoxia; C34.11 Malignant neoplasm of upper lobe, right bronchus or lung; J91.0 Malignant pleural effusion; Z99.81 Dependence on supplemental oxygen; I48.11 Longstanding persistent atrial fibrillation; J44.9 Chronic obstructive pulmonary disease, unspecified; F31.9 Bipolar disorder, unspecified; J45.40 Moderate persistent asthma, uncomplicated; I10 Essential (primary) hypertension; E78.5 Hyperlipidemia, unspecified; F41.9 Anxiety disorder, unspecified; G47.33 Obstructive sleep apnea (adult) (pediatric); G43.909 Migraine, unspecified, not intractable, without status migrainosus; F17.200 Nicotine dependence, unspecified, uncomplicated; Z79.01 Long term (current) use of anticoagulants; T45.1X5A Adverse effect of antineoplastic and immunosuppressive drugs, initial encounter; Z86.2 Personal history of diseases of the blood and blood-forming organs and certain disorders involving the immune mechanism; Z79.899 Other long term (current) drug therapy
CPT/HCPCS: 36415; 36591; 71275; 80048; 80053; 80202; 83605; 83735; 83880; 84100; 84484; 85025; 85610; 85730; 87040; 87426; 87449; 87633; 87635; 87641; 93005; 94002; 94003; 94640; 94762; 97802; 99284; 99406; J7040; J7050; Q9967; U0005; A4216; J0696; J1940; U0003

== ENCOUNTER → 2021-08-29 11:16 | Outpatient (CLI) | payer MEDICAID, SELFPAY ==
[2021-06-14 10:52] VITALS: BMI 33.7
[2021-08-29 12:49] LABS: Anion Gap 6 (5-15); BUN 26 mg/dL (7-18); BUN/Creat Ratio 19.1 RATIO (10-20); Calcium,Total 9.4 mg/dL (8.5-10.1); Chloride 98 mmol/L (98-107); Creatinine, Serum 1.36 mg/dL (0.70-1.30); EST Glomerular Filtration Rate 57 mL/min (>60); Est Glom Filt Rate - Afr Amer 70 mL/min (>60); Glucose 98 mg/dL (74-106); Potassium 4.5 mmol/L (3.5-5.1); Sodium Level 138 mmol/L (136-145)
== END ==
PROVIDERS: PCP Internal Medicine; Referring Provider Nurse Practitioner Family; Visit Provider Nurse Practitioner Family
DX: I50.33 Acute on chronic diastolic (congestive) heart failure (principal)
CPT/HCPCS: 36415; 80048

== ENCOUNTER → 2021-09-05 09:03 | Outpatient (CLI) | payer MEDICAID, SELFPAY ==
[2021-06-14 10:52] VITALS: BMI 33.7
[2021-07-09 09:16] VITALS: BMI 33.3
--- NOTE | 2021-09-05 09:05 | CT_ITS ---
EXAM: CT CHEST AND ABDOMEN WITH INTRAVENOUS CONTRAST CLINICAL INDICATION: Follow-up small cell lung cancer. TECHNIQUE: Helically acquired images were obtained of the chest and abdomen with intravenous contrast. This CT exam was performed using one or more of the following dose reduction techniques: automated exposure control, adjustment of the mA and/or kV according to patient size, and/or use of iterative reconstruction technique. This report was created using [employer] report generation technology. CONTRAST: IV 100mL [id number] COMPARISON: CTA chest 08/13/2021. CT abdomen with contrast 07/04/2021. FINDINGS: CHEST: LUNGS AND PLEURAL SPACES: Atelectases with air bronchograms around the right hilum are unchanged. Moderate right pleural fluid is unchanged. Interval improvement of the scattered groundglass opacities surrounding the interlobular septal thickening in the left lung. No mass. HEART: Unremarkable. Heart size is normal. No pericardial effusion. MEDIASTINUM: See below. THYROID: Unremarkable. No thyroid lesions. ABDOMEN: LIVER: Unremarkable. Homogeneous. No focal mass. GALLBLADDER AND BILE DUCTS: Unremarkable. No calcified gallstones. No gallbladder distention or wall edema. No intra- or extrahepatic biliary ductal dilation. PANCREAS: Unremarkable. No focal cystic or solid mass. SPLEEN: Unremarkable. Normal size without focal cystic or solid mass. ADRENALS: Unremarkable. No nodules. KIDNEYS AND URETERS: Unremarkable. Normal renal size and position. No hydronephrosis. STOMACH AND BOWEL: Unremarkable. No stomach or bowel distention. No focal inflammatory change. INTRAPERITONEAL SPACE: Unremarkable. No ascites or other fluid collection. No free air. CHEST and ABDOMEN: BONES/JOINTS: Unremarkable. No suspicious lytic or blastic abnormality. SOFT TISSUES: Unremarkable. No discrete abdominal wall hernia. VASCULATURE: Vascular calcifications along the abdominal aorta and iliac arteries. Aorta is non-dilated. No aortic dissection. No obvious central pulmonary embolism although this study was not performed with the pulmonary embolism protocol. LYMPH NODES: 5.1 x 2 cm necrotic lymphadenopathy in the subcarinal space. Smaller lymph nodes adjacent the left main pulmonary artery and adjacent the transverse thoracic aorta are unchanged. CT/CT Chest AND Abd W/ Contrast IMPRESSION: 1. No CTA evidence of pulmonary thromboemboli, thoracic aortic aneurysm or dissection. 2. 5.1 x 2 cm necrotic lymphadenopathy in the subcarinal space is more obvious but overall unchanged in size when compared to 08/13/2021. 3. Persistent atelectases with air bronchograms around the right hilum. 4. Interval improvement of the multiple small scattered groundglass opacities in the diffuse interlobular septal thickening of the left lung. 5. Diminished right lung volume and moderate loculated right pleural fluid are unchanged. 6. No CT evidence of mass or lymphadenopathy in the abdomen. Electronically Signed: Chidi Morales MD at 12:47 EDT , Service support ,
[2021-09-05] MEDS: 0.9% Saline Lock 10 ML Syringe IV ×2 (09:20→09:30)
[2021-09-05] MEDS: 0.9 % NaCl (Sterile) Posiflush 10 mL IV (09:20)
== END ==
PROVIDERS: PCP Internal Medicine; Referring Provider Internal Medicine Hematology & Oncology; Visit Provider Internal Medicine Hematology & Oncology
DX: C34.11 Malignant neoplasm of upper lobe, right bronchus or lung (principal)
CPT/HCPCS: 71260; 74160; Q9967

== ENCOUNTER → 2021-10-04 | Outpatient (CLI) | payer MEDICAID, SELFPAY ==
[2021-06-14 10:52] VITALS: BMI 33.7
[2021-10-04 14:45] LABS: Probe Check A
== END | disposition home or self-care (01) ==
LOC: LABSPEC 08:37
PROVIDERS: PCP Internal Medicine; Referring Provider Physician Assistant Surgical; Visit Provider Physician Assistant Surgical
DX: Z11.52 Encounter for screening for COVID-19 (principal)
CPT/HCPCS: 87635; U0005; U0003

== ENCOUNTER 2021-10-08 10:34 | Emergency (ER) | payer MEDICAID, SELFPAY ==
[2021-06-14 10:52] VITALS: BMI 33.7
[2021-10-08 10:35] VITALS: BP 116/89; PULSE 96; RESP 20; TEMP 36.1; O2SAT 91; BMI 36.2
--- NOTE | 2021-10-08 11:01 | EKG12_ITS ---
Test Reason : CP/SOB Blood Pressure : / mmHG Vent. Rate : 081 BPM Atrial Rate : 127 BPM P-R Int : 000 ms QRS Dur : 102 ms QT Int : 404 ms P-R-T Axes : 000 -18 103 degrees QTc Int : 469 ms Atrial fibrillation Abnormal ECG Confirmed by TOMAS BARKLEY, ADNREY ([id number]), state editor SARY OLIVO ([id number]) on 10/10/2021 8:41:28 AM Referred By: CRISTI Confirmed By:ANDREY MARIN MD
--- NOTE | 2021-10-08 11:02 | ED.VIS.DYS ---
HPI History of Present Illness Chief Complaint: Shortness of Breath Informant: patient Onset/Context/Timing Onset: Today and Hours Context: gradual Current Severity: Mild Maximum Severity: Mild Worsened by: Nothing Relieved by: Nothing Associated Symptoms Chest Pain: Positive for Intermittent Narrative Narrative: 56-year-old male had pneumonia in May also has a history of prior lung cancer with radiation chemotherapy and also history of A. fib which is on Xarelto. Since his pneumonia in May has been on 2 L home oxygen. Today just feels like he is more short of breath. States his pulse ox at home on O2 is 96% but he said it feels like it is a lot worse in. Also states since Thursday has had throbbing left-sided chest pain. He has no known cardiac disease. Denies any history of prior DVT or PE. He is currently on the blood thinner. He denies any hemoptysis. The pain is not pleuritic. He denies any new swelling to his legs or calf pain. PE Risk Factors: Positive for Cancer; Negative for OCP + Smoking + > 35, Prior DVT or PE, Recent immobilization, Recent surgery and Recent travel Prior similar symptoms: Yes Recent Illness/Hospitalization: Yes [facility] Medical History Abnormal PET scan of colon Acute on chronic diastolic CHF (congestive heart failure) Acute respiratory failure with hypoxia Adrenal nodule Anxiety and depression Asthma, moderate persistent Atrial fibrillation Atrial fibrillation with rapid ventricular response BiPAP (biphasic positive airway pressure) dependence Bipolar disorder Borderline type 2 diabetes mellitus Chemotherapy induced neutropenia Chronic respiratory failure CINV (chemotherapy-induced nausea and vomiting) Consolidation of right lower lobe of lung Dyspnea Encounter for education Essential (primary) hypertension Fatigue Hyperlipidemia Longstanding persistent atrial fibrillation Lung cancer Marijuana abuse Migraines Nausea Nicotine dependence Nocturia Obesity Oral candidiasis ALEX (obstructive sleep apnea) Pancytopenia due to chemotherapy Pleural effusion, right Radiation dermatitis Rectal abnormality Rectal pain Regional lymph node metastasis present Smoker 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 classification Home Medications tiotropium bromide 2.5 mcg/actuation mist for inhalation 2 puff INHALATION DAILY #4 gm 07/25/20 [Rx Last Taken 08/13/21] doxazosin 2 mg tablet 2 mg PO DAILY #90 tablet 12/27/20 [Rx Last Taken 08/13/21] albuterol sulfate 90 mcg/actuation breath activated powder inhaler 2 inh INHALATION Q4H PRN PRN #1 each 01/21/21 [Rx Last Taken 08/13/21] pravastatin 40 mg tablet 40 mg PO DINNER #90 tablet 05/02/21 [Rx Last Taken 08/12/21] cholecalciferol (vitamin D3) 1,250 mcg PO SA 06/05/21 [History Last Taken 08/10/21] Disability Placard #1 ea 06/20/21 [Rx Last Taken Unknown] rivaroxaban 20 mg tablet 20 mg PO QDAY #30 tablet 06/26/21 [Rx Last Taken 08/12/21] prednisone 10 mg tablet 10 mg PO QDAY #180 tab 06/27/21 [Rx Last Taken 08/13/21] pantoprazole 40 mg tablet,delayed release 40 mg PO DAILY #30 tab 07/15/21 [Rx Last Taken 08/13/21] nystatin 100,000 unit/mL oral suspension 5 ml PO Q6H #250 ml 07/25/21 [Rx Last Taken 08/13/21] fluoxetine 20 mg capsule 60 mg PO DAILY #270 cap 07/30/21 [Rx Last Taken 08/13/21] amiodarone 200 mg tablet 200 mg PO DAILY #90 tab 08/20/21 [Rx Last Taken Unknown] metoprolol tartrate 100 mg tablet 100 mg PO BID #180 tab 09/10/21 [Rx Last Taken Unknown] fluticasone propionate 50 mcg/actuation nasal spray,suspension 2 spray NASAL DAILY PRN PRN #16 g 09/18/21 [Rx Last Taken Unknown] polyethylene glycol 3350 17 gram oral powder packet 17 g PO DAILY PRN 30 Days #30 packet 09/18/21 [Rx Last Taken Unknown] budesonide-formoterol HFA 160 mcg-4.5 mcg/actuation aerosol inhaler 2 puff INHALATION BID #10.2 g 09/19/21 [Rx Last Taken Unknown] potassium chloride 20 mEq tablet,extended release 20 meq PO DAILY #90 tab 09/25/21 [Rx Last Taken Unknown] furosemide 40 mg tablet 60 mg PO DAILY 30 Days #135 tab 09/30/21 [Rx Last Taken Unknown] Allergy/AdvReac Type Severity Reaction Status Date / Time atezolizumab AdvReac Severe Pneumonia Verified 09/10/21 11:21 pioglitazone HCl [From [employer]] AdvReac Severe Other Verified 09/10/21 11:21 Family History Father CAD (coronary artery disease) Hx CABG Family history of hypertension Family history of hyperlipidemia Hypertension CVA (cerebral vascular accident) Mother , Age 55 Sudden cardiac Family history of hypertension Sister Family history of hypertension Family history of hyperlipidemia Diabetes Grandfather CVA (cerebral vascular accident) Grandmother CVA (cerebral vascular accident) Uncle Lung cancer Surgical History History of cardioversion (03/2016) History of stomach ulcers History of thoracentesis (01/2020) History of tonsillectomy Pilonidal cyst (~1986) PORT PLACEMENT Social History Smoking Status: Former smoker quit date: 09/01/20 alcohol intake: never details: occasional substance use type: marijuana caffeine: Yes Type: carbonated beverages and coffee what type of physical activity do you participate in: none romero/pentecostal: Sabianist seatbelt use: always do you feel safe at home: Yes ROS ROS ED ROS Narrative Shortness of breath. Review of Systems ROS Unobtainable: Denies due to encephalopathy Constitutional Constitutional ED: Denies chills or fever(s) Eyes Eyes: Denies change in vision ENT ENT ED: Denies ear pain or sore throat Cardiovascular Cardiovascular: Reports chest pain; Denies palpitations or racing heartbeat Respiratory/Chest Respiratory/Chest: Reports dyspnea; Denies cough or sputum Gastrointestinal Gastrointestinal: Denies abdominal pain, diarrhea, nausea or vomiting Genitourinary Genitourinary ED: Denies dysuria or hematuria Musculoskeletal Musculoskeletal: Denies myalgias Integumentary Denies rash Neurologic Neurologic: Denies headache(s) Psychiatric Psychiatric: Denies depression Endocrine Endocrinology: Denies polyuria Hematologic/Lymphatic Hematologic/Lymphatic: Denies easy bruising Allergic/Immunologic Allergic/Immunologic ED: Denies urticaria EXAM Physical Exam Narrative Exam Narrative: 36-year-old male on oxygen. His vital signs are stable. On oxygen my minimum room his sat is 96%. On the vital signs it was 91% on 2 L. No hypoxia. H EENT exam unremarkable. Neck nontender no JVD. No lymphadenopathy. Lungs clear to auscultation bilaterally. No rales, rhonchi or wheezing. Equal symmetrical. Heart regular rhythm rate about 90 no murmur. Chest wall nontender. Abdomen soft nontender. He does have a port on his left chest wall. Moving all 4 extremities. Calves are nontender without edema or cords. He is chronic discoloration of skin of his lower extremities. Neurologically is awake alert with no focal motor deficits. Const Vital Signs: 10/08/21 10:35 10/08/21 11:08 10/08/21 11:09 Temperature 97 F L 97 F L Temperature Source Temporal Temporal Pulse Rate 96 96 Respiratory Rate 20 H 20 H Respiratory Effort Short of Breath Respiratory Depth Normal Respiratory Pattern Normal Blood Pressure 116/89 H 116/89 H Blood Pressure Mean 98 98 Pulse Ox 91 91 Oxygen Delivery Method Nasal Cannula Nasal Cannula Room Air Oxygen Flow Rate (L/min) 2 2 2 10/08/21 12:00 10/08/21 13:00 Temperature 98.4 F 98.4 F Temperature Source Oral Oral Pulse Rate 77 84 Respiratory Rate 16 11 L Respiratory Effort Respiratory Depth Respiratory Pattern Blood Pressure 129/94 H 102/75 Blood Pressure Mean 105 84 Pulse Ox 94 95 Oxygen Delivery Method Nasal Cannula Nasal Cannula Oxygen Flow Rate (L/min) 2 2 Positive well nourished, well developed and obese; Negative for cachectic, contractures or unkempt General Appearance ED: well developed and NAD; Negative for unkempt, cachectic, contractures or pallor Nutritional Appearance: obese; Negative for cachectic HEENT Reports moist mucous membranes atraumatic; Negative for trauma or tenderness Eyes PERRL and EOMs intact bilaterally Neck no lymphadenopathy, supple, no meningeal signs and no JVD General: Negative for tenderness Resp normal respiratory effort and clear to auscultation bilaterally Auscultation: Negative for rales, rhonchi or wheezes Cardio regular rate, regular rhythm, S1 normal heart sound, S2 normal heart sound and no murmurs GI non-tender, non-distended and no masses Auscultation: normoactive bowel sounds Palpation: soft; Negative for tender, guarding or rebound tenderness present Back/Spine no CVA tenderness and normal to inspection General Back: Negative for CVA tenderness Extremity normal to inspection General Extremety ED: Negative for edema or tenderness General Extremity: Negative for edema Neuro oriented x3 Sensorium / Orientation: alert, oriented to person and oriented to place; Negative for oriented to time, orientation impaired, confused, lethargic or stuporous Psych mental status grossly normal Appearance: Negative for unkempt Mood & Affect: Negative for depressed or tearful Thought Process: normal thought process Skin no wounds General Skin Exam: Negative for jaundice or pallor Lesions: no lesions Rashes: no rashes MDM MDM MDM Narrative Medical decision making narrative: 56-year-old gentleman on none O2 status post pneumonia since May. No history of DVT or PE. Is complaining acute on chronic shortness of breath. Undergoing cardiac work-up and a D-dimer. Repeat exam patient is doing well at 1:35 PM. He is comfortable being discharged home. Follow-up with his utility arborist. Lab Data Attestation: I reviewed the patient's lab results. Lab results narrative: CBC shows a white count of 7.2. Hemoglobin 12.7. No bands. D-dimer elevated however after reviewing his old records am not can obtain an acute CT of the chest 1 he is on Xarelto the blood thinner and to he has had recent CTAs of his chest showing no PE.. Electrolytes unremarkable gap is 7 creatinine 1.32. Glucose 111 troponin of 14. Labs: Laboratory Results - last 24 hr 10/08/21 10/08/21 10/08/21 11:05 11:05 11:05 WBC 7.2 RBC 4.25 L Hgb 12.7 L Hct 39.1 L MCV 92.0 MCH 29.9 MCHC 32.5 RDW Std Deviation 47.6 H RDW Coeff of Benjamin 14.0 Plt Count 227 MPV 9.4 Immature Gran % (Auto) 0.700 Neut % (Auto) 70.1 H Lymph % (Auto) 19.2 [place] % (Auto) 9.1 Eos % (Auto) 0.6 Baso % (Auto) 0.3 Absolute Neuts (auto) 5.0 Absolute Lymphs (auto) 1.38 Nucleated RBC % 0 D-Dimer Quant (PE/DVT) 1.80 H* Sodium 138 Potassium 4.2 Chloride 102 Carbon Dioxide 29.0 Anion Gap 7 BUN 13 Creatinine 1.32 H Estim Creat Clear Calc 75.80 Est GFR (MDRD) Af Amer 72 Est GFR (MDRD) Non-Af 59 L BUN/Creatinine Ratio 9.8 L Glucose 111 H Calcium 10.1 Troponin I High Sens 14 Radiography Chest X-Ray - ED: 1 View, Read by ED Physician, Heart, Mediastinum, Bony Structures and No Acute Disease Diagnostic Testing: Clinical Impression(s) from Imaging Studies Chest X-Ray 10/08/21 11:11 IMPRESSION: Stable pleural-parenchymal changes at the right lung base with the volume loss in the right hemithorax. Increased markings in the right mid lung. Follow-up is recommended. Electronically Signed: Melquiades Stallings MD at 11:29 EST , Service support , Portable chest x-ray shows atelectasis and/or effusion in the right lower lung field. Chronic parenchymal changes in the left. Interpreted both by myself and the radiologist. Patient has a lot of chronic changes. Rhythm Strip Rhythm Strip: A-fib Rate: 81 Ectopy: None EKG Initial EKG: Interpretation: No Acute Injury Pattern and Atrial Fibrillation Comments: EKG shows atrial fibrillation rate of 81 no acute signs of [place] or ischemia and unchanged from prior EKG from July that also showed A. fib at a rate of 76. Prior EKG tracings: available for review Prior: Unchanged Discharge Plan Triage Chief Complaint: Shortness of Breath ED Provider: Rodrick Johnson Dx/Rx/DC Orders Clinical Impression: Chronic a-fib, Acute dyspnea, Pleural effusion on right Instructions: ED AFIB, ED Dyspnea Prescriptions: No Action metoprolol tartrate 100 mg tablet 100 mg PO BID Qty: 180 RF: 3 prednisone 10 mg tablet 10 mg PO QDAY Qty: 180 RF: 2 (DME) Disability Placard See Rx Instructions .Route .MEDSUPPLY Qty: 1 RF: 0 rivaroxaban 20 mg tablet 20 mg PO QDAY Qty: 30 RF: 12 cholecalciferol (vitamin D3) 1,250 mcg (50,000 unit) capsule 1,250 mcg PO SA RF: 0 tiotropium bromide 2.5 mcg/actuation mist 2 puff INHALATION DAILY Qty: 4 RF: 11 doxazosin 2 mg tablet 2 mg PO DAILY Qty: 90 RF: 3 albuterol sulfate 90 mcg/actuation aerosol powdr breath activated 2 inh INHALATION Q4H PRN PRN (Reason: Sob &/Or Wheezing) Qty: 1 RF: 6 pravastatin 40 mg tablet 40 mg PO DINNER Qty: 90 RF: 3 pantoprazole [Protonix] 40 mg tablet,delayed release (DR/EC) 40 mg PO DAILY Qty: 30 RF: 3 nystatin 100,000 unit/mL suspension 5 ml PO Q6H Qty: 250 RF: 1 fluoxetine 20 mg capsule 60 mg PO DAILY Qty: 270 RF: 1 amiodarone 200 mg tablet 200 mg PO DAILY Qty: 90 RF: 3 polyethylene glycol 3350 17 gram powder in packet 17 g PO DAILY PRN (Reason: Constipation) 30 Days Qty: 30 RF: 1 fluticasone propionate 50 mcg/actuation spray,suspension 2 spray NASAL DAILY PRN PRN (Reason: Nasal Congestion) Qty: 16 RF: 3 budesonide-formoterol [Symbicort] 160-4.5 mcg/actuation HFA aerosol inhaler 2 puff INHALATION BID Qty: 10.2 RF: 5 potassium chloride 20 mEq tablet extended release 20 meq PO DAILY Qty: 90 RF: 1 furosemide 40 mg tablet 60 mg PO DAILY 30 Days Qty: 135 RF: 3 Primary Care Provider: Lizzeth Velasquez Referrals: Lizzeth Velasquez MD [Primary Care Provider] - 3-5 Days if not improving Activity Restrictions/Additional Instructions: Continue your current medications. Make sure you are taking your blood thinner Xarelto. Continue your home oxygen. Follow-up with your primary care physician or your utility arborist Dr. Pee Castillo to ensure you are improving. Disposition Disposition: Home, Self Care
[2021-10-08 11:08] VITALS: O2SAT 99
[2021-10-08 11:09] VITALS: BP 116/89; PULSE 96; RESP 20; TEMP 36.1; O2SAT 91
--- NOTE | 2021-10-08 11:11 | RAD_ITS ---
STUDY: X-RAY CHEST REASON FOR EXAM: Male, 56 years old. Chest pain TECHNIQUE: Single AP portable view of the chest. COMPARISON: Comparison is made with prior study dated 06/10/2021. FINDINGS: EKG electrodes are seen. A left-sided portacatheter is seen with the tip at the junction of the superior vena cava and right atrium. Stable pleural parenchymal changes at the right lung base. Mild increased markings in the right mid lung. Follow-up is recommended. Loss of volume in the right hemithorax. Mild residual increased markings at the left lung base suggestive of scarring. Normal size heart. Right perihilar scarring. Normal visualized pulmonary arteries. There is atherosclerotic calcification of the aortic arch with tortuosity. There are diffuse degenerative changes of the visualized thoracic spine. Normal visualized ribs, clavicles, and shoulders. There is no demonstrated abnormality of the visualized soft tissue structures of the upper abdomen. RAD/Chest 1 View (Portable) IMPRESSION: Stable pleural-parenchymal changes at the right lung base with the volume loss in the right hemithorax. Increased markings in the right mid lung. Follow-up is recommended. Electronically Signed: Melquiades Stallings MD at 11:29 EST , Service support ,
[2021-10-08 11:13] LABS: Absolute Lymphocyte Count 1.38 X10^3/uL (0.83-4.51); Basophil# 0.02 X10^3/uL; Basophil% 0.3 % (0-1); Eosinophil# 0.04 X10^3/uL; Eosinophils% 0.6 % (0-5); Hematocrit 39.1 % (40-54); Hemoglobin 12.7 g/dL (13.0-16.5); Lymphocyte # 1.38 X10^3/ul (0.83-4.51); Lymphocyte % 19.2 % (19-41); Mean Corp Hgb Conc 32.5 g/dL (32-36); Mean Corpuscular Hgb 29.9 pg (27.0-32.0); Mean Platelet Vol. 9.4 fl (6.2-12.0); Monocyte# 0.65 X10^3/uL; Monocyte% 9.1 % (0-10); NRBC Flagged by Analyzer 0 % (0-5); Neutrophil # 5.04 X10^3/uL (2.7-7.7); Neutrophil % 70.1 % (47-70); Platelet Count 227 K/mm3 (150-450); RBC Distribution Width SD 47.6 fl (35.1-43.9); Red Blood Count 4.25 M/mm3 (4.6-6.2); White Blood Count 7.2 K/mm3 (4.4-11.0)
[2021-10-08 11:39] LABS: Anion Gap 7 (5-15); BUN 13 mg/dL (7-18); BUN/Creat Ratio 9.8 RATIO (10-20); Calcium,Total 10.1 mg/dL (8.5-10.1); Chloride 102 mmol/L (98-107); Creatinine, Serum 1.32 mg/dL (0.70-1.30); EST Glomerular Filtration Rate 59 mL/min (>60); Est Glom Filt Rate - Afr Amer 72 mL/min (>60); Glucose 111 mg/dL (74-106); Potassium 4.2 mmol/L (3.5-5.1); Sodium Level 138 mmol/L (136-145); Troponin-I HS 14 pg/mL (3.0-78.0)
[2021-10-08 12:00] VITALS: BP 129/94; PULSE 77; RESP 16; TEMP 36.9; O2SAT 94
[2021-10-08 13:00] VITALS: BP 102/75; PULSE 84; RESP 11; TEMP 36.9; O2SAT 95
== END 2021-10-08 13:54 | disposition home or self-care (01) ==
PROVIDERS: Emergency Provider Emergency Medicine; PCP Internal Medicine
DX: I48.20 Chronic atrial fibrillation, unspecified (principal); J90 Pleural effusion, not elsewhere classified; E11.9 Type 2 diabetes mellitus without complications; E66.9 Obesity, unspecified; Z68.36 Body mass index [BMI] 36.0-36.9, adult; E78.5 Hyperlipidemia, unspecified; F31.9 Bipolar disorder, unspecified; F41.9 Anxiety disorder, unspecified; I11.0 Hypertensive heart disease with heart failure; I50.33 Acute on chronic diastolic (congestive) heart failure; J44.9 Chronic obstructive pulmonary disease, unspecified; G47.33 Obstructive sleep apnea (adult) (pediatric); J45.40 Moderate persistent asthma, uncomplicated; G43.909 Migraine, unspecified, not intractable, without status migrainosus; Z92.3 Personal history of irradiation; Z87.01 Personal history of pneumonia (recurrent); Z85.118 Personal history of other malignant neoplasm of bronchus and lung; Z79.84 Long term (current) use of oral hypoglycemic drugs; Z79.01 Long term (current) use of anticoagulants; Z79.899 Other long term (current) drug therapy; Z87.891 Personal history of nicotine dependence
CPT/HCPCS: 71045; 80048; 84484; 85025; 85379; 87426; 93005; 99285; A4216

== ENCOUNTER → 2021-11-06 10:27 | Outpatient (CLI) | payer MEDICAID, SELFPAY ==
[2021-06-14 10:52] VITALS: BMI 33.7
--- NOTE | 2021-11-06 10:33 | MRI_ITS ---
STUDY: MRI BRAIN WITH AND WITHOUT CONTRAST REASON FOR EXAM: Male, 56 years old. OBSERVATION FOR METS,SM CELL LUNG TECHNIQUE: Standardized multiplanar fat and water weighted pulse sequences were obtained. IV DOTAREM 25ML was administered for the contrast portion of the examination. COMPARISON: 04/15/2021 FINDINGS: Normal size of the ventricles and extra-axial spaces for the patient''s age. There are a limited number of small white matter hyperintensities, distributed throughout the deep white matter tracts of the cerebral hemispheres, consistent with mild chronic white matter ischemic changes. Normal bilateral basal ganglia. Normal thalami. There is no extra-axial fluid accumulation. There is no enhancing intra-axial or extra-axial abnormality. Normal sella turcica, pituitary gland, infundibular stalk, optic chiasm and hypothalamus. Normal tectal plate and pineal gland. Normal midbrain, yuliana and medulla. Normal cerebellum. Normal basal cisterns. Normal bilateral temporal bones. Normal bilateral internal auditory canals. MRI/Brain W/WO Contrast IMPRESSION: No evidence of intracranial metastatic disease. Electronically Signed: Wesley Bansal MD at 15:47 EST Tel , Service support ,
== END ==
PROVIDERS: PCP Internal Medicine; Referring Provider Nurse Practitioner Family; Visit Provider Nurse Practitioner Family
DX: C34.90 Malignant neoplasm of unspecified part of unspecified bronchus or lung (principal)
CPT/HCPCS: 70553; A9575

== ENCOUNTER → 2021-11-28 08:09 | Outpatient (CLI) | payer MEDICAID, SELFPAY ==
[2021-06-14 10:52] VITALS: BMI 33.7
--- NOTE | 2021-11-28 08:11 | NM_ITS ---
CLINICAL: 56-year-old male with reported history of primary lung carcinoma. WHOLE BODY 99m Tc MDP RADIONUCLIDE BONE SCINTIGRAPHY COMPARISON: Whole body bone scintigraphy report 03/02/2020 (images not available) FINDINGS: Following the intravenous administration of 25.6 mCi of 99m Tc MDP, whole body bone images reveal: 1. Increased radiopharmaceutical concentration is defined in the left posterior, posterior lateral seventh-eighth ribs. 2. Enhanced uptake is visualized in the acromioclavicular compartments of both shoulders, sternoclavicular compartment of the left shoulder, the bilateral hip articulations involving the posterior inferior acetabulum, 10th thoracic vertebra posteriorly on the left, caudal aspect of the left sacroiliac joint. 3. Facilitated uptake is observed in the medial cortical compartment of the distal left femoral diaphysis. 4. The remaining skeletal structures are scintigraphically unremarkable with normal-appearing renal images and urinary bladder activity identified. NM/Bone Scan Whole Body IMPRESSION: 1. The increase in radiopharmaceutical concentration demonstrated in the left posterior ribs is most consistent with trauma-fracture. Plain film radiography correlation may be of benefit. 2. Enhanced tracer uptake observed in the distal left femoral diaphysis may represent an exostosis. X-ray correlation may be of assistance in this location. 3. Degenerative arthritis appears expressed in the bilateral shoulders, right and left hips, lower thoracic spine and left sacroiliac joint. 4. Overall compared to the previous whole body bone scintigraphy report dated 03/02/2020, there is no significant interval change. There is no definitive typical scintigraphic evidence of diffuse axial skeletal metastatic disease on the current examination. Electronically Signed: Pb Zamarripa DO at 7:21 EST Tel , Service support ,
== END ==
PROVIDERS: PCP Internal Medicine; Referring Provider Internal Medicine Hematology & Oncology; Visit Provider Internal Medicine Hematology & Oncology
DX: C34.11 Malignant neoplasm of upper lobe, right bronchus or lung (principal)
CPT/HCPCS: 78306; A9503

== ENCOUNTER 2021-12-03 08:33 | Outpatient (CLI) | payer MEDICAID, SELFPAY ==
[2021-06-14 10:52] VITALS: BMI 33.7
--- NOTE | 2021-12-03 08:35 | CT_ITS ---
STUDY: CT CHEST T ABDOMEN WITH CONTRAST REASON FOR EXAM: Male, 56 years old. RESTAGING SCLC RADIATION DOSAGE (If Supplied By Facility): CTDIvol = ( 25.95 ) mGy, DLP = ( 2012.33 ) mGycm TECHNIQUE: Transaxial imaging was performed following intravenous administration of IV 100mL Isovue-300. Individualized dose optimization techniques were used for this CT. COMPARISON: Comparison is made with prior examination dated 09/05/2021. FINDINGS: CHEST A left-sided portacatheter is seen with the tip in the superior vena cava. Heterogeneity of both lobes of the thyroid gland. Persistent air bronchograms are seen in the right perihilar and suprahilar region in keeping with history of prior radiation. This is worse in the superior segment of the right lower lobe. There has been improvement as compared to prior study. Findings are in keeping with postradiation fibrosis and bronchiectasis. Stable small right pleural effusion. There is no demonstrated pleural abnormality. Normal heart and pericardium. Stable enlargement of the subcarinal lymph nodes. Normal hilar regions. Normal unenhanced pulmonary arteries. Normal aorta arch and descending thoracic aorta. There are multi-level degenerative changes of the thoracic spine. ABDOMEN There now is evidence of multiple small hypodense nodules scattered throughout both lobes of the liver suggestive of a metastatic disease. Normal gallbladder and extrahepatic biliary system. Normal spleen. Normal pancreas. Normal bilateral adrenal glands. Normal right kidney. Normal left kidney. Normal visualized stomach. Normal small intestine. Normal colon. The appendix is visualized and appears normal. There is diffuse atherosclerotic calcification of the abdominal aorta, without a demonstrated aneurysm. Normal inferior vena cava. Normal retroperitoneum. Normal abdominal wall. There are diffuse degenerative changes of the visualized lumbar spine. CT/CT Chest AND Abd W/ Contrast IMPRESSION: Multiple hepatic nodules suggestive of a metastatic deposits within the liver. Since prior study, there has been improvement of the airspace disease and bronchiectasis in the right hemithorax with persistent right pleural effusion and subcutaneous carinal lymphadenopathy. Electronically Signed: Melquiades Stallings MD at 9:46 EST , Service support ,
[2021-12-03 08:50] LABS: EGFR FINGERSTICK > 60.0000 mL/min (>60)
[2021-12-03] MEDS: 0.9% Saline Lock 10 ML Syringe IV ×2 (09:00→09:01)
--- NOTE | 2021-12-03 09:10 | NURSING ---
talked with infusion nurse Brenda and she said to flush with saline and heparin and to deaccess, pt will follow up next week with infusion at his appointment.
== END 2021-12-03 23:59 | disposition short-term general hospital (02) ==
LOC: CT 08:35
PROVIDERS: PCP Internal Medicine; Referring Provider Internal Medicine Hematology & Oncology; Visit Provider Internal Medicine Hematology & Oncology
DX: C34.11 Malignant neoplasm of upper lobe, right bronchus or lung (principal)
CPT/HCPCS: 71260; 74160; Q9967; A4216

== ENCOUNTER 2021-12-12 11:17 | Emergency (ER) | payer MEDICAID, SELFPAY ==
[2021-06-14 10:52] VITALS: BMI 33.7
[2021-12-12 11:18] VITALS: BP 113/77; PULSE 78; RESP 16; TEMP 36.1; O2SAT 93; BMI 33.0
--- NOTE | 2021-12-12 11:41 | EDS_ITS ---
HPI History of Present Illness Chief Complaint: Back Informant: patient Narrative Narrative: Patient states last night he lost his balance and fell down to his buttocks and against a wall versus his back, states he felt a crack in his low back and has been having pain ever since. Denies any bowel or bladder dysfunction or new numbness/tingling, weakness, or pain radiating into his legs. He denies any other injury. He has been ambulatory but feels weak. He has a history of lung cancer with metastases, he has not done any chemotherapy recently but it is set to restart it on Thursday this coming week. He states he has felt weak like this before when he has been dehydrated, anemic. He has required blood transfusions in the past but he was undergoing active chemotherapy when that was needed. He states he was hoping to go to the infusion center and have all this checked out but he was told to come here because of his back. He denies any fevers or chills or any new illness recently, other than his low back all of his symptoms are chronic. [facility] Medical History Abnormal PET scan of colon Acute on chronic diastolic CHF (congestive heart failure) Acute respiratory failure with hypoxia Adrenal nodule Anxiety and depression Asthma, moderate persistent Atrial fibrillation Atrial fibrillation with rapid ventricular response BiPAP (biphasic positive airway pressure) dependence Bipolar disorder Borderline type 2 diabetes mellitus Chemotherapy induced neutropenia Chronic respiratory failure CINV (chemotherapy-induced nausea and vomiting) Consolidation of right lower lobe of lung Dyspnea Encounter for education Encounter for education Essential (primary) hypertension Fatigue Hallucination Hyperlipidemia Liver metastasis Longstanding persistent atrial fibrillation Lung cancer Marijuana abuse Migraines Nausea Nicotine dependence Nocturia Obesity Oral candidiasis ALEX (obstructive sleep apnea) Pancytopenia due to chemotherapy Pleural effusion, right Radiation dermatitis Rectal abnormality Rectal pain Regional lymph node metastasis present Smoker 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 classification Home Medications tiotropium bromide 2.5 mcg/actuation mist for inhalation 2 puff INHALATION DAILY #4 gm 07/25/20 [Rx Last Taken 08/13/21] doxazosin 2 mg tablet 2 mg PO DAILY #90 tablet 12/27/20 [Rx Last Taken 08/13/21] albuterol sulfate 90 mcg/actuation breath activated powder inhaler 2 inh INHALATION Q4H PRN PRN #1 each 01/21/21 [Rx Last Taken 08/13/21] pravastatin 40 mg tablet 40 mg PO DINNER #90 tablet 05/02/21 [Rx Last Taken 08/12/21] cholecalciferol (vitamin D3) 1,250 mcg PO SA 06/05/21 [History Last Taken 08/10/21] Disability Placard #1 ea 06/20/21 [Rx Last Taken Unknown] rivaroxaban 20 mg tablet 20 mg PO QDAY #30 tablet 06/26/21 [Rx Last Taken 08/12/21] pantoprazole 40 mg tablet,delayed release 40 mg PO DAILY #30 tab 07/15/21 [Rx Last Taken 08/13/21] nystatin 100,000 unit/mL oral suspension 5 ml PO Q6H #250 ml 07/25/21 [Rx Last Taken 08/13/21] fluoxetine 20 mg capsule 60 mg PO DAILY #270 cap 07/30/21 [Rx Last Taken 08/13/21] amiodarone 200 mg tablet 200 mg PO DAILY #90 tab 08/20/21 [Rx Last Taken Unknown] metoprolol tartrate 100 mg tablet 100 mg PO BID #180 tab 09/10/21 [Rx Last Taken Unknown] fluticasone propionate 50 mcg/actuation nasal spray,suspension 2 spray NASAL DAILY PRN PRN #16 g 09/18/21 [Rx Last Taken Unknown] polyethylene glycol 3350 17 gram oral powder packet 17 g PO DAILY PRN 30 Days #30 packet 09/18/21 [Rx Last Taken Unknown] budesonide-formoterol HFA 160 mcg-4.5 mcg/actuation aerosol inhaler 2 puff INHALATION BID #10.2 g 09/19/21 [Rx Last Taken Unknown] potassium chloride 20 mEq tablet,extended release 20 meq PO DAILY #90 tab 09/25/21 [Rx Last Taken Unknown] furosemide 40 mg tablet 60 mg PO DAILY 30 Days #135 tab 09/30/21 [Rx Last Taken Unknown] lorazepam 0.5 mg tablet 0.5 mg PO ONCE PRN #1 tab 11/05/21 [Rx Last Taken Unknown] acetaminophen 500 mg tablet 500 mg PO BID PRN tab 11/14/21 [History Last Taken Unknown] loratadine 10 mg tablet 10 mg PO DAILY PRN #30 tab 12/05/21 [Rx Last Taken Unknown] hydrocodone-acetaminophen 1 tab PO Q4H PRN PRN 2 Days #10 tablet 12/12/21 [Rx Last Taken Unknown] Allergy/AdvReac Type Severity Reaction Status Date / Time atezolizumab AdvReac Severe Pneumonia Verified 12/12/21 11:20 pioglitazone HCl [From Actos] AdvReac Severe Other Verified 12/12/21 11:20 Family History Father CAD (coronary artery disease) Hx CABG Family history of hypertension Family history of hyperlipidemia Hypertension CVA (cerebral vascular accident) Mother , Age 55 Sudden cardiac Family history of hypertension Sister Family history of hypertension Family history of hyperlipidemia Diabetes Grandfather CVA (cerebral vascular accident) Grandmother CVA (cerebral vascular accident) Uncle Lung cancer Surgical History History of cardioversion (03/2016) History of stomach ulcers History of thoracentesis (01/2020) History of tonsillectomy Pilonidal cyst (~1986) PORT PLACEMENT Social History Smoking Status: Former smoker quit date: 09/01/20 alcohol intake: never details: occasional substance use type: marijuana caffeine: Yes Type: carbonated beverages and coffee what type of physical activity do you participate in: none romero/holiness: Catholic seatbelt use: always do you feel safe at home: Yes ROS ROS ED Constitutional Constitutional ED: Reports fatigue, poor appetite and weakness; Denies chills or fever(s) Eyes Eyes: Denies change in vision or diplopia ENT ENT ED: Denies ear pain, rhinorrhea or sore throat Cardiovascular Cardiovascular: Reports leg edema; Denies chest pain or palpitations Respiratory/Chest Respiratory/Chest: Denies cough or dyspnea Gastrointestinal Gastrointestinal: Denies abdominal pain, diarrhea, nausea or vomiting Genitourinary Genitourinary ED: Denies dysuria or hematuria Musculoskeletal Musculoskeletal: Reports as per HPI, back pain and other Details: Chronic pain in legs and back ; Denies neck pain Integumentary Denies abscess or rash Neurologic Neurologic: Denies headache(s), paresthesias or weakness Psychiatric Psychiatric: Denies anxiety or suicidal thoughts EXAM Physical Exam Const Vital Signs: 12/12/21 11:18 Temperature 97 F L Temperature Source Temporal Pulse Rate 78 Respiratory Rate 16 Blood Pressure 113/77 Blood Pressure Mean 89 Pulse Ox 93 Oxygen Delivery Method Room Air Positive well nourished, well developed and obese General Appearance ED: well developed and NAD Nutritional Appearance: obese HEENT Reports moist mucous membranes HEENT Narrative: No objective posterior scalp tenderness, patient states my scalp always hurts normocephalic and atraumatic Eyes PERRL and EOMs intact bilaterally Neck full ROM and supple Resp normal respiratory effort and clear to auscultation bilaterally Cardio regular rate, regular rhythm and no murmurs GI non-tender and non-distended Auscultation: normoactive bowel sounds Palpation: soft Back/Spine no CVA tenderness and normal to inspection Back/Spine Narrative: Diffuse mild midline lumbosacral tenderness without step- off or obvious signs of trauma General Back: other FROM Lumbar Spine / Lower Back: normal to inspection, lumbar ROM normal and lumbar spinal tenderness Extremity normal to inspection General Extremety ED: Negative for edema, pulses abnormal or tenderness General Extremity: Negative for edema or pulses abnormal Neuro oriented x3, CN's II-XII intact bilaterally and no sensory deficits noted Sensorium / Orientation: awake and alert Motor Exam: strength 5/5 throughout Skin no rashes or lesions noted and no wounds MDM MDM MDM Narrative Medical decision making narrative: Patient requested blood work and some IV fluids in addition to having the x-rays of his back that he was sent here for which I thought was reasonable. All of his labs look excellent with a hemoglobin of 11.3. He was given half liter of fluid while we waited for these. He feels dehydrated, but is not markedly so according to his renal labs. X- rays show suspicion of an L1 compression fracture that is mild, which is consistent with his mechanism. Palpating the rest of his spine, there were no other areas of tenderness. He requested something for pain, he was given a [place] and a prescription for a short amount and referred to spine for reevaluation. He was comfortable with that plan. Prior to discharge, was asking the patient about his headache, he states he always has a headache and this is no different than his usual, I offered a CT scan of his head if he feels he could have injured it, he refuses. Lab Data Attestation: I reviewed the patient's lab results. Labs: Laboratory Results - last 24 hr 12/12/21 12/12/21 11:54 11:54 WBC 7.0 RBC 3.99 L Hgb 11.3 L Hct 35.1 L MCV 88.0 MCH 28.3 MCHC 32.2 RDW Std Deviation 46.1 H RDW Coeff of Benjamin 14.3 Plt Count 282 MPV 9.1 Immature Gran % (Auto) 0.700 Neut % (Auto) 74.1 H Lymph % (Auto) 16.8 L [place] % (Auto) 7.4 Eos % (Auto) 0.7 Baso % (Auto) 0.3 Absolute Neuts (auto) 5.2 Absolute Lymphs (auto) 1.18 Nucleated RBC % 0 Sodium 138 Potassium 3.7 Chloride 105 Carbon Dioxide 28.0 Anion Gap 5 BUN 13 Creatinine 1.22 Estim Creat Clear Calc 82.02 Est GFR (MDRD) Af Amer 79 Est GFR (MDRD) Non-Af 65 BUN/Creatinine Ratio 10.7 Glucose 110 H Calcium 9.9 Radiography Diagnostic Testing: Clinical Impression(s) from Imaging Studies Lumbar Spine X-Ray 12/12/21 12:00 IMPRESSION: Degenerative changes of the spine, as detailed above. Mild loss of height of the L1 vertebrae. Electronically Signed: Melquiades Stallings MD at 12:30 EST , Service support , Discharge Plan Triage Chief Complaint: Back ED Provider: Román Richards Dx/Rx/DC Orders Clinical Impression: Closed compression fracture of L1 vertebra, Small cell lung cancer, right upper lobe, Fatigue, Mild dehydration Instructions: ED Fracture, Vertebral Compression Prescriptions: New hydrocodone-acetaminophen [hydrocodone-acetaminophen] 1 TABLET tablet 1 tab PO Q4H PRN PRN (Reason: Pain) 2 Days Qty: 10 RF: 0 No Action metoprolol tartrate 100 mg tablet 100 mg PO BID Qty: 180 RF: 3 (DME) Disability Placard See Rx Instructions .Route .MEDSUPPLY Qty: 1 RF: 0 rivaroxaban 20 mg tablet 20 mg PO QDAY Qty: 30 RF: 12 acetaminophen [Tylenol Extra Strength] 500 mg tablet 500 mg PO BID PRNRF: 0 loratadine [Claritin] 10 mg tablet 10 mg PO DAILY PRN (Reason: allergy symptoms) Qty: 30 RF: 1 cholecalciferol (vitamin D3) 1,250 mcg (50,000 unit) capsule 1,250 mcg PO SA RF: 0 tiotropium bromide 2.5 mcg/actuation mist 2 puff INHALATION DAILY Qty: 4 RF: 11 doxazosin 2 mg tablet 2 mg PO DAILY Qty: 90 RF: 3 albuterol sulfate 90 mcg/actuation aerosol powdr breath activated 2 inh INHALATION Q4H PRN PRN (Reason: Sob &/Or Wheezing) Qty: 1 RF: 6 pravastatin 40 mg tablet 40 mg PO DINNER Qty: 90 RF: 3 pantoprazole [Protonix] 40 mg tablet,delayed release (DR/EC) 40 mg PO DAILY Qty: 30 RF: 3 nystatin 100,000 unit/mL suspension 5 ml PO Q6H Qty: 250 RF: 1 fluoxetine 20 mg capsule 60 mg PO DAILY Qty: 270 RF: 1 amiodarone 200 mg tablet 200 mg PO DAILY Qty: 90 RF: 3 polyethylene glycol 3350 17 gram powder in packet 17 g PO DAILY PRN (Reason: Constipation) 30 Days Qty: 30 RF: 1 fluticasone propionate 50 mcg/actuation spray,suspension 2 spray NASAL DAILY PRN PRN (Reason: Nasal Congestion) Qty: 16 RF: 3 budesonide-formoterol [Symbicort] 160-4.5 mcg/actuation HFA aerosol inhaler 2 puff INHALATION BID Qty: 10.2 RF: 5 potassium chloride 20 mEq tablet extended release 20 meq PO DAILY Qty: 90 RF: 1 furosemide 40 mg tablet 60 mg PO DAILY 30 Days Qty: 135 RF: 3 lorazepam 0.5 mg tablet 0.5 mg PO ONCE PRN (Reason: anxiety) Qty: 1 RF: 0 Primary Care Provider: Lizzeth Velasquez Referrals: Lizzeth Velasquez MD [Primary Care Provider] - Michael Aragon DO [STAFF PHYSICIAN] - As soon as possible Disposition Disposition: Home, Self Care
--- NOTE | 2021-12-12 12:00 | RAD_ITS ---
STUDY: X-RAY - LUMBAR SPINE REASON FOR EXAM: Male, 56 years old. Injury/pain TECHNIQUE: 3 view(s) of the lumbar spine were obtained. COMPARISON: None FINDINGS: Normal lumbar lordosis. There is no substantial scoliosis. There is a normal alignment of the vertebrae. There is multilevel endplate spondylosis of the lumbar vertebrae. There is multi-level degenerative disc disease with multi-level disc space narrowing. Mild loss of height of the L1 vertebrae. There is atherosclerotic calcification of the abdominal aorta without a demonstrated aneurysm. Calcified phleboliths are seen within the pelvis RAD/Lumbar Spine 2 or 3 Views IMPRESSION: Degenerative changes of the spine, as detailed above. Mild loss of height of the L1 vertebrae. Electronically Signed: Melquiades Stallings MD at 12:30 EST , Service support ,
[2021-12-12 12:02] LABS: Absolute Lymphocyte Count 1.18 X10^3/uL (0.83-4.51); Absolute Neutrophil Count 5.2 X10^3/uL (2.0-7.7); Basophil# 0.02 X10^3/uL; Basophil% 0.3 % (0-1); Eosinophil# 0.05 X10^3/uL; Eosinophils% 0.7 % (0-5); Hematocrit 35.1 % (40-54); Hemoglobin 11.3 g/dL (13.0-16.5); Lymphocyte # 1.18 X10^3/ul (0.83-4.51); Lymphocyte % 16.8 % (19-41); Mean Corp Hgb Conc 32.2 g/dL (32-36); Mean Corpuscular Hgb 28.3 pg (27.0-32.0); Mean Platelet Vol. 9.1 fl (6.2-12.0); Monocyte# 0.52 X10^3/uL; Monocyte% 7.4 % (0-10); NRBC Flagged by Analyzer 0 % (0-5); Neutrophil # 5.22 X10^3/uL (2.7-7.7); Neutrophil % 74.1 % (47-70); Platelet Count 282 K/mm3 (150-450); RBC Distribution Width CV 14.3 % (11.6-14.6); RBC Distribution Width SD 46.1 fl (35.1-43.9); Red Blood Count 3.99 M/mm3 (4.6-6.2)
[2021-12-12 12:14] LABS: Anion Gap 5 (5-15); BUN 13 mg/dL (7-18); BUN/Creat Ratio 10.7 RATIO (10-20); Calcium,Total 9.9 mg/dL (8.5-10.1); Chloride 105 mmol/L (98-107); Creatinine, Serum 1.22 mg/dL (0.70-1.30); EST Glomerular Filtration Rate 65 mL/min (>60); Est Glom Filt Rate - Afr Amer 79 mL/min (>60); Estimated Creatinine Clearance 82.02 ml/min; Glucose 110 mg/dL (74-106); Potassium 3.7 mmol/L (3.5-5.1); Sodium Level 138 mmol/L (136-145)
[2021-12-12] MEDS: HYDROcodone Bitartrate/Apap 5/325 Tablet PO (13:07)
[2021-12-12 13:11] VITALS: BP 103/65; PULSE 76; RESP 14; O2SAT 99
== END 2021-12-12 13:12 | disposition home or self-care (01) ==
PROVIDERS: Emergency Provider Emergency Medicine; PCP Internal Medicine; Visit Provider Emergency Medicine
DX: S32.019A Unspecified fracture of first lumbar vertebra, initial encounter for closed fracture (principal); C34.11 Malignant neoplasm of upper lobe, right bronchus or lung; R53.1 Weakness; E86.0 Dehydration; F12.10 Cannabis abuse, uncomplicated; E66.9 Obesity, unspecified; Z87.891 Personal history of nicotine dependence; W19.XXXA Unspecified fall, initial encounter
CPT/HCPCS: 72100; 80048; 85025; 96360; 99284; J7040; A4216

== ENCOUNTER 2022-01-24 11:03 | Emergency (ER) | payer MEDICAID, SELFPAY ==
[2021-06-14 10:52] VITALS: BMI 33.7
[2022-01-24 11:05] VITALS: BP 127/76; PULSE 88; RESP 16; TEMP 36.5; O2SAT 97; BMI 29.2
--- NOTE | 2022-01-24 12:20 | EDS_ITS ---
HPI History of Present Illness Chief Complaint: Nausea/Vomiting Informant: patient and spouse/S.O. Narrative Narrative: Patient has a history of non-small cell metastatic lung cancer. He has had this for many years. He is on another round of chemo. Last chemo was Thursday. He and his state that this episode seems just a little harder on him than some of the other chemo. Yet he has a history of chronic nausea for months. It gets worse with chemo. The nausea vomiting seem to get worse. He is really not having pain or dyspnea or other symptoms. But he is gotten to the point he really cannot keep crackers or water any liquids down. No hemoptysis o r hematemesis. No fevers. [facility] Medical History Abnormal PET scan of colon Acute on chronic diastolic CHF (congestive heart failure) Acute respiratory failure with hypoxia Adrenal nodule Anxiety and depression Asthma, moderate persistent Atrial fibrillation Atrial fibrillation with rapid ventricular response BiPAP (biphasic positive airway pressure) dependence Bipolar disorder Borderline type 2 diabetes mellitus Chemotherapy induced neutropenia Chronic respiratory failure CINV (chemotherapy-induced nausea and vomiting) Consolidation of right lower lobe of lung Dyspnea Encounter for education Encounter for education Essential (primary) hypertension Fatigue Hallucination Hallucinations, visual Hyperlipidemia Hypokalemia Liver metastasis Longstanding persistent atrial fibrillation Lung cancer Marijuana abuse Migraines Nausea Nausea & vomiting Nicotine dependence Nocturia Obesity Oral candidiasis ALEX (obstructive sleep apnea) Pancytopenia due to chemotherapy Pleural effusion, right Radiation dermatitis Rectal abnormality Rectal pain Regional lymph node metastasis present Smoker 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 classification Home Medications albuterol sulfate 90 mcg/actuation breath activated powder inhaler 2 inh INHALATION Q4H PRN PRN #1 each 01/21/21 [Rx Last Taken 08/13/21] pravastatin 40 mg tablet 40 mg PO DINNER #90 tablet 05/02/21 [Rx Last Taken 08/12/21] cholecalciferol (vitamin D3) 1,250 mcg PO SA 06/05/21 [History Last Taken 08/10/21] Disability Placard #1 ea 06/20/21 [Rx Last Taken Unknown] rivaroxaban 20 mg tablet 20 mg PO QDAY #30 tablet 06/26/21 [Rx Last Taken 08/12/21] pantoprazole 40 mg tablet,delayed release 40 mg PO DAILY #30 tab 07/15/21 [Rx Last Taken 08/13/21] nystatin 100,000 unit/mL oral suspension 5 ml PO Q6H #250 ml 07/25/21 [Rx Last Taken 08/13/21] fluoxetine 20 mg capsule 60 mg PO DAILY #270 cap 07/30/21 [Rx Last Taken 08/13/21] amiodarone 200 mg tablet 200 mg PO DAILY #90 tab 08/20/21 [Rx Last Taken Unknown] metoprolol tartrate 100 mg tablet 100 mg PO BID #180 tab 09/10/21 [Rx Last Taken Unknown] fluticasone propionate 50 mcg/actuation nasal spray,suspension 2 spray NASAL DAILY PRN PRN #16 g 09/18/21 [Rx Last Taken Unknown] polyethylene glycol 3350 17 gram oral powder packet 17 g PO DAILY PRN 30 Days #30 packet 09/18/21 [Rx Last Taken Unknown] furosemide 40 mg tablet 60 mg PO DAILY 30 Days #135 tab 09/30/21 [Rx Last Taken Unknown] lorazepam 0.5 mg tablet 0.5 mg PO ONCE PRN #1 tab 11/05/21 [Rx Last Taken Unknown] acetaminophen 500 mg tablet 500 mg PO BID PRN tab 11/14/21 [History Last Taken Unknown] loratadine 10 mg tablet 10 mg PO DAILY PRN #30 tab 12/05/21 [Rx Last Taken Unknown] hydrocodone-acetaminophen 1 tab PO Q4H PRN PRN 2 Days #10 tablet 12/12/21 [Rx Last Taken Unknown] doxazosin 2 mg tablet 2 mg PO DAILY #90 tablet 12/13/21 [Rx Last Taken Unknown] potassium chloride 20 mEq tablet,extended release 40 meq PO BID 90 Days #360 tab 12/25/21 [Rx Last Taken Unknown] Symbicort 160 mcg-4.5 mcg/actuation HFA aerosol inhaler 2 puff INHALATION BID #10.2 g NS 01/16/22 [Rx Last Taken Unknown] tiotropium bromide 2.5 mcg/actuation mist for inhalation 2 puff INHALATION DAILY #4 gm 01/16/22 [Rx Last Taken Unknown] prochlorperazine maleate 10 mg tablet 10 mg PO Q6H PRN #30 tab 01/21/22 [Rx Last Taken Unknown] metoclopramide HCl [Reglan] 5 mg PO Q6H PRN #12 tab 01/24/22 [Rx Last Taken Unknown] Allergy/AdvReac Type Severity Reaction Status Date / Time atezolizumab AdvReac Severe Pneumonia Verified 01/24/22 11:05 pioglitazone HCl [From Actos] AdvReac Severe Other Verified 01/24/22 11:05 Family History Father CAD (coronary artery disease) Hx CABG Family history of hypertension Family history of hyperlipidemia Hypertension CVA (cerebral vascular accident) Mother , Age 55 Sudden cardiac Family history of hypertension Sister Family history of hypertension Family history of hyperlipidemia Diabetes Grandfather CVA (cerebral vascular accident) Grandmother CVA (cerebral vascular accident) Uncle Lung cancer Surgical History History of cardioversion (03/2016) History of stomach ulcers History of thoracentesis (01/2020) History of tonsillectomy Pilonidal cyst (~1986) PORT PLACEMENT Social History Smoking Status: Former smoker quit date: 09/01/20 alcohol intake: never details: occasional substance use type: marijuana caffeine: Yes Type: carbonated beverages and coffee what type of physical activity do you participate in: none romero/restoration: Buddhism seatbelt use: always do you feel safe at home: Yes ROS ROS ED Constitutional Constitutional ED: Denies chills or fever(s) ENT ENT ED: Denies rhinorrhea or sore throat Cardiovascular Cardiovascular: Denies chest pain Respiratory/Chest Respiratory/Chest: Denies cough or dyspnea Gastrointestinal Gastrointestinal: Reports nausea and vomiting; Denies abdominal pain Genitourinary Genitourinary ED: Denies dysuria Musculoskeletal Musculoskeletal: Denies myalgias Integumentary Denies rash Neurologic Neurologic: Denies headache(s) Endocrine Endocrinology: Denies polydipsia or polyuria Allergic/Immunologic Allergic/Immunologic ED: Denies mouth swelling or urticaria EXAM Physical Exam Const Vital Signs: 01/24/22 11:05 01/24/22 14:05 Temperature 97.7 F L Temperature Source Temporal Pulse Rate 88 70 Respiratory Rate 16 16 Blood Pressure 127/76 H 132/78 H Blood Pressure Mean 93 96 Pulse Ox 97 98 Oxygen Delivery Method Room Air Positive well nourished and well developed General Appearance ED: well developed and NAD HEENT Reports moist mucous membranes Negative for trauma or tenderness Eyes Eyes Narrative: Suspect mild icterus General Eye ED: Yes scleral icterus Neck supple Chest Wall inspection of chest normal and palpation of chest normal Chest Narrative: Mediport is intact and clean appearing in the left upper chest. Resp normal respiratory effort and clear to auscultation bilaterally Cardio regular rate and regular rhythm GI normal to inspection, nondistended, normoactive bowel sounds Palpation: soft Extremity Extremity Narrative: Chronic stasis changes both lower extremities. Neuro oriented x3 Sensorium / Orientation: alert Psych mental status grossly normal Skin no rashes or lesions noted and no wounds MDM MDM MDM Narrative Medical decision making narrative: Patient feels better after Benadryl Reglan and IV fluids with Zofran. He is drank Coke. He has had ice. He is drinking water and ice now. He would like to go home. I think this is a reasonable option. He has had this is a recurrent issue. I will write for some Reglan. I also discussed adding Benadryl when he takes this. He already has Phenergan and ondansetron at home Blood work shows mild anemia. Platelets are normal. Electrolytes did show a mild bump in her creatinine and BUN consistent with some mild dehydration. Minimal bump in liver function tests. Lab Data Attestation: I reviewed the patient's lab results. Labs: Laboratory Results - last 24 hr 01/24/22 01/24/22 11:58 11:58 WBC 11.5 H RBC 3.89 L Hgb 11.2 L Hct 35.4 L MCV 91.0 MCH 28.8 MCHC 31.6 L RDW Std Deviation 55.9 H RDW Coeff of Benjamin 17.1 H Plt Count 312 MPV 9.5 Immature Gran % (Auto) 0.400 Neut % (Auto) 89.8 H Lymph % (Auto) 8.0 L [place] % (Auto) 1.7 Eos % (Auto) 0.0 Baso % (Auto) 0.1 Absolute Neuts (auto) 10.3 H Absolute Lymphs (auto) 0.92 Nucleated RBC % 0 Sodium 138 Potassium 3.7 Chloride 108 H Carbon Dioxide 22.0 Anion Gap 8 BUN 32 H Creatinine 1.95 H Estim Creat Clear Calc 51.31 Est GFR (MDRD) Af Amer 46 L Est GFR (MDRD) Non-Af 38 L BUN/Creatinine Ratio 16.4 Glucose 110 H Calcium 9.4 Total Bilirubin 0.40 AST 128 H ALT 152 H Alkaline Phosphatase 84 Total Protein 6.7 Albumin 2.7 L Globulin 4.0 Albumin/Globulin Ratio 0.7 L Discharge Plan Triage Chief Complaint: Nausea/Vomiting ED Provider: Richmond Sanchez Dx/Rx/DC Orders Clinical Impression: Chemotherapy induced nausea and vomiting, Acute dehydration Instructions: ED Vomiting (Adult) Prescriptions: New metoclopramide HCl [Reglan] 5 mg tablet 5 mg PO Q6H PRN (Reason: nausea and vomiting) Qty: 12 RF: 0 No Action metoprolol tartrate 100 mg tablet 100 mg PO BID Qty: 180 RF: 3 (DME) Disability Placard See Rx Instructions .Route .MEDSUPPLY Qty: 1 RF: 0 rivaroxaban 20 mg tablet 20 mg PO QDAY Qty: 30 RF: 12 acetaminophen [Tylenol Extra Strength] 500 mg tablet 500 mg PO BID PRNRF: 0 potassium chloride 20 mEq tablet extended release 40 meq PO BID 90 Days Qty: 360 RF: 1 loratadine [Claritin] 10 mg tablet 10 mg PO DAILY PRN (Reason: allergy symptoms) Qty: 30 RF: 1 prochlorperazine maleate 10 mg tablet 10 mg PO Q6H PRN (Reason: nausea and vomiting) Qty: 30 RF: 2 cholecalciferol (vitamin D3) 1,250 mcg (50,000 unit) capsule 1,250 mcg PO SA RF: 0 hydrocodone-acetaminophen [hydrocodone-acetaminophen] 1 TABLET tablet 1 tab PO Q4H PRN PRN (Reason: Pain) 2 Days Qty: 10 RF: 0 albuterol sulfate 90 mcg/actuation aerosol powdr breath activated 2 inh INHALATION Q4H PRN PRN (Reason: Sob &/Or Wheezing) Qty: 1 RF: 6 pravastatin 40 mg tablet 40 mg PO DINNER Qty: 90 RF: 3 pantoprazole [Protonix] 40 mg tablet,delayed release (DR/EC) 40 mg PO DAILY Qty: 30 RF: 3 nystatin 100,000 unit/mL suspension 5 ml PO Q6H Qty: 250 RF: 1 fluoxetine 20 mg capsule 60 mg PO DAILY Qty: 270 RF: 1 amiodarone 200 mg tablet 200 mg PO DAILY Qty: 90 RF: 3 polyethylene glycol 3350 17 gram powder in packet 17 g PO DAILY PRN (Reason: Constipation) 30 Days Qty: 30 RF: 1 fluticasone propionate 50 mcg/actuation spray,suspension 2 spray NASAL DAILY PRN PRN (Reason: Nasal Congestion) Qty: 16 RF: 3 furosemide 40 mg tablet 60 mg PO DAILY 30 Days Qty: 135 RF: 3 lorazepam 0.5 mg tablet 0.5 mg PO ONCE PRN (Reason: anxiety) Qty: 1 RF: 0 doxazosin 2 mg tablet 2 mg PO DAILY Qty: 90 RF: 3 tiotropium bromide 2.5 mcg/actuation mist 2 puff INHALATION DAILY Qty: 4 RF: 11 budesonide-formoterol [Symbicort] 160-4.5 mcg/actuation HFA aerosol inhaler 2 puff INHALATION BID Qty: 10.2 RF: 5 Primary Care Provider: Lizzeth Velasquez Referrals: Lizzeth Velasquez MD [Primary Care Provider] - 3-5 Days Disposition Disposition: Home, Self Care
[2022-01-24 12:51] LABS: Absolute Lymphocyte Count 0.92 X10^3/uL (0.83-4.51); Absolute Neutrophil Count 10.3 X10^3/uL (2.0-7.7); Basophil# 0.01 X10^3/uL; Basophil% 0.1 % (0-1); Hematocrit 35.4 % (40-54); Hemoglobin 11.2 g/dL (13.0-16.5); Lymphocyte # 0.92 X10^3/ul (0.83-4.51); Mean Corp Hgb Conc 31.6 g/dL (32-36); Mean Corpuscular Hgb 28.8 pg (27.0-32.0); Mean Platelet Vol. 9.5 fl (6.2-12.0); Monocyte# 0.19 X10^3/uL; Monocyte% 1.7 % (0-10); NRBC Flagged by Analyzer 0 % (0-5); Neutrophil # 10.34 X10^3/uL (2.7-7.7); Neutrophil % 89.8 % (47-70); Platelet Count 312 K/mm3 (150-450); RBC Distribution Width CV 17.1 % (11.6-14.6); RBC Distribution Width SD 55.9 fl (35.1-43.9); Red Blood Count 3.89 M/mm3 (4.6-6.2); White Blood Count 11.5 K/mm3 (4.4-11.0)
[2022-01-24] MEDS: Metoclopramide 10 MG/2 ML Vial 5 MG IV (13:03)
[2022-01-24] MEDS: Ondansetron 4 MG/2 ML Vial IV (13:03)
[2022-01-24] MEDS: DiphenhydrAMINE 50 MG/ML Syringe 25 MG IV (13:03)
[2022-01-24] MEDS: 0.9% Normal Saline 1,000 ML 999 ML IV (13:03)
[2022-01-24 13:14] LABS: ALB/GLOB Ratio 0.7 RATIO (0.9-2.4); AST(SGOT) 128 U/L (15-37); Alanine Aminotransfer ALT/SGPT 152 U/L (16-61); Albumin, Serum 2.7 g/dL (3.2-5.0); Alkaline Phosphatase 84 U/L (45-117); Anion Gap 8 (5-15); BUN 32 mg/dL (7-18); BUN/Creat Ratio 16.4 RATIO (10-20); Calcium,Total 9.4 mg/dL (8.5-10.1); Chloride 108 mmol/L (98-107); Creatinine, Serum 1.95 mg/dL (0.70-1.30); EST Glomerular Filtration Rate 38 mL/min (>60); Est Glom Filt Rate - Afr Amer 46 mL/min (>60); Estimated Creatinine Clearance 51.31 ml/min; Glucose 110 mg/dL (74-106); Potassium 3.7 mmol/L (3.5-5.1); Protein, Total 6.7 g/dL (6.4-8.2); Sodium Level 138 mmol/L (136-145)
[2022-01-24 14:05] VITALS: BP 132/78; PULSE 70; RESP 16; O2SAT 98
--- NOTE | 2022-01-24 17:11 | ED.RN ---
HEPARIN 5ML FLUSHED IN MEDPORT POST 20 CC NS FOR PORT DISCHARGE.
[2022-01-24 17:12] VITALS: RESP 18
== END 2022-01-24 17:22 | disposition home or self-care (01) ==
PROVIDERS: Emergency Provider Emergency Medicine; PCP Internal Medicine; Visit Provider Emergency Medicine
DX: R11.2 Nausea with vomiting, unspecified (principal); C34.90 Malignant neoplasm of unspecified part of unspecified bronchus or lung; J44.9 Chronic obstructive pulmonary disease, unspecified; F31.9 Bipolar disorder, unspecified; I48.11 Longstanding persistent atrial fibrillation; T45.1X5A Adverse effect of antineoplastic and immunosuppressive drugs, initial encounter; E86.0 Dehydration; E78.5 Hyperlipidemia, unspecified; D64.9 Anemia, unspecified; Z87.891 Personal history of nicotine dependence; I10 Essential (primary) hypertension; F41.9 Anxiety disorder, unspecified; G47.33 Obstructive sleep apnea (adult) (pediatric); Z79.899 Other long term (current) drug therapy; Z79.01 Long term (current) use of anticoagulants
CPT/HCPCS: 80053; 85025; 96361; 96374; 96375; 99284; J7030; A4216; J2405

== ENCOUNTER 2022-02-02 14:18 | Inpatient (IN) | payer MEDICAID, SELFPAY ==
[2021-06-14 10:52] VITALS: BMI 33.7
[2022-02-02] VITALS (18 sets, daily range): BP systolic 109–152; BP diastolic 50–104; PULSE 58–145; RESP 14–20; TEMP 36.1–36.7; O2SAT 94–100; BMI 29.3; BMI 28.7
--- NOTE | 2022-02-02 14:25 | EKG12_ITS ---
Test Reason : Blood Pressure : / mmHG Vent. Rate : 132 BPM Atrial Rate : 150 BPM P-R Int : 000 ms QRS Dur : 104 ms QT Int : 356 ms P-R-T Axes : 000 -04 185 degrees QTc Int : 527 ms Atrial fibrillation with premature ventricular or aberrantly conducted complexes ST & T wave abnormality, consider inferolateral ischemia Abnormal ECG Confirmed by ANNA BARKLEY, HÉCTOR ([id number]), make up editor SARY OLIVO ([id number]) on 02/04/2022 9:17:44 AM Referred By: LU Confirmed By:HÉCTOR CASTILLO MD
--- NOTE | 2022-02-02 15:13 | EDS_ITS ---
HPI History of Present Illness Chief Complaint: General Illness Informant: patient Onset/Context/Timing Onset: Weeks Context: Gradual Onset Timing: Continuous Current Severity: Mild Maximum Severity: Mild Narrative Narrative: 56-year-old male has a past medical history of A. fib, diabetes, COPD, lung cancer with liver mets. Patient states he had nausea and vomiting for around a month. Said diarrhea but that is improving. Says he takes about 10 pills every morning has been unable to keep those down. He denies any fever. States he was evaluated emergency department about a week ago he was in the emergency room about 9 hours and was eventually discharged home. Prior similar symptoms: Yes Recent Illness/Hospitalization: No PFSH PFS Medical History Abnormal PET scan of colon Acute on chronic diastolic CHF (congestive heart failure) Acute respiratory failure with hypoxia Adrenal nodule Anxiety and depression Asthma, moderate persistent Atrial fibrillation Atrial fibrillation with rapid ventricular response BiPAP (biphasic positive airway pressure) dependence Bipolar disorder Borderline type 2 diabetes mellitus Chemotherapy induced neutropenia Chronic respiratory failure CINV (chemotherapy-induced nausea and vomiting) Consolidation of right lower lobe of lung Dyspnea Encounter for education Encounter for education Essential (primary) hypertension Fatigue Hallucination Hallucinations, visual Hyperlipidemia Hypokalemia Liver metastasis Longstanding persistent atrial fibrillation Lung cancer Marijuana abuse Migraines Nausea Nausea & vomiting Nicotine dependence Nocturia Obesity Oral candidiasis ALEX (obstructive sleep apnea) Pancytopenia due to chemotherapy Pleural effusion, right Radiation dermatitis Rectal abnormality Rectal pain Regional lymph node metastasis present Smoker 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 classification Home Medications albuterol sulfate 90 mcg/actuation breath activated powder inhaler 2 inh INHALATION Q4H PRN PRN #1 each 01/21/21 [Rx Last Taken 08/13/21] pravastatin 40 mg tablet 40 mg PO DINNER #90 tablet 05/02/21 [Rx Last Taken 08/12/21] cholecalciferol (vitamin D3) 1,250 mcg PO TH 06/05/21 [History Last Taken 08/10/21] Disability Placard #1 ea 06/20/21 [Rx Last Taken Unknown] rivaroxaban 20 mg tablet 20 mg PO QDAY #30 tablet 06/26/21 [Rx Last Taken 08/12/21] pantoprazole 40 mg tablet,delayed release 40 mg PO DAILY #30 tab 07/15/21 [Rx Last Taken 08/13/21] fluoxetine 20 mg capsule 60 mg PO DAILY #270 cap 07/30/21 [Rx Last Taken ] fluticasone propionate 50 mcg/actuation nasal spray,suspension 2 spray NASAL DAILY PRN PRN #16 g 09/18/21 [Rx Last Taken Unknown] acetaminophen 500 mg tablet 500 mg PO BID PRN tab 11/14/21 [History Last Taken Unknown] doxazosin 2 mg tablet 2 mg PO DAILY #90 tablet 12/13/21 [Rx Last Taken Unknown] potassium chloride 20 mEq tablet,extended release 40 meq PO BID 90 Days #360 tab 12/25/21 [Rx Last Taken Unknown] Symbicort 160 mcg-4.5 mcg/actuation HFA aerosol inhaler 2 puff INHALATION BID #10.2 g NS 01/16/22 [Rx Last Taken Unknown] tiotropium bromide 2.5 mcg/actuation mist for inhalation 2 puff INHALATION DAILY #4 gm 01/16/22 [Rx Last Taken Unknown] prochlorperazine maleate 10 mg tablet 10 mg PO Q6H PRN #30 tab 01/21/22 [Rx Last Taken Unknown] metoclopramide HCl [Reglan] 5 mg PO Q6H PRN #12 tab 01/24/22 [Rx Last Taken Unknown] amiodarone 200 mg PO DAILY 02/02/22 [History Last Taken Unknown] loratadine [Claritin] 10 mg PO DAILY 02/02/22 [History Last Taken Unknown] metoprolol tartrate 50 mg PO BID 02/02/22 [History Last Taken Unknown] polyethylene glycol 3350 [Miralax] 17 g PO DAILY 02/02/22 [History Last Taken Unknown] Allergy/AdvReac Type Severity Reaction Status Date / Time atezolizumab AdvReac Severe Pneumonia Verified 02/02/22 14:29 pioglitazone HCl [From Actos] AdvReac Severe Other Verified 02/02/22 14:29 Family History Father CAD (coronary artery disease) Hx CABG Family history of hypertension Family history of hyperlipidemia Hypertension CVA (cerebral vascular accident) Mother , Age 55 Sudden cardiac Family history of hypertension Sister Family history of hypertension Family history of hyperlipidemia Diabetes Grandfather CVA (cerebral vascular accident) Grandmother CVA (cerebral vascular accident) Uncle Lung cancer Surgical History History of cardioversion (03/2016) History of stomach ulcers History of thoracentesis (01/2020) History of tonsillectomy Pilonidal cyst (~1986) PORT PLACEMENT Social History Smoking Status: Former smoker quit date: 09/01/20 alcohol intake: never details: occasional substance use type: marijuana caffeine: Yes Type: carbonated beverages and coffee what type of physical activity do you participate in: none romero/hinduism: [employer] seatbelt use: always do you feel safe at home: Yes ROS ROS ED ROS Narrative Nausea and vomiting. Weakness. Review of Systems ROS Unobtainable: Denies due to encephalopathy Constitutional Constitutional ED: Denies chills or fever(s) Eyes Eyes: Denies change in vision ENT ENT ED: Denies ear pain Cardiovascular Cardiovascular: Reports racing heartbeat; Denies chest pain or palpitations Respiratory/Chest Respiratory/Chest: Denies cough, dyspnea or sputum Gastrointestinal Gastrointestinal: Reports abdominal pain, diarrhea, nausea and vomiting Genitourinary Genitourinary ED: Denies dysuria Musculoskeletal Musculoskeletal: Denies myalgias Integumentary Denies rash Neurologic Neurologic: Denies headache(s) Psychiatric Psychiatric: Denies depression Endocrine Endocrinology: Denies polyuria Allergic/Immunologic Allergic/Immunologic ED: Denies urticaria EXAM Physical Exam Narrative Exam Narrative: 56-year-old male in A. fib on the monitor rate about 128. H EENT exam mild Sudhir members. Neck nontender no lymphadenopathy. Lungs clear to auscultation bilaterally. Heart irregularly irregular A. fib rate in 120s. Abdomen soft nondistended normal bowel sounds no peritoneal signs. No signs of obstruction. Moving all 4 extremities. Nontender no edema. Neurologically is awake and alert. No focal motor deficits Const Vital Signs: 02/02/22 14:19 02/02/22 14:28 02/02/22 15:40 Temperature 97.5 F L Temperature Source Axillary Pulse Rate 128 H 145 H Respiratory Rate 18 17 Respiratory Effort Normal Non-Labored Respiratory Pattern Normal Blood Pressure 152/82 H 135/92 H Blood Pressure Mean 105 106 Pulse Ox 96 98 Oxygen Delivery Method Room Air Room Air 02/02/22 15:45 02/02/22 15:51 Temperature Temperature Source Pulse Rate 83 102 H Respiratory Rate 18 Respiratory Effort Respiratory Pattern Blood Pressure 120/79 Blood Pressure Mean 92 Pulse Ox 95 Oxygen Delivery Method Room Air Positive well nourished and well developed; Negative for cachectic, contractures or unkempt General Appearance ED: well developed and NAD; Negative for unkempt, cachectic, contractures, cyanotic, diaphoretic or pallor Nutritional Appearance: Negative for cachectic HEENT Reports dry mucous membranes Negative for trauma or tenderness Mouth ED: Yes dry mucous membranes Mouth: dry mucous membranes Eyes PERRL and EOMs intact bilaterally General Eye ED: Negative for pale conjunctiva or scleral icterus Neck no lymphadenopathy, supple and no JVD General: Negative for tenderness Chest Wall inspection of chest normal and palpation of chest normal Resp normal respiratory effort and clear to auscultation bilaterally Effort and Inspection: Negative for pain with movement Auscultation: Negative for rales, rhonchi or wheezes Cardio no murmurs; Negative for regular rate Rate: tachycardic GI normal to inspection, nondistended, normoactive bowel sounds, non-tender, non- distended and no masses Inspection: Negative for abdominal distention Auscultation: normoactive bowel sounds; Negative for hyperactive bowel sounds or hypoactive bowel sounds Palpation: soft; Negative for tender, guarding or rebound tenderness present Back/Spine no CVA tenderness Extremity normal to inspection General Extremety ED: Negative for edema or tenderness General Extremity: Negative for edema Neuro oriented x3 Sensorium / Orientation: alert; Negative for orientation impaired, lethargic or stuporous Motor Exam: strength 5/5 throughout Psych mental status grossly normal Appearance: Negative for unkempt Attitude: No agitated Mood & Affect: Negative for depressed, anxious or tearful Skin no rashes or lesions noted and no wounds General Skin Exam: Negative for jaundice or pallor MDM MDM MDM Narrative Medical decision making narrative: 56-year-old male A. fib RVR with nausea and vomiting for about a month and unable to keep his daily medications down. Resents with generalized weakness. Screening labs are being obtained he will be treated with IV fluids. IV Zofran for his nausea. IV Cardizem for his A. fib RVR. Repeat exam patient's heart rate is still A. fib RVR still around 131. He will be placed on a Cardizem drip. Clinically his labs are consistent with a pancytopenia. Dehydration. Urinalysis is pending. I will speak to the hospitalist about admission. Lab Data Attestation: I reviewed the patient's lab results. Lab results narrative: CBC shows a white count of 2.1. H&H 11.2 and 33.3. Platelets are low also at 110. Patient has a pancytopenia. Electrolytes show sodium 133. Gap of 8 BUN and creatinine at 33 and 1.6 consistent with dehydration. Liver enzymes are unremarkable. Lipase is normal at 146. Labs: Laboratory Results - last 24 hr 02/02/22 02/02/22 15:35 15:35 WBC 2.1 L RBC 3.77 L Hgb 11.2 L Hct 33.3 L MCV 88.3 MCH 29.7 MCHC 33.6 RDW Std Deviation 52.1 H RDW Coeff of Benjamin 16.4 H Plt Count 110 L MPV 10.7 Neut % (Auto) Not Reportable Absolute Neuts (auto) 0.9 L Absolute Lymphs (auto) 0.60 L Total Counted 100 Neutrophils % (Manual) 37 L Band Neutrophils % 4 Lymphocytes % (Manual) 29 Monocytes % (Manual) 30 H Diff Path Review May foll Platelet Estimate ADEQUATE RBC Morphology NORM C+C Sodium 133 L Potassium 3.6 Chloride 99 Carbon Dioxide 26.0 Anion Gap 8 BUN 33 H Creatinine 1.60 H Estim Creat Clear Calc 62.54 Est GFR (MDRD) Af Amer 58 L Est GFR (MDRD) Non-Af 48 L BUN/Creatinine Ratio 20.6 H Glucose 107 H Calcium 9.7 Total Bilirubin 0.50 AST 21 ALT 24 Alkaline Phosphatase 73 Troponin I High Sens 14 Total Protein 6.3 L Albumin 2.4 L Globulin 3.9 Albumin/Globulin Ratio 0.6 L Lipase 146 Radiography Chest X-Ray - ED: 1 View, Read by ED Physician, Heart, Lungs, Mediastinum, Bony Structures, Chronic Changes, Cardiomegaly and Right Effusion Diagnostic Testing: Clinical Impression(s) from Imaging Studies Chest X-Ray 02/02/22 15:48 IMPRESSION: No active disease. Electronically Signed: Pb Troncoso MD at 16:02 EST , Chest x-ray, portable, single view shows cardiomegaly with a right pleural effusion. This all appears to be chronic. Rhythm Strip Rhythm Strip: A-fib Rate: 132 Ectopy: None EKG Initial EKG: Attestation: I personally reviewed and interpreted this EKG as follows: Interpretation: No Acute Injury Pattern and Atrial Fibrillation Comments: A. fib RVR 132. Homans' sign is benign. Prior EKG tracings: available for review Prior: Unchanged Discharge Plan Dx/Rx/DC Orders Clinical Impression: Atrial fibrillation with rapid ventricular response, Nausea & vomiting, History of lung cancer, Acute dehydration Disposition Disposition: Acute Care Hospital [facility]
[2022-02-02] MEDS: Ondansetron 4 MG/2 ML Vial IV ×2 (15:42→21:24)
[2022-02-02] MEDS: 0.9% Normal Saline 1,000 ML 15 ML IV (15:42)
[2022-02-02] MEDS: dilTIAZem 25 MG/5 ML Vial 20 MG IV BOLUS (15:42)
--- NOTE | 2022-02-02 15:48 | RAD_ITS ---
STUDY: X-RAY CHEST REASON FOR EXAM: Male, 56 years old. weakness TECHNIQUE: Single AP portable view of the chest. COMPARISON: 10/08/2021 FINDINGS: Left internal jugular chest port which is unchanged. The lungs are clear and expanded. Elevated right hemidiaphragm with volume loss which is unchanged. There is moderate cardiac enlargement. Normal mediastinum and inge. Normal visualized pulmonary arteries. Normal visualized aortic arch and descending thoracic aorta. Normal visualized thoracic spine. Normal visualized ribs, clavicles, and shoulders. There is no demonstrated abnormality of the visualized soft tissue structures of the upper abdomen. RAD/Chest 1 View (Portable) IMPRESSION: No active disease. Electronically Signed: Pb Troncoso MD at 16:02 EST ,
[2022-02-02 15:53] LABS: Hematocrit 33.3 % (40-54); Hemoglobin 11.2 g/dL (13.0-16.5); Mean Corp Hgb Conc 33.6 g/dL (32-36); Mean Corpuscular Hgb 29.7 pg (27.0-32.0); Mean Corpuscular Volume 88.3 fL (80-94); Mean Platelet Vol. 10.7 fl (6.2-12.0); POSITIVE DIFFERENTIAL YES; POSITIVE MORPHOLOGY YES; Platelet Count 110 K/mm3 (150-450); RBC Distribution Width CV 16.4 % (11.6-14.6); RBC Distribution Width SD 52.1 fl (35.1-43.9); Red Blood Count 3.77 M/mm3 (4.6-6.2); White Blood Count 2.1 K/mm3 (4.4-11.0)
[2022-02-02 15:57] LABS: Differential Indicated MANUAL DIFF
[2022-02-02 16:18] LABS: Lymphocyte 29 % (19-41); Monocyte 30 % (0-10); Neutrophil-Band 4 % (0-5); Neutrophil-Segmented 37 % (47-70); Platelet Estimate ADEQUATE (ADEQ); Total Cells Counted 100 (MANUAL DIFF)
[2022-02-02 16:19] LABS: Red Cell Morphology NORM C+C NORMAL (NORM C&C)
[2022-02-02 16:20] LABS: ALB/GLOB Ratio 0.6 RATIO (0.9-2.4); AST(SGOT) 21 U/L (15-37); Absolute Neutrophil Count 0.9 X10^3/uL (2.0-7.7); Alanine Aminotransfer ALT/SGPT 24 U/L (16-61); Albumin, Serum 2.4 g/dL (3.2-5.0); Alkaline Phosphatase 73 U/L (45-117); Anion Gap 8 (5-15); BUN 33 mg/dL (7-18); BUN/Creat Ratio 20.6 RATIO (10-20); Calcium,Total 9.7 mg/dL (8.5-10.1); Chloride 99 mmol/L (98-107); EST Glomerular Filtration Rate 48 mL/min (>60); Est Glom Filt Rate - Afr Amer 58 mL/min (>60); Estimated Creatinine Clearance 62.54 ml/min; Globulin 3.9 g/dL (2.2-4.2); Glucose 107 mg/dL (74-106); Lipase 146 U/L (73-393); Potassium 3.6 mmol/L (3.5-5.1); Protein, Total 6.3 g/dL (6.4-8.2); Sodium Level 133 mmol/L (136-145); Troponin-I HS 14 pg/mL (3.0-78.0)
[2022-02-02 16:56] LABS: Mucous, Urine 0 SEEN /hpf (<or=2+); Red Blood Cells-Urine 0 SEEN /hpf (0-5)
[2022-02-02 16:58] LABS: Color, Urine Yellow (Yellow); Glucose, Dipstick Normal (Normal); Ketone-Dipstick 5 mg/dl (Negative); Leukocyte Esterase-Dipstick 25 /ul (Negative); Nitrite-Dipstick Negative (Negative); Occult Blood-Urine Negative /ul (Negative); Protein-Dipstick 30 mg/dl (Negative); Urine Clarity Sl. Cloudy (Clear); Urine Urobilinogen 4 mg/dl (Normal)
[2022-02-02 17:00] LABS: Urine Bilirubin Dipstick 3 mg/dL (Negative)
[2022-02-02 17:06] LABS: Amorphous Sediment 1+ PHOS; Bacteria RARE /hpf (None Seen); Calcium Oxalate Crystals Ur RARE /hpf (<or=2+); Squamous Epithelial Cells - UA 0-5 SEEN /hpf (0-5); White Blood Cells 0-5 SEEN /hpf (0-5)
--- NOTE | 2022-02-02 17:17 | NURSING ---
PCU INDY AFIB RVR, LUNG CA WITH METS, VOMITING, DEHYDRATION
--- NOTE | 2022-02-02 17:28 | PCM.HP.STD ---
HPI - General General Date of Admission: 02/02/22 Date of Service: 02/02/22 Chief Complaint: Nausea vomiting HPI Narrative RONALDO ADAM, is a 56 M who presents with several week several month history of intractable nausea and vomiting. It is progressively gotten worse and patient has been unable to take any of his home meds including medication for atrial fibrillation. He is unable to take oral and just immediately vomits. He is currently undergoing chemotherapy for small cell lung cancer. He is involved with palliative care but he is not hospice yet. Patient is to be following up with oncology this coming week for lab test to initiate his next round of chemotherapy if necessary or if he qualifies. The patient presented emergency room and was found be in A. fib with RVR. Did receive a bolus of diltiazem in order drip. Patient did receive some IV fluids while he was in the emergency room. [facility] Medical History Abnormal PET scan of colon Acute on chronic diastolic CHF (congestive heart failure) Acute respiratory failure with hypoxia Adrenal nodule Anxiety and depression Asthma, moderate persistent Atrial fibrillation Atrial fibrillation with rapid ventricular response BiPAP (biphasic positive airway pressure) dependence Bipolar disorder Borderline type 2 diabetes mellitus Chemotherapy induced neutropenia Chronic respiratory failure CINV (chemotherapy-induced nausea and vomiting) Consolidation of right lower lobe of lung Dyspnea Encounter for education Encounter for education Essential (primary) hypertension Fatigue Hallucination Hallucinations, visual Hyperlipidemia Hypokalemia Liver metastasis Longstanding persistent atrial fibrillation Lung cancer Marijuana abuse Migraines Nausea Nausea & vomiting Nicotine dependence Nocturia Obesity Oral candidiasis ALEX (obstructive sleep apnea) Pancytopenia due to chemotherapy Pleural effusion, right Radiation dermatitis Rectal abnormality Rectal pain Regional lymph node metastasis present Smoker 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 classification Home Medications albuterol sulfate 90 mcg/actuation breath activated powder inhaler 2 inh INHALATION Q4H PRN PRN #1 each 01/21/21 [Rx Last Taken 08/13/21] pravastatin 40 mg tablet 40 mg PO DINNER #90 tablet 05/02/21 [Rx Last Taken 08/12/21] cholecalciferol (vitamin D3) 1,250 mcg PO TH 06/05/21 [History Last Taken 08/10/21] Disability Placard #1 ea 06/20/21 [Rx Last Taken Unknown] rivaroxaban 20 mg tablet 20 mg PO QDAY #30 tablet 06/26/21 [Rx Last Taken 08/12/21] pantoprazole 40 mg tablet,delayed release 40 mg PO DAILY #30 tab 07/15/21 [Rx Last Taken 08/13/21] fluoxetine 20 mg capsule 60 mg PO DAILY #270 cap 07/30/21 [Rx Last Taken 08/13/21] fluticasone propionate 50 mcg/actuation nasal spray,suspension 2 spray NASAL DAILY PRN PRN #16 g 09/18/21 [Rx Last Taken Unknown] acetaminophen 500 mg tablet 500 mg PO BID PRN tab 11/14/21 [History Last Taken Unknown] doxazosin 2 mg tablet 2 mg PO DAILY #90 tablet 12/13/21 [Rx Last Taken Unknown] potassium chloride 20 mEq tablet,extended release 40 meq PO BID 90 Days #360 tab 12/25/21 [Rx Last Taken Unknown] Symbicort 160 mcg-4.5 mcg/actuation HFA aerosol inhaler 2 puff INHALATION BID #10.2 g NS 01/16/22 [Rx Last Taken Unknown] tiotropium bromide 2.5 mcg/actuation mist for inhalation 2 puff INHALATION DAILY #4 gm 01/16/22 [Rx Last Taken Unknown] prochlorperazine maleate 10 mg tablet 10 mg PO Q6H PRN #30 tab 01/21/22 [Rx Last Taken Unknown] metoclopramide HCl [Reglan] 5 mg PO Q6H PRN #12 tab 01/24/22 [Rx Last Taken Unknown] amiodarone 200 mg PO DAILY 02/02/22 [History Last Taken Unknown] loratadine [Claritin] 10 mg PO DAILY 02/02/22 [History Last Taken Unknown] metoprolol tartrate 50 mg PO BID 02/02/22 [History Last Taken Unknown] polyethylene glycol 3350 [Miralax] 17 g PO DAILY 02/02/22 [History Last Taken Unknown] Allergy/AdvReac Type Severity Reaction Status Date / Time atezolizumab AdvReac Severe Pneumonia Verified 02/02/22 14:29 pioglitazone HCl [From Actos] AdvReac Severe Other Verified 02/02/22 14:29 Family History Father CAD (coronary artery disease) Hx CABG Family history of hypertension Family history of hyperlipidemia Hypertension CVA (cerebral vascular accident) Mother , Age 55 Sudden cardiac Family history of hypertension Sister Family history of hypertension Family history of hyperlipidemia Diabetes Grandfather CVA (cerebral vascular accident) Grandmother CVA (cerebral vascular accident) Uncle Lung cancer Surgical History History of cardioversion (03/2016) History of stomach ulcers History of thoracentesis (01/2020) History of tonsillectomy Pilonidal cyst (~1986) PORT PLACEMENT Social History Smoking Status: Former smoker quit date: 09/01/20 alcohol intake: never details: occasional substance use type: marijuana caffeine: Yes Type: carbonated beverages and coffee what type of physical activity do you participate in: none romero/rastafarian: Episcopal seatbelt use: always do you feel safe at home: Yes SCOTTIE Oneill Feels weak in his legs. No abdominal pain. No chest pain no palpitations. All review of systems were negative except as mentioned above in the history of present illness and the other review of systems. Vital Signs Vital Signs Vital Signs: 02/02/22 14:19 02/02/22 14:28 02/02/22 15:40 Temperature 36.4 C L Temperature Source Axillary Pulse Rate 128 H 145 H Respiratory Rate 18 17 Respiratory Effort Normal Non-Labored Respiratory Pattern Normal Blood Pressure 152/82 H 135/92 H Blood Pressure Mean 105 106 Pulse Ox 96 98 Oxygen Delivery Method Room Air Room Air 02/02/22 15:45 02/02/22 15:51 Temperature Temperature Source Pulse Rate 83 102 H Respiratory Rate 18 Respiratory Effort Respiratory Pattern Blood Pressure 120/79 Blood Pressure Mean 92 Pulse Ox 95 Oxygen Delivery Method Room Air Weight Weight: 109.3 kg Body Mass Index (BMI) 29.3 Physical Exam Const alert and no apparent distress Constitutional Narrative: Actively vomiting while is in the room. Appears older than stated age. General Appearance: cooperative HEENT normocephalic, head/scalp atraumatic, hearing grossly normal bilaterally and moist oral mucous membranes Eyes PERRL and EOMs intact bilaterally Neck no lymphadenopathy and supple Resp normal respiratory effort, no retractions, no use of accessory muscles and clear to auscultation bilaterally Cardio Cardio Narrative: Irregularly irregular GI normal to inspection, nondistended, normoactive bowel sounds and soft to palpation Extremity normal to inspection and no clubbing, cyanosis or edema Extremity Narrative: Muscle wasting in the lower extremities. Skin Skin Narrative: Venous stasis dermatitis in lower extremities. Neuro moves all extremities and no focal motor deficits Sensorium / Orientation: awake and alert Psych affect normal Results Lab / Micro Data Attestation: I reviewed the patient's lab results. Result Diagrams: 02/02/22 15:35 02/02/22 15:35 Labs: Laboratory Results - last 24 hr 02/02/22 15:35: WBC 2.1 L, RBC 3.77 L, Hgb 11.2 L, Hct 33.3 L, MCV 88.3, MCH 29.7, MCHC 33.6, RDW Std Deviation 52.1 H, RDW Coeff of Benjamin 16.4 H, Plt Count 110 L, MPV 10.7, Neut % (Auto) Not Reportable, Absolute Neuts (auto) 0.9 L, Absolute Lymphs (auto) 0.60 L, Total Counted 100, Neutrophils % (Manual) 37 L, Band Neutrophils % 4, Lymphocytes % (Manual) 29, Monocytes % (Manual) 30 H, Diff Path Review March, Platelet Estimate ADEQUATE, RBC Morphology NORM C+C 02/02/22 15:35: Sodium 133 L, Potassium 3.6, Chloride 99, Carbon Dioxide 26.0, Anion Gap 8, BUN 33 H, Creatinine 1.60 H, Estim Creat Clear Calc 62.54, Est GFR (MDRD) Af Amer 58 L, Est GFR (MDRD) Non-Af 48 L, BUN/Creatinine Ratio 20.6 H, Glucose 107 H, Calcium 9.7, Total Bilirubin 0.50, AST 21, ALT 24, Alkaline Phosphatase 73, Troponin I High Sens 14, Total Protein 6.3 L, Albumin 2.4 L, Globulin 3.9, Albumin/Globulin Ratio 0.6 L, Lipase 146 02/02/22 16:50: Urine Color Yellow, Urine Clarity Sl. Cloudy, Urine pH 6.0, Ur Specific [place] 1.020, Urine Protein 30 H, Urine Glucose (UA) Normal, Urine Ketones 5 H, Urine Occult Blood Negative, Urine Nitrite Negative, Urine Bilirubin 3 H, Urine Urobilinogen 4 H, Ur Leukocyte Esterase 25 H, Urine RBC 0 SEEN, Urine WBC 0-5 SEEN, Ur Squamous Epith Cells 0-5 SEEN, Calcium Oxalate Crystal RARE, Amorphous Sediment 1+ PHOS, Urine Bacteria RARE, Urine Mucus 0 SEEN Rhythm Strip Rhythm Strip: A-fib Rate: 132 Ectopy: None EKG Initial EKG: Attestation: I personally reviewed and interpreted this EKG as follows: EKG Rhythm Intrepretation: Atrial Fibrillation Radiology Impression Chest X-Ray 02/02/22 15:48 IMPRESSION: No active disease. Electronically Signed: Pb Troncoso MD at 16:02 EST , Assessment & Plan Assessment/Plan (1) Atrial fibrillation with rapid ventricular response: (2) Nausea & vomiting: QUALIFIERS: Vomiting type: unspecified Qualified Code(s): R11.2 - Nausea with vomiting, unspecified (3) History of lung cancer: PLAN: 1. Atrial fibrillation with RVR Likely due to the fact is not been able to take his medicine over the past several days or weeks due to vomiting. States that he takes medicine and that he season with his emesis. He had home takes amiodarone and metoprolol tartrate and his anticoagulation is rivaroxaban although his medications to be held because he is just actively vomiting. Plan: He has been started on diltiazem drip and will continue with that. Will see if any additional agents such as an amiodarone drip may be necessary. Anticoagulate him until he can take oral with enoxaparin 2. Intractable nausea and vomiting Secondary to chemotherapy Plan: Check an abdominal x-ray to rule out ileus or small bowel obstruction Antiemetics with Zofran and Compazine I will put the patient on a regular diet as he feels very confident that he feels to tolerate food here. If not then we could de-escalate him to clear diet or n.p.o. if necessary. 3. Diarrhea Unclear etiology Plan: Check C. difficile as is been ongoing for some time Hold off on any antidiarrheals until C. difficile and small bowel obstruction ruled out 4. Small cell lung cancer Stage IIIb Liver metastasis. No brain metastasis. Patient is to follow-up with Dr. Johnson on Thursday. I am unsure if he will be able to make that appointment. Currently undergoing palliative care. Though he suspects hospice is on the horizon. 6. VTE prophylaxis: Not indicated as he is anticoagulated 7. COVID-19 vaccination status: Patient is vaccinated. 8. CODE STATUS: Addressed with the patient. Patient said that he wishes to be full code but does not want to be intubated. Told him that his mostly impractical for most situations were some surprise CPR. He then changed his mind to DNR Comfort Care arrest no intubation. Patient apprised that he may change his mind at any point if he decides that we can change that order I did recommend DNR Comfort Care arrest and patient though. Charges/Coding Visit Charges Inpatient E&M: 10607 Init Hosp L3
[2022-02-02 18:54] LABS: Troponin-I HS 16 pg/mL (3.0-78.0)
[2022-02-02] MEDS: 0.9% Normal Saline 1,000 ML 125 ML IV (18:57)
--- NOTE | 2022-02-02 19:40 | RAD_ITS ---
EXAM: XR ABDOMEN, 1 VIEW : 1965 CLINICAL INDICATION: intractable nausea and vomiting TECHNIQUE: Frontal supine view of the abdomen/pelvis. This report was created using [employer] report generation technology. COMPARISON: None. FINDINGS: LOWER THORAX: No acute pathology. GASTROINTESTINAL TRACT: There are gas-filled loops of large and small bowel may represent enteritis or mild ileus. There is no obstruction. ORGANS: Unremarkable as visualized. No organomegaly. No abnormal calcifications. BONES/JOINTS: No acute pathology. SOFT TISSUES: No acute pathology. RAD/Abdomen Single View IMPRESSION: Gas-filled loops of large and small bowel which may represent enteritis or an ileus. There is no obstruction. at 0028 Reported and signed by: Narciso Mcdonald MD Electronically Signed: Narciso Mcdonald MD at 0:27 EST ,
[2022-02-02] MEDS: Acetaminophen 500 MG Tablet PO (20:43)
[2022-02-02] MEDS: Enoxaparin 120 MG/0.8 ML Syringe 110 MG SC (21:16)
[2022-02-02 21:56] LABS: Troponin-I HS 13 pg/mL (3.0-78.0)
[2022-02-03] VITALS (35 sets, daily range): BP systolic 109–148; BP diastolic 70–95; PULSE 74–99; RESP 12–20; TEMP 36.6–37.1; O2SAT 92–100
[2022-02-03] MEDS: 0.9% Normal Saline 1,000 ML 125 ML IV ×2 (03:08→11:15)
[2022-02-03] MEDS: Ondansetron 4 MG/2 ML Vial IV ×2 (06:03→15:42)
[2022-02-03 07:05] LABS: Absolute Lymphocyte Count 1.04 X10^3/uL (0.83-4.51); Absolute Neutrophil Count 0.5 X10^3/uL (2.0-7.7); Basophil# 0.02 X10^3/uL; Basophil% 0.9 % (0-1); Eosinophil# 0.02 X10^3/uL; Eosinophils% 0.9 % (0-5); Hemoglobin 10.6 g/dL (13.0-16.5); Lymphocyte # 1.04 X10^3/ul (0.83-4.51); Lymphocyte % 46.2 % (19-41); Mean Corp Hgb Conc 33.1 g/dL (32-36); Mean Corpuscular Hgb 29.4 pg (27.0-32.0); Mean Corpuscular Volume 88.6 fL (80-94); Monocyte# 0.61 X10^3/uL; Monocyte% 27.1 % (0-10); NRBC Flagged by Analyzer 0 % (0-5); Neutrophil # 0.51 X10^3/uL (2.7-7.7); Neutrophil % 22.7 % (47-70); POSITIVE DIFFERENTIAL YES; POSITIVE MORPHOLOGY YES; Platelet Count 118 K/mm3 (150-450); RBC Distribution Width CV 16.5 % (11.6-14.6); RBC Distribution Width SD 53.5 fl (35.1-43.9); Red Blood Count 3.61 M/mm3 (4.6-6.2); White Blood Count 2.3 K/mm3 (4.4-11.0)
[2022-02-03 07:07] LABS: Differential Indicated SCAN CRITERIA MET
[2022-02-03 07:36] LABS: ALB/GLOB Ratio 0.6 RATIO (0.9-2.4); AST(SGOT) 22 U/L (15-37); Alanine Aminotransfer ALT/SGPT 24 U/L (16-61); Albumin, Serum 2.3 g/dL (3.2-5.0); Alkaline Phosphatase 73 U/L (45-117); Anion Gap 8 (5-15); BUN 34 mg/dL (7-18); BUN/Creat Ratio 19.9 RATIO (10-20); Calcium,Total 8.9 mg/dL (8.5-10.1); Chloride 100 mmol/L (98-107); Creatinine, Serum 1.71 mg/dL (0.70-1.30); EST Glomerular Filtration Rate 44 mL/min (>60); Est Glom Filt Rate - Afr Amer 53 mL/min (>60); Estimated Creatinine Clearance 58.52 ml/min; Globulin 3.8 g/dL (2.2-4.2); Glucose 117 mg/dL (74-106); Potassium 3.6 mmol/L (3.5-5.1); Protein, Total 6.1 g/dL (6.4-8.2); Sodium Level 131 mmol/L (136-145)
[2022-02-03] MEDS: Enoxaparin 120 MG/0.8 ML Syringe 110 MG SC ×2 (08:21→22:07)
--- NOTE | 2022-02-03 10:42 | CASEMGMT ---
Addendum entered by Miguelina Emerson 02/03/22 11:46: Per palliative, they do not need referred unless there is new issue. No referral placed at this time. Pelon BARR CM Original Note: Per [facility] palliative, pt did sign consents with them and they need to schedule to have INSURANCE UNDERWRITER SALES visit. Message out to palliative to see if they want to see pt while here. Pelon BARR CM
--- NOTE | 2022-02-03 11:30 | CASEMGMT ---
CORTNEY MORA assessment: Face to Face with patient for initial transition planning/care coordination assessment. CORTNEY MORA introduced self and role at [facility], pt voices understanding and consents to assessment. Pt is sitting up in chair in no distress on room air. Pt is A/Ox4 and answers all questions appropriately. Care providers, pharmacy, and demographics verified. Presentation: Pt c/o general weakness, N/V-hx small cell lung cancer w/ liver mets Admitting dx: Afib RVR PCP: Eva Specialists: Vitaliy, onc; Jonathan pulm; Olive, cardio Preferred Pharmacy: [facility] Insurance: [facility] Prescription Benefit: [facility] Living Will/HPOA: Pt has LW/HPOA and pt is aware that they are on file at [facility]. Pt's sister, Emily Gomez, is HPOA. LNOK: Emily Gomez, sister/HPOA Living Arrangements: Pt lives with lives in 2 story duplex and sister, Emily, lives on other side. Pt states his bedroom is upstairs and his sister helps with ADL's. Transportation: Pt states sister drives and states some transportation concerns. Pt provided with [facility] van transport info. DME/HHC: Pt has the following DME: cane, w/c, walker, BSC, and cpap(hasn't used since 05/2021). Pt states no need for any further DME. Pt states no hx of HHC or SNF. Pt has open referral with palliative and is just awaiting appt with NURSE REVIEWER. Pt states no concerns with going home at time of discharge. Pt is on disability. Pt states quit smoking cigarettes in 08/2020 and does not drink ETOH. Pt states no further concerns/needs. CM to follow for any further discharge planning/needs. Advised pt to ask for CM if any further questions/concerns/needs arise, voices understanding. Pt Goal: Home Plan: [place] CORTNEY MORA
[2022-02-03] MEDS: proCHLORPERazine 10 MG/2 ML Vial 5 MG IV ×2 (11:35→21:59)
--- NOTE | 2022-02-03 13:53 | PN.HOSP_ITS ---
Documented by User: Cosmo PACK 02/03/22 14:05 Subjective Subjective Patient is a 56-year-old male comfortably resting in a chair, alert and orient x3. Patient reports that nausea and vomiting are controlled for now, denies development of any new symptoms overnight. Does not appear in acute distress. Objective Data Objective Data Vital Signs: Vital Signs Temp Pulse Resp BP Pulse Ox 98.1 F 84 20 H 119/75 98 02/03/22 08:00 02/03/22 12:39 02/03/22 11:00 02/03/22 11:00 02/03/22 11:00 Oxygen Delivery Method Room Air Weight: 235 lb 10.786 oz Body Mass Index (BMI) 28.7 Intake & Output: Intake and Output for Last 24 Hours 02/01/22 02/02/22 02/03/22 23:59 23:59 23:59 Intake Total 300.67 / 300.67 2437.16 / 2437.16 Output Total 450 / 450 Balance 300.67 / 300.67 1986.16 / 16 Lab / Micro Data Result Diagrams: 02/03/22 06:36 02/03/22 06:36 Labs: Laboratory Results - last 24 hr 02/02/22 15:35: WBC 2.1 L, RBC 3.77 L, Hgb 11.2 L, Hct 33.3 L, MCV 88.3, MCH 29.7, MCHC 33.6, RDW Std Deviation 52.1 H, RDW Coeff of Benjamin 16.4 H, Plt Count 110 L, MPV 10.7, Neut % (Auto) Not Reportable, Absolute Neuts (auto) 0.9 L, Absolute Lymphs (auto) 0.60 L, Total Counted 100, Neutrophils % (Manual) 37 L, Band Neutrophils % 4, Lymphocytes % (Manual) 29, Monocytes % (Manual) 30 H, Diff Path Review May , Platelet Estimate ADEQUATE, RBC Morphology NORM C+C 02/02/22 15:35: Sodium 133 L, Potassium 3.6, Chloride 99, Carbon Dioxide 26.0, Anion Gap 8, BUN 33 H, Creatinine 1.60 H, Estim Creat Clear Calc 62.54, Est GFR (MDRD) Af Amer 58 L, Est GFR (MDRD) Non-Af 48 L, BUN/Creatinine Ratio 20.6 H, Glucose 107 H, Calcium 9.7, Total Bilirubin 0.50, AST 21, ALT 24, Alkaline Phosphatase 73, Troponin I High Sens 14, Total Protein 6.3 L, Albumin 2.4 L, Globulin 3.9, Albumin/Globulin Ratio 0.6 L, Lipase 146 02/02/22 16:50: Urine Color Yellow, Urine Clarity Sl. Cloudy, Urine pH 6.0, Ur Specific [place]e 1.020, Urine Protein 30 H, Urine Glucose (UA) Normal, Urine Ketones 5 H, Urine Occult Blood Negative, Urine Nitrite Negative, Urine Omar irubin 3 H, Urine Urobilinogen 4 H, Ur Leukocyte Esterase 25 H, Urine RBC 0 SEEN, Urine WBC 0-5 SEEN, Ur Squamous Epith Cells 0-5 SEEN, Calcium Oxalate Crystal RARE, Amorphous Sediment 1+ PHOS, Urine Bacteria RARE, Urine Mucus 0 SEEN 02/02/22 18:29: Troponin I High Sens 16 02/02/22 21:29: Troponin I High Sens 13 02/03/22 06:36: WBC 2.3 L, RBC 3.61 L, Hgb 10.6 L, Hct 32.0 L, MCV 88.6, MCH 29.4, MCHC 33.1, RDW Std Deviation 53.5 H, RDW Coeff of Benjamin 16.5 H, Plt Count 118 L, MPV 11.0, Immature Gran % (Auto) 2.200 H, Neut % (Auto) 22.7 L, Lymph % (Auto) 46.2 H, Brooke % (Auto) 27.1 H, Eos % (Auto) 0.9, Baso % (Auto) 0.9, Absolute Neuts (auto) 0.5 L, Absolute Lymphs (auto) 1.04, Nucleated RBC % 0 02/03/22 06:36: Sodium 131 L, Potassium 3.6, Chloride 100, Carbon Dioxide 23.0, Anion Gap 8, BUN 34 H, Creatinine 1.71 H, Estim Creat Clear Calc 58.52, Est GFR (MDRD) Af Amer 53 L, Est GFR (MDRD) Non-Af 44 L, BUN/Creatinine Ratio 19.9, Glucose 117 H, Calcium 8.9, Total Bilirubin 0.40, AST 22, ALT 24, Alkaline Phosphatase 73, Total Protein 6.1 L, Albumin 2.3 L, Globulin 3.8, Albu min/Globulin Ratio 0.6 L Radiography Diagnostic Testing: Radiology Impression Chest X-Ray 02/02/22 15:48 IMPRESSION: No active disease. Electronically Signed: Pb Troncoso MD at 16:02 EST , KUB X-Ray 02/02/22 19:40 IMPRESSION: Gas-filled loops of large and small bowel which may represent enteritis or an ileus. There is no obstruction. at 0028 Reported and signed by: Narciso Mcdonald MD Electronically Signed: Narciso Mcdonald MD at 0:27 EST , Rhythm Strip Rhythm Strip: A-fib Rate: 132 Ectopy: None Physical Exam Const alert, oriented x3 and no apparent distress HEENT head/scalp atraumatic and moist oral mucous membranes Head and Scalp: normocephalic Eyes PERRL and conjunctivae normal Neck no lymphadenopathy, supple and no JVD Resp normal respiratory effort, no retractions and no use of accessory muscles Cardio regular rate, regular rhythm and no JVD GI normal to inspection, nondistended, normoactive bowel sounds Extremity normal to inspection Skin no rashes or lesions noted, no wounds and no jaundice Neuro CN's II-XII intact bilaterally Psych affect normal Assessment & Plan Assessment/Plan (1) Atrial fibrillation with rapid ventricular response: (2) Nausea & vomiting: QUALIFIERS: Vomiting type: unspecified Qualified Code(s): R11.2 - Nausea with vomiting, unspecified (3) History of lung cancer: PLAN: Day 1 Discharge planning: Current plan is for patient to discharge home when medically ready. 1) atrial fibrillation with RVR Rate is currently controlled. Episode of RVR likely due to fact that patient has not been taking his home A. fib regimen due to several weeks of nausea and vomiting. Will titrate diltiazem infusion down to 2.5 mg and discontinue this evening, initiate diltiazem 120 mg p.o. daily, continue amiodarone and metoprolol in a.m. Continue anticoagulation on Lovenox, will reinitiate Xarelto on discharge. 2) intractable nausea and vomiting Etiology is chemotherapy. KUB x-ray demonstrates gas-filled bowel loops throughout large and small bowel which may represent enteritis or ileus, no evidence of obstruction seen. Continue antiemetics with Zofran and Compazine. Continue with renal diet. 3) diarrhea Unclear etiology, C. difficile panel negative. As needed Imodium ordered. 4) stage IIIb small cell lung cancer Patient is supposed to have an appointment with Dr. Johnson on 02/04/22. DVT prophylaxis - therapeutic Lovenox Patient seen by Cosmo Mane PA-C, under the supervision of Dr. gAuilar. Documented by User: Dr. Harsha Aguilar MD 02/03/22 17:26 Subjective Subjective Follow-up for A. fib with RVR, acute on chronic diastolic heart failure and history of small cell cancer. Patient on Cardizem drip, heart rate 90s to 100. Cardizem drip being tapered off. Started on Cardizem CD 120 mg twice daily Objective Data Lab / Micro Data Result Diagrams: 02/03/22 06:36 02/03/22 06:36 Physical Exam Narrative General: Alert, Oriented x3, Cooperative HEENT: Atraumatic, PERRLA, EOMI, Normocephalic Oral: No Gingival or Mucosal Lesions/ Ulcerations Neck: Supple, No JVD, Negative Carotid Bruits Lungs: Air entry diminished in bilateral lung bases. No crepitation/rhonchi Cardiovascular: A. fib, normal S1, Normal S2, No murmurs Abdomen: Bowel Sounds Present, Soft, Non Tender, Non-Distended : No renal angle tenderness. No suprapubic tenderness. Extremities: Mild ankle edema edema, Capillary Refill Less than 3 Seconds Skin: No rashes, No breakdown Musculoskeletal: No Tenderness to Palpation of Joints or Extremities Neurological: Cranial nerves II-XII grossly intact, DTR 2+/4 and Symmetrical, Neuro grossly intact Psych/Mental Status: Normal Affect, Appropriate Assessment & Plan Assessment/Plan (1) Atrial fibrillation with rapid ventricular response: PLAN: This patient was seen in conjunction with RAMONE Polanco. I have independently interviewed and examined the patient and reviewed pertinent history, examination findings, laboratory and plan of management. I have reviewed the note and agree with the documented findings with the few additional points. In brief, patient is admitted for A. fib with RVR. Patient on Cardizem drip being tapered off and switched to Cardizem CD 120 mg p.o. twice daily. Patient on metoprolol and amiodarone home dosages resumed. On enoxaparin therapeutic dose for anticoagulation. Resume Xarelto when nausea is well controlled. Vomiting has resolved but patient still has mild nausea. Patient has small cell lung cancer and chemotherapy. KUB shows gas-filled loops throughout large and small bowel. Symptomatic management. Patient also had diarrhea C. difficile negative. Stage IIIb small cell lung cancer. I have discussed my assessment with RAMONE Polanco and orders have been reviewed. Total time of the visit includes total time spent in counseling or coordination of care, (more than 50% of the total time, spent in obtaining medical inf ormation from nurses and other ancillary care providers,explaining to the patient about labs, imaging, diagnosis and management), discussion with learning and development consultant, review of labs and imaging is 30 minutes; I spent 18 minutes, more than half time and RAMONE spent 12 minutes Charges/Coding Visit Charges Inpatient E&M: 76248 Subs Hosp L2
[2022-02-03] MEDS: dilTIAZem CD 120 MG Capsule PO ×2 (15:42→22:07)
[2022-02-03] MEDS: Acetaminophen 500 MG Tablet PO (20:14)
[2022-02-03] MEDS: Ipratropium 0.5 MG/2.5 ML SOLUTION INHALATION (20:19)
[2022-02-03] MEDS: Metoprolol Tartrate 50 MG Tablet PO (22:07)
[2022-02-04] VITALS (8 sets, daily range): BP systolic 109–122; BP diastolic 65–81; PULSE 56–77; RESP 13–19; TEMP 36.6–36.7; O2SAT 95–96
[2022-02-04] MEDS: Acetaminophen 500 MG Tablet PO (02:12)
[2022-02-04 06:43] LABS: Hematocrit 28.5 % (40-54); Hemoglobin 9.4 g/dL (13.0-16.5); Mean Corpuscular Hgb 28.6 pg (27.0-32.0); Mean Corpuscular Volume 86.6 fL (80-94); Mean Platelet Vol. 10.6 fl (6.2-12.0); POSITIVE COUNT YES; POSITIVE DIFFERENTIAL YES; POSITIVE MORPHOLOGY YES; Platelet Count 122 K/mm3 (150-450); RBC Distribution Width CV 16.8 % (11.6-14.6); RBC Distribution Width SD 52.4 fl (35.1-43.9); Red Blood Count 3.29 M/mm3 (4.6-6.2); White Blood Count 2.5 K/mm3 (4.4-11.0)
[2022-02-04 06:54] LABS: Differential Indicated MANUAL DIFF
[2022-02-04 07:02] LABS: Anisocytosis 1+; Platelet Estimate SLT DEC (ADEQ); Red Cell Morphology NORM C+C NORMAL (NORM C&C)
[2022-02-04 07:07] LABS: Absolute Neutrophil Count 0.7 X10^3/uL (2.0-7.7)
[2022-02-04 07:08] LABS: Absolute Lymphocyte Count 1.16 X10^3/uL (0.83-4.51); Atypical Lymphocyte 2+ %; Lymphocyte 46 % (19-41); Monocyte 16 % (0-10); Myelocyte 9 % (0-0); Neutrophil-Band 7 % (0-5); Neutrophil-Segmented 21 % (47-70); Promyelocyte 1 % (0-0); Total Cells Counted 100 (MANUAL DIFF)
[2022-02-04 07:15] LABS: Anion Gap 6 (5-15); BUN 30 mg/dL (7-18); BUN/Creat Ratio 18.4 RATIO (10-20); Calcium,Total 8.5 mg/dL (8.5-10.1); Chloride 101 mmol/L (98-107); Creatinine, Serum 1.63 mg/dL (0.70-1.30); EST Glomerular Filtration Rate 47 mL/min (>60); Est Glom Filt Rate - Afr Amer 56 mL/min (>60); Estimated Creatinine Clearance 61.39 ml/min; Glucose 94 mg/dL (74-106); Potassium 3.5 mmol/L (3.5-5.1); Sodium Level 132 mmol/L (136-145)
[2022-02-04] MEDS: Ipratropium 0.5 MG/2.5 ML SOLUTION INHALATION (07:42)
[2022-02-04] MEDS: Amiodarone 200 MG Tablet PO (08:09)
[2022-02-04] MEDS: FLUoxetine 20 MG Capsule 60 MG PO (08:09)
[2022-02-04] MEDS: Pantoprazole Sodium 40 MG Tablet PO (08:09)
[2022-02-04] MEDS: Metoprolol Tartrate 50 MG Tablet PO (08:10)
[2022-02-04] MEDS: Enoxaparin 120 MG/0.8 ML Syringe 110 MG SC (08:13)
[2022-02-04] MEDS: dilTIAZem CD 120 MG Capsule PO (08:20)
--- NOTE | 2022-02-04 09:57 | CASEMGMT ---
Addendum entered by Letha Quevedo 02/04/22 10:16: SW spoke with patient and his 3 choices are as follows: [facility], [facility], and [facility]). SW let patient know SW will work on referrals and let him know more when SW knows more. CLAIRE spoke with Lupis, Discharge Poultry Veterinarian and she will send referrals to all 3 facilities. Await responses. Letha MAYER Original Note: SW was informed by physician that patient is requesting senior living placement. SW met with patient. Introduced self and role at [facility]. Patient confirmed he needs to go to a senior living. SW provided a list of SNF providers including quality and resource use data and consistent with the patient?s preferred geographic region, medical needs, and insurance network. CLAIRE let patient know the facilities that are highlighted in pink are the ones that take his insurance so those are his options. SW told patient to pick 3 and SW will work on checking availability at facilities. SW will check back with patient to obtain his options. Letha MAYER
[2022-02-04 10:27] LABS: Pathologist Review Reviewed
--- NOTE | 2022-02-04 10:59 | PCM.PN.HOSP ---
Documented by User: Cosmo PACK 02/04/22 11:07 Subjective Subjective Patient is a 56-year-old male comfortably resting in bed, alert and orient x3. nausea Patient reports t, vomiting and diarrheahat his proved from admission have improved, but is concerned about ongoing weakness and inability to ambulate at home. Expresses desire to want to go to SNF. Objective Data Objective Data Vital Signs: Vital Signs Temp Pulse Resp BP Pulse Ox 98.1 F 68 18 122/81 H 95 02/04/22 08:00 02/04/22 08:10 02/04/22 08:00 02/04/22 08:00 02/04/22 08:00 Oxygen Delivery Method Room Air Weight: 235 lb 10.786 oz Body Mass Index (BMI) 28.7 Intake & Output: Intake and Output for Last 24 Hours 02/02/22 02/03/22 02/04/22 23:59 23:59 23:59 Intake Total 300.67 / 300.67 3653.12 / 3873.12 540 / 540 Output Total 700 / 950 370 / 370 Balance 300.67 / 300.67 2953.12 / 2923.12 170 / 170 Medical Nutrition Assessment Dietitian: Malnutrition Criteria Met Start: 02/03/22 15:20 Freq: Status: Active Protocol: Document 02/03/22 15:20 RMA (Rec: 02/03/22 15:20 RMA [id number]) Nutrition Malnutrition Evidence of Malnutrition Exists Yes Malnutrition (severe): Chronic Evidenced By Suboptimal Energy Intake ( Severe),Weight Loss (Severe) Clinical Problem Chronic Disease or Condition Related Malnutrition Etiology Severe protein-calorie malnutrition in the context of chronic disease related to increased energy expenditure and inadequate oral intake Signs/Symptoms as evidenced by ~22% wt loss x 8-9 months and PO meeting less than 50% estimated nutrition needs Status Active Problem Recommendation Dietitian Recommendations/Changes Continue liberalized regular diet for now and monitor need to restrict carbohydrates and sodium as intake improves at meals. Will offer 240 ml burnette ensure clear BID w/ breakfast and dinner for tolerance. Continue 120 ml ensure enlive 4 times per day w/ medpass as tolerated. May need to consider nutrition support if weight and intake continue to decline. Lab / Micro Data Result Diagrams: 02/04/22 06:27 02/04/22 06:27 Labs: Laboratory Results - last 24 hr 02/02/22 15:35: Diff Path Review Reviewed 02/04/22 06:27: WBC 2.5 L, RBC 3.29 L, Hgb 9.4 L, Hct 28.5 L, MCV 86.6, MCH 28.6, MCHC 33.0, RDW Std Deviation 52.4 H, RDW Coeff of Benjamin 16.8 H, Plt Count 122 L, MPV 10.6, Neut % (Auto) Not Reportable, Absolute Neuts (auto) 0.7 L, Absolute Lymphs (auto) 1.16, Total Counted 100, Neutrophils % (Manual) 21 L, Band Neutrophils % 7 H, Lymphocytes % (Manual) 46 H, Monocytes % (Manual) 16 H, Myelocytes % 9 H, Promyelocytes % 1 H, Diff Path Review May foll, Atypical Lymphocytes 2+, Platelet Estimate SLT DEC, RBC Morphology NORM C+C, Anisocytosis 1+ 02/04/22 06:27: Sodium 132 L, Potassium 3.5, Chloride 101, Carbon Dioxide 25.0, Anion Gap 6, BUN 30 H, Creatinine 1.63 H, Estim Creat Clear Calc 61.39, Est GFR (MDRD) Af Amer 56 L, Est GFR (MDRD) Non-Af 47 L, BUN/Creatinine Ratio 18.4, Glucose 94, Calcium 8.5 Rhythm Strip Rhythm Strip: A-fib Rate: 132 Ectopy: None Physical Exam Const alert, oriented x3 and no apparent distress HEENT head/scalp atraumatic and moist oral mucous membranes Head and Scalp: normocephalic Eyes PERRL, EOMs intact bilaterally and conjunctivae normal Neck no lymphadenopathy and no JVD Resp normal respiratory effort, no retractions and no use of accessory muscles Cardio regular rate, regular rhythm and no JVD GI normal to inspection, nondistended, normoactive bowel sounds Extremity Extremity Narrative: Chronic brownish discoloration about lower extremities bilaterally. Skin no rashes or lesions noted Neuro CN's II-XII intact bilaterally Psych affect normal Assessment & Plan Assessment/Plan (1) Atrial fibrillation with rapid ventricular response: (2) Nausea & vomiting: QUALIFIERS: Vomiting type: unspecified Qualified Code(s): R11.2 - Nausea with vomiting, unspecified (3) History of lung cancer: PLAN: Day 2 Discharge planning: Discharge to SNF, /SW following. 1) atrial fibrillation with RVR Rate is currently controlled. Diltiazem infusion and oral dose discontinued, metoprolol increased to 100 mg p.o. twice daily, home amiodarone continued. Continue anticoagulation on Lovenox, reinitiate Xarelto on discharge. 2) intractable nausea and vomiting Etiology is chemotherapy. KUB x-ray demonstrates gas-filled bowel loops throughout large and small bowel which may represent enteritis or ileus, no evidence of obstruction seen. Continue antiemetics with Zofran and Compazine. Continue with renal diet. 3) diarrhea Unclear etiology, C. difficile panel negative. As needed Imodium ordered. 4) stage IIIb small cell lung cancer Patient is supposed to have an appointment with Dr. Johnson on 02/04/22. 5) debility/adult failure to thrive Patient reports ongoing weakness at home and difficulty completing ADLs. PT/OT eval recommended SNF placement for ongoing therapy. Case management consulted. DVT prophylaxis - therapeutic Lovenox Patient seen by Cosmo Mane PA-C, under the supervision of Dr. Aguilar. Documented by User: Dr. Harsha Aguilar MD 02/04/22 16:09 Objective Data Lab / Micro Data Result Diagrams: 02/04/22 06:27 02/04/22 06:27 Physical Exam Narrative Please see discharge summary which includes progress note of the same date and summary of Hospital care.
--- NOTE | 2022-02-04 11:25 | CASEMGMT ---
Discharge Shelter Supervisor Called [facility] and no beds available. Called [facility] and faxed referral over. Called [facility] and faxed referral over. Will Follow Up. Lupis Fischer Discharge Shelter Supervisor
[2022-02-04] MEDS: 0.9% Saline Lock 10 ML Syringe IV ×2 (13:13→16:27)
[2022-02-04] MEDS: Morphine 2 MG/ML Syringe IV (13:13)
--- NOTE | 2022-02-04 13:24 | CASEMGMT ---
Discharge Health Care / Medical Job Titles Called Mellissa at [facility]. Left a VM regarding the referral that was faxed this morning. Will continue to follow up. Lupis Fischer Discharge Health Care / Medical Job Titles
--- NOTE | 2022-02-04 14:20 | PCM.TXEXTCAR ---
Diet 02/02/22 18:02 Diet: Regular - General Food consistency:: Regular Liquid Consistency:: Regular/Thin Type of Dietary Supplement:: Ensure Clear Diet Comments: 240 ml burnette ensure clear BID w/ breakfast and dinner Routine Orders/Code Status Suppository Type: Dulcolax 10mg Suppository Frequency: Daily PRN Therapies Weight Bearing: Weight bearing as tolerated Extremity Affected:: Bilateral Lower Physical Therapy: Eval and Treat Occupational Therapy: Eval and Treat Speech Therapy: Eval and Treat Problem/Diagnosis (1) Atrial fibrillation with rapid ventricular response: Status: Acute (2) Nausea & vomiting: Status: Acute (3) History of lung cancer: Status: Acute Allergies/Procedures Done in Hospital Allergies atezolizumab Adverse Reaction (Severe, Verified 02/02/22 14:29) Pneumonia pioglitazone HCl [From [employer]] Adverse Reaction (Severe, Verified 02/02/22 14:29) Other WEIGHT GAIN Type of Care/Length of Stay Estimated LOS: Convalescent Care Less Than 30 days Type of Care Needed: Skilled Rehab Potential: Good Prognosis: Fair Additional Orders/Day of Discharge Day of Discharge: 02/04/22 Dietary and Speech Recommendations Dietitian Recommendations/Changes: Continue liberalized regular diet for now and monitor need to restrict carbohydrates and sodium as intake improves at meals. Will offer 240 ml burnette ensure clear BID w/ breakfast and dinner for tolerance. Continue 120 ml ensure enlive 4 times per day w/ medpass as tolerated. May need to consider nutrition support if weight and intake continue to decline. Discharge Plan Admission Admit Date/Time: 02/02/22 17:19 Attending Provider: Harsha Aguilar Primary Care Provider: Lizzeth Velasquez Discharge Orders/Prescriptions Prescriptions: Continued (DME) Disability Placard See Rx Instructions .Route .MEDSUPPLY Qty: 1 RF: 0 acetaminophen [Tylenol Extra Strength] 500 mg tablet 500 mg PO BID PRN (Reason: Pain) RF: 0 prochlorperazine maleate 10 mg tablet 10 mg PO Q6H PRN (Reason: nausea and vomiting) Qty: 30 RF: 2 cholecalciferol (vitamin D3) 1,250 mcg (50,000 unit) capsule 1,250 mcg PO TH RF: 0 polyethylene glycol 3350 [Miralax] 17 gram Powder In Packet 17 g PO DAILY RF: 0 amiodarone 200 mg tablet 200 mg PO DAILY RF: 0 metoprolol tartrate 100 mg tablet 100 mg PO BID Qty: 0 RF: 0 rivaroxaban 20 mg tablet 20 mg PO QDAY Qty: 30 RF: 12 loratadine [Claritin] 10 mg tablet 10 mg PO DAILY PRN (Reason: nasal allergy) Qty: 0 RF: 0 albuterol sulfate 90 mcg/actuation aerosol powdr breath activated 2 inh INHALATION Q4H PRN PRN (Reason: Sob &/Or Wheezing) Qty: 1 RF: 6 pravastatin 40 mg tablet 40 mg PO DINNER Qty: 90 RF: 3 pantoprazole [Protonix] 40 mg tablet,delayed release (DR/EC) 40 mg PO DAILY Qty: 30 RF: 3 fluoxetine 20 mg capsule 60 mg PO DAILY Qty: 270 RF: 1 fluticasone propionate 50 mcg/actuation spray,suspension 2 spray NASAL DAILY PRN PRN (Reason: Nasal Congestion) Qty: 16 RF: 3 doxazosin 2 mg tablet 2 mg PO DAILY Qty: 90 RF: 3 tiotropium bromide 2.5 mcg/actuation mist 2 puff INHALATION DAILY Qty: 4 RF: 11 budesonide-formoterol [Symbicort] 160-4.5 mcg/actuation HFA aerosol inhaler 2 puff INHALATION BID Qty: 10.2 RF: 5 Changed potassium chloride 20 mEq tablet extended release 20 meq PO BID 90 Days Qty: 360 RF: 1 Discontinued metoclopramide HCl [Reglan] 5 mg tablet 5 mg PO Q6H PRN (Reason: nausea and vomiting) Qty: 12 RF: 0 Referrals / Follow Up: Regan Schaefer MD [STAFF PHYSICIAN] - Within 1 Month (for A fib) Lizzeth Velasquez MD [Primary Care Provider] - Within 2 Weeks Cristiana Johnson MD [STAFF PHYSICIAN] - Within 1 Month (Lung cancer) Disposition Disposition (needs filled in before D/C Order can be placed): Home, Self Care
--- NOTE | 2022-02-04 14:22 | CASEMGMT ---
Discharge Latex Caster Mellissa called from [facility]. [facility]. Mellissa said [employer] is waiving pre- cert still. Patient can come today. Call [facility] with a transport time. CLAIRE Monae is notified. Lupis Fischer Discharge Latex Caster
--- NOTE | 2022-02-04 14:46 | CASEMGMT ---
CLAIRE notified physician that patient can be discharged to the intermediate today. CLAIRE completed 7000 on [facility]. CLAIRE will set up transport once COVID test done. CLAIRE let patient know that [facility] did not have any availability. CLAIRE let patient know [facility] can take him and physician will send him today. CLAIRE let patient know transportation will be arranged. He declined the need for to call his family. Letha Quevedo RESISTANCE BRAZER MORENO
--- NOTE | 2022-02-04 15:42 | CASEMGMT ---
CLAIRE arranged for patient to get picked up at 5p via [facility] van by [facility]. SW faxed orders, negative COVID, and roller picker time. CLAIRE also called Mellissa with [facility] and let her know about roller picker time. CLAIRE notified RN and secretary to board of commissioners. Patient was sleeping. Plan: d/c to [facility] under intermediate level of care on a 7000. [facility] will transport via wc van. Letha MAYER
--- NOTE | 2022-02-04 15:46 | PCM.DC.SUM ---
Documented by User: Cosmo PACK 02/04/22 15:54 Providers Date of Admission: 02/02/22 Date of Discharge: 02/04/22 Primary Care Physician: Dr. Lizzeth Velasquez MD Reason For Visit: AFIB RVR Diagnosis Discharge Diagnosis (1) Atrial fibrillation with rapid ventricular response: Status: Acute Code(s): I48.91 - Unspecified atrial fibrillation (2) Nausea & vomiting: Status: Acute Code(s): R11.2 - Nausea with vomiting, unspecified Qualifiers: Vomiting type: unspecified Qualified Code(s): R11.2 - Nausea with vomiting, unspecified (3) History of lung cancer: Status: Acute Code(s): Z85.118 - Personal history of other malignant neoplasm of bronchus and lung Medications at Discharge Home Medications albuterol sulfate 90 mcg/actuation breath activated powder inhaler 2 inh INHALATION Q4H PRN PRN #1 each 01/21/21 pravastatin 40 mg tablet 40 mg PO DINNER #90 tablet 05/02/21 cholecalciferol (vitamin D3) 1,250 mcg PO TH 06/05/21 Disability Placard #1 ea 06/20/21 pantoprazole 40 mg tablet,delayed release 40 mg PO DAILY #30 tab 07/15/21 fluoxetine 20 mg capsule 60 mg PO DAILY #270 cap 07/30/21 fluticasone propionate 50 mcg/actuation nasal spray,suspension 2 spray NASAL DAILY PRN PRN #16 g 09/18/21 acetaminophen 500 mg tablet 500 mg PO BID PRN tab 11/14/21 doxazosin 2 mg tablet 2 mg PO DAILY #90 tablet 12/13/21 Symbicort 160 mcg-4.5 mcg/actuation HFA aerosol inhaler 2 puff INHALATION BID #10.2 g NS 01/16/22 tiotropium bromide 2.5 mcg/actuation mist for inhalation 2 puff INHALATION DAILY #4 gm 01/16/22 prochlorperazine maleate 10 mg tablet 10 mg PO Q6H PRN #30 tab 01/21/22 amiodarone 200 mg PO DAILY 02/02/22 polyethylene glycol 3350 [Miralax] 17 g PO DAILY 02/02/22 loratadine [Claritin] 10 mg PO DAILY PRN #0 tab 02/04/22 metoprolol tartrate 100 mg PO BID #0 tab 02/04/22 potassium chloride 20 meq PO BID 90 Days #360 tab 02/04/22 rivaroxaban 20 mg PO QDAY #30 tablet 02/04/22 Hospital Course Summary of Care Provided Minutes Spent on Discharge: 20 Hospital Course: Patient is a 56-year-old male who was admitted to [facility] on 02/02/2022 for evaluation and management of intractable nausea and vomiting secondary to chemotherapy for small cell lung cancer. Course and management as below. 1) atrial fibrillation with RVR Rate is currently controlled. Diltiazem infusion and oral dose discontinued, metoprolol increased to 100 mg p.o. twice daily, home amiodarone continued. Continue Xarelto on discharge. 2) intractable nausea and vomiting Etiology is chemotherapy. KUB x-ray demonstrates gas-filled bowel loops throughout large and small bowel which may represent enteritis or ileus, no evidence of obstruction seen. 3) diarrhea Resolved, unclear etiology, C. difficile panel negative. 4) stage IIIb small cell lung cancer Patient is supposed to have an appointment with Dr. Johnson on 02/04/22. 5) debility/adult failure to thrive Patient reports ongoing weakness at home and difficulty completing ADLs. To discharge to SNF for ongoing skilled therapy and rehab. Patient seen by Cosmo Mane PA-C, under the supervision of Dr. Aguilar. Physical Exam Narrative Patient is a 56-year-old male comfortably resting in a chair, alert and orient x3. Patient reports that his nausea, vomiting and diarrhea have greatly improved from yesterday. Denies development of any new symptoms overnight. Does not appear in acute distress. Const alert, oriented x3 and no apparent distress HEENT normocephalic, head/scalp atraumatic and hearing grossly normal bilaterally Eyes PERRL and conjunctivae normal Neck no lymphadenopathy, supple and no JVD Resp normal respiratory effort, no retractions and no use of accessory muscles Cardio regular rate, regular rhythm and no JVD GI normal to inspection, nondistended, normoactive bowel sounds Extremity Extremity Narrative: Chronic brown discoloration about the lower extremities bilaterally. Skin Skin Narrative: See extremity. Neuro CN's II-XII intact bilaterally Psych affect normal Medical Records Data Medical Nutrition Assessment Dietitian: Malnutrition Criteria Met Start: 02/03/22 15:20 Freq: Status: Active Protocol: Document 02/03/22 15:20 RMA (Rec: 02/03/22 15:20 RMA [id number]) Nutrition Malnutrition Evidence of Malnutrition Exists Yes Malnutrition (severe): Chronic Evidenced By Suboptimal Energy Intake ( Severe),Weight Loss (Severe) Clinical Problem Chronic Disease or Condition Related Malnutrition Etiology Severe protein-calorie malnutrition in the context of chronic disease related to increased energy expenditure and inadequate oral intake Signs/Symptoms as evidenced by ~22% wt loss x 8-9 months and PO meeting less than 50% estimated nutrition needs Status Active Problem Recommendation Dietitian Recommendations/Changes Continue liberalized regular diet for now and monitor need to restrict carbohydrates and sodium as intake improves at meals. Will offer 240 ml burnette ensure clear BID w/ breakfast and dinner for tolerance. Continue 120 ml ensure enlive 4 times per day w/ medpass as tolerated. May need to consider nutrition support if weight and intake continue to decline. Weight / BMI Weight Weight: 235 lb 10.786 oz Body Mass Index (BMI) 28.7 ABG / Lab / Microbiology Data Result Diagrams: 02/04/22 06:27 02/04/22 06:27 Laboratory: Laboratory Results - last 24 hr 02/02/22 15:35: Diff Path Review Reviewed 02/04/22 06:27: WBC 2.5 L, RBC 3.29 L, Hgb 9.4 L, Hct 28.5 L, MCV 86.6, MCH 28.6, MCHC 33.0, RDW Std Deviation 52.4 H, RDW Coeff of Benjamin 16.8 H, Plt Count 122 L, MPV 10.6, Neut % (Auto) Not Reportable, Absolute Neuts (auto) 0.7 L, Absolute Lymphs (auto) 1.16, Total Counted 100, Neutrophils % (Manual) 21 L, Band Neutrophils % 7 H, Lymphocytes % (Manual) 46 H, Monocytes % (Manual) 16 H, Myelocytes % 9 H, Promyelocytes % 1 H, Diff Path Review May foll, Atypical Lymphocytes 2+, Platelet Estimate SLT DEC, RBC Morphology NORM C+C, Anisocytosis 1+ 02/04/22 06:27: Sodium 132 L, Potassium 3.5, Chloride 101, Carbon Dioxide 25.0, Anion Gap 6, BUN 30 H, Creatinine 1.63 H, Estim Creat Clear Calc 61.39, Est GFR (MDRD) Af Amer 56 L, Est GFR (MDRD) Non-Af 47 L, BUN/Creatinine Ratio 18.4, Glucose 94, Calcium 8.5 Microbiology: Microbiology 02/04/22 14:55 Nasal Secretion SARS-CoV-2 Antigen (Rapid) - Final Meaningful Use Info Meaningful Use Diagnoses (Choose all that apply): None applicable Discharge Plan Admission Admit Date/Time: 02/02/22 17:19 Attending Provider: Harsha Aguilar Primary Care Provider: Lizzeth Velasquez Discharge Orders/Prescriptions Prescriptions: Continued (DME) Disability Placard See Rx Instructions .Route .MEDSUPPLY Qty: 1 RF: 0 acetaminophen [Tylenol Extra Strength] 500 mg tablet 500 mg PO BID PRN (Reason: Pain) RF: 0 prochlorperazine maleate 10 mg tablet 10 mg PO Q6H PRN (Reason: nausea and vomiting) Qty: 30 RF: 2 cholecalciferol (vitamin D3) 1,250 mcg (50,000 unit) capsule 1,250 mcg PO TH RF: 0 polyethylene glycol 3350 [Miralax] 17 gram Powder In Packet 17 g PO DAILY RF: 0 amiodarone 200 mg tablet 200 mg PO DAILY RF: 0 metoprolol tartrate 100 mg tablet 100 mg PO BID Qty: 0 RF: 0 rivaroxaban 20 mg tablet 20 mg PO QDAY Qty: 30 RF: 12 loratadine [Claritin] 10 mg tablet 10 mg PO DAILY PRN (Reason: nasal allergy) Qty: 0 RF: 0 albuterol sulfate 90 mcg/actuation aerosol powdr breath activated 2 inh INHALATION Q4H PRN PRN (Reason: Sob &/Or Wheezing) Qty: 1 RF: 6 pravastatin 40 mg tablet 40 mg PO DINNER Qty: 90 RF: 3 pantoprazole [Protonix] 40 mg tablet,delayed release (DR/EC) 40 mg PO DAILY Qty: 30 RF: 3 fluoxetine 20 mg capsule 60 mg PO DAILY Qty: 270 RF: 1 fluticasone propionate 50 mcg/actuation spray,suspension 2 spray NASAL DAILY PRN PRN (Reason: Nasal Congestion) Qty: 16 RF: 3 doxazosin 2 mg tablet 2 mg PO DAILY Qty: 90 RF: 3 tiotropium bromide 2.5 mcg/actuation mist 2 puff INHALATION DAILY Qty: 4 RF: 11 budesonide-formoterol [Symbicort] 160-4.5 mcg/actuation HFA aerosol inhaler 2 puff INHALATION BID Qty: 10.2 RF: 5 Changed potassium chloride 20 mEq tablet extended release 20 meq PO BID 90 Days Qty: 360 RF: 1 Discontinued metoclopramide HCl [Reglan] 5 mg tablet 5 mg PO Q6H PRN (Reason: nausea and vomiting) Qty: 12 RF: 0 Referrals / Follow Up: Regan Schaefer MD [STAFF PHYSICIAN] - Within 1 Month (for A fib) Lizzeth Velasquez MD [Primary Care Provider] - Within 2 Weeks Cristiana Johnson MD [STAFF PHYSICIAN] - Within 1 Month (Lung cancer) Disposition Disposition (needs filled in before D/C Order can be placed): Home, Self Care Documented by User: Dr. Harsha Aguilar MD 02/04/22 16:08 Providers Date of Admission: 02/02/22 Reason For Visit: AFIB RVR Medications at Discharge Home Medications albuterol sulfate 90 mcg/actuation breath activated powder inhaler 2 inh INHALATION Q4H PRN PRN #1 each 01/21/21 pravastatin 40 mg tablet 40 mg PO DINNER #90 tablet 05/02/21 cholecalciferol (vitamin D3) 1,250 mcg PO TH 06/05/21 Disability Placard #1 ea 06/20/21 pantoprazole 40 mg tablet,delayed release 40 mg PO DAILY #30 tab 07/15/21 fluoxetine 20 mg capsule 60 mg PO DAILY #270 cap 07/30/21 fluticasone propionate 50 mcg/actuation nasal spray,suspension 2 spray NASAL DAILY PRN PRN #16 g 09/18/21 acetaminophen 500 mg tablet 500 mg PO BID PRN tab 11/14/21 doxazosin 2 mg tablet 2 mg PO DAILY #90 tablet 12/13/21 Symbicort 160 mcg-4.5 mcg/actuation HFA aerosol inhaler 2 puff INHALATION BID #10.2 g NS 01/16/22 tiotropium bromide 2.5 mcg/actuation mist for inhalation 2 puff INHALATION DAILY #4 gm 01/16/22 prochlorperazine maleate 10 mg tablet 10 mg PO Q6H PRN #30 tab 01/21/22 amiodarone 200 mg PO DAILY 02/02/22 polyethylene glycol 3350 [Miralax] 17 g PO DAILY 02/02/22 loratadine [Claritin] 10 mg PO DAILY PRN #0 tab 02/04/22 metoprolol tartrate 100 mg PO BID #0 tab 02/04/22 potassium chloride 20 meq PO BID 90 Days #360 tab 02/04/22 rivaroxaban 20 mg PO QDAY #30 tablet 02/04/22 Hospital Course Summary of Care Provided Hospital Course: This patient was seen in conjunction with RAMONE Polanco. I have independently interviewed and examined the patient and reviewed pertinent history, examination findings, laboratory and plan of management. I have reviewed the note and agree with the documented findings with the few additional points. In brief, patient is admitted for A. fib with RVR. Patient on Cardizem drip being tapered off and switched to Cardizem CD 120 mg p.o. twice daily. Patient on metoprolol and amiodarone home dosages resumed. Later on, metoprolol dose increased 200 mg twice daily and Cardizem CD discontinued. Heart rate is controlled. On enoxaparin therapeutic dose for anticoagulation and changed to Xarelto at the time of discharge. Vomiting has resolved Patient has small cell lung cancer and chemotherapy. KUB shows gas-filled loops throughout large and small bowel. Symptomatic management. Patient has generalized weakness, loss of energy difficulty in getting up from chair and gets tired even on standing. PT and OT was done. Recommend discharge to SNF. Patient is discharged to SNF Patient also had diarrhea C. difficile negative. Stage IIIb small cell lung cancer. Had chemotherapy about [address] Johnson I have discussed my assessment with RAMONE Polanco and orders have been reviewed. Discharge medication reconciliation done. Discharge follow-up instructions completed. Discharge process discussed with the patient and all questions were answered to patient's satisfaction. Follow-up with foreign correspondent Dr. Schaefer, PCP and oncologist Total time spent, exact 35 minutes on discharge meds reconciliation, examination, coordination of care with nurses and ancillary staff, review of imaging and blood test and discussion with the patient on follow-up instructions.; I spent 20 minutes, more than half time and PA spent 15 minutes Physical Exam Narrative Seen and examined. Patient heart rate is controlled at 68 bpm. threat monitoring analyst shows A. fib. Patient is states he feels very weak and has difficulty in getting up from the bed. Patient has a history of lung cancer last chemotherapy about 2 weeks ago. General: Alert, Oriented x3, Cooperative HEENT: Atraumatic, PERRLA, EOMI, Normocephalic Oral: No Gingival or Mucosal Lesions/ Ulcerations Neck: Supple, No JVD, Negative Carotid Bruits Lungs: Air entry diminished in bilateral lung bases. No crepitation/rhonchi Cardiovascular: A. fib, normal S1, Normal S2, No murmurs Abdomen: Bowel Sounds Present, Soft, Non Tender, Non-Distended : No renal angle tenderness. No suprapubic tenderness. Extremities: Mild ankle edema , Capillary Refill Less than 3 Seconds Skin: No rashes, No breakdown Musculoskeletal: No Tenderness to Palpation of Joints or Extremities. Muscle strength 4/5 at major joints. Neurological: Cranial nerves II-XII grossly intact, DTR 2+/4 and Symmetrical, Neuro grossly intact Psych/Mental Status: Normal Affect, Appropriate ABG / Lab / Microbiology Data Result Diagrams: 02/04/22 06:27 02/04/22 06:27 Discharge Plan Admission Admit Date/Time: 02/02/22 17:19 Attending Provider: Harsha Aguilar Primary Care Provider: Lizzeth Velasquez Discharge Orders/Prescriptions Prescriptions: Continued (DME) Disability Placard See Rx Instructions .Route .MEDSUPPLY Qty: 1 RF: 0 acetaminophen [Tylenol Extra Strength] 500 mg tablet 500 mg PO BID PRN (Reason: Pain) RF: 0 prochlorperazine maleate 10 mg tablet 10 mg PO Q6H PRN (Reason: nausea and vomiting) Qty: 30 RF: 2 cholecalciferol (vitamin D3) 1,250 mcg (50,000 unit) capsule 1,250 mcg PO TH RF: 0 polyethylene glycol 3350 [Miralax] 17 gram Powder In Packet 17 g PO DAILY RF: 0 amiodarone 200 mg tablet 200 mg PO DAILY RF: 0 metoprolol tartrate 100 mg tablet 100 mg PO BID Qty: 0 RF: 0 rivaroxaban 20 mg tablet 20 mg PO QDAY Qty: 30 RF: 12 loratadine [Claritin] 10 mg tablet 10 mg PO DAILY PRN (Reason: nasal allergy) Qty: 0 RF: 0 albuterol sulfate 90 mcg/actuation aerosol powdr breath activated 2 inh INHALATION Q4H PRN PRN (Reason: Sob &/Or Wheezing) Qty: 1 RF: 6 pravastatin 40 mg tablet 40 mg PO DINNER Qty: 90 RF: 3 pantoprazole [Protonix] 40 mg tablet,delayed release (DR/EC) 40 mg PO DAILY Qty: 30 RF: 3 fluoxetine 20 mg capsule 60 mg PO DAILY Qty: 270 RF: 1 fluticasone propionate 50 mcg/actuation spray,suspension 2 spray NASAL DAILY PRN PRN (Reason: Nasal Congestion) Qty: 16 RF: 3 doxazosin 2 mg tablet 2 mg PO DAILY Qty: 90 RF: 3 tiotropium bromide 2.5 mcg/actuation mist 2 puff INHALATION DAILY Qty: 4 RF: 11 budesonide-formoterol [Symbicort] 160-4.5 mcg/actuation HFA aerosol inhaler 2 puff INHALATION BID Qty: 10.2 RF: 5 Changed potassium chloride 20 mEq tablet extended release 20 meq PO BID 90 Days Qty: 360 RF: 1 Discontinued metoclopramide HCl [Reglan] 5 mg tablet 5 mg PO Q6H PRN (Reason: nausea and vomiting) Qty: 12 RF: 0 Referrals / Follow Up: Regan Schaefer MD [STAFF PHYSICIAN] - Within 1 Month (for A fib) Lizzeth Velasquez MD [Primary Care Provider] - Within 2 Weeks Cristiana Johnson MD [STAFF PHYSICIAN] - Within 1 Month (Lung cancer) Disposition Disposition (needs filled in before D/C Order can be placed): Home, Self Care Charges/Coding Visit Charges Inpatient E&M: 74663 Disch Hosp
[2022-02-04 15:54] LABS: Pathologist Review Reviewed
--- NOTE | 2022-02-04 16:23 | NURSING ---
report called to [facility] for discharge.
== END 2022-02-04 16:54 | disposition home or self-care (01) | DRG 201 ==
LOC: ED 16:54 → PCU 17:31
PROVIDERS: Physician Assistant; Emergency Provider Emergency Medicine; PCP Internal Medicine; Visit Provider Internal Medicine
DX: I48.91 Unspecified atrial fibrillation (principal); E43 Unspecified severe protein-calorie malnutrition; D61.818 Other pancytopenia; R62.7 Adult failure to thrive; C34.90 Malignant neoplasm of unspecified part of unspecified bronchus or lung; C78.7 Secondary malignant neoplasm of liver and intrahepatic bile duct; E86.0 Dehydration; J44.9 Chronic obstructive pulmonary disease, unspecified; F31.9 Bipolar disorder, unspecified; E11.9 Type 2 diabetes mellitus without complications; I10 Essential (primary) hypertension; E78.5 Hyperlipidemia, unspecified; G47.33 Obstructive sleep apnea (adult) (pediatric); R19.7 Diarrhea, unspecified; R11.2 Nausea with vomiting, unspecified; F41.9 Anxiety disorder, unspecified; Z79.51 Long term (current) use of inhaled steroids; Z79.84 Long term (current) use of oral hypoglycemic drugs; Z66 Do not resuscitate; Z87.891 Personal history of nicotine dependence; Z79.01 Long term (current) use of anticoagulants; R53.81 Other malaise; T45.1X5A Adverse effect of antineoplastic and immunosuppressive drugs, initial encounter; Z68.28 Body mass index [BMI] 28.0-28.9, adult; Z79.899 Other long term (current) drug therapy
CPT/HCPCS: 36415; 36591; 71045; 74018; 80048; 80053; 81001; 83690; 84484; 85025; 87426; 93005; 94640; 97110; 97162; 97166; 97530; 97535; 99251; 99285; 99406; J7030; A4216; G0463; J2405

== ENCOUNTER → 2022-02-17 | Outpatient (REF) | payer MEDICAID, SELFPAY ==
[2021-06-14 10:52] VITALS: BMI 33.7
[2022-02-17 08:24] LABS: Hematocrit 30.4 % (40-54); Hemoglobin 9.3 g/dL (13.0-16.5); Mean Corp Hgb Conc 30.6 g/dL (32-36); Mean Corpuscular Hgb 29.2 pg (27.0-32.0); Mean Corpuscular Volume 95.3 fL (80-94); Mean Platelet Vol. 9.9 fl (6.2-12.0); Platelet Count 152 K/mm3 (150-450); RBC Distribution Width CV 18.2 % (11.6-14.6); Red Blood Count 3.19 M/mm3 (4.6-6.2); White Blood Count 3.5 K/mm3 (4.4-11.0)
[2022-02-17 08:40] LABS: ALB/GLOB Ratio 0.7 RATIO (0.9-2.4); AST(SGOT) 35 U/L (15-37); Alanine Aminotransfer ALT/SGPT 30 U/L (16-61); Albumin, Serum 2.4 g/dL (3.2-5.0); Alkaline Phosphatase 68 U/L (45-117); Anion Gap 4 (5-15); BUN 30 mg/dL (7-18); BUN/Creat Ratio 17.1 RATIO (10-20); Calcium,Total 8.7 mg/dL (8.5-10.1); Chloride 105 mmol/L (98-107); Creatinine, Serum 1.75 mg/dL (0.70-1.30); EST Glomerular Filtration Rate 43 mL/min (>60); Est Glom Filt Rate - Afr Amer 52 mL/min (>60); Globulin 3.6 g/dL (2.2-4.2); Glucose 95 mg/dL (74-106); Potassium 4.7 mmol/L (3.5-5.1); Sodium Level 134 mmol/L (136-145)
== END | disposition home or self-care (01) ==
LOC: OLS.SW1020 04:00
PROVIDERS: PCP Internal Medicine; Referring Provider Internal Medicine; Visit Provider Internal Medicine
DX: I10 Essential (primary) hypertension (principal); C34.90 Malignant neoplasm of unspecified part of unspecified bronchus or lung
CPT/HCPCS: 36415; 80053; 85027

== ENCOUNTER 2022-02-21 23:31 | Emergency (ER) | payer MEDICAID, SELFPAY ==
[2021-06-14 10:52] VITALS: BMI 33.7
[2022-02-21 23:33] VITALS: BP 125/86; PULSE 86; RESP 14; TEMP 36.3; O2SAT 95; BMI 32.2
--- NOTE | 2022-02-22 00:11 | EX.ED.DYSGE1 ---
HPI History of Present Illness Chief Complaint: Mental Status Change Narrative Narrative: Patient is a 56-year-old male with past medical history of lung cancer with metastases to the liver. He states that prior to his cancer diagnosis he used to use marijuana and would occasionally have hallucinations from this. He states after his cancer diagnosis he is switched to synthetic/vaping marijuana as well as edibles. Reportedly today he used his vaping pen and afterwards had a bout of confusion/hallucination. alf where he states was concerned because of this and they also felt that his skin was more jaundiced than normal and therefore sent the patient to the ER for evaluation. It did take a few hours before patient arrived to the ER and upon arrival he is awake and alert with no signs of confusion and states he feels at his baseline and he is not concerned about the hallucinations as it has happened in the past after using his synthetic medications. [facility] Medical History Abnormal PET scan of colon Acute on chronic diastolic CHF (congestive heart failure) Acute respiratory failure with hypoxia Adrenal nodule Anxiety and depression Asthma, moderate persistent Atrial fibrillation Atrial fibrillation with rapid ventricular response BiPAP (biphasic positive airway pressure) dependence Bipolar disorder Borderline type 2 diabetes mellitus Chemotherapy induced neutropenia Chronic respiratory failure CINV (chemotherapy-induced nausea and vomiting) Consolidation of right lower lobe of lung Dyspnea Encounter for education Encounter for education Essential (primary) hypertension Fatigue Hallucination Hallucinations, visual History of lung cancer Hyperlipidemia Hypokalemia Liver metastasis Longstanding persistent atrial fibrillation Lung cancer Marijuana abuse Migraines Nausea Nausea & vomiting Nicotine dependence Nocturia Obesity Oral candidiasis ALEX (obstructive sleep apnea) Pancytopenia due to chemotherapy Pleural effusion, right Radiation dermatitis Rectal abnormality Rectal pain Regional lymph node metastasis present Smoker 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 classification Home Medications albuterol sulfate 90 mcg/actuation breath activated powder inhaler 2 inh INHALATION Q4H PRN PRN #1 each 01/21/21 [Rx Last Taken 08/13/21] pravastatin 40 mg tablet 40 mg PO DINNER #90 tablet 05/02/21 [Rx Last Taken 08/12/21] cholecalciferol (vitamin D3) 1,250 mcg PO TH 06/05/21 [History Last Taken 08/10/21] Disability Placard #1 ea 06/20/21 [Rx Last Taken Unknown] pantoprazole 40 mg tablet,delayed release 40 mg PO DAILY #30 tab 07/15/21 [Rx Last Taken 08/13/21] fluoxetine 20 mg capsule 60 mg PO DAILY #270 cap 07/30/21 [Rx Last Taken 08/13/21] fluticasone propionate 50 mcg/actuation nasal spray,suspension 2 spray NASAL DAILY PRN PRN #16 g 09/18/21 [Rx Last Taken Unknown] acetaminophen 500 mg tablet 500 mg PO BID PRN tab 11/14/21 [History Last Taken Unknown] doxazosin 2 mg tablet 2 mg PO DAILY #90 tablet 12/13/21 [Rx Last Taken Unknown] Symbicort 160 mcg-4.5 mcg/actuation HFA aerosol inhaler 2 puff INHALATION BID #10.2 g NS 01/16/22 [Rx Last Taken Unknown] tiotropium bromide 2.5 mcg/actuation mist for inhalation 2 puff INHALATION DAILY #4 gm 01/16/22 [Rx Last Taken Unknown] prochlorperazine maleate 10 mg tablet 10 mg PO Q6H PRN #30 tab 01/21/22 [Rx Last Taken Unknown] amiodarone 200 mg PO DAILY 02/02/22 [History Last Taken Unknown] polyethylene glycol 3350 [Miralax] 17 g PO DAILY 02/02/22 [History Last Taken Unknown] loratadine [Claritin] 10 mg PO DAILY PRN #0 tab 02/04/22 [Rx Last Taken Unknown] metoprolol tartrate 100 mg PO BID #0 tab 02/04/22 [Rx Last Taken Unknown] potassium chloride 20 meq PO BID 90 Days #360 tab 02/04/22 [Rx Last Taken Unknown] rivaroxaban 20 mg PO QDAY #30 tablet 02/04/22 [Rx Last Taken 08/12/21] MAGIC MOUTH WASH (BMX) 15 ml PO Q4H PRN PRN #180 ml 02/11/22 [Rx Last Taken Unknown] guaifenesin 100 mg/5 mL oral liquid 200 mg PO Q4H PRN 02/11/22 [History Last Taken Unknown] lorazepam 0.5 mg tablet 0.5 mg PO TID PRN 02/11/22 [History Last Taken Unknown] nystatin 100,000 unit/mL oral suspension 5 ml PO TID ml 02/11/22 [History Last Taken Unknown] oxycodone 5 mg tablet 5 mg PO Q8H PRN 02/11/22 [History Last Taken Unknown] Allergy/AdvReac Type Severity Reaction Status Date / Time atezolizumab AdvReac Severe Pneumonia Verified 02/11/22 10:49 pioglitazone HCl [From Actos] AdvReac Severe Other Verified 02/11/22 10:49 Family History Father CAD (coronary artery disease) Hx CABG Family history of hypertension Family history of hyperlipidemia Hypertension CVA (cerebral vascular accident) Mother , Age 55 Sudden cardiac Family history of hypertension Sister Family history of hypertension Family history of hyperlipidemia Diabetes Grandfather CVA (cerebral vascular accident) Grandmother CVA (cerebral vascular accident) Uncle Lung cancer Surgical History History of cardioversion (03/2016) History of stomach ulcers History of thoracentesis (01/2020) History of tonsillectomy Pilonidal cyst (~1986) PORT PLACEMENT Social History housing: assisted other: pt currently at [facility] for physical therapy (02/11/22) Smoking Status: Former smoker quit date: 09/01/20 alcohol intake: never details: occasional substance use type: marijuana caffeine: Yes Type: carbonated beverages and coffee what type of physical activity do you participate in: none romero/anabaptist: Protestant seatbelt use: always do you feel safe at home: Yes ROS ROS ED Constitutional Constitutional ED: Denies chills or fever(s) ENT ENT ED: Denies sore throat Cardiovascular Cardiovascular: Denies chest pain Respiratory/Chest Respiratory/Chest: Denies cough or dyspnea Gastrointestinal Gastrointestinal: Denies abdominal pain, diarrhea, nausea or vomiting Genitourinary Genitourinary ED: Denies dysuria Musculoskeletal Musculoskeletal: Denies myalgias Integumentary Denies rash Neurologic Neurologic: Denies headache(s) Hematologic/Lymphatic Hematologic/Lymphatic: Reports easy bleeding and easy bruising EXAM Physical Exam Const Vital Signs: 02/21/22 23:33 02/22/22 01:06 Temperature 97.3 F L 97.5 F L Temperature Source Temporal Temporal Pulse Rate 86 74 Respiratory Rate 14 24 H Blood Pressure 125/86 H 101/86 H Blood Pressure Mean 99 91 Pulse Ox 95 Oxygen Delivery Method Room Air Positive well nourished, well developed and obese General Appearance ED: well developed Nutritional Appearance: obese HEENT Reports moist mucous membranes Eyes PERRL and EOMs intact bilaterally Eyes Narrative: There is faint scleral icterus noted Neck supple Resp normal respiratory effort and clear to auscultation bilaterally Cardio Rate: other Other Details: Irregularly irregular rhythm with regular rate consistent with history of atrial fibrillation GI normal to inspection, nondistended, normoactive bowel sounds, non-tender, non-distended and no masses GI Narrative: No guarding or rigidity no pulsatile mass Auscultation: normoactive bowel sounds Palpation: soft Extremity Extremity Narrative: Chronic stasis changes to bilateral lower extremities Neuro oriented x3 and CN's II-XII intact bilaterally Neuro Narrative: NIH stroke scale score of 0 Sensorium / Orientation: alert Psych mental status grossly normal Skin Skin Narrative: Faint jaundice noted consistent with history of liver CA and chronic stasis changes to bilateral lower legs MDM MDM MDM Narrative Medical decision making narrative: Patient presented to the ER with stable vitals and he is awake and alert and oriented to person place and time. He has just mild jaundice to his eyes and skin which can correlate with his history of liver cancer which patient states his coloring is at his baseline. After talking to the patient it seems his main reason for being sent in was the hallucinations. The patient had reported this has happened multiple times in the past and does admit to using synthetic marijuana prior to the change in mental status. He has a normal neurologic exam and is awake alert and oriented person place and time and he is no longer having any of the symptoms. With the nursing reporting they were concerned for jaundiced as well I did elect to perform basic laboratory studies. The patient's liver enzymes are at his baseline with no elevation to his total bilirubin. He does have pancytopenia with decreased to his white count hemoglobin hematocrit and platelets as well as his neutrophils and lymphocytes. With the pancytopenia however he does not have a fever and he denies any sick symptoms. We discussed IV hydration because of his report of poor oral intake and the slight elevation to his kidney function but patient does not want that provided at this time. We also discussed further testing and possible admission due to the pancytopenia. However the patient states that he no longer wants to be kept in the hospital. He is awake alert and oriented person place and time and therefore I cannot hold him against his will. Therefore patient will be discharged to return to the assisted and he can follow-up with his family doctor and oncologist for further evaluation and continue to monitor his pancytopenia. Lab Data Attestation: I reviewed the patient's lab results. Labs: Laboratory Results - last 24 hr 02/22/22 02/22/22 02/22/22 00:15 00:15 00:15 WBC 1.4 L* RBC 3.22 L Hgb 9.7 L Hct 31.2 L MCV 96.9 H MCH 30.1 MCHC 31.1 L RDW Std Deviation 63.4 H RDW Coeff of Benjamin 18.3 H Plt Count 78 L MPV 10.8 Immature Gran % (Auto) 1.500 H Neut % (Auto) 44.4 L Lymph % (Auto) 40.0 Haines % (Auto) 12.6 H Eos % (Auto) 1.5 Baso % (Auto) 0.0 Absolute Neuts (auto) 0.6 L Absolute Lymphs (auto) 0.54 L Nucleated RBC % 0 Sodium 139 Potassium 5.2 H Chloride 111 H Carbon Dioxide 24.0 Anion Gap 4 L BUN 21 H Creatinine 1.54 H Estim Creat Clear Calc 63.25 Est GFR (MDRD) Af Amer 60 Est GFR (MDRD) Non-Af 50 L BUN/Creatinine Ratio 13.6 Glucose 87 Calcium 9.0 Total Bilirubin 0.50 Direct Bilirubin 0.29 AST 15 ALT 15 L Alkaline Phosphatase 57 Ammonia < 10.0 L Total Protein 5.7 L Albumin 2.2 L Globulin 3.5 Discharge Plan Triage Chief Complaint: Mental Status Change ED Provider: Alo Elizabeth Dx/Rx/DC Orders Clinical Impression: Pancytopenia, Hallucination, Liver metastasis Instructions: Immunocompromised Patient Dc Prescriptions: No Action (DME) Disability Placard See Rx Instructions .Route .MEDSUPPLY Qty: 1 RF: 0 acetaminophen [Tylenol Extra Strength] 500 mg tablet 500 mg PO BID PRN (Reason: Pain) RF: 0 prochlorperazine maleate 10 mg tablet 10 mg PO Q6H PRN (Reason: nausea and vomiting) Qty: 30 RF: 2 lorazepam [Ativan] 0.5 mg tablet 0.5 mg PO TID PRNRF: 0 guaifenesin 100 mg/5 mL liquid 200 mg PO Q4H PRNRF: 0 oxycodone 5 mg tablet 5 mg PO Q8H PRNRF: 0 nystatin 100,000 unit/mL suspension 5 ml PO TID RF: 0 MAGIC MOUTH WASH (BMX) 180 mL Suspension 15 ml PO Q4H PRN PRN (Reason: Mouth Pain) Qty: 180 RF: 1 cholecalciferol (vitamin D3) 1,250 mcg (50,000 unit) capsule 1,250 mcg PO TH RF: 0 polyethylene glycol 3350 [Miralax] 17 gram Powder In Packet 17 g PO DAILY RF: 0 amiodarone 200 mg tablet 200 mg PO DAILY RF: 0 metoprolol tartrate 100 mg tablet 100 mg PO BID Qty: 0 RF: 0 rivaroxaban 20 mg tablet 20 mg PO QDAY Qty: 30 RF: 12 potassium chloride 20 mEq tablet extended release 20 meq PO BID 90 Days Qty: 360 RF: 1 loratadine [Claritin] 10 mg tablet 10 mg PO DAILY PRN (Reason: nasal allergy) Qty: 0 RF: 0 albuterol sulfate 90 mcg/actuation aerosol powdr breath activated 2 inh INHALATION Q4H PRN PRN (Reason: Sob &/Or Wheezing) Qty: 1 RF: 6 pravastatin 40 mg tablet 40 mg PO DINNER Qty: 90 RF: 3 pantoprazole [Protonix] 40 mg tablet,delayed release (DR/EC) 40 mg PO DAILY Qty: 30 RF: 3 fluoxetine 20 mg capsule 60 mg PO DAILY Qty: 270 RF: 1 fluticasone propionate 50 mcg/actuation spray,suspension 2 spray NASAL DAILY PRN PRN (Reason: Nasal Congestion) Qty: 16 RF: 3 doxazosin 2 mg tablet 2 mg PO DAILY Qty: 90 RF: 3 tiotropium bromide 2.5 mcg/actuation mist 2 puff INHALATION DAILY Qty: 4 RF: 11 budesonide-formoterol [Symbicort] 160-4.5 mcg/actuation HFA aerosol inhaler 2 puff INHALATION BID Qty: 10.2 RF: 5 Primary Care Provider: Lizzeth Velasquez Referrals: Lizzeth Velasquez MD [Primary Care Provider] - Disposition Disposition: Home, Self Care
[2022-02-22 00:30] LABS: Absolute Lymphocyte Count 0.54 X10^3/uL (0.83-4.51); Absolute Neutrophil Count 0.6 X10^3/uL (2.0-7.7); Eosinophil# 0.02 X10^3/uL; Eosinophils% 1.5 % (0-5); Hematocrit 31.2 % (40-54); Hemoglobin 9.7 g/dL (13.0-16.5); Lymphocyte # 0.54 X10^3/ul (0.83-4.51); Mean Corp Hgb Conc 31.1 g/dL (32-36); Mean Corpuscular Hgb 30.1 pg (27.0-32.0); Mean Corpuscular Volume 96.9 fL (80-94); Mean Platelet Vol. 10.8 fl (6.2-12.0); Monocyte# 0.17 X10^3/uL; Monocyte% 12.6 % (0-10); NRBC Flagged by Analyzer 0 % (0-5); Neutrophil % 44.4 % (47-70); POSITIVE COUNT YES; POSITIVE DIFFERENTIAL YES; POSITIVE MORPHOLOGY YES; Platelet Count 78 K/mm3 (150-450); RBC Distribution Width CV 18.3 % (11.6-14.6); RBC Distribution Width SD 63.4 fl (35.1-43.9); Red Blood Count 3.22 M/mm3 (4.6-6.2); White Blood Count 1.4 K/mm3 (4.4-11.0)
[2022-02-22 00:32] LABS: Differential Indicated SCAN CRITERIA MET
[2022-02-22 00:49] LABS: AST(SGOT) 15 U/L (15-37); Alanine Aminotransfer ALT/SGPT 15 U/L (16-61); Albumin, Serum 2.2 g/dL (3.2-5.0); Alkaline Phosphatase 57 U/L (45-117); Anion Gap 4 (5-15); BUN 21 mg/dL (7-18); BUN/Creat Ratio 13.6 RATIO (10-20); Bilirubin, Direct 0.29 mg/dL (0.00-0.30); Chloride 111 mmol/L (98-107); Creatinine, Serum 1.54 mg/dL (0.70-1.30); EST Glomerular Filtration Rate 50 mL/min (>60); Est Glom Filt Rate - Afr Amer 60 mL/min (>60); Estimated Creatinine Clearance 63.25 ml/min; Globulin 3.5 g/dL (2.2-4.2); Glucose 87 mg/dL (74-106); Potassium 5.2 mmol/L (3.5-5.1); Protein, Total 5.7 g/dL (6.4-8.2); Sodium Level 139 mmol/L (136-145)
[2022-02-22 00:55] LABS: Ammonia < 10.0 umol/L (11-32)
[2022-02-22 00:58] LABS: Differential Comment SCANNED
[2022-02-22 01:06] VITALS: BP 101/86; PULSE 74; RESP 24; TEMP 36.4
[2022-02-25 14:01] LABS: Pathologist Review Reviewed
== END 2022-02-22 01:29 | disposition home or self-care (01) ==
PROVIDERS: Emergency Provider Emergency Medicine; PCP Internal Medicine; Visit Provider Emergency Medicine
DX: R44.3 Hallucinations, unspecified (principal); C78.7 Secondary malignant neoplasm of liver and intrahepatic bile duct; C34.90 Malignant neoplasm of unspecified part of unspecified bronchus or lung; D61.818 Other pancytopenia; J44.9 Chronic obstructive pulmonary disease, unspecified; F31.9 Bipolar disorder, unspecified; I48.11 Longstanding persistent atrial fibrillation; I10 Essential (primary) hypertension; Z87.891 Personal history of nicotine dependence; E78.5 Hyperlipidemia, unspecified; F41.9 Anxiety disorder, unspecified; F12.10 Cannabis abuse, uncomplicated; E66.9 Obesity, unspecified; G47.33 Obstructive sleep apnea (adult) (pediatric); Z79.899 Other long term (current) drug therapy; Z79.01 Long term (current) use of anticoagulants; Z68.32 Body mass index [BMI] 32.0-32.9, adult
CPT/HCPCS: 80048; 80076; 82140; 85025; 99283

== ENCOUNTER 2022-02-24 13:21 | Outpatient (CLI) | payer MEDICAID, SELFPAY ==
[2021-06-14 10:52] VITALS: BMI 33.7
--- NOTE | 2022-02-24 13:24 | CT_ITS ---
EXAM: CT CHEST AND ABDOMEN WITH INTRAVENOUS CONTRAST CLINICAL INDICATION: SCLC ON RX TECHNIQUE: Helically acquired images were obtained of the chest and abdomen with intravenous contrast. This CT exam was performed using one or more of the following dose reduction techniques: automated exposure control, adjustment of the mA and/or kV according to patient size, and/or use of iterative reconstruction technique. This report was created using [employer] report generation technology. CONTRAST: IV 100mL Isovue-300 COMPARISON: Dec 03 2021 8:55am FINDINGS: CHEST: LUNGS AND PLEURAL SPACES: Stable loculated appearance of a right pleural effusion. Development of a small left pleural effusion. Right perihilar interstitial thickening may represent postradiation fibrosis changes. It is difficult to exclude underlying mass. The findings are stable since the prior study. There are scattered blebs and bullae. This can be seen in pulmonary emphysema. No pneumothorax. HEART: Unremarkable. Heart size is normal. No pericardial effusion. No significant coronary artery calcifications. MEDIASTINUM: Esophageal wall thickening may suggest an esophagitis. There is volume loss on the right with rightward shift of the mediastinum. This is a stable finding. No mediastinal or hilar adenopathy. No hiatal hernia. THYROID: Unremarkable. No thyroid lesions. ABDOMEN: LIVER: Abnormal appearing lesions in the liver again consistent for metastatic disease to the liver. However the lesions appear smaller in size suggesting improvement. There is periportal edema noted. GALLBLADDER AND BILE DUCTS: Unremarkable. No calcified gallstones. No gallbladder distention or wall edema. No intra- or extrahepatic biliary ductal dilation. PANCREAS: Unremarkable. No focal cystic or solid mass. SPLEEN: Unremarkable. Normal size without focal cystic or solid mass. ADRENALS: Unremarkable. No nodules. KIDNEYS AND URETERS: Stable hypodensity of the left kidney. Normal renal size and position. No hydronephrosis. STOMACH AND BOWEL: There is an umbilical hernia containing fat. There is no bowel involvement. There is no incarceration. There is no findings suggesting that this is causing a bowel obstruction. No focal inflammatory change. INTRAPERITONEAL SPACE: Unremarkable. No ascites or other fluid collection. No free air. CHEST and ABDOMEN: BONES/JOINTS: Since the prior CT scan, there is a new L1 compression fracture. There are no retropulsed fragments but the findings are concerning for a pathologic fracture. Degenerative findings in the thoracic spine. Degenerative findings in the lumbar spine. No suspicious lytic or blastic abnormality. SOFT TISSUES: There is carinal soft tissue thickening which may represent metastatic disease. This is significantly improved since the prior study. VASCULATURE: There are calcifications of the abdominal aorta. This is consistent for atherosclerotic disease. There is no abdominal aortic aneurysm. There are thoracic aortic calcifications consistent for atherosclerotic disease. There is no dissection or hematoma noted in the thoracic aorta. There are calcifications of the abdominal aorta. This is consistent for atherosclerotic disease. There is no abdominal aortic aneurysm. No obvious central pulmonary embolism although this study was not performed with the pulmonary embolism protocol. LYMPH NODES: Unremarkable. No enlarged lymph nodes. TUBES, LINES AND DEVICES: There is a left Port-A-Cath and/or mediport in place. The tip is in the superior vena cava. CT/CT Chest AND Abd W/ Contrast IMPRESSION: 1. Esophageal wall thickening may suggest an esophagitis. 2. Stable loculated appearance of a right pleural effusion. Development of a small left pleural effusion. 3. Abnormal appearing lesions in the liver again consistent for metastatic disease to the liver. However the lesions appear smaller in size suggesting improvement. 4. There is carinal soft tissue thickening which may represent metastatic disease. This is significantly improved since the prior study. 5. Right perihilar interstitial thickening may represent postradiation fibrosis changes. It is difficult to exclude underlying mass or lymphangitic spread of carcinoma. The findings are stable since the prior study. 6. Since the prior CT scan, there is a new L1 compression fracture. There are no retropulsed fragments but the findings are concerning for a pathologic fracture. Electronically Signed: Kedar Zuniga MD at 17:36 EDT ,
[2022-02-24] MEDS: 0.9% Saline Lock 10 ML Syringe IV (14:00)
== END 2022-02-24 23:59 | disposition home or self-care (01) ==
PROVIDERS: PCP Internal Medicine; Referring Provider Internal Medicine Hematology & Oncology; Visit Provider Internal Medicine Hematology & Oncology
DX: C34.90 Malignant neoplasm of unspecified part of unspecified bronchus or lung (principal); C78.7 Secondary malignant neoplasm of liver and intrahepatic bile duct
CPT/HCPCS: 71260; 74160; Q9967; A4216

== ENCOUNTER → 2022-02-25 | Outpatient (REF) | payer MEDICAID, SELFPAY ==
[2021-06-14 10:52] VITALS: BMI 33.7
[2022-02-25 07:21] LABS: Mucous, Urine 0 SEEN /hpf (<or=2+); Red Blood Cells-Urine 0 SEEN /hpf (0-5); Squamous Epithelial Cells - UA 0 SEEN /hpf (0-5); White Blood Cells 0 SEEN /hpf (0-5)
[2022-02-25 07:55] LABS: Color, Urine Yellow (Yellow); Glucose, Dipstick Normal (Normal); Ketone-Dipstick 5 mg/dl (Negative); Leukocyte Esterase-Dipstick Negative /ul (Negative); Nitrite-Dipstick Negative (Negative); Occult Blood-Urine Negative /ul (Negative); Protein-Dipstick 15 mg/dl (Negative); Urine Bilirubin Dipstick Negative (Negative); Urine Clarity Turbid (Clear); Urine Urobilinogen Normal (Normal)
[2022-02-25 08:03] LABS: Amorphous Sediment 2+; Bacteria 1+ /hpf (None Seen)
== END | disposition home or self-care (01) ==
LOC: OLS.SW1020 01:30
PROVIDERS: PCP Internal Medicine; Visit Provider Internal Medicine
DX: R41.0 Disorientation, unspecified (principal); N39.0 Urinary tract infection, site not specified
CPT/HCPCS: 81001; 87086; 87088

== ENCOUNTER 2022-03-13 16:34 | Observation (INO) | payer MEDICAID, SELFPAY ==
[2021-06-14 10:52] VITALS: BMI 33.7
[2022-03-13] VITALS (16 sets, daily range): BP systolic 111–136; BP diastolic 70–88; PULSE 64–125; RESP 14–34; TEMP 36.3–36.7; O2SAT 92–100; BMI 28.3
--- NOTE | 2022-03-13 17:01 | EKG12_ITS ---
Test Reason : SOB Blood Pressure : / mmHG Vent. Rate : 089 BPM Atrial Rate : 088 BPM P-R Int : 000 ms QRS Dur : 114 ms QT Int : 380 ms P-R-T Axes : 000 -36 153 degrees QTc Int : 462 ms Atrial fibrillation Left axis deviation ST & T wave abnormality, consider lateral ischemia Abnormal ECG Confirmed by TOMAS BARKLEY, ANDREY ([id number]), editor map SARY OLIVO ([id number]) on 03/18/2022 8:47:10 AM Referred By: RUMA Confirmed By:ANDREY MARIN MD
[2022-03-13] MEDS: Ipratropium/Albuterol Sulfate 3 ML AMPUL.NEB INHALATION (17:19)
[2022-03-13] MEDS: Albuterol 2.5 MG/3 ML VIAL.NEB. INHALATION (17:19)
[2022-03-13 17:25] LABS: Absolute Lymphocyte Count 0.24 X10^3/uL (0.83-4.51); Absolute Neutrophil Count 0.5 X10^3/uL (2.0-7.7); Eosinophil# 0.01 X10^3/uL; Eosinophils% 1.2 % (0-5); Hematocrit 27.5 % (40-54); Hemoglobin 8.8 g/dL (13.0-16.5); Lymphocyte # 0.24 X10^3/ul (0.83-4.51); Lymphocyte % 28.2 % (19-41); Mean Corpuscular Hgb 30.2 pg (27.0-32.0); Mean Corpuscular Volume 94.5 fL (80-94); Mean Platelet Vol. 11.8 fl (6.2-12.0); Monocyte# 0.11 X10^3/uL; Monocyte% 12.9 % (0-10); NRBC Flagged by Analyzer 0 % (0-5); Neutrophil # 0.47 X10^3/uL (2.7-7.7); Neutrophil % 55.3 % (47-70); POSITIVE COUNT YES; POSITIVE DIFFERENTIAL YES; POSITIVE MORPHOLOGY YES; RBC Distribution Width CV 18.6 % (11.6-14.6); RBC Distribution Width SD 64.1 fl (35.1-43.9); Red Blood Count 2.91 M/mm3 (4.6-6.2)
[2022-03-13 17:31] LABS: International Normalized Ratio 1.7; Prothrombin Time (Protime)PT. 19.5 SECONDS (11.7-14.9)
[2022-03-13 17:38] LABS: ALB/GLOB Ratio 0.6 RATIO (0.9-2.4); AST(SGOT) 20 U/L (15-37); Alanine Aminotransfer ALT/SGPT 22 U/L (16-61); Albumin, Serum 2.1 g/dL (3.2-5.0); Alkaline Phosphatase 44 U/L (45-117); Anion Gap 4 (5-15); BUN 34 mg/dL (7-18); BUN/Creat Ratio 20.9 RATIO (10-20); Calcium,Total 8.9 mg/dL (8.5-10.1); Chloride 104 mmol/L (98-107); Creatinine, Serum 1.63 mg/dL (0.70-1.30); EST Glomerular Filtration Rate 47 mL/min (>60); Est Glom Filt Rate - Afr Amer 56 mL/min (>60); Estimated Creatinine Clearance 61.39 ml/min; Globulin 3.4 g/dL (2.2-4.2); Glucose 107 mg/dL (74-106); Potassium 4.8 mmol/L (3.5-5.1); Protein, Total 5.5 g/dL (6.4-8.2); Sodium Level 134 mmol/L (136-145)
[2022-03-13] MEDS: Acetaminophen 500 MG Tablet 1000 MG PO (17:39)
[2022-03-13 17:44] LABS: Differential Indicated SCAN CRITERIA MET; White Blood Count 0.9 K/mm3 (4.4-11.0)
[2022-03-13 17:45] LABS: Platelet Count 21 K/mm3 (150-450)
--- NOTE | 2022-03-13 17:50 | RAD_ITS ---
STUDY: X-RAY CHEST REASON FOR EXAM: Male, 56 years old. Shortness of breath TECHNIQUE: Single frontal view of the chest. COMPARISON: 02/02/2022 FINDINGS: Left Port-A-Cath tip is in the region of the cavoatrial junction. Extensive right pulmonary opacities and likely large effusion. Minimal left pulmonary opacities. Normal size heart. Normal mediastinum and inge. Normal visualized pulmonary arteries. Normal visualized aortic arch and descending thoracic aorta. Normal visualized thoracic spine. Normal visualized ribs, clavicles, and shoulders. There is no demonstrated abnormality of the visualized soft tissue structures of the upper abdomen. RAD/Chest 1 View (Portable) IMPRESSION: Worsening pulmonary opacities with near total opacification of the right lung. Electronically Signed: Giovani Yancey MD at 18:19 EDT ,
--- NOTE | 2022-03-13 18:47 | EX.ED.DYSGE1 ---
HPI <ROBERT Luciano - Last Filed: 03/13/22 18:53> History of Present Illness Chief Complaint: Shortness of Breath Narrative Narrative: 56-year-old male with history of small cell carcinoma, diabetes, hypertension who currently lives at a care home presents to the emergency department with cough, congestion for 2 days as well as a fever of 101.2. Patient currently is receiving chemotherapy, last dose was 8 days ago. He also has been more short of breath this week and was placed on supplemental oxygen at the care home. Patient is here for reevaluation. [facility] <ROBERT Luciano - Last Filed: 03/13/22 18:53> [facility] Medical History Abnormal PET scan of colon Acute on chronic diastolic CHF (congestive heart failure) Acute respiratory failure with hypoxia Adrenal nodule Anxiety and depression Asthma, moderate persistent Atrial fibrillation Atrial fibrillation with rapid ventricular response BiPAP (biphasic positive airway pressure) dependence Bipolar disorder Borderline type 2 diabetes mellitus Chemotherapy induced neutropenia Chronic respiratory failure CINV (chemotherapy-induced nausea and vomiting) Consolidation of right lower lobe of lung Dyspnea Encounter for education Encounter for education Essential (primary) hypertension Fatigue Hallucination Hallucinations, visual History of lung cancer Hyperlipidemia Hypokalemia Liver metastasis Longstanding persistent atrial fibrillation Lung cancer Marijuana abuse Migraines Nausea Nausea & vomiting Nicotine dependence Nocturia Obesity Oral candidiasis ALEX (obstructive sleep apnea) Pancytopenia due to chemotherapy Pleural effusion, right Radiation dermatitis Rectal abnormality Rectal pain Regional lymph node metastasis present Smoker 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 classification Home Medications albuterol sulfate 90 mcg/actuation breath activated powder inhaler 2 inh INHALATION Q4H PRN PRN #1 each 01/21/21 [Rx Last Taken 08/13/21] pravastatin 40 mg tablet 40 mg PO DINNER #90 tablet 05/02/21 [Rx Last Taken 08/12/21] cholecalciferol (vitamin D3) 1,250 mcg PO TH 06/05/21 [History Last Taken 08/10/21] Disability Placard #1 ea 06/20/21 [Rx Last Taken Unknown] pantoprazole 40 mg tablet,delayed release 40 mg PO DAILY #30 tab 07/15/21 [Rx Last Taken 08/13/21] fluoxetine 20 mg capsule 60 mg PO DAILY #270 cap 07/30/21 [Rx Last Taken 08/13/21] fluticasone propionate 50 mcg/actuation nasal spray,suspension 2 spray NASAL DAILY PRN PRN #16 g 09/18/21 [Rx Last Taken Unknown] acetaminophen 500 mg tablet 500 mg PO BID PRN PRN tab 11/14/21 [History Last Taken Unknown] tiotropium bromide 2.5 mcg/actuation mist for inhalation 2 puff INHALATION DAILY #4 gm 01/16/22 [Rx Last Taken Unknown] prochlorperazine maleate 10 mg tablet 10 mg PO Q6H PRN #30 tab 01/21/22 [Rx Last Taken Unknown] amiodarone 200 mg PO DAILY 02/02/22 [History Last Taken Unknown] polyethylene glycol 3350 [Miralax] 17 g PO BID 02/02/22 [History Last Taken Unknown] loratadine [Claritin] 10 mg PO DAILY PRN #0 tab 02/04/22 [Rx Last Taken Unknown] metoprolol tartrate 100 mg PO BID #0 tab 02/04/22 [Rx Last Taken Unknown] rivaroxaban 20 mg PO QDAY #30 tablet 02/04/22 [Rx Last Taken 08/12/21] MAGIC MOUTH WASH (BMX) 15 ml PO Q4H PRN PRN #180 ml 02/11/22 [Rx Last Taken Unknown] guaifenesin 100 mg/5 mL oral liquid 200 mg PO Q4H PRN 02/11/22 [History Last Taken Unknown] lorazepam 0.5 mg tablet 0.5 mg PO TID PRN 02/11/22 [History Last Taken Unknown] oxycodone 5 mg tablet 5 mg PO Q8H PRN 02/11/22 [History Last Taken Unknown] acetaminophen 650 mg PO Q4H PRN 03/13/22 [History Last Taken Unknown] acetaminophen 650 mg DE Q4H PRN 03/13/22 [History Last Taken Unknown] aluminum-magnesium hydroxide [Antacid] 30 ml PO Q4H PRN PRN 03/13/22 [History Last Taken Unknown] bisacodyl 10 mg DE DAILY PRN 03/13/22 [History Last Taken Unknown] dextrose [Glucose Gel] 10 g PO Q15M PRN 03/13/22 [History Last Taken Unknown] doxazosin 2 mg PO QHS 03/13/22 [History Last Taken Unknown] fluticasone furoate-vilanterol [Breo Ellipta] 1 inh INHALATION DAILY 03/13/22 [History Last Taken Unknown] glucagon [Glucagon Emergency Kit] 1 mg IM PRN PRN 03/13/22 [History Last Taken Unknown] lidocaine 1 applic TOPICAL PRN PRN 03/13/22 [History Last Taken Unknown] metoclopramide HCl 5 mg PO Q6H PRN PRN 03/13/22 [History Last Taken Unknown] ondansetron HCl [Zofran] 4 mg PO DAILY 03/13/22 [History Last Taken Unknown] potassium chloride 20 meq PO DAILY 03/13/22 [History Last Taken Unknown] sodium phosphates [Fleet Enema] 118 ml DE DAILY PRN 03/13/22 [History Last Taken Unknown] Allergy/AdvReac Type Severity Reaction Status Date / Time atezolizumab AdvReac Severe Pneumonia Verified 03/13/22 16:43 pioglitazone HCl [From Actos] AdvReac Severe Other Verified 03/13/22 16:43 Family History Father CAD (coronary artery disease) Hx CABG Family history of hypertension Family history of hyperlipidemia Hypertension CVA (cerebral vascular accident) Mother , Age 55 Sudden cardiac Family history of hypertension Sister Family history of hypertension Family history of hyperlipidemia Diabetes Grandfather CVA (cerebral vascular accident) Grandmother CVA (cerebral vascular accident) Uncle Lung cancer Surgical History History of cardioversion (03/2016) History of stomach ulcers History of thoracentesis (01/2020) History of tonsillectomy Pilonidal cyst (~1986) PORT PLACEMENT Social History housing: care home other: pt currently at [facility] for physical therapy (02/11/22) Smoking Status: Former smoker quit date: 09/01/20 alcohol intake: never details: occasional substance use type: marijuana caffeine: Yes Type: carbonated beverages and coffee what type of physical activity do you participate in: none romero/religious: Rastafari seatbelt use: always do you feel safe at home: Yes ROS <ROBERT Luciano - Last Filed: 03/13/22 18:53> ROS ED ROS Narrative Constitutional: Negative for weight loss, weakness. Positive for fever and chills Eyes: Negative for vision loss, vision change, double vision ENT: Negative for any sore throat, ear pain, congestion Cardiovascular: Negative for any chest pain, tightness, palpitations, racing heartbeat Respiratory: Negative for any sputum production, hemoptysis, orthopnea. Positive for shortness of breath, cough, shortness of breath on exertion Gastrointestinal: Negative for any abdominal pain, nausea, vomiting, diarrhea, constipation, blood in stool, blood in vomit : Negative for any urinary frequency, incontinence, dysuria, retention, blood in urine Muscle skeletal: Negative for any muscle joint pain, stiffness, myalgias, arthralgias, neck pain, back pain Neurological: Negative for any headache, dizziness, syncope, numbness or tingling Skin: Negative for any rashes, lumps, itching, abrasions, lacerations Psychiatric: Negative for any depression, anxiety, stress, suicidal ideation, homicidal ideation Hematologic: Negative for any easy bruising, excessive bruising, easy bleeding Allergies: Negative for any eczema, hives, rash EXAM <ROBERT Luciano - Last Filed: 03/13/22 18:53> Physical Exam Narrative Exam Narrative: Vital signs reviewed. Patient is currently on 3 to 4 L of nasal cannula oxygen. This is new starting this last week. HEET: Head normocephalic atraumatic, TMs clear bilaterally. Posterior pharynx is clear, moist mucous membranes. Nares clear bilaterally. Neck: Supple with no lymphadenopathy or tenderness. No signs of meningismus, negative jolt sign. Cardiac: Regular rate and rhythm no murmurs gallops or rubs, equal peripheral pulses bilaterally. Respiratory: patient does have diminished breath sounds in the right lobe, patient's left lobe does have slight crackles in the bases. No chest tenderness. Abdomen: Soft, nontender, nondistended. No abdominal bruit or pulsatile masses. No hepatosplenomegaly Extremities: No peripheral edema, no signs of gross trauma or deformity. Active full range of motion of all extremities. Neuro: Cranial nerves II through XII intact, no focal neurological deficits. Skin: Clean dry and intact with no rash, purpura, petechiae, vesicles or pustules. Backslash flank: No CVA tenderness, no midline spinal tenderness, no deformity. Psych: Normal mood and affect. No SI, HI or acute psychosis. Const Vital Signs: 03/13/22 16:36 03/13/22 16:41 03/13/22 17:09 Temperature 97.3 F L 97.3 F L 97.8 F Temperature Source Temporal Temporal Oral Pulse Rate 85 85 86 Respiratory Rate 34 H 25 H 20 H Respiratory Effort Normal Respiratory Depth Normal Respiratory Pattern Normal Blood Pressure 129/87 H 129/87 H 112/77 Blood Pressure Mean 101 101 88 Pulse Ox 93 92 95 Oxygen Delivery Method Nasal Cannula Nasal Cannula Nasal Cannula Oxygen Flow Rate (L/min) 6 6 6 Fraction of Inspired Oxygen (FIO2) 100 03/13/22 17:20 03/13/22 17:36 Temperature Temperature Source Pulse Rate 95 Respiratory Rate 22 H Respiratory Effort Respiratory Depth Respiratory Pattern Tachypnea Blood Pressure Blood Pressure Mean Pulse Ox 96 Oxygen Delivery Method Nasal Cannula Oxygen Flow Rate (L/min) 6 Fraction of Inspired Oxygen (FIO2) 100 <Dr. Román Richards MD - Last Filed: 03/13/22 19:00> Physical Exam Const Vital Signs: 03/13/22 16:36 03/13/22 16:41 03/13/22 17:09 Temperature 97.3 F L 97.3 F L 97.8 F Temperature Source Temporal Temporal Oral Pulse Rate 85 85 86 Respiratory Rate 34 H 25 H 20 H Respiratory Effort Normal Respiratory Depth Normal Respiratory Pattern Normal Blood Pressure 129/87 H 129/87 H 112/77 Blood Pressure Mean 101 101 88 Pulse Ox 93 92 95 Oxygen Delivery Method Nasal Cannula Nasal Cannula Nasal Cannula Oxygen Flow Rate (L/min) 6 6 6 Fraction of Inspired Oxygen (FIO2) 100 03/13/22 17:20 03/13/22 17:36 Temperature Temperature Source Pulse Rate 95 Respiratory Rate 22 H Respiratory Effort Respiratory Depth Respiratory Pattern Tachypnea Blood Pressure Blood Pressure Mean Pulse Ox 96 Oxygen Delivery Method Nasal Cannula Oxygen Flow Rate (L/min) 6 Fraction of Inspired Oxygen (FIO2) 100 MDM <ROBERT Luciano - Last Filed: 03/13/22 18:53> [facility] MDM Narrative Medical decision making narrative: Patient arrives in mild respiratory distress, patient oxygen saturation is within normal limits on 3 to 4 L of nasal cannula oxygen. Patient did receive a full septic work-up secondary to his small cell carcinoma diagnosis as well as chemotherapy. 2 sets of blood cultures were drawn, patient was pancytopenic with a white blood count of 0.9, patient's absolute neutrophils were 0.5. Patient's chemistry shows slight renal disease with a creatinine of 1.6, this is baseline for the patient. Patient's lactic acid was negative. Patient did receive a chest x-ray, this was showed worsening pulmonary opacities with near total opacification of the right lung. Once the patient is taken off oxygen, he does desat into the mid to low 80s. Patient will need to be admitted to the hospital for pneumonia, hypoxia, pancytopenia, neutropenic fever. Patient is stable for admission. Patient was given cefepime to cover pneumonia. Lab Data Labs: Laboratory Results - last 24 hr 03/13/22 03/13/22 03/13/22 17:05 17:05 17:05 WBC 0.9 L* RBC 2.91 L Hgb 8.8 L Hct 27.5 L MCV 94.5 H MCH 30.2 MCHC 32.0 RDW Std Deviation 64.1 H RDW Coeff of Benjamin 18.6 H Plt Count 21 L* MPV 11.8 Immature Gran % (Auto) 2.400 H Neut % (Auto) 55.3 Lymph % (Auto) 28.2 [place] % (Auto) 12.9 H Eos % (Auto) 1.2 Baso % (Auto) 0.0 Absolute Neuts (auto) 0.5 L Absolute Lymphs (auto) 0.24 L Nucleated RBC % 0 Differential Comment Diff Path Review March foll PT 19.5 H INR 1.7 APTT 38.0 H Sodium 134 L Potassium 4.8 Chloride 104 Carbon Dioxide 26.0 Anion Gap 4 L BUN 34 H Creatinine 1.63 H Estim Creat Clear Calc 61.39 Est GFR (MDRD) Af Amer 56 L Est GFR (MDRD) Non-Af 47 L BUN/Creatinine Ratio 20.9 H Glucose 107 H Lactic Acid Calcium 8.9 Total Bilirubin 0.70 AST 20 ALT 22 Alkaline Phosphatase 44 L Total Protein 5.5 L Albumin 2.1 L Globulin 3.4 Albumin/Globulin Ratio 0.6 L 03/13/22 17:05 WBC RBC Hgb Hct MCV MCH MCHC RDW Std Deviation RDW Coeff of Benjamin Plt Count MPV Immature Gran % (Auto) Neut % (Auto) Lymph % (Auto) [place] % (Auto) Eos % (Auto) Baso % (Auto) Absolute Neuts (auto) Absolute Lymphs (auto) Nucleated RBC % Differential Comment Diff Path Review PT INR APTT Sodium Potassium Chloride Carbon Dioxide Anion Gap BUN Creatinine Estim Creat Clear Calc Est GFR (MDRD) Af Amer Est GFR (MDRD) Non-Af BUN/Creatinine Ratio Glucose Lactic Acid 1.0 Calcium Total Bilirubin AST ALT Alkaline Phosphatase Total Protein Albumin Globulin Albumin/Globulin Ratio Radiography Diagnostic Testing: Clinical Impression(s) from Imaging Studies Chest X-Ray 03/13/22 17:50 IMPRESSION: Worsening pulmonary opacities with near total opacification of the right lung. Electronically Signed: Giovani Yancey MD at 18:19 EDT , EKG Atrial fibrillation: Attestation: I personally reviewed and interpreted this EKG as follows: Comments: Atrial fibrillation rate of 89 bpm, patient history of QRS duration [address] elevation, no acute infarct noted <Dr. Román Richards MD - Last Filed: 03/13/22 19:00> MDM MDM Narrative Medical decision making narrative: Seen and evaluated independently and in conjunction with nurse practitioner. Agree with notes above unless documented otherwise. Patient states he has been getting more short of breath over the last for 5 days, hypoxic at the care home and placed on oxygen, but unknown details there. 84% on room air here, and that was after nebulizer treatments which helped his breathing some. His vital signs remained stable. He has crackles and rales in the right side. This is consistent with infiltrate seen on the right lung on chest x-ray. He is pancytopenic, febrile prior to arrival here, and neutropenic. Empiric antibiotics to cover pneumonia and neutropenia given, patient is stable for PCU will be admitted to the hospital. Lab Data Attestation: I reviewed the patient's lab results. Labs: Laboratory Results - last 24 hr 03/13/22 03/13/22 03/13/22 17:05 17:05 17:05 WBC 0.9 L* RBC 2.91 L Hgb 8.8 L Hct 27.5 L MCV 94.5 H MCH 30.2 MCHC 32.0 RDW Std Deviation 64.1 H RDW Coeff of Benjamin 18.6 H Plt Count 21 L* MPV 11.8 Immature Gran % (Auto) 2.400 H Neut % (Auto) 55.3 Lymph % (Auto) 28.2 [place] % (Auto) 12.9 H Eos % (Auto) 1.2 Baso % (Auto) 0.0 Absolute Neuts (auto) 0.5 L Absolute Lymphs (auto) 0.24 L Nucleated RBC % 0 Differential Comment Diff Path Review May foll PT 19.5 H INR 1.7 APTT 38.0 H Sodium 134 L Potassium 4.8 Chloride 104 Carbon Dioxide 26.0 Anion Gap 4 L BUN 34 H Creatinine 1.63 H Estim Creat Clear Calc 61.39 Est GFR (MDRD) Af Amer 56 L Est GFR (MDRD) Non-Af 47 L BUN/Creatinine Ratio 20.9 H Glucose 107 H Lactic Acid Calcium 8.9 Total Bilirubin 0.70 AST 20 ALT 22 Alkaline Phosphatase 44 L Total Protein 5.5 L Albumin 2.1 L Globulin 3.4 Albumin/Globulin Ratio 0.6 L 03/13/22 17:05 WBC RBC Hgb Hct MCV MCH MCHC RDW Std Deviation RDW Coeff of Benjamin Plt Count MPV Immature Gran % (Auto) Neut % (Auto) Lymph % (Auto) [place] % (Auto) Eos % (Auto) Baso % (Auto) Absolute Neuts (auto) Absolute Lymphs (auto) Nucleated RBC % Differential Comment Diff Path Review PT INR APTT Sodium Potassium Chloride Carbon Dioxide Anion Gap BUN Creatinine Estim Creat Clear Calc Est GFR (MDRD) Af Amer Est GFR (MDRD) Non-Af BUN/Creatinine Ratio Glucose Lactic Acid 1.0 Calcium Total Bilirubin AST ALT Alkaline Phosphatase Total Protein Albumin Globulin Albumin/Globulin Ratio Radiography Chest X-Ray - ED: 1 View, Read by ED Physician and Right Infiltrate Diagnostic Testing: Clinical Impression(s) from Imaging Studies Chest X-Ray 03/13/22 17:50 IMPRESSION: Worsening pulmonary opacities with near total opacification of the right lung. Electronically Signed: Giovani Yancey MD at 18:19 EDT , Rhythm Strip Rhythm Strip: A-fib Rate: 95 Ectopy: None EKG Initial EKG: Attestation: I personally reviewed and interpreted this EKG as follows: Interpretation: No Acute Injury Pattern and Atrial Fibrillation Prior EKG tracings: available for review Prior: Unchanged Discharge Plan Dx/Rx/DC Orders Clinical Impression: Neutropenic fever, Hypoxia, Pneumonia, Small cell lung cancer, right upper lobe, Longstanding persistent atrial fibrillation, Pancytopenia, Sepsis Disposition Disposition: Acute Care Hospital [facility]
--- NOTE | 2022-03-13 19:13 | PCM.HP.STD ---
HPI - General General Date of Admission: 03/13/22 HPI Narrative RONALDO ADAM, is a 56 M who presents with fever from the snf. He states that he has not been feeling well for about the last month and a half or so. He did just start up another round of chemotherapy based on response to his metastatic small cell lung cancer to previous chemotherapy. His last dose of chemo was on Thursday, and he is insurance no longer pays for any colony-stimulating factor and so his absolute neutrophil count today is 0.5 with a fever max of 101. He was also found to be hypoxic and desatted down to 84% on room air in the ER per the ED physician's note. There is no obvious sign of infection at this time, he does have a chronic right pleural effusion that has been drained fairly frequently but cytology is always come back negative. There could be a pneumonia. UA is pending. [facility] Medical History (Updated 03/13/22 @ 19:[address] Soham Peace MD) Abnormal PET scan of colon Acute on chronic diastolic CHF (congestive heart failure) Acute respiratory failure with hypoxia Adrenal nodule Anxiety and depression Asthma, moderate persistent Atrial fibrillation Atrial fibrillation with rapid ventricular response BiPAP (biphasic positive airway pressure) dependence Bipolar disorder Borderline type 2 diabetes mellitus Chemotherapy induced neutropenia Chronic respiratory failure CINV (chemotherapy-induced nausea and vomiting) Consolidation of right lower lobe of lung Dyspnea Encounter for education Encounter for education Essential (primary) hypertension Fatigue Hallucination Hallucinations, visual History of lung cancer Hyperlipidemia Hypokalemia Liver metastasis Longstanding persistent atrial fibrillation Lung cancer Marijuana abuse Migraines Nausea Nausea & vomiting Nicotine dependence Nocturia Obesity Oral candidiasis ALEX (obstructive sleep apnea) Pancytopenia due to chemotherapy Pleural effusion, right Radiation dermatitis Rectal abnormality Rectal pain Regional lymph node metastasis present Smoker 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 classification Home Medications albuterol sulfate 90 mcg/actuation breath activated powder inhaler 2 inh INHALATION Q4H PRN PRN #1 each 01/21/21 [Rx Last Taken 08/13/21] pravastatin 40 mg tablet 40 mg PO DINNER #90 tablet 05/02/21 [Rx Last Taken 08/12/21] cholecalciferol (vitamin D3) 1,250 mcg PO TH 06/05/21 [History Last Taken 08/10/21] Disability Placard #1 ea 06/20/21 [Rx Last Taken Unknown] pantoprazole 40 mg tablet,delayed release 40 mg PO DAILY #30 tab 07/15/21 [Rx Last Taken 08/13/21] fluoxetine 20 mg capsule 60 mg PO DAILY #270 cap 07/30/21 [Rx Last Taken 08/13/21] fluticasone propionate 50 mcg/actuation nasal spray,suspension 2 spray NASAL DAILY PRN PRN #16 g 09/18/21 [Rx Last Taken Unknown] acetaminophen 500 mg tablet 500 mg PO BID PRN PRN tab 11/14/21 [History Last Taken Unknown] tiotropium bromide 2.5 mcg/actuation mist for inhalation 2 puff INHALATION DAILY #4 gm 01/16/22 [Rx Last Taken Unknown] prochlorperazine maleate 10 mg tablet 10 mg PO Q6H PRN #30 tab 01/21/22 [Rx Last Taken Unknown] amiodarone 200 mg PO DAILY 02/02/22 [History Last Taken Unknown] polyethylene glycol 3350 [Miralax] 17 g PO BID 02/02/22 [History Last Taken Unknown] loratadine [Claritin] 10 mg PO DAILY PRN #0 tab 02/04/22 [Rx Last Taken Unknown] metoprolol tartrate 100 mg PO BID #0 tab 02/04/22 [Rx Last Taken Unknown] rivaroxaban 20 mg PO QDAY #30 tablet 02/04/22 [Rx Last Taken 08/12/21] MAGIC MOUTH WASH (BMX) 15 ml PO Q4H PRN PRN #180 ml 02/11/22 [Rx Last Taken Unknown] guaifenesin 100 mg/5 mL oral liquid 200 mg PO Q4H PRN 02/11/22 [History Last Taken Unknown] lorazepam 0.5 mg tablet 0.5 mg PO TID PRN 02/11/22 [History Last Taken Unknown] oxycodone 5 mg tablet 5 mg PO Q8H PRN 02/11/22 [History Last Taken Unknown] acetaminophen 650 mg PO Q4H PRN 03/13/22 [History Last Taken Unknown] acetaminophen 650 mg KS Q4H PRN 03/13/22 [History Last Taken Unknown] aluminum-magnesium hydroxide [Antacid] 30 ml PO Q4H PRN PRN 03/13/22 [History Last Taken Unknown] bisacodyl 10 mg KS DAILY PRN 03/13/22 [History Last Taken Unknown] dextrose [Glucose Gel] 10 g PO Q15M PRN 03/13/22 [History Last Taken Unknown] doxazosin 2 mg PO QHS 03/13/22 [History Last Taken Unknown] fluticasone furoate-vilanterol [Breo Ellipta] 1 inh INHALATION DAILY 03/13/22 [History Last Taken Unknown] glucagon [Glucagon Emergency Kit] 1 mg IM PRN PRN 03/13/22 [History Last Taken Unknown] lidocaine 1 applic TOPICAL PRN PRN 03/13/22 [History Last Taken Unknown] metoclopramide HCl 5 mg PO Q6H PRN PRN 03/13/22 [History Last Taken Unknown] ondansetron HCl [Zofran] 4 mg PO DAILY 03/13/22 [History Last Taken Unknown] potassium chloride 20 meq PO DAILY 03/13/22 [History Last Taken Unknown] sodium phosphates [Fleet Enema] 118 ml KS DAILY PRN 03/13/22 [History Last Taken Unknown] Allergy/AdvReac Type Severity Reaction Status Date / Time atezolizumab AdvReac Severe Pneumonia Verified 03/13/22 16:43 pioglitazone HCl [From Actos] AdvReac Severe Other Verified 03/13/22 16:43 Family History Father CAD (coronary artery disease) Hx CABG Family history of hypertension Family history of hyperlipidemia Hypertension CVA (cerebral vascular accident) Mother , Age 55 Sudden cardiac Family history of hypertension Sister Family history of hypertension Family history of hyperlipidemia Diabetes Grandfather CVA (cerebral vascular accident) Grandmother CVA (cerebral vascular accident) Uncle Lung cancer Surgical History History of cardioversion (03/2016) History of stomach ulcers History of thoracentesis (01/2020) History of tonsillectomy Pilonidal cyst (~1986) PORT PLACEMENT Social History housing: snf other: pt currently at [facility] for physical therapy (02/11/22) Smoking Status: Former smoker quit date: 09/01/20 alcohol intake: never details: occasional substance use type: marijuana caffeine: Yes Type: carbonated beverages and coffee what type of physical activity do you participate in: none romero/church: [employer]ab[employer] seatbelt use: always do you feel safe at home: Yes ROS Constitutional Constitutional: Reports chills, fatigue, fever(s) and malaise Eyes Eyes: Denies blurry vision ENT HEENT: Denies headache(s) or nasal discharge Cardiovascular Cardiovascular: Reports dyspnea on exertion; Denies chest pain or syncope Respiratory/Chest Respiratory/Chest: Reports shortness of breath at rest; Denies cough or shortness of breath with exertion Gastrointestinal Gastrointestinal: Denies constipation, diarrhea, nausea or vomiting Genitourinary Genitourinary: Denies dysuria Neurologic Neurologic: Denies focal weakness, numbness or tremor(s) Psychiatric Psychiatric: Denies anxiety or depression Vital Signs Vital Signs Vital Signs: 03/13/22 16:36 03/13/22 16:41 03/13/22 17:09 Temperature 97.3 F L 97.3 F L 97.8 F Temperature Source Temporal Temporal Oral Pulse Rate 85 85 86 Respiratory Rate 34 H 25 H 20 H Respiratory Effort Normal Respiratory Depth Normal Respiratory Pattern Normal Blood Pressure 129/87 H 129/87 H 112/77 Blood Pressure Mean 101 101 88 Pulse Ox 93 92 95 Oxygen Delivery Method Nasal Cannula Nasal Cannula Nasal Cannula Oxygen Flow Rate (L/min) 6 6 6 Fraction of Inspired Oxygen (FIO2) 100 03/13/22 17:20 03/13/22 17:36 03/13/22 18:50 Temperature 97.9 F Temperature Source Temporal Pulse Rate 95 125 H Respiratory Rate 22 H 24 H Respiratory Effort Respiratory Depth Respiratory Pattern Tachypnea Blood Pressure 136/88 H Blood Pressure Mean 104 Pulse Ox 96 93 Oxygen Delivery Method Nasal Cannula Non-Rebreather Oxygen Flow Rate (L/min) 6 7 Fraction of Inspired Oxygen (FIO2) 100 100 Weight Weight: 246 lb 14.684 oz Body Mass Index (BMI) 30.0 Physical Exam Const alert and oriented x3 General Appearance: cooperative HEENT normocephalic Mouth: dry mucous membranes Eyes PERRL, EOMs intact bilaterally and conjunctivae normal Neck supple and no JVD Resp normal respiratory effort, no retractions and no use of accessory muscles Auscultation: diminished lung sounds bilateral (Right greater than left); Negative for crackles, rales, rhonchi or wheezes Cardio regular rhythm, S1 normal heart sound, S2 normal heart sound and no murmurs Rate: tachycardic GI soft to palpation, non-tender and non-distended; Negative for hepatosplenomegaly Extremity no clubbing, cyanosis or edema Skin no rashes or lesions noted Neuro no focal motor deficits and no sensory deficits noted Psych Appearance: appropriate Mood & Affect: flat affect Results Lab / Micro Data Result Diagrams: 03/13/22 17:05 03/13/22 17:05 Labs: Laboratory Results - last 24 hr 03/13/22 17:05: WBC 0.9 L*, RBC 2.91 L, Hgb 8.8 L, Hct 27.5 L, MCV 94.5 H, MCH 30.2, MCHC 32.0, RDW Std Deviation 64.1 H, RDW Coeff of Benjamin 18.6 H, Plt Count 21 L*, MPV 11.8, Immature Gran % (Auto) 2.400 H, Neut % (Auto) 55.3, Lymph % (Auto) 28.2, [place] % (Auto) 12.9 H, Eos % (Auto) 1.2, Baso % (Auto) 0.0, Absolute Neuts (auto) 0.5 L, Absolute Lymphs (auto) 0.24 L, Nucleated RBC % 0, Differential Comment , Diff Path Review March03/13/22 17:05: PT 19.5 H, INR 1.7, APTT 38.0 H 03/13/22 17:05: Sodium 134 L, Potassium 4.8, Chloride 104, Carbon Dioxide 26.0, Anion Gap 4 L, BUN 34 H, Creatinine 1.63 H, Estim Creat Clear Calc 61.39, Est GFR (MDRD) Af Amer 56 L, Est GFR (MDRD) Non-Af 47 L, BUN/Creatinine Ratio 20.9 H, Glucose 107 H, Calcium 8.9, Total Bilirubin 0.70, AST 20, ALT 22, Alkaline Phosphatase 44 L, Total Protein 5.5 L, Albumin 2.1 L, Globulin 3.4, Albumin/Globulin Ratio 0.6 L 03/13/22 17:05: Lactic Acid 1.0 Micro: Microbiology 03/13/22 17:43 Nasal Secretion SARS-CoV-2 & FLU Antigen (Rapid) - Final Rhythm Strip Rhythm Strip: A-fib Rate: 95 Ectopy: None Radiology Impression Chest X-Ray 03/13/22 17:50 IMPRESSION: Worsening pulmonary opacities with near total opacification of the right lung. Electronically Signed: Giovani Yancey MD at 18:19 EDT , Assessment & Plan Assessment/Plan (1) Neutropenic fever: (2) Acute respiratory failure with hypoxia: PLAN: 1. Acute hypoxic respiratory failure and neutropenic fever secondary to possible right-sided pneumonia ?He does have history of multiple pleural effusions needing thoracentesis ?We will hold his Xarelto in case we need to repeat this in the near future ?In discussion with his oncologist, he is also had significant radiation and therefore pulmonary fibrosis so he has had intermittent oxygen requirements in the past as well however he states that he was just recently put on oxygen for comfort and in the ER when we took off his oxygen he desatted to 84% very quickly. ?We will continue with Granix every day until his absolute neutrophil count is greater than throughout the system for 3 days in a row ?Continue with cefepime and gentle IV fluids ?UA is pending, will also obtain sputum culture and blood cultures are pending 2. Stage IV non-small cell lung cancer with mets to the liver/COPD without exacerbation ?She has 4 more cycles of chemotherapy, he states that his cancers have shrunk with the chemotherapy ?They are aware that this is palliative and not curative ?Per his history, with antibiotics he does have a low threshold for developing thrush therefore may need a nystatin in the near future with antibiotics ?Continue with his home inhalers 3. HTN/HLD/chronic diastolic CHF/A. fib ?Blood pressure stable ?Continue with his home blood pressure medications and statin ?Will hold Xarelto if he may need a possible thoracentesis given his hypoxia 4. Anxiety/depression ?Stable ?Continue with Ativan and Prozac 5. GERD ?Stable ?Continue with PPI DVT: SCDs Charges/Coding Visit Charges Inpatient E&M: 95353 Init Hosp L3
[2022-03-13 20:43] LABS: Bacteria 0 SEEN /hpf (None Seen); Mucous, Urine 0 SEEN /hpf (<or=2+)
[2022-03-13 20:45] LABS: Color, Urine Yellow (Yellow); Glucose, Dipstick Normal (Normal); Ketone-Dipstick 5 mg/dl (Negative); Leukocyte Esterase-Dipstick 25 /ul (Negative); Nitrite-Dipstick Negative (Negative); Occult Blood-Urine 10 /ul (Negative); Protein-Dipstick 15 mg/dl (Negative); Specific Gravity, Urine 1.015 (1.002-1.030); Urine Clarity Sl. Cloudy (Clear); Urine Urobilinogen 4 mg/dl (Normal)
[2022-03-13 20:47] LABS: Urine Bilirubin Dipstick 1 mg/dL (Negative)
[2022-03-13 20:51] LABS: Red Blood Cells-Urine 0-5 SEEN /hpf (0-5); Squamous Epithelial Cells - UA 0-5 SEEN /hpf (0-5); White Blood Cells 0-5 SEEN /hpf (0-5)
[2022-03-13] MEDS: 0.9% Normal Saline 1,000 ML 100 ML IV (21:05)
[2022-03-13] MEDS: LORazepam 0.5 MG Tablet PO (21:58)
[2022-03-13] MEDS: TBO-FILGRASTIM 480 MCG/0.8 ML ML SC (21:58)
[2022-03-13] MEDS: Metoprolol Tartrate 100 MG Tablet PO (21:59)
[2022-03-13] MEDS: Menthol/Lanolin/Calamine/Znox 113 GM Tube 1 APPLIC TOPICAL (21:59)
[2022-03-13] MEDS: Doxazosin 1 MG Tablet 2 MG PO (21:59)
[2022-03-13] MEDS: oxyCODONE 5 MG Tablet PO (21:59)
[2022-03-14] VITALS (17 sets, daily range): BP systolic 98–117; BP diastolic 50–100; PULSE 71–106; RESP 18–22; TEMP 36.4–36.8; O2SAT 96–100
[2022-03-14] MEDS: Ondansetron 4 MG/2 ML Vial IV ×3 (01:57→23:59)
--- NOTE | 2022-03-14 01:58 | PCM.PN.BLA ---
Progress Note Nurse reports of patient feeling short of breath and having crackles throughout examination. Patient continues to be on 5 L nasal cannula oxygen and oxygen saturation 97%. Nurse Stopped IV fluids. Order to discontinue IV fluids placed.
[2022-03-14] MEDS: 0.9% Saline Lock 10 ML Syringe IV ×2 (01:59→11:28)
[2022-03-14 05:56] LABS: Absolute Lymphocyte Count 0.13 X10^3/uL (0.83-4.51); Absolute Neutrophil Count 0.3 X10^3/uL (2.0-7.7); Eosinophil# 0.01 X10^3/uL; Eosinophils% 1.9 % (0-5); Hematocrit 27.4 % (40-54); Lymphocyte # 0.13 X10^3/ul (0.83-4.51); Mean Corp Hgb Conc 32.8 g/dL (32-36); Mean Corpuscular Hgb 30.2 pg (27.0-32.0); Mean Corpuscular Volume 91.9 fL (80-94); Mean Platelet Vol. 11.4 fl (6.2-12.0); Monocyte% 19.2 % (0-10); NRBC Flagged by Analyzer 17.3 % (0-5); Neutrophil # 0.28 X10^3/uL (2.7-7.7); Neutrophil % 53.9 % (47-70); POSITIVE COUNT YES; POSITIVE DIFFERENTIAL YES; POSITIVE MORPHOLOGY YES; RBC Distribution Width CV 18.2 % (11.6-14.6); RBC Distribution Width SD 60.5 fl (35.1-43.9); Red Blood Count 2.98 M/mm3 (4.6-6.2)
[2022-03-14] MEDS: Metoclopramide 5 MG TABLET PO (05:58)
[2022-03-14 06:08] LABS: Differential Indicated SCAN CRITERIA MET; Platelet Count 17 K/mm3 (150-450); White Blood Count 0.5 K/mm3 (4.4-11.0)
[2022-03-14 06:19] LABS: Anisocytosis 1+; Differential Comment SCANNED; Microcytosis 1+; Platelet Estimate MKD DEC (ADEQ)
[2022-03-14 06:22] LABS: Anion Gap 3 (5-15); BUN 35 mg/dL (7-18); BUN/Creat Ratio 21.5 RATIO (10-20); Calcium,Total 8.7 mg/dL (8.5-10.1); Chloride 106 mmol/L (98-107); Creatinine, Serum 1.63 mg/dL (0.70-1.30); EST Glomerular Filtration Rate 47 mL/min (>60); Est Glom Filt Rate - Afr Amer 56 mL/min (>60); Estimated Creatinine Clearance 61.39 ml/min; Glucose 103 mg/dL (74-106); Potassium 4.7 mmol/L (3.5-5.1); Sodium Level 134 mmol/L (136-145)
[2022-03-14] MEDS: Budesonide Respules 0.5 MG/2 ML AMPUL.NEB. INHALATION ×2 (06:31→20:17)
[2022-03-14] MEDS: Albuterol 2.5 MG/3 ML VIAL.NEB. INHALATION (06:31)
[2022-03-14] MEDS: Menthol/Lanolin/Calamine/Znox 113 GM Tube 1 APPLIC TOPICAL ×2 (09:03→21:55)
[2022-03-14] MEDS: Amiodarone 200 MG Tablet PO (09:05)
[2022-03-14] MEDS: Polyethylene Glycol 3350 17 GM PACKET PO (09:05)
[2022-03-14] MEDS: Metoprolol Tartrate 100 MG Tablet PO ×2 (09:05→21:56)
[2022-03-14] MEDS: TBO-FILGRASTIM 480 MCG/0.8 ML ML SC (09:06)
[2022-03-14] MEDS: FLUoxetine 20 MG Capsule 60 MG PO (09:07)
[2022-03-14] MEDS: Pantoprazole Sodium 40 MG Tablet PO (09:08)
--- NOTE | 2022-03-14 09:23 | CASEMGMT ---
Addendum entered by Letha Quevedo 03/14/22 10:49: CLAIRE confirmed with patient's sister Emily that the plan is to return to [facility]. Patient is somewhat confused per RN. Plan: d/c back to [facility] under skilled level of care. Patient will require insurance authorization to return. Letha MAYER Original Note: CLAIRE called [facility] and spoke with Edyta. Patient will need insurance authorization in order to return to [facility]. CLAIRE will send updates. CLAIRE will also verify with patient and/or family that the plan is to return to [facility]. Letha Quevedo SUPERVISOR BEEHIVE KILNTerry MAYER
--- NOTE | 2022-03-14 09:24 | PCM.RX.CS ---
Consult Pharmacy has been consulted to manage selected antiobiotic: Vancomycin Type of Consult: New start Suspected Infection: Pneumonia, Other - NEUTROPENIC FEVER Labs: Sodium 134 mmol/L (136-145) L 03/14/22 05:16 Potassium 4.7 mmol/L (3.5-5.1) 03/14/22 05:16 Chloride 106 mmol/L (98-107) 03/14/22 05:16 Carbon Dioxide 25.0 mmol/L (21.0-32.0) 03/14/22 05:16 Anion Gap 3 (5-15) L 03/14/22 05:16 BUN 35 mg/dL (7-18) H 03/14/22 05:16 Creatinine 1.63 mg/dL (0.70-1.30) H 03/14/22 05:16 Est GFR (MDRD) Af Amer 56 mL/min (>60) L 03/14/22 05:16 Est GFR (MDRD) Non-Af 47 mL/min (>60) L 03/14/22 05:16 BUN/Creatinine Ratio 21.5 RATIO (10-20) H 03/14/22 05:16 Glucose 103 mg/dL (74-106) 03/14/22 05:16 Microbiology: Microbiology 03/13/22 17:43 Nasal Secretion SARS-CoV-2 & FLU Antigen (Rapid) - Final Goal Trough: 15-20 mcg/mL Pharmacy Plan for Drug Dosing: NEW START IV VANCOMYCIN Consulting Physician: INDY Indication: NEUTROPENIC FEVER/PNEUMONIA Goal Trough: 15-20 MG/DL SrCr: 1.63 MG/DL CrCl: 61.4 ML/MIN Comments: LOADING DOSE OF 2000MG X1 GIVEN 03/14 @ 0857 Vancomycin Dose: START 1250MG Q12 AND GET A TROUGH PRIOR TO 4TH TOTAL DOSE OF REGIMEN PER POLICY. Pending Level: 03/15/22 @ 2029 Pharmacy Service will continue to monitor and adjust dosing as required.
--- NOTE | 2022-03-14 10:22 | PN.HOSP_ITS ---
Documented by User: Cosmo PACK 03/14/22 10:43 Subjective Subjective Patient is a 56-year-old male sitting in a chair, alert and orient x3. Patient appears uncomfortable and is leaning over in bed reports that he is still short of breath, although is not compliant with nasal cannula. Does not appear in acute distress. Objective Data Objective Data Vital Signs: Vital Signs Temp Pulse Resp BP Pulse Ox 97.6 F L 73 18 117/100 H 96 03/14/22 08:50 03/14/22 09:05 03/14/22 08:50 03/14/22 09:05 03/14/22 08:50 Oxygen Flow Rate (L/min) 2 Oxygen Delivery Method Nasal Cannula Weight: 232 lb 12.93 oz Body Mass Index (BMI) 28.3 Intake & Output: Intake and Output for Last 24 Hours 03/12/22 03/13/22 03/14/22 23:59 23:59 23:59 Intake Total 320 / 320 578.33 / 578.33 Output Total 200 / 200 150 / 150 Balance 120 / 120 428.33 / 428.33 Lab / Micro Data Result Diagrams: 03/14/22 05:16 03/14/22 05:16 Labs: Laboratory Results - last 24 hr 03/13/22 17:05: WBC 0.9 L*, RBC 2.91 L, Hgb 8.8 L, Hct 27.5 L, MCV 94.5 H, MCH 30.2, MCHC 32.0, RDW Std Deviation 64.1 H, RDW Coeff of Benjamin 18.6 H, Plt Count 21 L*, MPV 11.8, Immature Gran % (Auto) 2.400 H, Neut % (Auto) 55.3, Lymph % (Auto) 28.2, Bacon % (Auto) 12.9 H, Eos % (Auto) 1.2, Baso % (Auto) 0.0, Absolute Neuts (auto) 0.5 L, Absolute Lymphs (auto) 0.24 L, Nucleated RBC % 0, Differential Comment , Diff Path Review March03/13/22 17:05: PT 19.5 H, INR 1.7, APTT 38.0 H 03/13/22 17:05: Sodium 134 L, Potassium 4.8, Chloride 104, Carbon Dioxide 26.0, Anion Gap 4 L, BUN 34 H, Creatinine 1.63 H, Estim Creat Clear Calc 61.39, Est GFR (MDRD) Af Amer 56 L, Est GFR (MDRD) Non-Af 47 L, BUN/Creatinine Ratio 20.9 H , Glucose 107 H, Calcium 8.9, Total Bilirubin 0.70, AST 20, ALT 22, Alkaline Phosphatase 44 L, Total Protein 5.5 L, Albumin 2.1 L, Globulin 3.4, Albumin/Globulin Ratio 0.6 L 03/13/22 17:05: Lactic Acid 1.0 03/13/22 20:20: Urine Color Yellow, Urine Clarity Sl. Cloudy, Urine pH 5.0, Ur Specific [place] 1.015, Urine Protein 15 H, Urine Glucose (UA) Normal, Urine Ketones 5 H, Urine Occult Blood 10 H, Urine Nitrite Negative, Urine Bilirubin 1 H, Urine Urobilinogen 4 H, Ur Leukocyte Esterase 25 H, Urine RBC 0-5 SEEN, Urine WBC 0-5 SEEN, Ur Squamous Epith Cells 0-5 SEEN, Urine Bacteria 0 SEEN, Urine Mucus 0 SEEN 03/14/22 05:16: Sodium 134 L, Potassium 4.7, Chloride 106, Carbon Dioxide 25.0, Anion Gap 3 L, BUN 35 H, Creatinine 1.63 H, Estim Creat Clear Calc 61.39, Est GFR (MDRD) Af Amer 56 L, Est GFR (MDRD) Non-Af 47 L, BUN/Creatinine Ratio 21.5 H , Glucose 103, Calcium 8.7 03/14/22 05:16: WBC 0.5 L*, RBC 2.98 L, Hgb 9.0 L, Hct 27.4 L, MCV 91.9, MCH 30.2, MCHC 32.8, RDW Std Deviation 60.5 H, RDW Coeff of Benjamin 18.2 H, Plt Count 17 L*, MPV 11.4, Immature Gran % (Auto) 0.000, Neut % (Auto) 53.9, Lymph % (Auto) 25.0, Bacon % (Auto) 19.2 H, Eos % (Auto) 1.9, Baso % (Auto) 0.0, Absolute Neuts (auto) 0.3 L, Absolute Lymphs (auto) 0.13 L, Nucleated RBC % 17.3 H, Differential Comment SCANNED, Diff Path Review Vanna bocanegra Platelet Estimate MKD DEC, Anisocytosis 1+, Microcytosis 1+ Micro: Microbiology 03/13/22 17:43 Nasal Secretion SARS-CoV-2 & FLU Antigen (Rapid) - Final Radiography Diagnostic Testing: Radiology Impression Chest X-Ray 03/13/22 17:50 IMPRESSION: Worsening pulmonary opacities with near total opacification of the right lung. Electronically Signed: Giovani Yancey MD at 18:19 EDT , Rhythm Strip Rhythm Strip: A-fib Rate: 95 Ectopy: None Physical Exam Const alert and oriented x3 Orientation / Consciousness: lethargic HEENT head/scalp atraumatic and moist oral mucous membranes Head and Scalp: normocephalic Eyes PERRL, EOMs intact bilaterally and conjunctivae normal Neck no lymphadenopathy, supple and no JVD Resp normal respiratory effort, normal air movement and no retractions Auscultation: diminished lung sounds Cardio regular rate, regular rhythm and no JVD GI normal to inspection, nondistended, normoactive bowel sounds Extremity normal to inspection Skin no rashes or lesions noted, no wounds and skin turgor normal Neuro CN's II-XII intact bilaterally Psych affect normal Assessment & Plan Assessment/Plan (1) Pancytopenia: (2) Pneumonia: (3) Neutropenic fever: (4) Acute respiratory failure with hypoxia: PLAN: Day 1 Discharge planning: To be determined. 1) acute hypoxic respiratory failure secondary to possible right-sided HAP Patient [facility] the [facility] a [facility]. Currently satting 96% on 2 L via nasal cannula, which is patient baseline. Rapid Covid is negative, blood culture and urine culture pending. We will continue cefepime and vancomycin and de-escalate based off of sensitivities, hold Xarelto in preparation for possible thoracentesis, monitor for thrush. 2) neutropenic fever Continue Granix and monitor neutrophil count. 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 On chemotherapy, follows with Dr. Johnson. 4) atrial fibrillation On metoprolol and amiodarone for rate/rhythm control. Patient is anticoagulated on Xarelto. Continue metoprolol and amiodarone, hold Xarelto as above. 5) HTN Blood pressure stable, continue metoprolol. 6) chronic diastolic CHF Does not appear to be in acute exacerbation. Most recent echocardiogram from May 2021 shows normal LV systolic function and an EF of 55%. 7) depression/anxiety Continue Ativan and Prozac. 8) GERD Continue PPI. DVT prophylaxis - SCD's, home Xarelto on hold as above. Patient seen by Cosmo Mane PA-C, under the supervision of Dr. Broussard. Time spent on patient care: 10 minutes. Documented by User: Dr. Fredi Broussard, DO 03/14/22 12:09 Subjective Subjective Wants another bed as his current one is to fancy. Coughing, but non-productive. Objective Data Lab / Micro Data Result Diagrams: 03/14/22 05:16 03/14/22 05:16 Physical Exam Const alert and no apparent distress HEENT head/scalp atraumatic Head and Scalp: normocephalic Resp normal respiratory effort Resp Narrative: diminished on right. Cardio regular rate, regular rhythm, S1 normal heart sound and S2 normal heart sound GI normal to inspection, nondistended, normoactive bowel sounds, soft to palpation, non-tender and non-distended Extremity normal to inspection Skin no rashes or lesions noted Neuro Sensorium / Orientation: awake and alert Assessment & Plan Assessment/Plan (1) Pneumonia: (2) Neutropenic fever: PLAN: Patient seen and examined independently. Data and vitals reviewed. I agree with the above note by the physician physical therapy assistant instructor. 1. Suspected gram-negative pneumonia Patient started on cefepime but given the patient's recent hospitalizations and neutropenia, will also add vancomycin. Pulmonary toilet Check sputum culture. Check urinary antigens for Streptococcus and Legionella. 2. Neutropenic fever Secondary to pneumonia Continue with antibiotics as above and follow-up cultures. Continue with Granix and continue until ANC greater than 1000/mm3 for 3 consecutive days 3. Stage IV small cell lung cancer Follow-up with oncology as outpatient. Patient undergoing palliative chemotherapy. 4. Right-sided pleural effusion Reviewed imaging. Not significantly increased from December 03 of this year. Last thoracentesis was from May of last year and was exudative in appearance based on the LVH wound. Likely due to malignancy. Hold off on any repeat thoracentesis at this point in time. 5. Acute hypoxic respiratory failure Likely multifactorial: Due to the patient's underlying lung cancer, pleural effusion, possible radiation pneumonitis and overlying pneumonia. Patient dropped down to 84% on room air. Wean oxygen as tolerated Pulmonary toilet as above 6. Atrial fibrillation Currently rate controlled Continue with amiodarone and metoprolol tartrate Rivaroxaban initially held in the chance the patient may require a thoracentesis. Being that we feel that thoracentesis medially necessary, will resume the rivaroxaban. 7. DVT prophylaxis: Not indicated patient is already on rivaroxaban. Greater than 30 minutes of which greater than 50% of time was discussing with the patient about pneumonia, neutropenia, cancer. Also spent time discussed with patient that there would not be any additional beds available for him other than what is provided. Did tell him that his very likely he had the same type of bed when he was in the hospital previously. Did talk to patient that we could possibly get him into the chair he seemed agreeable to that. Charges/Coding Visit Charges Inpatient E&M: 98422 Subs Hosp L3
--- NOTE | 2022-03-14 11:32 | CASEMGMT ---
Updates faxed to [facility]. Letha Quevedo DIGITAL DIRECTOR [employer]DER [employer]IX[employer]
[2022-03-14 12:34] LABS: Pathologist Review Reviewed
[2022-03-14 12:35] LABS: Pathologist Review Reviewed
[2022-03-14] MEDS: Ipratropium/Albuterol Sulfate 3 ML AMPUL.NEB INHALATION ×2 (13:04→20:17)
--- NOTE | 2022-03-14 14:51 | CHAPLAIN ---
Type of Pastoral Visit _x__ Initial Visit ___ Follow-up Visit ___ On-call Visit ___ General Patient Visit ___ Spiritual Assessment ___ Family Conference ___ Bereavement ___ Rapid Response ___ Code Blue ___ Other (describe below) Pastoral Care Referral From _x__ Patient ___ Family ___ Nurse ___ Physician ___ Guest Service Host ___ Flight Surgeon ___ Other (describe below) Sacrament/Intervention _x__ Active listening ___ Anointing ___ Mosque ___ Bereavement ___ Communion ___ Tila exploration ___ ___ Life review ___ Prayer ___ Reconciliation ___ Sacrament of Sick _x__ Supportive presence ___ Wedding ___ Other (describe below) Pastoral Comments patient talks about dying and seeks support and prayer
[2022-03-14] MEDS: Pravastatin 40 MG Tablet PO (15:49)
[2022-03-14] MEDS: Acetaminophen 325 MG Tablet 650 MG PO (15:49)
[2022-03-14] MEDS: Rivaroxaban 20 MG Tablet PO (15:49)
[2022-03-14] MEDS: oxyCODONE 5 MG Tablet PO (15:50)
[2022-03-14] MEDS: Doxazosin 1 MG Tablet 2 MG PO (21:56)
[2022-03-15] VITALS (15 sets, daily range): BP systolic 100–133; BP diastolic 65–92; PULSE 63–101; RESP 16–20; TEMP 36.1–36.7; O2SAT 87–99
[2022-03-15 04:37] LABS: Absolute Neutrophil Count 0.4 X10^3/uL (2.0-7.7); Eosinophil# 0.01 X10^3/uL; Eosinophils% 1.4 % (0-5); Hematocrit 24.4 % (40-54); Hemoglobin 8.3 g/dL (13.0-16.5); Mean Corpuscular Hgb 30.5 pg (27.0-32.0); Mean Corpuscular Volume 89.7 fL (80-94); Mean Platelet Vol. 11.6 fl (6.2-12.0); Monocyte# 0.11 X10^3/uL; Monocyte% 15.9 % (0-10); NRBC Flagged by Analyzer 0 % (0-5); Neutrophil # 0.37 X10^3/uL (2.7-7.7); Neutrophil % 53.7 % (47-70); POSITIVE COUNT YES; POSITIVE DIFFERENTIAL YES; POSITIVE MORPHOLOGY YES; RBC Distribution Width CV 18.4 % (11.6-14.6); RBC Distribution Width SD 59.7 fl (35.1-43.9); Red Blood Count 2.72 M/mm3 (4.6-6.2)
[2022-03-15 04:45] LABS: Differential Indicated SCAN CRITERIA MET; Platelet Count 16 K/mm3 (150-450); White Blood Count 0.7 K/mm3 (4.4-11.0)
[2022-03-15 05:02] LABS: Anisocytosis 1+; Differential Comment SCANNED; Macrocytosis RARE; Microcytosis 1+
[2022-03-15 05:18] LABS: ALB/GLOB Ratio 0.5 RATIO (0.9-2.4); AST(SGOT) 14 U/L (15-37); Alanine Aminotransfer ALT/SGPT 19 U/L (16-61); Albumin, Serum 1.8 g/dL (3.2-5.0); Alkaline Phosphatase 37 U/L (45-117); Anion Gap 6 (5-15); BUN 34 mg/dL (7-18); BUN/Creat Ratio 22.1 RATIO (10-20); Calcium,Total 8.2 mg/dL (8.5-10.1); Chloride 107 mmol/L (98-107); Creatinine, Serum 1.54 mg/dL (0.70-1.30); EST Glomerular Filtration Rate 50 mL/min (>60); Est Glom Filt Rate - Afr Amer 60 mL/min (>60); Estimated Creatinine Clearance 64.97 ml/min; Globulin 3.4 g/dL (2.2-4.2); Glucose 93 mg/dL (74-106); Potassium 4.3 mmol/L (3.5-5.1); Protein, Total 5.2 g/dL (6.4-8.2); Sodium Level 134 mmol/L (136-145)
[2022-03-15] MEDS: Ipratropium/Albuterol Sulfate 3 ML AMPUL.NEB INHALATION ×3 (06:57→19:10)
[2022-03-15] MEDS: Budesonide Respules 0.5 MG/2 ML AMPUL.NEB. INHALATION ×2 (06:58→19:10)
--- NOTE | 2022-03-15 07:53 | CPS ---
pt increased to 3 lpm. Saturation to 95%. Nurse aware of changes.
[2022-03-15] MEDS: Polyethylene Glycol 3350 17 GM PACKET PO (09:41)
[2022-03-15] MEDS: Amiodarone 200 MG Tablet PO (09:41)
[2022-03-15] MEDS: Metoprolol Tartrate 100 MG Tablet PO ×2 (09:41→23:13)
[2022-03-15] MEDS: Pantoprazole Sodium 40 MG Tablet PO (09:41)
[2022-03-15] MEDS: FLUoxetine 20 MG Capsule 60 MG PO (09:41)
[2022-03-15] MEDS: Menthol/Lanolin/Calamine/Znox 113 GM Tube 1 APPLIC TOPICAL ×2 (09:42→22:19)
[2022-03-15] MEDS: Ondansetron 4 MG/2 ML Vial IV ×2 (09:45→17:50)
[2022-03-15] MEDS: LORazepam 0.5 MG Tablet PO ×2 (09:45→17:50)
--- NOTE | 2022-03-15 10:30 | NURSING ---
Port de-accessed per patient time unknown. Port reaccessed with no blood return.
[2022-03-15] MEDS: TBO-FILGRASTIM 480 MCG/0.8 ML ML SC (10:31)
[2022-03-15] MEDS: Alteplase 2 MG/2 ML Vial IV (11:18)
--- NOTE | 2022-03-15 11:46 | PCM.PN.HOSP ---
Documented by User: Cosmo PACK 03/15/22 11:57 Subjective Subjective Patient is a 56-year-old male comfortably resting in bed, alert and orient x3. Patient reports that his shortness of breath has improved from yesterday and he reports feeling overall better. Objective Data Objective Data Vital Signs: Vital Signs Temp Pulse Resp BP Pulse Ox 97.4 F L 95 18 123/74 H 99 03/15/22 09:35 03/15/22 09:41 03/15/22 09:35 03/15/22 09:41 03/15/22 09:35 Oxygen Flow Rate (L/min) 2 Oxygen Delivery Method Nasal Cannula Weight: 232 lb 12.93 oz Body Mass Index (BMI) 28.3 Intake & Output: Intake and Output for Last 24 Hours 03/13/22 03/14/22 03/15/22 23:59 23:59 23:59 Intake Total 320 / 320 1803.33 / 2003.33 440 / 440 Output Total 200 / 200 150 / 150 200 / 200 Balance 120 / 120 1653.33 / 1853.33 240 / 240 Medical Nutrition Assessment Dietitian: Malnutrition Criteria Met Start: 03/14/22 12:01 Freq: Status: Active Protocol: Document 03/14/22 12:01 (Rec: 03/14/22 12:01 [id number]) Nutrition Malnutrition Evidence of Malnutrition Exists Yes Malnutrition (severe): Chronic Evidenced By Suboptimal Energy Intake ( Severe),Weight Loss (Severe) Clinical Problem Chronic Disease or Condition Related Malnutrition Etiology severe, chronic malnutrition r /t inadequate energy intake w/ increased energy needs d/t cancer Signs/Symptoms as evidenced by unintentional wt loss of 62.4#/21% x 7 months; estimated PO intake meeting <75% of estimated energy needs >3 months Status Active Problem Recommendation Dietitian Recommendations/Changes continue regular diet; will add 120mL ensure clear 4x/day w/ medpass for additional calories/protein if consumed. Lab / Micro Data Result Diagrams: 03/15/22 04:26 03/15/22 04:26 Labs: Laboratory Results - last 24 hr 03/13/22 17:05: Diff Path Review Reviewed 03/14/22 05:16: Diff Path Review Reviewed 03/15/22 04:26: WBC 0.7 L*, RBC 2.72 L, Hgb 8.3 L, Hct 24.4 L, MCV 89.7, MCH 30.5, MCHC 34.0, RDW Std Deviation 59.7 H, RDW Coeff of Benjamin 18.4 H, Plt Count 16 L*, MPV 11.6, Immature Gran % (Auto) 0.000, Neut % (Auto) 53.7, Lymph % (Auto) 29.0, Citrus % (Auto) 15.9 H, Eos % (Auto) 1.4, Baso % (Auto) 0.0, Absolute Neuts (auto) 0.4 L, Absolute Lymphs (auto) 0.20 L, Nucleated RBC % 0, Differential Comment SCANNED, Diff Path Review May foll, Anisocytosis 1+, Microcytosis 1+, Macrocytosis RARE 03/15/22 04:26: Sodium 134 L, Potassium 4.3, Chloride 107, Carbon Dioxide 21.0, Anion Gap 6, BUN 34 H, Creatinine 1.54 H, Estim Creat Clear Calc 64.97, Est GFR (MDRD) Af Amer 60, Est GFR (MDRD) Non-Af 50 L, BUN/Creatinine Ratio 22.1 H, Glucose 93, Calcium 8.2 L, Total Bilirubin 0.70, AST 14 L, ALT 19, Alkaline Phosphatase 37 L, Total Protein 5.2 L, Albumin 1.8 L, Globulin 3.4, Albumin/Globulin Ratio 0.5 L Micro: Microbiology 03/13/22 20:20 Urine, Clean Catch Urine Culture - Preliminary Culture exhibits no growth. 03/14/22 12:35 Urine, Clean Catch Legionella Antigen - Final 03/14/22 12:35 Urine, Clean Catch Streptococcus pneumoniae Antigen (M - Final 03/13/22 17:43 Nasal Secretion SARS-CoV-2 & FLU Antigen (Rapid) - Final Rhythm Strip Rhythm Strip: A-fib Rate: 95 Ectopy: None Physical Exam Const alert, oriented x3 and no apparent distress HEENT head/scalp atraumatic and moist oral mucous membranes Head and Scalp: normocephalic Eyes PERRL, EOMs intact bilaterally and conjunctivae normal Neck no lymphadenopathy, supple and no JVD Resp normal respiratory effort, no retractions and no use of accessory muscles Cardio regular rate, regular rhythm and no JVD GI normal to inspection, nondistended, normoactive bowel sounds Extremity normal to inspection Skin no rashes or lesions noted Neuro CN's II-XII intact bilaterally Psych affect normal Assessment & Plan Assessment/Plan (1) Acute respiratory failure with hypoxia: (2) Hypoxia: (3) Neutropenic fever: (4) Pneumonia: (5) Pancytopenia: PLAN: Day 2 Discharge planning: To be determined. 1) acute hypoxic respiratory failure secondary to possible right-sided HAP Patient comes to the hospital from a care home. Currently satting 96% on 2 L via nasal cannula, which is patient baseline. Rapid Covid is negative, blood culture and urine culture pending. We will continue cefepime and vancomycin and de-escalate based off of sensitivities, hold Xarelto in preparation for possible thoracentesis, monitor for thrush. 2) neutropenic fever Continue Granix and monitor neutrophil count. 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 On chemotherapy, follows with Dr. Johnson. 4) atrial fibrillation On metoprolol and amiodarone for rate/rhythm control. Patient is anticoagulated on Xarelto. Continue metoprolol and amiodarone, hold Xarelto as above. 5) HTN Blood pressure stable, continue metoprolol. 6) chronic diastolic CHF Does not appear to be in acute exacerbation. Most recent echocardiogram from May 2021 shows normal LV systolic function and an EF of 55%. Continue metoprolol. 7) depression/anxiety Continue Ativan and Prozac. 8) GERD Continue PPI. DVT prophylaxis - SCD's, home Xarelto on hold as above. Patient seen by Cosmo Mane PA-C, under the supervision of Dr. Broussard. Time spent on patient care: 9 minutes. Documented by User: Dr. Fredi Broussard, 03/15/22 12:18 Subjective Subjective Denies any complaints. Objective Data Lab / Micro Data Result Diagrams: 03/15/22 04:26 03/15/22 04:26 Physical Exam Const alert and no apparent distress HEENT Head and Scalp: normocephalic Resp Resp Narrative: Coarse breath sounds bilaterally Cardio regular rate, regular rhythm, S1 normal heart sound and S2 normal heart sound GI normal to inspection, nondistended, normoactive bowel sounds, soft to palpation, non-tender and non-distended Extremity normal to inspection Skin no rashes or lesions noted Assessment & Plan Assessment/Plan (1) Acute respiratory failure with hypoxia: (2) Neutropenic fever: (3) Pneumonia: (4) Pancytopenia: PLAN: Patient seen and examined independently. Data and vitals reviewed. I agree with the above note by the physician judicial administrative assistant. 1. Suspected gram-negative pneumonia Patient started on cefepime but given the patient's recent hospitalizations and neutropenia, will also add vancomycin. Pulmonary toilet Check sputum culture. urinary antigens for Streptococcus and Legionella negative 2. Neutropenic fever Secondary to pneumonia Continue with antibiotics as above and follow-up cultures. Continue with Granix and continue until ANC greater than 1000/mm3 for 3 consecutive days 3. Stage IV small cell lung cancer Follow-up with oncology as outpatient. Patient undergoing palliative chemotherapy. 4. Right-sided pleural effusion Reviewed imaging. Not significantly increased from November 4 of this year. Last thoracentesis was from May of last year and was exudative in appearance based on the LVH wound. Likely due to malignancy. Hold off on any repeat thoracentesis at this point in time. 5. Acute hypoxic respiratory failure Likely multifactorial: Due to the patient's underlying lung cancer, pleural effusion, possible radiation pneumonitis and overlying pneumonia. Patient dropped down to 84% on room air. Wean oxygen as tolerated Pulmonary toilet as above 6. Atrial fibrillation Currently rate controlled Continue with amiodarone and metoprolol tartrate Rivaroxaban initially held in the chance the patient may require a thoracentesis. Being that we feel that thoracentesis medially necessary, will resume the rivaroxaban. 7. DVT prophylaxis: Not indicated patient is already on rivaroxaban. Greater than 20 minutes of which was spent reviewing data, evaluating patient, reviewing documentation. Charges/Coding Visit Charges Inpatient E&M: 32151 Subs Hosp L2
--- NOTE | 2022-03-15 11:51 | NURSING ---
Unable to get blood return via port. Will allow cath kike to dwell additional time.
[2022-03-15] MEDS: Metoclopramide 5 MG TABLET PO (12:30)
[2022-03-15] MEDS: 0.9% Saline Lock 10 ML Syringe IV ×3 (12:30→17:50)
--- NOTE | 2022-03-15 12:44 | NURSING ---
Blood return obtained from port.
[2022-03-15] MEDS: Rivaroxaban 20 MG Tablet PO (17:51)
[2022-03-15] MEDS: Pravastatin 40 MG Tablet PO (17:51)
[2022-03-15 20:53] LABS: Vancomycin, Trough Level 27.6 ug/mL (5.0-15.0)
--- NOTE | 2022-03-15 22:14 | PCM.RX.CS ---
Consult Pharmacy has been consulted to manage selected antiobiotic: Vancomycin Type of Consult: Follow-up Suspected Infection: Other Labs: Sodium 134 mmol/L (136-145) L 03/15/22 04:26 Potassium 4.3 mmol/L (3.5-5.1) 03/15/22 04:26 Chloride 107 mmol/L (98-107) 03/15/22 04:26 Carbon Dioxide 21.0 mmol/L (21.0-32.0) 03/15/22 04:26 Anion Gap 6 (5-15) 03/15/22 04:26 BUN 34 mg/dL (7-18) H 03/15/22 04:26 Creatinine 1.54 mg/dL (0.70-1.30) H 03/15/22 04:26 Est GFR (MDRD) Af Amer 60 mL/min (>60) 03/15/22 04:26 Est GFR (MDRD) Non-Af 50 mL/min (>60) L 03/15/22 04:26 BUN/Creatinine Ratio 22.1 RATIO (10-20) H 03/15/22 04:26 Glucose 93 mg/dL (74-106) 03/15/22 04:26 Vancomycin Trough 27.6 ug/mL (5.0-15.0) H 03/15/22 18:19 Microbiology: Microbiology 03/13/22 20:20 Urine, Clean Catch Urine Culture - Preliminary Culture exhibits no growth. 03/14/22 12:35 Urine, Clean Catch Legionella Antigen - Final 03/14/22 12:35 Urine, Clean Catch Streptococcus pneumoniae Antigen (M - Final 03/13/22 17:43 Nasal Secretion SARS-CoV-2 & FLU Antigen (Rapid) - Final Weight used for dosin.6 kg Estimated Creatinine Clearance: 65 Goal Trough: 15-20 mcg/mL Pharmacy Plan for Drug Dosing: Vancomycin was temporarily held due to a high trough result of 27.6. However, on further inspection, the previous dose had been hung 1.5hrs late and the lab draw was 1.25hrs early. The resultant level was therefore a 7.8hr level, and understandable. The dosing was resumed, and another trough level is scheduled for 03/16/22 @1000. Pharmacy Service will continue to monitor and adjust dosing as required. Follow-Up Labs: Trough Vancomycin Labs to be done on [date and time ordered]: 03/16/22 @1000
[2022-03-15] MEDS: Doxazosin 1 MG Tablet 2 MG PO (23:15)
[2022-03-16] VITALS (17 sets, daily range): BP systolic 98–133; BP diastolic 59–75; PULSE 69–94; RESP 18–28; TEMP 36.2–36.6; O2SAT 93–100
[2022-03-16 05:49] LABS: Absolute Lymphocyte Count 0.21 X10^3/uL (0.83-4.51); Absolute Neutrophil Count 0.4 X10^3/uL (2.0-7.7); Basophil# 0.01 X10^3/uL; Basophil% 1.1 % (0-1); Eosinophil# 0.01 X10^3/uL; Eosinophils% 1.1 % (0-5); Hematocrit 24.2 % (40-54); Hemoglobin 8.1 g/dL (13.0-16.5); Lymphocyte # 0.21 X10^3/ul (0.83-4.51); Lymphocyte % 22.8 % (19-41); Mean Corp Hgb Conc 33.5 g/dL (32-36); Mean Corpuscular Hgb 30.5 pg (27.0-32.0); Monocyte% 10.9 % (0-10); NRBC Flagged by Analyzer 0 % (0-5); Neutrophil # 0.36 X10^3/uL (2.7-7.7); Neutrophil % 39.1 % (47-70); POSITIVE COUNT YES; POSITIVE DIFFERENTIAL YES; POSITIVE MORPHOLOGY YES; Platelet Count 14 K/mm3 (150-450); RBC Distribution Width CV 18.6 % (11.6-14.6); RBC Distribution Width SD 61.1 fl (35.1-43.9); Red Blood Count 2.66 M/mm3 (4.6-6.2); White Blood Count 0.9 K/mm3 (4.4-11.0)
[2022-03-16] MEDS: Ipratropium/Albuterol Sulfate 3 ML AMPUL.NEB INHALATION ×3 (06:04→19:57)
[2022-03-16] MEDS: Budesonide Respules 0.5 MG/2 ML AMPUL.NEB. INHALATION ×2 (06:05→19:57)
[2022-03-16 06:20] LABS: Differential Indicated SCAN CRITERIA MET
[2022-03-16 06:25] LABS: Anion Gap 6 (5-15); BUN 34 mg/dL (7-18); BUN/Creat Ratio 25.8 RATIO (10-20); Calcium,Total 8.7 mg/dL (8.5-10.1); Chloride 108 mmol/L (98-107); Creatinine, Serum 1.32 mg/dL (0.70-1.30); EST Glomerular Filtration Rate 59 mL/min (>60); Est Glom Filt Rate - Afr Amer 72 mL/min (>60); Glucose 86 mg/dL (74-106); Potassium 3.8 mmol/L (3.5-5.1); Sodium Level 136 mmol/L (136-145)
[2022-03-16 06:35] LABS: Anisocytosis 1+; Platelet Estimate MKD DEC (ADEQ)
[2022-03-16 06:37] LABS: Differential Comment SCANNED
[2022-03-16] MEDS: TBO-FILGRASTIM 480 MCG/0.8 ML ML SC (09:16)
[2022-03-16] MEDS: Amiodarone 200 MG Tablet PO (09:17)
[2022-03-16] MEDS: FLUoxetine 20 MG Capsule 60 MG PO (09:17)
[2022-03-16] MEDS: Pantoprazole Sodium 40 MG Tablet PO (09:17)
[2022-03-16] MEDS: Metoprolol Tartrate 100 MG Tablet PO ×2 (09:17→22:54)
[2022-03-16 10:48] LABS: Vancomycin, Trough Level 30.8 ug/mL (5.0-15.0)
--- NOTE | 2022-03-16 11:01 | CT_ITS ---
STUDY: CT BRAIN WITHOUT CONTRAST REASON FOR EXAM: Male, 56 years old. confusion RADIATION DOSAGE (If Supplied By Facility): CTDIvol = ( 44.99 ) mGy, DLP = ( 863.60 ) mGycm TECHNIQUE: Transaxial CT imaging of the brain was performed without administration of intravenous contrast material. Individualized dose optimization techniques were used for this CT. COMPARISON: No relevant priors. FINDINGS: Normal soft tissue structures. Normal calvarium. There is mild cerebral atrophy with widening of the extra-axial spaces and ventricular dilatation. There are areas of decreased attenuation within the white matter tracts of the supratentorial brain, consistent with microvascular disease changes. Chronic lacunar infarct of the left basal ganglia. Normal brainstem. Normal cerebellum. There is no intracranial hemorrhage. There are no findings of an acute ischemic infarction. Normal visualized paranasal sinuses. CT/Brain/Head without Contrast IMPRESSION: Chronic involutional changes of the brain. Electronically Signed: Pb Troncoso MD at 12:12 EDT ,
--- NOTE | 2022-03-16 11:18 | PCM.RX.CS ---
Consult Pharmacy has been consulted to manage selected antiobiotic: Vancomycin Type of Consult: Follow-up Labs: Sodium 136 mmol/L (136-145) 03/16/22 05:36 Potassium 3.8 mmol/L (3.5-5.1) 03/16/22 05:36 Chloride 108 mmol/L (98-107) H 03/16/22 05:36 Carbon Dioxide 22.0 mmol/L (21.0-32.0) 03/16/22 05:36 Anion Gap 6 (5-15) 03/16/22 05:36 BUN 34 mg/dL (7-18) H 03/16/22 05:36 Creatinine 1.32 mg/dL (0.70-1.30) H 03/16/22 05:36 Est GFR (MDRD) Af Amer 72 mL/min (>60) 03/16/22 05:36 Est GFR (MDRD) Non-Af 59 mL/min (>60) L 03/16/22 05:36 BUN/Creatinine Ratio 25.8 RATIO (10-20) H 03/16/22 05:36 Glucose 86 mg/dL (74-106) 03/16/22 05:36 Vancomycin Trough 30.8 ug/mL (5.0-15.0) H 03/16/22 09:50 Microbiology: Microbiology 03/13/22 17:15 Blood Culture (Wb) - Right Hand Blood Culture - Preliminary No growth in 48 hours. 03/13/22 17:05 Blood Culture (Wb) - Port Blood Culture - Preliminary No growth in 48 hours. 03/13/22 20:20 Urine, Clean Catch Urine Culture - Final Culture exhibits no growth. 03/14/22 12:35 Urine, Clean Catch Legionella Antigen - Final 03/14/22 12:35 Urine, Clean Catch Streptococcus pneumoniae Antigen (M - Final 03/13/22 17:43 Nasal Secretion SARS-CoV-2 & FLU Antigen (Rapid) - Final Goal Trough: 15-20 mcg/mL Pharmacy Plan for Drug Dosing: VANCOMYCIN LEVEL RECEIVED Current Vancomycin Dose: 1250MG IV Q12H Vancomycin Level: 30.8 Hours Since Last Dose: 10hr Renal Function: 1.32 Renal Function Trend: stable Lab/Micro: All Cx NGTD Vancomycin Plan/Comments: The patient had a level drawn this morning which resulted in a level of 30.8 (drawn 10hr from last administered dose). This is the patient's 2nd elevated trough (goal 15-20). Although both troughs were drawn early, this current trough was only drawn ~1hr earlier than anticipated. With this in mind, the patient's true trough is likely still above 20. Will hold subsequent vancomycin doses until the torugh is <20 Pending Level: *RANDOM* level 03/17/22 with AM labs Pharmacy Service will continue to monitor and adjust dosing as required.
--- NOTE | 2022-03-16 11:23 | PN.HOSP_ITS ---
Documented by User: Cosmo PACK 03/16/22 11:30 Subjective Subjective Patient is a 56-year-old male sitting in a chair, alert and orient x3. Nursing staff reports that patient was observed having some hallucinations this morning and was asking for his family who was not present. No such activity was ob served on my evaluation, patient reported feeling okay and denied any vomiting episodes this morning. Objective Data Objective Data Vital Signs: Vital Signs Temp Pulse Resp BP Pulse Ox 97.1 F L 76 18 101/59 L 100 03/16/22 08:49 03/16/22 09:17 03/16/22 08:49 03/16/22 09:17 03/16/22 08:49 Oxygen Flow Rate (L/min) 4 Oxygen Delivery Method Nasal Cannula Weight: 232 lb 12.93 oz Body Mass Index (BMI) 28.3 Intake & Output: Intake and Output for Last 24 Hours 03/14/22 03/15/22 03/16/22 23:59 23:59 23:59 Intake Total 1803.33 / 2003.33 1245 / 1245 275 / 275 Output Total 150 / 150 200 / 400 200 / 200 Balance 1653.33 / 1853.33 1045 / 845 75 / 75 Medical Nutrition Assessment Dietitian: Malnutrition Criteria Met Start: 03/14/22 12:01 Freq: Status: Active Protocol: Document 03/14/22 12:01 (Rec: 03/14/22 12:01 [id number]) Nutrition Malnutrition Evidence of Malnutrition Exists Yes Malnutrition (severe): Chronic Evidenced By Suboptimal Energy Intake ( Severe),Weight Loss (Severe) Clinical Problem Chronic Disease or Condition Related Malnutrition Etiology severe, chronic malnutrition r /t inadequate energy intake w/ increased energy needs d/t cancer Signs/Symptoms as evidenced by unintentional wt loss of 62.4#/21% x 7 months; estimated PO intake meeting <75% of estimated energy needs >3 months Status Active Problem Recommendation Dietitian Recommendations/Changes continue regular diet; will add 120mL ensure clear 4x/day w/ medpass for additional calories/protein if consumed. Lab / Micro Data Result Diagrams: 03/16/22 05:36 03/16/22 05:36 Labs: Laboratory Results - last 24 hr 03/15/22 18:19: Vancomycin Trough 27.6 H 03/16/22 05:36: WBC 0.9 L*, RBC 2.66 L, Hgb 8.1 L, Hct 24.2 L, MCV 91.0, MCH 30.5, MCHC 33.5, RDW Std Deviation 61.1 H, RDW Coeff of Benjamin 18.6 H, Plt Count 14 L*, Immature Gran % (Auto) 25.000 H, Neut % (Auto) 39.1 L, Lymph % (Auto) 22.8, Amador % (Auto) 10.9 H, Eos % (Auto) 1.1, Baso % (Auto) 1.1 H, Absolute Neuts (auto) 0.4 L, Absolute Lymphs (auto) 0.21 L, Nucleated RBC % 0, Differential Comment SCANNED, Diff Path Review March foll, Platelet Estimate MKD DEC, Anisocytosis 1+ 03/16/22 05:36: Sodium 136, Potassium 3.8, Chloride 108 H, Carbon Dioxide 22.0, Anion Gap 6, BUN 34 H, Creatinine 1.32 H, Estim Creat Clear Calc 75.80, Est GFR (MDRD) Af Amer 72, Est GFR (MDRD) Non-Af 59 L, BUN/Creatinine Ratio 25.8 H, Glucose 86, Calcium 8.7 03/16/22 09:50: Vancomycin Trough 30.8 H Micro: Microbiology 03/13/22 17:15 Blood Culture (Wb) - Right Hand Blood Culture - Preliminary No growth in 48 hours. 03/13/22 17:05 Blood Culture (Wb) - Port Blood Culture - Preliminary No growth in 48 hours. 03/13/22 20:20 Urine, Clean Catch Urine Culture - Final Culture exhibits no growth. 03/14/22 12:35 Urine, Clean Catch Legionella Antigen - Final 03/14/22 12:35 Urine, Clean Catch Streptococcus pneumoniae Antigen (M - Final 03/13/22 17:43 Nasal Secretion SARS-CoV-2 & FLU Antigen (Rapid) - Final Rhythm Strip Rhythm Strip: A-fib Rate: 95 Ectopy: None Physical Exam Const alert, oriented x3 and no apparent distress HEENT head/scalp atraumatic and moist oral mucous membranes Head and Scalp: normocephalic Eyes PERRL, EOMs intact bilaterally and conjunctivae normal Neck no lymphadenopathy, supple and no JVD Resp normal respiratory effort, no retractions and no use of accessory muscles Cardio regular rate, regular rhythm and no JVD GI normal to inspection, nondistended, normoactive bowel sounds and soft to palpation Extremity normal to inspection Skin no rashes or lesions noted Neuro CN's II-XII intact bilaterally Psych affect normal Assessment & Plan Assessment/Plan (1) Acute respiratory failure with hypoxia: (2) Neutropenic fever: (3) Hypoxia: (4) Pneumonia: (5) Pancytopenia: PLAN: Day 3 Discharge planning: To be determined. 1) acute hypoxic respiratory failure secondary to possible right-sided HAP Patient comes to the hospital from a retirement. Currently satting 96% on 2 L via nasal cannula, which is patient baseline. Rapid Covid is negative, and urine cultures are negative, Legionella and strep pneumo urinary antigens are negative. We will continue cefepime and vancomycin, monitor for thrush. 2) neutropenic fever Continue Granix and monitor neutrophil count. 3) visual hallucinations Patient was observed having visual hallucinations this morning, and was asking for his family. Patient still appropriately alert and oriented and did not believe he was encephalopathic, per se. Will obtain brain CT. 4) atrial fibrillation On metoprolol and amiodarone for rate/rhythm control. Patient is anticoagulated on Xarelto. Continue metoprolol and amiodarone, continue Xarelto 5) HTN Blood pressure stable, continue metoprolol. 6) chronic diastolic CHF Does not appear to be in acute exacerbation. Most recent echocardiogram from May 2021 shows normal LV systolic function and an EF of 55%. Continue metoprolol. 7) depression/anxiety Continue Ativan and Prozac. 8) GERD Continue PPI. 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 Johnson. DVT prophylaxis - Xarelto Patient seen by Cosmo Mane PA-C, under the supervision of Dr. Broussard. Time spent on patient care: 8 minutes. Documented by User: Dr. Fredi Broussard, 03/16/22 12:59 Subjective Subjective States that his grandkids and nieces were outside the door, they were not. States that he is being strapped down into a chair and that there is some issue in regards to espionage is keeping him here in the hospital. Objective Data Lab / Micro Data Result Diagrams: 03/16/22 05:36 03/16/22 05:36 Physical Exam Const alert, oriented x3 and no apparent distress Constitutional Narrative: Confused Resp normal respiratory effort, no retractions, no use of accessory muscles and clear to auscultation bilaterally Cardio regular rate, regular rhythm, S1 normal heart sound and S2 normal heart sound GI normal to inspection, nondistended, normoactive bowel sounds Extremity normal to inspection Assessment & Plan Assessment/Plan (1) Acute respiratory failure with hypoxia: (2) Neutropenic fever: (3) Pneumonia: (4) Pancytopenia: PLAN: Patient seen and examined independently. Data and vitals reviewed. I agree with the above note by the physician assistant professor of radiology. 1. Suspected gram-negative pneumonia Patient started on cefepime but given the patient's recent hospitalizations and neutropenia, will also add vancomycin. Pulmonary toilet Check sputum culture. urinary antigens for Streptococcus and Legionella negative 2. Neutropenic fever Secondary to pneumonia Continue with antibiotics as above and follow-up cultures. Continue with Granix and continue until ANC greater than 1000/mm3 for 3 consecutive days 3. Stage IV small cell lung cancer Follow-up with oncology as outpatient. Patient undergoing palliative chemotherapy. 4. Right-sided pleural effusion Reviewed imaging. Not significantly increased from November 4 of this year. Last thoracentesis was from May of last year and was exudative in appearance based on the LVH wound. Likely due to malignancy. Hold off on any repeat thoracentesis at this point in time. 5. Acute hypoxic respiratory failure Likely multifactorial: Due to the patient's underlying lung cancer, pleural effusion, possible radiation pneumonitis and overlying pneumonia. Patient dropped down to 84% on room air. Wean oxygen as tolerated Pulmonary toilet as above 6. Atrial fibrillation Currently rate controlled Continue with amiodarone and metoprolol tartrate Rivaroxaban initially held in the chance the patient may require a thoracentesis. Being that we feel that thoracentesis medially necessary, will resume the rivaroxaban. 7. Confusion Patient having hallucinations Head CT performed today was negative for any acute process. Had received some intermittent dosing of lorazepam but last dosing was on 03/15 at 1750 Appears to be more of a chronic process but will hold any potentiating medica tions, including lorazepam for now. DVT prophylaxis: Not indicated patient is already on rivaroxaban. Greater than 20 minutes of which was spent reviewing data, evaluating patient, reviewing documentation. Charges/Coding Visit Charges Inpatient E&M: 50216 Subs Hosp L2
[2022-03-16] MEDS: Rivaroxaban 20 MG Tablet PO (16:42)
[2022-03-16] MEDS: Pravastatin 40 MG Tablet PO (16:42)
[2022-03-16] MEDS: Furosemide 40 MG Tablet PO (17:25)
[2022-03-16] MEDS: Doxazosin 1 MG Tablet 2 MG PO (22:53)
[2022-03-16] MEDS: Menthol/Lanolin/Calamine/Znox 113 GM Tube 1 APPLIC TOPICAL (22:53)
[2022-03-17] VITALS (17 sets, daily range): BP systolic 95–130; BP diastolic 56–74; PULSE 66–109; RESP 18–24; TEMP 36.2–36.7; O2SAT 88–100
[2022-03-17] MEDS: LORazepam 0.5 MG Tablet PO (04:10)
[2022-03-17 06:29] LABS: Eosinophil# 0.01 X10^3/uL; Hematocrit 26.7 % (40-54); Hemoglobin 8.4 g/dL (13.0-16.5); Mean Corp Hgb Conc 31.5 g/dL (32-36); Mean Corpuscular Hgb 30.2 pg (27.0-32.0); Monocyte# 0.18 X10^3/uL; NRBC Flagged by Analyzer 0 % (0-5); POSITIVE COUNT YES; POSITIVE DIFFERENTIAL YES; POSITIVE MORPHOLOGY YES; RBC Distribution Width CV 18.8 % (11.6-14.6); RBC Distribution Width SD 66.4 fl (35.1-43.9); Red Blood Count 2.78 M/mm3 (4.6-6.2)
[2022-03-17 06:36] LABS: Differential Indicated SCAN CRITERIA MET; Platelet Count 16 K/mm3 (150-450); White Blood Count 1.3 K/mm3 (4.4-11.0)
[2022-03-17 06:51] LABS: Anion Gap 7 (5-15); BUN 34 mg/dL (7-18); BUN/Creat Ratio 23.8 RATIO (10-20); Chloride 105 mmol/L (98-107); Creatinine, Serum 1.43 mg/dL (0.70-1.30); EST Glomerular Filtration Rate 54 mL/min (>60); Est Glom Filt Rate - Afr Amer 65 mL/min (>60); Estimated Creatinine Clearance 69.97 ml/min; Glucose 101 mg/dL (74-106); Potassium 3.5 mmol/L (3.5-5.1); Sodium Level 136 mmol/L (136-145)
[2022-03-17 06:54] LABS: Vancomycin, Random Level 25.6 ug/mL (0.0-15.0)
[2022-03-17 07:05] LABS: Scan Smear per Review Criteria MANUAL DIFF
[2022-03-17] MEDS: Ipratropium/Albuterol Sulfate 3 ML AMPUL.NEB INHALATION ×2 (07:07→19:03)
[2022-03-17] MEDS: Budesonide Respules 0.5 MG/2 ML AMPUL.NEB. INHALATION ×2 (07:08→19:03)
[2022-03-17 07:14] LABS: Eosinophil 2 % (0-5); Lymphocyte 25 % (19-41); Metamyelocyte 5 % (0-1); Monocyte 9 % (0-10); Neutrophil-Band 6 % (0-5); Neutrophil-Segmented 53 % (47-70); Nucleated Red Bld Cells,Manual 1 % (0-5); Total Cells Counted 100 (MANUAL DIFF)
[2022-03-17 07:15] LABS: Absolute Neutrophil Count 0.8 X10^3/uL (2.0-7.7); Neutrophil # 0.84 X10^3/uL (2.7-7.7)
[2022-03-17 07:16] LABS: Absolute Lymphocyte Count 0.33 X10^3/uL (0.83-4.51); Lymphocyte # 0.33 X10^3/ul (0.83-4.51); Platelet Estimate MKD DEC (ADEQ); Toxic Granulation 1+
[2022-03-17 07:19] LABS: Anisocytosis 2+; Macrocytosis 1+; Microcytosis 1+
[2022-03-17] MEDS: Menthol/Lanolin/Calamine/Znox 113 GM Tube 1 APPLIC TOPICAL (08:37)
[2022-03-17] MEDS: TBO-FILGRASTIM 480 MCG/0.8 ML ML SC (08:37)
--- NOTE | 2022-03-17 08:42 | PCM.RX.CS ---
Consult Pharmacy has been consulted to manage selected antiobiotic: Vancomycin Type of Consult: Follow-up Suspected Infection: Pneumonia, Other - Neutropenic Fever Prior Doses of Antibiotics Received/Current Regimen: Last dose was 1250mg iv on 03.15.22 @6049. Labs: Sodium 136 mmol/L (136-145) 03/17/22 05:40 Potassium 3.5 mmol/L (3.5-5.1) 03/17/22 05:40 Chloride 105 mmol/L (98-107) 03/17/22 05:40 Carbon Dioxide 24.0 mmol/L (21.0-32.0) 03/17/22 05:40 Anion Gap 7 (5-15) 03/17/22 05:40 BUN 34 mg/dL (7-18) H 03/17/22 05:40 Creatinine 1.43 mg/dL (0.70-1.30) H 03/17/22 05:40 Est GFR (MDRD) Af Amer 65 mL/min (>60) 03/17/22 05:40 Est GFR (MDRD) Non-Af 54 mL/min (>60) L 03/17/22 05:40 BUN/Creatinine Ratio 23.8 RATIO (10-20) H 03/17/22 05:40 Glucose 101 mg/dL (74-106) 03/17/22 05:40 Vancomycin Trough 30.8 ug/mL (5.0-15.0) H 03/16/22 09:50 Random Vancomycin 25.6 ug/mL (0.0-15.0) H 03/17/22 05:40 Microbiology: Microbiology 03/13/22 17:15 Blood Culture (Wb) - Right Hand Blood Culture - Preliminary No growth in 48 hours. 03/13/22 17:05 Blood Culture (Wb) - Port Blood Culture - Preliminary No growth in 48 hours. 03/13/22 20:20 Urine, Clean Catch Urine Culture - Final Culture exhibits no growth. 03/14/22 12:35 Urine, Clean Catch Legionella Antigen - Final 03/14/22 12:35 Urine, Clean Catch Streptococcus pneumoniae Antigen (M - Final 03/13/22 17:43 Nasal Secretion SARS-CoV-2 & FLU Antigen (Rapid) - Final Weight used for dosin.6 kg Estimated Creatinine Clearance: 70 ml/min Goal Trough: 15-20 mcg/mL Pharmacy Plan for Drug Dosing: Random level 4.17 was 30.8. Today's random level @0540 was still elevated at 25.6. Renal function reviewed and about same. Will hold any further dosing until level <20. Another random level has been ordered for 4. @0600. Pharmacy Service will continue to monitor and adjust dosing as required. Follow-Up Labs: Trough Vancomycin - random level 4. @0600
[2022-03-17] MEDS: Ondansetron 4 MG/2 ML Vial IV ×2 (08:47→19:23)
[2022-03-17] MEDS: 0.9% Saline Lock 10 ML Syringe IV ×2 (08:47→19:25)
[2022-03-17] MEDS: Pantoprazole Sodium 40 MG Tablet PO (09:29)
[2022-03-17] MEDS: FLUoxetine 20 MG Capsule 60 MG PO (09:29)
[2022-03-17] MEDS: Amiodarone 200 MG Tablet PO (09:29)
--- NOTE | 2022-03-17 09:51 | CASEMGMT ---
Patient is getting close to being ready for discharge. CLAIRE faxed updates to [facility] this am. CLAIRE also called Edyta and asked her to please start the pre-cert for patient. Plan: d/c back to [facility] under skilled level of care pending pre-cert. Letha Quevedo MSW [facility]
[2022-03-17] MEDS: Metoprolol Tartrate 100 MG Tablet PO ×2 (10:32→22:19)
[2022-03-17 11:59] LABS: Pathologist Review Reviewed
[2022-03-17 12:00] LABS: Pathologist Review Reviewed
[2022-03-17 12:00] LABS: Pathologist Review Reviewed
--- NOTE | 2022-03-17 14:17 | PN.HOSP_ITS ---
Documented by User: Cosmo PACK 03/17/22 14:22 Subjective Subjective Patient is a 56-year-old male lying in bed, alert and orient x3. Patient reports that his nausea and vomiting have improved, denies any further shortness of breath. Does not appear in acute distress. Objective Data Objective Data Vital Signs: Vital Signs Temp Pulse Resp BP Pulse Ox 97.2 F L 93 18 113/74 95 03/17/22 14:08 03/17/22 14:08 03/17/22 14:08 03/17/22 14:08 03/17/22 14:08 Oxygen Flow Rate (L/min) 3 Oxygen Delivery Method Nasal Cannula Weight: 232 lb 12.93 oz Body Mass Index (BMI) 28.3 Intake & Output: Intake and Output for Last 24 Hours 03/15/22 03/16/22 03/17/22 23:59 23:59 23:59 Intake Total 1245 / 1245 1185 / 1185 480 / 480 Output Total 200 / 400 770 / 770 150 / 150 Balance 1045 / 845 415 / 415 330 / 330 Medical Nutrition Assessment Dietitian: Malnutrition Criteria Met Start: 03/14/22 12:01 Freq: Status: Active Protocol: Document 03/14/22 12:01 (Rec: 03/14/22 12:01 [id number]) Nutrition Malnutrition Evidence of Malnutrition Exists Yes Malnutrition (severe): Chronic Evidenced By Suboptimal Energy Intake ( Severe),Weight Loss (Severe) Clinical Problem Chronic Disease or Condition Related Malnutrition Etiology severe, chronic malnutrition r /t inadequate energy intake w/ increased energy needs d/t cancer Signs/Symptoms as evidenced by unintentional wt loss of 62.4#/21% x 7 months; estimated PO intake meeting <75% of estimated energy needs >3 months Status Active Problem Recommendation Dietitian Recommendations/Changes continue regular diet; will add 120mL ensure clear 4x/day w/ medpass for additional calories/protein if consumed. Lab / Micro Data Result Diagrams: 03/17/22 05:40 03/17/22 05:40 Labs: Laboratory Results - last 24 hr 03/15/22 04:26: Diff Path Review Reviewed 03/16/22 05:36: Diff Path Review Reviewed 03/17/22 05:40: Random Vancomycin 25.6 H 03/17/22 05:40: WBC 1.3 L*, RBC 2.78 L, Hgb 8.4 L, Hct 26.7 L, MCV 96.0 H D, MCH 30.2, MCHC 31.5 L D, RDW Std Deviation 66.4 H, RDW Coeff of Benjamin 18.8 H, Plt Count 16 L*, Immature Gran % (Auto) TYING MACHINE OPERATOR, Neut % (Auto) TYING MACHINE OPERATOR, Lymph % (Auto) TYING MACHINE OPERATOR, [place] % (Auto) TYING MACHINE OPERATOR, Eos % (Auto) TYING MACHINE OPERATOR, Baso % (Auto) TYING MACHINE OPERATOR, Absolute Neuts (auto) 0.8 L , Absolute Lymphs (auto) 0.33 L, Total Counted 100, Neutrophils % (Manual) 53, Band Neutrophils % 6 H, Lymphocytes % (Manual) 25, Monocytes % (Manual) 9, Eosinophils % (Manual) 2, Metamyelocytes % 5 H, Nucleated RBC % 0, Nucleated RBCs/100 WBC 1, Diff Path Review Reviewed, Toxic Granulation 1+, Platelet Estimate MKD DEC, Anisocytosis 2+, Microcytosis 1+, Macrocytosis 1+ 03/17/22 05:40: Sodium 136, Potassium 3.5, Chloride 105, Carbon Dioxide 24.0, Anion Gap 7, BUN 34 H, Creatinine 1.43 H, Estim Creat Clear Calc 69.97, Est GFR (MDRD) Af Amer 65, Est GFR (MDRD) Non-Af 54 L, BUN/Creatinine Ratio 23.8 H, Glucose 101, Calcium 9.0 Micro: Microbiology 03/16/22 21:39 Sputum, Expectorated/Coughed Gram Stain - Final 03/13/22 17:15 Blood Culture (Wb) - Right Hand Blood Culture - Preliminary No growth in 48 hours. 03/13/22 17:05 Blood Culture (Wb) - Port Blood Culture - Preliminary No growth in 48 hours. 03/13/22 20:20 Urine, Clean Catch Urine Culture - Final Culture exhibits no growth. 03/14/22 12:35 Urine, Clean Catch Legionella Antigen - Final 03/14/22 12:35 Urine, Clean Catch Streptococcus pneumoniae Antigen (M - Final 03/13/22 17:43 Nasal Secretion SARS-CoV-2 & FLU Antigen (Rapid) - Final Rhythm Strip Rhythm Strip: A-fib Rate: 95 Ectopy: None Physical Exam Const alert, oriented x3 and no apparent distress HEENT head/scalp atraumatic and moist oral mucous membranes Head and Scalp: normocephalic Eyes PERRL and conjunctivae normal Neck no lymphadenopathy, supple and no JVD Resp normal respiratory effort, no retractions and no use of accessory muscles Cardio regular rate, regular rhythm and no JVD GI normal to inspection, nondistended, normoactive bowel sounds Skin no rashes or lesions noted Neuro CN's II-XII intact bilaterally Psych affect normal Assessment & Plan Assessment/Plan (1) Acute respiratory failure with hypoxia: (2) Neutropenic fever: PLAN: Day 4 Discharge planning: Discharge to SNF pending pre-CERT. 1) acute hypoxic respiratory failure secondary to possible right-sided HAP Patient comes to the hospital from a senior living. Currently satting 96% on 2 L via nasal cannula, which is patient baseline. Rapid Covid is negative, and urine cultures are negative, Legionella and strep pneumo urinary antigens are negative. We will continue cefepime and vancomycin, monitor for thrush. 2) neutropenic fever Continue Granix and monitor neutrophil count. 3) visual hallucinations Resolved, unclear etiology brain CT unremarkable. 4) atrial fibrillation On metoprolol and amiodarone for rate/rhythm control. Patient is anticoagulated on Xarelto. Continue metoprolol and amiodarone, continue Xarelto 5) HTN Blood pressure stable, continue metoprolol. 6) chronic diastolic CHF Does not appear to be in acute exacerbation. Most recent echocardiogram from May 2021 shows normal LV systolic function and an EF of 55%. Continue m etoprolol. 7) depression/anxiety Continue Ativan and Prozac. 8) GERD Continue PPI. 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 Johnson. DVT prophylaxis - Xarelto Patient seen by Cosmo Mane PA-C, under the supervision of Dr. Adam. Time spent on patient care: 8 minutes. Documented by User: Dr. Eren Aadm MD 03/17/22 14:57 Objective Data Lab / Micro Data Result Diagrams: 03/17/22 05:40 03/17/22 05:40 Assessment & Plan Addt'l Comments This patient was seen in conjunction with Cosmo Mane PA-C. I have independently interviewed and examined the patient and reviewed pertinent historical, laboratory, and other data. Please refer to Cosmo Mane PA-C's note for details of this patient's presentation, findings, and recommendations. I have reviewed Cosmo Mane PA-C's note and concur with documented findings. In brief, patient is a 56-year-old male with history of stage IV non-small cell lung CA with mets to liver who presented with shortness of breath. An assessment of acute hypoxic respiratory failure secondary to right-sided pneumonia with suspected gram-negative organisms made admitted to regular nursing floor. Patient was also found to be significantly neutropenic on admission Physical Examination: GENERAL: cooperative HEENT: Atraumatic; EYES; Anicteric, Normal Conjunctiva NECK; supple, normal thyroid, RESPIRATORY: Diminished to auscultation CARDIOVASCULAR: Regular S1 S2, GI: soft, normoactive bowel sounds, : No Renal angle tenderness; EXTREMITIES: No edema, no clubbing, MUSCULOSKELETAL: no muscle wasting NEURO: Awake; no lateralizing signs. SKIN: No Rash PSYCH; Flat affect Assessment: 1. Acute hypoxic respiratory failure 2. Pneumonia with suspected gram-negative organisms 3. Neutropenic fever 4. Paroxysmal A. fib 5. Essential hypertension 6. GERD 7. Chronic congestive heart failure with preserved ejection fraction 8. Depression with anxiety 9. Stage IV lung CA with mets to the liver 10. 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 DVT prophylaxis Recommendations: 1. I have discussed the results of my overview and impressions with the patient 2. Options for management were reviewed Total time spent by myself and the advanced practice practitioner evaluating patient, reviewing labs, subsequent management decisions, discussion with patient as well as other providers 33 minutes ( 25 of which was spent by myself) Charges/Coding Visit Charges Inpatient E&M: 66917 Subs Hosp L2
[2022-03-17] MEDS: Rivaroxaban 20 MG Tablet PO (17:17)
[2022-03-17] MEDS: Pravastatin 40 MG Tablet PO (18:34)
[2022-03-17] MEDS: Ensure Clear 120 ML Liquid PO (22:25)
[2022-03-17] MEDS: Doxazosin 1 MG Tablet 2 MG PO (22:29)
[2022-03-18] VITALS (32 sets, daily range): BP systolic 82–132; BP diastolic 46–103; PULSE 75–137; RESP 18–36; TEMP 36.1–36.7; O2SAT 89–98
[2022-03-18 06:12] LABS: Absolute Lymphocyte Count 0.22 X10^3/uL (0.83-4.51); Absolute Neutrophil Count 1.7 X10^3/uL (2.0-7.7); Basophil# 0.02 X10^3/uL; Basophil% 0.9 % (0-1); Hematocrit 25.7 % (40-54); Hemoglobin 8.1 g/dL (13.0-16.5); Lymphocyte # 0.22 X10^3/ul (0.83-4.51); Lymphocyte % 9.7 % (19-41); Mean Corp Hgb Conc 31.5 g/dL (32-36); Mean Corpuscular Hgb 30.3 pg (27.0-32.0); Mean Corpuscular Volume 96.3 fL (80-94); Monocyte# 0.25 X10^3/uL; NRBC Flagged by Analyzer 2.2 % (0-5); Neutrophil # 1.73 X10^3/uL (2.7-7.7); Neutrophil % 76.2 % (47-70); POSITIVE COUNT YES; POSITIVE DIFFERENTIAL YES; POSITIVE MORPHOLOGY YES; RBC Distribution Width CV 18.8 % (11.6-14.6); RBC Distribution Width SD 66.5 fl (35.1-43.9); Red Blood Count 2.67 M/mm3 (4.6-6.2); White Blood Count 2.3 K/mm3 (4.4-11.0)
[2022-03-18 06:15] LABS: Differential Indicated SCAN CRITERIA MET; Platelet Count 16 K/mm3 (150-450)
[2022-03-18 06:41] LABS: Anion Gap 11 (5-15); BUN 37 mg/dL (7-18); BUN/Creat Ratio 23.4 RATIO (10-20); Calcium,Total 8.9 mg/dL (8.5-10.1); Chloride 105 mmol/L (98-107); Creatinine, Serum 1.58 mg/dL (0.70-1.30); EST Glomerular Filtration Rate 48 mL/min (>60); Est Glom Filt Rate - Afr Amer 58 mL/min (>60); Estimated Creatinine Clearance 63.33 ml/min; Glucose 97 mg/dL (74-106); Potassium 3.6 mmol/L (3.5-5.1); Sodium Level 136 mmol/L (136-145)
[2022-03-18 06:43] LABS: Vancomycin, Random Level 20.3 ug/mL (0.0-15.0)
[2022-03-18 06:53] LABS: Anisocytosis 2+; Microcytosis 1+
[2022-03-18 06:54] LABS: Macrocytosis 1+
[2022-03-18 06:55] LABS: Platelet Estimate MKD DEC (ADEQ)
[2022-03-18] MEDS: Budesonide Respules 0.5 MG/2 ML AMPUL.NEB. INHALATION ×2 (07:27→20:04)
[2022-03-18] MEDS: Ipratropium/Albuterol Sulfate 3 ML AMPUL.NEB INHALATION ×3 (07:27→20:05)
[2022-03-18] MEDS: Metoprolol Tartrate 100 MG Tablet PO ×2 (08:52→19:37)
[2022-03-18] MEDS: TBO-FILGRASTIM 480 MCG/0.8 ML ML SC (08:53)
[2022-03-18] MEDS: FLUoxetine 20 MG Capsule 60 MG PO (08:53)
[2022-03-18] MEDS: Pantoprazole Sodium 40 MG Tablet PO (08:53)
[2022-03-18] MEDS: Amiodarone 200 MG Tablet PO (08:53)
[2022-03-18] MEDS: Ondansetron 4 MG/2 ML Vial IV ×2 (09:01→17:41)
[2022-03-18] MEDS: 0.9% Saline Lock 10 ML Syringe IV ×4 (09:01→22:46)
--- NOTE | 2022-03-18 09:23 | PCM.RX.CS ---
Consult Pharmacy has been consulted to manage selected antiobiotic: Vancomycin Type of Consult: Follow-up Prior Doses of Antibiotics Received/Current Regimen: no scheduled dose at this time but the latest dose was 1250mg given on 03/15/22 at 23:48 Labs: Sodium 136 mmol/L (136-145) 03/18/22 05:50 Potassium 3.6 mmol/L (3.5-5.1) 03/18/22 05:50 Chloride 105 mmol/L (98-107) 03/18/22 05:50 Carbon Dioxide 20.0 mmol/L (21.0-32.0) L 03/18/22 05:50 Anion Gap 11 (5-15) 03/18/22 05:50 BUN 37 mg/dL (7-18) H 03/18/22 05:50 Creatinine 1.58 mg/dL (0.70-1.30) H 03/18/22 05:50 Est GFR (MDRD) Af Amer 58 mL/min (>60) L 03/18/22 05:50 Est GFR (MDRD) Non-Af 48 mL/min (>60) L 03/18/22 05:50 BUN/Creatinine Ratio 23.4 RATIO (10-20) H 03/18/22 05:50 Glucose 97 mg/dL (74-106) 03/18/22 05:50 Vancomycin Trough 30.8 ug/mL (5.0-15.0) H 03/16/22 09:50 Random Vancomycin 20.3 ug/mL (0.0-15.0) H 03/18/22 05:50 Microbiology: Microbiology 03/16/22 21:39 Sputum, Expectorated/Coughed Gram Stain - Final 03/13/22 17:15 Blood Culture (Wb) - Right Hand Blood Culture - Preliminary No growth in 48 hours. 03/13/22 17:05 Blood Culture (Wb) - Port Blood Culture - Preliminary No growth in 48 hours. 03/13/22 20:20 Urine, Clean Catch Urine Culture - Final Culture exhibits no growth. 03/14/22 12:35 Urine, Clean Catch Legionella Antigen - Final 03/14/22 12:35 Urine, Clean Catch Streptococcus pneumoniae Antigen (M - Final 03/13/22 17:43 Nasal Secretion SARS-CoV-2 & FLU Antigen (Rapid) - Final Weight used for dosin.6 kg Estimated Creatinine Clearance: 63ML/MIN Goal Trough: 15-20 mcg/mL Pharmacy Plan for Drug Dosing: The vanc random level drawn at 05:50 today (approx 54 hrs after the last dose of 1250mg was given) came back as 20.3. Per protocol, can resume dosing when the level is back below 20 so will wait another 8 hours and give a one-time dose of 1250mg today at 14:00. Will not restart on a programmed dose at this time due to the patient having trouble clearing the vanc the past few days despite his CrCl being in the 60s or 70s. Will get another random level tomorrow 24 hours after the dose today and reevaluate from there. Pharmacy Service will continue to monitor and adjust dosing as required. Follow-Up Labs: Trough Vancomycin - random Labs to be done on [date and time ordered]: 03/19/22 14:00 random level
--- NOTE | 2022-03-18 09:55 | CASEMGMT ---
CLAIRE faxed updated PT/OT notes to [facility] in the event insurance would like them. Letha Quevedo SITE IDENTIFICATION SPECIALIST [place]
[2022-03-18 12:00] LABS: Magnesium 1.9 mg/dL (1.6-2.6); Phosphorus 2.5 mg/dL (2.5-4.9)
--- NOTE | 2022-03-18 12:49 | EKG12_ITS ---
Test Reason : CP Blood Pressure : / mmHG Vent. Rate : 094 BPM Atrial Rate : 093 BPM P-R Int : 000 ms QRS Dur : 088 ms QT Int : 372 ms P-R-T Axes : 000 -19 192 degrees QTc Int : 465 ms Atrial fibrillation with premature ventricular or aberrantly conducted complexes ST & T wave abnormality, consider inferolateral ischemia or digitalis effect Prolonged QT Abnormal ECG When compared with ECG of 13-MAR-2022 17:35, QRS duration has decreased T wave inversion more evident in Inferior leads Nonspecific T wave abnormality, improved in Anterior leads Confirmed by PARESH BARKLEY, PAULY ([id number]), video news editor SARY OLIVO ([id number]) on 03/20/2022 12:56:56 P M Referred By: GREG Confirmed By:MONTSERRAT YODER MD
--- NOTE | 2022-03-18 12:50 | RAD_ITS ---
STUDY: X-RAY CHEST REASON FOR EXAM: Male, 56 years old. increased oxygen demand TECHNIQUE: AP COMPARISON: 03/13/2022 FINDINGS: Left chest port stable. Volume loss and parenchymal consolidation involving the right hemithorax redemonstrated with increased pleural effusion. Patchy peripheral and basilar infiltrates involving the left lung have increased. There is no demonstrated pleural abnormality. Normal size heart. Normal mediastinum and inge. Normal visualized pulmonary arteries. There is atherosclerotic tortuosity of the aortic arch and descending thoracic aorta. There is demineralization of the osseous structures. Normal visualized ribs, clavicles, and shoulders. There is no demonstrated abnormality of the visualized soft tissue structures of the upper abdomen. RAD/Chest 1 View (Portable) IMPRESSION: 1. Unfavorable change. Increasing left pulmonary infiltrates. 2. Increasing right pleural effusion with underlying pulmonary consolidation. Electronically Signed: Wilfred Burgess MD ([place]) at 14:00 EDT Reading Location ID and State: [facility] / MD , Service support ,
[2022-03-18 13:21] LABS: Pathologist Review Reviewed
[2022-03-18] MEDS: Nitroglycerin (INPATIENT USE) 0.4 MG TAB.SUBL SL ×3 (13:21→15:07)
[2022-03-18 13:35] LABS: Troponin-I HS 9 pg/mL (3.0-78.0)
--- NOTE | 2022-03-18 13:48 | CT_ITS ---
STUDY: CTA CHEST REASON FOR EXAM: Male, 56 years old. Hypoxia RADIATION DOSAGE (If Supplied By Facility): CTDIvol = ( 13.85 ) mGy, DLP = ( 552.02 ) mGycm TECHNIQUE: The examination was performed with the intravenous administration of IV 100mL Isovue-370. Post-processing of the angiographic images was performed, with multiplanar reformation and 3D reconstruction. Individualized dose optimization techniques were used for this CT. COMPARISON: Chest x-ray from earlier today. FINDINGS: Left chest port is again identified. Normal enhancement of the main pulmonary artery and right and left pulmonary arteries. Normal enhancement of the bilateral peripheral pulmonary arteries. There is no demonstrated pulmonary embolism. There is atherosclerotic calcification of the aortic arch with tortuosity. There is no demonstrated aortic dissection. Normal heart and pericardium. There are calcifications of the coronary arteries. Shift of the mediastinum towards the right. Normal hilar regions. Diffuse consolidation of the right lung involving the right lower more than upper segments with heterogeneous opacity identified in the distal right mainstem bronchus on image 164 series 2. Multilobar peribronchial nodular consolidation involving the left lower lobe, upper lobe and lingula. There is also layering debris in the dependent portion of the left mainstem bronchus on image 159 series 2. Loculated right pleural effusion and small left pleural effusion are present. There are degenerative changes of thoracic spine. Normal visualized upper abdomen. CT/CTA Chest W/WO Contrast IMPRESSION: 1. No central or segmental pulmonary embolism. 2. Dense airspace consolidation throughout the right lung with right mainstem endobronchial opacity, possible aspirated/mucoid material. Probable component of postobstructive atelectasis. 3. Multilobar left infiltrates suggesting pneumonia. Aspiration type pneumonia should be considered. 4. Loculated right pleural effusion. Small left pleural effusion. Electronically Signed: Wilfred Burgess MD (Brooks) at 14:57 EDT ,
--- NOTE | 2022-03-18 15:04 | PCM.PN.HOSP ---
Documented by User: Cosmo PACK 03/18/22 15:15 Subjective Subjective Patient is a 56-year-old male lying in bed, alert and orient x3. Patient with subjective reports of shortness of breath as well as chest pain. Patient reports a sense of impending doom. Objective Data Objective Data Vital Signs: Vital Signs Temp Pulse Resp BP Pulse Ox 97.6 F L 117 H 26 H 125/71 H 92 03/18/22 12:20 03/18/22 15:02 03/18/22 13:13 03/18/22 15:02 03/18/22 13:26 Oxygen Flow Rate (L/min) 4 Oxygen Delivery Method Nasal Cannula Weight: 232 lb 12.93 oz Body Mass Index (BMI) 28.3 Intake & Output: Intake and Output for Last 24 Hours 03/16/22 03/17/22 03/18/22 23:59 23:59 23:59 Intake Total 1185 / 1185 850 / 850 220 / 220 Output Total 770 / 770 150 / 150 Balance 415 / 415 700 / 700 220 / 220 Medical Nutrition Assessment Dietitian: Malnutrition Criteria Met Start: 03/14/22 12:01 Freq: Status: Active Protocol: Document 03/14/22 12:01 (Rec: 03/14/22 12:01 [id number]) Nutrition Malnutrition Evidence of Malnutrition Exists Yes Malnutrition (severe): Chronic Evidenced By Suboptimal Energy Intake ( Severe),Weight Loss (Severe) Clinical Problem Chronic Disease or Condition Related Malnutrition Etiology severe, chronic malnutrition r /t inadequate energy intake w/ increased energy needs d/t cancer Signs/Symptoms as evidenced by unintentional wt loss of 62.4#/21% x 7 months; estimated PO intake meeting <75% of estimated energy needs >3 months Status Active Problem Recommendation Dietitian Recommendations/Changes continue regular diet; will add 120mL ensure clear 4x/day w/ medpass for additional calories/protein if consumed. Lab / Micro Data Result Diagrams: 03/18/22 05:50 03/18/22 05:50 Labs: Laboratory Results - last 24 hr 03/18/22 05:50: Random Vancomycin 20.3 H 03/18/22 05:50: WBC 2.3 L, RBC 2.67 L, Hgb 8.1 L, Hct 25.7 L, MCV 96.3 H, MCH 30.3, MCHC 31.5 L, RDW Std Deviation 66.5 H, RDW Coeff of Benjamin 18.8 H, Plt Count 16 L*, Immature Gran % (Auto) 2.200 H, Neut % (Auto) 76.2 H, Lymph % (Auto) 9.7 L, [place] % (Auto) 11.0 H, Eos % (Auto) 0.0, Baso % (Auto) 0.9, Absolute Neuts (auto) 1.7 L, Absolute Lymphs (auto) 0.22 L, Nucleated RBC % 2.2, Diff Path Review Reviewed, Platelet Estimate MKD DEC, Anisocytosis 2+, Microcytosis 1+, Macrocytosis 1+ 03/18/22 05:50: Sodium 136, Potassium 3.6, Chloride 105, Carbon Dioxide 20.0 L, Anion Gap 11, BUN 37 H, Creatinine 1.58 H, Estim Creat Clear Calc 63.33, Est GFR (MDRD) Af Amer 58 L, Est GFR (MDRD) Non-Af 48 L, BUN/Creatinine Ratio 23.4 H, Glucose 97, Calcium 8.9 03/18/22 05:50: Phosphorus 2.5, Magnesium 1.9 03/18/22 10:20: Blood Type AB POSITIVE, Antibody Screen NEGATIVE 03/18/22 13:05: Troponin I High Sens 9 Micro: Microbiology 03/16/22 21:39 Sputum, Expectorated/Coughed Gram Stain - Final 03/16/22 21:39 Sputum, Expectorated/Coughed Respiratory Culture - Preliminary Staphylococcus aureus Presumptive C albicans 03/13/22 17:15 Blood Culture (Wb) - Right Hand Blood Culture - Preliminary No growth in 48 hours. 03/13/22 17:05 Blood Culture (Wb) - Port Blood Culture - Preliminary No growth in 48 hours. 03/13/22 20:20 Urine, Clean Catch Urine Culture - Final Culture exhibits no growth. 03/14/22 12:35 Urine, Clean Catch Legionella Antigen - Final 03/14/22 12:35 Urine, Clean Catch Streptococcus pneumoniae Antigen (M - Final 03/13/22 17:43 Nasal Secretion SARS-CoV-2 & FLU Antigen (Rapid) - Final Radiography Diagnostic Testing: Radiology Impression Chest X-Ray 03/18/22 12:50 IMPRESSION: 1. Unfavorable change. Increasing left pulmonary infiltrates. 2. Increasing right pleural effusion with underlying pulmonary consolidation. Electronically Signed: Wilfred Burgess MD (Brooks) at 14:00 EDT , Chest CTA 03/18/22 13:48 IMPRESSION: 1. No central or segmental pulmonary embolism. 2. Dense airspace consolidation throughout the right lung with right mainstem endobronchial opacity, possible aspirated/mucoid material. Probable component of postobstructive atelectasis. 3. Multilobar left infiltrates suggesting pneumonia. Aspiration type pneumonia should be considered. 4. Loculated right pleural effusion. Small left pleural effusion. Electronically Signed: Wilfred Burgess MD (Brooks) at 14:57 EDT , Rhythm Strip Rhythm Strip: A-fib Rate: 95 Ectopy: None Physical Exam Const alert and oriented x3 HEENT head/scalp atraumatic and moist oral mucous membranes Head and Scalp: normocephalic Eyes PERRL and conjunctivae normal Neck no lymphadenopathy, supple and no JVD Resp Effort and Inspection: tachypneic and labored Auscultation: rhonchi and diminished lung sounds Cardio no murmurs and no JVD Rate: tachycardic Rhythm: abnormal rhythm GI normal to inspection, nondistended, normoactive bowel sounds Extremity normal to inspection Skin General Skin Exam: jaundice Neuro CN's II-XII intact bilaterally Psych affect normal Assessment & Plan Assessment/Plan (1) Acute respiratory failure with hypoxia: (2) Neutropenic fever: PLAN: Day 5 Discharge planning: Discharge to SNF pending pre-CERT. 1) acute hypoxic respiratory failure secondary to possible right-sided HAP/Aspiration PNA Patient's respiratory status has declined and patient is now requiring Airvo, patient has also developed a tachycardia with chest pain. Chest x-ray appears similar to previous study, and chest CTA was negative for any PE. EKG was unremarkable for any T wave or ST changes, high since troponins negative. Will initiate Airvo, continue cefepime and vancomycin. 2) neutropenic fever Continue Granix and monitor neutrophil count. 3) visual hallucinations Resolved, unclear etiology brain CT unremarkable. 4) thrombocytopenia Likely related to treatments for small cell lung cancer, platelets currently at 16,000 and have remained low throughout admission. Will transfuse platelets and continue to monitor. 5) HTN Blood pressure stable, continue metoprolol. 6) chronic diastolic CHF Does not appear to be in acute exacerbation. Most recent echocardiogram from May 2021 shows normal LV systolic function and an EF of 55%. Continue metoprolol. 7) depression/anxiety Continue Ativan and Prozac. 8) GERD Continue PPI. 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 Johnson. 10) atrial fibrillation On metoprolol and amiodarone for rate/rhythm control. Patient is anticoagulated on Xarelto. Continue metoprolol and amiodarone, continue Xarelto DVT prophylaxis - Xarelto Patient seen by Cosmo Mane PA-C, under the supervision of Dr. Adam. Documented by User: Dr. Eren Adam MD 03/18/22 15:22 Objective Data Lab / Micro Data Result Diagrams: 03/18/22 05:50 03/18/22 05:50 Assessment & Plan Addt'l Comments This patient was seen in conjunction with Cosmo Mane PA-C. I have independently interviewed and examined the patient and reviewed pertinent historical, laboratory, and other data. Please refer to Cosmo Mane PA-C's note for details of this patient's presentation, findings, and recommendations. I have reviewed Cosmo Mane PA-C's note and concur with documented findings. In brief, patient is a 56-year-old male with history of stage IV non-small cell lung CA with mets to liver who presented with shortness of breath. An assessment of acute hypoxic respiratory failure secondary to right-sided pneumonia with suspected gram-negative organisms made admitted to regular nursing floor. Patient was also found to be significantly neutropenic on admission 03/18/2022; patient seen complains of intermittent shortness of breath as well as chest pain. EKG obtained did not show any evidence of acute ischemia. Patient also has low-grade fever. Awaiting insurance precertification prior to discharge to custodial facility Physical Examination: GENERAL: cooperative HEENT: Atraumatic; EYES; Anicteric, Normal Conjunctiva NECK; supple, normal thyroid, RESPIRATORY: Diminished to auscultation CARDIOVASCULAR: Regular S1 S2, GI: soft, normoactive bowel sounds, : No Renal angle tenderness; EXTREMITIES: No edema, no clubbing, MUSCULOSKELETAL: no muscle wasting NEURO: Awake; no lateralizing signs. SKIN: No Rash PSYCH; Flat affect Assessment: 1. Acute hypoxic respiratory failure 2. Pneumonia with suspected gram-negative organisms 3. Neutropenic fever 4. Paroxysmal A. fib 5. Essential hypertension 6. GERD 7. Chronic congestive heart failure with preserved ejection fraction 8. Depression with anxiety 9. Stage IV lung CA with mets to the liver 10. 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 DVT prophylaxis Recommendations: 1. I have discussed the results of my overview and impressions with the patient 2. Options for management were reviewed Total time spent by myself and the advanced practice practitioner evaluating patient, reviewing labs, subsequent management decisions, discussion with patient as well as other providers 40 minutes ( 25 of which was spent by myself) Charges/Coding Visit Charges Inpatient E&M: 83491 Subs Hosp L2
--- NOTE | 2022-03-18 15:33 | CASEMGMT ---
CLAIRE called Edyta at [facility] and left her a voice mail asking if she has heard anything from insurance. Letha Quevedo RN INVASIVE [place]
[2022-03-18] MEDS: 0.9% Normal Saline 1,000 ML 75 ML IV (15:46)
[2022-03-18] MEDS: Metoprolol Tartrate 5 MG/5 ML Vial IV (17:08)
[2022-03-18] MEDS: Doxazosin 1 MG Tablet 2 MG PO (19:37)
[2022-03-18] MEDS: LORazepam 0.5 MG Tablet PO (19:37)
[2022-03-18] MEDS: Menthol/Lanolin/Calamine/Znox 113 GM Tube 1 APPLIC TOPICAL (19:38)
--- NOTE | 2022-03-18 21:35 | NURSING ---
pt expressed that he wants to go under hospice care. Pt doesnt want airo. Pt said he has been fighting cancer for 4 years and today is a good day to seek hospice. Pt said I am tired of fighting
[2022-03-18] MEDS: LORazepam 2 MG/ML Syringe 0.5 MG IV (22:46)
--- NOTE | 2022-03-18 23:00 | NURSING ---
pt wanting a coke. dr pedersenasis ok to have drink since pt going hospice
--- NOTE | 2022-03-18 23:14 | NURSING ---
hospice here to see pt
--- NOTE | 2022-03-18 23:55 | PCM.PN.BLA ---
Progress Note Had a 30-minute discussion with both the patient and his family members at bedside about advanced care planning. Given the fact that he is now on Airvo and is having some difficulty breathing he is deciding on proceeding with hospice at this time. Discussed all options with him and family is on board with him proceeding with hospice. We will have him meet with hospice nursing to see if he is able to go to the inpatient unit tonight or if he will need to stay here for his care given his oxygen requirements. Procedures Hospitalists Procedures: 55910 Advncd Care Plan 30 Min
[2022-03-19 00:55] VITALS: BP 100/68; PULSE 142; RESP 26; O2SAT 94
[2022-03-19] MEDS: 0.9% Saline Lock 10 ML Syringe IV ×2 (00:58→03:26)
[2022-03-19] MEDS: LORazepam 2 MG/ML Syringe 0.5 MG IV ×2 (00:59→03:25)
--- NOTE | 2022-03-19 01:43 | DS.PCM_ITS ---
Providers Date of Admission: 03/13/22 Primary Care Physician: Dr. Lizzeth Velasquez MD Consultations 03/18/22 21:30 Consult: Hospice / Palliative Care Routine Consulting Provider: [facility] Reason for Consult: pt request EMERGENT Consult: Yes MD Notified: Yes Date Notified: 03/18/22 Time Notified: 21:30 Method of Notification: Answering Service Reason For Visit: NEUTROPENIC FEVER Diagnosis Discharge Diagnosis (1) Acute respiratory failure with hypoxia: Status: Acute Code(s): J96.01 - Acute respiratory failure with hypoxia (2) Neutropenic fever: Status: Acute Code(s): D70.9 - Neutropenia, unspecified; R50.81 - Fever presenting with conditions classified elsewhere Medications at Discharge Home Medications albuterol sulfate 90 mcg/actuation breath activated powder inhaler 2 inh INHALATION Q4H PRN PRN #1 each 01/21/21 pravastatin 40 mg tablet 40 mg PO DINNER #90 tablet 05/02/21 cholecalciferol (vitamin D3) 1,250 mcg PO TH 06/05/21 Disability Placard #1 ea 06/20/21 pantoprazole 40 mg tablet,delayed release 40 mg PO DAILY #30 tab 07/15/21 fluoxetine 20 mg capsule 60 mg PO DAILY #270 cap 07/30/21 fluticasone propionate 50 mcg/actuation nasal spray,suspension 2 spray NASAL DAILY PRN PRN #16 g 09/18/21 acetaminophen 500 mg tablet 500 mg PO BID PRN PRN tab 11/14/21 tiotropium bromide 2.5 mcg/actuation mist for inhalation 2 puff INHALATION DAILY #4 gm 01/16/22 prochlorperazine maleate 10 mg tablet 10 mg PO Q6H PRN #30 tab 01/21/22 amiodarone 200 mg PO DAILY 02/02/22 polyethylene glycol 3350 [Miralax] 17 g PO BID 02/02/22 loratadine [Claritin] 10 mg PO DAILY PRN #0 tab 02/04/22 metoprolol tartrate 100 mg PO BID #0 tab 02/04/22 rivaroxaban 20 mg PO QDAY #30 tablet 02/04/22 MAGIC MOUTH WASH (BMX) 15 ml PO Q4H PRN PRN #180 ml 02/11/22 guaifenesin 100 mg/5 mL oral liquid 200 mg PO Q4H PRN 02/11/22 lorazepam 0.5 mg tablet 0.5 mg PO TID PRN 02/11/22 oxycodone 5 mg tablet 5 mg PO Q8H PRN 02/11/22 acetaminophen 650 mg PO Q4H PRN 03/13/22 acetaminophen 650 mg WA Q4H PRN 03/13/22 aluminum-magnesium hydroxide [Antacid] 30 ml PO Q4H PRN PRN 03/13/22 bisacodyl 10 mg WA DAILY PRN 03/13/22 dextrose [Glucose Gel] 10 g PO Q15M PRN 03/13/22 doxazosin 2 mg PO QHS 03/13/22 fluticasone furoate-vilanterol [Breo Ellipta] 1 inh INHALATION DAILY 03/13/22 glucagon [Glucagon Emergency Kit] 1 mg IM PRN PRN 03/13/22 lidocaine 1 applic TOPICAL PRN PRN 03/13/22 metoclopramide HCl 5 mg PO Q6H PRN PRN 03/13/22 ondansetron HCl [Zofran] 4 mg PO DAILY 03/13/22 potassium chloride 20 meq PO DAILY 03/13/22 sodium phosphates [Fleet Enema] 118 ml WA DAILY PRN 03/13/22 Hospital Course Operations None Procedures None Summary of Care Provided Minutes Spent on Discharge: 45 Hospital Course: Per HPI: RONALDO ADAM, is a 56 M who [facility]. He states that he has not been feeling well for about the last month and a half or so. He did just start up another round of chemotherapy based on response to his metastatic small cell lung cancer to previous chemotherapy. His last dose of chemo was on Thursday, and he is insurance no longer pays for any colony- stimulating factor and so his absolute neutrophil count today is 0.5 with a fever max of 101. He was also found to be hypoxic and desatted down to 84% on room air in the ER per the ED physician's note. There is no obvious sign of infection at this time, he does have a chronic right pleural effusion that has been drained fairly frequently but cytology is always come back negative. There could be a pneumonia. UA is pending. Hospital course: 1. Acute hypoxic respiratory failure neutropenic fever secondary to possible right-sided pneumonia/stage IV non-small cell lung cancer with mets to the liver/COPD without exacerbation?56-year-old male presented to the hospital from a [facility] with fevers and neutropenia. He was started on broad-spectrum antibiotics however during his course in the hospital his oxygen status has progressively worsened and this past evening he was on air Vo. He had an extensive discussion with myself as well as with his family and he understands that the stage IV lung cancer not curable and that the chemotherapy was just for palliation. At this time given his respiratory distress he stated that he no lo nger wants to undergo any chemotherapy and would like to proceed with hospice. I did discuss with him trying to continue the treatment for his respiratory distress at this time and see if we can get him stable and then [facility] him back [facility] on hospice but he felt that he wanted to proceed tonight with hospice. I did give him a dose of Ativan for comfort and hospice was consulted. Does appear that they will plan to take him to the inpatient unit this evening get him comfortable. His family is aware of his decision for hospice and they state that they have been talking to him over this past week about his decision to continue with chemotherapy versus proceed with hospice and they are in full support of his decision. Physical Exam Const alert and oriented x3 General Appearance: cooperative and ill appearing HEENT normocephalic Mouth: dry mucous membranes Eyes PERRL, EOMs intact bilaterally and conjunctivae normal Neck supple and no JVD Resp normal respiratory effort, no retractions and no use of accessory muscles Effort and Inspection: tachypneic Auscultation: rhonchi and diminished lung sounds; Negative for crackles, rales or wheezes Cardio regular rhythm, S1 normal heart sound, S2 normal heart sound and no murmurs Rate: tachycardic GI soft to palpation, non-tender and non-distended; Negative for hepatosplenomegaly Extremity General Extremity: edema; Negative for clubbing or cyanosis Skin no rashes or lesions noted Neuro no focal motor deficits and no sensory deficits noted Psych Mood & Affect: flat affect Medical Records Data Medical Nutrition Assessment Dietitian: Malnutrition Criteria Met Start: 03/14/22 12:01 Freq: Status: Active Protocol: Document 03/14/22 12:01 (Rec: 03/14/22 12:01 [id number]) Nutrition Malnutrition Evidence of Malnutrition Exists Yes Malnutrition (severe): Chronic Evidenced By Suboptimal Energy Intake ( Severe),Weight Loss (Severe) Clinical Problem Chronic Disease or Condition Related Malnutrition Etiology severe, chronic malnutrition r /t inadequate energy intake w/ increased energy needs d/t cancer Signs/Symptoms as evidenced by unintentional wt loss of 62.4#/21% x 7 months; estimated PO intake meeting <75% of estimated energy needs >3 months Status Active Problem Recommendation Dietitian Recommendations/Changes continue regular diet; will add 120mL ensure clear 4x/day w/ medpass for additional calories/protein if consumed. Weight / BMI Weight Weight: 232 lb 12.93 oz Body Mass Index (BMI) 28.3 ABG / Lab / Microbiology Data Result Diagrams: 03/18/22 05:50 03/18/22 05:50 Laboratory: Laboratory Results - last 24 hr 03/18/22 05:50: Random Vancomycin 20.3 H 03/18/22 05:50: WBC 2.3 L, RBC 2.67 L, Hgb 8.1 L, Hct 25.7 L, MCV 96.3 H, MCH 30.3, MCHC 31.5 L, RDW Std Deviation 66.5 H, RDW Coeff of Benjamin 18.8 H, Plt Count 16 L*, Immature Gran % (Auto) 2.200 H, Neut % (Auto) 76.2 H, Lymph % (Auto) 9.7 L, Tripp % (Auto) 11.0 H, Eos % (Auto) 0.0, Baso % (Auto) 0.9, Absolute Neuts (auto) 1.7 L, Absolute Lymphs (auto) 0.22 L, Nucleated RBC % 2.2, Diff Path Review Reviewed, Platelet Estimate MKD DEC, Anisocytosis 2+, Microcytosis 1+, Macrocytosis 1+ 03/18/22 05:50: Sodium 136, Potassium 3.6, Chloride 105, Carbon Dioxide 20.0 L, Anion Gap 11, BUN 37 H, Creatinine 1.58 H, Estim Creat Clear Calc 63.33, Est GFR (MDRD) Af Amer 58 L, Est GFR (MDRD) Non-Af 48 L, BUN/Creatinine Ratio 23.4 H, Glucose 97, Calcium 8.9 03/18/22 05:50: Phosphorus 2.5, Magnesium 1.9 03/18/22 10:20: Blood Type AB POSITIVE, Antibody Screen NEGATIVE 03/18/22 13:05: Troponin I High Sens 9 Microbiology: Microbiology 03/16/22 21:39 Sputum, Expectorated/Coughed Gram Stain - Final 03/16/22 21:39 Sputum, Expectorated/Coughed Respiratory Culture - Preliminary Staphylococcus aureus Presumptive C albicans 03/13/22 17:15 Blood Culture (Wb) - Right Hand Blood Culture - Preliminary No growth in 48 hours. 03/13/22 17:05 Blood Culture (Wb) - Port Blood Culture - Preliminary No growth in 48 hours. 03/13/22 20:20 Urine, Clean Catch Urine Culture - Final Culture exhibits no growth. 03/14/22 12:35 Urine, Clean Catch Legionella Antigen - Final 03/14/22 12:35 Urine, Clean Catch Streptococcus pneumoniae Antigen (M - Final 03/13/22 17:43 Nasal Secretion SARS-CoV-2 & FLU Antigen (Rapid) - Final Radiography Diagnostic Testing: Radiology Impression Chest X-Ray 03/18/22 12:50 IMPRESSION: 1. Unfavorable change. Increasing left pulmonary infiltrates. 2. Increasing right pleural effusion with underlying pulmonary consolidation. Electronically Signed: Wilfred Burgess MD ([place]) at 14:00 EDT , Chest CTA 03/18/22 13:48 IMPRESSION: 1. No central or segmental pulmonary embolism. 2. Dense airspace consolidation throughout the right lung with right mainstem endobronchial opacity, possible aspirated/mucoid material. Probable component of postobstructive atelectasis. 3. Multilobar left infiltrates suggesting pneumonia. Aspiration type pneumonia should be considered. 4. Loculated right pleural effusion. Small left pleural effusion. Electronically Signed: Wilfred Burgess MD ([place]) at 14:57 EDT , Meaningful Use Info Meaningful Use Diagnoses (Choose all that apply): None applicable Discharge Plan Admission Admit Date/Time: 03/13/22 18:54 Attending Provider: Eren Adam Primary Care Provider: Lizzeth Velasquez Consulting Providers: Susana Herrmann ; Eren Rivera ; Galina Ya ; Ronna Sultana ; Marcela Mosher ; Rosy Oliver [employer] Discharge Orders/Prescriptions Prescriptions: No Action (DME) Disability Placard See Rx Instructions .Route .MEDSUPPLY Qty: 1 RF: 0 acetaminophen [Tylenol Extra Strength] 500 mg tablet 500 mg PO BID PRN PRN (Reason: Pain) RF: 0 prochlorperazine maleate 10 mg tablet 10 mg PO Q6H PRN (Reason: nausea and vomiting) Qty: 30 RF: 2 lorazepam [Ativan] 0.5 mg tablet 0.5 mg PO TID PRN (Reason: Anxiety) RF: 0 guaifenesin 100 mg/5 mL liquid 200 mg PO Q4H PRN (Reason: Cough) RF: 0 oxycodone 5 mg tablet 5 mg PO Q8H PRN (Reason: Pain) RF: 0 MAGIC MOUTH WASH (BMX) 180 mL Suspension 15 ml PO Q4H PRN PRN (Reason: Mouth Pain) Qty: 180 RF: 1 cholecalciferol (vitamin D3) 1,250 mcg (50,000 unit) capsule 1,250 mcg PO TH RF: 0 polyethylene glycol 3350 [Miralax] 17 gram Powder In Packet 17 g PO BID RF: 0 amiodarone 200 mg tablet 200 mg PO DAILY RF: 0 metoprolol tartrate 100 mg tablet 100 mg PO BID Qty: 0 RF: 0 rivaroxaban 20 mg tablet 20 mg PO QDAY Qty: 30 RF: 12 loratadine [Claritin] 10 mg tablet 10 mg PO DAILY PRN (Reason: nasal allergy) Qty: 0 RF: 0 Glucagon Emergency Kit 1 mg Kit 1 mg IM PRN PRN (Reason: hypoglyemia) RF: 0 acetaminophen 325 mg Tablet 650 mg PO Q4H PRN (Reason: pain/fever) RF: 0 acetaminophen 650 mg Suppository 650 mg WA Q4H PRN (Reason: pain/fever) RF: 0 lidocaine 5 % Cream 1 applic TOPICAL PRN PRN (Reason: Pain) RF: 0 dextrose [Glucose Gel] 40 % Gel 10 g PO Q15M PRN (Reason: Hypoglycemia) RF: 0 metoclopramide HCl 5 mg Tablet 5 mg PO Q6H PRN PRN (Reason: Nausea) RF: 0 bisacodyl 10 mg Suppository 10 mg WA DAILY PRN (Reason: Constipation) RF: 0 Antacid 225-200 mg/5 mL Suspension 30 ml PO Q4H PRN PRN (Reason: Indigestion) RF: 0 Fleet Enema 19-7 gram/118 mL Enema 118 ml WA DAILY PRN (Reason: Constipation) RF: 0 Breo Ellipta 100-25 mcg/dose Blister With Device 1 inh INHALATION DAILY RF: 0 ondansetron HCl [Zofran] 4 mg Tablet 4 mg PO DAILY RF: 0 doxazosin 2 mg tablet 2 mg PO QHS RF: 0 potassium chloride 20 mEq tablet extended release 20 meq PO DAILY RF: 0 albuterol sulfate 90 mcg/actuation aerosol powdr breath activated 2 inh INHALATION Q4H PRN PRN (Reason: Sob &/Or Wheezing) Qty: 1 RF: 6 pravastatin 40 mg tablet 40 mg PO DINNER Qty: 90 RF: 3 pantoprazole [Protonix] 40 mg tablet,delayed release (DR/EC) 40 mg PO DAILY Qty: 30 RF: 3 fluoxetine 20 mg capsule 60 mg PO DAILY Qty: 270 RF: 1 fluticasone propionate 50 mcg/actuation spray,suspension 2 spray NASAL DAILY PRN PRN (Reason: Nasal Congestion) Qty: 16 RF: 3 tiotropium bromide 2.5 mcg/actuation mist 2 puff INHALATION DAILY Qty: 4 RF: 11 Referrals / Follow Up: Lizzeth Velasquez MD [Primary Care Provider] - Disposition Discharge Orders: Discharge Patient (Routine); Ordered 03/19/22 Ordered By: Dr. Soham Peace Charges/Coding Visit Charges Inpatient E&M: 09597 Disch Hosp
[2022-03-19] MEDS: Hyoscyamine Sulfate 0.125 MG Tablet SL/PO (02:18)
--- NOTE | 2022-03-19 02:18 | NURSING ---
family continues to be at bedside. pt very congested. pt encourage to cough but it is very weak. sl levsin given to help dry up secretion.
[2022-03-19] MEDS: morphine 10 MG/ML Syringe 5 MG IV (03:25)
[2022-03-19 03:32] VITALS: BP 100/68; PULSE 125; RESP 24; TEMP 36.6; O2SAT 91
--- NOTE | 2022-03-19 03:38 | NURSING ---
black hat discharge w pt to hospice
--- NOTE | 2022-03-19 08:59 | CASEMGMT ---
CLAIRE called [facility] and left a message for Edyta letting her know patient went to the Inpatient Hospice Unit last night. Letha Quevedo [employer] MORENO
== END 2022-03-19 03:40 | disposition hospice, inpatient (51) | DRG 137 ==
LOC: ED 18:53 → PCU 19:16
PROVIDERS: Hospitalist; Nurse Practitioner; Physician Assistant; Admitting Provider Family Medicine; Emergency Provider Emergency Medicine; PCP Internal Medicine; Visit Provider Internal Medicine
DX: J96.01 Acute respiratory failure with hypoxia (principal); C78.7 Secondary malignant neoplasm of liver and intrahepatic bile duct; C34.11 Malignant neoplasm of upper lobe, right bronchus or lung; D61.818 Other pancytopenia; D70.9 Neutropenia, unspecified; E43 Unspecified severe protein-calorie malnutrition; J44.9 Chronic obstructive pulmonary disease, unspecified; I11.0 Hypertensive heart disease with heart failure; I50.32 Chronic diastolic (congestive) heart failure; F31.9 Bipolar disorder, unspecified; I48.0 Paroxysmal atrial fibrillation; J70.0 Acute pulmonary manifestations due to radiation; E11.9 Type 2 diabetes mellitus without complications; D63.0 Anemia in neoplastic disease; D69.59 Other secondary thrombocytopenia; J45.40 Moderate persistent asthma, uncomplicated; G47.33 Obstructive sleep apnea (adult) (pediatric); F41.8 Other specified anxiety disorders; E78.5 Hyperlipidemia, unspecified; K21.9 Gastro-esophageal reflux disease without esophagitis; J91.0 Malignant pleural effusion; R44.1 Visual hallucinations; R50.81 Fever presenting with conditions classified elsewhere; Z79.899 Other long term (current) drug therapy; Z79.01 Long term (current) use of anticoagulants; Z87.891 Personal history of nicotine dependence; Z68.28 Body mass index [BMI] 28.0-28.9, adult
CPT/HCPCS: 36415; 36430; 70450; 71045; 71275; 80048; 80053; 80202; 81001; 83605; 83735; 84100; 84484; 85025; 85610; 85730; 86850; 86900; 86901; 86965; 87040; 87070; 87077; 87086; 87186; 87205; 87428; 87449; 92610; 93005; 94640; 94660; 94762; 96361; 96365; 96366; 96367; 96372; 96375; 96376; 97162; 97166; 97530; 97802; 99218; 99285; 99406; J2997; J7030; J7040; J7050; P9035; Q9967; A4216; G0378; J1447; J2405